=== PATIENT | male | born 1940 | race Caucasian/White ===

== ENCOUNTER 2018-07-31 17:37 | Inpatient (IN) ==
--- NOTE | 2018-07-31 19:03 | Emergency Department Note ---
Entered by Miguel Davenport acting as a scribe for Kurtis Valadez DO History of Present Illness General Chief complaint: Swelling/Edema to Extremity Stated complaint: SWELLING IN LEGS & BELLY Source: patient History of Present Illness Provider complaint: Swelling in legs Onset (ago): day(s) Location: lower extremity, left and right Maximum Pain Intensity: 2 Relieved By: + none Exacerbated By: + none Treatments prior to arrival: none The patient is a 78 year old male who presents to the Emergency Room with complaints of swelling in lower extremities. The patient reports that 3 days ago he saw a cardiology because he has had shortness of breath for 3 weeks along with cold symptoms and tightness in his chest. The patient states that over the past few weeks he has gained 20 lbs. After seeing his geodetic engineer, he states that they increased his dose of metolazone and put him on Augmentin. After these changes to his medications, he lost 8 of the pounds that he had gained. The patient adds that his geodetic engineer wanted to put him in the hospital 1 week ago to get rid of the excess fluids. Prior to arrival, the patient called the geodetic engineer and they told him to come to the ED. The patient has a history of CHF. Home Medications Home Medications Medication Instructions Recorded Confirmed Type amoxicillin-pot clavulanate 1 tab PO BID 07/31/18 07/31/18 History ascorbic acid (vitamin C) 500 mg PO DAILY 07/31/18 07/31/18 History aspirin 81 mg PO DAILY 07/31/18 07/31/18 History citalopram 20 mg PO DAILY 07/31/18 07/31/18 History cod liver oil 1 cap PO DAILY 07/31/18 07/31/18 History esomeprazole magnesium 40 mg PO DAILY 07/31/18 07/31/18 History glipizide 5 mg PO BIDM 07/31/18 07/31/18 History glipizide 10 mg PO BIDM 07/31/18 07/31/18 History guaifenesin 600 mg PO BID PRN 07/31/18 07/31/18 History hydrocodone-acetaminophen 1 tab PO TID PRN 07/31/18 07/31/18 History insulin glargine [Lantus Solostar 24 units SUBCUT HS 07/31/18 07/31/18 History U-100 Insulin] pofmz-[id number] 1 cap PO DAILY 07/31/18 07/31/18 History [krill oil] lidocaine [Lidoderm] 1 patch TOPICAL DAILY 07/31/18 07/31/18 History lisinopril 40 mg PO DAILY 07/31/18 07/31/18 History metolazone 2.5 mg PO MOFR@0900 07/31/18 07/31/18 History multivitamin 1 cap PO DAILY 07/31/18 07/31/18 History omega 8-qbx-frt-fish oil 1 cap PO DAILY 07/31/18 07/31/18 History potassium chloride 10 meq PO DAILY 07/31/18 07/31/18 History pravastatin [Pravachol] 20 mg PO HS 07/31/18 07/31/18 History spironolactone 12.5 mg PO DAILY 07/31/18 07/31/18 History tamsulosin 2 cap PO DAILY@1800 07/31/18 07/31/18 History torsemide 60 mg PO DAILY 07/31/18 07/31/18 History Allergies Allergy/AdvReac Type Severity Reaction Status Date / Time No Known Allergies Verified 07/31/18 23:07 Past Med/Surg History Medical History Venous insufficiency (Chronic) Narcotic dependence (Chronic) Chronic back pain (Chronic) GERD (gastroesophageal reflux disease) (Chronic) Hyperlipidemia (Chronic) Type 2 diabetes mellitus (Chronic) Chronic diastolic heart failure (Chronic) Hypertension (Chronic) Prostate cancer (Resolved) "Prostate, adenocarcinoma, cristina 3 + 3, 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, cT1c, group I TREATMENT: Prostate seed implant - Cesium 131 - 06/30/2011 - monotherapy alone, Lupron for 6 months prior to implantation." Diaphragmatic hernia (Chronic) Diverticulitis (Resolved) Surgical History History of knee replacement (Resolved) History of hip replacement (Resolved) Status post hernia repair (Resolved) Family History Mother Stroke Social History Communication Ability: Effective Beliefs That Will Affect Care: None marital status: Current Living Situation: Alone current occupational status: retired Feels Safe at Home: Yes Safety Concerns: Feels Safe At This Time Smoking Status: Unknown if ever smoked Hx Alcohol Use: Yes Hx Substance Use: No Review of Systems See HPI for pertinent positives & negatives. and A total of 10 systems reviewed and were otherwise negative Physical Exam Vital Signs Vital Signs - 24 hr 07/31/18 19:48 07/31/18 19:49 07/31/18 21:00 Temperature Temperature Source Pulse Rate 73 Pulse Rate [Finger] 73 70 Pulse Rhythm [Finger] Regular Pulse Strength [Finger] Normal Respiratory Rate 20 21 15 Respiratory Effort / Characteristics Non-Labored Non-Labored Respiratory Depth Normal Normal Respiratory Pattern Regular Blood Pressure Blood Pressure [Left Arm] Blood Pressure [Right Arm] 108/68 147/69 H Blood Pressure Mean [Left Arm] Blood Pressure Mean [Right Arm] 81 95 Blood Pressure Position [Right Arm] Sitting Lying Pulse Oximetry 98 99 97 Oxygen Delivery Method Room Air Room Air Room Air 07/31/18 22:46 08/01/18 00:18 08/01/18 00:30 Temperature 36.3 C L Temperature Source Oral Pulse Rate 76 Pulse Rate [Finger] 76 117 H Pulse Rhythm [Finger] Regular Pulse Strength [Finger] Normal Normal Respiratory Rate 16 16 20 Respiratory Effort / Characteristics Non-Labored Non-Labored Spontaneous Respiratory Depth Normal Normal Respiratory Pattern Regular Blood Pressure 128/90 Blood Pressure [Left Arm] Blood Pressure [Right Arm] 156/69 H 115/73 Blood Pressure Mean [Left Arm] Blood Pressure Mean [Right Arm] 98 87 Blood Pressure Position [Right Arm] Lying Pulse Oximetry 98 95 97 Oxygen Delivery Method Room Air Room Air Room Air 08/01/18 01:05 08/01/18 05:16 08/01/18 08:21 Temperature 36.8 C 36.9 C Temperature Source Oral Oral Pulse Rate 76 Pulse Rate [Finger] 73 85 Pulse Rhythm [Finger] Pulse Strength [Finger] Respiratory Rate 20 20 Respiratory Effort / Characteristics Respiratory Depth Respiratory Pattern Blood Pressure Blood Pressure [Left Arm] 172/76 H 138/78 Blood Pressure [Right Arm] Blood Pressure Mean [Left Arm] 108 98 Blood Pressure Mean [Right Arm] Blood Pressure Position [Right Arm] Pulse Oximetry 94 93 Oxygen Delivery Method Room Air 08/01/18 11:23 08/01/18 15:59 Temperature 36.4 C L 36.3 C L Temperature Source Oral Oral Pulse Rate Pulse Rate [Finger] 83 77 Pulse Rhythm [Finger] Pulse Strength [Finger] Respiratory Rate 18 16 Respiratory Effort / Characteristics Respiratory Depth Respiratory Pattern Blood Pressure Blood Pressure [Left Arm] 153/73 H 135/67 Blood Pressure [Right Arm] Blood Pressure Mean [Left Arm] 99 89 Blood Pressure Mean [Right Arm] Blood Pressure Position [Right Arm] Pulse Oximetry 90 94 Oxygen Delivery Method GENERAL: Patient is awake alert in no acute distress patient is resting comfortably and showing no signs of anxiety EYES: The conjunctivae are clear. The pupils are round and reactive. EARS, NOSE, MOUTH AND THROAT: The nose is without any evidence of any deformity. Mucous membranes are moist tongue is midline NECK: The neck is nontender and supple. RESPIRATORY: Diminished breath sounds were noted throughout. There were rales in all lung olsen. Shallow respirations were noted. CARDIOVASCULAR: Regular rate and rhythm noted there no murmurs rubs or gallops normal S1 normal S2 GASTROINTESTINAL: The abdomen is soft. Bowel sounds are present in all quadrants. Abdomen is nontender MUSCULOSKELETAL/EXTREMITIES: There is no evidence of gross deformity full range of motion is noted in the hips and shoulders SKIN: There is bilateral pedal edema appreciated. Venous stasis changes are noted. NEUROLOGIC: Patient is awake alert and oriented x3. Course 1845: Past medical records reviewed. The patient was evaluated in room C12A, and a complete history and physical examination were performed. 1900: I consulted Dr. Cross-Cardiology who reccomended IV Thurosemide. 2051: The patient's creatinine went up a little so I am going to order Bumex 2051: I reviewed the patient's case with Dr. Parker [facility] Hospitalist. He will evaluate the patient for further management. 2150: Upon reevaluation, the patient appeared to have improvement of his symptoms. I discussed tonight's findings with him. He verbalized agreement of the treatment plan. He was discharged home. Administered Medications Hydrocodone Bitart/Acetaminophen ([place] 10/325) 1 tab PO TID PRN PRN Reason: Pain Stop: 08/15/18 00:42 Last Admin: 08/01/18 07:51 Dose: 1 tab Documented by: [id number] Aspirin (Ecotrin Ectab) 81 mg PO DAILY VAISHALI Stop: 08/31/18 08:59 Last Admin: 08/01/18 07:51 Dose: 81 mg Documented by: [id number] Citalopram Hydrobromide (Celexa) 20 mg PO DAILY VIASHALI Stop: 08/31/18 08:59 Last Admin: 08/01/18 07:50 Dose: 20 mg Documented by: [id number] Doxycycline Hyclate (Vibramycin) 100 mg PO BID VAISHALI Stop: 08/11/18 08:59 Last Admin: 08/01/18 07:52 Dose: 100 mg Documented by: [id number] Heparin Sodium (Porcine) (Heparin Sodium (Porcine)) 5,000 units SQ Q8 VAISHALI Stop: 08/31/18 05:59 Last Admin: 08/01/18 13:25 Dose: 5,000 units Documented by: [id number] Cosigned by: [id number] Admin: 08/01/18 06:08 Dose: 5,000 units Documented by: [id number] Cosigned by: [id number] Insulin Aspart (Novolog Flexpen) 0 units SC ACHS VAISHALI Stop: 08/31/18 01:14 Last Admin: 08/01/18 17:53 Dose: 5 units Documented by: [id number] Cosigned by: [id number] Admin: 08/01/18 13:23 Dose: 6 units Documented by: [id number] Cosigned by: [id number] Admin: 08/01/18 08:43 Dose: 4 units Documented by: [id number] Cosigned by: [id number] Admin: 08/01/18 01:46 Dose: 5 units Documented by: [id number] Cosigned by: [id number] Lidocaine (Lidoderm 5%) 1 patch TD DAILY VAISHALI Stop: 08/31/18 08:59 Last Admin: 08/01/18 07:48 Dose: Not Given Documented by: [id number] Pantoprazole Sodium (Protonix) 40 mg PO DAILY VAISHALI Stop: 08/31/18 08:59 Last Admin: 08/01/18 07:52 Dose: 40 mg Documented by: [id number] Tamsulosin HCl (Flomax) 0.4 mg PO DAILY@1800 VAISHALI Stop: 08/31/18 17:59 Last Admin: 08/01/18 17:54 Dose: 0.4 mg Documented by: [id number] Discontinued Medications Bumetanide (Bumex) 0.5 mg IV ONE ONE Stop: 07/31/18 20:53 Last Admin: 07/31/18 22:11 Dose: 0.5 mg Documented by: [id number] Doxycycline Hyclate 100 mg/ (Dextrose) 110 mls @ 50 mls/hr IV NOW STA Stop: 08/01/18 02:00 Last Infusion: 08/01/18 02:45 Dose: 0 mls/hr Documented by: [id number] Admin: 08/01/18 00:21 Dose: 50 mls/hr Documented by: [id number] Insulin Glargine (Lantus Solostar Pen) 10 units SQ ONE ONE Stop: 08/01/18 01:16 Last Admin: 08/01/18 01:45 Dose: 10 units Documented by: [id number] Cosigned by: [id number] Medical Decision Making Differential Diagnosis Differential diagnosis: Etiologies such as infections, reactive airway disease, COPD, pneumonia, pleural effusion, pulmonary edema, ARDS, pneumothorax, CHF, cardiac ischemia, cardiac tamponade, dysrhythmia, anemia, pulmonary embolism, musculoskeletal, gastrointestinal process, as well as others were entertained. Medical Records Attestation: I reviewed the patient's medical records. Home Medications Current Medication List: was personally reviewed by me Laboratory Data Attestation: I reviewed the patient's lab results. Result diagrams: 08/01/18 07:49 08/01/18 07:49 Lab Results 07/31/18 07/31/18 07/31/18 Range/Units 19:47 19:47 19:47 WBC 10.73 (4.8-10.8) K/uL RBC 3.73 L (4.7-6.1) M/uL Hgb 12.1 L (14.0-18.0) g/dL Hct 35.2 L (42-52) % MCV 94.4 (80-100) fL MCH 32.4 (25-34) pg MCHC 34.4 (32-36) g/dL RDW Std Deviation 40.9 (36.4-46.3) fL RDW Coeff of Faiza 12.0 (11.5-14.5) % Plt Count 218 (130-400) K/uL MPV 11.0 H (7.4-10.4) fL Immature Gran % (Auto) 1.0 % Neut % (Auto) 64.3 % Lymph % (Auto) 23.8 % [place] % (Auto) 9.0 % Eos % (Auto) 1.7 % Baso % (Auto) 0.2 % Immature Gran # (Auto) 0.11 H (0.00-0.02) K/uL Neut # (Auto) 6.90 H (1.4-6.5) K/uL Lymph # (Auto) 2.55 (1.2-3.4) K/uL [place] # (Auto) 0.97 H (0.11-0.59) K/uL Eos # (Auto) 0.18 (0-0.5) K/uL Baso # (Auto) 0.02 (0-0.2) K/uL PT 10.8 (9.0-12.0) Seconds INR 1.1 (0.9-1.1) APTT 28.1 (21.0-31.0) Seconds PTT Ratio 1.0 D-Dimer (0-500) ug/L FEU ABG pH (7.35-7.45) ABG pCO2 (35-46) mmHg ABG pO2 (80-95) mm/Hg ABG HCO3 (19-24) mmol/L ABG O2 Saturation (90-95) % ABG Base Excess (-9-1.8) mEq/L Tim Test (Pos) Barometric Pressure mm/Hg Oxygen Given Sodium 130 L (136-145) mmol/L Potassium 4.4 (3.5-5.1) mmol/L Chloride 93 L (98-107) mmol/L Carbon Dioxide 29 (21-32) mmol/L Anion Gap 8.0 (3-11) BUN 56 H (7-18) mg/dl Creatinine 2.05 H (0.6-1.4) mg/dl Est Cr Clr Drug Dosing 40.7 ml/min Est GFR ( Amer) 34.4 Est GFR (Non-Af Amer) 29.7 BUN/Creatinine Ratio 27.2 H (10-20) Glucose 229 H (70-99) mg/dl POC Glucose (70-99) Estimat Average Glucose mg/dl Hemoglobin A1c (4.5-5.6) % Calcium 9.0 (8.5-10.1) mg/dl Magnesium 1.9 (1.8-2.4) mg/dl Total Bilirubin 0.7 (0.2-1) mg/dl AST 51 H (15-37) U/L ALT 64 (12-78) U/L Alkaline Phosphatase 94 (45-117) U/L Troponin I < 0.015 (0-0.045) ng/ml NT-Pro-B Natriuret Pep 27 (0-1800) pg/ml Total Protein 7.4 (6.4-8.2) gm/dl Albumin 3.4 (3.4-5.0) gm/dl Globulin 4.0 (2.5-4.0) gm/dl Albumin/Globulin Ratio 0.8 L (0.9-2) Urine Color Urine Appearance (Clear) Urine pH (4.5-7.5) Ur Specific [place] (1.000-1.030) Urine Protein (Negative) Urine Glucose (UA) (Negative) Urine Ketones (Negative) Urine Blood (Negative) Urine Nitrite (Negative) Urine Bilirubin (Negative) Urine Urobilinogen (Negative) Ur Leukocyte Esterase (Negative) 07/31/18 07/31/18 07/31/18 Range/Units 19:47 19:47 Unknown WBC (4.8-10.8) K/uL RBC (4.7-6.1) M/uL Hgb (14.0-18.0) g/dL Hct (42-52) % MCV (80-100) fL MCH (25-34) pg MCHC (32-36) g/dL RDW Std Deviation (36.4-46.3) fL RDW Coeff of Faiza (11.5-14.5) % Plt Count (130-400) K/uL MPV (7.4-10.4) fL Immature Gran % (Auto) % Neut % (Auto) % Lymph % (Auto) % [place] % (Auto) % Eos % (Auto) % Baso % (Auto) % Immature Gran # (Auto) (0.00-0.02) K/uL Neut # (Auto) (1.4-6.5) K/uL Lymph # (Auto) (1.2-3.4) K/uL [place] # (Auto) (0.11-0.59) K/uL Eos # (Auto) (0-0.5) K/uL Baso # (Auto) (0-0.2) K/uL PT (9.0-12.0) Seconds INR (0.9-1.1) APTT (21.0-31.0) Seconds PTT Ratio D-Dimer 500 (0-500) ug/L FEU ABG pH (7.35-7.45) ABG pCO2 (35-46) mmHg ABG pO2 (80-95) mm/Hg ABG HCO3 (19-24) mmol/L ABG O2 Saturation (90-95) % ABG Base Excess (-9-1.8) mEq/L Tim Test (Pos) Barometric Pressure mm/Hg Oxygen Given Sodium (136-145) mmol/L Potassium (3.5-5.1) mmol/L Chloride (98-107) mmol/L Carbon Dioxide (21-32) mmol/L Anion Gap (3-11) BUN (7-18) mg/dl Creatinine (0.6-1.4) mg/dl Est Cr Clr Drug Dosing ml/min Est GFR ( Amer) Est GFR (Non-Af Amer) BUN/Creatinine Ratio (10-20) Glucose (70-99) mg/dl POC Glucose (70-99) Estimat Average Glucose 203 mg/dl Hemoglobin A1c 8.7 H (4.5-5.6) % Calcium (8.5-10.1) mg/dl Magnesium (1.8-2.4) mg/dl Total Bilirubin (0.2-1) mg/dl AST (15-37) U/L ALT (12-78) U/L Alkaline Phosphatase (45-117) U/L Troponin I (0-0.045) ng/ml NT-Pro-B Natriuret Pep (0-1800) pg/ml Total Protein (6.4-8.2) gm/dl Albumin (3.4-5.0) gm/dl Globulin (2.5-4.0) gm/dl Albumin/Globulin Ratio (0.9-2) Urine Color Yellow Urine Appearance Clear (Clear) Urine pH 5.0 (4.5-7.5) Ur Specific [place] 1.014 (1.000-1.030) Urine Protein Negative (Negative) Urine Glucose (UA) Negative (Negative) Urine Ketones Negative (Negative) Urine Blood Negative (Negative) Urine Nitrite Negative (Negative) Urine Bilirubin Negative (Negative) Urine Urobilinogen Negative (Negative) Ur Leukocyte Esterase Negative (Negative) 08/01/18 08/01/18 08/01/18 Range/Units 01:03 01:50 07:49 WBC 11.21 H (4.8-10.8) K/uL RBC 3.87 L (4.7-6.1) M/uL Hgb 12.6 L (14.0-18.0) g/dL Hct 36.2 L (42-52) % MCV 93.5 (80-100) fL MCH 32.6 (25-34) pg MCHC 34.8 (32-36) g/dL RDW Std Deviation 40.9 (36.4-46.3) fL RDW Coeff of [place] 12.1 (11.5-14.5) % Plt Count 243 (130-400) K/uL MPV 11.1 H (7.4-10.4) fL Immature Gran % (Auto) 0.9 % Neut % (Auto) 54.5 % Lymph % (Auto) 33.5 % [place] % (Auto) 8.4 % Eos % (Auto) 2.3 % Baso % (Auto) 0.4 % Immature Gran # (Auto) 0.10 H (0.00-0.02) K/uL Neut # (Auto) 6.11 (1.4-6.5) K/uL Lymph # (Auto) 3.75 H (1.2-3.4) K/uL [place] # (Auto) 0.94 H (0.11-0.59) K/uL Eos # (Auto) 0.26 (0-0.5) K/uL Baso # (Auto) 0.05 (0-0.2) K/uL PT (9.0-12.0) Seconds INR (0.9-1.1) APTT (21.0-31.0) Seconds PTT Ratio D-Dimer (0-500) ug/L FEU ABG pH (7.35-7.45) ABG pCO2 (35-46) mmHg ABG pO2 (80-95) mm/Hg ABG HCO3 (19-24) mmol/L ABG O2 Saturation (90-95) % ABG Base Excess (-9-1.8) mEq/L Tim Test (Pos) Barometric Pressure mm/Hg Oxygen Given Sodium (136-145) mmol/L Potassium (3.5-5.1) mmol/L Chloride (98-107) mmol/L Carbon Dioxide (21-32) mmol/L Anion Gap (3-11) BUN (7-18) mg/dl Creatinine (0.6-1.4) mg/dl Est Cr Clr Drug Dosing ml/min Est GFR ( Amer) Est GFR (Non-Af Amer) BUN/Creatinine Ratio (10-20) Glucose (70-99) mg/dl POC Glucose 219 H (70-99) Estimat Average Glucose mg/dl Hemoglobin A1c (4.5-5.6) % Calcium (8.5-10.1) mg/dl Magnesium (1.8-2.4) mg/dl Total Bilirubin (0.2-1) mg/dl AST (15-37) U/L ALT (12-78) U/L Alkaline Phosphatase (45-117) U/L Troponin I (0-0.045) ng/ml NT-Pro-B Natriuret Pep (0-1800) pg/ml Total Protein (6.4-8.2) gm/dl Albumin (3.4-5.0) gm/dl Globulin (2.5-4.0) gm/dl Albumin/Globulin Ratio (0.9-2) Urine Color Yellow Urine Appearance Clear (Clear) Urine pH 5.0 (4.5-7.5) Ur Specific [place] 1.012 (1.000-1.030) Urine Protein Negative (Negative) Urine Glucose (UA) Negative (Negative) Urine Ketones Negative (Negative) Urine Blood Negative (Negative) Urine Nitrite Negative (Negative) Urine Bilirubin Negative (Negative) Urine Urobilinogen Negative (Negative) Ur Leukocyte Esterase Negative (Negative) 08/01/18 08/01/18 08/01/18 Range/Units 07:49 13:21 15:37 WBC (4.8-10.8) K/uL RBC (4.7-6.1) M/uL Hgb (14.0-18.0) g/dL Hct (42-52) % MCV (80-100) fL MCH (25-34) pg MCHC (32-36) g/dL RDW Std Deviation (36.4-46.3) fL RDW Coeff of [place] (11.5-14.5) % Plt Count (130-400) K/uL MPV (7.4-10.4) fL Immature Gran % (Auto) % Neut % (Auto) % Lymph % (Auto) % [place] % (Auto) % Eos % (Auto) % Baso % (Auto) % Immature Gran # (Auto) (0.00-0.02) K/uL Neut # (Auto) (1.4-6.5) K/uL Lymph # (Auto) (1.2-3.4) K/uL [place] # (Auto) (0.11-0.59) K/uL Eos # (Auto) (0-0.5) K/uL Baso # (Auto) (0-0.2) K/uL PT (9.0-12.0) Seconds INR (0.9-1.1) APTT (21.0-31.0) Seconds PTT Ratio D-Dimer (0-500) ug/L FEU ABG pH 7.41 (7.35-7.45) ABG pCO2 46 (35-46) mmHg ABG pO2 73 L (80-95) mm/Hg ABG HCO3 29 H (19-24) mmol/L ABG O2 Saturation 94.1 (90-95) % ABG Base Excess 3.5 H (-9-1.8) mEq/L Tim Test Pos (Pos) Barometric Pressure 737.6 mm/Hg Oxygen Given ROOM AIR Sodium 132 L (136-145) mmol/L Potassium 4.2 (3.5-5.1) mmol/L Chloride 96 L (98-107) mmol/L Carbon Dioxide 26 (21-32) mmol/L Anion Gap 10.0 (3-11) BUN 56 H (7-18) mg/dl Creatinine 1.95 H (0.6-1.4) mg/dl Est Cr Clr Drug Dosing 42.4 ml/min Est GFR ( Amer) 36.6 Est GFR (Non-Af Amer) 31.6 BUN/Creatinine Ratio 28.9 H (10-20) Glucose 168 H (70-99) mg/dl POC Glucose 213 H (70-99) Estimat Average Glucose mg/dl Hemoglobin A1c (4.5-5.6) % Calcium 9.3 (8.5-10.1) mg/dl Magnesium (1.8-2.4) mg/dl Total Bilirubin (0.2-1) mg/dl AST (15-37) U/L ALT (12-78) U/L Alkaline Phosphatase (45-117) U/L Troponin I (0-0.045) ng/ml NT-Pro-B Natriuret Pep (0-1800) pg/ml Total Protein (6.4-8.2) gm/dl Albumin (3.4-5.0) gm/dl Globulin (2.5-4.0) gm/dl Albumin/Globulin Ratio (0.9-2) Urine Color Urine Appearance (Clear) Urine pH (4.5-7.5) Ur Specific [place] (1.000-1.030) Urine Protein (Negative) Urine Glucose (UA) (Negative) Urine Ketones (Negative) Urine Blood (Negative) Urine Nitrite (Negative) Urine Bilirubin (Negative) Urine Urobilinogen (Negative) Ur Leukocyte Esterase (Negative) 08/01/18 Range/Units 16:27 WBC (4.8-10.8) K/uL RBC (4.7-6.1) M/uL Hgb (14.0-18.0) g/dL Hct (42-52) % MCV (80-100) fL MCH (25-34) pg MCHC (32-36) g/dL RDW Std Deviation (36.4-46.3) fL RDW Coeff of [place] (11.5-14.5) % Plt Count (130-400) K/uL MPV (7.4-10.4) fL Immature Gran % (Auto) % Neut % (Auto) % Lymph % (Auto) % [place] % (Auto) % Eos % (Auto) % Baso % (Auto) % Immature Gran # (Auto) (0.00-0.02) K/uL Neut # (Auto) (1.4-6.5) K/uL Lymph # (Auto) (1.2-3.4) K/uL [place] # (Auto) (0.11-0.59) K/uL Eos # (Auto) (0-0.5) K/uL Baso # (Auto) (0-0.2) K/uL PT (9.0-12.0) Seconds INR (0.9-1.1) APTT (21.0-31.0) Seconds PTT Ratio D-Dimer (0-500) ug/L FEU ABG pH (7.35-7.45) ABG pCO2 (35-46) mmHg ABG pO2 (80-95) mm/Hg ABG HCO3 (19-24) mmol/L ABG O2 Saturation (90-95) % ABG Base Excess (-9-1.8) mEq/L Tim Test (Pos) Barometric Pressure mm/Hg Oxygen Given Sodium (136-145) mmol/L Potassium (3.5-5.1) mmol/L Chloride (98-107) mmol/L Carbon Dioxide (21-32) mmol/L Anion Gap (3-11) BUN (7-18) mg/dl Creatinine (0.6-1.4) mg/dl Est Cr Clr Drug Dosing ml/min Est GFR ( Amer) Est GFR (Non-Af Amer) BUN/Creatinine Ratio (10-20) Glucose (70-99) mg/dl POC Glucose 210 H (70-99) Estimat Average Glucose mg/dl Hemoglobin A1c (4.5-5.6) % Calcium (8.5-10.1) mg/dl Magnesium (1.8-2.4) mg/dl Total Bilirubin (0.2-1) mg/dl AST (15-37) U/L ALT (12-78) U/L Alkaline Phosphatase (45-117) U/L Troponin I (0-0.045) ng/ml NT-Pro-B Natriuret Pep (0-1800) pg/ml Total Protein (6.4-8.2) gm/dl Albumin (3.4-5.0) gm/dl Globulin (2.5-4.0) gm/dl Albumin/Globulin Ratio (0.9-2) Urine Color Urine Appearance (Clear) Urine pH (4.5-7.5) Ur Specific [place] (1.000-1.030) Urine Protein (Negative) Urine Glucose (UA) (Negative) Urine Ketones (Negative) Urine Blood (Negative) Urine Nitrite (Negative) Urine Bilirubin (Negative) Urine Urobilinogen (Negative) Ur Leukocyte Esterase (Negative) Imaging Data Radiologist's Impression: Radiology results as stated below per my review and the radiologist's interpretation: XR chest 1V portable CLINICAL HISTORY: Dyspnea COMPARISON STUDY: Chest radiograph March 06, 2016. FINDINGS: Lung volumes are normal. There is no pneumothorax or pleural effusion. There is no evidence for pulmonary edema. Mild cardiomegaly is noted. Apparent bibasilar opacities favor atelectasis or epicardial fat pad. There is no definite consolidation. IMPRESSION: 1. No definite acute cardiopulmonary. 2. Bibasilar opacities which favor atelectasis or prominent epicardial fat pad. Electronically signed by: Jose Ontiveros M.D. 07/31/2018 8:54 PM ECG Data Attestation: I personally reviewed and interpreted this ECG as follows: Indication: other (edema of the lower extremeities bilaterally) Rate (beats per minute): 73 Rhythm: normal sinus Findings: no PAC, no PVC, no ST depression, no ST elevation and no ectopy Comparison ECG Date: from (02/05/16) Change: no significant change Blood Pressure Blood Pressure Findings: Normal blood pressure MDM Narrative The patient is an 78-year-old male who presented to the emergency department for an evaluation of difficulty breathing. The patient has been having weight gain as well as peripheral edema. He also describes orthopnea. The patient's his tory and physical exam appear to be consistent with congestive heart failure. I discussed patient's condition with his primary cardiology group. I also discussed his case with the on-call [facility] hospitalist. They have agreed to evaluate the patient in the emergency department for further management and disposition. The patient was treated with a low dose of IV Bumex in the emergency department. He was resting comfortably on subsequent reevaluation. Impression & Plan CHF (congestive heart failure), Edema, peripheral Discharge Plan Visit Data *Final* Discharge Date/Time: 08/01/18 00:18 Chief Complaint: Swelling/Edema to Extremity Stated Complaint: SWELLING IN LEGS & BELLY ED Provider: Kurtis Valadez Discharge Problem: CHF (congestive heart failure), Edema, peripheral Patient Disposition: Admitted As Inpatient Discharge Instructions Interventions: ED Discharge Assessment Last Done: 08/01/18 00:18 Discharge Problem: CHF (congestive heart failure) Qualifiers: Heart failure type: unspecified Heart failure chronicity: unspecified Qualified Code(s): I50.9 - Heart failure, unspecified The scribe's documentation has been prepared under my direction and personally reviewed by me in its entirety. I confirm that the note above accurately reflects all work, treatment, procedures, and medical decision making performed by me.
[2018-07-31 19:59] LABS: Basophils # (auto) 0.02 K/uL (0-0.2); Basophils % (auto) 0.2 %; Eosinophils # (auto) 0.18 K/uL (0-0.5); Eosinophils % (auto) 1.7 %; Hematocrit (blood only) 35.2 % (42-52); Hemoglobin 12.1 g/dL (14.0-18.0); Immature Granulocytes # (auto) 0.11 K/uL (0.00-0.02); Lymphocytes # (auto) 2.55 K/uL (1.2-3.4); Lymphocytes % (auto) 23.8 %; Mean Corpuscular Hgb Conc 34.4 g/dL (32-36); Mean Corpuscular Volume 94.4 fL (80-100); Monocytes # (auto) 0.97 K/uL (0.11-0.59); Neutrophils % (auto) 64.3 %; Platelet Count 218 K/uL (130-400); RDW Standard Deviation 40.9 fL (36.4-46.3); Red Blood Count 3.73 M/uL (4.7-6.1); White Blood Count 10.73 K/uL (4.8-10.8)
[2018-07-31 20:18] LABS: INR 1.1 (0.9-1.1); Partial Thromboplastin Time 28.1 Seconds (21.0-31.0); Prothrombin Time 10.8 Seconds (9.0-12.0)
[2018-07-31 20:19] LABS: Alanine Aminotransferase 64 U/L (12-78); Albumin Level 3.4 gm/dl (3.4-5.0); Aspartate Aminotransferase 51 U/L (15-37); BUN Creatinine Ratio 27.2 (10-20); Blood Urea Nitrogen 56 mg/dl (7-18); Carbon Dioxide 29 mmol/L (21-32); Chloride 93 mmol/L (98-107); Creatinine Clr Calc Pharmacy 40.7 ml/min; Est GFR (African American) 34.4; Est GFR (Non-African American) 29.7; Glucose 229 mg/dl (70-99); Magnesium 1.9 mg/dl (1.8-2.4); Potassium 4.4 mmol/L (3.5-5.1); Sodium 130 mmol/L (136-145)
[2018-07-31 20:24] LABS: Albumin Globulin Ratio 0.8 (0.9-2); Alkaline Phosphatase 94 U/L (45-117); Bilirubin,Total 0.7 mg/dl (0.2-1); NT Pro B Type Natriuretic Pept 27 pg/ml (0-1800); Total Protein 7.4 gm/dl (6.4-8.2); Troponin I < 0.015 ng/ml (0-0.045)
[2018-07-31] MEDS ORDERED: BUMETANIDE 0.5 MG in SYRINGE 0 ML IV ONE (20:52)
[2018-07-31] MEDS ORDERED: BUMETANIDE SOLN 1 MG/4 ML VIAL IV ONE (20:52)
--- NOTE | 2018-07-31 20:55 | XRay Report ---
XR chest 1V portable CLINICAL HISTORY: Dyspnea COMPARISON STUDY: Chest radiograph March 06, 2016. FINDINGS: Lung volumes are normal. There is no pneumothorax or pleural effusion. There is no evidence for pulmonary edema. Mild cardiomegaly is noted. Apparent bibasilar opacities favor atelectasis or e picardial fat pad. There is no definite consolidation. IMPRESSION: 1. No definite acute cardiopulmonary. 2. Bibasilar opacities which favor atelectasis or prominent epicardial fat pad. Electronically signed by: Jose Ontiveros M.D. 07/31/2018 8:54 PM
[2018-07-31 22:07] LABS: D Dimer 500 ug/L FEU (0-500)
--- NOTE | 2018-07-31 22:11 | History & Physical Report ---
Date of Service July 31, 2018 Assessment & Plan (1) Heart failure, diastolic, with acute decompensation: This is an 78-year-old male with a past medical history of chronic diastolic heart failure, DM II, HTN, HLD, venous insufficiency, chronic low back pain and other medical problems listed below who presents with worsening bilateral lower extremity swelling x 2 weeks and was found to have acute decompensated heart failure. -Took home dose Torsemide 60mg, metolazone 2.5mg, Spironolactone 12.5mg this morning -Given Bumex 0.5mg IV x 1 in ED -BNP pending, d-dimer wnl, troponin wnl -CXR without evidence of pulmonary edema -Echo from December 2015 with preserved EF of 65-69%, mild TR -Repeat labs and ECG in AM -Restrict fluid intake, monitor daily weights -Further management per Dr. Gaitan's addendum (2) Acute kidney injury: Cr elevated at 2.05 (baseline mid-1s) -Likely due to increased diuretic doses -Hold lisinopril -Continue trending BMP, avoid nephrotoxic agents when able (3) Type 2 diabetes mellitus: A1c of 8.4 in Apr 2018 -Hold home agents -Repeat a1c -SSI while in-patient -BSG AC HS (4) Hypertension: Slightly elevated at 147/69 -Hold lisinopril in setting of PARMJIT -Add PRN medication if indicated (5) Bronchitis: Resolving -Continue Augmentin to complete course (6) Chronic back pain: Continue home dose hydrocodone (7) GERD (gastroesophageal reflux disease): Continue PPI (8) Mood disorder: Continue Celexa Code status: FULL per discussion with patient PCP: Dalia Dispo: Admitted to telemetry Patient seen in collaboration with Dr. Gaitan. Please see addendum. History of Present Illness Chief Complaint: Lower extremity swelling Primary Care Provider: NO PCP This is an 78-year-old male with a past medical history of chronic diastolic heart failure, DM II, HTN, HLD, venous insufficiency, chronic low back pain and other medical problems listed below who presents with worsening bilateral lower extremity swelling x 2 weeks. Patient has seen Dr. Tilley and Fredis Pink PA-C in clinic over the past few weeks with diuretic medication adjustments and attempt to decrease volume overload. On July 27, patient was instructed to discontinue Lasix and to start torsemide 60 mg daily as well as taking 2.5 mg metolazone in the morning on Mondays and Fridays. Patient continues to note worsening swelling to lower extremities with some blistering and weeping. Legs have become red and are painful. Also notes abdominal distention. Experiences orthopnea but but denies shortness of breath as long as he is seated upright. No lightheadedness, near syncope, chest pain, palpitations or wheezing. Was also started on course of Augmentin for bronchitis, for which he has completed 5 days of antibiotics. Most recent echo on record is from December 2015 that shows preserved EF of 65-69% and mild tricuspid regurgitation. Has been trying to watch his diet. Denies fever, chills, headache, nausea, vomiting, abdominal pain, dysuria, diarrhea or constipation. Allergies Allergy/AdvReac Type Severity Reaction Status Date / Time No Known Allergies Verified 07/31/18 23:07 Home Medications Home Medications Medication Instructions Recorded Confirmed Type amoxicillin-pot clavulanate 1 tab PO BID 07/31/18 07/31/18 History ascorbic acid (vitamin C) 500 mg PO DAILY 07/31/18 07/31/18 History aspirin 81 mg PO DAILY 07/31/18 07/31/18 History citalopram 20 mg PO DAILY 07/31/18 07/31/18 History cod liver oil 1 cap PO DAILY 07/31/18 07/31/18 History esomeprazole magnesium 40 mg PO DAILY 07/31/18 07/31/18 History glipizide 5 mg PO BIDM 07/31/18 07/31/18 History glipizide 10 mg PO BIDM 07/31/18 07/31/18 History guaifenesin 600 mg PO BID PRN 07/31/18 07/31/18 History hydrocodone-acetaminophen 1 tab PO TID PRN 07/31/18 07/31/18 History insulin glargine [Lantus Solostar 24 units SUBCUT HS 07/31/18 07/31/18 History U-100 Insulin] [id number] 1 cap PO DAILY 07/31/18 07/31/18 History [krill oil] lidocaine [Lidoderm] 1 patch TOPICAL DAILY 07/31/18 07/31/18 History lisinopril 40 mg PO DAILY 07/31/18 07/31/18 History metolazone 2.5 mg PO MOFR@0900 07/31/18 07/31/18 History multivitamin 1 cap PO DAILY 07/31/18 07/31/18 History omega 9-nms-gat-fish oil 1 cap PO DAILY 07/31/18 07/31/18 History potassium chloride 10 meq PO DAILY 07/31/18 07/31/18 History pravastatin [Pravachol] 20 mg PO HS 07/31/18 07/31/18 History spironolactone 12.5 mg PO DAILY 07/31/18 07/31/18 History tamsulosin 2 cap PO DAILY@1800 07/31/18 07/31/18 History torsemide 60 mg PO DAILY 07/31/18 07/31/18 History Past Med/Surg History Medical History Venous insufficiency (Chronic) Narcotic dependence (Chronic) Chronic back pain (Chronic) GERD (gastroesophageal reflux disease) (Chronic) Hyperlipidemia (Chronic) Type 2 diabetes mellitus (Chronic) Chronic diastolic heart failure (Chronic) Hypertension (Chronic) Prostate cancer (Resolved) "Prostate, adenocarcinoma, cristina 3 + 3, 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, cT1c, group I TREATMENT: Prostate seed implant - Cesium 131 - 06/30/2011 - monotherapy alone, Lupron for 6 months prior to implantation." Diaphragmatic hernia (Chronic) Diverticulitis (Resolved) Surgical History History of knee replacement (Resolved) History of hip replacement (Resolved) Status post hernia repair (Resolved) Family History Mother Stroke Social History Preferred Language: Setswana Communication Ability: Effective Support Team Assoc Required: No Beliefs That Will Affect Care: None Current Living Situation: Alone current occupational status: retired Feels Safe at Home: Yes Safety Concerns: Feels Safe At This Time Smoking Status: Unknown if ever smoked Hx Alcohol Use: Yes Hx Substance Use: No Review of Systems All systems reviewed & are unremarkable except as noted in HPI & below Physical Exam Vital Signs (Past 24 Hours): Last Vital Signs Temp 36.7 C 07/31/18 17:48 Pulse 73 07/31/18 19:49 Resp 21 07/31/18 19:49 BP 108/68 07/31/18 19:48 Pulse Ox 99 07/31/18 19:49 Physical Exam: General Appearance: WD/WN, no apparent distress, obese Head: normocephalic, atraumatic Eyes: normal inspection, PERRL, EOMI ENT: hearing grossly normal, pharynx normal (moist mucous membranes) Neck: supple, no JVD, no adenopathy Respiratory/Chest: lungs clear to auscultation. No wheezes, rales or rhonci. No respiratory distress or accessory muscle use Cardiovascular: regular rate, rhythm, no murmur, normal peripheral pulses, 2+ pitting edema of bilateral lower extremity Abdomen/GI: normal bowel sounds, distended, firm, non-tender to palpation Extremities/Musculoskelatal: normal inspection, no calf tenderness, normal capillary refill Neurologic/Psych: alert, normal mood/affect, oriented x 3 Skin: normal color, warm/dry. BLE with hyperpigmentation and erythema, areas of closed blisters on both extremities Results & Data Laboratory Results Short CBC 07/31/18 Range/Units 19:47 WBC 10.73 (4.8-10.8) K/uL Hgb 12.1 L (14.0-18.0) g/dL Hct 35.2 L (42-52) % Plt Count 218 (130-400) K/uL BMP 07/31/18 19:47 Sodium 130 L Potassium 4.4 Chloride 93 L Carbon Dioxide 29 BUN 56 H Creatinine 2.05 H Glucose 229 H Calcium 9.0 Cardiac Enzymes 07/31/18 Range/Units 19:47 Troponin I < 0.015 (0-0.045) ng/ml Liver Function 07/31/18 Range/Units 19:47 Total Bilirubin 0.7 (0.2-1) mg/dl AST 51 H (15-37) U/L ALT 64 (12-78) U/L Alkaline Phosphatase 94 (45-117) U/L Albumin 3.4 (3.4-5.0) gm/dl Diagnostic Findings CXR: IMPRESSION: 1. No definite acute cardiopulmonary. 2. Bibasilar opacities which favor atelectasis or prominent epicardial fat pad. ECG Rhythm: normal sinus Change: no significant change Code Status & VTE Plan Code Status FULL Supervising Physician Co-Signing Physician Notes IM ATTENDING : Patient seen and examined. History obtained from patient and records. Preceding documentation by Ms. Vale Maurer PA-C reviewed. FINAL ASSESSMENT AND PLAN as follows : Exertional SOB/weight gain ? Subacute RSHF History diastolic dysfunction, EF 65% TTE 2016 Some degree of weight loss after diuretic regimen changes following outpx [facility] Cardiology visit last week. History nonocclusive CAD as per records Abdominal distention rule out ascites Bilateral LE cellulitis no sepsis ARF on CRI Recent bronchitis, improved post Augmentin Rx Acute on chronic anemia ? Secondary to CKD ? New baseline DM 2, insulin requiring, suboptimal control as of recent outpatient hemoglobin A1c of 10.8 last September 2017 Prostate cancer status post radiation, Lupron Rx Past tobacco abuse Medical telemetry Strict I/Os, daily weights, fluid restriction Monitor renal function, renal ultrasound if with worsening kidney function TTE RE exertional S OB Cardiology consult RE diuretic recommendations Abdominal ultrasound rule out ascites Doxycycline, local measures for LE cellulitis Basal insulin, ISS BG goal 140-180 pound, carb count coverage, patient due for hemoglobin A1c recheck DVT prophylaxis. Heparin subcu Full code
[2018-07-31] MEDS ORDERED: DOXYCYCLINE HYCLATE 100 MG in DEXTROSE 5% 100 ML IV STA (23:49)
[2018-08-01 00:35] LABS: Appearance Urine Clear (Clear); Bilirubin Urine Negative (Negative); Blood Urine Negative (Negative); Color Urine Yellow; Glucose Urine UA Negative (Negative); Ketones Urine Negative (Negative); Leukocyte Esterase Urine Negative (Negative); Nitrite Urine Negative (Negative); Protein Urine Negative (Negative); Specific Gravity Urine 1.014 (1.000-1.030); Urobilinogen Urine Negative (Negative)
[2018-08-01] MEDS ORDERED: GLUCOSE 10 TABS/TUBE PO PRN (00:43)
[2018-08-01] MEDS ORDERED: CARBOHYDRATES FOR HYPOGLYCEMIA PO PRN (00:43)
[2018-08-01] MEDS ORDERED: GLUCAGON FOR INJ 1 MG VIAL SQ PRN (00:43)
[2018-08-01] MEDS ORDERED: GLUCOSE 40% GEL 15 GM TUBE PO PRN (00:43)
[2018-08-01] MEDS ORDERED: HYDROmorphone INJ 0.5 MG/0.5 ML SYR IV PRN (00:43)
[2018-08-01] MEDS ORDERED: PROCHLORPERAZINE 5 MG in SYRINGE 4 ML IV PRN (00:43)
[2018-08-01] MEDS ORDERED: ACETAMINOPHEN 325 MG TAB PO PRN (00:43)
[2018-08-01] MEDS ORDERED: DEXTROSE 50% 50 ML SYRINGE IV PRN (00:43)
[2018-08-01] MEDS ORDERED: INSULIN GLARGINE SOLOSTAR 100 UNITS/ML 3 ML PEN SQ ONE (01:15)
[2018-08-01] MEDS: INSULIN ASPART 100 UNITS/ML 3 ML PEN SC SCH ×5 (01:46→21:48)
[2018-08-01 02:12] LABS: Appearance Urine Clear (Clear); Bilirubin Urine Negative (Negative); Blood Urine Negative (Negative); Color Urine Yellow; Glucose Urine UA Negative (Negative); Ketones Urine Negative (Negative); Leukocyte Esterase Urine Negative (Negative); Nitrite Urine Negative (Negative); Protein Urine Negative (Negative); Specific Gravity Urine 1.012 (1.000-1.030); Urobilinogen Urine Negative (Negative)
[2018-08-01] MEDS: HEPARIN SOD 5,000 UNIT/0.5 ML VIAL SQ SCH ×3 (06:08→21:50)
[2018-08-01 07:20] LABS: Estimated Average Glucose 203 mg/dl; Hemoglobin A1C 8.7 % (4.5-5.6)
[2018-08-01] MEDS: LIDOCAINE 5% 1 PATCH TD SCH (07:48)
[2018-08-01] MEDS: CITALOPRAM 20 MG TAB PO SCH (07:50)
[2018-08-01] MEDS: ASPIRIN 81 MG ECTAB PO SCH (07:51)
[2018-08-01] MEDS: HYDROCODONE/ACETAMINOPHEN 10/325 TAB PO PRN ×2 (07:51→22:03)
[2018-08-01] MEDS: DOXYCYCLINE HYCLATE 100 MG CAP PO SCH ×2 (07:52→21:50)
[2018-08-01] MEDS: PANTOprazole 40 MG TAB PO SCH (07:52)
[2018-08-01 08:10] LABS: Basophils # (auto) 0.05 K/uL (0-0.2); Basophils % (auto) 0.4 %; Eosinophils # (auto) 0.26 K/uL (0-0.5); Eosinophils % (auto) 2.3 %; Hematocrit (blood only) 36.2 % (42-52); Hemoglobin 12.6 g/dL (14.0-18.0); Immature Granulocytes % (auto) 0.9 %; Lymphocytes # (auto) 3.75 K/uL (1.2-3.4); Lymphocytes % (auto) 33.5 %; Mean Corpuscular Hgb Conc 34.8 g/dL (32-36); Mean Corpuscular Volume 93.5 fL (80-100); Mean Platelet Volume 11.1 fL (7.4-10.4); Monocytes # (auto) 0.94 K/uL (0.11-0.59); Monocytes % (auto) 8.4 %; Neutrophils # (auto) 6.11 K/uL (1.4-6.5); Neutrophils % (auto) 54.5 %; Platelet Count 243 K/uL (130-400); RDW Coefficient of Variation 12.1 % (11.5-14.5); RDW Standard Deviation 40.9 fL (36.4-46.3); Red Blood Count 3.87 M/uL (4.7-6.1); White Blood Count 11.21 K/uL (4.8-10.8)
[2018-08-01 08:38] LABS: BUN Creatinine Ratio 28.9 (10-20); Calcium 9.3 mg/dl (8.5-10.1); Creatinine Clr Calc Pharmacy 42.4 ml/min; Est GFR (African American) 36.6; Est GFR (Non-African American) 31.6; Potassium 4.2 mmol/L (3.5-5.1)
--- NOTE | 2018-08-01 10:08 | Ultrasound Report ---
ULTRASOUND ASCITES CHECK CLINICAL HISTORY: Abdominal bloating. Ascites check. COMPARISON STUDY: Abdominal CT dated 02/05/2016. FINDINGS: Real-time grayscale sonography of all 4 quadrants of the abdomen was performed to assess fo r abdominal ascites. There is no abdominal ascites identified. The liver is enlarged and steatotic. IMPRESSION: 1. No abdominal ascites is identified. 2. Hepatomegaly and severe hepatic steatosis. Electronically signed by: Miguel Bloom M.D. 08/01/2018 10:06 AM
[2018-08-01] MEDS ORDERED: PNEUMOCOCCAL ADMINISTRATION CHARGE ONE (10:30)
[2018-08-01] MEDS ORDERED: PNEUMOCOCCAL POLYSACCHARIDES 25 MCG/0.5 ML VIAL/SYR IM ONE (10:30)
[2018-08-01 15:49] LABS: Allen Test Pos (Pos); HCO3 ABG 29 mmol/L (19-24); Oxygen Saturation ABG 94.1 % (90-95); PCO2 ABG 46 mmHg (35-46); PO2 ABG 73 mm/Hg (80-95); pH ABG 7.41 (7.35-7.45)
--- NOTE | 2018-08-01 17:03 | Hospitalist Progress Note ---
Date of Service August 01, 2018 Assessment & Plan (1) Heart failure, diastolic, with acute decompensation: This is an 78-year-old male with a past medical history of chronic diastolic heart failure, DM II, HTN, HLD, venous insufficiency, chronic low back pain and other medical problems listed below who presents with worsening bilateral lower extremity swelling x 2 weeks and was found to have acute decompensated heart failure. -Took home dose Torsemide 60mg, metolazone 2.5mg, Spironolactone 12.5mg this morning -Given Bumex 0.5mg IV x 1 in ED -CXR without evidence of pulmonary edema -Echo from December 2015 with preserved EF of 65-69%, mild TR -Repeat echo this morning; mild concentric left ventricular hypertrophy, no wall motion abnormality, EF of 55-60% and grade 1 diastolic dysfunction -Restrict fluid intake, monitor daily weights -Appreciate cardiology input and recommendation (2) Acute kidney injury: Cr elevated at 2.05 (baseline mid-1s) -Likely due to increased diuretic doses -Hold lisinopril -Continue trending BMP, avoid nephrotoxic agents when able -Creatinine is little improved to 1.95 -We will monitor PRP while in the hospital (3) Type 2 diabetes mellitus: A1c of 8.4 in Apr 2018 -Hold home agents -Repeat a1c- 8.7 this morning -SSI while in-patient -BSG AC HS (4) Hypertension: Slightly elevated at 147/69 -Hold lisinopril in setting of PARMJIT -Add PRN medication if indicated (5) Bronchitis: Resolving -Received intravenous doxycycline and now on oral doxy -No acute shortness of breath (6) Chronic back pain: Continue home dose hydrocodone (7) GERD (gastroesophageal reflux disease): Continue PPI (8) Mood disorder: Continue Celexa Code status: FULL per discussion with patient PCP: Dalia Dispo: Admitted to telemetry Patient seen in collaboration with Dr. Gaitan. Please see addendum. Subjective Is an 78 years old obese male with significant past medical history of diabetes type 2, chronic diastolic heart failure, hypertension, hyperlipidemia, history of prostate cancer was admitted yesterday with with bilateral lower extremity swelling and redness associated with shortness of breath. 08/01 The patient was seen and examined in medical floor Swelling of the legs are better and the redness of the legs are better to He denies any weight gain He denies any shortness of breath, chest pain and/or palpitation Physical Exam Vital Signs (Past 24 Hours): Last Vital Signs Temp 36.3 C L 08/01/18 15:59 Pulse 77 08/01/18 15:59 Resp 16 08/01/18 15:59 BP 135/67 08/01/18 15:59 Pulse Ox 94 08/01/18 15:59 Physical Exam: No apparent distress at rest Constitutional: WD/WN, vitals as above Eyes: PERRL, conjunctivae normal, anicteric sclerae ENMT: external ear and nose normal, oropharynx normal Neck: trachea midline, no thyromegaly Respiratory: normal respiratory effort; no respiratory distress Auscultation: + diminished lung sounds Cardiovascular: Rate/Rhythm: regular rate and regular rhythm Heart Sounds: normal S1 and normal S2 Extremities: + edema (Bilateral leg edema of 1+ with chronic skin changes. Redness has improved) Gastrointestinal (Abdomen): Inspection/Auscultation: abdomen normal to inspection and normal bowel sounds Percussion/Palpation: abdomen soft Neurologic: Alert, awake and oriented x3 Results & Data Laboratory Results Short CBC 07/31/18 08/01/18 Range/Units 19:47 07:49 WBC 10.73 11.21 H (4.8-10.8) K/uL Hgb 12.1 L 12.6 L (14.0-18.0) g/dL Hct 35.2 L 36.2 L (42-52) % Plt Count 218 243 (130-400) K/uL BMP 07/31/18 08/01/18 19:47 07:49 Sodium 130 L 132 L Potassium 4.4 4.2 Chloride 93 L 96 L Carbon Dioxide 29 26 BUN 56 H 56 H Creatinine 2.05 H 1.95 H Glucose 229 H 168 H Calcium 9.0 9.3 Cardiac Enzymes 07/31/18 Range/Units 19:47 Troponin I < 0.015 (0-0.045) ng/ml Liver Function 07/31/18 Range/Units 19:47 Total Bilirubin 0.7 (0.2-1) mg/dl AST 51 H (15-37) U/L ALT 64 (12-78) U/L Alkaline Phosphatase 94 (45-117) U/L Albumin 3.4 (3.4-5.0) gm/dl Urine 07/31/18 08/01/18 Range/Units Unknown 01:50 Urine Color Yellow Yellow Urine Appearance Clear Clear (Clear) Urine pH 5.0 5.0 (4.5-7.5) Ur Specific [place] 1.014 1.012 (1.000-1.030) Urine Protein Negative Negative (Negative) Urine Glucose (UA) Negative Negative (Negative) Medications Administered Current Inpatient Medications Acetaminophen (Tylenol) 650 mg PO Q4H PRN PRN Reason: Pain or Fever Stop: 08/31/18 00:42 Hydrocodone Bitart/Acetaminophen ([place] 10/325) 1 tab PO TID PRN PRN Reason: Pain Stop: 08/15/18 00:42 Last Admin: 08/01/18 07:51 Dose: 1 tab Documented by: Aspirin (Ecotrin Ectab) 81 mg PO DAILY [facility] Stop: 08/31/18 08:59 Last Admin: 08/01/18 07:51 Dose: 81 mg Documented by: Citalopram Hydrobromide (Celexa) 20 mg PO DAILY [facility] Stop: 08/31/18 08:59 Last Admin: 08/01/18 07:50 Dose: 20 mg Documented by: Dextrose (Dextrose 50%) 25 - 50 ml IV UD PRN; Protocol PRN Reason: Hypoglycemia Protocol Stop: 08/31/18 00:42 Doxycycline Hyclate (Vibramycin) 100 mg PO BID VA[facility]ALI Stop: 08/11/18 08:59 Last Admin: 08/01/18 07:52 Dose: 100 mg Documented by: Glucagon (Glucagen) 1 mg SQ UD PRN; Protocol PRN Reason: Hypoglycemia Protocol Stop: 08/31/18 00:42 Glucose (Dex4 Glucose) 4 - 8 tabs PO UD PRN; Protocol PRN Reason: Hypoglycemia Protocol Stop: 08/31/18 00:42 Glucose (Glucose 40%) 15 - 30 gm PO UD PRN; Protocol PRN Reason: Hypoglycemia Protocol Stop: 08/31/18 00:42 Heparin Sodium (Porcine) (Heparin Sodium (Porcine)) 5,000 units SQ Q8 [facility] Stop: 08/31/18 05:59 Last Admin: 08/01/18 13:25 Dose: 5,000 units Documented by: Hydromorphone HCl (Dilaudid) 0.5 mg IV Q3H PRN PRN Reason: Pain Stop: 08/15/18 00:42 Prochlorperazine 5 mg/ Syringe 5 mls @ 5 mls/min IV Q6H PRN PRN Reason: Nausea And Vomiting Stop: 08/31/18 00:42 Insulin Aspart (Novolog Flexpen) 0 units SC ACHS [facility] Stop: 08/31/18 01:14 Last Admin: 08/01/18 13:23 Dose: 6 units Documented by: Lidocaine (Lidoderm 5%) 1 patch TD DAILY [facility] Stop: 08/31/18 08:59 Last Admin: 08/01/18 07:48 Dose: Not Given Documented by: Miscellaneous (Remove Lidoderm Patch) 1 ea N/A DAILY@2100 [facility] Stop: 08/31/18 20:59 Miscellaneous (Carbohydrates For Hypoglycemia) 15 - 30 gm PO UD PRN PRN Reason: Hypoglycemia Treatment Stop: 08/31/18 00:42 Pantoprazole Sodium (Protonix) 40 mg PO DAILY [facility] Stop: 08/31/18 08:59 Last Admin: 08/01/18 07:52 Dose: 40 mg Documented by: Tamsulosin HCl (Flomax) 0.4 mg PO DAILY@1800 [facility] Stop: 08/31/18 17:59
[2018-08-01] MEDS: TAMSULOSIN HCL 0.4 MG CAP PO SCH (17:54)
--- NOTE | 2018-08-02 01:11 | Consultation Report ---
DATE OF CONSULTATION: 08/01/2018 INDICATIONS: History of diastolic heart failure, worsening lower extremity edema. HISTORY OF PRESENT ILLNESS: The patient is an 78-year-old male. His past medical history is notable for: 1. Longstanding hypertension with hypertensive heart disease. 2. Chronic diastolic heart dysfunction with diastolic heart failure class III. 3. Remote coronary atherosclerosis by cardiac catheterization in 1997. 4. Hyperlipidemia with poor statin tolerance. 5. Type 2 diabetes mellitus. 6. Chronic back pain with narcotic dependence. 7. Suspected sleep apnea, hypoventilation syndrome. The patient was referred for admission after increasing difficulties with weight gain, lower extremity edema and erythema, tender to palpation, increased titration of outpatient diuretics was poorly successful with patient having worsening edema and weight gain. He was referred for further ER evaluation and admission. On presentation, he was found to have elevated creatinine, lower extremity edema, possible cellulitis. He is begun on antibiotic therapies. Diuretics have been initially held. He is referred for ongoing cardiac management. The patient was seen and examined. He denies any chest pain or worsening shortness of breath, abdominal bloating and lower extremity edema, predominant complaint. Has been taking medications as prescribed, attempting to manage fluids and salt at home, only fair dietary restriction. Notes no bleeding difficulties. Notes no melena or hematochezia. Notes no dysuria or hematuria. Denies headache or visual changes. ALLERGIES: None. MEDICATIONS: Prior to hospitalization were recent addition of amoxicillin clavulanate, aspirin 81 mg per day, citalopram 20 mg p.o. q. day, cod liver tablet 1 tablet per day, esomeprazole 40 mg p.o. q. day, glipizide 10 mg b.i.d. plus 5 mg p.o. b.i.d., insulin, Krill oil, lisinopril 40 mg p.o. q. day, metolazone 2.5 mg 2 days per week, multivitamin per day, potassium chloride 10 mEq p.o. q. day, pravastatin 20 mg at bedtime, spironolactone 12.5 mg p.o. q. day, torsemide 60 mg p.o. q. day, and tamsulosin 2 capsules p.o. q. day. PAST SURGICAL HISTORY: Notable for left total hip arthroplasty, right inguinal herniorrhaphy, bilateral cataract extractions, prior prostate biopsy. FAMILY HISTORY: Not specifically notable for cardiac disease. SOCIAL HISTORY: The patient resides in [place], is a prior smoker but discontinued in 1991. The patient continues to chew tobacco. Drinks 1 shot of alcohol each morning. PHYSICAL EXAMINATION: GENERAL: The patient is an age-appropriate male currently denying acute distress other than lower extremity edema and back pain. VITAL SIGNS: Reveal heart rate of 83, blood pressure 153/73, O2 saturations are 90% on room air. HEENT: Normocephalic, atraumatic. Nares without discharge. Throat was clear. NECK: Without thyromegaly, lymphadenopathy. There is no distinct jugular venous distention at 30 degrees, though neck thick. LUNGS: Reveal mildly diminished breath sounds diffusely. There are no rhonchi, rale or wheeze. CARDIOVASCULAR: Reveals distant heart sounds but no audible murmur or rub. PMI is nondisplaced. ABDOMEN: Obese, soft with moderate distention and ventral hernia. EXTREMITIES: Reveal 2-3+ lower extremity edema to above the knees with erythema and induration. NEUROLOGIC: The patient is answering questions appropriately. LABORATORY DATA: White cell count 11.2, hemoglobin 12.6, hematocrit 36.2, platelet count is 243. Sodium is 132, potassium is 4.2, chloride 96, bicarbonate is 26, BUN is 56, creatinine is 1.95 with initial presenting creatinine of 2.0, glucose is 213, calcium level is 9.3. Troponin on presentation was nondetectable. Chest x-ray revealed bibasilar atelectasis, but no infiltrate, normal size cardiac silhouette. Abdominal ultrasound revealed hepatomegaly and hepatic steatosis. No ascites. Echocardiogram similar to prior outpatient testings demonstrates moderate left ventricular hypertrophy, small left cavity size and normal left ventricular systolic function, no wall motion abnormalities. Grade 2 diastolic dysfunction, no significant valvular disease. IMPRESSION: An 78-year-old male presents now with worsening lower extremity edema, multifactorial in etiology and history of chronic diastolic heart failure, edema has been poorly amenable to further increase in diuretics underlying cellulitis, superimposed on edema present currently. Laboratory studies reflect acute renal insufficiency likely diuretic induced. RECOMMENDATIONS: Agree with holding lisinopril. We will hold diuretics 24 hours. No signs or symptoms of acute left-sided heart failure. ABG will be ordered and oxygen supplementation placed. Will likely need IV diuretics during hospitalization. Will ask nephrology to aid in management.
[2018-08-02] MEDS: HEPARIN SOD 5,000 UNIT/0.5 ML VIAL SQ SCH ×3 (06:22→21:04)
[2018-08-02] MEDS: HYDROCODONE/ACETAMINOPHEN 10/325 TAB PO PRN ×2 (07:07→19:02)
[2018-08-02] MEDS: ASPIRIN 81 MG ECTAB PO SCH (07:08)
[2018-08-02] MEDS: DOXYCYCLINE HYCLATE 100 MG CAP PO SCH ×2 (07:08→21:10)
[2018-08-02] MEDS: CITALOPRAM 20 MG TAB PO SCH (07:08)
[2018-08-02] MEDS: PANTOprazole 40 MG TAB PO SCH (07:08)
--- NOTE | 2018-08-02 08:38 | Nephrology Consultation ---
Date of Consultation August 02, 2018 Assessment & Plan (1) Acute kidney injury: 2.1 on admission, improving to 1.7 today w/o any diuretics and by w/holding acei -baseline creatinine 1.4-1.6 -will resume torsemide 40 mg po daily, first dose today and ordered as such -admission urine sediment bland -recommend renal u/s and ordered it as baseline and OP renal f/u Present on Admission?: Yes (2) Chronic diastolic heart failure: -resumed torsemide as above -recommend <2 gm dailyNa diet, FR 1.5L daily -cont daily standing wts -f/u cardiology recs -continue to hold spironolactone >> ask cardiology if indicated in DHF Present on Admission?: Yes (3) Hypertension: acceptable control; meds as above Present on Admission?: Yes History of Present Illness Reason for Consultation: PARMJIT Requesting Physician: Dr Tilley Attending Physician: Lito Arguello MD History of Present Illness 78 y/o M whom I'm asked to see for PARMJIT. He as admitted on 07/31 for acute on chronic diastolic HF. HIs baseline creatinine is 1.4-1.6; does not see nephro >> he presented w/ creatinine 2.1, improving this am to 1.7. HPI includes DM2, HTN, chronic diastolic HF class 3 diastolic dysfunction, class 2 obesity, HL, chronic venous insufficiency, past prostate CA, chronic back pain on chronic narcotics, per cardiology notes presumed sleep apnea/obesity hypoventilation. His ACEI is on hold; he has not received any diuretics po or IV since admission. He is on RA and bp past 24 hrs have generally been controlled. He was 131.6 kg yesterday am and is today 129.7 kg on standing scales. Seen in cardiology clinic on 07/27 after 1 year hiatus >> started then on torsemide, metolazone as stated here; wt there was 137 kg. As an outpatient he takes torsemide 60 mg daily and M/F metolozone 2.5 mg; also 12.5 mg daily spironolactone; all held since admission, though he did have 0.5 mg IV bumex in ER. Allergies Allergy/AdvReac Type Severity Reaction Status Date / Time No Known Allergies Verified 07/31/18 23:07 Home Medications Home Medications Medication Instructions Recorded Confirmed Type amoxicillin-pot clavulanate 1 tab PO BID 07/31/18 07/31/18 History ascorbic acid (vitamin C) 500 mg PO DAILY 07/31/18 07/31/18 History aspirin 81 mg PO DAILY 07/31/18 07/31/18 History citalopram 20 mg PO DAILY 07/31/18 07/31/18 History cod liver oil 1 cap PO DAILY 07/31/18 07/31/18 History esomeprazole magnesium 40 mg PO DAILY 07/31/18 07/31/18 History glipizide 5 mg PO BIDM 07/31/18 07/31/18 History glipizide 10 mg PO BIDM 07/31/18 07/31/18 History guaifenesin 600 mg PO BID PRN 07/31/18 07/31/18 History hydrocodone-acetaminophen 1 tab PO TID PRN 07/31/18 07/31/18 History insulin glargine [Lantus Solostar 24 units SUBCUT HS 07/31/18 07/31/18 History U-100 Insulin] oqzkn-[id number]-jje-ktkgzo 1 cap PO DAILY 07/31/18 07/31/18 History [krill oil] lidocaine [Lidoderm] 1 patch TOPICAL DAILY 07/31/18 07/31/18 History lisinopril 40 mg PO DAILY 07/31/18 07/31/18 History metolazone 2.5 mg PO MOFR@0900 07/31/18 07/31/18 History multivitamin 1 cap PO DAILY 07/31/18 07/31/18 History omega 2-rzc-wej-fish oil 1 cap PO DAILY 07/31/18 07/31/18 History potassium chloride 10 meq PO DAILY 07/31/18 07/31/18 History pravastatin [Pravachol] 20 mg PO HS 07/31/18 07/31/18 History spironolactone 12.5 mg PO DAILY 07/31/18 07/31/18 History tamsulosin 2 cap PO DAILY@1800 07/31/18 07/31/18 History torsemide 60 mg PO DAILY 07/31/18 07/31/18 History Patient History Medical History Venous insufficiency (Chronic) Narcotic dependence (Chronic) Chronic back pain (Chronic) GERD (gastroesophageal reflux disease) (Chronic) Hyperlipidemia (Chronic) Type 2 diabetes mellitus (Chronic) Chronic diastolic heart failure (Chronic) Hypertension (Chronic) Prostate cancer (Resolved) "Prostate, adenocarcinoma, cristina 3 + 3, 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, cT1c, group I TREATMENT: Prostate seed implant - Cesium 131 - 06/30/2011 - monotherapy alone, Lupron for 6 months prior to implantation." Diaphragmatic hernia (Chronic) Diverticulitis (Resolved) Surgical History History of knee replacement (Resolved) History of hip replacement (Resolved) Status post hernia repair (Resolved) Family History Mother Stroke Social History Communication Ability: Effective Beliefs That Will Affect Care: None marital status: Current Living Situation: Alone current occupational status: retired Feels Safe at Home: Yes Safety Concerns: Feels Safe At This Time Smoking Status: Unknown if ever smoked Hx Alcohol Use: Yes Hx Substance Use: No Review of Systems Constitutional: + fatigue and + weakness; no fever and no body aches Eyes: no worsening vision Ear, Nose, Mouth, Throat: + dry mouth Respiratory: no dyspnea on exertion Cardiovascular: + dyspnea on exertion and + edema (10 days worsening edema prior to admission and better now but still present); no chest pain Gastrointestinal: no abdominal pain, no vomiting and no change in bowel habits Genitourinary (Male): no dysuria and no difficulty urinating Musculoskeletal: + back pain Integumentary: no non-healing lesions Neurologic: + gait abnormality and + tremor(s) Psychiatric: no behavioral changes Endocrine: + fatigue Hematologic / Lymphatic: no easy bleeding Physical Exam Vital Signs (Past 24 Hours): Last Vital Signs Temp 36.7 C 08/02/18 08:08 Pulse 66 08/02/18 08:08 Resp 16 08/02/18 08:08 BP 136/89 08/02/18 08:08 Pulse Ox 93 08/02/18 08:08 Constitutional: well developed, well nourished, + obese and comfortable occasional nonproductive cough in exam Eyes: EOM intact bilaterally ENMT: Ears: no external ear abnormality Nose: no external nose abnormality Mouth: + dry oral mucous membranes Neck: no nuchal rigidity Respiratory: normal respiratory effort Auscultation: + diminished lung sounds (markedly in BL post olsen) Cardiovascular: Rate/Rhythm: regular rate and regular rhythm Extremities: + edema (2+) Gastrointestinal (Abdomen): Inspection/Auscultation: normal bowel sounds Percussion/Palpation: abdomen soft; abdomen nontender and no ascites Musculoskeletal: Extremities: strength 5/5 throughout Skin: no rashes, warm and dry Neurologic: villegas, fluent speech, +RUE tremor Psychiatric: A+Ox3, euthymic affect Genitourinary: no stern Results & Data Laboratory Results Abnormal lab results 08/01/18 08/01/18 08/01/18 Range/Units 13:21 15:37 16:27 RBC (4.7-6.1) M/uL Hgb (14.0-18.0) g/dL Hct (42-52) % MPV (7.4-10.4) fL Immature Gran # (Auto) (0.00-0.02) K/uL Lee # (Auto) (0.11-0.59) K/uL ABG pO2 73 L (80-95) mm/Hg ABG HCO3 29 H (19-24) mmol/L ABG Base Excess 3.5 H (-9-1.8) mEq/L Sodium (136-145) mmol/L Chloride (98-107) mmol/L BUN (7-18) mg/dl Creatinine (0.6-1.4) mg/dl BUN/Creatinine Ratio (10-20) Glucose (70-99) mg/dl POC Glucose 213 H 210 H (70-99) 08/01/18 08/02/18 08/02/18 Range/Units 20:46 07:39 08:19 RBC 3.87 L (4.7-6.1) M/uL Hgb 12.4 L (14.0-18.0) g/dL Hct 36.8 L (42-52) % MPV 11.2 H (7.4-10.4) fL Immature Gran # (Auto) 0.07 H (0.00-0.02) K/uL Lee # (Auto) 0.74 H (0.11-0.59) K/uL ABG pO2 (80-95) mm/Hg ABG HCO3 (19-24) mmol/L ABG Base Excess (-9-1.8) mEq/L Sodium (136-145) mmol/L Chloride (98-107) mmol/L BUN (7-18) mg/dl Creatinine (0.6-1.4) mg/dl BUN/Creatinine Ratio (10-20) Glucose (70-99) mg/dl POC Glucose 259 H 211 H (70-99) 08/02/18 Range/Units 08:19 RBC (4.7-6.1) M/uL Hgb (14.0-18.0) g/dL Hct (42-52) % MPV (7.4-10.4) fL Immature Gran # (Auto) (0.00-0.02) K/uL Lee # (Auto) (0.11-0.59) K/uL ABG pO2 (80-95) mm/Hg ABG HCO3 (19-24) mmol/L ABG Base Excess (-9-1.8) mEq/L Sodium 132 L (136-145) mmol/L Chloride 97 L (98-107) mmol/L BUN 50 H (7-18) mg/dl Creatinine 1.69 H (0.6-1.4) mg/dl BUN/Creatinine Ratio 29.8 H (10-20) Glucose 235 H (70-99) mg/dl POC Glucose (70-99) Diagnostic Findings cxr 1. No definite acute cardiopulmonary. 2. Bibasilar opacities which favor atelectasis or prominent epicardial fat pad. abd u/s 1. No abdominal ascites is identified. 2. Hepatomegaly and severe hepatic steatosis.
[2018-08-02 08:52] LABS: Basophils # (auto) 0.04 K/uL (0-0.2); Basophils % (auto) 0.5 %; Eosinophils # (auto) 0.25 K/uL (0-0.5); Eosinophils % (auto) 2.9 %; Hematocrit (blood only) 36.8 % (42-52); Hemoglobin 12.4 g/dL (14.0-18.0); Immature Granulocytes # (auto) 0.07 K/uL (0.00-0.02); Immature Granulocytes % (auto) 0.8 %; Lymphocytes # (auto) 3.36 K/uL (1.2-3.4); Lymphocytes % (auto) 39.6 %; Mean Corpuscular Hgb Conc 33.7 g/dL (32-36); Mean Corpuscular Volume 95.1 fL (80-100); Mean Platelet Volume 11.2 fL (7.4-10.4); Monocytes # (auto) 0.74 K/uL (0.11-0.59); Monocytes % (auto) 8.7 %; Neutrophils # (auto) 4.02 K/uL (1.4-6.5); Neutrophils % (auto) 47.5 %; Platelet Count 233 K/uL (130-400); RDW Coefficient of Variation 12.1 % (11.5-14.5); RDW Standard Deviation 41.4 fL (36.4-46.3); Red Blood Count 3.87 M/uL (4.7-6.1); White Blood Count 8.48 K/uL (4.8-10.8)
[2018-08-02] MEDS: INSULIN ASPART 100 UNITS/ML 3 ML PEN SC SCH ×4 (08:54→21:08)
[2018-08-02] MEDS: LIDOCAINE 5% 1 PATCH TD SCH (09:16)
[2018-08-02 09:26] LABS: BUN Creatinine Ratio 29.8 (10-20); Calcium 9.4 mg/dl (8.5-10.1); Creatinine Clr Calc Pharmacy 48.5 ml/min; Est GFR (African American) 43.5; Est GFR (Non-African American) 37.5; Potassium 4.3 mmol/L (3.5-5.1)
[2018-08-02] MEDS: TORSEMIDE 20 MG TAB PO SCH (12:54)
--- NOTE | 2018-08-02 18:11 | Hospitalist Progress Note ---
Date of Service August 02, 2018 Assessment & Plan (1) Heart failure, diastolic, with acute decompensation: Patient is an 78 yr male with H/O DM II, chronic diastolic heart failure, hypertension, hyperlipidemia, prostate cancer presents with B/L LE swelling and redness associated with shortness of breath. 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 Baseline Cr mid-1s Hold lisinopril Check renal USD Appreciate Nephrology Input Monitor renal function (3) Type 2 diabetes mellitus: Last A1C:8.7 Hold home agents Continue ISS, lantus (4) Hypertension: Stable continue current medications (5) Bronchitis: Resolving Continue doxy (6) Chronic back pain: Continue home dose hydrocodone (7) GERD (gastroesophageal reflux disease): Continue PPI (8) Mood disorder: Continue Celexa Code status: FULL PCP: Dalia Cruz Patient is an 78 yr male with H/O DM II, chronic diastolic heart failure, hypertension, hyperlipidemia, prostate cancer presents with B/L LE swelling and redness associated with shortness of breath. Patient is seen and examined at bedside States leg swelling is improving Less Cough, SOB today Denies chest pain, dizziness, nausea No other complaints Physical Exam Vital Signs (Past 24 Hours): Last Vital Signs Temp 36.7 C 08/02/18 14:49 Pulse 50 L 08/02/18 14:49 Resp 18 08/02/18 14:49 BP 132/76 08/02/18 14:49 Pulse Ox 93 08/02/18 14:49 Physical Exam: Physical Exam: Vitals signs as noted above General Appearance:Obese, no apparent distress Head: normocephalic, Atraumatic Eyes: normal inspection, EOMI Neck: supple, Trachea midline Respiratory/Chest: Decreased breath sounds, CTA Cardiovascular: S1, S2, No murmur Abdomen/GI:Soft, Non tender, Bowel sounds present Extremities/Musculoskelatal:normal inspection, B/L LE edema, Neurologic/Psych:AAOX3, grossly no focal neurological deficits Skin: normal color, warm Results & Data Laboratory Results Short CBC 08/02/18 Range/Units 08:19 WBC 8.48 (4.8-10.8) K/uL Hgb 12.4 L (14.0-18.0) g/dL Hct 36.8 L (42-52) % Plt Count 233 (130-400) K/uL BMP 08/02/18 08:19 Sodium 132 L Potassium 4.3 Chloride 97 L Carbon Dioxide 27 BUN 50 H Creatinine 1.69 H Glucose 235 H Calcium 9.4
--- NOTE | 2018-08-02 18:48 | Ultrasound Report ---
US renal/blad retro comp CLINICAL HISTORY: 78 years-old Male presenting with PARMJIT. TECHNIQUE: Real-time grayscale and limited color Doppler ultrasound imaging of the kidneys and bladde r was performed. COMPARISON: 08/01/[address] of the abdomen and pelvis from 02/05/2016. FINDINGS: Right kidney: Normal echogenicity of renal parenchyma. Right kidney measures 13.2 cm. No hydronephros is. Hyperechogenic foci measuring up to 5 mm, nonspecific and possibly calculi or prominent renal sin us fat. Left kidney: Normal echogenicity of renal parenchyma. Left kidney measures 12.3 cm. No hydronephrosis . No convincing evidence of calculus or mass. Bladder: Normal. Bilateral ureteral jets present. Other: None. IMPRESSION: 1. Questionable nonobstructive right renal calculi. No hydronephrosis. Electronically signed by: Elio Vegas M.D. 08/02/2018 6:46 PM
[2018-08-02] MEDS: TAMSULOSIN HCL 0.4 MG CAP PO SCH (19:03)
--- NOTE | 2018-08-02 19:28 | Cardiology Progress Note ---
Date of Service August 02, 2018 Assessment & Plan (1) Edema, peripheral: Patient slightly improved though little done so far other than a single dose of torsemide. Will follow renal function agree with discontinue spironolactone which is being used to limit potassium supplements We will follow patient in hospital (2) Heart failure, diastolic, with acute decompensation: (3) Acute kidney injury: Subjective Patient seen and examined, chart medications laboratory studies reviewed. Looks and feels improved though continues to have lower extremity edema. Back pain is controlled denies chest pains or discomfort notes no tachypalpitations Appreciate nephrology input Physical Exam Vital Signs (Past 24 Hours): Last Vital Signs Temp 36.7 C 08/02/18 14:49 Pulse 50 L 08/02/18 14:49 Resp 18 08/02/18 14:49 BP 132/76 08/02/18 14:49 Pulse Ox 93 08/02/18 14:49 Constitutional: WD/WN, vitals as above Eyes: PERRL, conjunctivae normal, anicteric sclerae Neck: trachea midline, no thyromegaly Respiratory: Auscultation: + diminished lung sounds (But clear) Cardiovascular: Rate/Rhythm: regular rate and regular rhythm Heart Sounds: normal S1, normal S2 and + murmur (Grade 1/6 systolic) Extremities: + edema (2+ bilateral lower extremity edema) Gastrointestinal (Abdomen): normal bowel sounds, soft, nontender, no hepatosplenomegaly Percussion/Palpation: + abdomen firm Results & Data Laboratory Results Laboratory Results - last 24 hr 08/01/18 08/02/18 08/02/18 20:46 07:39 08:19 WBC 8.48 RBC 3.87 L Hgb 12.4 L Hct 36.8 L MCV 95.1 MCH 32.0 MCHC 33.7 RDW Std Deviation 41.4 RDW Coeff of [place] 12.1 Plt Count 233 MPV 11.2 H Immature Gran % (Auto) 0.8 Neut % (Auto) 47.5 Lymph % (Auto) 39.6 [place] % (Auto) 8.7 Eos % (Auto) 2.9 Baso % (Auto) 0.5 Immature Gran # (Auto) 0.07 H Neut # (Auto) 4.02 Lymph # (Auto) 3.36 [place] # (Auto) 0.74 H Eos # (Auto) 0.25 Baso # (Auto) 0.04 Sodium Potassium Chloride Carbon Dioxide Anion Gap BUN Creatinine Est Cr Clr Drug Dosing Est GFR ( Amer) Est GFR (Non-Af Amer) BUN/Creatinine Ratio Glucose POC Glucose 259 H 211 H Calcium Magnesium 08/02/18 08/02/18 08/02/18 08:19 11:32 16:37 WBC RBC Hgb Hct MCV MCH MCHC RDW Std Deviation RDW Coeff of [place] Plt Count MPV Immature Gran % (Auto) Neut % (Auto) Lymph % (Auto) [place] % (Auto) Eos % (Auto) Baso % (Auto) Immature Gran # (Auto) Neut # (Auto) Lymph # (Auto) [place] # (Auto) Eos # (Auto) Baso # (Auto) Sodium 132 L Potassium 4.3 Chloride 97 L Carbon Dioxide 27 Anion Gap 8.0 BUN 50 H Creatinine 1.69 H Est Cr Clr Drug Dosing 48.5 Est GFR ( Amer) 43.5 Est GFR (Non-Af Amer) 37.5 BUN/Creatinine Ratio 29.8 H Glucose 235 H POC Glucose 242 H 221 H Calcium 9.4 Magnesium 2.0
[2018-08-02 19:50] VITALS: O2SAT 94
[2018-08-02] MEDS ORDERED: PRAVASTATIN SOD 20 MG TAB PO SCH (21:00)
[2018-08-02] MEDS ORDERED: INSULIN GLARGINE SOLOSTAR 100 UNITS/ML 3 ML PEN SQ SCH (21:00)
[2018-08-03] MEDS: HEPARIN SOD 5,000 UNIT/0.5 ML VIAL SQ SCH ×2 (05:50→15:18)
[2018-08-03 07:17] VITALS: PULSE 70; TEMP 98.1
[2018-08-03] MEDS: CITALOPRAM 20 MG TAB PO SCH (08:28)
[2018-08-03] MEDS: DOXYCYCLINE HYCLATE 100 MG CAP PO SCH (08:28)
[2018-08-03] MEDS: TORSEMIDE 20 MG TAB PO SCH (08:28)
[2018-08-03] MEDS: PANTOprazole 40 MG TAB PO SCH (08:28)
[2018-08-03] MEDS: ASPIRIN 81 MG ECTAB PO SCH (08:29)
[2018-08-03] MEDS: INSULIN ASPART 100 UNITS/ML 3 ML PEN SC SCH ×2 (08:30→12:36)
[2018-08-03] MEDS: HYDROCODONE/ACETAMINOPHEN 10/325 TAB PO PRN (08:35)
--- NOTE | 2018-08-03 08:39 | Nephrology Progress Note ---
Date of Service August 03, 2018 Assessment & Plan (1) Acute kidney injury: 2.1 on admission, improving to 1.7 today w/o any diuretics and by w/holding acei -baseline creatinine 1.4-1.6 -will resume torsemide 40 mg po daily, first dose today and ordered as such -admission urine sediment bland -recommend renal u/s and ordered it as baseline and OP renal f/u (2) Chronic diastolic heart failure: -resumed torsemide as above -recommend <2 gm dailyNa diet, FR 1.5L daily -cont daily standing wts -f/u cardiology recs -continue to hold spironolactone >> ask cardiology if indicated in DHF (3) Hypertension: acceptable control; meds as above Physical Exam Vital Signs (Past 24 Hours): Last Vital Signs Temp 36.7 C 08/03/18 07:16 Pulse 70 08/03/18 07:16 Resp 18 08/03/18 07:16 BP 154/74 H 08/03/18 07:16 Pulse Ox 94 08/03/18 07:16 Constitutional: well developed, well nourished, + obese and comfortable Eyes: EOM intact bilaterally ENMT: Ears: no external ear abnormality Nose: no external nose abnormality Mouth: + dry oral mucous membranes Neck: no nuchal rigidity Respiratory: normal respiratory effort Auscultation: + diminished lung sounds (markedly in BL post olsen) Cardiovascular: Rate/Rhythm: regular rate and regular rhythm Extremities: + edema (2+) Gastrointestinal (Abdomen): Inspection/Auscultation: normal bowel sounds Percussion/Palpation: abdomen soft; abdomen nontender and no ascites Musculoskeletal: Extremities: strength 5/5 throughout Skin: no rashes, warm and dry Psychiatric: A+Ox3, euthymic affect
[2018-08-03] MEDS: LIDOCAINE 5% 1 PATCH TD SCH (08:41)
[2018-08-03 08:44] LABS: BUN Creatinine Ratio 26.8 (10-20); Calcium 9.3 mg/dl (8.5-10.1); Creatinine Clr Calc Pharmacy 47.4 ml/min; Est GFR (African American) 42.6; Est GFR (Non-African American) 36.7; Potassium 4.2 mmol/L (3.5-5.1)
--- NOTE | 2018-08-03 12:49 | Hospitalist Progress Note ---
Date of Service August 03, 2018 Assessment & Plan (1) Heart failure, diastolic, with acute decompensation: Patient is an 78 yr male with H/O DM II, chronic diastolic heart failure, hypertension, hyperlipidemia, prostate cancer presents with B/L LE swelling and redness associated with shortness of breath. 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 No hydronephrosis. Appreciate Nephrology Input Monitor renal function Cr:1.72 today (3) Type 2 diabetes mellitus: Last A1C:8.7 Hold home agents Continue ISS, lantus (4) Hypertension: Stable continue current medications (5) Bronchitis: Resolving Continue doxy (6) Chronic back pain: Continue home dose hydrocodone (7) GERD (gastroesophageal reflux disease): Continue PPI (8) Mood disorder: Continue Celexa Code status: FULL PCP: Dalia Cruz Patient is an 78 yr male with H/O DM II, chronic diastolic heart failure, hypertension, hyperlipidemia, prostate cancer presents with B/L LE swelling and redness associated with shortness of breath. Patient is seen and examined at bedside States feeling much better today leg swelling continues to improve Less Cough Denies chest pain, SOB, dizziness, nausea No other complaints Discussed with Nephrology today Physical Exam Vital Signs (Past 24 Hours): Last Vital Signs Temp 36.7 C 08/03/18 07:16 Pulse 70 08/03/18 07:16 Resp 18 08/03/18 07:16 BP 154/74 H 08/03/18 07:16 Pulse Ox 94 08/03/18 07:16 Physical Exam: Physical Exam: Vitals signs as noted above General Appearance:Obese, no apparent distress Head: normocephalic, Atraumatic Eyes: normal inspection, EOMI Neck: supple, Trachea midline Respiratory/Chest: Decreased breath sounds, CTA Cardiovascular: S1, S2, No murmur Abdomen/GI:Soft, Non tender, Bowel sounds present Extremities/Musculoskelatal:normal inspection, B/L LE edema, Neurologic/Psych:AAOX3, grossly no focal neurological deficits Skin: normal color, warm Results & Data Laboratory Results [facility] 08/03/18 07:48 Sodium 136 Potassium 4.2 Chloride 99 Carbon Dioxide 31 BUN 46 H Creatinine 1.72 H Glucose 178 H Calcium 9.3 Diagnostic Findings Renal USD: Questionable nonobstructive right renal calculi. No hydronephrosis.
--- NOTE | 2018-08-03 13:06 | Discharge Summary ---
Date of Service August 03, 2018 Admission HPI Per Admitting Provider This is an 78-year-old male with a past medical history of chronic diastolic heart failure, DM II, HTN, HLD, venous insufficiency, chronic low back pain and other medical problems listed below who presents with worsening bilateral lower extremity swelling x 2 weeks. Patient has seen Dr. Tilley and Fredis Pink PA-C in clinic over the past few weeks with diuretic medication adjustments and attempt to decrease volume overload. On July 27, patient was instructed to discontinue Lasix and to start torsemide 60 mg daily as well as taking 2.5 mg metolazone in the morning on Mondays and Fridays. Patient continues to note worsening swelling to lower extremities with some blistering and weeping. Legs have become red and are painful. Also notes abdominal distention. Experiences orthopnea but but denies shortness of breath as long as he is seated upright. No lightheadedness, near syncope, chest pain, palpitations or wheezing. Was also started on course of Augmentin for bronchitis, for which he has completed 5 days of antibiotics. Most recent echo on record is from December 2015 that shows preserved EF of 65-69% and mild tricuspid regurgitation. Has been trying to watch his diet. Denies fever, chills, headache, nausea, vomiting, abdominal pain, dysuria, diarrhea or constipation. Admission Exam Per Admitting Provider General Appearance: WD/WN, no apparent distress, obese Head: normocephalic, atraumatic Eyes: normal inspection, PERRL, EOMI ENT: hearing grossly normal, pharynx normal (moist mucous membranes) Neck: supple, no JVD, no adenopathy Respiratory/Chest: lungs clear to auscultation. No wheezes, rales or rhonci. No respiratory distress or accessory muscle use Cardiovascular: regular rate, rhythm, no murmur, normal peripheral pulses, 2+ pitting edema of bilateral lower extremity Abdomen/GI: normal bowel sounds, distended, firm, non-tender to palpation Extremities/Musculoskelatal: normal inspection, no calf tenderness, normal capillary refill Neurologic/Psych: alert, normal mood/affect, oriented x 3 Skin: normal color, warm/dry. BLE with hyperpigmentation and erythema, areas of closed blisters on both extremities Principal Diagnosis Discharge Information Discharge Diagnosis Acute on chronic diastolic heart failure PARMJIT Bronchitis Discharge Goals Decrease discomfort,Improve disease control, Improve function Discharge Activity Limitations Resume your previous activity Discharge Data Allergies Allergy/AdvReac Type Severity Reaction Status Date / Time No Known Allergies Verified 07/31/18 23:07 Consultations 07/31/18 20:52 ED Decision to Admit Stat 08/01/18 00:43 Consult Cardiology Routine 08/01/18 16:50 Consult Nephrology Routine Procedures Performed Renal USD: Questionable nonobstructive right renal calculi. No hydronephrosis. ABD USD: 1. No abdominal ascites is identified. 2. Hepatomegaly and severe hepatic steatosis. CXR: 1. No definite acute cardiopulmonary. 2. Bibasilar opacities which favor atelectasis or prominent epicardial fat pad. Ordered Studies 08/01/18 00:43 US abdomen limited Urgent 08/02/18 14:40 US renal/blad retro comp Routine Hospital Course (1) Heart failure, diastolic, with acute decompensation: Patient is an 78 yr male with H/O DM II, chronic diastolic heart failure, hypertension, hyperlipidemia, prostate cancer presents with B/L LE swelling and redness associated with shortness of breath. 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 No hydronephrosis. Appreciate Nephrology Input Monitor renal function Cr:1.72 today (3) Type 2 diabetes mellitus: Last A1C:8.7 Hold home agents Continue ISS, lantus (4) Hypertension: Stable continue current medications (5) Bronchitis: Resolving Continue doxy (6) Chronic back pain: Continue home dose hydrocodone (7) GERD (gastroesophageal reflux disease): Continue PPI (8) Mood disorder: Continue Celexa Code status: FULL PCP: Dalia Total Time Total Time Spent Total Time Spent (In Minutes): 43 minutes Total Time Includes: Examination of the Patient, Discharge Planning, Medication Reconciliation, Communication With Other Providers and Other Discharge Plan Discharge Items Patient Disposition: Home - Home Health Services Reason For Visit: SOB, CELLULITIS Discharge Diagnosis: Acute on chronic diastolic heart failure PARMJIT Bronchitis Discharge Goals: Decrease discomfort, Improve disease control and Improve function Activity: Resume your previous activity Exercise/Sports: Gradually increase as tolerated Non-emergency contact: Primary Care Provider, Housekeeping Cleaner and Internal Medicine Specialist Call non-emergency contact if: you have any medication questions, your symptoms worsen, your pain is not controlled, your pain is worsening, your pain is unusual for you, your pain is concerning for you, you have a fever and your temperature is above 100.5 Follow-up/Referrals: PCP,NO [Primary Care Provider] - Diet: Carb Consistent or DM2, Heart Healthy and Low Sodium (2gm) Addtl Provider Instructions: Follow up with on 08/07/18 at 11:00Am for Primary Care Follow up with your Housekeeping Cleaner Fredis Pink PA-C on 08/04/18 at 9:45AM Follow up with your Internal Medicine Specialist in 2 months Seek immediate medical attention if your symptoms reoccur or worsen Complete the antibiotic course as prescribed Call your Primary Care doctor if any of the following symptoms or problems start or get worse: * Shortness of breath or difficulty breathing * Wake up at night short of breath * Chest pain * Cough * Swelling of your hands, feet, or legs * More fatigued or tired with your normal activity * Palpitations - sudden fast heart beats WEIGHT * Weigh yourself every morning after using the bathroom. * Use the same scale. * Wear the same amount of clothing. * Write your weight down on a chart. * Call your Primary Care doctor if you gain more than 2-3 pounds in 1-2 days. MEDICATIONS * Use this discharge instruction sheet for medication instructions. * Take your medications at the time your doctor ordered. * Do not skip a dose of your medicines. * If you miss a dose of medicine, take it as soon as possible, but DO NOT DOUBLE A DOSE. * Read your medicine information when you get home. * Know all of the side effects of your medicine. If in doubt, ask your pharmacist * Call your Primary Care doctor's office if you have any side effects. * Be sure all of your doctors know what medicine and herbs you take (including cold, flu, and herbal medicine). Take the following with you to your follow-up doctor appointments: * Weight Chart * Medication List * List of questions Do not drink excessive alcohol, beer or wine. Prescriptions: New doxycycline hyclate 100 mg Capsule 100 mg PO BID 5 Days Qty: 10 RF: 0 Continued cod liver oil Capsule 1 cap PO DAILY RF: 0 glipizide 10 mg tablet 10 mg PO BIDM RF: 0 hydrocodone-acetaminophen 10-325 mg tablet 1 tab PO TID PRN (Reason: Pain) RF: 0 aspirin 81 mg Tablet,Delayed Release (Dr/Ec) 81 mg PO DAILY RF: 0 spironolactone 25 mg tablet 12.5 mg PO DAILY RF: 0 citalopram 20 mg tablet 20 mg PO DAILY RF: 0 tamsulosin 0.4 mg capsule 2 cap PO DAILY@1800 RF: 0 esomeprazole magnesium 40 mg capsule,delayed release(DR/EC) 40 mg PO DAILY RF: 0 lidocaine [Lidoderm] 5 % Adhesive Patch,Medicated 1 patch TOPICAL DAILY RF: 0 pravastatin [Pravachol] 20 mg Tablet 20 mg PO HS RF: 0 multivitamin Capsule 1 cap PO DAILY RF: 0 glipizide 5 mg tablet 5 mg PO BIDM RF: 0 potassium chloride 10 mEq tablet,ER particles/crystals 10 meq PO DAILY RF: 0 Lantus Solostar U-100 Insulin 100 unit/mL (3 mL) insulin pen 24 units subcut HS RF: 0 omega 5-[id number]-[id number]-fish oil 1,000 mg (120 mg-180 mg) Capsule 1 cap PO DAILY RF: 0 [id number] [krill oil] 355-49-09-50 mg Capsule 1 cap PO DAILY RF: 0 guaifenesin 600 mg Tablet Extended Release 12hr 600 mg PO BID PRN (Reason: Congestion) RF: 0 ascorbic acid (vitamin C) 500 mg Capsule 500 mg PO DAILY RF: 0 Changed torsemide 20 mg tablet 40 mg PO DAILY Qty: 0 RF: 0 Discontinued metolazone 2.5 mg tablet 2.5 mg PO MOFR@0900 RF: 0 lisinopril 40 mg tablet 40 mg PO DAILY RF: 0 amoxicillin-pot clavulanate 875-125 mg tablet 1 tab PO BID RF: 0 Stand-Alone Forms: [facility] Discharge Orders: Discharge Order (Routine); Ordered 08/03/18 Ordered By: Lito Arguello Admission Data Admit Date/Time: 07/31/18 23:53 Attending Provider: Lito Arguello Admit Provider: Ken Gaitan Primary Care Provider: PCP,CLARA Other Providers: Ken Gaitan ; Pasquale Cross ; Georgia Carbajal ; Reid Guillory Service: Telemetry Medical Other Interventions: Discharge Summary Assessment (RN) Last Done: 08/03/18 13:56 Pending Studies at Discharge: No DC Date/Time DO NOT enter until pt leaves facility: 08/03/18 15:50
[2018-08-03 13:58] VITALS: BP 102/66
== END 2018-08-03 15:50 | disposition home or self-care (01) | DRG 291 ==
LOC: ED 17:37 → 2W 23:53 → SUATTDRO 23:53 → 2W 08-01 00:18

== ENCOUNTER 2020-07-05 21:22 | Inpatient (IN) ==
--- OUTSIDE RECORDS SUMMARY | 2020-07-05 21:25 | External Medical Summary | Continuity of Care Document ---
:1940 Author Name Sayda Silva Address Unavailable Unavailable , Care Team Providers Name Role Phone Cuco Silva Unavailable [email or web address] Megan CHRISTOPHER Unavailable Unavailable Unavailable Unavailable Unavailable Problems Routine history and physical examination of adult (V70.0) (Z 00.00) Benign prostatic hypertrophy with urinary obstruction (600.0 1) (N40.1) Prostate cancer (185) (C61) Arthritis (716.90) (M19.90) Adenocarcinoma of prostate (185) (C61) Nocturia (788.43) (R35.1) Hypertension (401.9) (I10) Hypercholesterolemia (272.0) (E78.00) Allergies and Adverse Reactions No Known Drug Allergies (Allergy) Medications NexIUM CPDR Refills: 0 CeleXA TABS Refills: 0 Lipitor TABS Refills: 0 Flomax 0.4 MG Oral Capsule Refills: 0 Magnesium TABS Refills: 0 Krill Oil CAPS Refills: 0 Aspirin TABS Refills: 0 Nattokinase CAPS Refills: 0 Pycnogenol TABS Refills: 0 Procedures History of Insertion Of Tiera Capsules For Clinical Status: Completed Brachytherapy History of Total Hip Replacement Status: Completed History of Total Knee Arthroplasty Statu s: Completed History of Knee Surgery Status: Complete d Immunizations Immunizations not documented Family History Unknown Family Member Family history of Nephrolithiasis Status: Active Commen ts: Family History Family history of Hypertension (V17.49) Status: Active Comments: Family History Family history of Heart Disease (V17.49) Status: Active Comments: Family History Family history of Diabetes Mellitus (V18.0) Status: Active Comments: Family History Family history of Colon Cancer (V16.0) Status: Active C omments: Family History Family history of Lung Cancer (V16.1) Status: Active Co mments: Family History Social History - Smoking Status Ex-smoker Plan of Treatment Planned Observations Planned Goals not documented Results No Known Results Results not documented
--- NOTE | 2020-07-05 21:46 | Emergency Department Note ---
Impression & Plan Weakness, Fall, Headache, Acute shoulder pain ED Provider Note NAME: RALPH HAQUE AGE: 80 SEX: M : 1940 ARRIVES VIA: Ambulance INFORMANT: Patient, ED PROVIDER(S): Ld Braga MD Chief Complaint: Head and neck pain HPI: Patient does present with concern for right-sided head neck pain. The patient states that he had a fall on Tuesday. The patient initially felt okay but he has had worsening pain he describes it from the neck into the right side of the head. The patient has tried taking [id number]-rmu-[id number] medications but without relief at home. The patient denies fevers chills chest pains or shortness of breath. The patient has had associated right-sided shoulder pain as he did fall on the right side. The patient denies taking blood thinning medications but does take a baby aspirin. The patient does live by himself and his dog. Patient denies any numbness tingling or focal weakness. The patient does have some baseline ambulatory dysfunction which she states is not new for him. Patient states his appetite has been appropriate. ROS: See HPI for pertinent positives and negatives. A total of 10 systems were reviewed and otherwise negative. Past medical history: See below Surgical history: See below Social history: See below Physical Exam: GENERAL: Wearing a mask. NAD, non-toxic. EYE EXAM: Normal conjunctiva. PERRL, no anisocoria and EOM's grossly intact w/o pain. NECK: Supple, no nuchal rigidity, no adenopathy, non-tender. No signs of meningismus. LUNGS: Clear to auscultation. Normal chest wall mechanics. HEART: NSR, no MRG. ABDOMEN: Abdomen soft, non-tender, normo-active bowel sounds, no masses, no rebound or guarding. BACK: No CVA TTP. SKIN: No rashes and no bruising. UPPER EXTREMITIES: Upper extremities are grossly normal. No TTP. LOWER EXTREMITIES: Grossly normal, no edema. No TTP. NEURO EXAM: A&O x3, cranial nerves II-XII grossly intact, normal speech, moves all 4 extremities on command w/o issue. Differential diagnoses: Infection, dehydration, metabolic abnormality, hypo/hyperglycemia, electrolyte disturbance, anemia, hypoxia, cardiac sources, intracerebral event, toxicologic, neurologic, as well as other pathologies. Course: Patient was seen and evaluated the bedside. Full history physical exam was performed. EKG: Sinus with first-degree AV block, rate of 70, prolonged NM, normal QRS, normal axis. Imaging Studies: Radiology results as stated below per my review in the radiologist's interpretation: CT SCAN OF THE CERVICAL SPINE CLINICAL HISTORY: Trauma. Fall. COMPARISON STUDY: No priors. TECHNIQUE: CT scan of the cervical spine is performed from the skull base to the upper thoracic spine. Images are reviewed in the axial, sagittal, and coronal planes. IV contrast was not administered for this examination. A dose lowering technique was utilized adhering to the principles of ALARA. CT DOSE: 1133.74 mGy.cm FINDINGS: Skeletal structures: The skeletal structures are osteopenic. There is no evidence of fracture or subluxation involving the cervical spine. Vertebral body height and alignment are maintained. There is straightening of the cervical lordosis. Anterior osteophytes are seen throughout. The odontoid process and lateral masses are intact. The atlantoaxial articulation is preserved noting advanced productive degenerative change. The spinous processes appear intact. There is moderate to advanced multilevel cervical spondylosis. Uncovertebral and facet arthropathy contribute to neural foraminal narrowing at most levels. Intervertebral discs: There is moderate disc space narrowing at C3-C4. Advanced disc space narrowing is seen at C5-C6 and C6-C7. Milder disc space narrowing is seen at the remaining cervical levels. Central canal: Large posterior disc osteophyte complexes are seen at C3-C4, C5- C6, and C6-C7. This likely contributes to multilevel acquired compromise of the central canal. Soft tissues: The prevertebral and paraspinous soft tissues are within normal limits. The left lobe of the thyroid gland is diminutive versus surgically absent. There is atherosclerotic calcification of the carotid bulbs. Calvarium: The visualized calvarium at the skull base appears intact. Brain parenchyma: Partially visualized brain parenchyma at the skull base is within normal limits. Sinuses and mastoids: The visualized paranasal sinuses are clear. There are left larger than right mastoid effusions. Lung apices: Clear as visualized. IMPRESSION: 1. There is no evidence of fracture or subluxation involving the cervical spine. 2. Osteopenia and spondylotic change as above. ACT 112: Negative or not required by law. Electronically signed by: Miguel Bloom M.D. 07/05/2020 11:12 PM Dictated: 07/05/202304Transcribed: 07/05/202304 SINGLE VIEW CHEST CLINICAL HISTORY: Fall. FINDINGS: 2 AP, portable, upright chest radiographs are compared to study dated 07/31/2018. The heart is enlarged noting atherosclerotic calcification of the thoracic aorta. The pulmonary vasculature is noncongested. There is bibasilar scarring/atelectasis. No airspace consolidation or large pleural effusion is identified. No pneumothorax is seen. The skeletal structures are osteopenic. The bony thorax is grossly intact. Degenerative change is noted in the shoulders and thoracic spine. IMPRESSION: Cardiomegaly with no acute cardiopulmonary abnormality. ACT 112: Negative or not required by law. Electronically signed by: Miguel Bloom M.D. 07/05/2020 11:32 PM Dictated: 07/05/202330Transcribed: 07/05/202330 CT SCAN OF THE FACIAL BONES WITHOUT IV CONTRAST CLINICAL HISTORY: Trauma. Fall. COMPARISON STUDY: CT of the brain performed concurrently on 07/05/2020. TECHNIQUE: High-resolution CT scan of the facial bones is performed. Images are reviewed in the axial, sagittal, and coronal planes. IV contrast was not administered for this examination. A dose lowering technique was utilized adhering to the principles of ALARA. FINDINGS: The skeletal structures are osteopenic. There is no evidence of facial bone fracture. The bony orbits are intact and the orbital contents are within normal limits noting bilateral ocular lens implants. The zygomatic arches, nasal bones, and pterygoid plates are preserved. The maxilla and mandible are intact. There are no layering blood products within the paranasal sinuses. Trace mucosal thickening is seen within the right maxillary antrum. The remaining paranasal sinuses are clear. There are left larger than right mastoid effusions. Cerumen is noted in the external auditory canals. The visualized calvarium and upper cervical spine are maintained. Partially imaged brain parenchyma is within normal limits noting age-related involutional change. The patient is edentulous. IMPRESSION: There is no evidence of facial bone fracture. ACT 112: Negative or not required by law. Electronically signed by: Miguel Bloom M.D. 07/05/2020 11:29 PM Dictated: 07/05/202324Transcribed: 07/05/202324 CT SCAN OF THE BRAIN WITHOUT IV CONTRAST CLINICAL HISTORY: Trauma. Fall. COMPARISON STUDY: No priors. TECHNIQUE: Unenhanced axial CT scan of the brain is performed from the vertex to the skull base. A dose lowering technique was utilized adhering to the principles of ALARA. FINDINGS: Brain parenchyma: There are age-related involutional changes noting mild subcortical and periventricular microangiopathic change. There is no hemorrhage, mass effect, or evidence of acute territorial ischemia by CT criteria. Barney- white matter differentiation is preserved. No extra-axial fluid collection is seen. Ventricles, sulci, cisterns: Prominent secondary to involutional change. Intracranial vasculature: There is atherosclerotic calcification of the cavernous carotid and vertebral arteries. Calvarium: The skeletal structures are osteopenic. There is no depressed calvarial fracture. Sinuses and mastoids: The visualized paranasal sinuses are clear. There are left larger than right mastoid effusions. Orbits: The bony orbits are grossly intact. There are bilateral ocular lens implants. IMPRESSION: There is no hemorrhage, mass effect, or evidence of acute territorial ischemia by CT criteria. ACT 112: Negative or not required by law. Electronically signed by: Miguel Bloom M.D. 07/05/2020 11:05 PM Dictated: 07/05/202301Transcribed: 07/05/202301 RIGHT SHOULDER 3 VIEWS CLINICAL HISTORY: Fall with right shoulder injury. FINDINGS: 3 views of the right shoulder are obtained. No prior studies are available for comparison at the time of dictation. The skeletal structures are osteopenic. There is no radiographic evidence of fracture or dislocation. Productive degenerative change is seen at the acromioclavicular joint. Arthritic change is also seen at the glenohumeral articulation. Degenerative sclerosis is noted in the greater tuberosity. The overlying soft tissues are normal as imaged. The visualized right lung parenchyma appears clear. The heart is enlarged noting atherosclerotic calcification of the thoracic aorta. IMPRESSION: Osteopenia and degenerative change as above with no acute bony abnor mality identified. Electronically signed by: Miguel Bloom M.D. 07/05/2020 11:31 PM Dictated: 07/05/202328Transcribed: 07/05/202328 Cardiac monitoring: An order was placed for continuous cardiac monitoring. The monitor shows a rate of 82 with sinus rhythm. MDM: Patient was seen due to concern for right-sided head and neck pain. The patient did have blood work completed along with EKG CT of the head neck and face along with chest x-ray and right shoulder x-ray. No obvious concerning findings on imaging. Patient's EKG is nonischemic no obvious arrhythmia. Patient was attempted to be ambulatory but was unable to do so. Given the concern for weakness we did discuss possibility of rehab which patient is not interested at this time but believe the patient is a fall risk and safety risk as the patient does live by himself. I did speak the on-call hospitalist Dr. Schmidt and the patient was admitted to the [facility] service. Past Med/Surg History Medical History Chronic back pain Chronic diastolic heart failure Diaphragmatic hernia Diverticulitis GERD (gastroesophageal reflux disease) Hyperlipidemia Hypertension Narcotic dependence Prostate cancer "Prostate, adenocarcinoma, cristina 3 + 3, PSA 6.66, cT1c, group I TREATMENT: Prostate seed implant - Cesium 131 - 06/30/2011 - monotherapy alone, Lupron for 6 months prior to implantation." Type 2 diabetes mellitus Venous insufficiency Surgical History History of hip replacement History of knee replacement Status post hernia repair Family History Mother Stroke Social History Smoking Status: Former smoker Second Hand Exposure: No; Do You Dip or Chew Tobacco: Yes; Tobacco Cessation Education Requested by Patient: No Hx Alcohol Use: Yes (quit) Alcohol Intake Frequency Comment: history of daily use, recently quit Hx Substance Use: No Preferred Language: Greek Communication Ability: Effective 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 Beliefs That Will Affect Care: None marital status: Current Living Situation: Alone current occupational status: retired Other Information That Helps Us Care for You: No Feels Safe at Home: Yes Safety Concerns: Feels Safe At This Time Assistive Devices: Walker Allergies Allergies Allergy/AdvReac Type Severity Reaction Status Date / Time No Known Allergies Verified 07/05/20 23:35 Home Meds Home Medications Medication Instructions Recorded Confirmed Lantus Solostar U-100 Insulin 15 units SUBCUT BID 07/31/18 07/06/20 ascorbic acid (vitamin C) 500 mg PO DAILY 07/31/18 07/05/20 aspirin 81 mg PO DAILY 07/31/18 07/05/20 citalopram 20 mg PO DAILY 07/31/18 07/05/20 cod liver oil 1 cap PO DAILY 07/31/18 07/05/20 esomeprazole magnesium 40 mg PO DAILY 07/31/18 07/05/20 glipizide 5 mg PO BIDM 07/31/18 07/05/20 glipizide 10 mg PO BIDM 07/31/18 07/05/20 guaifenesin 600 mg PO BID PRN 07/31/18 07/05/20 hydrocodone-acetaminophen 1 tab PO TID PRN 07/31/18 07/05/20 czdbl-lusfj-[id number]-zlq-msh-cvllwb 1 cap PO DAILY 07/31/18 07/05/20 [krill oil] lidocaine [Lidoderm] 1 patch TOPICAL DAILY PRN 07/31/18 07/05/20 omega 6-qac-zmg-fish oil 1 cap PO DAILY 07/31/18 07/05/20 potassium chloride 10 meq PO DAILY 07/31/18 07/05/20 pravastatin [Pravachol] 20 mg PO HS 07/31/18 07/05/20 spironolactone 12.5 mg PO DAILY 07/31/18 07/05/20 tamsulosin 0.8 mg PO DAILY@1800 07/31/18 07/06/20 multivitamin 1 tab PO DAILY 07/05/20 07/05/20 Previous Rx's Medication Instructions Recorded torsemide 40 mg PO DAILY #0 tab 08/03/18 Results & Data (ED) Vital Signs Vital Signs - 24 hr 07/05/20 21:28 07/05/20 22:30 07/05/20 23:00 Temperature 37.2 C Temperature Source Oral Pulse Rate 71 68 70 Respiratory Rate 20 18 18 Respiratory Effort / Characteristics Non-Labored Spontaneous Respiratory Depth Normal Blood Pressure 183/94 H 160/91 H 185/88 H Blood Pressure Mean 123 114 120 Pulse Oximetry 90 96 95 Oxygen Delivery Method Room Air Room Air Sepsis New/Unexplained Change in Mental Status N/A Sepsis Action Taken by Nursing No Action Required 07/05/20 23:30 07/06/20 00:00 07/06/20 00:30 Temperature Temperature Source Pulse Rate 67 64 64 Respiratory Rate 16 18 20 Respiratory Effort / Characteristics Respiratory Depth Blood Pressure 162/90 H 180/85 H 154/90 H Blood Pressure Mean 114 116 111 Pulse Oximetry 95 93 95 Oxygen Delivery Method Sepsis New/Unexplained Change in Mental Status Sepsis Action Taken by Nursing 07/06/20 01:00 07/06/20 01:30 Temperature Temperature Source Pulse Rate 68 70 Respiratory Rate 16 16 Respiratory Effort / Characteristics Respiratory Depth Blood Pressure 130/85 161/84 H Blood Pressure Mean 100 109 Pulse Oximetry 93 95 Oxygen Delivery Method Sepsis New/Unexplained Change in Mental Status Sepsis Action Taken by Custodial Medications Current Medication List: was personally reviewed by me Laboratory Data Attestation: I reviewed the patient's lab results. Result diagrams: 07/06/20 05:50 07/06/20 05:50 Lab Results 07/05/20 07/05/20 07/06/20 Range/Units 21:40 21:40 00:30 WBC 12.12 H (4.8-10.8) K/uL RBC 4.15 L (4.7-6.1) M/uL Hgb 13.3 L (14.0-18.0) g/dL Hct 39.9 L (42-52) % MCV 96.1 (80-100) fL MCH 32.0 (25-34) pg MCHC 33.3 (32-36) g/dL RDW Std Deviation 44.6 (36.4-46.3) fL RDW Coeff of Faiza 12.8 (11.5-14.5) % Plt Count 265 (130-400) K/uL MPV 11.4 H (7.4-10.4) fL Immature Gran % (Auto) 0.7 % Neut % (Auto) 68.0 % Lymph % (Auto) 20.3 % Hunt % (Auto) 10.0 % Eos % (Auto) 0.8 % Baso % (Auto) 0.2 % Neut # (Auto) 8.25 H (1.4-6.5) K/uL Lymph # (Auto) 2.46 (1.2-3.4) K/uL Hunt # (Auto) 1.21 H (0.11-0.59) K/uL Eos # (Auto) 0.10 (0-0.5) K/uL Baso # (Auto) 0.02 (0-0.2) K/uL Immature Gran # (Auto) 0.08 H (0.00-0.02) K/uL Sodium 134 L (136-145) mmol/L Potassium 4.2 (3.5-5.1) mmol/L Chloride 96 L (98-107) mmol/L Carbon Dioxide 29 (21-32) mmol/L Anion Gap 8.0 (3-11) BUN 34 H (7-18) mg/dl Creatinine 1.67 H (0.6-1.4) mg/dl Est Cr Clr Drug Dosing 48.3 ml/min Est GFR ( Amer) 43.5 Est GFR (Non-Af Amer) 37.5 BUN/Creatinine Ratio 20.5 H (10-20) Glucose 292 H (70-99) mg/dl Calcium 9.7 (8.5-10.1) mg/dl Magnesium 2.3 (1.8-2.4) mg/dl Total Bilirubin 1.0 (0.2-1) mg/dl Direct Bilirubin 0.3 H (0-0.2) mg/dl AST 53 H (15-37) U/L ALT 64 (12-78) U/L Alkaline Phosphatase 145 H (45-117) U/L Total Creatine Kinase 98 (39-308) U/L Total Protein 8.4 H (6.4-8.2) gm/dl Albumin 3.5 (3.4-5.0) gm/dl COVID-19 Eval Order Covid19 IDNow [facility] SARS-CoV-2, RNA, NAAT (NEGATIVE) 07/06/20 Range/Units 00:30 WBC (4.8-10.8) K/uL RBC (4.7-6.1) M/uL Hgb (14.0-18.0) g/dL Hct (42-52) % MCV (80-100) fL MCH (25-34) pg MCHC (32-36) g/dL RDW Std Deviation (36.4-46.3) fL RDW Coeff of Faiza (11.5-14.5) % Plt Count (130-400) K/uL MPV (7.4-10.4) fL Immature Gran % (Auto) % Neut % (Auto) % Lymph % (Auto) % Hunt % (Auto) % Eos % (Auto) % Baso % (Auto) % Neut # (Auto) (1.4-6.5) K/uL Lymph # (Auto) (1.2-3.4) K/uL Hunt # (Auto) (0.11-0.59) K/uL Eos # (Auto) (0-0.5) K/uL Baso # (Auto) (0-0.2) K/uL Immature Gran # (Auto) (0.00-0.02) K/uL Sodium (136-145) mmol/L Potassium (3.5-5.1) mmol/L Chloride (98-107) mmol/L Carbon Dioxide (21-32) mmol/L Anion Gap (3-11) BUN (7-18) mg/dl Creatinine (0.6-1.4) mg/dl Est Cr Clr Drug Dosing ml/min Est GFR ( Amer) Est GFR (Non-Af Amer) BUN/Creatinine Ratio (10-20) Glucose (70-99) mg/dl Calcium (8.5-10.1) mg/dl Magnesium (1.8-2.4) mg/dl Total Bilirubin (0.2-1) mg/dl Direct Bilirubin (0-0.2) mg/dl AST (15-37) U/L ALT (12-78) U/L Alkaline Phosphatase (45-117) U/L Total Creatine Kinase (39-308) U/L Total Protein (6.4-8.2) gm/dl Albumin (3.4-5.0) gm/dl COVID-19 Eval Order SARS-CoV-2, RNA, NAAT NEGATIVE (NEGATIVE) Administered Medications Hydrocodone Bitart/Acetaminophen (Hydrocodone/Acetaminophen 10/325 Tab) 1 tab PO TID PRN PRN Reason: Pain Stop: 07/20/20 02:37 Last Admin: 07/06/20 04:29 Dose: 1 tab Documented by: [id number] Aspirin (Aspirin 81 Mg Ectab) 81 mg PO DAILY VAISHALI Stop: 08/05/20 08:59 Last Admin: 07/06/20 07:42 Dose: 81 mg Documented by: [id number] Citalopram Hydrobromide (Citalopram 20 Mg Tab) 20 mg PO DAILY VAISHALI Stop: 08/05/20 08:59 Last Admin: 07/06/20 07:42 Dose: 20 mg Documented by: [id number] Heparin Sodium (Porcine) (Heparin Sod 5,000 Unit/0.5 Ml Vial) 5,000 units SQ Q8 VAISHALI Stop: 08/05/20 05:59 Last Admin: 07/06/20 12:15 Dose: 5,000 units Documented by: [id number] Admin: 07/06/20 05:41 Dose: 5,000 units Documented by: [id number] Sodium Chloride (Nss 1000ml) 1,000 mls @ 60 mls/hr IV .[id number] ONE Stop: 07/06/20 19:17 Last Admin: 07/06/20 03:01 Dose: 60 mls/hr Documented by: [id number] Insulin Aspart (Insulin Aspart 100 Units/Ml 3 Ml Pen) 0 units SC ACHS VAISHALI Stop: 08/05/20 02:37 Last Admin: 07/06/20 17:22 Dose: 2 units Documented by: [id number] Cosigned by: [id number] Admin: 07/06/20 12:15 Dose: 5 units Documented by: [id number] Cosigned by: [id number] Admin: 07/06/20 08:06 Dose: 1 units Documented by: [id number] Cosigned by: [id number] Admin: 07/06/20 03:02 Dose: 3 units Documented by: [id number] Cosigned by: [id number] Insulin Glargine (Insulin Glargine Solostar 100 Units/Ml 3 Ml Pen) 15 units SQ BID VAISHALI Stop: 08/05/20 08:59 Last Admin: 07/06/20 08:06 Dose: 15 units Documented by: [id number] Cosigned by: [id number] Multivitamins (Multivitamin Tab) 1 tab PO DAILY VAISHALI Stop: 08/05/20 08:59 Last Admin: 07/06/20 07:42 Dose: 1 tab Documented by: [id number] Pantoprazole Sodium (Pantoprazole 40 Mg Tab) 40 mg PO DAILY VAISHALI Stop: 08/05/20 08:59 Last Admin: 07/06/20 07:42 Dose: 40 mg Documented by: [id number] Tamsulosin HCl (Tamsulosin Hcl 0.4 Mg Cap) 0.8 mg PO DAILY@1800 VAISHALI Stop: 08/05/20 17:59 Last Admin: 07/06/20 17:29 Dose: 0.8 mg Documented by: [id number] Discontinued Medications Acetaminophen (Acetaminophen 500 Mg Tab) 1,000 mg PO NOW STA Stop: 07/05/20 21:59 Last Admin: 07/05/20 22:29 Dose: 1,000 mg Documented by: [id number] Cosigned by: [id number] Hydrocodone Bitart/Acetaminophen (Hydrocodone/Acetamophen 5/325mg Tab) 1 tab PO NOW STA Stop: 07/06/20 01:38 Last Admin: 07/06/20 01:55 Dose: 1 tab Documented by: [id number] Amlodipine Besylate (Amlodipine Besylate 5 Mg Tab) 2.5 mg PO NOW STA Stop: 07/06/20 01:39 Last Admin: 07/06/20 01:55 Dose: 2.5 mg Documented by: [id number] Insulin Glargine (Insulin Glargine Solostar 100 Units/Ml 3 Ml Pen) 15 units SC NOW STA Stop: 07/06/20 01:35 Last Admin: 07/06/20 01:55 Dose: 15 units Documented by: [id number] Cosigned by: [id number] Lidocaine (Lidocaine 5% 1 Patch) 1 patch TD NOW STA Stop: 07/05/20 23:43 Last Admin: 07/05/20 23:47 Dose: 1 patch Documented by: [id number] Cosigned by: [id number] Miscellaneous (Remove Lidoderm Patch) 1 ea N/A DAILY@2100 [facility] Stop: 08/05/20 20:59 Last Admin: 07/06/20 00:36 Dose: Not Given Documented by: [id number] Miscellaneous (Remove Lidoderm Patch) 1 ea N/A ONE ONE Stop: 07/06/20 10:01 Last Admin: 07/06/20 08:07 Dose: 1 ea Documented by: [id number] Morphine Sulfate (Morphine Sulfate 4 Mg/Ml 1 Ml Carp\\Vial) 4 mg IV NOW STA Stop: 07/05/20 21:59 Last Admin: 07/05/20 22:30 Dose: 4 mg Documented by: [id number] Cosigned by: [id number] Oxycodone HCl (Oxycodone Hcl Ir 5 Mg Tab (Immediate Release)) 5 mg PO NOW STA Stop: 07/05/20 23:43 Last Admin: 07/05/20 23:47 Dose: 5 mg Documented by: [id number] Cosigned by: [id number] Discharge Plan Visit Data Chief Complaint: Fall Stated Complaint: S/P FALL on TUE - RT. SHOULDER PAIN INTO BACK ED Provider: Ld Braga Discharge Problem: Weakness, Fall, Headache, Acute shoulder pain Patient Disposition: Admitted As Inpatient Discharge Instructions Interventions: ED Discharge Assessment Last Done: 07/06/20 02:06 Discharge Problem: Fall Qualifiers: Encounter type: initial encounter Qualified Code(s): W19.XXXA - Unspecified fall, initial encounter Headache Qualifiers: Headache type: post-traumatic Headache chronicity pattern: acute headache Intractability: not intractable Qualified Code(s): G44.319 - Acute post- traumatic headache, not intractable Acute shoulder pain Qualifiers: Laterality: right Qualified Code(s): M25.511 - Pain in right shoulder
[2020-07-05] MEDS ORDERED: MoRPHine SULFATE 4 MG/ML 1 ML CARP\\VIAL IV STA (21:58)
[2020-07-05] MEDS ORDERED: ACETAMINOPHEN 500 MG TAB PO STA (21:58)
[2020-07-05 22:04] LABS: Basophils # (auto) 0.02 K/uL (0-0.2); Basophils % (auto) 0.2 %; Eosinophils % (auto) 0.8 %; Hematocrit (blood only) 39.9 % (42-52); Hemoglobin 13.3 g/dL (14.0-18.0); Immature Granulocytes # (auto) 0.08 K/uL (0.00-0.02); Immature Granulocytes % (auto) 0.7 %; Lymphocytes # (auto) 2.46 K/uL (1.2-3.4); Lymphocytes % (auto) 20.3 %; Mean Corpuscular Hgb Conc 33.3 g/dL (32-36); Mean Corpuscular Volume 96.1 fL (80-100); Mean Platelet Volume 11.4 fL (7.4-10.4); Monocytes # (auto) 1.21 K/uL (0.11-0.59); Neutrophils # (auto) 8.25 K/uL (1.4-6.5); Platelet Count 265 K/uL (130-400); RDW Coefficient of Variation 12.8 % (11.5-14.5); RDW Standard Deviation 44.6 fL (36.4-46.3); Red Blood Count 4.15 M/uL (4.7-6.1); White Blood Count 12.12 K/uL (4.8-10.8)
[2020-07-05 22:11] LABS: BUN Creatinine Ratio 20.5 (10-20); Calcium 9.7 mg/dl (8.5-10.1); Creatinine Clr Calc Pharmacy 48.3 ml/min; Est GFR (African American) 43.5; Est GFR (Non-African American) 37.5; Potassium 4.2 mmol/L (3.5-5.1)
--- NOTE | 2020-07-05 23:06 | CT Scan Report ---
CT SCAN OF THE BRAIN WITHOUT IV CONTRAST CLINICAL HISTORY: Trauma. Fall. COMPARISON STUDY: No priors. TECHNIQUE: Unenhanced axial CT scan of the brain is performed from the vertex to the skull base. A do se lowering technique was utilized adhering to the principles of ALARA. FINDINGS: Brain parenchyma: There are age-related involutional changes noting mild subcortical and periventric ular microangiopathic change. There is no hemorrhage, mass effect, or evidence of acute territorial i schemia by CT criteria. Barney-white matter differentiation is preserved. No extra-axial fluid collecti on is seen. Ventricles, sulci, cisterns: Prominent secondary to involutional change. Intracranial vasculature: There is atherosclerotic calcification of the cavernous carotid and vertebr al arteries. Calvarium: The skeletal structures are osteopenic. There is no depressed calvarial fracture. Sinuses and mastoids: The visualized paranasal sinuses are clear. There are left larger than right ma stoid effusions. Orbits: The bony orbits are grossly intact. There are bilateral ocular lens implants. IMPRESSION: There is no hemorrhage, mass effect, or evidence of acute territorial ischemia by CT roccot to. ACT 112: Negative or not required by law. Electronically signed by: Miguel Bloom M.D. 07/05/2020 11:05 PM
--- NOTE | 2020-07-05 23:13 | CT Scan Report ---
CT SCAN OF THE CERVICAL SPINE CLINICAL HISTORY: Trauma. Fall. COMPARISON STUDY: No priors. TECHNIQUE: CT scan of the cervical spine is performed from the skull base to the upper thoracic spine . Images are reviewed in the axial, sagittal, and coronal planes. IV contrast was not administered fo r this examination. A dose lowering technique was utilized adhering to the principles of ALARA. CT DOSE: 1133.74 mGy.cm FINDINGS: Skeletal structures: The skeletal structures are osteopenic. There is no evidence of fracture or subl uxation involving the cervical spine. Vertebral body height and alignment are maintained. There is st raightening of the cervical lordosis. Anterior osteophytes are seen throughout. The odontoid process and lateral masses are intact. The atlantoaxial articulation is preserved noting advanced productive degenerative change. The spinous processes appear intact. There is moderate to advanced multilevel ce rvical spondylosis. Uncovertebral and facet arthropathy contribute to neural foraminal narrowing at m ost levels. Intervertebral discs: There is moderate disc space narrowing at C3-C4. Advanced disc space narrowing is seen at C5-C6 and C6-C7. Milder disc space narrowing is seen at the remaining cervical levels. Central canal: Large posterior disc osteophyte complexes are seen at C3-C4, C5-C6, and C6-C7. This li jose contributes to multilevel acquired compromise of the central canal. Soft tissues: The prevertebral and paraspinous soft tissues are within normal limits. The left lobe o f the thyroid gland is diminutive versus surgically absent. There is atherosclerotic calcification of the carotid bulbs. Calvarium: The visualized calvarium at the skull base appears intact. Brain parenchyma: Partially visualized brain parenchyma at the skull base is within normal limits. Sinuses and mastoids: The visualized paranasal sinuses are clear. There are left larger than right ma stoid effusions. Lung apices: Clear as visualized. IMPRESSION: 1. There is no evidence of fracture or subluxation involving the cervical spine. 2. Osteopenia and spondylotic change as above. ACT 112: Negative or not required by law. Electronically signed by: Miguel Bloom M.D. 07/05/2020 11:12 PM
--- NOTE | 2020-07-05 23:30 | CT Scan Report ---
CT SCAN OF THE FACIAL BONES WITHOUT IV CONTRAST CLINICAL HISTORY: Trauma. Fall. COMPARISON STUDY: CT of the brain performed concurrently on 07/05/2020. TECHNIQUE: High-resolution CT scan of the facial bones is performed. Images are reviewed in the axia l, sagittal, and coronal planes. IV contrast was not administered for this examination. A dose lower ing technique was utilized adhering to the principles of ALARA. FINDINGS: The skeletal structures are osteopenic. There is no evidence of facial bone fracture. The b nathen orbits are intact and the orbital contents are within normal limits noting bilateral ocular lens implants. The zygomatic arches, nasal bones, and pterygoid plates are preserved. The maxilla and jose rafael ible are intact. There are no layering blood products within the paranasal sinuses. Trace mucosal thi ckening is seen within the right maxillary antrum. The remaining paranasal sinuses are clear. There a re left larger than right mastoid effusions. Cerumen is noted in the external auditory canals. The vi sualized calvarium and upper cervical spine are maintained. Partially imaged brain parenchyma is with in normal limits noting age-related involutional change. The patient is edentulous. IMPRESSION: There is no evidence of facial bone fracture. ACT 112: Negative or not required by law. Electronically signed by: Miguel Bloom M.D. 07/05/2020 11:29 PM
--- NOTE | 2020-07-05 23:32 | XRay Report ---
RIGHT SHOULDER 3 VIEWS CLINICAL HISTORY: Fall with right shoulder injury. FINDINGS: 3 views of the right shoulder are obtained. No prior studies are available for comparison a t the time of dictation. The skeletal structures are osteopenic. There is no radiographic evidence of fracture or dislocation. Productive degenerative change is seen at the acromioclavicular joint. Arth ritic change is also seen at the glenohumeral articulation. Degenerative sclerosis is noted in the gr eater tuberosity. The overlying soft tissues are normal as imaged. The visualized right lung parenchy ma appears clear. The heart is enlarged noting atherosclerotic calcification of the thoracic aorta. IMPRESSION: Osteopenia and degenerative change as above with no acute bony abnormality identified. Electronically signed by: Miguel Bloom M.D. 07/05/2020 11:31 PM
--- NOTE | 2020-07-05 23:34 | XRay Report ---
SINGLE VIEW CHEST CLINICAL HISTORY: Fall. FINDINGS: 2 AP, portable, upright chest radiographs are compared to study dated 07/31/2018. The heart is enlarged noting atherosclerotic calcification of the thoracic aorta. The pulmonary vasculature is noncongested. There is bibasilar scarring/atelectasis. No airspace consolidation or large pleural eff usion is identified. No pneumothorax is seen. The skeletal structures are osteopenic. The bony thorax is grossly intact. Degenerative change is noted in the shoulders and thoracic spine. IMPRESSION: Cardiomegaly with no acute cardiopulmonary abnormality. ACT 112: Negative or not required by law. Electronically signed by: Miguel Bloom M.D. 07/05/2020 11:32 PM
[2020-07-05] MEDS ORDERED: LIDOCAINE 5% 1 PATCH TD STA (23:42)
[2020-07-05] MEDS ORDERED: oxyCODONE HCL IR 5 MG TAB (IMMEDIATE RELEASE) PO STA (23:42)
[2020-07-06] MEDS ORDERED: INSULIN GLARGINE SOLOSTAR 100 UNITS/ML 3 ML PEN SC STA (01:34)
--- NOTE | 2020-07-06 01:36 | History & Physical Report ---
Date of Service July 06, 2020 Assessment & Plan (1) Asymptomatic hypertensive urgency: Secondary to pain from fall History of chronic pain Ambulatory dysfunction chronic diastolic heart failure (EF 55 to 60%, TTE 2019), patient on the dry side history nonocclusive CAD as per records hyperlipidemia on statin Rx DM2 insulin requiring, suboptimal control as of recent outpatient hemoglobin A1c of 02 March 2020 ARF on CRI chronic anemia, hemoglobin at baseline prostate cancer status post radiation, Lupron Rx Functional disability past tobacco abuse OBS Medical telemetry Initiate Norvasc Analgesia, judicious narcotic use Hold lisinopril and home diuretic until baseline creatinine known Baseline UA, monitor creatinine response to IVF Basal insulin, ISS BG goal [id number], carb count coverage, update hemoglobin A1c PT OT eval DVT prophylaxis. Heparin subcu Full code Patient requesting for Ms. Maria Dolores Cardenas (patient trusted friend) to be updated of plan of care. Contact #[phone]. Secondary contact is patient's son (Mr. Aj Pool, contact #[phone]/ [phone].) Text document was generated using [employer] voice recognition software. It may contain grammatical or spelling errors. Kindly contact undersigned for clarification of any documentation item in question. History of Present Illness Chief Complaint: Could not get up from the floor Primary Care Provider: Latha Gómez DO History obtained from patient, family, and records. Medical history significant for chronic diastolic heart failure (EF 55 to 60%, TTE 2019), history nonocclusive CAD as per records, hypertension, hyperlipidemia, DM2 insulin requiring, CRI (? baseline creatinine 1.7), chronic anemia (baseline hemoglobin up to 13), chronic pain, prostate cancer status post radiation, Lupron Rx, past tobacco abuse. Last confinement July 2018 for decompensated heart failure. Yesterday, patient slid off a chair landing on his bottom on the floor. No head trauma/headache, no chest pain, no S OB, no syncope. Achy pain "shooting inside" as per patient. Unable to get up from the floor. At the ER, patient refusing to go to rehab without his pain being controlled. 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, lives with his dog Allergies Allergy/AdvReac Type Severity Reaction Status Date / Time No Known Allergies Verified 07/05/20 23:35 Home Medications Medication Instructions Recorded Confirmed Type Lantus Solostar U-100 Insulin 15 units SUBCUT BID 07/31/18 07/06/20 History ascorbic acid (vitamin C) 500 mg PO DAILY 07/31/18 07/05/20 History aspirin 81 mg PO DAILY 07/31/18 07/05/20 History citalopram 20 mg PO DAILY 07/31/18 07/05/20 History cod liver oil 1 cap PO DAILY 07/31/18 07/05/20 History esomeprazole magnesium 40 mg PO DAILY 07/31/18 07/05/20 History glipizide 5 mg PO BIDM 07/31/18 07/05/20 History glipizide 10 mg PO BIDM 07/31/18 07/05/20 History guaifenesin 600 mg PO BID PRN 07/31/18 07/05/20 History hydrocodone-acetaminophen 1 tab PO TID PRN 07/31/18 07/05/20 History tnifi-yehis-1-ezs-nfr-hmbhzp 1 cap PO DAILY 07/31/18 07/05/20 History [krill oil] lidocaine [Lidoderm] 1 patch TOPICAL DAILY PRN 07/31/18 07/05/20 History omega 3-nxz-pdv-fish oil 1 cap PO DAILY 07/31/18 07/05/20 History potassium chloride 10 meq PO DAILY 07/31/18 07/05/20 History pravastatin [Pravachol] 20 mg PO HS 07/31/18 07/05/20 History spironolactone 12.5 mg PO DAILY 07/31/18 07/05/20 History tamsulosin 0.8 mg PO DAILY@1800 07/31/18 07/06/20 History torsemide 40 mg PO DAILY #0 tab 08/03/18 07/05/20 Rx multivitamin 1 tab PO DAILY 07/05/20 07/05/20 History Past Med/Surg History Medical History Chronic back pain Chronic diastolic heart failure Diaphragmatic hernia Diverticulitis GERD (gastroesophageal reflux disease) Hyperlipidemia Hypertension Narcotic dependence Prostate cancer "Prostate, adenocarcinoma, cristina 3 + 3, PSA 6.66, cT1c, group I TREATMENT: Prostate seed implant - Cesium 131 - 06/30/2011 - monotherapy alone, Lupron for 6 months prior to implantation." Type 2 diabetes mellitus Venous insufficiency Surgical History History of hip replacement History of knee replacement Status post hernia repair Family History Mother Stroke Social History Smoking Status: Former smoker Second Hand Exposure: No; Do You Dip or Chew Tobacco: Yes; Tobacco Cessation Education Requested by Patient: No Hx Alcohol Use: Yes (quit) Alcohol Intake Frequency Comment: history of daily use, recently quit Hx Substance Use: No Preferred Language: Urdu Communication Ability: Effective 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 Beliefs That Will Affect Care: None marital status: Current Living Situation: Alone current occupational status: retired Other Information That Helps Us Care for You: No Feels Safe at Home: Yes Safety Concerns: Feels Safe At This Time Assistive Devices: Walker Review of Systems Review of Systems: As per HPI, all 10 systems reviewed, all other ROS negative Physical Exam Physical Exam: GENERAL: uncomfortable, odd affect, obese, no respiratory distress SKIN: Normal color, warm HEENT: Alopecia, [place] palpebral conjunctivae, no ptosis, dry buccal mucosa NECK : Supple, short neck, no tenderness CHEST : Decreased breath sounds, no tenderness HEART : RRR, no obvious murmurs ABDOMEN: Some distention, nontender EXTREMITIES : Bilateral LE swelling, no LE tenderness, no other conspicuous deformities noted NEUROLOGIC : Coherent, no facial asymmetry, chronic RUE rest tremors, no other gross focality Results & Data Results & Data ([facility]) Vital Signs (Past 12 Hours) Vital Signs Temp Pulse Resp BP Pulse Ox 07/06/20 01:00 68 16 130/85 93 07/06/20 00:30 64 20 154/90 H 95 07/06/20 00:00 64 18 180/85 H 93 07/05/20 23:30 67 16 162/90 H 95 07/05/20 23:00 70 18 185/88 H 95 07/05/20 22:30 68 18 160/91 H 96 07/05/20 21:28 37.2 C 71 20 183/94 H 90 Laboratory Results Laboratory Results WBC 12.12 K/uL (4.8-10.8) H 07/05/20 21:40 RBC 4.15 M/uL (4.7-6.1) L 07/05/20 21:40 Hgb 13.3 g/dL (14.0-18.0) L 07/05/20 21:40 Hct 39.9 % (42-52) L 07/05/20 21:40 MCV 96.1 fL (80-100) 07/05/20 21:40 MCH 32.0 pg (25-34) 07/05/20 21:40 MCHC 33.3 g/dL (32-36) 07/05/20 21:40 RDW Std Deviation 44.6 fL (36.4-46.3) 07/05/20 21:40 RDW Coeff of [place] 12.8 % (11.5-14.5) 07/05/20 21:40 Plt Count 265 K/uL (130-400) 07/05/20 21:40 MPV 11.4 fL (7.4-10.4) H 07/05/20 21:40 Immature Gran % (Auto) 0.7 % 07/05/20 21:40 Neut % (Auto) 68.0 % 07/05/20 21:40 Lymph % (Auto) 20.3 % 07/05/20 21:40 Tift % (Auto) 10.0 % 07/05/20 21:40 Eos % (Auto) 0.8 % 07/05/20 21:40 Baso % (Auto) 0.2 % 07/05/20 21:40 Neut # (Auto) 8.25 K/uL (1.4-6.5) H 07/05/20 21:40 Lymph # (Auto) 2.46 K/uL (1.2-3.4) 07/05/20 21:40 Tift # (Auto) 1.21 K/uL (0.11-0.59) H 07/05/20 21:40 Eos # (Auto) 0.10 K/uL (0-0.5) 07/05/20 21:40 Baso # (Auto) 0.02 K/uL (0-0.2) 07/05/20 21:40 Immature Gran # (Auto) 0.08 K/uL (0.00-0.02) H 07/05/20 21:40 Sodium 134 mmol/L (136-145) L 07/05/20 21:40 Potassium 4.2 mmol/L (3.5-5.1) 07/05/20 21:40 Chloride 96 mmol/L (98-107) L 07/05/20 21:40 Carbon Dioxide 29 mmol/L (21-32) 07/05/20 21:40 Anion Gap 8.0 (3-11) 07/05/20 21:40 BUN 34 mg/dl (7-18) H 07/05/20 21:40 Creatinine 1.67 mg/dl (0.6-1.4) H 07/05/20 21:40 Est Cr Clr Drug Dosing 48.3 ml/min 07/05/20 21:40 Est GFR ( Amer) 43.5 07/05/20 21:40 Est GFR (Non-Af Amer) 37.5 07/05/20 21:40 BUN/Creatinine Ratio 20.5 (10-20) H 07/05/20 21:40 Glucose 292 mg/dl (70-99) H 07/05/20 21:40 Calcium 9.7 mg/dl (8.5-10.1) 07/05/20 21:40 COVID-19 Eval Order Covid19 [facility]Now [facility] 07/06/20 00:30 SARS-CoV-2, RNA, NAAT NEGATIVE (NEGATIVE) 07/06/20 00:[address] head: There is no hemorrhage, mass effect, or evidence of acute territorial ischemia by CT criteria. CT cervical spine: 1. There is no evidence of fracture or subluxation involving the cervical spine. 2. Osteopenia and spondylotic change as above. Face CT: There is no evidence of facial bone fracture. Right shoulder x-ray: Osteopenia and degenerative change as above with no acute bony abnormality identified. Right rib series: No right-sided rib fractures identified. Chest x-ray : Cardiomegaly with no acute cardiopulmonary abnormality. EKG as per my interpretation : Rate 70, NSR, normal axis, T wave flattening lateral leads
[2020-07-06] MEDS ORDERED: HYDROCODONE/ACETAMOPHEN 5/325MG TAB PO STA (01:37)
[2020-07-06] MEDS ORDERED: amLODIPine BESYLATE 5 MG TAB PO STA (01:38)
[2020-07-06 02:14] LABS: Albumin Level 3.5 gm/dl (3.4-5.0); Bilirubin Direct 0.3 mg/dl (0-0.2); Magnesium 2.3 mg/dl (1.8-2.4); Total Protein 8.4 gm/dl (6.4-8.2)
[2020-07-06] MEDS ORDERED: GLUCAGON FOR INJ 1 MG VIAL SQ PRN (02:38)
[2020-07-06] MEDS ORDERED: GLUCOSE 40% GEL 15 GM TUBE PO PRN (02:38)
[2020-07-06] MEDS ORDERED: SODIUM CHLORIDE 0.9% 1000ML 1,000 ML IV ONE (02:38)
[2020-07-06] MEDS ORDERED: DEXTROSE 50% 50 ML SYRINGE IV PRN (02:38)
[2020-07-06] MEDS ORDERED: LIDOCAINE 5% 1 PATCH TD PRN (02:38)
[2020-07-06] MEDS ORDERED: CARBOHYDRATES FOR HYPOGLYCEMIA PO PRN (02:38)
[2020-07-06] MEDS ORDERED: GLUCOSE 10 TABS/TUBE PO PRN (02:38)
[2020-07-06] MEDS: INSULIN ASPART 100 UNITS/ML 3 ML PEN SC SCH ×5 (03:02→20:26)
[2020-07-06] MEDS: HYDROcodone/ACETAMINOPHEN 10/325 TAB PO PRN (04:29)
[2020-07-06] MEDS: HEPARIN SOD 5,000 UNIT/0.5 ML VIAL SQ SCH ×3 (05:41→21:18)
[2020-07-06 06:12] LABS: Basophils # (auto) 0.03 K/uL (0-0.2); Basophils % (auto) 0.2 %; Eosinophils # (auto) 0.21 K/uL (0-0.5); Eosinophils % (auto) 1.7 %; Immature Granulocytes # (auto) 0.09 K/uL (0.00-0.02); Immature Granulocytes % (auto) 0.7 %; Lymphocytes # (auto) 3.08 K/uL (1.2-3.4); Lymphocytes % (auto) 25.2 %; Mean Corpuscular Hemoglobin 32.2 pg (25-34); Mean Corpuscular Hgb Conc 33.3 g/dL (32-36); Mean Corpuscular Volume 96.5 fL (80-100); Mean Platelet Volume 11.3 fL (7.4-10.4); Monocytes # (auto) 1.28 K/uL (0.11-0.59); Monocytes % (auto) 10.5 %; Neutrophils # (auto) 7.52 K/uL (1.4-6.5); Neutrophils % (auto) 61.7 %; Platelet Count 274 K/uL (130-400); RDW Coefficient of Variation 12.5 % (11.5-14.5); RDW Standard Deviation 44.3 fL (36.4-46.3); Red Blood Count 4.04 M/uL (4.7-6.1); White Blood Count 12.21 K/uL (4.8-10.8)
[2020-07-06 06:39] LABS: Albumin Level 3.4 gm/dl (3.4-5.0); BUN Creatinine Ratio 21.4 (10-20); Calcium 9.4 mg/dl (8.5-10.1); Creatinine Clr Calc Pharmacy 55.2 ml/min; Est GFR (African American) 51.2; Est GFR (Non-African American) 44.2
[2020-07-06 06:41] LABS: Albumin Globulin Ratio 0.7 (0.9-2); Bilirubin,Total 1.1 mg/dl (0.2-1); Globulin 4.7 gm/dl (2.5-4.0); Total Protein 8.1 gm/dl (6.4-8.2)
[2020-07-06] MEDS: ASPIRIN 81 MG ECTAB PO SCH (07:42)
[2020-07-06] MEDS: MULTIVITAMIN TAB PO SCH (07:42)
[2020-07-06] MEDS: CITALOPRAM 20 MG TAB PO SCH (07:42)
[2020-07-06] MEDS: PANTOprazole 40 MG TAB PO SCH (07:42)
[2020-07-06] MEDS ORDERED: INFLUENZA ADMINISTRATION CHARGE ONE (08:00)
[2020-07-06] MEDS ORDERED: INFLUENZA VACCINE HIGH DOSE 65+ 0.7 ML SYR IM ONE (08:00)
[2020-07-06] MEDS ORDERED: PNEUMOCOCCAL ADMINISTRATION CHARGE ONE (08:00)
[2020-07-06] MEDS ORDERED: PNEUMOCOCCAL POLYSACCHARIDES 25 MCG/0.5 ML VIAL/SYR IM ONE (08:00)
[2020-07-06] MEDS: INSULIN GLARGINE SOLOSTAR 100 UNITS/ML 3 ML PEN SQ SCH ×2 (08:06→20:27)
[2020-07-06 12:16] LABS: Amphetamines+Metham, Urine Neg (Neg); Barbiturates, Urine Neg (Neg); Benzodiazepine, Urine Neg (Neg); Cocaine, Urine Neg (Neg); MDMA (Ecstacy), Urine Neg (Neg); Methadone, Urine Neg (Neg); Opiate, Urine Pos (Neg); Phencyclidine, Urine Neg (Neg)
[2020-07-06 12:32] LABS: Appearance Urine Clear (Clear); Bilirubin Urine Negative (Negative); Blood Urine Negative (Negative); Color Urine Dark Yellow; Glucose Urine UA 1+ (Negative); Ketones Urine Negative (Negative); Leukocyte Esterase Urine Negative (Negative); Nitrite Urine Negative (Negative); Protein Urine Negative (Negative); Specific Gravity Urine 1.018 (1.000-1.030); Urobilinogen Urine Negative (Negative)
--- NOTE | 2020-07-06 15:29 | Hospitalist Progress Note ---
Date of Service July 06, 2020 Assessment & Plan (1) Asymptomatic hypertensive urgency: Ambulatory dysfunction Mechanical fall -Head CT:There is no hemorrhage, mass effect, or evidence of acute territorial ischemia by CT criteria. -Neck CT:There is no evidence of fracture or subluxation involving the cervical spine. Osteopenia and spondylotic change as above. -CXR: Cardiomegaly with no acute cardiopulmonary abnormality. -Face CT:There is no evidence of facial bone fracture. -Right Shoulder X ray:Osteopenia and degenerative change as above with no acute bony abnormality identified. -Fall Precautions -Right Rib X ray:pending -PT/OT -Pain control -May need Rehab placement Hypertensive Urgency Likely situational secondary to pain Continue amlodipine Resume lisinopril as able Also on tamsulosin Monitor Chronic diastolic heart failure Last EF 55 to 60%, TTE 2019 Resume diuretics as able Monitor Volume status CKD III Baseline Cr ~ Mid 1s Cr: 1.46 today Monitor renal function Avoid Nephrotoxic agents as able Nonocclusive CAD Continue aspirin, statin Hyperlipidemia on statin DM II HbA1C: Pending Hold Bumex Continue insulin therapy while hospitalized Monitor blood glucose levels H/O Prostate cancer S/P Radiation, Lupron DVT Px: Heparin SQ Code Status Full code Disposition PT/OT prior to discharge Family: Patient 's Brother: [phone] Admission and Anticipated Discharge Date Admission Date: July 06, 2020 Subjective Patient is seen and examined at bedside Complains of chronic lower back pain Also states having right-sided neck, chest, shoulder pain secondary to fall Denies dyspnea, dizziness, nausea, abdominal pain, vomiting Offers no other complaints Review of Systems Review of Systems: All systems reviewed & are unremarkable except as noted in HPI & below Physical Exam Physical Exam: Physical Exam: Vitals signs as noted above General Appearance:Obese, no apparent distress Head: normocephalic, Atraumatic Eyes: normal inspection, EOMI Neck: supple, Trachea midline Respiratory/Chest: Decrease breath sounds, CTA Cardiovascular: S1, S2, No murmur Abdomen/GI:Soft, Non tender, Bowel sounds present Extremities/Musculoskelatal:normal inspection, chronic venous stasis, bilateral lower extremity edema, +RUE tremor--chronic per patient Neurologic/Psych:AAOX3, grossly no focal neurological deficits Skin: normal color, warm Results & Data Results & Data ([place]) Vital Signs (Past 12 Hours) Vital Signs Temp Pulse Resp BP Pulse Ox 07/06/20 15:04 37.0 C 78 20 164/73 H 93 07/06/20 11:16 37.0 C 80 20 164/74 H 90 07/06/20 07:46 36.4 C L 76 20 153/79 H 92 Laboratory Results Short CBC 07/05/20 07/06/20 Range/Units 21:40 05:50 WBC 12.12 H 12.21 H (4.8-10.8) K/uL Hgb 13.3 L 13.0 L (14.0-18.0) g/dL Hct 39.9 L 39.0 L (42-52) % Plt Count 265 274 (130-400) K/uL BMP 07/05/20 07/06/20 21:40 05:50 Sodium 134 L 136 Potassium 4.2 4.0 Chloride 96 L 99 Carbon Dioxide 29 33 H BUN 34 H 31 H Creatinine 1.67 H 1.46 H Glucose 292 H 184 H Calcium 9.7 9.4 Cardiac Enzymes 07/05/20 Range/Units 21:40 Total Creatine Kinase 98 (39-308) U/L Liver Function 07/05/20 07/06/20 Range/Units 21:40 05:50 Total Bilirubin 1.0 1.1 H (0.2-1) mg/dl Direct Bilirubin 0.3 H (0-0.2) mg/dl AST 53 H 41 H (15-37) U/L ALT 64 57 (12-78) U/L Alkaline Phosphatase 145 H 135 H (45-117) U/L Albumin 3.5 3.4 (3.4-5.0) gm/dl Urine 07/06/20 Range/Units 11:14 Urine Color Dark Yellow Urine Appearance Clear (Clear) Urine pH 5.0 (4.5-7.5) Ur Specific [place] 1.018 (1.000-1.030) Urine Protein Negative (Negative) Urine Glucose (UA) 1+ H (Negative)
--- NOTE | 2020-07-06 16:17 | XRay Report ---
XR ribs RT min 2V CLINICAL HISTORY: Right rib pain status post trauma COMPARISON: July 05, 2020 DISCUSSION: No pneumothorax is visualized. No right-sided rib fractures are to 5 IMPRESSION: No right-sided rib fractures identified. ACT 112: Negative or not required by law. Electronically signed by: Buddy Garza M.D. 07/06/2020 4:15 PM
[2020-07-06] MEDS: TAMSULOSIN HCL 0.4 MG CAP PO SCH (17:29)
[2020-07-06] MEDS: PRAVASTATIN SOD 20 MG TAB PO SCH (20:26)
[2020-07-06] MEDS ORDERED: amLODIPine BESYLATE 5 MG TAB PO SCH (21:00)
[2020-07-06] MEDS: amLODIPine BESYLATE 5 MG TAB PO SCH (21:18)
[2020-07-07] MEDS: HEPARIN SOD 5,000 UNIT/0.5 ML VIAL SQ SCH ×3 (04:53→20:40)
--- NOTE | 2020-07-07 05:29 | Electrocardiogram Report ---
Test Reason : Blood Pressure : / mmHG Vent. Rate : 070 BPM Atrial Rate : 070 BPM P-R Int : 208 ms QRS Dur : 086 ms QT Int : 412 ms P-R-T Axes : 040 036 065 degrees QTc Int : 444 ms Normal sinus rhythm Normal ECG When compared with ECG of 31-JUL-2018 19:31, No significant change was found Confirmed by Weston Portillo ([id number]) on 07/07/2020 5:28:35 AM Referred By: REFERRED SELF Confirmed By:Weston Portillo
[2020-07-07 06:01] LABS: Hematocrit (blood only) 35.4 % (42-52); Hemoglobin 11.9 g/dL (14.0-18.0); Mean Corpuscular Hgb Conc 33.6 g/dL (32-36); Mean Corpuscular Volume 95.2 fL (80-100); Platelet Count 248 K/uL (130-400); RDW Coefficient of Variation 12.4 % (11.5-14.5); Red Blood Count 3.72 M/uL (4.7-6.1); White Blood Count 11.49 K/uL (4.8-10.8)
[2020-07-07 06:07] LABS: Estimated Average Glucose 246 mg/dl; Hemoglobin A1C 10.2 % (4.5-5.6)
[2020-07-07 06:28] LABS: BUN Creatinine Ratio 20.1 (10-20); Calcium 9.9 mg/dl (8.5-10.1); Creatinine Clr Calc Pharmacy 58.4 ml/min; Est GFR (African American) 54.8; Est GFR (Non-African American) 47.3
[2020-07-07] MEDS: PROMETHAZINE HCL 12.5 MG in SODIUM CHLORIDE 0.9% 50 ML IV PRN (08:01)
[2020-07-07] MEDS: INSULIN ASPART 100 UNITS/ML 3 ML PEN SC SCH ×4 (08:39→20:39)
[2020-07-07] MEDS: MULTIVITAMIN TAB PO SCH (08:41)
[2020-07-07] MEDS: ASPIRIN 81 MG ECTAB PO SCH (08:41)
[2020-07-07] MEDS: CITALOPRAM 20 MG TAB PO SCH (08:41)
[2020-07-07] MEDS: INSULIN GLARGINE SOLOSTAR 100 UNITS/ML 3 ML PEN SQ SCH ×2 (08:42→20:39)
[2020-07-07] MEDS: PANTOprazole 40 MG TAB PO SCH (08:42)
[2020-07-07] MEDS ORDERED: lisinopril 5 MG TAB PO SCH (09:00)
[2020-07-07] MEDS ORDERED: BENZONATATE 100 MG CAPSULE PO PRN (10:36)
--- NOTE | 2020-07-07 11:18 | XRay Report ---
XR chest 1V portable CLINICAL HISTORY: cough COMPARISON STUDY: 07/05/2020 FINDINGS: The heart is enlarged. There is no failure. There are mild basilar atelectatic changes. The re is no lobar consolidation.[ IMPRESSION: Cardiomegaly and mild basilar atelectasis. ACT 112: Negative or not required by law. Electronically signed by: Buddy Garza M.D. 07/07/2020 11:17 AM
[2020-07-07] MEDS: SPIRONOLACTONE 12.5 MG TAB PO SCH (12:13)
[2020-07-07] MEDS: DOXYCYCLINE HYCLATE 100 MG CAP PO SCH ×2 (14:18→20:40)
--- NOTE | 2020-07-07 15:44 | Hospitalist Progress Note ---
Date of Service July 07, 2020 Assessment & Plan (1) Asymptomatic hypertensive urgency: Ambulatory dysfunction Mechanical fall -Head CT:There is no hemorrhage, mass effect, or evidence of acute territorial ischemia by CT criteria. -Neck CT:There is no evidence of fracture or subluxation involving the cervical spine. Osteopenia and spondylotic change as above. -CXR: Cardiomegaly with no acute cardiopulmonary abnormality. -Face CT:There is no evidence of facial bone fracture. -Right Shoulder X ray:Osteopenia and degenerative change as above with no acute bony abnormality identified. -Fall Precautions -Right Rib X ray: No right-sided rib fractures identified. -PT/OT -Pain control -Needs Rehab placement Possible Bronchitis Diarrhea CXR:Cardiomegaly and mild basilar atelectasis. Negative COVID Screen Normal Lactate, Procalcitonin levels Blood Cx:pending UA: normal Check stool studies Empirically started on Doxycycline Hypertensive Urgency Likely situational secondary to pain Continue amlodipine, lisinopril Also on tamsulosin Monitor Chronic diastolic heart failure Last EF 55 to 60%, TTE 2018 Resume Aldactone today Torsemide on hold for now Monitor Volume status CKD III Baseline Cr ~ Mid 1s Cr: 1.3 Monitor renal function Avoid Nephrotoxic agents as able Nonocclusive CAD Continue aspirin, statin Hyperlipidemia on statin DM II HbA1C: 10.2 Hold PO meds Continue insulin therapy while hospitalized Monitor blood glucose levels H/O Prostate cancer S/P Radiation, Lupron DVT Px: Heparin SQ Code Status Full code Disposition Needs Rehab placement when medically stable Family: Patient 's Brother: [phone] Admission and Anticipated Discharge Date Admission Date: July 07, 2020 Subjective Patient is seen and examined at bedside Developed low-grade fever this morning Complains of dry cough, diarrhea Right-sided neck, chest, shoulder pain improved Has chronic lower back pain Denies dyspnea, dizziness, nausea, abdominal pain, vomiting Review of Systems Review of Systems: All systems reviewed & are unremarkable except as noted in HPI & below Physical Exam Physical Exam: Physical Exam: Vitals signs as noted above General Appearance:Obese, no apparent distress Head: normocephalic, Atraumatic Eyes: normal inspection, EOMI Neck: supple, Trachea midline Respiratory/Chest: Decrease breath sounds, CTA Cardiovascular: S1, S2, No murmur Abdomen/GI:Soft, Non tender, Bowel sounds present Extremities/Musculoskelatal:normal inspection, chronic venous stasis, bilateral lower extremity edema, +RUE tremor--chronic per patient Neurologic/Psych:AAOX3, grossly no focal neurological deficits Skin: normal color, warm Results & Data Results & Data ([facility]) Vital Signs (Past 12 Hours) Vital Signs Temp Pulse Pulse Resp BP Pulse Ox 07/07/20 15:00 69 07/07/20 11:39 37.7 C H 20 175/75 H 93 07/07/20 08:10 36.4 C L 67 18 176/76 H 97 07/07/20 07:18 76 Laboratory Results Short CBC 07/07/20 Range/Units 05:30 WBC 11.49 H (4.8-10.8) K/uL Hgb 11.9 L (14.0-18.0) g/dL Hct 35.4 L (42-52) % Plt Count 248 (130-400) K/uL BMP 07/07/20 05:30 Sodium 137 Potassium 4.0 Chloride 102 Carbon Dioxide 29 BUN 28 H Creatinine 1.38 Glucose 192 H Calcium 9.9
[2020-07-07] MEDS: TAMSULOSIN HCL 0.4 MG CAP PO SCH ×2 (17:19→20:08)
[2020-07-07] MEDS: amLODIPine BESYLATE 5 MG TAB PO SCH (20:38)
[2020-07-07] MEDS: PRAVASTATIN SOD 20 MG TAB PO SCH (20:40)
[2020-07-08] MEDS ORDERED: amLODIPine BESYLATE 5 MG TAB PO ONE (04:27)
[2020-07-08] MEDS: HEPARIN SOD 5,000 UNIT/0.5 ML VIAL SQ SCH ×3 (05:39→21:05)
[2020-07-08] MEDS: PROMETHAZINE HCL 12.5 MG in SODIUM CHLORIDE 0.9% 50 ML IV PRN (05:58)
[2020-07-08 06:26] LABS: Hematocrit (blood only) 36.9 % (42-52); Hemoglobin 12.4 g/dL (14.0-18.0); Mean Corpuscular Hgb Conc 33.6 g/dL (32-36); Mean Corpuscular Volume 95.1 fL (80-100); Mean Platelet Volume 11.2 fL (7.4-10.4); Platelet Count 283 K/uL (130-400); RDW Coefficient of Variation 12.4 % (11.5-14.5); RDW Standard Deviation 42.9 fL (36.4-46.3); Red Blood Count 3.88 M/uL (4.7-6.1); White Blood Count 15.26 K/uL (4.8-10.8)
[2020-07-08 07:00] LABS: BUN Creatinine Ratio 21.8 (10-20); Calcium 9.6 mg/dl (8.5-10.1); Creatinine Clr Calc Pharmacy 67.2 ml/min; Est GFR (African American) 64.9; Potassium 4.1 mmol/L (3.5-5.1)
[2020-07-08] MEDS: lisinopril 5 MG TAB PO SCH (07:43)
[2020-07-08] MEDS: PANTOprazole 40 MG TAB PO SCH (08:29)
[2020-07-08] MEDS: DOXYCYCLINE HYCLATE 100 MG CAP PO SCH (08:29)
[2020-07-08] MEDS: CITALOPRAM 20 MG TAB PO SCH (08:30)
[2020-07-08] MEDS: ASPIRIN 81 MG ECTAB PO SCH (08:30)
[2020-07-08] MEDS: MULTIVITAMIN TAB PO SCH (08:30)
[2020-07-08] MEDS: SPIRONOLACTONE 12.5 MG TAB PO SCH (08:30)
[2020-07-08] MEDS: INSULIN ASPART 100 UNITS/ML 3 ML PEN SC SCH ×4 (08:34→20:26)
[2020-07-08] MEDS: INSULIN GLARGINE SOLOSTAR 100 UNITS/ML 3 ML PEN SQ SCH ×2 (08:36→20:25)
[2020-07-08] MEDS ORDERED: amLODIPine BESYLATE 5 MG TAB PO SCH (09:00)
--- NOTE | 2020-07-08 10:40 | XRay Report ---
KUB HISTORY: Acute nausea with vomiting nausea, vomiting COMPARISON: CT abdomen and pelvis 02/05/2016 FINDINGS: The bowel gas pattern is non-obstructive.. Radiotherapy seeds of the prostate. No renal ca lculi. No ureteral calculi. No pneumoperitoneum or pneumatosis. Degenerative changes of the spine, pe lvis and hips. Mild lumbar levoscoliosis. No fracture. IMPRESSION: Nonobstructive bowel gas pattern. ACT 112: Negative or not required by law. The above report was generated using voice recognition software. It may contain grammatical, syntax o r spelling errors. Electronically signed by: Ken Aguilar M.D. 07/08/2020 10:39 AM
[2020-07-08] MEDS: cefTRIAXone SODIUM 2,000 MG in DEXTROSE 5% 50 ML IV SCH (11:00)
--- NOTE | 2020-07-08 15:36 | Hospitalist Progress Note ---
Date of Service July 08, 2020 Assessment & Plan (1) Asymptomatic hypertensive urgency: Ambulatory dysfunction Mechanical fall -Head CT:There is no hemorrhage, mass effect, or evidence of acute territorial ischemia by CT criteria. -Neck CT:There is no evidence of fracture or subluxation involving the cervical spine. Osteopenia and spondylotic change as above. -CXR: Cardiomegaly with no acute cardiopulmonary abnormality. -Face CT:There is no evidence of facial bone fracture. -Right Shoulder X ray:Osteopenia and degenerative change as above with no acute bony abnormality identified. -Fall Precautions -Right Rib X ray: No right-sided rib fractures identified. -PT/OT -Pain control -Needs Rehab placement Possible Bronchitis Diarrhea--R/O infection CXR:Cardiomegaly and mild basilar atelectasis. KUB:Nonobstructive bowel gas pattern. Negative COVID Screen Normal Lactate, Procalcitonin levels Blood/Urine Cx:pending Stool negative for C diff Empirically started on Doxycycline, Rocephin Dysphagia Speech therapy consulted Aspiration precautions Hypertensive Urgency Likely situational secondary to pain Continue amlodipine, lisinopril Also on tamsulosin Monitor Chronic diastolic heart failure Last EF 55 to 60%, TTE 2019 Continue Aldactone Resume Torsemide as able Monitor Volume status CKD III Baseline Cr ~ Mid 1s Cr: 1.2 Monitor renal function Avoid Nephrotoxic agents as able Nonocclusive CAD Continue aspirin, statin Hyperlipidemia on statin DM II HbA1C: 10.2 Hold PO meds Continue insulin therapy while hospitalized Monitor blood glucose levels H/O Prostate cancer S/P Radiation, Lupron DVT Px: Heparin SQ Code Status Full code Disposition Needs Rehab placement when medically stable Family: Patient 's Brother: [phone] Admission and Anticipated Discharge Date Admission Date: July 07, 2020 Subjective Patient is seen and examined at bedside RN noted the patient to have dysphagia Patient also had nausea, vomiting and was febrile today Poor historian less cough today Denies chest pain, dyspnea, dizziness, nausea, abdominal pain, vomiting Review of Systems Review of Systems: All systems reviewed & are unremarkable except as noted in HPI & below Physical Exam Physical Exam: Physical Exam: Vitals signs as noted above General Appearance:Obese, no apparent distress Head: normocephalic, Atraumatic Eyes: normal inspection, EOMI Neck: supple, Trachea midline Respiratory/Chest: Decrease breath sounds, CTA Cardiovascular: S1, S2, No murmur Abdomen/GI:Soft, Non tender, Bowel sounds present Extremities/Musculoskelatal:normal inspection, chronic venous stasis, bilateral lower extremity edema, +RUE tremor--chronic per patient Neurologic/Psych:AAOX3, grossly no focal neurological deficits Skin: normal color, warm Results & Data Results & Data ([facility]) Vital Signs (Past 12 Hours) Vital Signs Temp Pulse Pulse Resp BP Pulse Ox 07/08/20 13:20 37.9 C H 07/08/20 11:40 36.7 C 79 20 173/70 H 92 07/08/20 10:20 38.4 C H 07/08/20 07:45 36.9 C 82 20 181/70 H 95 07/08/20 07:17 75 07/08/20 06:13 80 160/70 H 95 07/08/20 05:37 75 187/74 H 96 07/08/20 04:11 37.0 C 72 20 176/72 H 95 Laboratory Results Short CBC 07/08/20 Range/Units 05:30 WBC 15.26 H (4.8-10.8) K/uL Hgb 12.4 L (14.0-18.0) g/dL Hct 36.9 L (42-52) % Plt Count 283 (130-400) K/uL BMP 07/08/20 05:30 Sodium 139 Potassium 4.1 Chloride 105 Carbon Dioxide 26 BUN 26 H Creatinine 1.20 Glucose 177 H Calcium 9.6
[2020-07-08] MEDS: ACETAMINOPHEN 325 MG TAB PO PRN (16:58)
[2020-07-08] MEDS: TAMSULOSIN HCL 0.4 MG CAP PO SCH (17:00)
[2020-07-08] MEDS: DOXYCYCLINE HYCLATE 100 MG in DEXTROSE 5% 100 ML IV SCH (20:28)
[2020-07-08] MEDS: PRAVASTATIN SOD 20 MG TAB PO SCH (20:28)
[2020-07-09] MEDS: HEPARIN SOD 5,000 UNIT/0.5 ML VIAL SQ SCH ×3 (06:01→21:01)
[2020-07-09 06:30] LABS: Basophils # (auto) 0.02 K/uL (0-0.2); Basophils % (auto) 0.1 %; Eosinophils # (auto) 0.04 K/uL (0-0.5); Eosinophils % (auto) 0.3 %; Hematocrit (blood only) 35.3 % (42-52); Hemoglobin 11.8 g/dL (14.0-18.0); Immature Granulocytes # (auto) 0.08 K/uL (0.00-0.02); Immature Granulocytes % (auto) 0.5 %; Lymphocytes # (auto) 2.69 K/uL (1.2-3.4); Lymphocytes % (auto) 17.5 %; Mean Corpuscular Hemoglobin 32.1 pg (25-34); Mean Corpuscular Hgb Conc 33.4 g/dL (32-36); Mean Corpuscular Volume 95.9 fL (80-100); Mean Platelet Volume 11.1 fL (7.4-10.4); Monocytes # (auto) 1.41 K/uL (0.11-0.59); Monocytes % (auto) 9.1 %; Neutrophils # (auto) 11.17 K/uL (1.4-6.5); Neutrophils % (auto) 72.5 %; Platelet Count 292 K/uL (130-400); RDW Coefficient of Variation 12.4 % (11.5-14.5); RDW Standard Deviation 43.8 fL (36.4-46.3); Red Blood Count 3.68 M/uL (4.7-6.1); White Blood Count 15.41 K/uL (4.8-10.8)
[2020-07-09 07:01] LABS: BUN Creatinine Ratio 19.7 (10-20); Calcium 9.7 mg/dl (8.5-10.1); Creatinine Clr Calc Pharmacy 64.2 ml/min; Est GFR (Non-African American) 54.3; Magnesium 2.3 mg/dl (1.8-2.4); Potassium 3.9 mmol/L (3.5-5.1)
[2020-07-09] MEDS: INSULIN ASPART 100 UNITS/ML 3 ML PEN SC SCH ×4 (08:10→20:59)
[2020-07-09] MEDS: INSULIN GLARGINE SOLOSTAR 100 UNITS/ML 3 ML PEN SQ SCH ×2 (08:11→20:59)
[2020-07-09] MEDS: PANTOprazole 40 MG TAB PO SCH (08:12)
[2020-07-09] MEDS: amLODIPine BESYLATE 5 MG TAB PO SCH (08:12)
[2020-07-09] MEDS: SPIRONOLACTONE 12.5 MG TAB PO SCH (08:12)
[2020-07-09] MEDS: ASPIRIN 81 MG ECTAB PO SCH (08:12)
[2020-07-09] MEDS: MULTIVITAMIN TAB PO SCH (08:12)
[2020-07-09] MEDS: CITALOPRAM 20 MG TAB PO SCH (08:12)
[2020-07-09] MEDS: lisinopril 5 MG TAB PO SCH (08:13)
[2020-07-09] MEDS: HYDROcodone/ACETAMINOPHEN 10/325 TAB PO PRN ×2 (08:21→21:00)
[2020-07-09] MEDS: DOXYCYCLINE HYCLATE 100 MG in DEXTROSE 5% 100 ML IV SCH (08:21)
--- NOTE | 2020-07-09 10:29 | Hospitalist Progress Note ---
Date of Service July 09, 2020 Assessment & Plan (1) Asymptomatic hypertensive urgency: Ambulatory dysfunction Mechanical fall -Head CT:There is no hemorrhage, mass effect, or evidence of acute territorial ischemia by CT criteria. -Neck CT:There is no evidence of fracture or subluxation involving the cervical spine. Osteopenia and spondylotic change as above. -CXR: Cardiomegaly with no acute cardiopulmonary abnormality. -Face CT:There is no evidence of facial bone fracture. -Right Shoulder X ray:Osteopenia and degenerative change as above with no acute bony abnormality identified. -Right Rib X ray: No right-sided rib fractures identified. Continue Fall Precautions Needs rehab per PT evaluation once medically stable Had cough some days ago. Had fever yesterday. Based on speech evaluation, this possibility of some aspiration Also has leukocytosis. Based on this, I think patient may have some mild aspiration pneumonitis/pneumonia Currently on ceftriaxone and doxycycline. Currently on room air. Other infectious work-up currently negative -CXR from 07/07/20:Cardiomegaly and mild basilar atelectasis. -KUB:Nonobstructive bowel gas pattern. -Negative COVID Screen -Normal Lactate, Procalcitonin levels -Blood/Urine Cx:pending -Stool negative for C diff We will check procalcitonin again today. If negative, will consider de- escalating antibiotics on monitoring Continue minced and moist diet per speech recommendations. Continue aspiration precautions Hypertensive Urgency Likely situational secondary to pain Continue amlodipine, lisinopril Also on tamsulosin BP getting better controlled Monitor Chronic diastolic heart failure Last EF 55 to 60%, TTE 2019 Continue Aldactone Continue to hold Torsemide for today Monitor Volume status CKD III Baseline Cr ~ Mid 1s Cr: 1.23 Monitor renal function Avoid Nephrotoxic agents as able Nonocclusive CAD Continue aspirin, statin Hyperlipidemia Continue statin DM II HbA1C: 10.2 Hold PO meds Continue insulin therapy while hospitalized Monitor blood glucose levels H/O Prostate cancer S/P Radiation, Lupron DVT Px: Heparin SQ Code Status Full code Disposition Needs Rehab placement when medically stable Family: Patient 's Brother: [phone] Admission and Anticipated Discharge Date Admission Date: July 07, 2020 Subjective Patient seen and examined. Reports only chronic intermittent right knee pain. Denies chest pain, shortness of breath Reports intermittent cough but nothing out of the ordinary. No fevers overnight Denied chills Denies nausea, abdominal pain, diarrhea, constipation Denies problems swallowing Denies dysuria, frequency or urgency Physical Exam Constitutional: + well hydrated and + obese; no acute distress Eyes: PERRL, conjunctivae normal, anicteric sclerae ENMT: external ear and nose normal, oropharynx normal Respiratory: normal respiratory effort, lungs clear to auscultation Cardiovascular: Rate/Rhythm: regular rate and regular rhythm S1-S2 Gastrointestinal (Abdomen): normal bowel sounds, soft, nontender, no hepatosplenomegaly Musculoskeletal: Chronic venous stasis changes, trace bilateral leg edema No differential warmth/ swelling noted on right knee Right hand tremor [reported to be chronic] Neurologic: PERRL, EOMI, accommodation nl, no face palsy, no dysarthria Psychiatric: Patient is alert and oriented to person and date. Knows he is in the hospital but does not remember which. Appears to have limited insight. Results & Data Results & Data ([facility]) Vital Signs (Past 12 Hours) Vital Signs Temp Pulse Pulse Resp BP Pulse Ox 07/09/20 07:25 37.3 C 76 20 143/68 H 94 07/09/20 07:11 74 07/09/20 04:38 36.7 C 74 20 165/72 H 94 07/09/20 02:40 69 07/08/20 23:08 36.8 C 66 20 143/67 H 93 Laboratory Results Laboratory Results - last 24 hr 07/08/20 07/08/20 07/08/20 11:32 13:30 16:49 WBC RBC Hgb Hct MCV MCH MCHC RDW Std Deviation RDW Coeff of Faiza Plt Count MPV Immature Gran % (Auto) Neut % (Auto) Lymph % (Auto) [place] % (Auto) Eos % (Auto) Baso % (Auto) Neut # (Auto) Lymph # (Auto) [place] # (Auto) Eos # (Auto) Baso # (Auto) Immature Gran # (Auto) Sodium Potassium Chloride Carbon Dioxide Anion Gap BUN Creatinine Est Cr Clr Drug Dosing Est GFR ( Amer) Est GFR (Non-Af Amer) BUN/Creatinine Ratio Glucose POC Glucose 253 H 201 H Calcium Magnesium Stl C. diff Tox B Gene Negative Cdiff Gene 07/08/20 07/09/20 07/09/20 20:15 05:57 05:57 WBC 15.41 H RBC 3.68 L Hgb 11.8 L Hct 35.3 L MCV 95.9 MCH 32.1 MCHC 33.4 RDW Std Deviation 43.8 RDW Coeff of Faiza 12.4 Plt Count 292 MPV 11.1 H Immature Gran % (Auto) 0.5 Neut % (Auto) 72.5 Lymph % (Auto) 17.5 [place] % (Auto) 9.1 Eos % (Auto) 0.3 Baso % (Auto) 0.1 Neut # (Auto) 11.17 H Lymph # (Auto) 2.69 [place] # (Auto) 1.41 H Eos # (Auto) 0.04 Baso # (Auto) 0.02 Immature Gran # (Auto) 0.08 H Sodium 136 Potassium 3.9 Chloride 101 Carbon Dioxide 28 Anion Gap 7.0 BUN 24 H Creatinine 1.23 Est Cr Clr Drug Dosing 64.2 Est GFR ( Amer) 63.0 Est GFR (Non-Af Amer) 54.3 BUN/Creatinine Ratio 19.7 Glucose 157 H POC Glucose 190 H Calcium 9.7 Magnesium 2.3 Stl C. diff Tox B Gene 07/09/20 07:37 WBC RBC Hgb Hct MCV MCH MCHC RDW Std Deviation RDW Coeff of Faiza Plt Count MPV Immature Gran % (Auto) Neut % (Auto) Lymph % (Auto) [place] % (Auto) Eos % (Auto) Baso % (Auto) Neut # (Auto) Lymph # (Auto) [place] # (Auto) Eos # (Auto) Baso # (Auto) Immature Gran # (Auto) Sodium Potassium Chloride Carbon Dioxide Anion Gap BUN Creatinine Est Cr Clr Drug Dosing Est GFR ( Amer) Est GFR (Non-Af Amer) BUN/Creatinine Ratio Glucose POC Glucose 169 H Calcium Magnesium Stl C. diff Tox B Gene
[2020-07-09] MEDS: cefTRIAXone SODIUM 2,000 MG in DEXTROSE 5% 50 ML IV SCH (11:17)
[2020-07-09] MEDS: ACETAMINOPHEN 325 MG TAB PO PRN (17:33)
[2020-07-09] MEDS: TAMSULOSIN HCL 0.4 MG CAP PO SCH (17:34)
[2020-07-09] MEDS: PRAVASTATIN SOD 20 MG TAB PO SCH (21:01)
[2020-07-10 03:42] LABS: Codeine Urine NEGATIVE ng/mL (<50); Hydrocodone Urine 1340 ng/mL (<50); Hydromor Urine 367 ng/mL (<50); Morphine Urine 1080 ng/mL (<50); Norhydrocodone Conf Ur 2160 ng/mL (<50); Noroxycodone Urine 475 ng/mL (<50); Oxycodone Urine 190 ng/mL (<50); Oxymorph Urine 107 ng/mL (<50)
[2020-07-10] MEDS: HEPARIN SOD 5,000 UNIT/0.5 ML VIAL SQ SCH ×3 (05:38→21:13)
[2020-07-10 06:59] LABS: Hematocrit (blood only) 32.5 % (42-52); Hemoglobin 11.4 g/dL (14.0-18.0); Mean Corpuscular Hemoglobin 32.9 pg (25-34); Mean Corpuscular Hgb Conc 35.1 g/dL (32-36); Mean Corpuscular Volume 93.7 fL (80-100); Mean Platelet Volume 11.5 fL (7.4-10.4); Platelet Count 236 K/uL (130-400); RDW Coefficient of Variation 12.3 % (11.5-14.5); RDW Standard Deviation 41.6 fL (36.4-46.3); Red Blood Count 3.47 M/uL (4.7-6.1); White Blood Count 14.31 K/uL (4.8-10.8)
[2020-07-10 07:35] LABS: BUN Creatinine Ratio 22.4 (10-20); Calcium 9.8 mg/dl (8.5-10.1); Creatinine Clr Calc Pharmacy 62.7 ml/min; Est GFR (African American) 61.2; Est GFR (Non-African American) 52.8; Potassium 3.9 mmol/L (3.5-5.1)
[2020-07-10] MEDS: MULTIVITAMIN TAB PO SCH (08:46)
[2020-07-10] MEDS: INSULIN GLARGINE SOLOSTAR 100 UNITS/ML 3 ML PEN SQ SCH ×2 (08:47→21:11)
[2020-07-10] MEDS: lisinopril 5 MG TAB PO SCH (08:48)
[2020-07-10] MEDS: CITALOPRAM 20 MG TAB PO SCH (08:48)
[2020-07-10] MEDS: SPIRONOLACTONE 12.5 MG TAB PO SCH (08:48)
[2020-07-10] MEDS: PANTOprazole 40 MG TAB PO SCH (08:48)
[2020-07-10] MEDS: ASPIRIN 81 MG ECTAB PO SCH (08:48)
[2020-07-10] MEDS: amLODIPine BESYLATE 5 MG TAB PO SCH (08:49)
[2020-07-10] MEDS: INSULIN ASPART 100 UNITS/ML 3 ML PEN SC SCH ×4 (08:49→21:11)
[2020-07-10] MEDS: HYDROcodone/ACETAMINOPHEN 10/325 TAB PO PRN ×2 (09:26→21:12)
--- NOTE | 2020-07-10 10:53 | XRay Report ---
XR chest 1V portable CLINICAL HISTORY: Assess for aspiration COUGH COMPARISON STUDY: 07/07/2020 FINDINGS: The heart is enlarged. There is no failure. There are minor right basilar opacities, likely atelectatic although an infectious/inflammatory processes could appear similar[ IMPRESSION: 1. Minor right basilar opacities, statistically atelectatic 2. Cardiomegaly ACT 112: Negative or not required by law. Electronically signed by: Buddy Garza M.D. 07/10/2020 10:52 AM
--- NOTE | 2020-07-10 10:54 | XRay Report ---
XR knee RT 1 or 2V routine CLINICAL HISTORY: Right knee pain and swelling COMPARISON STUDY: None. FINDINGS: 2 views of the right knee were submitted for review. 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 The hardware is intact. No abnormal periprosthetic lucency. No fracture or dislocation within the right knee. There is a moderate joint effusion and mild anterior soft tissue swelling. Small ossific densities at the distal quadriceps tendon are likely chronic. There is also thickening at the distal quadriceps tendon. There is mild patella baja. Therefore, these findings could represent a quadricep s tendon injury/tear. IMPRESSION: 1. Moderate joint effusion. 2. Thickening of the distal quadriceps tendon with mild patella baja. Therefore, this could represent a quadriceps tendon injury/tear. ACT 112: Negative or not required by law. Electronically signed by: Fernando Kirkpatrick M.D. 07/10/2020 10:53 AM
--- NOTE | 2020-07-10 11:06 | Hospitalist Progress Note ---
Date of Service July 10, 2020 Assessment & Plan (1) Asymptomatic hypertensive urgency: Ambulatory dysfunction Mechanical fall -Head CT:There is no hemorrhage, mass effect, or evidence of acute territorial ischemia by CT criteria. -Neck CT:There is no evidence of fracture or subluxation involving the cervical spine. Osteopenia and spondylotic change as above. -CXR: Cardiomegaly with no acute cardiopulmonary abnormality. -Face CT:There is no evidence of facial bone fracture. -Right Shoulder X ray:Osteopenia and degenerative change as above with no acute bony abnormality identified. -Right Rib X ray: No right-sided rib fractures identified. Continue Fall Precautions Needs rehab per PT evaluation once medically stable Had cough some days ago. Had fever on 07/08/20 Based on speech evaluation, there is possibility of some aspiration Also has leukocytosis. With reported worsening of chronic right knee pain, there is a possibility also of inflammatory joint vs septic joint Will get XR of knee and get ortho evaluation Other infectious work-up currently negative and antibiotics discontinued -CXR from 07/07/20:Cardiomegaly and mild basilar atelectasis. -KUB:Nonobstructive bowel gas pattern. -Negative COVID Screen -Normal Lactate, Procalcitonin 0.15- 0.19 -Blood/Urine Cx:Negative -Stool negative for C diff Continue minced and moist diet per speech recommendations. Continue aspiration precautions Hypertensive Urgency Likely situational secondary to pain Continue amlodipine, lisinopril Also on tamsulosin BP getting better controlled Monitor Chronic diastolic heart failure Last EF 55 to 60%, TTE 2019 Continue Aldactone Resume torsemide tomorrow at 20mg daily Monitor Volume status CKD III Baseline Cr ~ Mid 1s Cr: 1.23 Monitor renal function Avoid Nephrotoxic agents as able Nonocclusive CAD Continue aspirin, statin Hyperlipidemia Continue statin DM II HbA1C: 10.2 Hold PO meds Continue insulin therapy while hospitalized Monitor blood glucose levels H/O Prostate cancer S/P Radiation, Lupron DVT Px: Heparin SQ Code Status Full code Disposition Needs Rehab placement when medically stable Family: Patient 's Brother: [phone] Admission and Anticipated Discharge Date Admission Date: July 07, 2020 Subjective Patient seen and examined. Patient reports an increasing right knee pain. Reports right knee pain is chronic but has gotten worse Patient was reported not to have participated much in PT yesterday due to pain. Denies chills, nausea vomiting Last documented fever of 38.4 hours 2 days ago. T-max of yesterday at 37.8 No reported cough per RN with feeding especially with change to minced and moist diet Physical Exam Constitutional: + well hydrated and + obese; no acute distress Eyes: PERRL, conjunctivae normal, anicteric sclerae ENMT: external ear and nose normal, oropharynx normal Respiratory: normal respiratory effort, lungs clear to auscultation Cardiovascular: Rate/Rhythm: regular rate and regular rhythm Gastrointestinal (Abdomen): normal bowel sounds, soft, nontender, no hepatosplenomegaly Musculoskeletal: Old scar on anterior right knee Right knee appears bigger than left with tenderness on palpation. No erythema. Also has pain with passive flexion of right knee. Neurologic: PERRL, EOMI, accommodation nl, no face palsy, no dysarthria Psychiatric: Orientation: alert Oriented to person and place only Results & Data Results & Data ([place]) Vital Signs (Past 12 Hours) Vital Signs Temp Pulse Pulse Resp BP Pulse Ox 07/10/20 07:58 36.7 C 84 18 150/77 H 94 07/10/20 07:29 90 07/10/20 03:45 37.1 C 85 20 175/92 H 94 07/10/20 00:00 76 07/09/20 23:25 36.7 C 76 20 150/76 H 95 Laboratory Results Laboratory Results - last 24 hr 07/06/20 07/09/20 07/09/20 11:14 10:34 11:44 WBC RBC Hgb Hct MCV MCH MCHC RDW Std Deviation RDW Coeff of Faiza Plt Count MPV ESR Sodium Potassium Chloride Carbon Dioxide Anion Gap BUN Creatinine Est Cr Clr Drug Dosing Est GFR ( Amer) Est GFR (Non-Af Amer) BUN/Creatinine Ratio Glucose POC Glucose 229 H Calcium C-Reactive Protein Procalcitonin 0.19 U Codeine Confrm GC/MS NEGATIVE Ur Morphine (GC/MS) 1080 H Ur Hydrocodone (GC/MS) 1340 H Ur Norhydrocodone 2160 H Ur Noroxycodone 475 H Urine Oxycodone (GC/MS) 190 H U Oxymorphone GC/MS 107 H Ur Hydromorphone (GC/MS) 367 H Drug Screen Comment SEE NOTE 0207/09/20 07/10/20 16:36 20:50 05:59 WBC 14.31 H RBC 3.47 L Hgb 11.4 L Hct 32.5 L MCV 93.7 MCH 32.9 MCHC 35.1 RDW Std Deviation 41.6 RDW Coeff of Faiza 12.3 Plt Count 236 MPV 11.5 H ESR Sodium Potassium Chloride Carbon Dioxide Anion Gap BUN Creatinine Est Cr Clr Drug Dosing Est GFR ( Amer) Est GFR (Non-Af Amer) BUN/Creatinine Ratio Glucose POC Glucose 202 H 228 H Calcium C-Reactive Protein Procalcitonin U Codeine Confrm GC/MS Ur Morphine (GC/MS) Ur Hydrocodone (GC/MS) Ur Norhydrocodone Ur Noroxycodone Urine Oxycodone (GC/MS) U Oxymorphone GC/MS Ur Hydromorphone (GC/MS) Drug Screen Comment 07/10/20 07/10/20 07/10/20 05:59 05:59 05:59 WBC RBC Hgb Hct MCV MCH MCHC RDW Std Deviation RDW Coeff of Faiza Plt Count MPV ESR Pending Sodium 135 L Potassium 3.9 Chloride 101 Carbon Dioxide 27 Anion Gap 7.0 BUN 28 H Creatinine 1.26 Est Cr Clr Drug Dosing 62.7 Est GFR ( Amer) 61.2 Est GFR (Non-Af Amer) 52.8 BUN/Creatinine Ratio 22.4 H Glucose 171 H POC Glucose Calcium 9.8 C-Reactive Protein Pending Procalcitonin U Codeine Confrm GC/MS Ur Morphine (GC/MS) Ur Hydrocodone (GC/MS) Ur Norhydrocodone Ur Noroxycodone Urine Oxycodone (GC/MS) U Oxymorphone GC/MS Ur Hydromorphone (GC/MS) Drug Screen Comment 07/10/20 07:48 WBC RBC Hgb Hct MCV MCH MCHC RDW Std Deviation RDW Coeff of Faiza Plt Count MPV ESR Sodium Potassium Chloride Carbon Dioxide Anion Gap BUN Creatinine Est Cr Clr Drug Dosing Est GFR ( Amer) Est GFR (Non-Af Amer) BUN/Creatinine Ratio Glucose POC Glucose 181 H Calcium C-Reactive Protein Procalcitonin U Codeine Confrm GC/MS Ur Morphine (GC/MS) Ur Hydrocodone (GC/MS) Ur Norhydrocodone Ur Noroxycodone Urine Oxycodone (GC/MS) U Oxymorphone GC/MS Ur Hydromorphone (GC/MS) Drug Screen Comment
[2020-07-10] MEDS ORDERED: ETHYL CHLORIDE AER PER SPRAY 100 ML CAN EXT ONE (11:30)
--- NOTE | 2020-07-10 14:10 | Orthopedic Consultation ---
Date of Consultation July 10, 2020 Assessment & Plan (1) Right knee pain: Patient is status post right knee arthroplasty over 20 years ago. X-ray of the knee reviewed and shows no obvious fractures or lucencies. Moderate effusion noted. Notably, the sed rate and CRP are elevated. His white count is somewhat elevated as well. I discussed the case with Dr. Herzog. We will plan on right knee aspiration to rule out infection. I discussed this with the patient who is in agreement for right knee aspiration. Nursing staff is present. The right knee was identified as the correct aspiration site. Aspiration site at the superior lateral aspect was chosen and swabbed with 3 alcohol swabs and 3 Betadine swabs and let the dry. Ethyl chloride was then used to anesthetize the skin. An 18-gauge spinal needle was then inserted into the suprapatellar pouch where 21 cc of bright yellow fluid was aspirated. An additional 14 cc of yellow fluid was aspirated that was slightly blood-tinged at the end. The needle was then removed and pressure was applied to the aspiration site for approximately 60 to 90 seconds. No bleeding was noted and a small bandage was applied to the aspiration site. The initial aspiration collection was sent to the lab for aerobic and anaerobic culture, cell count, and crystal analysis. We will continue to follow the lab results and microbiology results. The color of the fluid and the clarity does not overtly look infectious however we will see how the cell count and the Gram stain look in the next 24 hours. Supervising Physician Co-Signing Physician Notes Patient was seen and examined. I agree with ANDREA Weeks's note as above. He had a right total knee arthroplasty many years ago and has acute right knee pain, swelling, and warmth. No erythema or induration, but he does have pain on range of motion. This is certainly concerning for periprosthetic infection, especially given his laboratory studies including a sed rate of 72, CRP of 14, and hemoglobin A1c of 10.2. Fortunately, knee aspirate did not show any gross purulent fluid. White blood cell count of the knee aspirate fluid showed only 10,732 white blood cells, with gout crystals noted. Gram stain and culture still pending. Patient denies any known history of gout. With the reassuring fluid aspirate results, will not plan on any surgical intervention at this point, but we will have to watch the Gram stain and culture results, and adjust plans accordingly. History of Present Illness Reason for Consultation: Right knee pain Attending Physician: Sri Eubanks MD History of Present Illness Patient is an 80-year-old white male admitted on the of this month after having a short fall from his chair. Patient's medical history includes chronic diastolic heart failure (EF 55 to 60%, TTE 2018), patient on the dry side history nonocclusive CAD as per records hyperlipidemia on statin Rx DM2 insulin requiring, suboptimal control as of recent outpatient hemoglobin A1c of 02 March 2020 ARF on CRI, chronic anemia, hemoglobin at baseline, prostate cancer status post radiation, Lupron Rx,Functional disability, past tobacco abuse. Pt has a h/o chronic pain. He has had some bilateral knee discomfort but this worsened on the right side during his stay. He was noted that his right knee became swollen and increasingly tender. We have been asked to see him for this. Patient has a history of right total knee arthroplasty 20 + years ago. Patient does not remember who the surgeon was. He states that currently he is unable to bear weight on the right knee and is having pain with range of motion. He denies chills but nursing states that he has been running temperatures in the 37.8-38 range off and on. Allergies Allergy/AdvReac Type Severity Reaction Status Date / Time No Known Allergies Verified 07/05/20 23:35 Home Medications Medication Instructions Recorded Confirmed Type Lantus Solostar U-100 Insulin 35 units SUBCUT BID 07/31/18 07/07/20 History ascorbic acid (vitamin C) 500 mg PO DAILY 07/31/18 07/05/20 History aspirin 81 mg PO DAILY 07/31/18 07/05/20 History citalopram 20 mg PO DAILY 07/31/18 07/05/20 History cod liver oil 1 cap PO DAILY 07/31/18 07/05/20 History esomeprazole magnesium 40 mg PO DAILY 07/31/18 07/05/20 History glipizide 5 mg PO BIDM 07/31/18 07/05/20 History glipizide 10 mg PO BIDM 07/31/18 07/05/20 History guaifenesin 600 mg PO BID PRN 07/31/18 07/05/20 History hydrocodone-acetaminophen 1 tab PO TID PRN 07/31/18 07/05/20 History qhprr-halwf-2-goj-uwb-cfkfyr 1 cap PO DAILY 07/31/18 07/05/20 History [krill oil] lidocaine [Lidoderm] 1 patch TOPICAL DAILY PRN 07/31/18 07/05/20 History omega 5-oqu-qhm-fish oil 1 cap PO DAILY 07/31/18 07/05/20 History potassium chloride 10 meq PO DAILY 07/31/18 07/05/20 History pravastatin [Pravachol] 20 mg PO HS 07/31/18 07/05/20 History spironolactone 12.5 mg PO DAILY 07/31/18 07/05/20 History tamsulosin 0.8 mg PO DAILY@1800 07/31/18 07/06/20 History torsemide 40 mg PO DAILY #0 tab 08/03/18 07/05/20 Rx multivitamin 1 tab PO DAILY 07/05/20 07/05/20 History dulaglutide [Trulicity] 3 mg SUBCUT Q7D 07/07/20 07/07/20 History lisinopril 5 mg PO DAILY 07/07/20 07/07/20 History metformin 500 mg PO BID 07/07/20 07/07/20 History Patient History Medical History Chronic back pain Chronic diastolic heart failure Diaphragmatic hernia Diverticulitis GERD (gastroesophageal reflux disease) Hyperlipidemia Hypertension Narcotic dependence Prostate cancer "Prostate, adenocarcinoma, cristina 3 + 3, PSA 6.66, cT1c, group I TREATMENT: Prostate seed implant - Cesium 131 - 06/30/2011 - monotherapy alone, Lupron for 6 months prior to implantation." Type 2 diabetes mellitus Venous insufficiency Surgical History History of hip replacement History of knee replacement Status post hernia repair Family History Mother Stroke Social History Smoking Status: Former smoker Second Hand Exposure: No; Do You Dip or Chew Tobacco: Yes; Tobacco Cessation Education Requested by Patient: No Hx Alcohol Use: Yes (quit) Alcohol Intake Frequency Comment: history of daily use, recently quit Hx Substance Use: No Preferred Language: Guinean Communication Ability: Impaired 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 He states this is comfortable for him. I am able to have him extend the knee at this time and internally rotate the hip. He is in some noticeable discomfort when he is doing range of motion of the knee. The knee is moderately swollen compared to the left. The left knee does have some mild tenderness on palpation however his right knee is exquisitely tender over the top of the patella and on the lateral aspect. Gentle range of motion of the right knee does elicit a painful response. The knee is not erythematous. Bearing into the left knee, it feels a little bit warmer to the touch. The knee feels stable with the gentle range of motion. He has no tenderness in the calves or in the right ankle or toes. He is moving his ankle and toes well without difficulty. No complaints of right hip pain. Left lower extremity appears to be unaffected and has mild tenderness as noted in the left knee but nothing like the right knee. There is minimal swelling of the left knee at this time. Upper extremities appear to be unaffected this time as he is able to go through gentle range of motion with his shoulders, elbows, and wrists. He does have some general aches when going through the gentle range of motion. Results & Data ([facility]) Vital Signs (Past 12 Hours) Vital Signs Temp Pulse Pulse Resp BP Pulse Ox 07/10/20 11:34 36.6 C 95 H 22 171/72 H 93 07/10/20 07:58 36.7 C 84 18 150/77 H 94 07/10/20 07:29 90 07/10/20 03:45 37.1 C 85 20 175/92 H 94 Diagnostic Findings Patient: RALPH HAQUE CAdmit Date: 07/07/20#: [id number] [facility] RDAcct ID:[id number]: Date: 1940City Zip: [place] [address]Ztu: [birth year]Location: 2NSex: MRoom/Bed: [id number] Phy: Sri Eubanks MDDiagnosis: HTN URGPri Phy: Latha Gómez, DOService Date: 07/10/20Fam Phy:Interpreting Phy: Fernando Kirkpatrick MDAdmit Phy: Ken Gaitan MD Ordering Phy: Sri Eubanks MD cc: ~ XR knee RT 1 or 2V routine CLINICAL HISTORY: Right knee pain and swelling COMPARISON STUDY: None. FINDINGS: 2 views of the right knee were submitted for review. There is a right total knee arthroplasty. The hardware is intact. No abnormal periprosthetic lucency. No fracture or dislocation within the right knee. There is a moderate joint effusion and mild anterior soft tissue swelling. Small ossific densities at the distal quadriceps tendon are likely chronic. There is also thickening at the distal quadriceps tendon. There is mild patella baja. Therefore, these findings could represent a quadriceps tendon injury/tear. IMPRESSION: 1. Moderate joint effusion. 2. Thickening of the distal quadriceps tendon with mild patella baja. Therefore, this could represent a quadriceps tendon injury/tear.
[2020-07-10] MEDS: HYDROmorphone INJ 0.5 MG/0.5 ML SYR IV PRN (14:14)
[2020-07-10 15:39] LABS: Appearance Synovial Fluid CLOUDY; Color Synovial Fluid YELLOW; RBC Synovial Fluid (A) < 3000 /uL; Source Synovial Fluid KNEE; WBC Synovial Fluid (A) 10732 /ul (0-200)
[2020-07-10] MEDS: TAMSULOSIN HCL 0.4 MG CAP PO SCH (17:28)
[2020-07-10] MEDS: ACETAMINOPHEN 325 MG TAB PO PRN (17:29)
[2020-07-10] MEDS: cefTRIAXone SODIUM 2,000 MG in DEXTROSE 5% 50 ML IV SCH (17:30)
[2020-07-10] MEDS: predniSONE 20 MG TAB PO SCH (19:22)
[2020-07-10] MEDS: PRAVASTATIN SOD 20 MG TAB PO SCH (21:13)
[2020-07-11] MEDS: HEPARIN SOD 5,000 UNIT/0.5 ML VIAL SQ SCH ×3 (05:40→21:10)
[2020-07-11 06:21] LABS: Hematocrit (blood only) 34.1 % (42-52); Hemoglobin 11.5 g/dL (14.0-18.0); Mean Corpuscular Hgb Conc 33.7 g/dL (32-36); Mean Platelet Volume 11.4 fL (7.4-10.4); Platelet Count 295 K/uL (130-400); RDW Coefficient of Variation 12.3 % (11.5-14.5); RDW Standard Deviation 42.5 fL (36.4-46.3); Red Blood Count 3.59 M/uL (4.7-6.1); White Blood Count 15.21 K/uL (4.8-10.8)
[2020-07-11] MEDS: INSULIN ASPART 100 UNITS/ML 3 ML PEN SC SCH ×4 (06:34→21:08)
[2020-07-11 06:55] LABS: BUN Creatinine Ratio 25.4 (10-20); Calcium 9.7 mg/dl (8.5-10.1); Creatinine Clr Calc Pharmacy 52.6 ml/min; Est GFR (African American) 49.9; Est GFR (Non-African American) 43.1; Potassium 4.7 mmol/L (3.5-5.1)
[2020-07-11] MEDS: predniSONE 20 MG TAB PO SCH (08:23)
[2020-07-11] MEDS: INSULIN GLARGINE SOLOSTAR 100 UNITS/ML 3 ML PEN SQ SCH ×2 (08:29→21:07)
[2020-07-11] MEDS: MULTIVITAMIN TAB PO SCH (08:30)
[2020-07-11] MEDS: lisinopril 5 MG TAB PO SCH (08:30)
[2020-07-11] MEDS: amLODIPine BESYLATE 5 MG TAB PO SCH (08:30)
[2020-07-11] MEDS: ASPIRIN 81 MG ECTAB PO SCH (08:30)
[2020-07-11] MEDS: PANTOprazole 40 MG TAB PO SCH (08:30)
[2020-07-11] MEDS: CITALOPRAM 20 MG TAB PO SCH (08:30)
[2020-07-11] MEDS: SPIRONOLACTONE 12.5 MG TAB PO SCH (08:30)
[2020-07-11] MEDS ORDERED: TORSEMIDE 10 MG TAB PO SCH (09:00)
--- NOTE | 2020-07-11 10:15 | Hospitalist Progress Note ---
Date of Service July 11, 2020 Assessment & Plan (1) Asymptomatic hypertensive urgency: Ambulatory dysfunction Mechanical fall -Head CT:There is no hemorrhage, mass effect, or evidence of acute territorial ischemia by CT criteria. -Neck CT:There is no evidence of fracture or subluxation involving the cervical spine. Osteopenia and spondylotic change as above. -CXR: Cardiomegaly with no acute cardiopulmonary abnormality. -Face CT:There is no evidence of facial bone fracture. -Right Shoulder X ray:Osteopenia and degenerative change as above with no acute bony abnormality identified. -Right Rib X ray: No right-sided rib fractures identified. Continue Fall Precautions Needs rehab per PT evaluation once medically stable Right Knee Pain Acute Gout Rule out septic arthritis in view of fevers, leukocytosis. Aspirate show urate crystals, 10K WBC Will continue ceftriaxone for now until aspirate culture results Continue Prednisone for acute gout Other infectious work-up currently negative and antibiotics discontinued -CXR from 07/07/20:Cardiomegaly and mild basilar atelectasis. -KUB:Nonobstructive bowel gas pattern. -Negative COVID Screen -Normal Lactate, Procalcitonin 0.15- 0.19 -Blood/Urine Cx:Negative -Stool negative for C diff Continue minced and moist diet per speech recommendations. Continue aspiration precautions Hypertensive Urgency Likely situational secondary to pain Continue amlodipine, lisinopril Also on tamsulosin BP getting better controlled Monitor Chronic diastolic heart failure Last EF 55 to 60%, TTE 2019 Continue Aldactone Holding torsemide for now Monitor Volume status CKD III Baseline Cr ~ Mid 1s Cr: 1.49 today Monitor renal function Avoid Nephrotoxic agents as able Nonocclusive CAD Continue aspirin, statin Hyperlipidemia Continue statin DM II HbA1C: 10.2 Hold PO meds Continue insulin therapy while hospitalized Monitor blood glucose levels H/O Prostate cancer S/P Radiation, Lupron DVT Px: Heparin SQ Code Status Full code Disposition Needs Rehab placement when medically stable Family: Patient 's Brother: [phone] Called Brother and gave him updates Admission and Anticipated Discharge Date Admission Date: July 07, 2020 Subjective Patient seen and examined Spiked fever yesterday. Antibiotics were resumed Ortho evaluated yesterday and aspirated synovial fluid which showed WBC, negative birefringence -urate He was started on prednisone. Right pain much improved today Patient has no complaints at this time Physical Exam Constitutional: + well hydrated and + obese; no acute distress Eyes: PERRL, conjunctivae normal, anicteric sclerae ENMT: external ear and nose normal, oropharynx normal Respiratory: normal respiratory effort, lungs clear to auscultation Cardiovascular: Rate/Rhythm: regular rate and regular rhythm s1 s2 Gastrointestinal (Abdomen): normal bowel sounds, soft, nontender, no hepatosplenomegaly Musculoskeletal: Right knee mild swelling, tenderness remarkably improved compared to yesterday Neurologic: PERRL, EOMI, accommodation nl, no face palsy, no dysarthria Psychiatric: Orientation: alert and oriented x 3 Results & Data Results & Data ([facility]) Vital Signs (Past 12 Hours) Vital Signs Temp Pulse Resp BP Pulse Ox 07/11/20 08:01 36.7 C 67 20 149/72 H 94 07/11/20 04:00 36.9 C 77 18 145/74 H 94 07/11/20 00:02 37.2 C 80 16 161/72 H 94 Laboratory Results Laboratory Results - last 24 hr 07/10/20 07/10/20 07/10/20 05:59 05:59 11:16 WBC RBC Hgb Hct MCV MCH MCHC RDW Std Deviation RDW Coeff of Faiza Plt Count MPV ESR 72 H Sodium Potassium Chloride Carbon Dioxide Anion Gap BUN Creatinine Est Cr Clr Drug Dosing Est GFR ( Amer) Est GFR (Non-Af Amer) BUN/Creatinine Ratio Glucose POC Glucose 188 H Calcium C-Reactive Protein 14.50 H Synovial Source Synovial Color Synovial Appearance Synovial WBC Synovial RBC Synovial Polynuclear % Synovial Mononuclear % Synovial Crystals 07/10/20 07/10/20 07/10/20 14:05 14:05 16:34 WBC RBC Hgb Hct MCV MCH MCHC RDW Std Deviation RDW Coeff of Faiza Plt Count MPV ESR Sodium Potassium Chloride Carbon Dioxide Anion Gap BUN Creatinine Est Cr Clr Drug Dosing Est GFR ( Amer) Est GFR (Non-Af Amer) BUN/Creatinine Ratio Glucose POC Glucose 205 H Calcium C-Reactive Protein Synovial Source KNEE Synovial Color YELLOW Synovial Appearance CLOUDY Synovial WBC 01272 H Synovial RBC < 3000 Synovial Polynuclear % 93.0 Synovial Mononuclear % 7.0 Synovial Crystals 07/10/20 07/11/20 07/11/20 20:56 00:18 05:50 WBC 15.21 H RBC 3.59 L Hgb 11.5 L Hct 34.1 L MCV 95.0 MCH 32.0 MCHC 33.7 RDW Std Deviation 42.5 RDW Coeff of Faiza 12.3 Plt Count 295 MPV 11.4 H ESR Sodium Potassium Chloride Carbon Dioxide Anion Gap BUN Creatinine Est Cr Clr Drug Dosing Est GFR ( Amer) Est GFR (Non-Af Amer) BUN/Creatinine Ratio Glucose POC Glucose 240 H 241 H Calcium C-Reactive Protein Synovial Source Synovial Color Synovial Appearance Synovial WBC Synovial RBC Synovial Polynuclear % Synovial Mononuclear % Synovial Crystals 07/11/20 07/11/20 05:50 06:27 WBC RBC Hgb Hct MCV MCH MCHC RDW Std Deviation RDW Coeff of Faiza Plt Count MPV ESR Sodium 134 L Potassium 4.7 D Chloride 101 Carbon Dioxide 24 Anion Gap 9.0 BUN 38 H Creatinine 1.49 H Est Cr Clr Drug Dosing 52.6 Est GFR ( Amer) 49.9 Est GFR (Non-Af Amer) 43.1 BUN/Creatinine Ratio 25.4 H Glucose 282 H POC Glucose 291 H Calcium 9.7 C-Reactive Protein Synovial Source Synovial Color Synovial Appearance Synovial WBC Synovial RBC Synovial Polynuclear % Synovial Mononuclear % Synovial Crystals
[2020-07-11] MEDS: cefTRIAXone SODIUM 2,000 MG in DEXTROSE 5% 50 ML IV SCH (16:30)
[2020-07-11] MEDS: TAMSULOSIN HCL 0.4 MG CAP PO SCH (17:10)
[2020-07-11] MEDS ORDERED: INSULIN HUMAN REGULAR PER UNIT 4 UNITS in SYRINGE 3.96 ML IV ONE (21:00)
[2020-07-11] MEDS: PRAVASTATIN SOD 20 MG TAB PO SCH (21:12)
[2020-07-12] MEDS: HEPARIN SOD 5,000 UNIT/0.5 ML VIAL SQ SCH ×3 (06:31→22:33)
[2020-07-12 07:01] LABS: Hematocrit (blood only) 32.7 % (42-52); Hemoglobin 11.1 g/dL (14.0-18.0); Mean Corpuscular Hemoglobin 31.8 pg (25-34); Mean Corpuscular Hgb Conc 33.9 g/dL (32-36); Mean Corpuscular Volume 93.7 fL (80-100); Platelet Count 311 K/uL (130-400); RDW Coefficient of Variation 12.2 % (11.5-14.5); RDW Standard Deviation 41.4 fL (36.4-46.3); Red Blood Count 3.49 M/uL (4.7-6.1); White Blood Count 16.03 K/uL (4.8-10.8)
[2020-07-12 07:37] LABS: BUN Creatinine Ratio 34.6 (10-20); Calcium 9.6 mg/dl (8.5-10.1); Creatinine Clr Calc Pharmacy 47.8 ml/min; Est GFR (African American) 44.5; Est GFR (Non-African American) 38.4; Potassium 4.6 mmol/L (3.5-5.1)
--- NOTE | 2020-07-12 08:23 | Hospitalist Progress Note ---
Date of Service July 12, 2020 Assessment & Plan (1) Asymptomatic hypertensive urgency: Ambulatory dysfunction Mechanical fall -Head CT:There is no hemorrhage, mass effect, or evidence of acute territorial ischemia by CT criteria. -Neck CT:There is no evidence of fracture or subluxation involving the cervical spine. Osteopenia and spondylotic change as above. -CXR: Cardiomegaly with no acute cardiopulmonary abnormality. -Face CT:There is no evidence of facial bone fracture. -Right Shoulder X ray:Osteopenia and degenerative change as above with no acute bony abnormality identified. -Right Rib X ray: No right-sided rib fractures identified. Continue Fall Precautions Needs rehab per PT evaluation once medically stable Right Knee Pain Acute Gout Rule out septic arthritis in view of fevers, leukocytosis. Aspirate show urate crystals, 10K WBC Will continue ceftriaxone for now until aspirate culture results finalizes. Preliminary negative so far Continue Prednisone for acute gout Other infectious work-up currently negative and antibiotics discontinued -CXR from 07/07/20:Cardiomegaly and mild basilar atelectasis. -KUB:Nonobstructive bowel gas pattern. -Negative COVID Screen -Normal Lactate, Procalcitonin 0.15- 0.19 -Blood/Urine Cx:Negative -Stool negative for C diff Continue minced and moist diet per speech recommendations. Continue aspiration precautions Hypertensive Urgency Likely situational secondary to pain Continue amlodipine, lisinopril Also on tamsulosin BP getting better controlled Monitor Chronic diastolic heart failure Last EF 55 to 60%, TTE 2019 Continue Aldactone Holding torsemide for now Monitor Volume status CKD III Baseline Cr ~ Mid 1s Cr is increasing. Currently 1.64 Had poor fluid intake yesterday Encourage oral fluid intake today. If still poor later in the day, will give gentle ivf Continue to hold torsemide Monitor renal function Avoid Nephrotoxic agents as able Nonocclusive CAD Continue aspirin, statin Hyperlipidemia Continue statin DM II HbA1C: 10.2 Hold PO meds Continue insulin therapy while hospitalized Will give extra lantus 5U to aid with glycemic control especially with prednisone for gout Continue sliding scale Monitor blood glucose levels H/O Prostate cancer S/P Radiation, Lupron DVT Px: Heparin SQ Code Status Full code Disposition Needs Rehab placement when medically stable Family: Patient 's Brother: [phone] Admission and Anticipated Discharge Date Admission Date: July 07, 2020 Subjective Patient seen and examined Reports mild right knee pain but improved. Denies any fevers, chills, nausea, vomiting Denies any cough, chest pain, shortness of breath Denies any abdominal pain, diarrhea Denies dysuria or frequency Physical Exam Constitutional: + well hydrated and + obese; no acute distress Eyes: PERRL, conjunctivae normal, anicteric sclerae ENMT: external ear and nose normal, oropharynx normal Respiratory: normal respiratory effort, lungs clear to auscultation Cardiovascular: Rate/Rhythm: regular rate and regular rhythm Gastrointestinal (Abdomen): normal bowel sounds, soft, nontender, no hepatosplenomegaly Musculoskeletal: Mild right knee swelling and pain with flexion (much improved) Neurologic: PERRL, EOMI, accommodation nl, no face palsy, no dysarthria Psychiatric: Orientation: alert and oriented x 3 Results & Data Results & Data ([facility]) Vital Signs (Past 12 Hours) Vital Signs Temp Pulse Pulse Resp BP BP Pulse Ox 07/12/20 07:22 64 07/12/20 07:14 36.7 C 67 18 162/77 H 96 07/12/20 04:26 36.6 C 75 16 159/74 H 97 07/12/20 01:55 58 L 07/11/20 23:46 36.7 C 65 20 137/69 97 Laboratory Results Laboratory Results - last 24 hr 07/11/20 07/11/20 07/11/20 11:17 16:31 16:32 WBC RBC Hgb Hct MCV MCH MCHC RDW Std Deviation RDW Coeff of Faiza Plt Count MPV ESR Sodium Potassium Chloride Carbon Dioxide Anion Gap BUN Creatinine Est Cr Clr Drug Dosing Est GFR ( Amer) Est GFR (Non-Af Amer) BUN/Creatinine Ratio Glucose POC Glucose 276 H 396 H* 392 H* Calcium C-Reactive Protein 07/11/20 07/11/20 07/12/20 20:14 20:16 06:42 WBC 16.03 H RBC 3.49 L Hgb 11.1 L Hct 32.7 L MCV 93.7 MCH 31.8 MCHC 33.9 RDW Std Deviation 41.4 RDW Coeff of Faiza 12.2 Plt Count 311 MPV 11.0 H ESR Sodium Potassium Chloride Carbon Dioxide Anion Gap BUN Creatinine Est Cr Clr Drug Dosing Est GFR ( Amer) Est GFR (Non-Af Amer) BUN/Creatinine Ratio Glucose POC Glucose 389 H* 386 H* Calcium C-Reactive Protein 07/12/20 07/12/20 07/12/20 06:42 06:42 06:42 WBC RBC Hgb Hct MCV MCH MCHC RDW Std Deviation RDW Coeff of Faiza Plt Count MPV ESR > 90 H Sodium 134 L Potassium 4.6 Chloride 102 Carbon Dioxide 26 Anion Gap 6.0 BUN 57 H Creatinine 1.64 H Est Cr Clr Drug Dosing 47.8 Est GFR ( Amer) 44.5 Est GFR (Non-Af Amer) 38.4 BUN/Creatinine Ratio 34.6 H Glucose 283 H POC Glucose Calcium 9.6 C-Reactive Protein 13.40 H 07/12/20 07:37 WBC RBC Hgb Hct MCV MCH MCHC RDW Std Deviation RDW Coeff of Faiza Plt Count MPV ESR Sodium Potassium Chloride Carbon Dioxide Anion Gap BUN Creatinine Est Cr Clr Drug Dosing Est GFR ( Amer) Est GFR (Non-Af Amer) BUN/Creatinine Ratio Glucose POC Glucose 275 H Calcium C-Reactive Protein
[2020-07-12] MEDS: PANTOprazole 40 MG TAB PO SCH (08:58)
[2020-07-12] MEDS: amLODIPine BESYLATE 5 MG TAB PO SCH (08:58)
[2020-07-12] MEDS: lisinopril 5 MG TAB PO SCH (08:58)
[2020-07-12] MEDS: INSULIN ASPART 100 UNITS/ML 3 ML PEN SC SCH ×4 (08:59→21:18)
[2020-07-12] MEDS: ASPIRIN 81 MG ECTAB PO SCH (09:01)
[2020-07-12] MEDS: SPIRONOLACTONE 12.5 MG TAB PO SCH (09:02)
[2020-07-12] MEDS: INSULIN GLARGINE SOLOSTAR 100 UNITS/ML 3 ML PEN SQ SCH ×2 (09:02→21:18)
[2020-07-12] MEDS: CITALOPRAM 20 MG TAB PO SCH (09:02)
[2020-07-12] MEDS: predniSONE 20 MG TAB PO SCH (09:02)
[2020-07-12] MEDS: MULTIVITAMIN TAB PO SCH (09:02)
[2020-07-12] MEDS: HYDROcodone/ACETAMINOPHEN 10/325 TAB PO PRN (09:14)
[2020-07-12] MEDS ORDERED: LANTUS PER UNIT CHARGE SQ STA (09:42)
[2020-07-12] MEDS ORDERED: INSULIN GLARGINE SOLOSTAR 100 UNITS/ML 3 ML PEN SQ STA (09:51)
[2020-07-12] MEDS: COLCHICINE 0.6 MG TAB PO SCH ×2 (10:35→21:15)
[2020-07-12] MEDS: TAMSULOSIN HCL 0.4 MG CAP PO SCH (17:26)
[2020-07-12] MEDS: cefTRIAXone SODIUM 2,000 MG in DEXTROSE 5% 50 ML IV SCH (17:26)
[2020-07-12] MEDS: PRAVASTATIN SOD 20 MG TAB PO SCH (21:15)
[2020-07-13] MEDS: HEPARIN SOD 5,000 UNIT/0.5 ML VIAL SQ SCH ×3 (06:04→20:48)
[2020-07-13 07:00] LABS: Hematocrit (blood only) 33.3 % (42-52); Hemoglobin 11.4 g/dL (14.0-18.0); Mean Corpuscular Hgb Conc 34.2 g/dL (32-36); Mean Corpuscular Volume 93.5 fL (80-100); Mean Platelet Volume 10.9 fL (7.4-10.4); Platelet Count 362 K/uL (130-400); RDW Standard Deviation 40.9 fL (36.4-46.3); Red Blood Count 3.56 M/uL (4.7-6.1); White Blood Count 13.46 K/uL (4.8-10.8)
[2020-07-13 07:31] LABS: BUN Creatinine Ratio 40.1 (10-20); Creatinine Clr Calc Pharmacy 55.4 ml/min; Est GFR (African American) 52.9; Est GFR (Non-African American) 45.7; Potassium 4.7 mmol/L (3.5-5.1)
[2020-07-13 07:32] LABS: C Reactive Protein 6.77 mg/dl (0-0.29)
[2020-07-13] MEDS: MULTIVITAMIN TAB PO SCH (08:33)
[2020-07-13] MEDS: PANTOprazole 40 MG TAB PO SCH (08:34)
[2020-07-13] MEDS: predniSONE 20 MG TAB PO SCH (08:34)
[2020-07-13] MEDS: COLCHICINE 0.6 MG TAB PO SCH ×2 (08:34→20:54)
[2020-07-13] MEDS: amLODIPine BESYLATE 5 MG TAB PO SCH (08:34)
[2020-07-13] MEDS: ASPIRIN 81 MG ECTAB PO SCH (08:34)
[2020-07-13] MEDS: SPIRONOLACTONE 12.5 MG TAB PO SCH (08:34)
[2020-07-13] MEDS: CITALOPRAM 20 MG TAB PO SCH (08:35)
[2020-07-13] MEDS: lisinopril 5 MG TAB PO SCH (08:35)
[2020-07-13] MEDS: INSULIN GLARGINE SOLOSTAR 100 UNITS/ML 3 ML PEN SQ SCH ×2 (08:36→20:46)
[2020-07-13] MEDS: INSULIN ASPART 100 UNITS/ML 3 ML PEN SC SCH ×4 (08:37→20:45)
--- NOTE | 2020-07-13 08:55 | Hospitalist Progress Note ---
Date of Service July 13, 2020 Assessment & Plan (1) Asymptomatic hypertensive urgency: Ambulatory dysfunction Mechanical fall -Head CT:There is no hemorrhage, mass effect, or evidence of acute territorial ischemia by CT criteria. -Neck CT:There is no evidence of fracture or subluxation involving the cervical spine. Osteopenia and spondylotic change as above. -CXR: Cardiomegaly with no acute cardiopulmonary abnormality. -Face CT:There is no evidence of facial bone fracture. -Right Shoulder X ray:Osteopenia and degenerative change as above with no acute bony abnormality identified. -Right Rib X ray: No right-sided rib fractures identified. Continue Fall Precautions Needs rehab per PT evaluation once medically stable Right Knee Pain Acute Gout Aspirate show urate crystals, 10K WBC Aspirate culture negative so far Will discontinue ceftriaxone and monitor Continue Prednisone for acute gout Pain improved Discussed with RN. Encourage OOB and ambulation with assistance and walker Other infectious work-up currently negative and antibiotics discontinued -CXR from 07/07/20:Cardiomegaly and mild basilar atelectasis. -KUB:Nonobstructive bowel gas pattern. -Negative COVID Screen -Normal Lactate, Procalcitonin 0.15- 0.19 -Blood/Urine Cx:Negative -Stool negative for C diff Continue minced and moist diet per speech recommendations. Continue aspiration precautions Hypertensive Urgency Likely situational secondary to pain Continue amlodipine, lisinopril Also on tamsulosin Monitor BP Resume torsemide from AM Chronic diastolic heart failure Last EF 55 to 60%, TTE 2019 Continue Aldactone Monitor Volume status CKD III Baseline Cr ~ Mid 1s Cr is improved to 1.42 today Monitor renal function Avoid Nephrotoxic agents as able Nonocclusive CAD Continue aspirin, statin Hyperlipidemia Continue statin DM II HbA1C: 10.2 Hold PO meds Continue insulin therapy while hospitalized Lantus increased for better glycemic control especially in the setting of steroid therapy Continue sliding scale Monitor blood glucose levels H/O Prostate cancer S/P Radiation, Lupron DVT Px: Heparin SQ Code Status Full code Disposition Needs Rehab placement when medically stable Family: Patient 's Brother: [phone] Admission and Anticipated Discharge Date Admission Date: July 07, 2020 Subjective Patient seen and examined Patient has no new complaints today Had minimal knee pain this morning, asking about increasing activity No fevers, chills, nausea, abd pain, diarrhea Had urinary retention overnight and was straight cath. [place] (external) catheter in place with good urine output Physical Exam Constitutional: + well hydrated and + obese; no acute distress Eyes: PERRL, conjunctivae normal, anicteric sclerae ENMT: external ear and nose normal, oropharynx normal Respiratory: normal respiratory effort, lungs clear to auscultation Cardiovascular: Rate/Rhythm: regular rate and regular rhythm S1 S2 Gastrointestinal (Abdomen): normal bowel sounds, soft, nontender, no hepatosplenomegaly Musculoskeletal: No tenderness noted on palpation of both knees as well as on passive/active ROM Neurologic: PERRL, EOMI, accommodation nl, no face palsy, no dysarthria Psychiatric: Orientation: alert, oriented to person, oriented to place (Knew he was in the hospital but could not recall name), oriented to time and cooperative Results & Data Results & Data ([facility]) Vital Signs (Past 12 Hours) Vital Signs Temp Pulse Pulse Resp BP Pulse Ox 07/13/20 07:47 36.9 C 72 20 184/73 H 92 07/13/20 07:15 71 07/13/20 02:49 36.7 C 72 22 158/74 H 94 07/13/20 00:16 69 07/12/20 22:56 36.8 C 69 20 153/69 H 93 Laboratory Results Laboratory Results - last 24 hr 07/12/20 07/12/20 07/12/20 11:40 16:40 20:38 WBC RBC Hgb Hct MCV MCH MCHC RDW Std Deviation RDW Coeff of Faiza Plt Count MPV ESR Sodium Potassium Chloride Carbon Dioxide Anion Gap BUN Creatinine Est Cr Clr Drug Dosing Est GFR ( Amer) Est GFR (Non-Af Amer) BUN/Creatinine Ratio Glucose POC Glucose 248 H 275 H 295 H Calcium C-Reactive Protein 07/13/20 07/13/20 07/13/20 06:41 06:41 06:41 WBC 13.46 H RBC 3.56 L Hgb 11.4 L Hct 33.3 L MCV 93.5 MCH 32.0 MCHC 34.2 RDW Std Deviation 40.9 RDW Coeff of Faiza 12.0 Plt Count 362 MPV 10.9 H ESR > 90 H Sodium 130 L Potassium 4.7 Chloride 99 Carbon Dioxide 25 Anion Gap 7.0 BUN 57 H Creatinine 1.42 H Est Cr Clr Drug Dosing 55.4 Est GFR ( Amer) 52.9 Est GFR (Non-Af Amer) 45.7 BUN/Creatinine Ratio 40.1 H Glucose 233 H POC Glucose Calcium 10.0 C-Reactive Protein 6.77 H 07/13/20 07:41 WBC RBC Hgb Hct MCV MCH MCHC RDW Std Deviation RDW Coeff of Faiza Plt Count MPV ESR Sodium Potassium Chloride Carbon Dioxide Anion Gap BUN Creatinine Est Cr Clr Drug Dosing Est GFR ( Amer) Est GFR (Non-Af Amer) BUN/Creatinine Ratio Glucose POC Glucose 236 H Calcium C-Reactive Protein
[2020-07-13] MEDS: HYDROcodone/ACETAMINOPHEN 10/325 TAB PO PRN ×2 (11:23→16:45)
[2020-07-13] MEDS: TAMSULOSIN HCL 0.4 MG CAP PO SCH (17:43)
[2020-07-13] MEDS: PRAVASTATIN SOD 20 MG TAB PO SCH (20:48)
[2020-07-13] MEDS ORDERED: INSULIN ASPART 100 UNITS/ML 3 ML PEN SC STA (22:58)
[2020-07-14] MEDS: HEPARIN SOD 5,000 UNIT/0.5 ML VIAL SQ SCH (06:21)
[2020-07-14 07:07] LABS: Hematocrit (blood only) 34.1 % (42-52); Hemoglobin 11.5 g/dL (14.0-18.0); Mean Corpuscular Hemoglobin 31.5 pg (25-34); Mean Corpuscular Hgb Conc 33.7 g/dL (32-36); Mean Corpuscular Volume 93.4 fL (80-100); Mean Platelet Volume 10.8 fL (7.4-10.4); Platelet Count 370 K/uL (130-400); Red Blood Count 3.65 M/uL (4.7-6.1); White Blood Count 13.32 K/uL (4.8-10.8)
[2020-07-14 07:33] LABS: BUN Creatinine Ratio 39.1 (10-20); C Reactive Protein 2.78 mg/dl (0-0.29); Calcium 9.8 mg/dl (8.5-10.1); Creatinine Clr Calc Pharmacy 59.5 ml/min; Est GFR (African American) 57.8; Est GFR (Non-African American) 49.9; Potassium 4.5 mmol/L (3.5-5.1)
[2020-07-14] MEDS: HYDROcodone/ACETAMINOPHEN 10/325 TAB PO PRN ×2 (08:00→17:38)
[2020-07-14] MEDS: predniSONE 20 MG TAB PO SCH (08:01)
[2020-07-14] MEDS: MULTIVITAMIN TAB PO SCH (08:01)
[2020-07-14] MEDS: ASPIRIN 81 MG ECTAB PO SCH (08:01)
[2020-07-14] MEDS: amLODIPine BESYLATE 5 MG TAB PO SCH (08:01)
[2020-07-14] MEDS: COLCHICINE 0.6 MG TAB PO SCH ×2 (08:01→20:30)
[2020-07-14] MEDS: lisinopril 5 MG TAB PO SCH (08:01)
[2020-07-14] MEDS: CITALOPRAM 20 MG TAB PO SCH (08:01)
[2020-07-14] MEDS: PANTOprazole 40 MG TAB PO SCH (08:01)
[2020-07-14] MEDS: SPIRONOLACTONE 12.5 MG TAB PO SCH (08:02)
[2020-07-14] MEDS: INSULIN ASPART 100 UNITS/ML 3 ML PEN SC SCH ×4 (08:02→20:28)
[2020-07-14] MEDS: INSULIN GLARGINE SOLOSTAR 100 UNITS/ML 3 ML PEN SQ SCH (08:02)
[2020-07-14] MEDS: TORSEMIDE 10 MG TAB PO SCH (09:07)
--- NOTE | 2020-07-14 09:49 | Hospitalist Progress Note ---
Date of Service July 14, 2020 Assessment & Plan (1) Asymptomatic hypertensive urgency: Ambulatory dysfunction Mechanical fall -Head CT:There is no hemorrhage, mass effect, or evidence of acute territorial ischemia by CT criteria. -Neck CT:There is no evidence of fracture or subluxation involving the cervical spine. Osteopenia and spondylotic change as above. -CXR: Cardiomegaly with no acute cardiopulmonary abnormality. -Face CT:There is no evidence of facial bone fracture. -Right Shoulder X ray:Osteopenia and degenerative change as above with no acute bony abnormality identified. -Right Rib X ray: No right-sided rib fractures identified. Continue Fall Precautions Needs rehab per PT evaluation once medically stable Right Knee Pain Acute Gout Aspirate show urate crystals, 10K WBC Aspirate culture grew Corynebacterium today. Spoke with microbiologist. Culture growing 1 colony of corynebacterium for now. Though there is a possibility of this being a contaminant. There is also a possibility of this being septic arthritis in right knee with prosthesis especially with the effusion, previous high fevers that resolved with antibiotics, leukocytosis Resume ceftriaxone as patient had been afebrile since being on it. Will appreciate ID recommendations Ortho may do I and D tomorrow Continue Prednisone, now reduced to 20mg daily for acute gout Ortho also started colchicine Other infectious work-up currently negative and antibiotics discontinued -CXR from 07/07/20:Cardiomegaly and mild basilar atelectasis. -KUB:Nonobstructive bowel gas pattern. -Negative COVID Screen -Normal Lactate, Procalcitonin 0.15- 0.19 -Blood/Urine Cx:Negative -Stool negative for C diff Continue minced and moist diet per speech recommendations. NPO PMN for possible procedure Continue aspiration precautions Hypertensive Urgency Likely situational secondary to pain Continue amlodipine, lisinopril Also on tamsulosin Monitor BP On torsemide Chronic diastolic heart failure Last EF 55 to 60%, TTE 2018 Continue Aldactone Monitor Volume status CKD III Baseline Cr ~ Mid 1s Cr is improved to 1.32 today Monitor renal function Avoid Nephrotoxic agents as able Nonocclusive CAD Continue aspirin, statin Hyperlipidemia Continue statin DM II HbA1C: 10.2 Hold PO meds Poor glycemic control in the past few days due to steroid Insulin dose adjusments Continue insulin therapy while hospitalized Discussed with pharmacist. Optimize glycemic control Monitor blood glucose levels H/O Prostate cancer S/P Radiation, Lupron DVT Px: Heparin SQ Code Status Full code Disposition Needs Rehab placement when medically stable Family: Patient 's Brother: [phone] Admission and Anticipated Discharge Date Admission Date: July 07, 2020 Subjective Patient seen and examined. Complains only of right knee pain only with bearing weight on it No fevers recently. Last fever was on 07/10/20 : 38.6 No nausea, vomiting No abdominal pain, diarrhea No chest pain, cough or shortness of breath Physical Exam Constitutional: + well hydrated and + obese; no acute distress Eyes: PERRL, conjunctivae normal, anicteric sclerae ENMT: external ear and nose normal, oropharynx normal Respiratory: normal respiratory effort, lungs clear to auscultation Cardiovascular: Rate/Rhythm: regular rate and regular rhythm S1 S2 Gastrointestinal (Abdomen): normal bowel sounds, soft, nontender, no hepatosplenomegaly Musculoskeletal: Mild swelling of right knee, some pain with passive and active ROM (much improved) Neurologic: PERRL, EOMI, accommodation nl, no face palsy, no dysarthria Psychiatric: Orientation: alert, oriented to person, oriented to place and cooperative Results & Data Results & Data ([facility]) Vital Signs (Past 12 Hours) Vital Signs Temp Pulse Pulse Pulse Resp BP Pulse Ox 07/14/20 07:45 36.6 C 58 L 20 154/82 H 96 07/14/20 04:35 36.9 C 65 22 150/74 H 95 07/14/20 00:21 71 07/13/20 22:24 36.6 C 59 L 20 159/66 H 93 Laboratory Results Laboratory Results - last 24 hr 07/13/20 07/13/20 07/13/20 16:51 20:35 20:37 WBC RBC Hgb Hct MCV MCH MCHC RDW Std Deviation RDW Coeff of Faiza Plt Count MPV ESR Sodium Potassium Chloride Carbon Dioxide Anion Gap BUN Creatinine Est Cr Clr Drug Dosing Est GFR ( Amer) Est GFR (Non-Af Amer) BUN/Creatinine Ratio Glucose POC Glucose 282 H 339 H* 364 H* Calcium C-Reactive Protein 07/13/20 07/14/20 07/14/20 22:52 06:33 06:33 WBC RBC Hgb Hct MCV MCH MCHC RDW Std Deviation RDW Coeff of Faiza Plt Count MPV ESR 87 H Sodium 136 Potassium 4.5 Chloride 104 Carbon Dioxide 27 Anion Gap 5.0 BUN 52 H Creatinine 1.32 Est Cr Clr Drug Dosing 59.5 Est GFR ( Amer) 57.8 Est GFR (Non-Af Amer) 49.9 BUN/Creatinine Ratio 39.1 H Glucose 168 H POC Glucose 295 H Calcium 9.8 C-Reactive Protein 2.78 H 07/14/20 07/14/20 07/14/20 06:33 07:34 11:25 WBC 13.32 H RBC 3.65 L Hgb 11.5 L Hct 34.1 L MCV 93.4 MCH 31.5 MCHC 33.7 RDW Std Deviation 41.0 RDW Coeff of Faiza 12.0 Plt Count 370 MPV 10.8 H ESR Sodium Potassium Chloride Carbon Dioxide Anion Gap BUN Creatinine Est Cr Clr Drug Dosing Est GFR ( Amer) Est GFR (Non-Af Amer) BUN/Creatinine Ratio Glucose POC Glucose 159 H 296 H Calcium C-Reactive Protein
[2020-07-14] MEDS ORDERED: PHARMACY GLYCEMIC MGMT CONSULT PRN (10:13)
--- NOTE | 2020-07-14 10:32 | Pharmacy Report ---
Pharmacy Glycemic Short Note 2 - Date of Service July 14, 2020 - Glycemic Short BSG Results (Last 24 hours): 07/13/20 07/13/20 07/13/20 11:28 16:51 20:35 Glucose POC Glucose 193 H 282 H 339 H* 07/13/20 07/13/20 07/14/20 20:37 22:52 06:33 Glucose 168 H POC Glucose 364 H* 295 H 07/14/20 07:34 Glucose POC Glucose 159 H OUTPATIENT ANTIDIABETIC REGIMEN: * Trulicity 3 mg weekly * Glipizide 15 mg BIDM * Metformin 500 mg BIDM ASSESSMENT: * Mr Merritt is an 80 y/o M with a PMH of uncontrolled T2DM on one injectable and two oral agents who presents with hypertensive urgency. He has been receiving prednisone 40 mg daily for several days. Overall the patient generally receives about 105 units/day with 70 units of basal and 35 units of bolus. BSGs have all (except for one) been above 200 mg/dL x 2 days. Prednisone decreased from 40 mg daily to 20 mg daily today. * This morning fasting BSG is 159 mg/dL compared to yesterday's fasting of 236 mg/dL. Will decrease basal insulin to weight-based stress of 2 dosing or around 40 units. Expect a total daily insulin dose of around 100-110 units/day even with prednisone decrease. Aim for a 40%/60% basal/bolus split so will aim for Lantus 40 units/day. Patient received 35 units the morning so give additional 10 units tonight. * For Novolog, will start with weight-based stress of 3 (also correlates with TDD of around 100 units/day). * Will not utilize NPH at this time since patient has not received while on steroids. PLAN FOR INPATIENT GLYCEMIC CONTROL: * Hold outpatient oral diabetes medications * Basal insulin * Lantus 35 units SQ x 1 then 10 units SQ tonight * Start Lantus 20 units SQ BID on 07/15/20 * Bolus insulin * NovoLog per scale ACHS or Q6hrs while NPO * Goal Range: Low 110 mg/dL - High 140 mg/dL * Correction Factor: 15 mg/dL/unit * Nutritional / Prandial insulin per carb ratio of 1 unit per 4 grams CHO consumed PLAN FOR DISCHARGE: * TBD based upon steroid duration
[2020-07-14] MEDS ORDERED: cefTRIAXone SODIUM 2,000 MG in DEXTROSE 5% 50 ML IV SCH (13:00)
[2020-07-14] MEDS: ACETAMINOPHEN 325 MG TAB PO PRN (13:01)
--- NOTE | 2020-07-14 17:17 | Anesthesiology Consultation ---
Date of Service July 14, 2020 Assessment & Plan (1) Encounter for pre-operative examination: Chart Review Chart Review: Acceptable Risk for Surgery and Patient NOT seen in Pre Admission Testing Consults Requested none History Surgery Operation Date: 07/15/20 11:15 Proposed Procedures p Right Knee Incision and Drainage, - Bari Mantilla DO s Possible Explant Antibiotic Spacer Placement - Bari Mantilla DO Height/Weight Height: 6 ft 1 in Weight: 123.8 kg Allergies Allergy/AdvReac Type Severity Reaction Status Date / Time No Known Allergies Verified 07/05/20 23:35 Medications Home Medications Medication Instructions Recorded Confirmed Last Taken Lantus Solostar U-100 Insulin 35 units SUBCUT BID 07/31/18 07/07/20 07/04/20 ascorbic acid (vitamin C) 500 mg PO DAILY 07/31/18 07/05/20 07/05/20 aspirin 81 mg PO DAILY 07/31/18 07/05/20 07/05/20 citalopram 20 mg PO DAILY 07/31/18 07/05/20 07/05/20 cod liver oil 1 cap PO DAILY 07/31/18 07/05/20 07/05/20 esomeprazole magnesium 40 mg PO DAILY 07/31/18 07/05/20 07/05/20 glipizide 5 mg PO BIDM 07/31/18 07/05/20 07/05/20 glipizide 10 mg PO BIDM 07/31/18 07/05/20 07/05/20 guaifenesin 600 mg PO BID PRN 07/31/18 07/05/20 Unknown hydrocodone-acetaminophen 1 tab PO TID PRN 07/31/18 07/05/20 Unknown [id number] 1 cap PO DAILY 07/31/18 07/05/20 07/05/20 [krill oil] lidocaine [Lidoderm] 1 patch TOPICAL DAILY PRN 07/31/18 07/05/20 Unknown omega [id number]-[id number]-[id number]-fish oil 1 cap PO DAILY 07/31/18 07/05/20 07/05/20 potassium chloride 10 meq PO DAILY 07/31/18 07/05/20 07/05/20 pravastatin [Pravachol] 20 mg PO HS 07/31/18 07/05/20 07/04/20 spironolactone 12.5 mg PO DAILY 07/31/18 07/05/20 07/05/20 tamsulosin 0.8 mg PO DAILY@1800 07/31/18 07/06/20 07/05/20 torsemide 40 mg PO DAILY #0 tab 08/03/18 07/05/20 07/05/20 multivitamin 1 tab PO DAILY 07/05/20 07/05/20 07/05/20 dulaglutide [Trulicity] 3 mg SUBCUT Q7D 07/07/20 07/07/20 Unknown lisinopril 5 mg PO DAILY 07/07/20 07/07/20 Unknown metformin 500 mg PO BID 07/07/20 07/07/20 Unknown Active Medications Generic Name Dose Route Start Last Admin Trade Name Freq PRN Reason Stop Dose Admin Acetaminophen 650 mg 07/08/20 16:29 07/14/20 13:01 Acetaminophen 325 Mg Tab PO 08/07/20 16:28 650 mg Q6H PRN Administration fever Hydrocodone Bitart/Acetaminophen 1 tab 07/06/20 02:38 07/14/20 17:38 Hydrocodone/Acetaminophen 10/325 Tab PO 07/20/20 02:37 1 tab TID PRN Administration Pain Amlodipine Besylate 10 mg 07/09/20 09:00 07/14/20 08:01 Amlodipine Besylate 5 Mg Tab PO 08/08/20 08:59 10 mg DAILY VAISHALI Administration Aspirin 81 mg 07/06/20 09:00 07/14/20 08:01 Aspirin 81 Mg Ectab PO 08/05/20 08:59 81 mg DAILY VAISHALI Administration Citalopram Hydrobromide 20 mg 07/06/20 09:00 07/14/20 08:01 Citalopram 20 Mg Tab PO 08/05/20 08:59 20 mg DAILY VAISHALI Administration Colchicine 0.6 mg 07/12/20 09:00 07/14/20 08:01 Colchicine 0.6 Mg Tab PO 08/11/20 08:59 0.6 mg BID VAISHALI Administration Heparin Sodium (Porcine) 5,000 units 07/06/20 06:00 07/14/20 06:21 Heparin Sod 5,000 Unit/0.5 Ml Vial SQ 08/05/20 05:59 5,000 units Q8 VAISHALI Administration Hydromorphone HCl 0.25 mg 07/06/20 02:38 07/10/20 14:14 Hydromorphone Inj 0.5 Mg/0.5 Ml Syr IV 07/20/20 02:37 0.25 mg Q6H PRN Administration Pain Promethazine HCl 12.5 mg/ 50.5 mls @ 202 mls/hr 07/06/20 02:38 07/08/20 06:15 Sodium Chloride IV 08/05/20 02:37 Infused Q6H PRN Infusion Nausea And Vomiting Doxycycline Hyclate 100 mg/ 110 mls @ 50 mls/hr 07/08/20 21:00 07/09/20 10:33 Dextrose IV 07/14/20 20:59 Infused Q12H VAISHALI Infusion Ceftriaxone Sodium 2,000 mg/ 70 mls @ 100 mls/hr 07/10/20 17:00 07/12/20 18:08 Dextrose IV 07/17/20 16:59 Infused Q24H VAISHALI Infusion Protocol Ceftriaxone Sodium 2,000 mg/ 70 mls @ 100 mls/hr 07/14/20 13:00 07/14/20 13:39 Dextrose IV 08/25/20 11:59 Infused Q24H VAISHALI Infusion Protocol Insulin Aspart 0 units 07/06/20 02:38 07/14/20 17:32 Insulin Aspart 100 Units/Ml 3 Ml Pen SC 08/05/20 02:37 36 units ACHS VAISHALI Administration Lisinopril 5 mg 07/08/20 07:10 07/14/20 08:01 Lisinopril 5 Mg Tab PO 08/07/20 07:09 5 mg DAILY VAISHALI Administration Miscellaneous 1 ea 07/06/20 21:00 07/13/20 20:48 Remove Lidoderm Patch N/A 08/05/20 20:59 1 ea DAILY@2100 VAISHALI Administration Multivitamins 1 tab 07/06/20 09:00 07/14/20 08:01 Multivitamin Tab PO 08/05/20 08:59 1 tab DAILY VAISHALI Administration Pantoprazole Sodium 40 mg 07/06/20 09:00 07/14/20 08:01 Pantoprazole 40 Mg Tab PO 08/05/20 08:59 40 mg DAILY VAISHALI Administration Pravastatin Sodium 20 mg 07/06/20 21:00 07/13/20 20:48 Pravastatin Sod 20 Mg Tab PO 08/05/20 20:59 20 mg HS VAISHALI Administration Prednisone 20 mg 07/14/20 09:00 07/14/20 08:01 Prednisone 20 Mg Tab PO 08/13/20 08:59 20 mg DAILY VAISHALI Administration Spironolactone 12.5 mg 07/07/20 09:00 07/14/20 08:02 Spironolactone 12.5 Mg Tab PO 08/06/20 08:59 12.5 mg DAILY VAISHALI Administration Tamsulosin HCl 0.8 mg 07/06/20 18:00 07/14/20 17:32 Tamsulosin Hcl 0.4 Mg Cap PO 08/05/20 17:59 0.8 mg DAILY@1800 VAISHALI Administration Torsemide 20 mg 07/14/20 09:00 07/14/20 09:07 Torsemide 10 Mg Tab PO 08/13/20 08:59 20 mg QAM VAISHALI Administration Past Medical History Medical History Chronic back pain Chronic diastolic heart failure Diaphragmatic hernia Diverticulitis GERD (gastroesophageal reflux disease) Hyperlipidemia Hypertension Narcotic dependence Prostate cancer "Prostate, adenocarcinoma, cristina 3 + 3, PSA 6.66, cT1c, group I TREATMENT: Prostate seed implant - Cesium 131 - 06/30/2011 - monotherapy alone, Lupron for 6 months prior to implantation." Type 2 diabetes mellitus Venous insufficiency Past Family History Family History Mother Stroke Past Surgical History Surgical History History of hip replacement History of knee replacement Status post hernia repair Social History Smoking Status: Former smoker tobacco type: smokeless tobacco Do You Dip or Chew Tobacco: Yes Hx Alcohol Use: Yes (quit) Hx Substance Use: No Physical Exam Vital Signs Last Vital Signs Temp 36.5 C 07/14/20 18:49 Pulse 68 07/14/20 18:49 Resp 18 07/14/20 18:49 BP 162/61 H 07/14/20 18:49 Pulse Ox 95 07/14/20 18:49 Testing Laboratory Results 07/14/20 06:33 07/14/20 06:33 Hemoglobin A1c 10.2 % (4.5-5.6) H 07/05/20 21:40 Urine Color Dark Yellow 07/06/20 11:14 Urine Appearance Clear (Clear) 07/06/20 11:14 Urine pH 5.0 (4.5-7.5) 07/06/20 11:14 Ur Specific [place] 1.018 (1.000-1.030) 07/06/20 11:14 Urine Protein Negative (Negative) 07/06/20 11:14 Urine Glucose (UA) 1+ (Negative) H 07/06/20 11:14 Urine Ketones Negative (Negative) 07/06/20 11:14 Urine Nitrite Negative (Negative) 07/06/20 11:14 Ur Leukocyte Esterase Negative (Negative) 07/06/20 11:14 07/10/20 14:05 Gram Stain - Final Joint Fluid,Knee Aerobic and Anaerobic Culture - Preliminary Corynebacterium species 07/07/20 12:04 Aerobic Blood Culture - Final Blood No growth in Aerobic bottle after 5 days. Anaerobic Blood Culture - Final No growth in Anaerobic bottle after 5 days. 07/07/20 11:59 Aerobic Blood Culture - Final Blood No growth in Aerobic bottle after 5 days. Anaerobic Blood Culture - Final No growth in Anaerobic bottle after 5 days. 07/08/20 13:30 Escherichia coli Shiga Toxins Test - Final Stool Stool Culture - Final No Salmonella isolated, No Shigella isolated, No Campylobacter jejuni isolated. 07/08/20 Unknown Urine Culture - Final Urine,Clean Catch Three types of organisms present, all low counts probable skin francheska. No further identifications or sensitivities to follow. 07/14/20 07/14/20 07/14/20 16:26 16:25 11:25 POC Glucose 353 H* 362 H* 296 H Electrocardiogram Date: 07/05/20 Findings: + NSR @ (70) Echocardiogram Date: 08/01/18 EF: 55-60% RWMA: + none Other Findings: + LVH (moderate concentric) and + diastolic dysfunction (grade 1) Other Testing -Head CT:There is no hemorrhage, mass effect, or evidence of acute territorial ischemia by CT criteria. -Neck CT:There is no evidence of fracture or subluxation involving the cervical spine. Osteopenia and spondylotic change as above. -CXR: Cardiomegaly with no acute cardiopulmonary abnormality. -Face CT:There is no evidence of facial bone fracture. -Right Shoulder X ray:Osteopenia and degenerative change as above with no acute bony abnormality identified. -Right Rib X ray: No right-sided rib fractures identified.
[2020-07-14] MEDS: TAMSULOSIN HCL 0.4 MG CAP PO SCH (17:32)
[2020-07-14] MEDS: PRAVASTATIN SOD 20 MG TAB PO SCH (20:30)
[2020-07-14] MEDS ORDERED: INSULIN GLARGINE SOLOSTAR 100 UNITS/ML 3 ML PEN SQ SCH (21:00)
[2020-07-15 06:14] LABS: Hematocrit (blood only) 37.2 % (42-52); Hemoglobin 12.7 g/dL (14.0-18.0); Mean Corpuscular Hemoglobin 32.2 pg (25-34); Mean Corpuscular Hgb Conc 34.1 g/dL (32-36); Mean Corpuscular Volume 94.2 fL (80-100); Mean Platelet Volume 10.9 fL (7.4-10.4); Platelet Count 431 K/uL (130-400); RDW Standard Deviation 41.6 fL (36.4-46.3); Red Blood Count 3.95 M/uL (4.7-6.1); White Blood Count 15.43 K/uL (4.8-10.8)
[2020-07-15 06:50] LABS: BUN Creatinine Ratio 37.5 (10-20); Calcium 9.4 mg/dl (8.5-10.1); Creatinine Clr Calc Pharmacy 60.2 ml/min; Est GFR (African American) 58.9; Est GFR (Non-African American) 50.8; Potassium 4.4 mmol/L (3.5-5.1)
[2020-07-15 06:51] LABS: C Reactive Protein 1.52 mg/dl (0-0.29)
[2020-07-15] MEDS ORDERED: ETHYL CHLORIDE AER SPR 100 ML CAN EXT ONE (07:15)
[2020-07-15] MEDS ORDERED: ETHYL CHLORIDE AER PER SPRAY 100 ML CAN EXT ONE (07:30)
[2020-07-15] MEDS: COLCHICINE 0.6 MG TAB PO SCH ×2 (08:19→21:04)
[2020-07-15] MEDS: CITALOPRAM 20 MG TAB PO SCH (08:19)
[2020-07-15] MEDS: amLODIPine BESYLATE 5 MG TAB PO SCH (08:19)
[2020-07-15] MEDS: ASPIRIN 81 MG ECTAB PO SCH (08:19)
[2020-07-15] MEDS: MULTIVITAMIN TAB PO SCH (08:19)
[2020-07-15] MEDS: PANTOprazole 40 MG TAB PO SCH (08:19)
[2020-07-15] MEDS: TORSEMIDE 10 MG TAB PO SCH (08:20)
[2020-07-15] MEDS: lisinopril 5 MG TAB PO SCH (08:20)
[2020-07-15] MEDS: SPIRONOLACTONE 12.5 MG TAB PO SCH (08:20)
[2020-07-15] MEDS: predniSONE 20 MG TAB PO SCH (08:20)
[2020-07-15] MEDS: INSULIN GLARGINE SOLOSTAR 100 UNITS/ML 3 ML PEN SQ SCH ×2 (08:21→21:05)
[2020-07-15] MEDS: INSULIN ASPART 100 UNITS/ML 3 ML PEN SC SCH ×4 (08:22→21:08)
[2020-07-15] MEDS: HYDROcodone/ACETAMINOPHEN 10/325 TAB PO PRN ×2 (08:38→14:16)
--- NOTE | 2020-07-15 09:43 | Hospitalist Progress Note ---
Date of Service July 15, 2020 Assessment & Plan (1) Asymptomatic hypertensive urgency: Ambulatory dysfunction Mechanical fall -Head CT:There is no hemorrhage, mass effect, or evidence of acute territorial ischemia by CT criteria. -Neck CT:There is no evidence of fracture or subluxation involving the cervical spine. Osteopenia and spondylotic change as above. -CXR: Cardiomegaly with no acute cardiopulmonary abnormality. -Face CT:There is no evidence of facial bone fracture. -Right Shoulder X ray:Osteopenia and degenerative change as above with no acute bony abnormality identified. -Right Rib X ray: No right-sided rib fractures identified. Continue Fall Precautions Needs rehab per PT evaluation once medically stable Right Knee Pain Acute Gout Aspirate show urate crystals, 10K WBC Aspirate culture grew Corynebacterium yesterday Spoke with microbiologist. Culture growing 1 colony of corynebacterium for now. This may likely be a contaminant. However, there is also a possibility of this being septic arthritis in right kn ee with prosthesis especially with the effusion, previous high fevers that resolved with antibiotics, leukocytosis ID recommendations appreciated Holding antibiotics for now while awaiting I and D by Ortho today. We will follow-up fluid analysis Continue Prednisone, now reduced to 20mg daily for acute gout Also on colchicine Other infectious work-up currently negative and antibiotics discontinued -CXR from 07/07/20:Cardiomegaly and mild basilar atelectasis. -KUB:Nonobstructive bowel gas pattern. -Negative COVID Screen -Normal Lactate, Procalcitonin 0.15- 0.19 -Blood/Urine Cx:Negative -Stool negative for C diff Continue minced and moist diet per speech recommendations. NPO PMN for possible procedure Continue aspiration precautions Hypertensive Urgency Likely situational secondary to pain Continue amlodipine, lisinopril Also on tamsulosin Monitor BP On torsemide (resumed at half home dose) Chronic diastolic heart failure Last EF 55 to 60%, TTE 2018 Continue Aldactone and torsemide May increase to home dose of torsemide prior to discharge Monitor Volume status CKD III Baseline Cr ~ Mid 1s Cr is improved to 1.30 today Monitor renal function Avoid Nephrotoxic agents as able Nonocclusive CAD Continue aspirin, statin Hyperlipidemia Continue statin DM II HbA1C: 10.2 Hold PO meds Poor glycemic control in the past few days due to steroid Better glycemic control today Continue insulin therapy while hospitalized Pharm on board Monitor blood glucose levels H/O Prostate cancer S/P Radiation, Lupron DVT Px: Heparin SQ Code Status Full code Disposition Needs Rehab placement when medically stable Family: Patient 's Brother: [phone] CM reported rehab facility will like a [facility] PCR for discharge due fever last week. Spoke to lab. COVID ordered Admission and Anticipated Discharge Date Admission Date: July 07, 2020 Subjective Patient seen and examined. Only complains of right knee pain with activity No fevers, chills, nausea vomiting Physical Exam Constitutional: + well hydrated and + obese; no acute distress Eyes: PERRL, conjunctivae normal, anicteric sclerae ENMT: external ear and nose normal, oropharynx normal Respiratory: normal respiratory effort, lungs clear to auscultation Cardiovascular: Rate/Rhythm: regular rate and regular rhythm S1-S2 Gastrointestinal (Abdomen): normal bowel sounds, soft, nontender, no hepatosplenomegaly Musculoskeletal: Mild right knee swelling [improved], nontender to palpation Pain on passive and active flexion Neurologic: PERRL, EOMI, accommodation nl, no face palsy, no dysarthria Psychiatric: Orientation: alert, oriented to person, oriented to place and cooperative Results & Data Results & Data ([facility]) Vital Signs (Past 12 Hours) Vital Signs Temp Pulse Pulse Resp BP BP Pulse Ox 07/15/20 07:11 36.5 C 60 18 163/75 H 96 07/15/20 03:08 36.6 C 63 18 153/76 H 94 07/15/20 00:00 63 07/14/20 22:42 36.8 C 70 18 151/82 H 96 Laboratory Results Laboratory Results - last 24 hr 07/14/20 07/14/20 07/14/20 11:25 16:25 16:26 WBC RBC Hgb Hct MCV MCH MCHC RDW Std Deviation RDW Coeff of Faiza Plt Count MPV ESR Sodium Potassium Chloride Carbon Dioxide Anion Gap BUN Creatinine Est Cr Clr Drug Dosing Est GFR ( Amer) Est GFR (Non-Af Amer) BUN/Creatinine Ratio Glucose POC Glucose 296 H 362 H* 353 H* Calcium C-Reactive Protein 07/14/20 07/15/20 07/15/20 20:24 05:30 05:30 WBC RBC Hgb Hct MCV MCH MCHC RDW Std Deviation RDW Coeff of Faiza Plt Count MPV ESR 82 H Sodium 136 Potassium 4.4 Chloride 103 Carbon Dioxide 26 Anion Gap 7.0 BUN 49 H Creatinine 1.30 Est Cr Clr Drug Dosing 60.2 Est GFR ( Amer) 58.9 Est GFR (Non-Af Amer) 50.8 BUN/Creatinine Ratio 37.5 H Glucose 125 H POC Glucose 203 H Calcium 9.4 C-Reactive Protein 1.52 H 07/15/20 07/15/20 05:30 07:18 WBC 15.43 H RBC 3.95 L Hgb 12.7 L Hct 37.2 L MCV 94.2 MCH 32.2 MCHC 34.1 RDW Std Deviation 41.6 RDW Coeff of Faiza 12.0 Plt Count 431 H MPV 10.9 H ESR Sodium Potassium Chloride Carbon Dioxide Anion Gap BUN Creatinine Est Cr Clr Drug Dosing Est GFR ( Amer) Est GFR (Non-Af Amer) BUN/Creatinine Ratio Glucose POC Glucose 161 H Calcium C-Reactive Protein
[2020-07-15] MEDS ORDERED: ePHEDrine sulfate 50 MG/ML AMP IV PRN (10:01)
[2020-07-15] MEDS ORDERED: fentaNYL citrate 100 MCG/2 ML VIAL IV PRN (10:01)
[2020-07-15] MEDS ORDERED: MEPERIDINE HCL 25 MG/ML CARP/VIAL IV PRN (10:01)
[2020-07-15] MEDS ORDERED: PHENYLEPHRINE 100MCG/ML 5ML SYR IV PRN (10:01)
[2020-07-15] MEDS ORDERED: HYDROmorphone INJ 1 MG/ML SYRINGE IV PRN (10:01)
[2020-07-15] MEDS ORDERED: ONDANSETRON INJ 2 MG/ML 2 ML VIAL IV PRN (10:01)
[2020-07-15] MEDS ORDERED: ATROPINE SULFATE 0.1 MG/ML 10ML SYR IV PRN (10:01)
[2020-07-15] MEDS ORDERED: LABETALOL HCL IV 5 MG/ML 20ML IV PRN (10:01)
--- NOTE | 2020-07-15 11:52 | Pharmacy Report ---
Pharmacy Glycemic Short Note 2 - Date of Service July 15, 2020 - Glycemic Short BSG Results (Last 24 hours): 07/14/20 07/14/20 07/14/20 16:25 16:26 20:24 Glucose POC Glucose 362 H* 353 H* 203 H 07/15/20 07/15/20 07/15/20 05:30 07:18 11:24 Glucose 125 H POC Glucose 161 H 225 H OUTPATIENT ANTIDIABETIC REGIMEN: * Trulicity 3 mg weekly * Glipizide 15 mg BIDM * Metformin 500 mg BIDM ASSESSMENT: 07/15 * Patient received total of 119 units of insulin yesterday, of which 45 units were basal insulin * BSGs not well controlled in 200-300s * Fasting BSG 161 mg/dL - will continue with similar basal insulin dose as yesterday, plan to give full dose this AM despite NPO status as I anticipate BSGs to rise with prednisone * Continue same CF/CR for now 07/14 * Mr Merritt is an 80 y/o M with a PMH of uncontrolled T2DM on one injectable and two oral agents who presents with hypertensive urgency. He has been receiving prednisone 40 mg daily for several days. Overall the patient generally receives about 105 units/day with 70 units of basal and 35 units of bolus. BSGs have all (except for one) been above 200 mg/dL x 2 days. Prednisone decreased from 40 mg daily to 20 mg daily today. * This morning fasting BSG is 159 mg/dL compared to yesterday's fasting of 236 mg/dL. Will decrease basal insulin to weight-based stress of 2 dosing or around 40 units. Expect a total daily insulin dose of around 100-110 units/day even with prednisone decrease. Aim for a 40%/60% basal/bolus split so will aim for Lantus 40 units/day. Patient received 35 units the morning so give additional 10 units tonight. * For Novolog, will start with weight-based stress of 3 (also correlates with TDD of around 100 units/day). * Will not utilize NPH at this time since patient has not received while on steroids. PLAN FOR INPATIENT GLYCEMIC CONTROL: * Hold outpatient oral diabetes medications * Basal insulin * Lantus 20 units bid * Bolus insulin * NovoLog per scale ACHS or Q6hrs while NPO * Goal Range: Low 110 mg/dL - High 140 mg/dL * Correction Factor: 12 mg/dL/unit * Nutritional / Prandial insulin per carb ratio of 1 unit per 4 grams CHO consumed PLAN FOR DISCHARGE: * tbd
--- NOTE | 2020-07-15 13:45 | Procedure Note ---
Procedure Note Date of Service July 15, 2020 The patient's right knee was prepped with a combination of Betadine and alcohol. Utilizing sterile techniques, 18 gauge needle and 60cc syringe, an anterolateral arthrocentesis was performed. 20 cc of serosanguineous synovial fluid was collected. 4x4's and diony wrap were applied to the knee. The patient tolerated the procedure well. Coding
--- NOTE | 2020-07-15 13:52 | Orthopedic Progress Note ---
Date of Service July 15, 2020 Assessment & Plan (1) Right knee pain: History of right total knee arthroplasty, acute gouty flare of right knee, questionable P JI. Arthrocentesis performed on 07/10/2020 + for gout, 10,000 white count. Cultures on 07/14/2020 + for Corynebacterium species, infectious disease was consulted, highly suspicious for contaminant, recommended reaspiration. I felt this was appropriate given patient's inflammatory labs continue to improve as well as his pain with current gout treatment. I indicated the patient for arthrocentesis of his right knee, the risks, benefits, complications and alternatives were explained in detail and include however not limited to infections, blood clots, acute blood loss, injury to surrounding nerves, bone, vessels, soft tissue, dry tap, arthrofibrosis, chronic pain, loss of limb and loss of life. Alternatives included no arthrocentesis which could result in worsening symptoms. Patient wished to proceed with arthrocentesis of the right knee and informed consent was obtained at this time. Procedure note and documentation I was able to aspirate 20 cc of serosanguineous fluid from the right knee. Fluid analysis ordered including cell count, Gram stain, cultures, crystals and Lyme. We will continue to monitor the patient closely, if repeat aspiration cultures positive I discussed with the patient at length it would be necessary to undergo irrigation debridement of right total knee arthroplasty. Admission and Anticipated Discharge Date Admission Date: July 07, 2020 Subjective Patient seen lying in bed comfortably, admits to pain with activity, pain much improved since admission, denies fevers, chills, nausea, vomiting, shortness of breath or chest pain. Review of Systems Review of Systems: All systems reviewed & are unremarkable except as noted in HPI & below Constitutional: as per Subjective / HPI Physical Exam Physical Exam: Right lower extremity is neurovascular sensory intact grossly, moderate effusion, no erythema, painful range of motion but improved on admission, 0 to 90 degrees. Compartment soft nontender. Incision is clean dry and intact. Constitutional: WD/WN, vitals as above Results & Data ([facility]) Vital Signs (Past 12 Hours) Vital Signs Temp Pulse Pulse Resp BP BP Pulse Ox 07/15/20 11:08 36.8 C 68 18 128/72 95 07/15/20 08:00 66 07/15/20 07:11 36.5 C 60 18 163/75 H 96 07/15/20 03:08 36.6 C 63 18 153/76 H 94 Laboratory Results 07/15/20 07/15/20 07/15/20 Range/Units 13:15 13:15 13:15 WBC (4.8-10.8) K/uL RBC (4.7-6.1) M/uL Hgb (14.0-18.0) g/dL Hct (42-52) % MCV (80-100) fL MCH (25-34) pg MCHC (32-36) g/dL RDW Std Deviation (36.4-46.3) fL RDW Coeff of Faiza (11.5-14.5) % Plt Count (130-400) K/uL MPV (7.4-10.4) fL ESR (0-14) mm/hr Sodium (136-145) mmol/L Potassium (3.5-5.1) mmol/L Chloride (98-107) mmol/L Carbon Dioxide (21-32) mmol/L Anion Gap (3-11) BUN (7-18) mg/dl Creatinine (0.6-1.4) mg/dl Est Cr Clr Drug Dosing ml/min Est GFR ( Amer) Est GFR (Non-Af Amer) BUN/Creatinine Ratio (10-20) Glucose (70-99) mg/dl POC Glucose (70-99) mg/dl Calcium (8.5-10.1) mg/dl C-Reactive Protein (0-0.29) mg/dl Fld Lyme DNA (PCR) Pending Synovial Source Pending Synovial Color Pending Synovial Appearance Pending Synovial WBC Pending Synovial RBC Pending Synovial Crystals Pending Lyme Specimen Source Pending COVID-19 Eval Order SARS-CoV-2, RNA, NAAT (NEGATIVE) 07/15/20 07/15/20 07/15/20 Range/Units 11:24 11:10 11:10 WBC (4.8-10.8) K/uL RBC (4.7-6.1) M/uL Hgb (14.0-18.0) g/dL Hct (42-52) % MCV (80-100) fL MCH (25-34) pg MCHC (32-36) g/dL RDW Std Deviation (36.4-46.3) fL RDW Coeff of Faiza (11.5-14.5) % Plt Count (130-400) K/uL MPV (7.4-10.4) fL ESR (0-14) mm/hr Sodium (136-145) mmol/L Potassium (3.5-5.1) mmol/L Chloride (98-107) mmol/L Carbon Dioxide (21-32) mmol/L Anion Gap (3-11) BUN (7-18) mg/dl Creatinine (0.6-1.4) mg/dl Est Cr Clr Drug Dosing ml/min Est GFR ( Amer) Est GFR (Non-Af Amer) BUN/Creatinine Ratio (10-20) Glucose (70-99) mg/dl POC Glucose 225 H (70-99) mg/dl Calcium (8.5-10.1) mg/dl C-Reactive Protein (0-0.29) mg/dl Fld Lyme DNA (PCR) Synovial Source Synovial Color Synovial Appearance Synovial WBC Synovial RBC Synovial Crystals Lyme Specimen Source COVID-19 Eval Order Covid19 [facility] SARS-CoV-2, RNA, NAAT NEGATIVE (NEGATIVE) 07/15/20 07/15/20 07/15/20 Range/Units 07:18 05:30 05:30 WBC 15.43 H (4.8-10.8) K/uL RBC 3.95 L (4.7-6.1) M/uL Hgb 12.7 L (14.0-18.0) g/dL Hct 37.2 L (42-52) % MCV 94.2 (80-100) fL MCH 32.2 (25-34) pg MCHC 34.1 (32-36) g/dL RDW Std Deviation 41.6 (36.4-46.3) fL RDW Coeff of Faiza 12.0 (11.5-14.5) % Plt Count 431 H (130-400) K/uL MPV 10.9 H (7.4-10.4) fL ESR (0-14) mm/hr Sodium 136 (136-145) mmol/L Potassium 4.4 (3.5-5.1) mmol/L Chloride 103 (98-107) mmol/L Carbon Dioxide 26 (21-32) mmol/L Anion Gap 7.0 (3-11) BUN 49 H (7-18) mg/dl Creatinine 1.30 (0.6-1.4) mg/dl Est Cr Clr Drug Dosing 60.2 ml/min Est GFR ( Amer) 58.9 Est GFR (Non-Af Amer) 50.8 BUN/Creatinine Ratio 37.5 H (10-20) Glucose 125 H (70-99) mg/dl POC Glucose 161 H (70-99) mg/dl Calcium 9.4 (8.5-10.1) mg/dl C-Reactive Protein 1.52 H (0-0.29) mg/dl Fld Lyme DNA (PCR) Synovial Source Synovial Color Synovial Appearance Synovial WBC Synovial RBC Synovial Crystals Lyme Specimen Source COVID-19 Eval Order SARS-CoV-2, RNA, NAAT (NEGATIVE) 07/15/20 07/14/20 07/14/20 Range/Units 05:30 20:24 16:26 WBC (4.8-10.8) K/uL RBC (4.7-6.1) M/uL Hgb (14.0-18.0) g/dL Hct (42-52) % MCV (80-100) fL MCH (25-34) pg MCHC (32-36) g/dL RDW Std Deviation (36.4-46.3) fL RDW Coeff of Faiza (11.5-14.5) % Plt Count (130-400) K/uL MPV (7.4-10.4) fL ESR 82 H (0-14) mm/hr Sodium (136-145) mmol/L Potassium (3.5-5.1) mmol/L Chloride (98-107) mmol/L Carbon Dioxide (21-32) mmol/L Anion Gap (3-11) BUN (7-18) mg/dl Creatinine (0.6-1.4) mg/dl Est Cr Clr Drug Dosing ml/min Est GFR ( Amer) Est GFR (Non-Af Amer) BUN/Creatinine Ratio (10-20) Glucose (70-99) mg/dl POC Glucose 203 H 353 H* (70-99) mg/dl Calcium (8.5-10.1) mg/dl C-Reactive Protein (0-0.29) mg/dl Fld Lyme DNA (PCR) Synovial Source Synovial Color Synovial Appearance Synovial WBC Synovial RBC Synovial Crystals Lyme Specimen Source COVID-19 Eval Order SARS-CoV-2, RNA, NAAT (NEGATIVE) 07/14/20 Range/Units 16:25 WBC (4.8-10.8) K/uL RBC (4.7-6.1) M/uL Hgb (14.0-18.0) g/dL Hct (42-52) % MCV (80-100) fL MCH (25-34) pg MCHC (32-36) g/dL RDW Std Deviation (36.4-46.3) fL RDW Coeff of Faiza (11.5-14.5) % Plt Count (130-400) K/uL MPV (7.4-10.4) fL ESR (0-14) mm/hr Sodium (136-145) mmol/L Potassium (3.5-5.1) mmol/L Chloride (98-107) mmol/L Carbon Dioxide (21-32) mmol/L Anion Gap (3-11) BUN (7-18) mg/dl Creatinine (0.6-1.4) mg/dl Est Cr Clr Drug Dosing ml/min Est GFR ( Amer) Est GFR (Non-Af Amer) BUN/Creatinine Ratio (10-20) Glucose (70-99) mg/dl POC Glucose 362 H* (70-99) mg/dl Calcium (8.5-10.1) mg/dl C-Reactive Protein (0-0.29) mg/dl Fld Lyme DNA (PCR) Synovial Source Synovial Color Synovial Appearance Synovial WBC Synovial RBC Synovial Crystals Lyme Specimen Source COVID-19 Eval Order SARS-CoV-2, RNA, NAAT (NEGATIVE)
[2020-07-15 14:30] LABS: Appearance Synovial Fluid BLOODY; Color Synovial Fluid RED; Mononuclear WBC Synovial 21.6 %; Polynuclear WBC Synovial 78.4 %; RBC Synovial Fluid (A) 62000 /uL; Source Synovial Fluid KNEE; WBC Synovial Fluid (A) 3564 /ul (0-200)
[2020-07-15] MEDS: TAMSULOSIN HCL 0.4 MG CAP PO SCH (17:22)
[2020-07-15] MEDS: HYDROmorphone INJ 0.5 MG/0.5 ML SYR IV PRN (17:45)
[2020-07-15] MEDS: PRAVASTATIN SOD 20 MG TAB PO SCH (21:04)
[2020-07-16 06:29] LABS: Hemoglobin 12.6 g/dL (14.0-18.0); Mean Corpuscular Hemoglobin 31.9 pg (25-34); Mean Corpuscular Hgb Conc 34.1 g/dL (32-36); Mean Corpuscular Volume 93.7 fL (80-100); Mean Platelet Volume 10.4 fL (7.4-10.4); Platelet Count 441 K/uL (130-400); RDW Coefficient of Variation 12.2 % (11.5-14.5); RDW Standard Deviation 41.6 fL (36.4-46.3); Red Blood Count 3.95 M/uL (4.7-6.1); White Blood Count 17.15 K/uL (4.8-10.8)
[2020-07-16 06:59] LABS: BUN Creatinine Ratio 37.4 (10-20); Calcium 9.5 mg/dl (8.5-10.1); Creatinine Clr Calc Pharmacy 62.5 ml/min; Est GFR (African American) 61.8; Est GFR (Non-African American) 53.3; Potassium 4.3 mmol/L (3.5-5.1)
[2020-07-16 07:09] LABS: C Reactive Protein 0.77 mg/dl (0-0.29)
[2020-07-16] MEDS: HYDROcodone/ACETAMINOPHEN 10/325 TAB PO PRN ×2 (09:05→18:20)
[2020-07-16] MEDS: COLCHICINE 0.6 MG TAB PO SCH ×2 (09:06→20:58)
[2020-07-16] MEDS: SPIRONOLACTONE 12.5 MG TAB PO SCH (09:06)
[2020-07-16] MEDS: lisinopril 5 MG TAB PO SCH (09:06)
[2020-07-16] MEDS: amLODIPine BESYLATE 5 MG TAB PO SCH (09:06)
[2020-07-16] MEDS: TORSEMIDE 10 MG TAB PO SCH (09:06)
[2020-07-16] MEDS: ASPIRIN 81 MG ECTAB PO SCH (09:06)
[2020-07-16] MEDS: MULTIVITAMIN TAB PO SCH (09:06)
[2020-07-16] MEDS: PANTOprazole 40 MG TAB PO SCH (09:06)
[2020-07-16] MEDS: CITALOPRAM 20 MG TAB PO SCH (09:06)
[2020-07-16] MEDS: predniSONE 20 MG TAB PO SCH (09:08)
[2020-07-16] MEDS: INSULIN GLARGINE SOLOSTAR 100 UNITS/ML 3 ML PEN SQ SCH ×2 (09:13→20:59)
[2020-07-16] MEDS: INSULIN ASPART 100 UNITS/ML 3 ML PEN SC SCH ×4 (09:13→20:59)
--- NOTE | 2020-07-16 10:42 | Pharmacy Report ---
Pharmacy Glycemic Short Note 2 - Date of Service July 16, 2020 - Glycemic Short BSG Results (Last 24 hours): 07/15/20 07/15/20 07/15/20 11:24 16:47 16:48 Glucose POC Glucose 225 H 326 H* 341 H* 07/15/20 07/15/20 07/16/20 19:41 21:05 06:05 Glucose 128 H POC Glucose 230 H 273 H 07/16/20 07:44 Glucose POC Glucose 143 H OUTPATIENT ANTIDIABETIC REGIMEN: * Trulicity 3 mg weekly * Glipizide 15 mg BIDM * Metformin 500 mg BIDM * A1c = 10.2% on 07/05/20 ASSESSMENT: 07/16: * Pt has received 89 units of insulin over the past 24hrs * 40 units of basal with Lantus * 49 units of bolus with NovoLog * BSGs [phone] mg/dl * BSGs rise throughout the day- most likely d/t prednisone. Prednisone dose reduced to 20mg on 07/14 but we are still seeing significant steroid induced hyperglycemia along with baseline poor control per A1c. * Steroids have their most profound effect on post-prandial hyperglycemia. Will tighten CR for rising BSGs and titrate based on BSG trends. * Will also slightly increase Lantus (AM dose only) instead of adding a third insulin (NPH) steroid induced hyperglycemia. 07/15 * Patient received total of 119 units of insulin yesterday, of which 45 units were basal insulin * BSGs not well controlled in 200-300s * Fasting BSG 161 mg/dL - will continue with similar basal insulin dose as yesterday, plan to give full dose this AM despite NPO status as I anticipate BSGs to rise with prednisone * Continue same CF/CR for now 07/14 * Mr Merritt is an 80 y/o M with a PMH of uncontrolled T2DM on one injectable and two oral agents who presents with hypertensive urgency. He has been receiving prednisone 40 mg daily for several days. Overall the patient generally receives about 105 units/day with 70 units of basal and 35 units of bolus. BSGs have all (except for one) been above 200 mg/dL x 2 days. Prednisone decreased from 40 mg daily to 20 mg daily today. * This morning fasting BSG is 159 mg/dL compared to yesterday's fasting of 236 mg/dL. Will decrease basal insulin to weight-based stress of 2 dosing or around 40 units. Expect a total daily insulin dose of around 100-110 units/day even with prednisone decrease. Aim for a 40%/60% basal/bolus split so will aim for Lantus 40 units/day. Patient received 35 units the morning so give additional 10 units tonight. * For Novolog, will start with weight-based stress of 3 (also correlates with TDD of around 100 units/day). * Will not utilize NPH at this time since patient has not received while on steroids. PLAN FOR INPATIENT GLYCEMIC CONTROL: * Hold outpatient oral diabetes medications * Basal insulin * Lantus 25 units SQ AM + 20 units SQ PM * Bolus insulin * NovoLog per scale ACHS or Q6hrs while NPO * Goal Range: Low 110 mg/dL - High 140 mg/dL * Correction Factor: 12 mg/dL/unit * Nutritional / Prandial insulin per carb ratio of 1 unit per 3 grams CHO consumed PLAN FOR DISCHARGE: * A1c = 10.2% on 07/05/20 * Goal A1c ~8-8.5% based on age/co-morbidities * Pt is currently on basal insulin + metformin + Trulicity as an outpatient * May consider titrating metformin dose to max dosing of 1,000mg PO BIDM. * May consider titrating Lantus vs Trulicity to max dosing of 4.5mg weekly.
--- NOTE | 2020-07-16 11:00 | Hospitalist Progress Note ---
Date of Service July 16, 2020 Assessment & Plan (1) Asymptomatic hypertensive urgency: Ambulatory dysfunction Mechanical fall Overall patient appears to be doing okay but his primary complaint is pain in the right knee CT head and neck was negative on admission. Chest x-ray without any concerns. Facial CT with no acute fractures. Right shoulder x-ray without any concerning findings. Continue to work with PT/OT. Likely needs placement. Right Knee Pain Acute Gout S/p arthrocentesis by orthopedics twice daily found to have WBC of 10 K followed by 4K initial cultures grew Corynebacterium. Studies from yesterday are pending. Appreciate infectious disease input. Likely an episode of gout and not septic. Continue holding antibiotics for now. Continue with prednisone 20 mg daily for acute gout along with colchicine. Leukocytosis noted in the setting of steroid therapy. Other infectious work-up currently negative and antibiotics discontinued -CXR from 07/07/20:Cardiomegaly and mild basilar atelectasis. -KUB:Nonobstructive bowel gas pattern. -Negative COVID Screen -Normal Lactate, Procalcitonin 0.15- 0.19 -Blood/Urine Cx:Negative -Stool negative for C diff Hypertensive Urgency Blood pressure in the 160s this morning. Possibly component of pain as well. Continue with amlodipine and lisinopril. Continue the [employer] torsemide; was resumed at half dose. Chronic diastolic heart failure EF of 55 to 60% in 2019. Continue with [employer] Aldactone and torsemide. Continue to monitor ins and outs along with daily weights. CKD III -at baseline, avoid any nephrotoxic agents Nonocclusive CAD Continue aspirin, statin Hyperlipidemia Continue statin DM II HbA1C: 10.2 Hold PO meds Continue with insulin therapy as per pharmacy. Glucose of 128 this morning. H/O Prostate cancer S/P Radiation, Lupron DVT Px: Heparin SQ Code Status Full code Disposition Needs Rehab placement when medically stable. Currently fluid studies are pending. Likely be set up for tomorrow. Family: Patient 's Brother: [phone] Covid was negative on 07/15. Admission and Anticipated Discharge Date Admission Date: July 07, 2020 Subjective Patient was awake, alert and oriented x3 reports his primary complaint is pain in the right lower extremity. Denies any chest pain, shortness of breath, ab dominal pain, diarrhea or dysuria. Denies any fever, chills, diaphoresis or any new weakness. Review of Systems Review of Systems: All systems reviewed & are unremarkable except as noted in HPI & below Physical Exam Physical Exam: General: A&Ox3 HENT: NCAT, MMM, EOMI Eyes: PERRLA Neck: Supple, normal range of motion CVS: normal rate and rhythm Resp: b/l good breath sounds Abdomen: Soft, distended nontender Extremities: Right knee dressings intact, Neuro: No gross focal deficits appreciated Skin: warm and dry, no rashes/lesions/errythema MSK: normal ROM, no joint swelling/erythema Results & Data Results & Data ([facility]) Vital Signs (Past 12 Hours) Vital Signs Temp Pulse Pulse Resp BP Pulse Ox 07/16/20 07:23 36.6 C 71 20 168/78 H 96 07/16/20 07:00 69 07/16/20 03:00 36.5 C 67 18 151/73 H 98 07/15/20 23:24 36.6 C 67 18 122/75 93 07/15/20 23:00 76
[2020-07-16] MEDS: TAMSULOSIN HCL 0.4 MG CAP PO SCH (18:20)
[2020-07-16] MEDS: PRAVASTATIN SOD 20 MG TAB PO SCH (20:58)
[2020-07-17] MEDS: COLCHICINE 0.6 MG TAB PO SCH ×2 (08:01→22:06)
[2020-07-17] MEDS: CITALOPRAM 20 MG TAB PO SCH (08:01)
[2020-07-17] MEDS: SPIRONOLACTONE 12.5 MG TAB PO SCH (08:01)
[2020-07-17] MEDS: ASPIRIN 81 MG ECTAB PO SCH (08:02)
[2020-07-17] MEDS: predniSONE 20 MG TAB PO SCH (08:02)
[2020-07-17] MEDS: lisinopril 5 MG TAB PO SCH (08:02)
[2020-07-17] MEDS: MULTIVITAMIN TAB PO SCH (08:02)
[2020-07-17] MEDS: PANTOprazole 40 MG TAB PO SCH (08:02)
[2020-07-17] MEDS: TORSEMIDE 10 MG TAB PO SCH (08:02)
[2020-07-17] MEDS: amLODIPine BESYLATE 5 MG TAB PO SCH (08:02)
[2020-07-17] MEDS: INSULIN ASPART 100 UNITS/ML 3 ML PEN SC SCH ×4 (08:13→22:07)
[2020-07-17] MEDS: INSULIN GLARGINE SOLOSTAR 100 UNITS/ML 3 ML PEN SQ SCH ×2 (08:13→22:08)
[2020-07-17] MEDS: HYDROcodone/ACETAMINOPHEN 10/325 TAB PO PRN ×2 (08:18→16:19)
--- NOTE | 2020-07-17 10:50 | Pharmacy Report ---
Pharmacy Glycemic Short Note 2 - Date of Service July 17, 2020 - Glycemic Short BSG Results (Last 24 hours): 07/16/20 07/16/20 07/16/20 11:34 16:36 20:19 POC Glucose 184 H 145 H 195 H 07/17/20 07:40 POC Glucose 137 H OUTPATIENT ANTIDIABETIC REGIMEN: * Trulicity 3 mg weekly * Glipizide 15 mg BIDM * Metformin 500 mg BIDM * A1c = 10.2% on 07/05/20 ASSESSMENT: 07/17: * Pt has received 102 units of insulin over the past 24hrs * 45 units of basal with Lantus * 57 units of bolus with NovoLog * BSGs 521-444-938-195-137 mg/dl * AM fasting BSG in goal range- no changes needed to basal insulin . Most likely will need tapered with step down in steroid dosing. Currently ordered prednisone 20mg daily * Post-prandial BSGs slightly elevated after receiving insulin when the pre-meal BSG is in goal range. This indicates that more CHO coverage is needed. BSGs in goal range after receiving insulin when pre-meal BSG is above goal range (patient receives both CF + CR). Will loosen CF since the CR is being increased. 07/16: * Pt has received 89 units of insulin over the past 24hrs * 40 units of basal with Lantus * 49 units of bolus with NovoLog * BSGs 145-125-881-273 mg/dl * BSGs rise throughout the day- most likely d/t prednisone. Prednisone dose reduced to 20mg on 07/14 but we are still seeing significant steroid induced hyperglycemia along with baseline poor control per A1c. * Steroids have their most profound effect on post-prandial hyperglycemia. Will tighten CR for rising BSGs and titrate based on BSG trends. * Will also slightly increase Lantus (AM dose only) instead of adding a third insulin (NPH) steroid induced hyperglycemia. 07/15 * Patient received total of 119 units of insulin yesterday, of which 45 units were basal insulin * BSGs not well controlled in 200-300s * Fasting BSG 161 mg/dL - will continue with similar basal insulin dose as yesterday, plan to give full dose this AM despite NPO status as I anticipate BSGs to rise with prednisone * Continue same CF/CR for now 07/14 * Mr Merritt is an 80 y/o M with a PMH of uncontrolled T2DM on one injectable and two oral agents who presents with hypertensive urgency. He has been receiving prednisone 40 mg daily for several days. Overall the patient generally receives about 105 units/day with 70 units of basal and 35 units of bolus. BSGs have all (except for one) been above 200 mg/dL x 2 days. Prednisone decreased from 40 mg daily to 20 mg daily today. * This morning fasting BSG is 159 mg/dL compared to yesterday's fasting of 236 mg/dL. Will decrease basal insulin to weight-based stress of 2 dosing or around 40 units. Expect a total daily insulin dose of around 100-110 units/day even with prednisone decrease. Aim for a 40%/60% basal/bolus split so will aim for Lantus 40 units/day. Patient received 35 units the morning so give additional 10 units tonight. * For Novolog, will start with weight-based stress of 3 (also correlates with TDD of around 100 units/day). * Will not utilize NPH at this time since patient has not received while on steroids. PLAN FOR INPATIENT GLYCEMIC CONTROL: * Hold outpatient oral diabetes medications * Basal insulin * Lantus 25 units SQ AM + 20 units SQ PM * Bolus insulin * NovoLog per scale ACHS or Q6hrs while NPO * Goal Range: Low 110 mg/dL - High 140 mg/dL * Correction Factor: 15 mg/dL/unit * Nutritional / Prandial insulin per carb ratio of 1 unit per 2.5 grams CHO consumed PLAN FOR DISCHARGE: * A1c = 10.2% on 07/05/20 * Goal A1c ~8-8.5% based on age/co-morbidities * Pt is currently on basal insulin + metformin + Trulicity as an outpatient * May consider titrating metformin dose to max dosing of 1,000mg PO BIDM. * May consider titrating Lantus vs Trulicity to max dosing of 4.5mg weekly.
--- NOTE | 2020-07-17 13:29 | Hospitalist Progress Note ---
Date of Service July 17, 2020 Assessment & Plan (1) Asymptomatic hypertensive urgency: Ambulatory dysfunction Mechanical fall Overall patient appears to be doing okay, currently pain is well controlled. CT head and neck was negative on admission. Chest x-ray without any concerns. Facial CT with no acute fractures. Right shoulder x-ray without any concerning findings. Continue to work with PT/OT. Medically okay for discharge, facility unable to take today. Discharge tomorrow. Right Knee Pain Acute Gout S/p arthrocentesis by orthopedics twice daily found to have WBC of 10 K followed by 4K initial cultures grew Corynebacterium. Studies from 07/15 are pending. Appreciate infectious disease input. Likely an episode of gout and not septic. Continue holding antibiotics for now. Continue with prednisone 20 mg daily for acute gout along with colchicine. Leukocytosis noted in the setting of steroid therapy. Other infectious work-up currently negative and antibiotics discontinued -CXR from 07/07/20:Cardiomegaly and mild basilar atelectasis. -KUB:Nonobstructive bowel gas pattern. -Negative COVID Screen -Normal Lactate, Procalcitonin 0.15- 0.19 -Blood/Urine Cx:Negative -Stool negative for C diff Hypertensive Urgency Stable Continue with amlodipine and lisinopril. Continue the [employer] torsemide; was resumed at half dose. Chronic diastolic heart failure EF of 55 to 60% in 2019. Continue with [employer] Aldactone and torsemide. Continue to monitor ins and outs along with daily weights. CKD III -at baseline, avoid any nephrotoxic agents Nonocclusive CAD Continue aspirin, statin Hyperlipidemia Continue statin DM II HbA1C: 10.2 Hold PO meds Continue with insulin therapy as per pharmacy. Glucose of 184 this morning. H/O Prostate cancer S/P Radiation, Lupron DVT Px: Heparin SQ Code Status Full code Disposition Needs Rehab placement when medically stable. Currently fluid studies are pending. Likely be set up for tomorrow. Family: Patient 's Brother: [phone] Covid was negative on 07/15. Admission and Anticipated Discharge Date Admission Date: July 07, 2020 Subjective Overall doing okay. Currently pain is well controlled. Reports she wants to be discharged. Rest of the review of system is negative. Review of Systems Review of Systems: All systems reviewed & are unremarkable except as noted in HPI & below Physical Exam Physical Exam: General: A&Ox3 HENT: NCAT, MMM, EOMI Eyes: PERRLA Neck: Supple, normal range of motion CVS: normal rate and rhythm Resp: b/l good breath sounds Abdomen: Soft, distended nontender Extremities: Right knee dressings intact, Neuro: No gross focal deficits appreciated Skin: warm and dry, no rashes/lesions/errythema MSK: normal ROM, no joint swelling/erythema Results & Data Results & Data ([facility]) Vital Signs (Past 12 Hours) Vital Signs Temp Pulse Pulse Resp BP BP Pulse Ox 07/17/20 11:53 79 18 131/75 95 07/17/20 07:21 36.6 C 61 18 128/75 95 07/17/20 07:08 62 07/17/20 03:59 36.6 C 70 18 129/64 96
[2020-07-17] MEDS: TAMSULOSIN HCL 0.4 MG CAP PO SCH (17:17)
[2020-07-17] MEDS: PRAVASTATIN SOD 20 MG TAB PO SCH (22:06)
[2020-07-18 07:39] LABS: Basophils # (auto) 0.05 K/uL (0-0.2); Basophils % (auto) 0.2 %; Eosinophils % (auto) 1.5 %; Hematocrit (blood only) 38.3 % (42-52); Hemoglobin 12.8 g/dL (14.0-18.0); Immature Granulocytes # (auto) 0.85 K/uL (0.00-0.02); Immature Granulocytes % (auto) 4.2 %; Lymphocytes % (auto) 21.2 %; Mean Corpuscular Hemoglobin 31.3 pg (25-34); Mean Corpuscular Hgb Conc 33.4 g/dL (32-36); Mean Corpuscular Volume 93.6 fL (80-100); Monocytes # (auto) 1.08 K/uL (0.11-0.59); Monocytes % (auto) 5.3 %; Neutrophils # (auto) 13.74 K/uL (1.4-6.5); Neutrophils % (auto) 67.6 %; Platelet Count 442 K/uL (130-400); RDW Coefficient of Variation 12.3 % (11.5-14.5); RDW Standard Deviation 41.7 fL (36.4-46.3); Red Blood Count 4.09 M/uL (4.7-6.1); White Blood Count 20.32 K/uL (4.8-10.8)
[2020-07-18] MEDS: MULTIVITAMIN TAB PO SCH (08:37)
[2020-07-18] MEDS: TORSEMIDE 10 MG TAB PO SCH (08:37)
[2020-07-18] MEDS: amLODIPine BESYLATE 5 MG TAB PO SCH (08:37)
[2020-07-18] MEDS: COLCHICINE 0.6 MG TAB PO SCH (08:37)
[2020-07-18] MEDS: PANTOprazole 40 MG TAB PO SCH (08:37)
[2020-07-18] MEDS: lisinopril 5 MG TAB PO SCH (08:37)
[2020-07-18] MEDS: ASPIRIN 81 MG ECTAB PO SCH (08:37)
[2020-07-18] MEDS: CITALOPRAM 20 MG TAB PO SCH (08:38)
[2020-07-18] MEDS: predniSONE 20 MG TAB PO SCH (08:38)
[2020-07-18] MEDS: SPIRONOLACTONE 12.5 MG TAB PO SCH (08:38)
[2020-07-18] MEDS: INSULIN ASPART 100 UNITS/ML 3 ML PEN SC SCH ×2 (08:40→12:21)
[2020-07-18] MEDS ORDERED: INSULIN GLARGINE SOLOSTAR 100 UNITS/ML 3 ML PEN SQ SCH (09:00)
--- NOTE | 2020-07-18 11:54 | Discharge Summary ---
Date of Service July 18, 2020 Admission HPI Per Admitting Provider History obtained from patient, family, and records. Medical history significant for chronic diastolic heart failure (EF 55 to 60%, TTE 2018), history nonocclusive CAD as per records, hypertension, hyperlipidemia, DM2 insulin requiring, CRI (? baseline creatinine 1.7), chronic anemia (baseline hemoglobin up to 13), chronic pain, prostate cancer status post radiation, Lupron Rx, past tobacco abuse. Last confinement July 2018 for decompensated heart failure. Yesterday, patient slid off a chair landing on his bottom on the floor. No head trauma/headache, no chest pain, no S OB, no syncope. Achy pain "shooting inside" as per patient. Unable to get up from the floor. At the ER, patient refusing to go to rehab without his pain being controlled. 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 Admission Exam Per Admitting Provider GENERAL: uncomfortable, odd affect, obese, no respiratory distress SKIN: Normal color, warm HEENT: Alopecia, [place] palpebral conjunctivae, no ptosis, dry buccal mucosa NECK : Supple, short neck, no tenderness CHEST : Decreased breath sounds, no tenderness HEART : RRR, no obvious murmurs ABDOMEN: Some distention, nontender EXTREMITIES : Bilateral LE swelling, no LE tenderness, no other conspicuous deformities noted NEUROLOGIC : Coherent, no facial asymmetry, chronic RUE rest tremors, no other gross focality Principal Diagnosis Ambulatory Dysfunction Acute monoarticular arthritis of Right knee s/p aspiration x 2 Discharge Exam CONSTITUTIONAL: WNWD, vitals as above, generally well-appearing EYES: normal conjunctivae, no scleral icterus ENT: external ear and nose normal, oropharynx clear, MMM RESPIRATORY: clear to auscultation bilaterally, no crackles, rales or wheezes, normal respiratory effort CARDIOVASCULAR: regular rate and rhythm, S1 and 2 heard without murmurs, gallops or rubs, no JVD, no peripheral edema GASTROINTESTINAL: soft, nontender, nonodistended. MUSCULOSKELETAL: strength 5/5 throughout, head is normocephalic and atraumatic. He has no swelling or warmth in the right knee. He has good ROM demonstrated without pain. SKIN: warm and dry NEUROLOGIC: CN 2-12 grossly intact, no sensory deficit, normal cognition, normal speech PSYCHIATRIC: alert cooperative and oriented to person, place and time. Discharge Data Allergies Allergy/AdvReac Type Severity Reaction Status Date / Time No Known Allergies Verified 07/05/20 23:35 Consultations 07/06/20 00:41 ED Decision to Admit Stat 07/06/20 02:38 Consult Case Management - Discharge Planning Routine 07/10/20 10:07 Consult Orthopedic Surgery Routine 07/14/20 11:52 Consult Infectious Diseases Routine Procedures Performed Operation Date: 07/15/20 11:15 <No data on this case meets the specified criteria> Ordered Studies [facility], [id number] XRay Report Patient: RALPH HAQUE CAdmit Date: 07/07/20MR#: [id number]: [address] RDAcct ID:[id number]: Date: 1940[facility] Zip: [place] [id number]: 80Location: 2NSex: MRoom/Bed: J102-5Brg Phy: Sri Eubanks MDDiagnosis: HTN URGPri Phy: Latha Gómez, DOService Date: 07/10/20Fam Phy:Interpreting [facility] Ken Gaitan MD Ordering Phy: Sri Eubanks MD cc: ~ XR chest 1V portable CLINICAL HISTORY: Assess for aspiration COUGH COMPARISON STUDY: 07/07/2020 FINDINGS: The heart is enlarged. There is no failure. There are minor right basilar opacities, likely atelectatic although an infectious/inflammatory processes could appear similar[ IMPRESSION: 1. Minor right basilar opacities, statistically atelectatic 2. Cardiomegaly ACT 112: Negative or not required by law. Electronically signed by: Buddy Garza M.D. 07/10/2020 10:52 AM Dictated: 07/10/20 1051Transcribed: 07/10/20 1051 [facility], [id number] XRay Report Patient: RALPH HAQUE Date: 07/07/20MR#: [id number]: [id number] RDAcct ID:[id number]: Date: 1940[facility] Zip: [place] [id number]: 80Location: 2NSex: MRoom/Bed: J889-4Nqd Phy: Sri Eubanks MDDiagnosis: HTN URGPri Phy: Latha Gómez, DOService Date: 07/10/20Fam Phy:Interpreting Phy: Fernando Kirkpatrick MDAdmit Phy: Ken Gaitan MD Ordering Phy: Sri Eubanks MD cc: ~ XR knee RT 1 or 2V routine CLINICAL HISTORY: Right knee pain and swelling COMPARISON STUDY: None. FINDINGS: 2 views of the right knee were submitted for review. 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 The hardware is intact. No abnormal periprosthetic lucency. No fracture or dislocation within the right knee. There is a moderate joint effusion and mild anterior soft tissue swelling. Small ossific densities at the distal quadriceps tendon are likely chronic. There is also thickening at the distal quadriceps tendon. There is mild patella baja. Therefore, these findings could represent a quadriceps tendon injury/tear. IMPRESSION: 1. Moderate joint effusion. 2. Thickening of the distal quadriceps tendon with mild patella baja. Therefore, this could represent a quadriceps tendon injury/tear. ACT 112: Negative or not required by law. Electronically signed by: Fernando Kirkpatrick M.D. 07/10/2020 10:53 AM Dictated: 07/10/20 1051Transcribed: 07/10/20 1051 Diabetes Follow up Diabetes Follow-up Needed for HgbA1c >9% Hospital Course (1) Monoarticular arthritis: (2) Gout attack: (3) Weakness: (4) Fall: (5) Type 2 diabetes mellitus: The patient is an 80-year-old man who presented with concern for right- sided head and neck pain after a fall. He took oruz-hzl-vulmran medications without relief at home. Prior to discharge from the ER he was unsuccessful while attempting to ambulate as he was too weak to do so. With this new fall risk it was considered unsafe to send him home as he lives by himself. Therefore, he was admitted to the hospitalist service. He had an elevated blood pressure on admission and amlodipine was initiated. Lisinopril and diuretics were held in response to worsening renal function (creatinine 1.67). Multiple imaging studies including a head CT, neck CT, chest x-ray, face CT, right shoulder x-ray, rib x-ray revealed no evidence of acute fracture or acute pathology. The patient developed nausea, vomiting and was febrile a couple of days later with coughing was thought to have bronchitis. He was started on doxycycline and Rocephin. He did have some diarrhea and stool sample was negative for C. difficile. Based on his elevated leukocytosis and worsening right knee pain consideration was given to an inflamed versus a septic joint. Orthopedics was consulted and saw the patient on 07/10. They performed an aspiration in the setting of a prior right total knee arthroplasty many years ago. No erythema or induration was noted but he did have pain with range of motion which was concerning for periprosthetic infection. Lab studies revealed an ESR of C 72 a CRP of 14 and a hemoglobin A1c of 10.2. Fortunately, knee aspirate did not show any gross purulent fluid. White blood cell count of the knee aspirate fluid showed only 10,732 white blood cells with gout crystals noted. Gram stain and culture revealed evidence of Corynebacterium spp. And infectious disease was consulted. He was started on prednisone 40 mg daily on 07/10. Colchicine was later started on 07/12 at 0.6 mg p.o. twice daily. Prednisone was deescalated to 20 mg daily on 07/14. Infectious disease recommended as an option to hold the ceftriaxone which was held on 07/14 and monitor for clinical improvement with treatment for gout. The right knee aspiration was performed again on 07/[address] Fernandes from orthopedics. The Gram stain was negative and culture revealed preliminary no growth to date at time of discharge on 07/18. Although the culture has not completely finalized, the corynebacterium species was considered to be a contaminant from the initial tap on 07/10 and the patient is exhibiting clinical improvement consistent with an acute gout flare. His blood pressure is controlled and is 118/72 on day of discharge. He was discharged in stable condition to [facility] for continued rehabilitation as a transition of care to home. Close primary care follow-up is recommended to continue monitoring and treatment of gout. Diuretics may need to be titrated as outpatient to avoid gout flares in the future. The patient will also be needs to be educated on a low purine diet. Total Time Total Time Spent Total Time Spent (In Minutes): 60 Total Time Includes: Examination of the Patient, Discharge Planning, Medication Reconciliation and Communication With Other Providers Discharge Plan Discharge Items Patient Disposition: Transfer [facility] Reason For Visit: HTN URG Discharge Diagnosis: Ambulatory Dysfunction Acute monoarticular arthritis of Right knee s/p aspiration x 2 Condition on Discharge: Good Activity: Resume your previous activity Non-emergency contact: Primary Care Provider Call non-emergency contact if: you have any medication questions, your pain is not controlled and you have a fever Follow-up/Referrals: Latha Gómez DO [Primary Care Provider] - Diet: Carb Consistent or DM2 Addtl Attending Provider Instructions: Please take all medications as instructed on discharge as below. Please note that you have been diagnosed with gout of your right knee. Gout seems to be the reason your knee was inflamed during this hospitalization. It has improved with prednisone therapy which will be tapered off over the next couple of days. Additionally he will be starting a daily medicine called colchicine to take regardless of pain as a scheduled medication. This medication should act as a prophylaxis for a gout flare moving forward. It may need to be titrated by your primary care physician, and therefore, a follow-up with your primary care physician 1 week after discharge from the rehab center would be strongly recommended. It was a pleasure taking care of you! Please call if you have any questions or problems. You can reach a [facility] hospitalist on duty at [facility] 24 hours a day by calling [phone]. Take care of yourself. DO Kaycee Gregg Hospitalist Pending Studies at Discharge: Yes Studies:: finalized joint aspirate Stand-Alone Forms: My [facility] Skilled Items Patient informed of condition?: Yes DNR: No Discharge Level of Care: Skilled Communicable Disease: No Discharge Prognosis: Stable Lines: None Urinary Catheter: No Medications and DC Order Prescriptions: New colchicine [Colcrys] 0.6 mg Tablet 0.6 mg PO DAILY Qty: 30 RF: 1 prednisone 10 mg tablet 10 mg PO DAILY Qty: 3 RF: 0 Continued multivitamin Tablet 1 tab PO DAILY RF: 0 lisinopril 5 mg Tablet 5 mg PO DAILY RF: 0 metformin 500 mg Tablet Extended Release 24 Hr 500 mg PO BID RF: 0 Trulicity 3 mg/0.5 mL Pen Injector 3 mg SUBCUT Q7D RF: 0 cod liver oil Capsule 1 cap PO DAILY RF: 0 hydrocodone-acetaminophen 10-325 mg tablet 1 tab PO TID PRN (Reason: Pain) RF: 0 aspirin 81 mg Tablet,Delayed Release (Dr/Ec) 81 mg PO DAILY RF: 0 spironolactone 25 mg tablet 12.5 mg PO DAILY RF: 0 citalopram 20 mg tablet 20 mg PO DAILY RF: 0 tamsulosin 0.4 mg capsule 0.8 mg PO DAILY@1800 RF: 0 esomeprazole magnesium 40 mg capsule,delayed release(DR/EC) 40 mg PO DAILY RF: 0 lidocaine [Lidoderm] 5 % Adhesive Patch,Medicated 1 patch TOPICAL DAILY PRN (Reason: Pain) RF: 0 pravastatin [Pravachol] 20 mg Tablet 20 mg PO HS RF: 0 potassium chloride 10 mEq tablet,ER particles/crystals 10 meq PO DAILY RF: 0 Lantus Solostar U-100 Insulin 100 unit/mL (3 mL) insulin pen 35 units subcut BID RF: 0 omega 9-hbf-dda-fish oil 1,000 mg (120 mg-180 mg) Capsule 1 cap PO DAILY RF: 0 ddhny-bmfdq-7-vhl-zhr-wrglat [krill oil] 138-88-50-50 mg Capsule 1 cap PO DAILY RF: 0 guaifenesin 600 mg Tablet Extended Release 12hr 600 mg PO BID PRN (Reason: Congestion) RF: 0 ascorbic acid (vitamin C) 500 mg Capsule 500 mg PO DAILY RF: 0 torsemide 20 mg tablet 40 mg PO DAILY Qty: 0 RF: 0 Discharge Orders: Discharge Order (Routine); Ordered 07/18/20 Ordered By: Alina Patrick Admission Data Admit Date/Time: 07/07/20 14:11 Attending Provider: Alina Patrick Admit Provider: Ken Gaitan Primary Care Provider: Latha Gómez Other Providers: Ken Gaitan ; Lito Arguello ; Tashia Newell ; Guillaume Herzog Carlos M. ; Wesley Merida ; Zohaib Maurer I. ; Mesfin Green II ; Palmira Evans ; Fredis Guzman
[2020-07-18] MEDS: HYDROcodone/ACETAMINOPHEN 10/325 TAB PO PRN (12:59)
[2020-07-21 02:41] LABS: Lyme DNA PCR CSF or Synovial Not detected (Not Detected); Lyme DNA Source Synovial Fluid
== END 2020-07-18 14:45 | DRG 554 ==
LOC: ED 21:22 → 2N 21:22 → SUATTDRO 07-07 14:11 → 2N 07-14 16:38

== ENCOUNTER 2021-10-26 02:54 | Inpatient (IN) ==
[2021-10-26] MEDS ORDERED: ACETAMINOPHEN 500 MG TAB PO STA (03:20)
[2021-10-26] MEDS ORDERED: SODIUM CHLORIDE 0.9% 500 ML IV SCH (03:30)
[2021-10-26 03:40] LABS: Basophils # (auto) 0.02 K/uL (0-0.2); Basophils % (auto) 0.1 %; Eosinophils # (auto) 0.04 K/uL (0-0.5); Eosinophils % (auto) 0.3 %; Hematocrit (blood only) 43.4 % (42-52); Hemoglobin 14.7 g/dL (14.0-18.0); Immature Granulocytes # (auto) 0.11 K/uL (0.00-0.02); Immature Granulocytes % (auto) 0.7 %; Lymphocytes # (auto) 1.47 K/uL (1.2-3.4); Lymphocytes % (auto) 9.2 %; Mean Corpuscular Hemoglobin 31.1 pg (25-34); Mean Corpuscular Hgb Conc 33.9 g/dL (32-36); Mean Corpuscular Volume 91.9 fL (80-100); Mean Platelet Volume 11.1 fL (7.4-10.4); Monocytes # (auto) 0.96 K/uL (0.11-0.59); Neutrophils # (auto) 13.38 K/uL (1.4-6.5); Neutrophils % (auto) 83.7 %; Platelet Count 277 K/uL (130-400); RDW Coefficient of Variation 13.2 % (11.5-14.5); RDW Standard Deviation 44.3 fL (36.4-46.3); Red Blood Count 4.72 M/uL (4.7-6.1); White Blood Count 15.98 K/uL (4.8-10.8)
[2021-10-26 03:43] LABS: Appearance Urine Turbid (Clear); Bacteria Urine Automated 4+ (Negative); Bilirubin Urine Negative (Negative); Blood Urine 2+ (Negative); Color Urine Yellow; Epithelial Cell Urine Auto >30 /lpf (0-5); Glucose Urine UA 3+ (Negative); Ketones Urine Negative (Negative); Leukocyte Esterase Urine 2+ (Negative); Nitrite Urine Positive (Negative); Protein Urine Negative (Negative); RBC Urine Automated 0-4 /hpf (0-4); Specific Gravity Urine 1.025 (1.000-1.030); Urobilinogen Urine Negative (Negative); WBC Urine Automated >30 /hpf (0-5); pH Urine 7.5 (4.5-7.5)
[2021-10-26 04:05] LABS: Albumin Globulin Ratio 1.1 (0.9-2); Albumin Level 4.2 gm/dl (3.4-5.0); BUN Creatinine Ratio 23.6 (10-20); Bilirubin,Total 1.1 mg/dl (0.2-1.0); Calcium 9.8 mg/dl (8.5-10.1); Creatinine Clr Calc Pharmacy 42.3 ml/min; Est GFR (Non-African American) 34.5 ml/min; Globulin 3.8 gm/dl (2.5-4.0); Magnesium 2.2 mg/dl (1.7-2.4); Potassium 4.5 mmol/L (3.5-5.1); Troponin I High Sensitivity 12.4 pg/ml (0-20)
[2021-10-26 04:15] LABS: Influenza A virus by PCR Negative (Neg); Influenza B virus by PCR Negative (Neg); RSV by PCR Negative (Neg); SARS CoV2 RNA(COVID-19) InHosp NEGATIVE (Negative)
[2021-10-26] MEDS ORDERED: PIPERACILLIN/TAZOBACTAM 4.5 GM in DEXTROSE 5% 100 ML IV SCH (04:30)
[2021-10-26] MEDS ORDERED: INSULIN GLARGINE SOLOSTAR 100 UNITS/ML 3 ML PEN SC STA (04:41)
[2021-10-26] MEDS ORDERED: PIPERACILLIN/TAZOBACTAM 4.5 GM/120 ML BAG IV STA (04:43)
--- NOTE | 2021-10-26 05:06 | History & Physical Report ---
Date of Service October 26, 2021 Assessment & Plan (1) Encephalopathy: Plan: Multifactorial: Severe sepsis (SIRS plus ARF on CKD) secondary to complicated UTI, hx prostate cancer status post radiation, Lupron Rx rule out kidney stone given back pain complaints Home neuropsychotropic meds contributory. History of chronic pain Ambulatory dysfunction chronic diastolic heart failure (EF 55 to 60%, TTE 2018), patient on the dry side history nonocclusive CAD as per records hyperlipidemia on statin Rx DM2 insulin requiring, suboptimal control as of recent outpatient hemoglobin A1c of 9.2, July 2021 chronic anemia, hemoglobin better than baseline secondary to hemoconcentration Functional disability past tobacco abuse Medical telemetry CS, cefepime Hold lisinopril and home diuretic until baseline creatinine known Baseline UA, monitor creatinine response to IVF Basal insulin, ISS BG goal [id number], carb count coverage, update hemoglobin A1c PT OT eval DVT prophylaxis. Heparin subcu Full code Patient requesting for Ms. Maria Dolores Cardenas (patient trusted friend) to be updated of plan of care. Contact #[phone]. Text document was generated using [employer]uz[employer] voice recognition software. It may contain grammatical or spelling errors. Kindly contact undersigned for clarification of any documentation item in question. History of Present Illness Primary Care Provider: Latha Gómez, History obtained from patient, family, and records. Limited history from patient secondary to disorientation. Medical history significant for chronic diastolic heart failure (EF 55 to 60%, TTE 2019), history nonocclusive CAD as per records, hypertension, hyperlipidemia, DM2 insulin requiring, CRI (? baseline creatinine 1.7), chronic hyponatremia, chronic anemia (baseline hemoglobin up to 13), chronic pain, prostate cancer status post radiation/Lupron Rx, Parkinson's disease, past tobacco abuse. Last confinement June 2020 for ambulatory dysfunction and monoarticular arthritis. Patient discharged to rehab before going home. On follow-up visit at PCPs office 3 months ago, patient noted to be noncompliant with home PT. Intermittent falls at home. Patient has been residing with 2 good friends at his home. Patient noted to have resting upper extremity tremors during visit. Sinemet started for possible Parkinson's disease. 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, lives with his dog Allergies Allergy/AdvReac Type Severity Reaction Status Date / Time No Known Allergies Verified 10/26/21 03:07 Home Medications Medication Instructions Recorded Confirmed Type ascorbic acid (vitamin C) 500 mg 500 mg PO DAILY 07/31/18 10/26/21 History capsule aspirin 81 mg tablet,delayed 81 mg PO DAILY 07/31/18 10/26/21 History release cod liver oil 1 cap PO DAILY 07/31/18 10/26/21 History guaifenesin 600 mg tablet, 600 mg PO BID PRN 07/31/18 10/26/21 History extended release 12 hr hydrocodone 10 mg-acetaminophen 1 tab PO TID PRN 07/31/18 10/26/21 History 325 mg tablet insulin glargine 100 unit/mL (3 35 units SUBCUT BID 07/31/18 10/26/21 History mL) subcutaneous pen (Lantus Solostar U-100 Insulin) krill 1 cap PO DAILY 07/31/18 10/26/21 History ams-ua-6-dux-gkr-ceobzxpsvtjhr 300 mg-90 mg-24 mg-50 mg capsule (krill oil) omega 6-eij-ztq-fish oil 1,000 mg 1 cap PO DAILY 07/31/18 10/26/21 History (120 mg-180 mg) capsule potassium chloride 10 mEq 10 meq PO DAILY 07/31/18 10/26/21 History tablet,extended release(part/cryst) spironolactone 25 mg tablet 12.5 mg PO DAILY 07/31/18 10/26/21 History tamsulosin 0.4 mg capsule 0.8 mg PO DAILY@1800 07/31/18 10/26/21 History multivitamin 1 tab PO DAILY 07/05/20 10/26/21 History dulaglutide 3 mg/0.5 mL 3 mg SUBCUT WK 07/07/20 10/26/21 History subcutaneous pen injector (Trulicity) metformin 500 mg tablet,extended 500 mg PO BID 07/07/20 10/26/21 History release 24 hr allopurinol 300 mg tablet 300 mg PO QAM 10/26/21 10/26/21 History carbidopa 25 mg-levodopa 100 mg 0.5 tab PO BID 10/26/21 10/26/21 History tablet empagliflozin 10 mg tablet 10 mg PO DAILY 10/26/21 10/26/21 History (Jardiance) gabapentin 100 mg capsule 100 mg PO BID 10/26/21 10/26/21 History pantoprazole 40 mg tablet,delayed 40 mg PO DAILY 10/26/21 10/26/21 History release pravastatin 20 mg tablet 20 mg PO HS 10/26/21 10/26/21 History torsemide 20 mg tablet 20 mg PO DAILY 10/26/21 10/26/21 History Past Med/Surg History Medical History Chronic back pain Chronic diastolic heart failure Diaphragmatic hernia Diverticulitis GERD (gastroesophageal reflux disease) Hyperlipidemia Hypertension Narcotic dependence Prostate cancer "Prostate, adenocarcinoma, cristina 3 + 3, PSA 6.66, cT1c, group I TREATMENT: Prostate seed implant - Cesium 131 - 06/30/2011 - monotherapy alone, Lupron for 6 months prior to implantation." Type 2 diabetes mellitus Venous insufficiency Surgical History History of hip replacement History of knee replacement Status post hernia repair Family History Mother Stroke Social History Smoking Status: Former smoker Second Hand Exposure: No; Hx Alcohol Use: Yes (quit) Alcohol Intake Frequency Comment: history of daily use, recently quit Hx Substance Use: No Preferred Language: Norwegian Communication Ability: Impaired Detective Lieutenant Required: No Beliefs That Will Affect Care: None marital status: Current Living Situation: Alone current occupational status: retired Feels Safe at Home: Yes Assistive Devices: Denture - Upper, Denture - Lower and Glasses Results & Data Results & Data ([facility]) Vital Signs (Past 12 Hours) Vital Signs Temp Pulse Pulse Resp BP BP Pulse Ox 10/26/21 04:37 37.7 C H 98 H 18 126/78 95 10/26/21 04:00 99 H 22 142/85 H 96 10/26/21 03:30 95 10/26/21 03:03 37.7 C H 105 H 24 137/89 95 Laboratory Results Laboratory Results WBC 15.98 K/uL (4.8-10.8) H 10/26/21 03:27 RBC 4.72 M/uL (4.7-6.1) 10/26/21 03:27 Hgb 14.7 g/dL (14.0-18.0) 10/26/21 03:27 Hct 43.4 % (42-52) 10/26/21 03:27 MCV 91.9 fL (80-100) 10/26/21 03:27 MCH 31.1 pg (25-34) 10/26/21 03:27 MCHC 33.9 g/dL (32-36) 10/26/21 03:27 RDW Std Deviation 44.3 fL (36.4-46.3) 10/26/21 03:27 RDW Coeff of [place] 13.2 % (11.5-14.5) 10/26/21 03:27 Plt Count 277 K/uL (130-400) 10/26/21 03:27 MPV 11.1 fL (7.4-10.4) H 10/26/21 03:27 Immature Gran % (Auto) 0.7 % 10/26/21 03:27 Neut % (Auto) 83.7 % 10/26/21 03:27 Lymph % (Auto) 9.2 % 10/26/21 03:27 [place] % (Auto) 6.0 % 10/26/21 03:27 Eos % (Auto) 0.3 % 10/26/21 03:27 Baso % (Auto) 0.1 % 10/26/21 03:27 Neut # (Auto) 13.38 K/uL (1.4-6.5) H 10/26/21 03:27 Lymph # (Auto) 1.47 K/uL (1.2-3.4) 10/26/21 03:27 [place] # (Auto) 0.96 K/uL (0.11-0.59) H 10/26/21 03:27 Eos # (Auto) 0.04 K/uL (0-0.5) 10/26/21 03:27 Baso # (Auto) 0.02 K/uL (0-0.2) 10/26/21 03:27 Immature Gran # (Auto) 0.11 K/uL (0.00-0.02) H 10/26/21 03:27 Sodium 133 mmol/L (136-145) L 10/26/21 03:27 Potassium 4.5 mmol/L (3.5-5.1) 10/26/21 03:27 Chloride 97 mmol/L (98-107) L 10/26/21 03:27 Carbon Dioxide 26 mmol/L (21-32) 10/26/21 03:27 Anion Gap 10 (3-11) 10/26/21 03:27 BUN 42 mg/dl (6-23) H 10/26/21 03:27 Creatinine 1.78 mg/dl (0.6-1.4) H 10/26/21 03:27 Est Cr Clr Drug Dosing 42.3 ml/min 10/26/21 03:27 Est GFR ( Amer) 40.0 ml/min 10/26/21 03:27 Est GFR (Non-Af Amer) 34.5 ml/min 10/26/21 03:27 BUN/Creatinine Ratio 23.6 (10-20) H 10/26/21 03:27 Glucose 366 mg/dl (70-99(Fasting)) H* 10/26/21 03:27 Lactate 2.1 mmol/L (0.4-2.0) H* 10/26/21 03:42 Calcium 9.8 mg/dl (8.5-10.1) 10/26/21 03:27 Magnesium 2.2 mg/dl (1.7-2.4) 10/26/21 03:27 Total Bilirubin 1.1 mg/dl (0.2-1.0) H 10/26/21 03:27 AST 44 U/L (13-39) H 10/26/21 03:27 ALT 54 U/L (7-52) H 10/26/21 03:27 Alkaline Phosphatase 174 U/L (34-104) H 10/26/21 03:27 Troponin I High Sens 12.4 pg/ml (0-20) 10/26/21 03:27 Total Protein 8.0 gm/dl (6.0-8.3) 10/26/21 03:27 Albumin 4.2 gm/dl (3.4-5.0) 10/26/21 03:27 Globulin 3.8 gm/dl (2.5-4.0) 10/26/21 03:27 Albumin/Globulin Ratio 1.1 (0.9-2) 10/26/21 03:27 TSH 1.527 uIu/ml (0.300-4.500) 10/26/21 03:27 Urine Color Yellow 10/26/21 03:20 Urine Appearance Turbid (Clear) A 10/26/21 03:20 Urine pH 7.5 (4.5-7.5) 10/26/21 03:20 Ur Specific [place] 1.025 (1.000-1.030) 10/26/21 03:20 Urine Protein Negative (Negative) 10/26/21 03:20 Urine Glucose (UA) 3+ (Negative) H 10/26/21 03:20 Urine Ketones Negative (Negative) 10/26/21 03:20 Urine Blood 2+ (Negative) H 10/26/21 03:20 Urine Nitrite Positive (Negative) A 10/26/21 03:20 Urine Bilirubin Negative (Negative) 10/26/21 03:20 Urine Urobilinogen Negative (Negative) 10/26/21 03:20 Ur Leukocyte Esterase 2+ (Negative) H 10/26/21 03:20 Urine WBC (Auto) >30 /hpf (0-5) H 10/26/21 03:20 Urine RBC (Auto) 0-4 /hpf (0-4) 10/26/21 03:20 U Hyaline Cast (Auto) 1-5 /lpf (0-5) 10/26/21 03:20 U Epithel Cells (Auto) >30 /lpf (0-5) H 10/26/21 03:20 Urine Bacteria (Auto) 4+ (Negative) H 10/26/21 03:20 Urine Yeast Budding w/ Hyphae (None Prsent) A 10/26/21 03:20 SARS-CoV-2 (PCR) NEGATIVE (Negative) 10/26/21 03:20 Influenza Type A (PCR) Negative (Neg) 10/26/21 03:20 Influenza Type B (PCR) Negative (Neg) 10/26/21 03:20 RSV (RT-PCR) Negative (Neg) 10/26/21 03:20
[2021-10-26] MEDS ORDERED: LACTATED RINGER'S 1,000 ML IV STA (05:44)
--- NOTE | 2021-10-26 05:45 | Emergency Department Note ---
ED Provider Note CHIEF COMPLAINT: weakness, unable to stand up and called ambulance HISTORY OF PRESENT ILLNESS: This 81-year-old male patient presents to the [facility] department presents emergency department with complaints of weakness and inability to stand up off the toilet. Patient called the ambulance for assistance. He states he has been somewhat shaky today just cannot get power in his legs. He denies any falls or head injuries. He did not vomit, he denies chest pain, fevers. The patient has had no significant abdominal pain or urinary symptoms. He states he does live at home with 2 roommates and his landlord just recently had COVID. REVIEW OF SYSTEMS: A review of systems was performed with positives and pertinent negatives listed in the history of present illness. 10 systems were reviewed and are otherwise negative. ALLERGIES: see below MEDICATIONS: see below PMH: see below SOCIAL HISTORY: see below DDx: Infection, dehydration, metabolic abnormality, hypo/hyperglycemia, electrolyte disturbance, anemia, hypoxia, cardiac sources, intracerebral event, toxicologic, neurologic, as well as other pathologies. PHYSICAL EXAM: Vital signs reviewed. General: Well-appearing 81-year-old male, in no significant distress. HEENT: No scleral icterus, PERRLA, neck supple. Atraumatic. Cardiovascular: Regular rate and rhythm, no extra sounds. Pulmonary: Clear to auscultation bilaterally, normal work of breathing. Abdomen: Soft, nontender, nondistended, positive bowel sounds. Musculoskeletal: Distended, no significant tympany to percussion Neurologic: Patient awake alert and oriented x 3, speech is clear Skin: Warm, dry, no rash EMERGENCY DEPARTMENT COURSE/MDM: Patient was evaluated and appeared to be in no significant distress. IV access was obtained and laboratory work was drawn. Patient was noted to be in a normal sinus rhythm. He was hydrated with normal saline solution medicated with IV Toradol and Zofran. The patient's laboratory work is fairly reassuring. MONITORING: An order for cardiac monitoring was placed and the patient is noted to be in a [] at [] beats per minute. RADIOLOGY: EKG: DISPOSITION: Past Med/Surg History Medical History Chronic back pain Chronic diastolic heart failure Diaphragmatic hernia Diverticulitis GERD (gastroesophageal reflux disease) Hyperlipidemia Hypertension Narcotic dependence Prostate cancer "Prostate, adenocarcinoma, cristina 3 + 3, PSA 6.66, cT1c, group I TREATMENT: Prostate seed implant - Cesium 131 - 06/30/2011 - monotherapy alone, Lupron for 6 months prior to implantation." Type 2 diabetes mellitus Venous insufficiency Surgical History History of hip replacement History of knee replacement Status post hernia repair Family History Mother Stroke Social History Smoking Status: Former smoker Second Hand Exposure: No; Hx Alcohol Use: Yes (quit) Alcohol Intake Frequency Comment: history of daily use, recently quit Hx Substance Use: No Preferred Language: Salvadorean Communication Ability: Impaired Cna Instructor Required: No Beliefs That Will Affect Care: None marital status: Current Living Situation: Alone current occupational status: retired Feels Safe at Home: Yes Assistive Devices: Denture - Upper, Denture - Lower and Glasses Allergies Allergies Allergy/AdvReac Type Severity Reaction Status Date / Time No Known Allergies Verified 10/26/21 03:07 Home Meds Home Medications Medication Instructions Recorded Confirmed ascorbic acid (vitamin C) 500 mg 500 mg PO DAILY 07/31/18 10/26/21 capsule aspirin 81 mg tablet,delayed 81 mg PO DAILY 07/31/18 10/26/21 release cod liver oil 1 cap PO DAILY 07/31/18 10/26/21 guaifenesin 600 mg tablet, 600 mg PO BID PRN 07/31/18 10/26/21 extended release 12 hr hydrocodone 10 mg-acetaminophen 1 tab PO TID PRN 07/31/18 10/26/21 325 mg tablet insulin glargine 100 unit/mL (3 35 units SUBCUT BID 07/31/18 10/26/21 mL) subcutaneous pen (Lantus Solostar U-100 Insulin) krill 1 cap PO DAILY 07/31/18 10/26/21 irp-[id number]-6-[id number]-edczxtvwyxoix 300 mg-90 mg-24 mg-50 mg capsule (krill oil) omega 1-mda-bgi-fish oil 1,000 mg 1 cap PO DAILY 07/31/18 10/26/21 (120 mg-180 mg) capsule potassium chloride 10 mEq 10 meq PO DAILY 07/31/18 10/26/21 tablet,extended release(part/cryst) spironolactone 25 mg tablet 12.5 mg PO DAILY 07/31/18 10/26/21 tamsulosin 0.4 mg capsule 0.8 mg PO DAILY@1800 07/31/18 10/26/21 multivitamin 1 tab PO DAILY 07/05/20 10/26/21 dulaglutide 3 mg/0.5 mL 3 mg SUBCUT WK 07/07/20 10/26/21 subcutaneous pen injector (Trulicity) metformin 500 mg tablet,extended 500 mg PO BID 07/07/20 10/26/21 release 24 hr allopurinol 300 mg tablet 300 mg PO QAM 10/26/21 10/26/21 carbidopa 25 mg-levodopa 100 mg 0.5 tab PO BID 10/26/21 10/26/21 tablet empagliflozin 10 mg tablet 10 mg PO DAILY 10/26/21 10/26/21 (Jardiance) gabapentin 100 mg capsule 100 mg PO BID 10/26/21 10/26/21 pantoprazole 40 mg tablet,delayed 40 mg PO DAILY 10/26/21 10/26/21 release pravastatin 20 mg tablet 20 mg PO HS 10/26/21 10/26/21 torsemide 20 mg tablet 20 mg PO DAILY 10/26/21 10/26/21 Results & Data (ED) Vital Signs Vital Signs - 24 hr 10/26/21 03:03 10/26/21 03:30 10/26/21 04:00 Temperature 37.7 C H Temperature Source Oral Pulse Rate 105 H Pulse Rate [Apical] 99 H Respiratory Rate 24 22 Respiratory Effort / Characteristics Non-Labored Spontaneous Respiratory Depth Normal Respiratory Pattern Blood Pressure 137/89 Blood Pressure [Right Arm] 142/85 H Blood Pressure Mean 105 Blood Pressure Mean [Right Arm] 104 Blood Pressure Position [Right Arm] Semi-fowlers Pulse Oximetry 95 95 96 Oxygen Delivery Method Room Air Room Air Room Air Sepsis New/Unexplained Change in Mental Status N/A Sepsis Action Taken by Nursing Physician Notified 10/26/21 04:37 10/26/21 05:47 Temperature 37.7 C H 37.2 C Temperature Source Oral Oral Pulse Rate Pulse Rate [Apical] 98 H 86 Respiratory Rate 18 16 Respiratory Effort / Characteristics Non-Labored Spontaneous Respiratory Depth Normal Respiratory Pattern Regular Blood Pressure Blood Pressure [Right Arm] 126/78 121/68 Blood Pressure Mean Blood Pressure Mean [Right Arm] 94 85 Blood Pressure Position [Right Arm] Semi-fowlers Pulse Oximetry 95 94 Oxygen Delivery Method Room Air Room Air Sepsis New/Unexplained Change in Mental Status Sepsis Action Taken by Nursing Laboratory Data Result diagrams: 10/26/21 03:27 10/26/21 03:27 Lab Results 10/26/21 10/26/21 10/26/21 Range/Units 03:20 03:20 03:27 WBC (4.8-10.8) K/uL RBC (4.7-6.1) M/uL Hgb (14.0-18.0) g/dL Hct (42-52) % MCV (80-100) fL MCH (25-34) pg MCHC (32-36) g/dL RDW Std Deviation (36.4-46.3) fL RDW Coeff of Faiza (11.5-14.5) % Plt Count (130-400) K/uL MPV (7.4-10.4) fL Immature Gran % (Auto) % Neut % (Auto) % Lymph % (Auto) % Elk % (Auto) % Eos % (Auto) % Baso % (Auto) % Neut # (Auto) (1.4-6.5) K/uL Lymph # (Auto) (1.2-3.4) K/uL Elk # (Auto) (0.11-0.59) K/uL Eos # (Auto) (0-0.5) K/uL Baso # (Auto) (0-0.2) K/uL Immature Gran # (Auto) (0.00-0.02) K/uL Sodium 133 L (136-145) mmol/L Potassium 4.5 (3.5-5.1) mmol/L Chloride 97 L (98-107) mmol/L Carbon Dioxide 26 (21-32) mmol/L Anion Gap 10 (3-11) BUN 42 H (6-23) mg/dl Creatinine 1.78 H (0.6-1.4) mg/dl Est Cr Clr Drug Dosing 42.3 ml/min Est GFR ( Amer) 40.0 ml/min Est GFR (Non-Af Amer) 34.5 ml/min BUN/Creatinine Ratio 23.6 H (10-20) Glucose 366 H* (70-99(Fasting)) mg/dl POC Glucose (70-99) mg/dl Lactate (0.4-2.0) mmol/L Calcium 9.8 (8.5-10.1) mg/dl Magnesium 2.2 (1.7-2.4) mg/dl Total Bilirubin 1.1 H (0.2-1.0) mg/dl AST 44 H (13-39) U/L ALT 54 H (7-52) U/L Alkaline Phosphatase 174 H (34-104) U/L Ammonia (18-72) umol/L Total Creatine Kinase (30-223) U/L Troponin I High Sens 12.4 (0-20) pg/ml Total Protein 8.0 (6.0-8.3) gm/dl Albumin 4.2 (3.4-5.0) gm/dl Globulin 3.8 (2.5-4.0) gm/dl Albumin/Globulin Ratio 1.1 (0.9-2) TSH (0.300-4.500) uIu/ml Urine Color Yellow Urine Appearance Turbid A (Clear) Urine pH 7.5 (4.5-7.5) Ur Specific Severn 1.025 (1.000-1.030) Urine Protein Negative (Negative) Urine Glucose (UA) 3+ H (Negative) Urine Ketones Negative (Negative) Urine Blood 2+ H (Negative) Urine Nitrite Positive A (Negative) Urine Bilirubin Negative (Negative) Urine Urobilinogen Negative (Negative) Ur Leukocyte Esterase 2+ H (Negative) Urine WBC (Auto) >30 H (0-5) /hpf Urine RBC (Auto) 0-4 (0-4) /hpf U Hyaline Cast (Auto) 1-5 (0-5) /lpf U Epithel Cells (Auto) >30 H (0-5) /lpf Urine Bacteria (Auto) 4+ H (Negative) Urine Yeast Budding w/ Hyphae A (None Prsent) SARS-CoV-2 (PCR) NEGATIVE (Negative) Influenza Type A (PCR) Negative (Neg) Influenza Type B (PCR) Negative (Neg) RSV (RT-PCR) Negative (Neg) 10/26/21 10/26/21 10/26/21 Range/Units 03:27 03:27 03:27 WBC 15.98 H (4.8-10.8) K/uL RBC 4.72 (4.7-6.1) M/uL Hgb 14.7 (14.0-18.0) g/dL Hct 43.4 (42-52) % MCV 91.9 (80-100) fL MCH 31.1 (25-34) pg MCHC 33.9 (32-36) g/dL RDW Std Deviation 44.3 (36.4-46.3) fL RDW Coeff of Faiza 13.2 (11.5-14.5) % Plt Count 277 (130-400) K/uL MPV 11.1 H (7.4-10.4) fL Immature Gran % (Auto) 0.7 % Neut % (Auto) 83.7 % Lymph % (Auto) 9.2 % Elk % (Auto) 6.0 % Eos % (Auto) 0.3 % Baso % (Auto) 0.1 % Neut # (Auto) 13.38 H (1.4-6.5) K/uL Lymph # (Auto) 1.47 (1.2-3.4) K/uL Elk # (Auto) 0.96 H (0.11-0.59) K/uL Eos # (Auto) 0.04 (0-0.5) K/uL Baso # (Auto) 0.02 (0-0.2) K/uL Immature Gran # (Auto) 0.11 H (0.00-0.02) K/uL Sodium (136-145) mmol/L Potassium (3.5-5.1) mmol/L Chloride (98-107) mmol/L Carbon Dioxide (21-32) mmol/L Anion Gap (3-11) BUN (6-23) mg/dl Creatinine (0.6-1.4) mg/dl Est Cr Clr Drug Dosing ml/min Est GFR ( Amer) ml/min Est GFR (Non-Af Amer) ml/min BUN/Creatinine Ratio (10-20) Glucose (70-99(Fasting)) mg/dl POC Glucose (70-99) mg/dl Lactate (0.4-2.0) mmol/L Calcium (8.5-10.1) mg/dl Magnesium (1.7-2.4) mg/dl Total Bilirubin (0.2-1.0) mg/dl AST (13-39) U/L ALT (7-52) U/L Alkaline Phosphatase (34-104) U/L Ammonia (18-72) umol/L Total Creatine Kinase 87 (30-223) U/L Troponin I High Sens (0-20) pg/ml Total Protein (6.0-8.3) gm/dl Albumin (3.4-5.0) gm/dl Globulin (2.5-4.0) gm/dl Albumin/Globulin Ratio (0.9-2) TSH 1.527 (0.300-4.500) uIu/ml Urine Color Urine Appearance (Clear) Urine pH (4.5-7.5) Ur Specific Severn (1.000-1.030) Urine Protein (Negative) Urine Glucose (UA) (Negative) Urine Ketones (Negative) Urine Blood (Negative) Urine Nitrite (Negative) Urine Bilirubin (Negative) Urine Urobilinogen (Negative) Ur Leukocyte Esterase (Negative) Urine WBC (Auto) (0-5) /hpf Urine RBC (Auto) (0-4) /hpf U Hyaline Cast (Auto) (0-5) /lpf U Epithel Cells (Auto) (0-5) /lpf Urine Bacteria (Auto) (Negative) Urine Yeast (None Prsent) SARS-CoV-2 (PCR) (Negative) Influenza Type A (PCR) (Neg) Influenza Type B (PCR) (Neg) RSV (RT-PCR) (Neg) 10/26/21 10/26/21 10/26/21 Range/Units 03:42 05:18 05:18 WBC (4.8-10.8) K/uL RBC (4.7-6.1) M/uL Hgb (14.0-18.0) g/dL Hct (42-52) % MCV (80-100) fL MCH (25-34) pg MCHC (32-36) g/dL RDW Std Deviation (36.4-46.3) fL RDW Coeff of Faiza (11.5-14.5) % Plt Count (130-400) K/uL MPV (7.4-10.4) fL Immature Gran % (Auto) % Neut % (Auto) % Lymph % (Auto) % Elk % (Auto) % Eos % (Auto) % Baso % (Auto) % Neut # (Auto) (1.4-6.5) K/uL Lymph # (Auto) (1.2-3.4) K/uL Elk # (Auto) (0.11-0.59) K/uL Eos # (Auto) (0-0.5) K/uL Baso # (Auto) (0-0.2) K/uL Immature Gran # (Auto) (0.00-0.02) K/uL Sodium (136-145) mmol/L Potassium (3.5-5.1) mmol/L Chloride (98-107) mmol/L Carbon Dioxide (21-32) mmol/L Anion Gap (3-11) BUN (6-23) mg/dl Creatinine (0.6-1.4) mg/dl Est Cr Clr Drug Dosing ml/min Est GFR ( Amer) ml/min Est GFR (Non-Af Amer) ml/min BUN/Creatinine Ratio (10-20) Glucose (70-99(Fasting)) mg/dl POC Glucose (70-99) mg/dl Lactate 2.1 H* 1.7 (0.4-2.0) mmol/L Calcium (8.5-10.1) mg/dl Magnesium (1.7-2.4) mg/dl Total Bilirubin (0.2-1.0) mg/dl AST (13-39) U/L ALT (7-52) U/L Alkaline Phosphatase (34-104) U/L Ammonia 37.0 (18-72) umol/L Total Creatine Kinase (30-223) U/L Troponin I High Sens (0-20) pg/ml Total Protein (6.0-8.3) gm/dl Albumin (3.4-5.0) gm/dl Globulin (2.5-4.0) gm/dl Albumin/Globulin Ratio (0.9-2) TSH (0.300-4.500) uIu/ml Urine Color Urine Appearance (Clear) Urine pH (4.5-7.5) Ur Specific Severn (1.000-1.030) Urine Protein (Negative) Urine Glucose (UA) (Negative) Urine Ketones (Negative) Urine Blood (Negative) Urine Nitrite (Negative) Urine Bilirubin (Negative) Urine Urobilinogen (Negative) Ur Leukocyte Esterase (Negative) Urine WBC (Auto) (0-5) /hpf Urine RBC (Auto) (0-4) /hpf U Hyaline Cast (Auto) (0-5) /lpf U Epithel Cells (Auto) (0-5) /lpf Urine Bacteria (Auto) (Negative) Urine Yeast (None Prsent) SARS-CoV-2 (PCR) (Negative) Influenza Type A (PCR) (Neg) Influenza Type B (PCR) (Neg) RSV (RT-PCR) (Neg) 10/26/21 Range/Units 05:49 WBC (4.8-10.8) K/uL RBC (4.7-6.1) M/uL Hgb (14.0-18.0) g/dL Hct (42-52) % MCV (80-100) fL MCH (25-34) pg MCHC (32-36) g/dL RDW Std Deviation (36.4-46.3) fL RDW Coeff of Faiza (11.5-14.5) % Plt Count (130-400) K/uL MPV (7.4-10.4) fL Immature Gran % (Auto) % Neut % (Auto) % Lymph % (Auto) % Elk % (Auto) % Eos % (Auto) % Baso % (Auto) % Neut # (Auto) (1.4-6.5) K/uL Lymph # (Auto) (1.2-3.4) K/uL Elk # (Auto) (0.11-0.59) K/uL Eos # (Auto) (0-0.5) K/uL Baso # (Auto) (0-0.2) K/uL Immature Gran # (Auto) (0.00-0.02) K/uL Sodium (136-145) mmol/L Potassium (3.5-5.1) mmol/L Chloride (98-107) mmol/L Carbon Dioxide (21-32) mmol/L Anion Gap (3-11) BUN (6-23) mg/dl Creatinine (0.6-1.4) mg/dl Est Cr Clr Drug Dosing ml/min Est GFR ( Amer) ml/min Est GFR (Non-Af Amer) ml/min BUN/Creatinine Ratio (10-20) Glucose (70-99(Fasting)) mg/dl POC Glucose 332 H* (70-99) mg/dl Lactate (0.4-2.0) mmol/L Calcium (8.5-10.1) mg/dl Magnesium (1.7-2.4) mg/dl Total Bilirubin (0.2-1.0) mg/dl AST (13-39) U/L ALT (7-52) U/L Alkaline Phosphatase (34-104) U/L Ammonia (18-72) umol/L Total Creatine Kinase (30-223) U/L Troponin I High Sens (0-20) pg/ml Total Protein (6.0-8.3) gm/dl Albumin (3.4-5.0) gm/dl Globulin (2.5-4.0) gm/dl Albumin/Globulin Ratio (0.9-2) TSH (0.300-4.500) uIu/ml Urine Color Urine Appearance (Clear) Urine pH (4.5-7.5) Ur Specific Severn (1.000-1.030) Urine Protein (Negative) Urine Glucose (UA) (Negative) Urine Ketones (Negative) Urine Blood (Negative) Urine Nitrite (Negative) Urine Bilirubin (Negative) Urine Urobilinogen (Negative) Ur Leukocyte Esterase (Negative) Urine WBC (Auto) (0-5) /hpf Urine RBC (Auto) (0-4) /hpf U Hyaline Cast (Auto) (0-5) /lpf U Epithel Cells (Auto) (0-5) /lpf Urine Bacteria (Auto) (Negative) Urine Yeast (None Prsent) SARS-CoV-2 (PCR) (Negative) Influenza Type A (PCR) (Neg) Influenza Type B (PCR) (Neg) RSV (RT-PCR) (Neg) Administered Medications Discontinued Medications Acetaminophen (Acetaminophen 500 Mg Tab) 1,000 mg PO NOW STA Stop: 10/26/21 03:21 Last Admin: 10/26/21 03:35 Dose: 1,000 mg Documented by: [id number] Sodium Chloride (Nss) 500 mls @ 999 mls/hr IV .Q31M VAISHALI Stop: 10/26/21 04:00 Last Infusion: 10/26/21 04:06 Dose: 0 mls/hr Documented by: [id number] Admin: 10/26/21 03:35 Dose: 999 mls/hr Documented by: [id number] Piperacillin Sod/Tazobactam Sod (Zosyn) 4.5 gm in 120 mls @ 240 mls/hr IV ONE STA; Protocol Stop: 10/26/21 05:12 Last Infusion: 10/26/21 05:18 Dose: 0 mls/hr Documented by: [id number] Admin: 10/26/21 04:48 Dose: 240 mls/hr Documented by: [id number] Insulin Glargine (Insulin Glargine Solostar 100 Units/Ml 3 Ml Pen) 40 units SC NOW STA Stop: 10/26/21 04:42 Last Admin: 10/26/21 05:23 Dose: 40 units Documented by: [id number] Cosigned by: [id number] Imaging Data Radiologist's Impression: KUB HISTORY: Acute generalized abdominal pain with constipation. 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 constipation COMPARISON: KUB 07/12/2021 FINDINGS: There are numerous distended air-filled loops of both large and small bowel. Colonic stool volume appears be mild and within normal limits. No unexpected opaque foreign bodies are identified. No renal calculi. No ureteral calculi. No pneumoperitoneum or pneumatosis. No fracture. IMPRESSION: Numerous distended air-filled loops of large and small bowel are concerning for a distal obstruction. An ileus could appear similarly. Close follow-up is recommended. ACT 112: Negative or not required by law. The above report was generated using voice recognition software. It may contain grammatical, syntax or spelling errors. Electronically signed by: Brandon Aguilar M.D. 10/20/2021 6:52 AM Discharge Plan Visit Data Chief Complaint: Illness Stated Complaint: Fall, Weakness ED Provider: Mel Gutierrez Patient Disposition: Admitted As Inpatient Discharge Instructions Interventions: ED Discharge Assessment Last Done: 10/26/21 05:58 Forms Stand Alone Forms: My sendwithus Prescriptions Prescriptions: No Action multivitamin Tablet 1 tab PO DAILY RF: 0 metformin 500 mg Tablet Extended Release 24 Hr 500 mg PO BID RF: 0 Trulicity 3 mg/0.5 mL Pen Injector 3 mg SUBCUT WK RF: 0 cod liver oil Capsule 1 cap PO DAILY RF: 0 hydrocodone-acetaminophen 10-325 mg tablet 1 tab PO TID PRN (Reason: Pain) RF: 0 aspirin 81 mg Tablet,Delayed Release (Dr/Ec) 81 mg PO DAILY RF: 0 spironolactone 25 mg tablet 12.5 mg PO DAILY RF: 0 tamsulosin 0.4 mg capsule 0.8 mg PO DAILY@1800 RF: 0 potassium chloride 10 mEq tablet,ER particles/crystals 10 meq PO DAILY RF: 0 insulin glargine [Lantus Solostar U-100 Insulin] 100 unit/mL (3 mL) insulin pen 35 units subcut BID RF: 0 omega 0-viv-zop-fish oil 1,000 mg (120 mg-180 mg) Capsule 1 cap PO DAILY RF: 0 ulfqc-[id number]-vmo-ielqem [krill oil] 142-26-27-50 mg Capsule 1 cap PO DAILY RF: 0 guaifenesin 600 mg Tablet Extended Release 12hr 600 mg PO BID PRN (Reason: Congestion) RF: 0 ascorbic acid (vitamin C) 500 mg Capsule 500 mg PO DAILY RF: 0 pantoprazole 40 mg tablet,delayed release (DR/EC) 40 mg PO DAILY RF: 0 allopurinol 300 mg tablet 300 mg PO QAM RF: 0 pravastatin 20 mg tablet 20 mg PO HS RF: 0 gabapentin 100 mg capsule 100 mg PO BID RF: 0 carbidopa-levodopa 25-100 mg tablet 0.5 tab PO BID RF: 0 torsemide 20 mg tablet 20 mg PO DAILY RF: 0 Jardiance 10 mg tablet 10 mg PO DAILY RF: 0 Referrals Referrals: Latha Gómez DO [Primary Care Provider] -
[2021-10-26] MEDS ORDERED: CARBOHYDRATES FOR HYPOGLYCEMIA PO PRN (06:22)
[2021-10-26] MEDS ORDERED: PROMETHAZINE HCL 12.5 MG in SODIUM CHLORIDE 0.9% 50 ML IV PRN (06:22)
[2021-10-26] MEDS ORDERED: GLUCOSE 40% GEL 15 GM TUBE PO PRN (06:22)
[2021-10-26] MEDS ORDERED: DEXTROSE 50% 50 ML SYRINGE IV PRN (06:22)
[2021-10-26] MEDS ORDERED: GLUCOSE 10 TABS/TUBE PO PRN (06:22)
[2021-10-26] MEDS ORDERED: GLUCAGON FOR INJ 1 MG VIAL SQ PRN (06:22)
[2021-10-26] MEDS ORDERED: ACETAMINOPHEN 325 MG TAB PO PRN (06:22)
--- NOTE | 2021-10-26 06:32 | CT Scan Report ---
CT head/brain wo con CLINICAL HISTORY: 81 years-old Male with ams, fall. Acutely altered mental status with head injury s tatus post fall TECHNIQUE: Multiple axial CT images of the head were obtained without contrast. A dose lowering tech nique was utilized adhering to the principles of ALARA. CT DOSE: 1267.28 mGy.cm COMPARISON: Head CT 07/05/2020 FINDINGS: No acute intracranial hemorrhage, midline shift, intracranial mass, hydrocephalus, territorial ischem ia or abnormal extra-axial collection. Age-related involutional changes. White matter hypodensities s uggestive of chronic microvascular ischemic disease. Cerebral vascular calcifications. Unchanged prom inent extra-axial space adjacent to the left cerebral hemisphere. The calvarium is intact. Trace right mastoid effusion. Minimal mucosal thickening of the maxillary s inuses. Prior bilateral lens repair. IMPRESSION: No acute intracranial abnormality or calvarial fracture. ACT 112: Negative or not required by law. The above report was generated using voice recognition software. It may contain grammatical, syntax o r spelling errors. Electronically signed by: Brandon Aguilar M.D. 10/26/2021 6:30 AM
--- NOTE | 2021-10-26 06:53 | CT Scan Report ---
ABDOMEN AND PELVIS CT WITHOUT CONTRAST CT DOSE: 2214.00 mGy.cm HISTORY: Acute back pain with lethargy and confusion. Acute weakness back pain TECHNIQUE: Multiaxial CT images of the abdomen and pelvis were performed without contrast. A dose lo wering technique was utilized adhering to the principles of ALARA. COMPARISON STUDY: 02/05/2016 FINDINGS: Limited exam secondary to upper extremity positioning and lack of contrast. Gynecomastia. C ardiomegaly with mitral annular and coronary artery calcifications. Study is also degraded by respira tory motion artifact. There is mild subsegmental bibasilar atelectasis with bronchial wall thickening and mild mucous plugging. There is no pneumatosis or pneumoperitoneum. The unenhanced spleen is mildly enlarged, 13.6 cm. Moderately atrophic pancreas. The adrenal glands a nd gallbladder appear unremarkable. Ill-defined area of decreased attenuation within the inferior rig ht hepatic lobe measures 5 cm with an additional ill-defined area measuring 2.5 cm within the right h epatic lobe on image 24. There is mild marginal nodularity of the liver. The liver is mildly enlarged . Mild nonspecific bilateral perinephric stranding. Cortical thinning of the kidneys without urolith or hydronephrosis. Brachytherapy seeds of the enlarged prostate. Mild urinary bladder distention with w all thickening and perivesicular stranding. Atherosclerosis of the aorta. There is no lymphadenopathy . No bowel obstruction or bowel wall thickening. Moderate fecal retention. Mild colonic diverticulosi s without acute diverticulitis. No ascites or mesenteric inflammation. Normal appendix. Unremarkable soft tissues. Degenerative changes of the spine, pelvis and right hip. Left hip total joint arthropla sty. Compression deformities at L2 and L5 are technically age-indeterminate however appear chronic. IMPRESSION: 1. No renal or ureteral calculi or hydronephrosis. 2. No bowel obstruction or bowel wall thickening. 3. Mild colonic diverticulosis. 4. Prostamegaly with findings suggestive of chronic bladder outlet obstruction. Correlate with urinal ysis. 5. Mild cirrhotic changes of the liver with two areas of decreased attenuation within the right hepat ic lobe which may be artifactual. Hepatic lesions are considered less likely however correlation with a nonemergent follow-up CT of the abdomen utilizing liver protocol with and without IV contrast is r ecommended. 6. Additional findings as above. ACT 112: Negative or not required by law. The above report was generated using voice recognition software. It may contain grammatical, syntax o r spelling errors. Electronically signed by: Brandon Aguilar M.D. 10/26/2021 6:50 AM
--- NOTE | 2021-10-26 08:17 | XRay Report ---
XR chest 1V portable HISTORY: 81 years-old Male weakness acute weakness COMPARISON: CT abdomen and pelvis of same day, Chest radiograph 07/10/2020 TECHNIQUE: Portable AP view of the chest FINDINGS: The cardiac silhouette is moderately enlarged. No pneumothorax, large pleural effusion or overt pulmo nary edema. Subsegmental bibasilar densities. Degenerative changes of the shoulders and spine. IMPRESSION: 1. Cardiomegaly without pulmonary edema. 2. Subsegmental bibasilar opacities suggest atelectasis. ACT 112: Negative or not required by law. The above report was generated using voice recognition software. It may contain grammatical, syntax o r spelling errors. Electronically signed by: Brandon Aguilar M.D. 10/26/2021 8:15 AM
[2021-10-26] MEDS: CEFEPIME 2,000 MG in SYRINGE 0 ML IV SCH (09:48)
[2021-10-26] MEDS: allopurinoL 300 MG TAB PO SCH (09:49)
[2021-10-26] MEDS: HEPARIN SOD 5,000 UNIT/0.5 ML VIAL SQ SCH ×3 (09:49→21:00)
[2021-10-26] MEDS: MULTIVITAMIN TAB PO SCH (09:49)
[2021-10-26] MEDS: CARBIDOPA/LEVODOPA 25/100MG TAB PO SCH ×2 (09:49→20:01)
[2021-10-26] MEDS: PANTOprazole 40 MG TAB PO SCH (09:49)
[2021-10-26] MEDS: ASPIRIN 81 MG ECTAB PO SCH (09:49)
[2021-10-26] MEDS: INSULIN ASPART PER UNIT SC SCH ×5 (10:00→23:59)
--- NOTE | 2021-10-26 15:37 | Communication Note ---
Date of Service: October 26, 2021 Pt was seen and examined for follow up of weakness and ambulatory dysfunction Lying in bed with no acute feeling so sleepy and weak Pt said that he did not sleep last night Denies any chest pain, palpitation, dizziness, fever and SOB Exam General Appearance:Obese, sleepy Head: normocephalic, Atraumatic Eyes: normal inspection, EOMI Neck: supple, Trachea midline Respiratory/Chest: diminished BS, CTA Cardiovascular: S1, S2, No murmur Abdomen/GI:Soft, Non tender, Bowel sounds present Extremities/Musculoskelatal:normal inspection, chronic venous stasis, bilateral lower extremity edema, +RUE tremor--chronic per patient Neurologic/Psych:AAOX3, grossly no focal neurological deficits Skin: normal color, warm A/P Generalized Weakness Ambulatory dysfunction Present on admission with weakness and inability to stand or walk Might related to possible UTI Head CT:There is no hemorrhage, mass effect, or evidence of acute territorial ischemia by CT criteria. CXR: 1. Cardiomegaly without pulmonary edema. Subsegmental bibasilar opacities suggest atelectasis. Continue PT/OT Fall Precautions Will possible needs inpatient Rehab SIRS Met criteria with elevated WBC and tachycardia WBC 20K on admission, trending down to 15K Lactic acid 2.1 on admission, Lactic acid 1.7 today Continue IVF with Cefepime Blood cx and urine cx pending UTI UA positive for nitrite, Leukocyte and bacteria Urine cx pending Continue IV Cefepime Chronic diastolic heart failure Last EF 55 to 60%, TTE 2018 Spironolactone and Torsemide on hold Monitor Volume status Acute PARMJIT on CKD III Baseline Cr ~ Mid 1s Creatinine 1.7 today Continue gentle IVF Continue to hold Spironolactone and Torsemide on hold Avoid Nephrotoxic agents as able Nonocclusive CAD Continue aspirin, statin Denies any chest pain Hyperlipidemia on statin DM II HbA1C: 9.9 on 08/11 BS Elevated Pharmacy consulted for glycemic management Continue insulin therapy while hospitalized Monitor blood glucose levels H/O Prostate cancer S/P Radiation, Lupron DVT Px: Heparin SQ Code Status Full code
[2021-10-26] MEDS ORDERED: PHARMACY GLYCEMIC MGMT CONSULT PRN (15:45)
[2021-10-26] MEDS: TAMSULOSIN HCL 0.4 MG CAP PO SCH (17:44)
[2021-10-26] MEDS ORDERED: MICONAZOLE NITRATE POWDER 43 GM EXT PRN (18:56)
[2021-10-26] MEDS: PRAVASTATIN SOD 20 MG TAB PO SCH (20:01)
[2021-10-26] MEDS ORDERED: INSULIN GLARGINE SOLOSTAR 100 UNITS/ML 3 ML PEN SC SCH ×2 (21:00→21:30)
[2021-10-27] MEDS: INSULIN ASPART PER UNIT SC SCH ×5 (03:44→20:38)
[2021-10-27] MEDS: CEFEPIME 2,000 MG in SYRINGE 0 ML IV SCH (06:31)
[2021-10-27] MEDS: HEPARIN SOD 5,000 UNIT/0.5 ML VIAL SQ SCH ×3 (06:31→20:41)
[2021-10-27 07:29] LABS: Basophils # (auto) 0.02 K/uL (0-0.2); Basophils % (auto) 0.1 %; Eosinophils # (auto) 0.18 K/uL (0-0.5); Eosinophils % (auto) 1.3 %; Hematocrit (blood only) 38.8 % (42-52); Hemoglobin 12.9 g/dL (14.0-18.0); Immature Granulocytes % (auto) 0.7 %; Lymphocytes # (auto) 3.12 K/uL (1.2-3.4); Lymphocytes % (auto) 22.9 %; Mean Corpuscular Hemoglobin 30.7 pg (25-34); Mean Corpuscular Hgb Conc 33.2 g/dL (32-36); Mean Corpuscular Volume 92.4 fL (80-100); Mean Platelet Volume 10.9 fL (7.4-10.4); Monocytes # (auto) 1.15 K/uL (0.11-0.59); Monocytes % (auto) 8.4 %; Neutrophils # (auto) 9.07 K/uL (1.4-6.5); Neutrophils % (auto) 66.6 %; Platelet Count 240 K/uL (130-400); RDW Coefficient of Variation 13.5 % (11.5-14.5); RDW Standard Deviation 45.2 fL (36.4-46.3); White Blood Count 13.64 K/uL (4.8-10.8)
[2021-10-27 07:46] LABS: BUN Creatinine Ratio 18.9 (10-20); Calcium 9.4 mg/dl (8.5-10.1); Creatinine Clr Calc Pharmacy 56.5 ml/min; Est GFR (African American) 57.4 ml/min; Est GFR (Non-African American) 49.5 ml/min; Potassium 4.3 mmol/L (3.5-5.1)
[2021-10-27] MEDS: oxyCODONE HCL IR 5 MG TAB (IMMEDIATE RELEASE) PO PRN ×2 (08:02→18:09)
[2021-10-27] MEDS: MULTIVITAMIN TAB PO SCH (08:04)
[2021-10-27] MEDS: CARBIDOPA/LEVODOPA 25/100MG TAB PO SCH ×2 (08:04→20:40)
[2021-10-27] MEDS: allopurinoL 300 MG TAB PO SCH (08:04)
[2021-10-27] MEDS: PANTOprazole 40 MG TAB PO SCH (08:04)
[2021-10-27] MEDS: ASPIRIN 81 MG ECTAB PO SCH (08:04)
[2021-10-27] MEDS: INSULIN GLARGINE SOLOSTAR 100 UNITS/ML 3 ML PEN SC SCH ×2 (08:09→20:38)
--- NOTE | 2021-10-27 12:23 | XRay Report ---
XR tibia fibula RT 2V CLINICAL HISTORY: right tibia pain Comparison: None available at the time of this dictation. TECHNIQUE: 2 radiographic views of the right leg were obtained. FINDINGS: There is no evidence of an acute fracture. The alignment is anatomic. Osteophyte formation and joint space narrowing is seen most prominent in the ankle joint. Total knee arthroplasty is noted. No soft tissue abnormality is seen. IMPRESSION: Degenerative changes without evidence of acute fracture. ACT 112: Negative or not required by law. Electronically signed by: Fritz Weber M.D. 10/27/2021 12:22 PM
--- NOTE | 2021-10-27 12:26 | XRay Report ---
XR knee RT 1 or 2V routine CLINICAL HISTORY: right knee pain. COMPARISON STUDY: 07/10/2020 TECHNIQUE: 2 right knee views FINDINGS: Bones: There is no evidence for an acute fracture or dislocation. There is no lytic or blastic lesion . 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 There is no change in the position or alignment of the prosthetic components. The bones are in anatomic alignment. Soft tissues: There is no focal soft tissue abnormality. There is no radiopaque foreign body. IMPRESSION: 1. No acute osseous pathology. 2. Stable total knee replacement. ACT 112: Negative or not required by law. Electronically signed by: Danny Sauceda M.D. 10/27/2021 12:24 PM
--- NOTE | 2021-10-27 17:31 | Hospitalist Progress Note ---
Date of Service October 27, 2021 Assessment & Plan (1) Weakness generalized: Plan: Ambulatory dysfunction Present on admission with weakness and inability to stand or walk Might be related to infection Head CT:There is no hemorrhage, mass effect, or evidence of acute territorial ischemia by CT criteria. CXR:1. Cardiomegaly without pulmonary edema. Subsegmental bibasilar opacities suggest atelectasis. Continue PT/OT Fall Precautions Will need inpatient Rehab Encephalopathy CT head negative Resolved SIRS Met criteria with elevated WBC and tachycardia WBC 20K on admission, trending down to 15K Lactic acid 2.1 on admission, Lactic acid 1.7 today Continue IVF with Cefepime Blood cx and urine cx no growth UTI UA positive for nitrite, Leukocyte and bacteria Urine cx grew multiple organisms Will D/C Cefepime after tomorrow dose Chronic diastolic heart failure Last EF 55 to 60%, TTE 2018 Spironolactone and Torsemide on hold Monitor Volume status Acute PARMJIT on CKD III Baseline Cr ~ Mid 1s Creatinine 1.3 today Received gentle IVF Continue to hold Spironolactone and Torsemide on hold Avoid Nephrotoxic agents as able Nonocclusive CAD Continue aspirin, statin Denies any chest pain Hyperlipidemia on statin DM II HbA1C: 9.9 on 08/11 BS Elevated Pharmacy consulted for glycemic management Continue insulin therapy while hospitalized Monitor blood glucose levels H/O Prostate cancer S/P Radiation, Lupron DVT Px: Heparin SQ Code Status Full code Disposition Recommended inpatient rehab Admission and Anticipated Discharge Date Admission Date: October 26, 2021 Subjective Pt was seen and examined for follow up of weakness Pt said that he feels so weak He said that he is having right knee pain/right mid tibia pain He is more awake today Denies any chest pain, palpitation, dizziness Review of Systems Review of Systems: All systems reviewed & are unremarkable except as noted in Subjective Physical Exam Physical Exam: General- No acute distress Head- atraumatic Eyes- PERRL, EOMI, ENT- oropharynx clear Neck- supple, no JVD Lungs- Diminished Heart- regular rhythm; no murmur Abdomen- normal bowel sounds, soft, nontender Extremities- no calf tenderness, Right knee pain, chronic venous stasis, bilateral lower extremity edema, +RUE tremor--chronic per patient Neuro- alert, oriented x 3; PERRL, EOMI; no facial palsy; no dysarthria Skin- warm & dry Results & Data Results & Data ([facility]) Vital Signs (Past 12 Hours) Vital Signs Temp Pulse Pulse Resp BP Pulse Ox 10/27/21 16:16 37.0 C 78 18 138/73 93 10/27/21 15:57 91 H 10/27/21 11:56 36.8 C 81 18 153/90 H 93 10/27/21 08:23 36.7 C 83 18 163/69 H 94 10/27/21 07:20 77
[2021-10-27] MEDS: TAMSULOSIN HCL 0.4 MG CAP PO SCH (17:57)
--- NOTE | 2021-10-27 19:44 | Electrocardiogram Report ---
Test Reason : Blood Pressure : / mmHG Vent. Rate : 100 BPM Atrial Rate : 100 BPM P-R Int : 184 ms QRS Dur : 084 ms QT Int : 332 ms P-R-T Axes : -08 021 067 degrees QTc Int : 428 ms Normal sinus rhythm Normal ECG When compared with ECG of 05-JUL-2020 21:33, No significant change was found Confirmed by Weston Portillo ([id number]) on 10/27/2021 7:44:42 PM Referred By: REFERRED SELF Confirmed By:Weston Portillo
[2021-10-27] MEDS: PRAVASTATIN SOD 20 MG TAB PO SCH (20:40)
[2021-10-28] MEDS: oxyCODONE HCL IR 5 MG TAB (IMMEDIATE RELEASE) PO PRN ×2 (04:57→14:41)
[2021-10-28] MEDS: HEPARIN SOD 5,000 UNIT/0.5 ML VIAL SQ SCH ×3 (04:58→21:22)
[2021-10-28] MEDS: CARBIDOPA/LEVODOPA 25/100MG TAB PO SCH ×2 (07:53→20:07)
[2021-10-28] MEDS: MULTIVITAMIN TAB PO SCH (07:53)
[2021-10-28] MEDS: CEFEPIME 2,000 MG in SYRINGE 0 ML IV SCH (07:53)
[2021-10-28] MEDS: ASPIRIN 81 MG ECTAB PO SCH (07:54)
[2021-10-28] MEDS: allopurinoL 300 MG TAB PO SCH (07:54)
[2021-10-28] MEDS: PANTOprazole 40 MG TAB PO SCH (07:54)
[2021-10-28] MEDS: INSULIN ASPART PER UNIT SC SCH ×4 (08:00→20:06)
[2021-10-28] MEDS: INSULIN GLARGINE SOLOSTAR 100 UNITS/ML 3 ML PEN SC SCH ×2 (08:01→20:06)
--- NOTE | 2021-10-28 08:33 | Pharmacy Report ---
Pharmacy Glycemic Short Note 2 - Date of Service October 28, 2021 - Glycemic Short BSG Results (Last 24 hours): 10/27/21 10/27/21 10/27/21 11:24 16:31 20:26 POC Glucose 189 H 223 H 227 H 10/28/21 07:44 POC Glucose 114 H OUTPATIENT ANTIDIABETIC REGIMEN: * Lantus 35 units bid, Jardiance 10 mg daily, Trulicity weekly, metformin 500 mg bid * A1c 9.9% 08/05/21 ASSESSMENT: * Patient admitted with encephalopathy/UTI, type 2 diabetic managed on insulin at home. A1c 9.9% - per DM educator notes, patient follows with [facility] clinic for diabetes management * Patient received total of 86 units of insulin yesterday, of which 60 units were basal * Fasting BSG 114 mg/dL - will continue with basal 50-60 units daily. Will give 30 units this AM, then scale for HS 20-30 units based on BSG * BSGs trending up throughout the day yesterday, may need to tighten CR later today PLAN FOR INPATIENT GLYCEMIC CONTROL: * Hold outpatient oral diabetes medications * Basal insulin * Lantus 30 units Qam * Lantus 20-30 units Qpm based upon BSG value (<180 - 20 units, 180 or greater - 30 units) * Bolus insulin * NovoLog per scale ACHS or Q6hrs while NPO * Goal Range: Low 120 mg/dL - High 150 mg/dL * Correction Factor: 20 mg/dL/unit * Nutritional / Prandial insulin per carb ratio of 1 unit per 7 grams CHO consumed
[2021-10-28 13:30] LABS: Hematocrit (blood only) 37.1 % (42-52); Hemoglobin 12.2 g/dL (14.0-18.0); Mean Corpuscular Hemoglobin 30.6 pg (25-34); Mean Corpuscular Hgb Conc 32.9 g/dL (32-36); Mean Platelet Volume 10.8 fL (7.4-10.4); Platelet Count 236 K/uL (130-400); RDW Coefficient of Variation 13.4 % (11.5-14.5); RDW Standard Deviation 45.9 fL (36.4-46.3); Red Blood Count 3.99 M/uL (4.7-6.1)
[2021-10-28] MEDS: LIDOCAINE 5% 1 PATCH TD SCH (16:45)
[2021-10-28] MEDS: TAMSULOSIN HCL 0.4 MG CAP PO SCH (18:08)
[2021-10-28] MEDS: PRAVASTATIN SOD 20 MG TAB PO SCH (20:08)
[2021-10-28] MEDS ORDERED: ZOLPIDEM TARTRATE 5 MG TAB PO STA (22:35)
--- NOTE | 2021-10-28 23:12 | Hospitalist Progress Note ---
Date of Service October 28, 2021 Assessment & Plan (1) Weakness generalized: Plan: Ambulatory dysfunction Present on admission with weakness and inability to stand or walk Might be related to infection Head CT:There is no hemorrhage, mass effect, or evidence of acute territorial ischemia by CT criteria. CXR:1. Cardiomegaly without pulmonary edema. Subsegmental bibasilar opacities suggest atelectasis. Continue PT/OT Fall Precautions Will need inpatient Rehab Encephalopathy CT head negative Resolved SIRS Met criteria with elevated WBC and tachycardia WBC 20K on admission WBC was 13K, then increased to 14.7 today Lactic acid 2.1 on admission, Lactic acid 1.7 Procalcitonin is normal Currently on IVF with Cefepime Blood cx no growth Urine cx grew 3 types of organisms ( contamination) UTI UA positive for nitrite, Leukocyte and bacteria Urine cx grew multiple organisms Currently on IVF with cefepime Urine cx grew 3 types of organisms ( contamination) Will complete 5 days course of antibiotic Left Knee pain Tibia showed Degenerative changes without evidence of acute fracture. Knee Xray showed no acute osseous pathology. Stable total knee replacement. Continue pain control PT/OT eval Chronic diastolic heart failure Last EF 55 to 60%, TTE 2018 Spironolactone and Torsemide on hold Monitor Volume status Acute PARMJIT on CKD III Baseline Cr ~ Mid 1s Creatinine 1.3 Received gentle IVF Continue to hold Spironolactone and Torsemide on hold Avoid Nephrotoxic agents as able Nonocclusive CAD Continue aspirin, statin Denies any chest pain Hyperlipidemia on statin DM II HbA1C: 9.9 on 08/11 BS Elevated Pharmacy consulted for glycemic management Continue insulin therapy while hospitalized Monitor blood glucose levels H/O Prostate cancer S/P Radiation, Lupron DVT Px: Heparin SQ Code Status Full code Disposition Recommended inpatient rehab Admission and Anticipated Discharge Date Admission Date: October 26, 2021 Subjective Pt was seen and examined for follow up of weakness and left knee pain Lying in bed with no acute distress He said that he is having a ot of pain in his right knee worsening when standing Denies any chest pain, palpitation, dizziness Review of Systems Review of Systems: All systems reviewed & are unremarkable except as noted in Subjective Physical Exam Physical Exam: General- No acute distress Head- atraumatic Eyes- PERRL, EOMI, ENT- oropharynx clear Neck- supple, no JVD Lungs- Diminished Heart- regular rhythm; no murmur Abdomen- normal bowel sounds, soft, nontender Extremities- no calf tenderness, Right knee pain, chronic venous stasis, bilateral lower extremity edema Neuro- alert, oriented x 3; PERRL, EOMI; no facial palsy; no dysarthria Skin- warm & dry Results & Data Results & Data ([facility]) Vital Signs (Past 12 Hours) Vital Signs Temp Pulse Pulse Resp BP BP Pulse Ox 10/28/21 22:43 36.7 C 75 20 130/76 92 10/28/21 19:23 36.7 C 75 18 125/67 94 10/28/21 15:23 80 10/28/21 14:30 36.7 C 85 17 154/70 H 94 10/28/21 11:19 36.8 C 84 17 164/72 H 92
[2021-10-29] MEDS: CEFEPIME 2,000 MG in SYRINGE 0 ML IV SCH (06:02)
[2021-10-29] MEDS: HEPARIN SOD 5,000 UNIT/0.5 ML VIAL SQ SCH ×2 (06:02→15:07)
[2021-10-29 07:50] LABS: Hematocrit (blood only) 38.3 % (42-52); Hemoglobin 12.6 g/dL (14.0-18.0); Mean Corpuscular Hemoglobin 30.4 pg (25-34); Mean Corpuscular Hgb Conc 32.9 g/dL (32-36); Mean Corpuscular Volume 92.5 fL (80-100); Mean Platelet Volume 11.1 fL (7.4-10.4); Platelet Count 244 K/uL (130-400); RDW Coefficient of Variation 13.4 % (11.5-14.5); RDW Standard Deviation 44.9 fL (36.4-46.3); Red Blood Count 4.14 M/uL (4.7-6.1); White Blood Count 10.97 K/uL (4.8-10.8)
[2021-10-29 08:18] LABS: BUN Creatinine Ratio 17.2 (10-20); Calcium 9.4 mg/dl (8.5-10.1); Creatinine Clr Calc Pharmacy 57.8 ml/min; Est GFR (African American) 59.6 ml/min; Est GFR (Non-African American) 51.4 ml/min
[2021-10-29] MEDS: LIDOCAINE 5% 1 PATCH TD SCH (08:50)
[2021-10-29] MEDS: INSULIN ASPART PER UNIT SC SCH ×4 (08:50→21:16)
[2021-10-29] MEDS: INSULIN GLARGINE SOLOSTAR 100 UNITS/ML 3 ML PEN SC SCH ×2 (08:51→21:27)
[2021-10-29] MEDS: allopurinoL 300 MG TAB PO SCH (08:52)
[2021-10-29] MEDS: ASPIRIN 81 MG ECTAB PO SCH (08:52)
[2021-10-29] MEDS: MULTIVITAMIN TAB PO SCH (08:53)
[2021-10-29] MEDS: CARBIDOPA/LEVODOPA 25/100MG TAB PO SCH ×2 (08:53→21:16)
[2021-10-29] MEDS: PANTOprazole 40 MG TAB PO SCH (08:53)
--- NOTE | 2021-10-29 10:10 | Pharmacy Report ---
Pharmacy Glycemic Short Note 2 - Date of Service October 29, 2021 - Glycemic Short BSG Results (Last 24 hours): 10/28/21 10/28/21 10/28/21 11:41 16:41 19:58 Glucose POC Glucose 164 H 199 H 247 H 10/29/21 10/29/21 06:31 07:44 Glucose 127 H POC Glucose 130 H OUTPATIENT ANTIDIABETIC REGIMEN: * Lantus 35 units bid, Jardiance 10 mg daily, Trulicity weekly, metformin 500 mg bid * A1c 9.9% 08/05/21 ASSESSMENT: 10/29/21: * Edilda received 101 units of SQ insulin yesterday with adequate BSG control * 60 units basal + 41 units bolus * BSGs: 114, 164, 199, 247 mg/dL * Fasting BSG of 130 is near goal. Continue current Lantus order. * Post prandial BSGs are trending upward throughout the day. Will tighten carb coverage. 10/28/21: * Patient admitted with encephalopathy/UTI, type 2 diabetic managed on insulin at home. A1c 9.9% - per DM educator notes, patient follows with [facility] clinic for diabetes management * Patient received total of 86 units of insulin yesterday, of which 60 units were basal * Fasting BSG 114 mg/dL - will continue with basal 50-60 units daily. Will give 30 units this AM, then scale for HS 20-30 units based on BSG * BSGs trending up throughout the day yesterday, may need to tighten CR later today PLAN FOR INPATIENT GLYCEMIC CONTROL: * Hold outpatient oral diabetes medications * Basal insulin * Lantus 30 units Qam * Lantus 20-30 units Qpm based upon BSG value (<180 - 20 units, 180 or greater -30 units) * Bolus insulin * NovoLog per scale ACHS or Q6hrs while NPO * Goal Range: Low 120 mg/dL - High 150 mg/dL * Correction Factor: 20 mg/dL/unit * Nutritional / Prandial insulin per carb ratio of 1 unit per 6 grams CHO consumed
--- NOTE | 2021-10-29 16:22 | Hospitalist Progress Note ---
Date of Service October 29, 2021 Assessment & Plan (1) Weakness generalized: Plan: Ambulatory dysfunction Present on admission with weakness and inability to stand or walk Might be related to urinary infection or general deconditioning. Head CT:There is no hemorrhage, mass effect, or evidence of acute territorial ischemia by CT criteria. CXR:1. Cardiomegaly without pulmonary edema. Subsegmental bibasilar opacities suggest atelectasis. Continue PT/OT Fall Precautions Pt awaiting inpatient rehabilitation Although he is weak and deconditioned, he appears to have an acute injury to his right knee which is a replacement. There is significant lateral knee pain and swelling. Will start Ibuprofen and Ice scheduled and ask orthopedics to look at him. He also is chronically on hydrocodone 10mg TID which was switched to oxycodone 5. He may be experiencing some kind of relative withdrawal from the higher dose of hydrocodone, contributing to knee pain and a general feeling of discomfort. Encephalopathy reported, patient states that when he fell and was on the floor at home he had a phone but had forgotten how to dial 911. CT head negative Resolved SIRS Met criteria with elevated WBC and tachycardia WBC 20K on admission and has now decreased to 10K No fever and he doesn't appear to have an overt infection of the knee at this time Complete short course abx for possible UTI which may have contributed to the fall Blood cx no growth Urine cx grew 3 types of organisms ( contamination) UTI UA positive for nitrite, Leukocyte and bacteria Urine cx grew multiple organisms Currently on IVF with cefepime Urine cx grew 3 types of organisms ( contamination) Will complete 5 days course of antibiotic (last dose scheduled for tomorrow morning) removing urinary catheter at this time. Right Knee pain Tibia showed Degenerative changes without evidence of acute fracture. Knee Xray showed no acute osseous pathology. Stable total knee replacement. Plan as above including Ibuprofen, change to hydrocodone, add ICE TID and as tolerated to reduce swelling and pain Ortho consult. Chronic diastolic heart failure Last EF 55 to 60%, TTE 2018 Spironolactone and Torsemide on hold Monitor Volume status Acute PARMJIT on CKD III Baseline Cr ~ Mid 1s Creatinine 1.7 at highest level, now resolved back to baseline after IVF. Restart spironolactone and torsemide per home regimen. Nonocclusive CAD-chronic, stable. Continue home medications. DM II-chronic, uncontrolled at baseline HbA1C: 9.9 on 08/11 BS Elevated Pharmacy consulted for glycemic management Continue insulin therapy while hospitalized Monitor blood glucose levels which are now normalized. H/O Prostate cancer S/P Radiation, Lupron DVT Px: Heparin SQ Full Code Dispo-to inpatient rehab. Will ask ortho to evaluate in setting of persistent R knee pain. Can transfer to rehab once pain more controlled. Alina Patrick DO [employer] [facility] Hospitalist Admission and Anticipated Discharge Date Admission Date: October 26, 2021 Subjective 81 yo M presents with severe right knee pain after a fall at home. He has a h/o R knee replacement 20+years ago. Today he reports that although hydrocodone is the only thing helping his pain, he still has significant pain He is able to walk and right knee feels improved when he is up and moving around On exam he has pain with flexing the knee and there is warmth and swelling, demetria on the lateral right knee. There is TTP in the lateral right knee area. Review of Systems Review of Systems: All systems were reviewed and negative except as indicated in subjective above. Physical Exam Physical Exam: CONSTITUTIONAL: WNWD, vitals as above, generally well- appearing but in mild to moderate distress with any movement of his right knee. EYES: normal conjunctivae, no scleral icterus, ENT: external ear and nose normal, oropharynx clear, mucous membranes are dry. NECK: trachea midline RESPIRATORY: clear to auscultation bilaterally, no crackles, rales or wheezes, normal respiratory effort CARDIOVASCULAR: regular rate and rhythm, S1 and 2 heard without murmurs, gallops or rubs, no JVD, no peripheral edema CHEST: inspection of chest was normal GASTROINTESTINAL: soft, nontender, ND, protberant, no guarding MUSCULOSKELETAL: strength 5/5 throughout, head is normocephalic and atraumatic, R knee: restricted flexion/extension because of knee. He is able to fully extend, but not able to fully flex. There is warmth to lateral R knee and min swelling with exquisite TTP at this site. In a flexed position there is no anterior or posterior tenderness to palpation of the menisci, also there appears to be stability of anterior and posterior cruciate ligaments, however, actual testing of this could not be performed because of pain. SKIN: warm and dry NEUROLOGIC: CN 2-12 grossly intact, no sensory deficit, normal cognition, normal speech, no tremor, no gross focal deficits. PSYCHIATRIC: alert cooperative and oriented to person, place and time. Results & Data Results & Data ([facility]) Vital Signs (Past 12 Hours) Vital Signs Temp Pulse Pulse Resp BP Pulse Ox 10/29/21 15:00 36.7 C 84 20 157/70 H 94 10/29/21 10:47 36.8 C 86 18 132/84 94 10/29/21 07:28 36.9 C 78 18 170/83 H 91 10/29/21 07:09 80 Laboratory Results Short CBC 10/29/21 Range/Units 06:31 WBC 10.97 H (4.8-10.8) K/uL Hgb 12.6 L (14.0-18.0) g/dL Hct 38.3 L (42-52) % Plt Count 244 (130-400) K/uL BMP 10/29/21 06:31 Sodium 133 L Potassium 4.0 Chloride 101 Carbon Dioxide 26 BUN 22 Creatinine 1.28 Glucose 127 H Calcium 9.4 Medications Administered Current Inpatient Medications Acetaminophen (Acetaminophen 325 Mg Tab) 325 mg PO Q6H PRN PRN Reason: Mild Pain Stop: 11/25/21 06:21 Last Admin: 10/26/21 10:00 Dose: 325 mg Documented by: Hydrocodone Bitart/Acetaminophen (Hydrocodone/Acetaminophen 10/325 Tab) 1 tab PO Q8H PRN PRN Reason: Severe Pain Stop: 11/12/21 16:22 Allopurinol (Allopurinol 300 Mg Tab) 300 mg PO QAM VAISHALI Stop: 11/25/21 08:59 Last Admin: 10/29/21 08:52 Dose: 300 mg Documented by: Aspirin (Aspirin 81 Mg Ectab) 81 mg PO DAILY VAISHALI Stop: 11/25/21 08:59 Last Admin: 10/29/21 08:52 Dose: 81 mg Documented by: Carbidopa/Levodopa (Carbidopa/Levodopa 25/100mg Tab) 0.5 tab PO BID VAISHALI Stop: 11/25/21 08:59 Last Admin: 10/29/21 08:53 Dose: 0.5 tab Documented by: Dextrose (Dextrose 50% 50 Ml Syringe) 25 - 50 ml IV UD PRN; Protocol PRN Reason: Hypoglycemia Protocol Stop: 11/25/21 06:21 Glucagon (Glucagon For Inj 1 Mg Vial) 1 mg SQ UD PRN; Protocol PRN Reason: Hypoglycemia Protocol Stop: 11/25/21 06:21 Glucose (Glucose 10 Tabs/Tube) 4 - 8 tabs PO UD PRN; Protocol PRN Reason: Hypoglycemia Protocol Stop: 11/25/21 06:21 Glucose (Glucose 40% Gel 15 Gm Tube) 15 - 30 gm PO UD PRN; Protocol PRN Reason: Hypoglycemia Protocol Stop: 11/25/21 06:21 Heparin Sodium (Porcine) (Heparin Sod 5,000 Unit/0.5 Ml Vial) 5,000 units SQ Q8 [facility] Stop: 11/25/21 06:44 Last Admin: 10/29/21 15:07 Dose: Not Given Documented by: Cefepime HCl 2,000 mg/ Syringe 20 mls @ 5 mls/min IV Q24H [facility]; Protocol Stop: 10/30/21 07:03 Last Admin: 10/29/21 06:02 Dose: 5 mls/min Documented by: Promethazine HCl 12.5 mg/ (Sodium Chloride) 50.5 mls @ 202 mls/hr IV Q6H PRN PRN Reason: Nausea And Vomiting Stop: 11/25/21 06:21 Last Infusion: 10/27/21 04:10 Dose: Infused Documented by: Ibuprofen (Ibuprofen 600 Mg Tab) 600 mg PO Q8H [facility] Stop: 11/28/21 16:29 Insulin Aspart (Insulin Aspart Per Unit) 0 units SC [facility] Stop: 11/25/21 06:21 Last Admin: 10/29/21 12:53 Dose: 9 units Documented by: Insulin Glargine (Insulin Glargine Solostar 100 Units/Ml 3 Ml Pen) 30 units SC [facility] Stop: 11/26/21 08:59 Last Admin: 10/29/21 08:51 Dose: 30 units Documented by: Insulin Glargine (Insulin Glargine Solostar 100 Units/Ml 3 Ml Pen) 0 units SC [facility]; Protocol Stop: 11/26/21 20:59 Last Admin: 10/28/21 20:06 Dose: 30 units Documented by: Lidocaine (Lidocaine 5% 1 Patch) 1 patch TD [facility] Stop: 11/27/21 15:14 Last Admin: 10/29/21 08:50 Dose: 1 patch Documented by: Miconazole Nitrate (Miconazole Nitrate Powder 43 Gm) 1 appln EXT PRN PRN PRN Reason: Affected Skin Folds Stop: 11/25/21 18:55 Miscellaneous (Carbohydrates For Hypoglycemia ) 15 - 30 gm PO UD PRN PRN Reason: Hypoglycemia Protocol Stop: 11/25/21 06:21 Miscellaneous (Remove Lidoderm Patch) 1 ea N/A DAILY@2100 [facility] Stop: 11/27/21 23:29 Last Admin: 10/28/21 21:22 Dose: 1 ea Documented by: Miscellaneous Information (Pharmacy Glycemic Mgmt Consult) 1 ea N/A UD PRN PRN Reason: Consult Stop: 11/25/21 15:44 Multivitamins (Multivitamin Tab) 1 tab PO QAM [facility] Stop: 11/25/21 08:59 Last Admin: 10/29/21 08:53 Dose: 1 tab Documented by: Pantoprazole Sodium (Pantoprazole 40 Mg Tab) 40 mg PO DAILY [facility] Stop: 11/25/21 08:59 Last Admin: 10/29/21 08:53 Dose: 40 mg Documented by: Pravastatin Sodium (Pravastatin Sod 20 Mg Tab) 20 mg PO [facility] Stop: 11/25/21 20:59 Last Admin: 10/28/21 20:08 Dose: 20 mg Documented by: Tamsulosin HCl (Tamsulosin Hcl 0.4 Mg Cap) 0.8 mg PO DAILY@1800 [facility] Stop: 11/25/21 17:59 Last Admin: 10/28/21 18:08 Dose: 0.8 mg Documented by:
[2021-10-29] MEDS ORDERED: HYDROcodone/ACETAMINOPHEN 10/325 TAB PO PRN (16:23)
[2021-10-29] MEDS ORDERED: TORSEMIDE 20 MG TAB PO PRN (17:16)
[2021-10-29] MEDS: IBUPROFEN 600 MG TAB PO SCH ×2 (17:34→23:59)
[2021-10-29] MEDS: TAMSULOSIN HCL 0.4 MG CAP PO SCH (17:37)
[2021-10-29] MEDS ORDERED: diphenhydrAMINE Capsule 25 MG CAP PO ONE (21:07)
[2021-10-29] MEDS ORDERED: PHENAZOPYRIDINE HCL 100 MG TAB PO PRN (21:07)
[2021-10-29] MEDS: GABAPENTIN 100 MG CAP PO SCH (21:09)
[2021-10-29] MEDS: PRAVASTATIN SOD 20 MG TAB PO SCH (21:14)
[2021-10-30] MEDS: CEFEPIME 2,000 MG in SYRINGE 0 ML IV SCH (06:18)
[2021-10-30] MEDS ORDERED: TORSEMIDE 20 MG TAB PO SCH (09:00)
[2021-10-30] MEDS ORDERED: POTASSIUM CHLORIDE 10 MEQ TABCR PO SCH (09:00)
[2021-10-30] MEDS ORDERED: SPIRONOLACTONE 12.5 MG TAB PO SCH (09:00)
[2021-10-30] MEDS ORDERED: INSULIN GLARGINE SOLOSTAR 100 UNITS/ML 3 ML PEN SC SCH (09:00)
[2021-10-30] MEDS: CARBIDOPA/LEVODOPA 25/100MG TAB PO SCH (09:09)
[2021-10-30] MEDS: IBUPROFEN 600 MG TAB PO SCH ×2 (09:09→16:32)
[2021-10-30] MEDS: GABAPENTIN 100 MG CAP PO SCH (09:09)
[2021-10-30] MEDS: MULTIVITAMIN TAB PO SCH (09:10)
[2021-10-30] MEDS: ASPIRIN 81 MG ECTAB PO SCH (09:10)
[2021-10-30] MEDS: allopurinoL 300 MG TAB PO SCH (09:10)
[2021-10-30] MEDS: PANTOprazole 40 MG TAB PO SCH (09:10)
[2021-10-30] MEDS: LIDOCAINE 5% 1 PATCH TD SCH (09:11)
[2021-10-30] MEDS: INSULIN ASPART PER UNIT SC SCH ×2 (09:15→13:05)
--- NOTE | 2021-10-30 10:32 | Orthopedic Consultation ---
Date of Consultation October 30, 2021 Assessment & Plan (1) Right knee pain: I discussed with the patient his x-rays and his exam. There is not appear to be an acute process at this time. Recommend continuing topical lidocaine patches and as needed oral pain medications. He may weight-bear as tolerated on his right lower extremity. He may benefit from a hinged right knee brace if the pain is associated with his lateral collateral ligament. He does not have any instability on exam. He may follow-up with Dr. Tabor's clinic in an outpatient setting. He may need to have further testing if he has persistent lateral knee pain. Thank you for the consultation. Orthopedics will sign off at this time. History of Present Illness Reason for Consultation: Right knee pain Attending Physician: Alina Patrick DO History of Present Illness This is a patient who had his right knee replaced over 20 years ago. The knee had done very well for him until the past year or 2. Last year, he was admitted at [facility] and had a right knee effusion. Aspirations were performed that noted a gouty flare. After the treatment, he has been doing well. However, he states that over the past 6 months he has developed lateral knee pain. He denies any injury to the right knee. He has some difficulties with ambulation secondary to the knee pain. The lidocaine patches that he uses at home and that is been on his knee here at the hospital have helped his pain. Allergies Allergy/AdvReac Type Severity Reaction Status Date / Time No Known Allergies Verified 10/26/21 03:07 Home Medications Medication Instructions Recorded Confirmed Type ascorbic acid (vitamin C) 500 mg 500 mg PO DAILY 07/31/18 10/26/21 History capsule aspirin 81 mg tablet,delayed 81 mg PO DAILY 07/31/18 10/26/21 History release cod liver oil 1 cap PO DAILY 07/31/18 10/26/21 History guaifenesin 600 mg tablet, 600 mg PO BID PRN 07/31/18 10/26/21 History extended release 12 hr hydrocodone 10 mg-acetaminophen 1 tab PO TID PRN 07/31/18 10/26/21 History 325 mg tablet insulin glargine 100 unit/mL (3 35 units SUBCUT BID 07/31/18 10/26/21 History mL) subcutaneous pen (Lantus Solostar U-100 Insulin) krill 1 cap PO DAILY 07/31/18 10/26/21 History wwi-ou-0-tld-toe-hghttkgxbpfcc 300 mg-90 mg-24 mg-50 mg capsule (krill oil) omega 3-dkc-kfp-fish oil 1,000 mg 1 cap PO DAILY 07/31/18 10/26/21 History (120 mg-180 mg) capsule potassium chloride 10 mEq 10 meq PO DAILY 07/31/18 10/26/21 History tablet,extended release(part/cryst) spironolactone 25 mg tablet 12.5 mg PO DAILY 07/31/18 10/26/21 History tamsulosin 0.4 mg capsule 0.8 mg PO DAILY@1800 07/31/18 10/26/21 History multivitamin 1 tab PO DAILY 07/05/20 10/26/21 History dulaglutide 3 mg/0.5 mL 3 mg SUBCUT WK 07/07/20 10/26/21 History subcutaneous pen injector (Trulicity) metformin 500 mg tablet,extended 500 mg PO BID 07/07/20 10/26/21 History release 24 hr allopurinol 300 mg tablet 300 mg PO QAM 10/26/21 10/26/21 History carbidopa 25 mg-levodopa 100 mg 0.5 tab PO BID 10/26/21 10/26/21 History tablet empagliflozin 10 mg tablet 10 mg PO DAILY 10/26/21 10/26/21 History (Jardiance) gabapentin 100 mg capsule 100 mg PO BID 10/26/21 10/26/21 History pantoprazole 40 mg tablet,delayed 40 mg PO DAILY 10/26/21 10/26/21 History release pravastatin 20 mg tablet 20 mg PO HS 10/26/21 10/26/21 History torsemide 20 mg tablet 20 mg PO DAILY 10/26/21 10/26/21 History Patient History Medical History Chronic back pain Chronic diastolic heart failure Diaphragmatic hernia Diverticulitis GERD (gastroesophageal reflux disease) Hyperlipidemia Hypertension Narcotic dependence Prostate cancer "Prostate, adenocarcinoma, cristina 3 + 3, PSA 6.66, cT1c, group I TREATMENT: Prostate seed implant - Cesium 131 - 06/30/2011 - monotherapy alone, Lupron for 6 months prior to implantation." Type 2 diabetes mellitus Venous insufficiency Surgical History History of hip replacement History of knee replacement Status post hernia repair Family History Mother Stroke Social History Smoking Status: Former smoker Second Hand Exposure: No; Hx Alcohol Use: Yes Alcohol type: beer Alcohol Intake Frequency Comment: history of daily use, recently quit Hx Substance Use: No Preferred Language: Omani Communication Ability: Effective Customer Engagement Representative Required: No Beliefs That Will Affect Care: None marital status: / Current Living Situation: Alone current occupational status: retired Feels Safe at Home: Yes Assistive Devices: Walker Physical Exam Constitutional: well developed and well nourished; no acute distress Neck: trachea midline Musculoskeletal: Knee: + surgical incision (Healed anterior right knee in cision), + limited ROM of knee (Flexion contracture right knee of approximately 7 degrees.) and + joint line tenderness (Right knee: Tender along the lateral collateral ligament); no deformity, no effusion, no skin erythema, no ecchymosis, no crepitation with knee ROM, no valgus laxity and no varus laxity (Right knee: Pain laterally with varus stress. No laxity) Skin: no rashes, warm and dry Trauma: + abrasion (Right knee: Over patella); no evidence of skin trauma Neurologic: normal touch/pain/proprioception Psychiatric: A+Ox3, euthymic affect Speech: normal rate/rhythm/volume of speech Results & Data ([facility]) Vital Signs (Past 12 Hours) Vital Signs Temp Pulse Resp BP Pulse Ox 10/30/21 08:21 36.5 C 72 16 168/78 H 95 10/29/21 22:35 37.2 C 72 18 162/77 H 95 Diagnostic Findings 2 views of the right knee were reviewed. There appears to be stable, uncemented total knee arthroplasty implants. No evidence of loosening. No significant changes from films done approximately 1 year ago. No acute fractures.
--- NOTE | 2021-10-30 11:27 | Pharmacy Report ---
Pharmacy Glycemic Short Note 2 - Date of Service October 30, 2021 - Glycemic Short BSG Results (Last 24 hours): 10/29/21 10/29/21 10/29/21 11:38 16:41 20:33 POC Glucose 152 H 196 H 207 H 10/30/21 08:04 POC Glucose 174 H OUTPATIENT ANTIDIABETIC REGIMEN: * Lantus 35 units bid, Jardiance 10 mg daily, Trulicity weekly, metformin 500 mg bid * A1c 9.9% 08/05/21 ASSESSMENT: 10/30/21 * BSGs yesterday were 161-514-419-207 mg/dL. Fasting BSG is 174 mg/dL. * Increase Lantus to 35 units BID since fasting trending up. * BSGs trend upwards throughout the day so tighten CR. Continue to tighten if BSGs > 180 mg/dL. 10/29/21: * Edward received 101 units of SQ insulin yesterday with adequate BSG control * 60 units basal + 41 units bolus * BSGs: 114, 164, 199, 247 mg/dL * Fasting BSG of 130 is near goal. Continue current Lantus order. * Post prandial BSGs are trending upward throughout the day. Will tighten carb coverage. 10/28/21: * Patient admitted with encephalopathy/UTI, type 2 diabetic managed on insulin at home. A1c 9.9% - per DM educator notes, patient follows with [facility] for diabetes management * Patient received total of 86 units of insulin yesterday, of which 60 units were basal * Fasting BSG 114 mg/dL - will continue with basal 50-60 units daily. Will give 30 units this AM, then scale for HS 20-30 units based on BSG * BSGs trending up throughout the day yesterday, may need to tighten CR later today PLAN FOR INPATIENT GLYCEMIC CONTROL: * Hold outpatient oral diabetes medications * Basal insulin * Lantus 35 units BID * Bolus insulin * NovoLog per scale ACHS or Q6hrs while NPO * Goal Range: Low 120 mg/dL - High 150 mg/dL * Correction Factor: 20 mg/dL/unit * Nutritional / Prandial insulin per carb ratio of 1 unit per 5 grams CHO consumed
[2021-10-30 12:04] LABS: Hemoglobin 12.6 g/dL (14.0-18.0); Mean Corpuscular Hemoglobin 30.7 pg (25-34); Mean Corpuscular Hgb Conc 33.2 g/dL (32-36); Mean Corpuscular Volume 92.7 fL (80-100); Mean Platelet Volume 10.6 fL (7.4-10.4); Platelet Count 241 K/uL (130-400); RDW Coefficient of Variation 13.4 % (11.5-14.5); RDW Standard Deviation 45.5 fL (36.4-46.3); White Blood Count 10.41 K/uL (4.8-10.8)
[2021-10-30 12:26] LABS: BUN Creatinine Ratio 19.1 (10-20); Calcium 9.1 mg/dl (8.5-10.1); Creatinine Clr Calc Pharmacy 64.3 ml/min; Est GFR (African American) 67.8 ml/min; Est GFR (Non-African American) 58.5 ml/min; Potassium 4.1 mmol/L (3.5-5.1)
--- NOTE | 2021-10-30 13:32 | Discharge Summary ---
Date of Service October 30, 2021 Admission HPI Per Admitting Provider History obtained from patient, family, and records. Limited history from patient secondary to disorientation. Medical history significant for chronic diastolic heart failure (EF 55 to 60%, TTE 2018), history nonocclusive CAD as per records, hypertension, hyperlipidemia, DM2 insulin requiring, CRI (? baseline creatinine 1.7), chronic hyponatremia, chronic anemia (baseline hemoglobin up to 13), chronic pain, prostate cancer status post radiation/Lupron Rx, Parkinson's disease, past tobacco abuse. Last confinement June 2020 for ambulatory dysfunction and monoarticular arthritis. Patient discharged to rehab before going home. On follow-up visit at PCPs office 3 months ago, patient noted to be noncompliant with home PT. Intermittent falls at home. Patient has been residing with 2 good friends at his home. Patient noted to have resting upper extremity tremors during visit. Sinemet started for possible Parkinson's disease. 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 EYES: normal conjunctivae, no scleral icterus, ENT: external ear and nose normal, oropharynx clear, mucous membranes are dry. NECK: trachea midline RESPIRATORY: clear to auscultation bilaterally, no crackles, rales or wheezes, normal respiratory effort CARDIOVASCULAR: regular rate and rhythm, S1 and 2 heard without murmurs, gallops or rubs, no JVD, no peripheral edema CHEST: inspection of chest was normal GASTROINTESTINAL: soft, nontender, ND, protberant, no guarding MUSCULOSKELETAL: strength 5/5 throughout, head is normocephalic and atraumatic, R knee: restricted flexion/extension because of knee. He is able to fully e xtend, but not able to fully flex. There is warmth to lateral R knee and min swelling with exquisite TTP at this site. In a flexed position there is no anterior or posterior tenderness to palpation of the menisci, also there appears to be stability of anterior and posterior cruciate ligaments, however, actual testing of this could not be performed because of pain. SKIN: warm and dry NEUROLOGIC: CN 2-12 grossly intact, no sensory deficit, normal cognition, normal speech, no tremor, no gross focal deficits. PSYCHIATRIC: alert cooperative and oriented to person, place and time. Discharge Data Allergies Allergy/AdvReac Type Severity Reaction Status Date / Time No Known Allergies Verified 10/26/21 03:07 Consultations 10/26/21 04:29 ED Decision to Admit Stat 10/29/21 16:43 Consult Orthopedic Surgery Routine Ordered Studies 10/26/21 05:05 CT head/brain wo con Urgent 10/26/21 05:18 CT abd pelvis wo con Urgent Hospital Course (1) Weakness generalized: Ambulatory dysfunction Present on admission with weakness and inability to stand or walk Might be related to urinary infection or general deconditioning. Head CT:There is no hemorrhage, mass effect, or evidence of acute territorial ischemia by CT criteria. CXR:1. Cardiomegaly without pulmonary edema. Subsegmental bibasilar opacities suggest atelectasis. Continue PT/OT Fall Precautions Pt awaiting inpatient rehabilitation Although he is weak and deconditioned, he appears to have an acute injury to his right knee which is a replacement. There is significant lateral knee pain and swelling. Will start Ibuprofen and Ice scheduled and ask orthopedics to look at him. He also is chronically on hydrocodone 10mg TID which was switched to oxycodone 5. He may be experiencing some kind of relative withdrawal from the higher dose of hydrocodone, contributing to knee pain and a general feeling of discomfort. Encephalopathy reported, patient states that when he fell and was on the floor at home he had a phone but had forgotten how to dial 911. CT head negative Resolved SIRS Met criteria with elevated WBC and tachycardia WBC 20K on admission and has now decreased to 10K No fever and he doesn't appear to have an overt infection of the knee at this time Complete short course abx for possible UTI which may have contributed to the fall Blood cx no growth Urine cx grew 3 types of organisms ( contamination) UTI UA positive for nitrite, Leukocyte and bacteria Urine cx grew multiple organisms Currently on IVF with cefepime Urine cx grew 3 types of organisms ( contamination) Will complete 5 days course of antibiotic (last dose scheduled for tomorrow morning) removing urinary catheter at this time. Right Knee pain Tibia showed Degenerative changes without evidence of acute fracture. Knee Xray showed no acute osseous pathology. Stable total knee replacement. Plan as above including Ibuprofen, change to hydrocodone, add ICE TID and as tolerated to reduce swelling and pain Ortho consult. Chronic diastolic heart failure Last EF 55 to 60%, TTE 2018 Spironolactone and Torsemide on hold Monitor Volume status Acute PARMJIT on CKD III Baseline Cr ~ Mid 1s Creatinine 1.7 at highest level, now resolved back to baseline after IVF. Restart spironolactone and torsemide per home regimen. Nonocclusive CAD-chronic, stable. Continue home medications. DM II-chronic, uncontrolled at baseline HbA1C: 9.9 on 08/11 BS Elevated Pharmacy consulted for glycemic management Continue insulin therapy while hospitalized Monitor blood glucose levels which are now normalized. H/O Prostate cancer S/P Radiation, Lupron DVT Px: Heparin SQ Full Code Dispo-to inpatient rehab. Will ask ortho to evaluate in setting of persistent R knee pain. Can transfer to rehab once pain more controlled. [facility] Discharge Plan Discharge Items Patient Disposition: Transfer Inpatient Rehab Fac Reason For Visit: SEPSIS Discharge Diagnosis: Generalized weakness Ambulatory dysfunction Encephalopathy-resolved SIRS on admission, possible UTI-treated with course of antibiotics empirically Traumatic right knee pain Acute on chronic kidney injury with CKD Stage III at baseline. Condition on Discharge: Good Activity: Resume your previous activity Non-emergency contact: Primary Care Provider Call non-emergency contact if: you have any medication questions, your symptoms worsen, your pain is not controlled, your pain is worsening, your pain is unusual for you, your pain is concerning for you and you have a fever Follow-up/Referrals: Latha Gómez DO [Primary Care Provider] - Diet: Carb Consistent or DM2 and Heart Healthy Addtl Attending Provider Instructions: Please take all medications as instructed on discharge list below. Please use Ibuprofen and ICE to your right knee for help with pain control. It is recommended that you follow-up with Dr. Micha Tabor at [facility] in a couple of weeks for re-evaluation of your right knee pain. It is recommended you follow-up with your primary care provider (PCP) one week after you are discharged from rehab to ensure your PCP is aware of any medication changes and perform a re-evaluation of your knee. It was a pleasure taking care of you! Please call if you have any questions or problems. You can reach a [facility] hospitalist on duty at [facility] 24 hours a day by calling [phone]. Take care of yourself. Alina Patrick, DO [facility] Hospitalist Pending Studies at Discharge: No Stand-Alone Forms: My [facility] Skilled Items Patient informed of condition?: Yes DNR: No Discharge Level of Care: Acute rehab Communicable Disease: No Discharge Prognosis: Stable Lines: None Urinary Catheter: No Medications and DC Order Prescriptions: New ibuprofen 600 mg Tablet 600 mg PO Q8H PRN (Reason: knee pain) Qty: 30 RF: 0 Continued multivitamin Tablet 1 tab PO DAILY RF: 0 metformin 500 mg Tablet Extended Release 24 Hr 500 mg PO BID RF: 0 Trulicity 3 mg/0.5 mL Pen Injector 3 mg SUBCUT WK RF: 0 cod liver oil Capsule 1 cap PO DAILY RF: 0 hydrocodone-acetaminophen 10-325 mg tablet 1 tab PO TID PRN (Reason: Pain) RF: 0 aspirin 81 mg Tablet,Delayed Release (Dr/Ec) 81 mg PO DAILY RF: 0 spironolactone 25 mg tablet 12.5 mg PO DAILY RF: 0 tamsulosin 0.4 mg capsule 0.8 mg PO DAILY@1800 RF: 0 potassium chloride 10 mEq tablet,ER particles/crystals 10 meq PO DAILY RF: 0 insulin glargine [Lantus Solostar U-100 Insulin] 100 unit/mL (3 mL) insulin pen 35 units subcut BID RF: 0 omega 9-ajg-dqn-fish oil 1,000 mg (120 mg-180 mg) Capsule 1 cap PO DAILY RF: 0 lghwk-pcmcb-6-puc-xno-frtpul [krill oil] 830-22-77-50 mg Capsule 1 cap PO DAILY RF: 0 guaifenesin 600 mg Tablet Extended Release 12hr 600 mg PO BID PRN (Reason: Congestion) RF: 0 ascorbic acid (vitamin C) 500 mg Capsule 500 mg PO DAILY RF: 0 pantoprazole 40 mg tablet,delayed release (DR/EC) 40 mg PO DAILY RF: 0 allopurinol 300 mg tablet 300 mg PO QAM RF: 0 pravastatin 20 mg tablet 20 mg PO HS RF: 0 gabapentin 100 mg capsule 100 mg PO BID RF: 0 carbidopa-levodopa 25-100 mg tablet 0.5 tab PO BID RF: 0 torsemide 20 mg tablet 20 mg PO DAILY RF: 0 Jardiance 10 mg tablet 10 mg PO DAILY RF: 0 Discharge Orders: Discharge Order (Routine); Ordered 10/30/21 Ordered By: Alina Patrick Admission Data Admit Date/Time: 10/26/21 05:22 Attending Provider: Alina Patrick Admit Provider: Ken Gaitan Primary Care Provider: Latha Gómez Other Providers: [facility] ; Ken Gaitan ; Rafita Tabor
== END 2021-10-30 17:06 | DRG 872 ==
LOC: ED 02:54 → 2N 05:22 → SUATTDRO 05:22 → 2N 05:58 → 3N 10-29 19:44

== ENCOUNTER 2021-11-07 09:09 | Inpatient (IN) ==
[2021-11-07] MEDS ORDERED: ACETAMINOPHEN 1000 MG/100 ML IV IV STA (09:32)
[2021-11-07] MEDS ORDERED: CEFEPIME 2,000 MG/20 ML VIAL IV STA (09:32)
--- NOTE | 2021-11-07 09:40 | Emergency Department Note ---
Impression & Plan Sepsis, Weakness, Fall, Acute UTI, Leukocytosis ED Provider Note NAME: RALPH HAQUE AGE: 81 SEX: M : 1940 ARRIVES VIA: Ambulance INFORMANT: [Patient][ems, nursing] ED PROVIDER(S): [Miguel Peoples MD] CHIEF COMPLAINT: Illness HISTORY OF PRESENT ILLNESS: The patient is an 81-year-old male who apparently had a ground-level fall today. The report indicates that he did not strike his head. He did not lose consciousness. The patient was discharged from [facility] 4 days ago. He was there for strengthening. He has a history of falling. The patient presents tachycardic, hypoxic with a temperature of 39.5. He appears disoriented and confused. The patient was covered in urine and stool as per the nursing staff. The patient can really give no history at this time, when asked questions, he says yes or no but, does not seem to be able to comprehend what was actually asked. Given the circumstances, no further history obtainable. REVIEW OF SYSTEMS: See HPI for pertinent positives and negatives. A total of ten systems were reviewed and were otherwise negative. PMHx/PSHx: See Below SOCIAL HISTORY: See Below. PHYSICAL EXAM: GENERAL: Patient is in moderate distress. Covered in stool. HEENT: No acute trauma, normocephalic atraumatic, mucous membranes dry, no nasal congestion, no scleral icterus. NECK: No stridor, no adenopathy, no meningismus, trachea is midline. LUNGS: A few scattered wheezes heard, breath sounds are diminished bilaterally. No rhonchi. No obvious respiratory distress. HEART: Tachycardic, I cannot hear a murmur at this time, regular rhythm. ABDOMEN: Soft, nontender, bowel sounds positive, no peritonitis. EXTREMITIES: No cyanosis or edema, full range of motion of all the joints without pain or difficulty, no signs for acute trauma. NEUROLOGIC: Awake and alert, confused, does move all extremities. No speech slur appreciated. SKIN: No rash, no jaundice, no diaphoresis. Groin: No scrotal erythema noted. DIFFERENTIAL DIAGNOSIS: Sepsis, UTI, pneumonia, COVID-19, influenza, metabolic abnormality, electrolyte abnormalities, cardiac sources, cellulitis, bacteremia, intracerebral event, toxicologic etiology, neurologic event, as well as other pathologies. EMERGENCY DEPARTMENT COURSE/PROCEDURES: ECG: Indication was sepsis. The ECG shows a sinus tachycardia with a first- degree AV block. The rate is 111. There is no ST elevation. No PVCs. 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 The QTc is 432. Continuous Cardiac Monitoring: An order was placed for continuous cardiac monitoring. The monitor shows a rate of 119 with sinus tachycardia. Critical Care Note: I have personally spent 57 minutes of critical care time in the direct management of this patient. This includes bedside care, interpretation of diagnostic studies, and testing, discussion with consultants, patient, and family members, and other required patient management activities. This 57 minutes is in excess of all separately billable procedures. MEDICAL DECISION MAKING: There is a moderate leukocytosis, this would be consistent with infection. The patient does have a mild anemia with a hemoglobin of 12.9. This anemia is baseline for the patient. There is a normal platelet count. No coagulopathy. There is an elevation to the creatinine consistent with some dehydration/renal insufficiency. Lactic acid level was elevated at over 2, consistent with infection/sepsis. There were some elevated liver enzymes although, this appears baseline looking back at previous testing. Procalcitonin level was elevated consistent with bacterial infection. ECG shows a sinus tachycardia without any obvious acute ischemia. Cardiac enzyme testing x1 is not consistent with acute cardiac injury. Urinalysis shows evidence for infection. Respiratory bio fire panel testing was negative. Chest x-ray did not show pneumonia or CHF. Pelvis film did not show any obvious pelvic or hip fracture. CT of the brain did not show any an acute intracranial bleeding, no mass-effect. CT of the C-spine does not show any fracture. On arrival, the patient was tachycardic, febrile, covered in stool and seemed a bit confused. The patient received 1 L of IV saline, he received IV Tylenol as well as IV cefepime. The patient's made improvement here in the ED, he is more interactive and more appropriate. His heart rate has decreased. His temperature has decreased. The patient is septic from a UTI. This has led the weakness and to his fall. He does require a hospital stay for IV antibiotic therapy and further care. I spoke with the patient at length, I talked to the case aide. The on-call hospitalist was consulted. Past Med/Surg History Medical History Chronic back pain Chronic diastolic heart failure Diaphragmatic hernia Diverticulitis GERD (gastroesophageal reflux disease) Hyperlipidemia Hypertension Narcotic dependence Prostate cancer "Prostate, adenocarcinoma, cristina 3 + 3, PSA 6.66, cT1c, group I TREATMENT: Prostate seed implant - Cesium 131 - 06/30/2011 - monotherapy alone, Lupron for 6 months prior to implantation." Type 2 diabetes mellitus Venous insufficiency Surgical History History of hip replacement History of knee replacement Status post hernia repair Family History Mother Stroke Social History Smoking Status: Former smoker Tobacco Type: Smokeless Tobacco (Dip or Chew) Second Hand Exposure: No; Hx Alcohol Use: Yes Alcohol type: beer Alcohol Intake Frequency Comment: history of daily use, recently quit Hx Substance Use: No Preferred Language: Citizen Of [place] Communication Ability: Effective 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 Marker Required: No Beliefs That Will Affect Care: None marital status: / Current Living Situation: Alone current occupational status: retired Feels Safe at Home: Yes Assistive Devices: Walker Allergies Allergies Allergy/AdvReac Type Severity Reaction Status Date / Time No Known Allergies Verified 10/26/21 03:07 Home Meds Home Medications Medication Instructions Recorded Confirmed ascorbic acid (vitamin C) 500 mg 500 mg PO DAILY 07/31/18 10/26/21 capsule aspirin 81 mg tablet,delayed 81 mg PO DAILY 07/31/18 10/26/21 release cod liver oil 1 cap PO DAILY 07/31/18 10/26/21 guaifenesin 600 mg tablet, 600 mg PO BID PRN 07/31/18 10/26/21 extended release 12 hr hydrocodone 10 mg-acetaminophen 1 tab PO TID PRN 07/31/18 10/26/21 325 mg tablet insulin glargine 100 unit/mL (3 35 units SUBCUT BID 07/31/18 10/26/21 mL) subcutaneous pen (Lantus Solostar U-100 Insulin) krill 1 cap PO DAILY 07/31/18 10/26/21 sfl-cy-8-eak-rjn-mnnrabcbvybwx 300 mg-90 mg-24 mg-50 mg capsule (krill oil) omega 7-xaz-xul-fish oil 1,000 mg 1 cap PO DAILY 07/31/18 10/26/21 (120 mg-180 mg) capsule potassium chloride 10 mEq 10 meq PO DAILY 07/31/18 10/26/21 tablet,extended release(part/cryst) spironolactone 25 mg tablet 12.5 mg PO DAILY 07/31/18 10/26/21 tamsulosin 0.4 mg capsule 0.8 mg PO DAILY@1800 07/31/18 10/26/21 multivitamin 1 tab PO DAILY 07/05/20 10/26/21 dulaglutide 3 mg/0.5 mL 3 mg SUBCUT WK 07/07/20 10/26/21 subcutaneous pen injector (Trulicity) metformin 500 mg tablet,extended 500 mg PO BID 07/07/20 10/26/21 release 24 hr allopurinol 300 mg tablet 300 mg PO QAM 10/26/21 10/26/21 carbidopa 25 mg-levodopa 100 mg 0.5 tab PO BID 10/26/21 10/26/21 tablet empagliflozin 10 mg tablet 10 mg PO DAILY 10/26/21 10/26/21 (Jardiance) gabapentin 100 mg capsule 100 mg PO BID 10/26/21 10/26/21 pantoprazole 40 mg tablet,delayed 40 mg PO DAILY 10/26/21 10/26/21 release pravastatin 20 mg tablet 20 mg PO HS 10/26/21 10/26/21 torsemide 20 mg tablet 20 mg PO DAILY 10/26/21 10/26/21 Previous Rx's Medication Instructions Recorded ibuprofen 600 mg tablet 600 mg PO Q8H PRN #30 tab 10/30/21 Results & Data (ED) Vital Signs Vital Signs - 24 hr 11/07/21 09:01 11/07/21 09:18 11/07/21 09:30 Temperature 39.5 C H Temperature Source Oral Pulse Rate 119 H 112 H 115 H Pulse Rate from SpO2 Sensor 112 H 118 H Respiratory Rate 24 21 27 H Respiratory Effort / Characteristics Non-Labored Respiratory Depth Normal Blood Pressure 162/79 H Blood Pressure Mean 106 Pulse Oximetry 88 L 96 93 Oxygen Delivery Method Room Air Nasal Cannula Nasal Cannula Oxygen Flow Rate 2 2 Sepsis Recent Fever Within 48 Hours Yes Sepsis New/Unexplained Change in Mental Status Yes Sepsis Action Taken by Nursing Physician Notified 11/07/21 09:32 11/07/21 09:45 11/07/21 09:53 Temperature Temperature Source Pulse Rate 114 H 116 H Pulse Rate from SpO2 Sensor 114 H 116 H Respiratory Rate 21 20 Respiratory Effort / Characteristics Non-Labored Spontaneous Respiratory Depth Blood Pressure 144/74 H Blood Pressure Mean 97 Pulse Oximetry 93 94 95 Oxygen Delivery Method Nasal Cannula Nasal Cannula Nasal Cannula Oxygen Flow Rate 2 2 2 Sepsis Recent Fever Within 48 Hours Sepsis New/Unexplained Change in Mental Status Sepsis Action Taken by Nursing 11/07/21 10:02 11/07/21 10:30 11/07/21 10:32 Temperature Temperature Source Pulse Rate 109 H Pulse Rate from SpO2 Sensor 109 H Respiratory Rate 19 Respiratory Effort / Characteristics Non-Labored Spontaneous Non-Labored Spontaneous Respiratory Depth Blood Pressure 136/60 Blood Pressure Mean 85 Pulse Oximetry 95 Oxygen Delivery Method Nasal Cannula Nasal Cannula Nasal Cannula Oxygen Flow Rate 2 2 2 Sepsis Recent Fever Within 48 Hours Sepsis New/Unexplained Change in Mental Status Sepsis Action Taken by Nursing 11/07/21 10:45 11/07/21 11:00 11/07/21 11:01 Temperature 37.6 C H Temperature Source Oral Pulse Rate 104 H Pulse Rate from SpO2 Sensor 104 H Respiratory Rate 19 Respiratory Effort / Characteristics Non-Labored Spontaneous Respiratory Depth Blood Pressure Blood Pressure Mean Pulse Oximetry 94 94 Oxygen Delivery Method Nasal Cannula Nasal Cannula Oxygen Flow Rate 2 2 Sepsis Recent Fever Within 48 Hours Sepsis New/Unexplained Change in Mental Status Sepsis Action Taken by Snf Medications Current Medication List: was personally reviewed by me Laboratory Data Attestation: I reviewed the patient's lab results. Result diagrams: 11/07/21 09:50 11/07/21 09:50 Lab Results 11/07/21 11/07/21 11/07/21 Range/Units 09:35 09:35 09:50 WBC 17.67 H (4.8-10.8) K/uL RBC 4.08 L (4.7-6.1) M/uL Hgb 12.9 L (14.0-18.0) g/dL Hct 38.0 L (42-52) % MCV 93.1 (80-100) fL MCH 31.6 (25-34) pg MCHC 33.9 (32-36) g/dL RDW Std Deviation 45.5 (36.4-46.3) fL RDW Coeff of Faiza 13.3 (11.5-14.5) % Plt Count 240 (130-400) K/uL MPV 10.9 H (7.4-10.4) fL Immature Gran % (Auto) 0.3 % Neut % (Auto) 91.8 % Lymph % (Auto) 3.7 % [place] % (Auto) 4.0 % Eos % (Auto) 0.1 % Baso % (Auto) 0.1 % Neut # (Auto) 16.22 H (1.4-6.5) K/uL Lymph # (Auto) 0.65 L (1.2-3.4) K/uL [place] # (Auto) 0.71 H (0.11-0.59) K/uL Eos # (Auto) 0.01 (0-0.5) K/uL Baso # (Auto) 0.02 (0-0.2) K/uL Immature Gran # (Auto) 0.06 H (0.00-0.02) K/uL PT (9.0-12.0) Seconds INR (0.9-1.1) APTT (21.0-31.0) Seconds PTT Ratio Sodium (136-145) mmol/L Potassium (3.5-5.1) mmol/L Chloride (98-107) mmol/L Carbon Dioxide (21-32) mmol/L Anion Gap (3-11) BUN (6-23) mg/dl Creatinine (0.6-1.4) mg/dl Est Cr Clr Drug Dosing Est GFR ( Amer) ml/min Est GFR (Non-Af Amer) ml/min BUN/Creatinine Ratio (10-20) Glucose (70-99(Fasting)) mg/dl Lactate (0.4-2.0) mmol/L Calcium (8.5-10.1) mg/dl Magnesium (1.7-2.4) mg/dl Total Bilirubin (0.2-1.0) mg/dl AST (13-39) U/L ALT (7-52) U/L Alkaline Phosphatase (34-104) U/L Troponin I High Sens (0-20) pg/ml Total Protein (6.0-8.3) gm/dl Albumin (3.4-5.0) gm/dl Globulin (2.5-4.0) gm/dl Albumin/Globulin Ratio (0.9-2) Procalcitonin (0-0.5) ng/ml Urine Color Yellow Urine Appearance Turbid A (Clear) Urine pH 5.5 (4.5-7.5) Ur Specific [place] 1.020 (1.000-1.030) Urine Protein Trace H (Negative) Urine Glucose (UA) 3+ H (Negative) Urine Ketones Negative (Negative) Urine Blood 3+ H (Negative) Urine Nitrite Positive A (Negative) Urine Bilirubin Negative (Negative) Urine Urobilinogen Negative (Negative) Ur Leukocyte Esterase 2+ H (Negative) Urine WBC (Auto) >30 H (0-5) /hpf Urine RBC (Auto) >30 H (0-4) /hpf U Hyaline Cast (Auto) 1-5 (0-5) /lpf U Epithel Cells (Auto) 10-20 H (0-5) /lpf Urine Bacteria (Auto) 4+ H (Negative) Adenovirus (PCR) Not Detected (NotDetected) B. pertussis DNA (PCR) Not Detected (NotDetected) B.parapertussis DNA PCR Not Detected (NotDetected) C. pneumoniae DNA (PCR) Not Detected (NotDetected) Coronavirus OC43 (PCR) Not Detected (NotDetected) Coronavirus HKU1 (PCR) Not Detected (NotDetected) Coronavirus 229E (PCR) Not Detected (NotDetected) SARS-CoV-2 (PCR) Not Detected (NotDetected) Coronavirus NL63 (PCR) Not Detected (NotDetected) Human Metapneumovir PCR Not Detected (NotDetected) Influenza Type A (PCR) Not Detected (NotDetected) Influenza Type B (PCR) Not Detected (NotDetected) M. pneumoniae (PCR) Not Detected (NotDetected) Parainfluenza 1 (PCR) Not Detected (NotDetected) Parainfluenza 2 (PCR) Not Detected (NotDetected) Parainfluenza 3 (PCR) Not Detected (NotDetected) Parainfluenza 4 (PCR) Not Detected (NotDetected) RSV (PCR) Not Detected (NotDetected) Entero/Rhino (PCR) Not Detected (NotDetected) 11/07/21 11/07/21 11/07/21 Range/Units 09:50 09:50 09:50 WBC (4.8-10.8) K/uL RBC (4.7-6.1) M/uL Hgb (14.0-18.0) g/dL Hct (42-52) % MCV (80-100) fL MCH (25-34) pg MCHC (32-36) g/dL RDW Std Deviation (36.4-46.3) fL RDW Coeff of Faiza (11.5-14.5) % Plt Count (130-400) K/uL MPV (7.4-10.4) fL Immature Gran % (Auto) % Neut % (Auto) % Lymph % (Auto) % [place] % (Auto) % Eos % (Auto) % Baso % (Auto) % Neut # (Auto) (1.4-6.5) K/uL Lymph # (Auto) (1.2-3.4) K/uL [place] # (Auto) (0.11-0.59) K/uL Eos # (Auto) (0-0.5) K/uL Baso # (Auto) (0-0.2) K/uL Immature Gran # (Auto) (0.00-0.02) K/uL PT 11.3 (9.0-12.0) Seconds INR 1.1 (0.9-1.1) APTT 28.8 (21.0-31.0) Seconds PTT Ratio 1.0 Sodium 134 L (136-145) mmol/L Potassium 4.8 (3.5-5.1) mmol/L Chloride 98 (98-107) mmol/L Carbon Dioxide 26 (21-32) mmol/L Anion Gap 10 (3-11) BUN 45 H (6-23) mg/dl Creatinine 1.73 H (0.6-1.4) mg/dl Est Cr Clr Drug Dosing Not Reportable Est GFR ( Amer) 41.4 ml/min Est GFR (Non-Af Amer) 35.7 ml/min BUN/Creatinine Ratio 26.0 H (10-20) Glucose 239 H (70-99(Fasting)) mg/dl Lactate 2.4 H* (0.4-2.0) mmol/L Calcium 9.4 (8.5-10.1) mg/dl Magnesium 1.7 (1.7-2.4) mg/dl Total Bilirubin 1.2 H (0.2-1.0) mg/dl AST 62 H (13-39) U/L ALT 81 H (7-52) U/L Alkaline Phosphatase 203 H (34-104) U/L Troponin I High Sens 10.7 (0-20) pg/ml Total Protein 7.3 (6.0-8.3) gm/dl Albumin 3.8 (3.4-5.0) gm/dl Globulin 3.5 (2.5-4.0) gm/dl Albumin/Globulin Ratio 1.1 (0.9-2) Procalcitonin (0-0.5) ng/ml Urine Color Urine Appearance (Clear) Urine pH (4.5-7.5) Ur Specific [place] (1.000-1.030) Urine Protein (Negative) Urine Glucose (UA) (Negative) Urine Ketones (Negative) Urine Blood (Negative) Urine Nitrite (Negative) Urine Bilirubin (Negative) Urine Urobilinogen (Negative) Ur Leukocyte Esterase (Negative) Urine WBC (Auto) (0-5) /hpf Urine RBC (Auto) (0-4) /hpf U Hyaline Cast (Auto) (0-5) /lpf U Epithel Cells (Auto) (0-5) /lpf Urine Bacteria (Auto) (Negative) Adenovirus (PCR) (NotDetected) B. pertussis DNA (PCR) (NotDetected) B.parapertussis DNA PCR (NotDetected) C. pneumoniae DNA (PCR) (NotDetected) Coronavirus OC43 (PCR) (NotDetected) Coronavirus HKU1 (PCR) (NotDetected) Coronavirus 229E (PCR) (NotDetected) SARS-CoV-2 (PCR) (NotDetected) Coronavirus NL63 (PCR) (NotDetected) Human Metapneumovir PCR (NotDetected) Influenza Type A (PCR) (NotDetected) Influenza Type B (PCR) (NotDetected) M. pneumoniae (PCR) (NotDetected) Parainfluenza 1 (PCR) (NotDetected) Parainfluenza 2 (PCR) (NotDetected) Parainfluenza 3 (PCR) (NotDetected) Parainfluenza 4 (PCR) (NotDetected) RSV (PCR) (NotDetected) Entero/Rhino (PCR) (NotDetected) 11/07/21 Range/Units 09:50 WBC (4.8-10.8) K/uL RBC (4.7-6.1) M/uL Hgb (14.0-18.0) g/dL Hct (42-52) % MCV (80-100) fL MCH (25-34) pg MCHC (32-36) g/dL RDW Std Deviation (36.4-46.3) fL RDW Coeff of Faiza (11.5-14.5) % Plt Count (130-400) K/uL MPV (7.4-10.4) fL Immature Gran % (Auto) % Neut % (Auto) % Lymph % (Auto) % [place] % (Auto) % Eos % (Auto) % Baso % (Auto) % Neut # (Auto) (1.4-6.5) K/uL Lymph # (Auto) (1.2-3.4) K/uL [place] # (Auto) (0.11-0.59) K/uL Eos # (Auto) (0-0.5) K/uL Baso # (Auto) (0-0.2) K/uL Immature Gran # (Auto) (0.00-0.02) K/uL PT (9.0-12.0) Seconds INR (0.9-1.1) APTT (21.0-31.0) Seconds PTT Ratio Sodium (136-145) mmol/L Potassium (3.5-5.1) mmol/L Chloride (98-107) mmol/L Carbon Dioxide (21-32) mmol/L Anion Gap (3-11) BUN (6-23) mg/dl Creatinine (0.6-1.4) mg/dl Est Cr Clr Drug Dosing Est GFR ( Amer) ml/min Est GFR (Non-Af Amer) ml/min BUN/Creatinine Ratio (10-20) Glucose (70-99(Fasting)) mg/dl Lactate (0.4-2.0) mmol/L Calcium (8.5-10.1) mg/dl Magnesium (1.7-2.4) mg/dl Total Bilirubin (0.2-1.0) mg/dl AST (13-39) U/L ALT (7-52) U/L Alkaline Phosphatase (34-104) U/L Troponin I High Sens (0-20) pg/ml Total Protein (6.0-8.3) gm/dl Albumin (3.4-5.0) gm/dl Globulin (2.5-4.0) gm/dl Albumin/Globulin Ratio (0.9-2) Procalcitonin 1.64 H (0-0.5) ng/ml Urine Color Urine Appearance (Clear) Urine pH (4.5-7.5) Ur Specific [place] (1.000-1.030) Urine Protein (Negative) Urine Glucose (UA) (Negative) Urine Ketones (Negative) Urine Blood (Negative) Urine Nitrite (Negative) Urine Bilirubin (Negative) Urine Urobilinogen (Negative) Ur Leukocyte Esterase (Negative) Urine WBC (Auto) (0-5) /hpf Urine RBC (Auto) (0-4) /hpf U Hyaline Cast (Auto) (0-5) /lpf U Epithel Cells (Auto) (0-5) /lpf Urine Bacteria (Auto) (Negative) Adenovirus (PCR) (NotDetected) B. pertussis DNA (PCR) (NotDetected) B.parapertussis DNA PCR (NotDetected) C. pneumoniae DNA (PCR) (NotDetected) Coronavirus OC43 (PCR) (NotDetected) Coronavirus HKU1 (PCR) (NotDetected) Coronavirus 229E (PCR) (NotDetected) SARS-CoV-2 (PCR) (NotDetected) Coronavirus NL63 (PCR) (NotDetected) Human Metapneumovir PCR (NotDetected) Influenza Type A (PCR) (NotDetected) Influenza Type B (PCR) (NotDetected) M. pneumoniae (PCR) (NotDetected) Parainfluenza 1 (PCR) (NotDetected) Parainfluenza 2 (PCR) (NotDetected) Parainfluenza 3 (PCR) (NotDetected) Parainfluenza 4 (PCR) (NotDetected) RSV (PCR) (NotDetected) Entero/Rhino (PCR) (NotDetected) Administered Medications Discontinued Medications Acetaminophen (Acetaminophen 1000 Mg/100 Ml Iv) 1,000 mg IV NOW STA Stop: 11/07/21 09:33 Last Admin: 11/07/21 10:27 Dose: 1,000 mg Documented by: [id number] Sodium Chloride (Nss 1000ml) 1,000 mls @ 999 mls/hr IV .[id number] Stop: 11/07/21 10:45 Last Infusion: 11/07/21 11:31 Dose: 0 mls/hr Documented by: [id number] Admin: 11/07/21 10:27 Dose: 999 mls/hr Documented by: [id number] Cefepime HCl (Maxipime) 2,000 mg in 20 mls @ 5 mls/min IV NOW STA; Protocol Stop: 11/07/21 09:35 Last Admin: 11/07/21 10:27 Dose: 5 mls/min Documented by: [id number] Imaging Data Radiologist's Impression: Cervical Spine CT 11/07/21 09:32 CT OF THE CERVICAL SPINE WITHOUT CONTRAST CLINICAL HISTORY: fall COMPARISON STUDY: Cervical spine CT July 05, 2020. TECHNIQUE: Helical axial images of the cervical spine were obtained without IV contrast. Sagittal and coronal reconstructions were viewed. Automated exposure control was utilized for the study. A dose lowering technique was utilized adhering to the principles of ALARA. FINDINGS: Alignment of the cervical spine is anatomic. Vertebral body heights are maintained. No acute cervical spine fracture or subluxation is present. There is no prevertebral edema. Facet joints are intact. Severe multilevel facet arthrosis, disc space narrowing and osteophytosis of the cervical spine is noted. Appearance is similar to prior CT. There is mild leftward curvature of the cervical spine. Small left mastoid effusion is unchanged. IMPRESSION: 1. No acute cervical spine fracture or subluxation. 2. Severe multilevel degenerative changes within the cervical spine. ACT 112: Negative or not required by law. Electronically signed by: Jose Ontiveros M.D. 11/07/2021 10:27 AM Chest X-Ray 11/07/21 09:32 XR chest 1V portable CLINICAL HISTORY: SEPSIS COMPARISON STUDY: Chest radiograph October 26, 2021. FINDINGS: Lung volumes are normal. Lungs are clear. There is no pneumothorax or pleural effusion. Cardiomegaly is unchanged. Mediastinal contours are normal. There is no evidence for pulmonary edema. IMPRESSION: No acute cardiopulmonary findings. ACT 112: Negative or not required by law. Electronically signed by: Jose Ontiveros M.D. 11/07/2021 10:[address] 11/07/21 09:32 CT OF THE HEAD WITHOUT CONTRAST CLINICAL HISTORY: fall COMPARISON STUDY: Head CT October 26, 2021. TECHNIQUE: Helical axial images of the head were obtained without IV contrast. Automated exposure control was utilized for the study. A dose lowering technique was utilized adhering to the principles of ALARA. FINDINGS: No acute intracranial hemorrhage, midline shift or mass effect is present. White matter hypodensities are unchanged and favor small vessel disease. The ventricular system is unremarkable. The basal cisterns are patent. No extra-axial collections are present. There are no findings to suggest acute dural sinus thrombosis or acute territorial infarct. No significant calvarial abnormalities are present. Trace left mastoid effusion is unchanged from earlier studies. IMPRESSION: 1. No acute intracranial findings. No change in appearance of the brain. 2. No acute calvarial fracture. ACT 112: Negative or not required by law. Electronically signed by: Jose Ontiveros M.D. 11/07/2021 10:11 AM Pelvis X-Ray 11/07/21 09:32 XR pelvis 1-2V routine CLINICAL HISTORY: fall COMPARISON: Pelvis radiograph December 08, 2009. CT of the abdomen and pelvis October 26, 2021. FINDINGS: Brachytherapy seeds within the prostate, left hip arthroplasty and Fuentes catheter are incidentally noted. There is no acute fracture within the pelvis or hips. Moderate to severe right hip osteoarthritis is noted. IMPRESSION: 1. No acute fracture within the pelvis or hips. 2. Intact total left hip arthroplasty, partially imaged. ACT 112: Negative or not required by law. Electronically signed by: Jose Ontiveros M.D. 11/07/2021 10:22 AM Discharge Plan Visit Data Chief Complaint: Illness ED Provider: Miguel Peoples Discharge Problem: Sepsis, Weakness, Fall, Acute UTI, Leukocytosis Patient Disposition: Admitted As Inpatient Condition: Fair Forms Stand Alone Forms: [facility] Prescriptions Prescriptions: No Action multivitamin Tablet 1 tab PO DAILY RF: 0 metformin 500 mg Tablet Extended Release 24 Hr 500 mg PO BID RF: 0 Trulicity 3 mg/0.5 mL Pen Injector 3 mg SUBCUT WK RF: 0 cod liver oil Capsule 1 cap PO DAILY RF: 0 hydrocodone-acetaminophen 10-325 mg tablet 1 tab PO TID PRN (Reason: Pain) RF: 0 aspirin 81 mg Tablet,Delayed Release (Dr/Ec) 81 mg PO DAILY RF: 0 spironolactone 25 mg tablet 12.5 mg PO DAILY RF: 0 tamsulosin 0.4 mg capsule 0.8 mg PO DAILY@1800 RF: 0 potassium chloride 10 mEq tablet,ER particles/crystals 10 meq PO DAILY RF: 0 insulin glargine [Lantus Solostar U-100 Insulin] 100 unit/mL (3 mL) insulin pen 35 units subcut BID RF: 0 omega 1-orr-lpd-fish oil 1,000 mg (120 mg-180 mg) Capsule 1 cap PO DAILY RF: 0 mthis-gxkfb-0-ayt-yeq-abcmmv [krill oil] 947-97-44-50 mg Capsule 1 cap PO DAILY RF: 0 guaifenesin 600 mg Tablet Extended Release 12hr 600 mg PO BID PRN (Reason: Congestion) RF: 0 ascorbic acid (vitamin C) 500 mg Capsule 500 mg PO DAILY RF: 0 pantoprazole 40 mg tablet,delayed release (DR/EC) 40 mg PO DAILY RF: 0 allopurinol 300 mg tablet 300 mg PO QAM RF: 0 pravastatin 20 mg tablet 20 mg PO HS RF: 0 gabapentin 100 mg capsule 100 mg PO BID RF: 0 carbidopa-levodopa 25-100 mg tablet 0.5 tab PO BID RF: 0 torsemide 20 mg tablet 20 mg PO DAILY RF: 0 Jardiance 10 mg tablet 10 mg PO DAILY RF: 0 ibuprofen 600 mg Tablet 600 mg PO Q8H PRN (Reason: knee pain) Qty: 30 RF: 0 Referrals Referrals: Latha Gómez DO [Primary Care Provider] -
[2021-11-07] MEDS ORDERED: SODIUM CHLORIDE 0.9% 1000ML 1,000 ML IV SCH (09:45)
[2021-11-07 10:01] LABS: Appearance Urine Turbid (Clear); Bacteria Urine Automated 4+ (Negative); Bilirubin Urine Negative (Negative); Blood Urine 3+ (Negative); Color Urine Yellow; Glucose Urine UA 3+ (Negative); Ketones Urine Negative (Negative); Leukocyte Esterase Urine 2+ (Negative); Nitrite Urine Positive (Negative); Protein Urine Trace (Negative); RBC Urine Automated >30 /hpf (0-4); Urobilinogen Urine Negative (Negative); WBC Urine Automated >30 /hpf (0-5); pH Urine 5.5 (4.5-7.5)
[2021-11-07 10:10] LABS: Hemoglobin 12.9 g/dL (14.0-18.0); Mean Corpuscular Hemoglobin 31.6 pg (25-34); Mean Corpuscular Hgb Conc 33.9 g/dL (32-36); Mean Corpuscular Volume 93.1 fL (80-100); Mean Platelet Volume 10.9 fL (7.4-10.4); Platelet Count 240 K/uL (130-400); RDW Coefficient of Variation 13.3 % (11.5-14.5); RDW Standard Deviation 45.5 fL (36.4-46.3); Red Blood Count 4.08 M/uL (4.7-6.1); White Blood Count 17.67 K/uL (4.8-10.8)
[2021-11-07 10:13] LABS: INR 1.1 (0.9-1.1); Partial Thromboplastin Time 28.8 Seconds (21.0-31.0); Prothrombin Time 11.3 Seconds (9.0-12.0)
--- NOTE | 2021-11-07 10:14 | CT Scan Report ---
CT OF THE HEAD WITHOUT CONTRAST CLINICAL HISTORY: fall COMPARISON STUDY: Head CT October 26, 2021. TECHNIQUE: Helical axial images of the head were obtained without IV contrast. Automated exposure con trol was utilized for the study. A dose lowering technique was utilized adhering to the principles o f ALARA. FINDINGS: No acute intracranial hemorrhage, midline shift or mass effect is present. White matter hyp odensities are unchanged and favor small vessel disease. The ventricular system is unremarkable. The basal cisterns are patent. No extra-axial collections are present. There are no findings to suggest a cute dural sinus thrombosis or acute territorial infarct. No significant calvarial abnormalities are present. Trace left mastoid effusion is unchanged from earlier studies. IMPRESSION: 1. No acute intracranial findings. No change in appearance of the brain. 2. No acute calvarial fracture. ACT 112: Negative or not required by law. Electronically signed by: Jose Ontiveros M.D. 11/07/2021 10:11 AM
--- NOTE | 2021-11-07 10:23 | XRay Report ---
XR pelvis 1-2V routine CLINICAL HISTORY: fall COMPARISON: Pelvis radiograph December 08, 2009. CT of the abdomen and pelvis October 26, 2021. FINDINGS: Brachytherapy seeds within the prostate, left hip arthroplasty and Fuentes catheter are inci dentally noted. There is no acute fracture within the pelvis or hips. Moderate to severe right hip os teoarthritis is noted. IMPRESSION: 1. No acute fracture within the pelvis or hips. 2. Intact total left hip arthroplasty, partially imaged. ACT 112: Negative or not required by law. Electronically signed by: Jose Ontiveros M.D. 11/07/2021 10:22 AM
[2021-11-07 10:25] LABS: Alanine Aminotransferase 81 U/L (7-52); Albumin Globulin Ratio 1.1 (0.9-2); Albumin Level 3.8 gm/dl (3.4-5.0); Alkaline Phosphatase 203 U/L (34-104); Anion Gap 10 (3-11); Aspartate Aminotransferase 62 U/L (13-39); Bilirubin,Total 1.2 mg/dl (0.2-1.0); Blood Urea Nitrogen 45 mg/dl (6-23); Calcium 9.4 mg/dl (8.5-10.1); Carbon Dioxide 26 mmol/L (21-32); Chloride 98 mmol/L (98-107); Est GFR (African American) 41.4 ml/min; Est GFR (Non-African American) 35.7 ml/min; Globulin 3.5 gm/dl (2.5-4.0); Glucose 239 mg/dl (70-99(Fasting)); Magnesium 1.7 mg/dl (1.7-2.4); Potassium 4.8 mmol/L (3.5-5.1); Sodium 134 mmol/L (136-145); Total Protein 7.3 gm/dl (6.0-8.3)
[2021-11-07 10:27] LABS: Basophils # (auto) 0.02 K/uL (0-0.2); Basophils % (auto) 0.1 %; Eosinophils # (auto) 0.01 K/uL (0-0.5); Eosinophils % (auto) 0.1 %; Immature Granulocytes # (auto) 0.06 K/uL (0.00-0.02); Immature Granulocytes % (auto) 0.3 %; Lymphocytes # (auto) 0.65 K/uL (1.2-3.4); Lymphocytes % (auto) 3.7 %; Monocytes # (auto) 0.71 K/uL (0.11-0.59); Neutrophils # (auto) 16.22 K/uL (1.4-6.5); Neutrophils % (auto) 91.8 %
--- NOTE | 2021-11-07 10:29 | CT Scan Report ---
CT OF THE CERVICAL SPINE WITHOUT CONTRAST CLINICAL HISTORY: fall COMPARISON STUDY: Cervical spine CT July 05, 2020. TECHNIQUE: Helical axial images of the cervical spine were obtained without IV contrast. Sagittal a nd coronal reconstructions were viewed. Automated exposure control was utilized for the study. A do se lowering technique was utilized adhering to the principles of ALARA. FINDINGS: Alignment of the cervical spine is anatomic. Vertebral body heights are maintained. No acut e cervical spine fracture or subluxation is present. There is no prevertebral edema. Facet joints are intact. Severe multilevel facet arthrosis, disc space narrowing and osteophytosis of the cervical sp ine is noted. Appearance is similar to prior CT. There is mild leftward curvature of the cervical spi ne. Small left mastoid effusion is unchanged. IMPRESSION: 1. No acute cervical spine fracture or subluxation. 2. Severe multilevel degenerative changes within the cervical spine. ACT 112: Negative or not required by law. Electronically signed by: Jose Ontiveros M.D. 11/07/2021 10:27 AM
--- NOTE | 2021-11-07 10:29 | XRay Report ---
XR chest 1V portable CLINICAL HISTORY: SEPSIS COMPARISON STUDY: Chest radiograph October 26, 2021. FINDINGS: Lung volumes are normal. Lungs are clear. There is no pneumothorax or pleural effusion. Car diomegaly is unchanged. Mediastinal contours are normal. There is no evidence for pulmonary edema. IMPRESSION: No acute cardiopulmonary findings. ACT 112: Negative or not required by law. Electronically signed by: Jose Ontiveros M.D. 11/07/2021 10:27 AM
[2021-11-07 10:32] LABS: Troponin I High Sensitivity 10.7 pg/ml (0-20)
[2021-11-07 10:50] LABS: Adenovirus PCR Not Detected (NotDetected); Bordetella parapertussis PCR Not Detected (NotDetected); Bordetella pertussis PCR Not Detected (NotDetected); Chlamydia pneumoniae PCR Not Detected (NotDetected); Coronavirus 229E PCR Not Detected (NotDetected); Coronavirus CoV-2 (COVID19)PCR Not Detected (NotDetected); Coronavirus HKU1 PCR Not Detected (NotDetected); Coronavirus NL63 PCR Not Detected (NotDetected); Coronavirus OC43PCR Not Detected (NotDetected); Human Metapneumovirus PCR Not Detected (NotDetected); Influenza A PCR Not Detected (NotDetected); Influenza B PCR Not Detected (NotDetected); Mycoplasma pneumoniae PCR Not Detected (NotDetected); Parainfluenza Virus 1 PCR Not Detected (NotDetected); Parainfluenza Virus 2 PCR Not Detected (NotDetected); Parainfluenza Virus 3 PCR Not Detected (NotDetected); Parainfluenza Virus 4 PCR Not Detected (NotDetected); Respiratory Syncytial VirusPCR Not Detected (NotDetected); Rhinovirus/Enterovirus PCR Not Detected (NotDetected)
[2021-11-07] MEDS ORDERED: GLUCOSE 10 TABS/TUBE PO PRN (12:51)
[2021-11-07] MEDS ORDERED: ALUMINUM/MAGNESIUM SUSP 30 ML UDC PO PRN (12:51)
[2021-11-07] MEDS ORDERED: GLUCOSE 40% GEL 15 GM TUBE PO PRN (12:51)
[2021-11-07] MEDS ORDERED: ONDANSETRON INJ 2 MG/ML 2 ML VIAL IV PRN (12:51)
[2021-11-07] MEDS ORDERED: POLYETHYLENE (MIRALAX) 17 GM PACK PO PRN (12:51)
[2021-11-07] MEDS ORDERED: CARBOHYDRATES FOR HYPOGLYCEMIA PO PRN (12:51)
[2021-11-07] MEDS ORDERED: MAGNESIUM HYDROXIDE SUSP 30 ML UDC PO PRN (12:51)
[2021-11-07] MEDS ORDERED: ACETAMINOPHEN 325 MG TAB PO PRN (12:51)
[2021-11-07] MEDS ORDERED: GLUCAGON FOR INJ 1 MG VIAL SQ PRN (12:51)
[2021-11-07] MEDS ORDERED: DEXTROSE 50% 50 ML SYRINGE IV PRN (12:51)
[2021-11-07] MEDS ORDERED: HYDROcodone/ACETAMINOPHEN 10/325 TAB PO PRN (12:56)
--- NOTE | 2021-11-07 13:16 | History & Physical Report ---
Date of Service November 07, 2021 Assessment & Plan (1) Sepsis: (2) Acute UTI: (3) Encephalopathy: (4) Fall: (5) Parkinsons: (6) (HFpEF) heart failure with preserved ejection fraction: (7) Type 2 diabetes mellitus: (8) Chronic back pain: (9) History of prostate cancer: (10) CKD (chronic kidney disease), stage III: Plan: Pt is a 81 y/o M with hx of IDDM, Parkinsons disease on Sinemet, HLD, CKD III with anemia, HTN, Depression, Lumbar DDD, on chronic pain medication, Hepatic steatosis, HFpEF, Prostate Ca s/p Prostate Seed implantation, hearing loss, ambulatory dysfunction admitted for Urosepsis and fall. Urosepsis with metabolic encephalopathy: -Increased Lactic Acid with fever and increased procal -AAOx2 (at baseline AAOX3 per friend) -no chronic catheter placement --- will continue cefepime -UCx and BCx pending -repeat LA improved - normal BP and HR Mechanical fall: -hx of multiple falls with hx of Parkinsons disease -at baseline pt walks with walker - CT head, CT spine, pelvic xray and CXR: no acute finding -will get PT/OT -will consult case management : pt likely need home health aid service on discharge Elevated T bili and LFts: -had elevated Tbili and LFTs last admission as well -does have hx of Hepatic steatosis - if it worsens then will get CT abd but for now will trend HFrEF: -pt appeared euvolemic -will do Strict I/O -due to current urosepsis and low normal BP will hold torsemide and continue aldactone Parkinsons disease: -continue Sinemet IDDM: -continue home lantus units - hold metformin and continue jardiance CKD III with anemia: -baseline Cr 1.4-1.5 -will continue to monitor Cr -hgb is near his baseline Chronic pain on narcotic: -continue home gabapentin, hydrocodone Gout/Depression/BPH/Hx of Prostate Ca: -continue home meds Diet:Cardiac, Renal DVT PPx: Heparin Code Status:FULL CODE Emergency Contact: Varsha-friend [phone] Admission and Anticipated Discharge Date Admission Date: November 07, 2021 History of Present Illness Chief Complaint: fall Primary Care Provider: Latha Gómez DO Pt is a 81 y/o M with hx of IDDM, Parkinsons disease on Sinemet, HLD, CKD III with anemia, HTN, Depression, Lumbar DDD, on chronic pain medication, Hepatic st eatosis, HFpEF, Prostate Ca s/p Prostate Seed implantation, hearing loss, ambulatory dysfunction with multiple falls brought in from home after a fall. Obtained information from pts friend (varsha) who pt lives with: pt returned from [facility] rehab 3 days ago. Today morning he had a mechanical fall therefore EMS was called. At baseline pt walks with walker. Home nurse comes once a week, otherwise pt gets help from Varsha and her with cooking, cleaning and medication. Pts brother lives close by as well. He does not have daily home health aid. At bedside: pt complained of abd pain, Nausea and b/l leg pain. Denied any SOB, CP or ZEPEDA. Allergies Allergy/AdvReac Type Severity Reaction Status Date / Time No Known Allergies Verified 10/26/21 03:07 Home Medications Medication Instructions Recorded Confirmed Type ascorbic acid (vitamin C) 500 mg 500 mg PO DAILY 07/31/18 11/07/21 History capsule aspirin 81 mg tablet,delayed 81 mg PO DAILY 07/31/18 11/07/21 History release hydrocodone 10 mg-acetaminophen 1 tab PO TID PRN 07/31/18 11/07/21 History 325 mg tablet insulin glargine 100 unit/mL (3 50 units SUBCUT BID 07/31/18 11/07/21 History mL) subcutaneous pen (Lantus Solostar U-100 Insulin) omega 8-krw-hbz-fish oil 1,000 mg 1 cap PO DAILY 07/31/18 11/07/21 History (120 mg-180 mg) capsule potassium chloride 10 mEq 10 meq PO DAILY 07/31/18 11/07/21 History tablet,extended release(part/cryst) spironolactone 25 mg tablet 12.5 mg PO DAILY 07/31/18 11/07/21 History tamsulosin 0.4 mg capsule 0.4 mg PO DAILY@1800 07/31/18 11/07/21 History multivitamin 1 tab PO DAILY 07/05/20 11/07/21 History dulaglutide 3 mg/0.5 mL 3 mg SUBCUT WK 07/07/20 11/07/21 History subcutaneous pen injector (Trulicity) metformin 500 mg tablet,extended 500 mg PO BIDM 07/07/20 11/07/21 History release 24 hr allopurinol 300 mg tablet 300 mg PO QAM 10/26/21 11/07/21 History carbidopa 25 mg-levodopa 100 mg 1 tab PO BID 10/26/21 11/07/21 History tablet empagliflozin 10 mg tablet 10 mg PO DAILY 10/26/21 11/07/21 History (Jardiance) gabapentin 100 mg capsule 100 mg PO BID 10/26/21 11/07/21 History pantoprazole 40 mg tablet,delayed 40 mg PO DAILY 10/26/21 11/07/21 History release pravastatin 20 mg tablet 20 mg PO HS 10/26/21 11/07/21 History torsemide 20 mg tablet 20 mg PO DAILY 10/26/21 11/07/21 History citalopram 20 mg tablet 20 mg PO DAILY 11/07/21 11/07/21 History famotidine 20 mg tablet 20 mg PO HS 11/07/21 11/07/21 History Past Med/Surg History Medical History (Updated 11/07/21 @ 13:13 by Harvinder Jeong MD) (HFpEF) heart failure with preserved ejection fraction Chronic back pain Chronic diastolic heart failure CKD (chronic kidney disease), stage III Diaphragmatic hernia Diverticulitis GERD (gastroesophageal reflux disease) History of prostate cancer Hyperlipidemia Hypertension Narcotic dependence Parkinsons Prostate cancer "Prostate, adenocarcinoma, cristina 3 + 3, PSA 6.66, cT1c, group I TREATMENT: Prostate seed implant - Cesium 131 - 06/30/2011 - monotherapy alone, Lupron for 6 months prior to implantation." Type 2 diabetes mellitus Venous insufficiency Surgical History History of hip replacement History of knee replacement Status post hernia repair Family History Mother Stroke Social History Smoking Status: Former smoker Tobacco Type: Smokeless Tobacco (Dip or Chew) Second Hand Exposure: No; Hx Alcohol Use: Yes Alcohol type: beer Alcohol Intake Frequency Comment: history of daily use, recently quit Hx Substance Use: No Preferred Language: Yemeni Communication Ability: Effective 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 Normocephalic and atraumatic, Normal Conjunctiva, EOMI, Sclera is non- icteric Lungs:. No signs of respiratory distress, CTA, no wheezing or crackles Heart:. Normal S1, S2, no murmur Abdominal:.obese abd, soft, diffuse mild TTP MSK:.b/l mild pitting edema of the LE Psych:AAOx2 (unable to recall the place) Results & Data Results & Data ([facility]) Vital Signs (Past 12 Hours) Vital Signs Temp Pulse Resp BP Pulse Ox 11/07/21 12:00 91 H 17 130/63 93 11/07/21 11:01 37.6 C H 11/07/21 11:00 94 11/07/21 10:45 104 H 19 94 11/07/21 10:30 109 H 19 136/60 95 11/07/21 09:53 116 H 20 144/74 H 95 11/07/21 09:45 114 H 21 94 11/07/21 09:32 93 11/07/21 09:30 115 H 27 H 93 11/07/21 09:18 112 H 21 96 11/07/21 09:01 39.5 C H 119 H 24 162/79 H 88 L Code Status & VTE Plan VTE Prophylaxis Plan VTE Prophylaxis will be ordered: Yes (1) Sepsis Sepsis acute organ dysfunction status: without acute organ dysfunction Sepsis type: sepsis due to unspecified organism Qualified Code(s): A41.9 - Sepsis, unspecified organism
[2021-11-07] MEDS ORDERED: CEFEPIME 2,000 MG in SYRINGE 0 ML IV SCH (14:00)
[2021-11-07] MEDS: HEPARIN SOD 5,000 UNIT/0.5 ML VIAL SQ SCH ×2 (15:00→20:38)
[2021-11-07] MEDS: TAMSULOSIN HCL 0.4 MG CAP PO SCH (17:08)
[2021-11-07] MEDS: INSULIN ASPART PER UNIT SC SCH ×2 (17:09→20:35)
[2021-11-07] MEDS: CEFEPIME 2,000 MG in SYRINGE 0 ML IV SCH (17:13)
[2021-11-07] MEDS: INSULIN GLARGINE SOLOSTAR 100 UNITS/ML 3 ML PEN SC SCH (20:35)
[2021-11-07] MEDS: GABAPENTIN 100 MG CAP PO SCH (20:36)
[2021-11-07] MEDS: PRAVASTATIN SOD 20 MG TAB PO SCH (20:37)
[2021-11-07] MEDS: CARBIDOPA/LEVODOPA 25/100MG TAB PO SCH (20:37)
[2021-11-07] MEDS: FAMOTIDINE 20 MG TAB PO SCH (20:37)
[2021-11-08] MEDS: CEFEPIME 2,000 MG in SYRINGE 0 ML IV SCH (02:05)
[2021-11-08] MEDS: HEPARIN SOD 5,000 UNIT/0.5 ML VIAL SQ SCH ×3 (06:03→21:04)
[2021-11-08 07:51] LABS: Albumin Level 3.3 gm/dl (3.4-5.0); BUN Creatinine Ratio 25.4 (10-20); Bilirubin,Total 0.9 mg/dl (0.2-1.0); Creatinine Clr Calc Pharmacy 55.7 ml/min; Est GFR (African American) 56.4 ml/min; Est GFR (Non-African American) 48.6 ml/min; Globulin 3.3 gm/dl (2.5-4.0); Potassium 4.2 mmol/L (3.5-5.1); Total Protein 6.6 gm/dl (6.0-8.3)
[2021-11-08] MEDS: SPIRONOLACTONE 12.5 MG TAB PO SCH (08:09)
[2021-11-08] MEDS: GABAPENTIN 100 MG CAP PO SCH ×2 (08:09→21:04)
[2021-11-08] MEDS: CARBIDOPA/LEVODOPA 25/100MG TAB PO SCH ×2 (08:09→21:03)
[2021-11-08] MEDS: ASPIRIN 81 MG ECTAB PO SCH (08:10)
[2021-11-08] MEDS: allopurinoL 300 MG TAB PO SCH (08:10)
[2021-11-08] MEDS: MULTIVITAMIN TAB PO SCH (08:10)
[2021-11-08] MEDS: PANTOprazole 40 MG TAB PO SCH (08:10)
[2021-11-08] MEDS: ASCORBIC ACID 500 MG TAB PO SCH (08:11)
[2021-11-08] MEDS: CITALOPRAM 20 MG TAB PO SCH (08:11)
[2021-11-08] MEDS: OMEGA-3 (PURIFIED FISH OIL) 1 GM CAP PO SCH (08:11)
[2021-11-08] MEDS: INSULIN ASPART PER UNIT SC SCH ×4 (08:14→20:34)
[2021-11-08] MEDS: INSULIN GLARGINE SOLOSTAR 100 UNITS/ML 3 ML PEN SC SCH ×2 (08:15→21:04)
[2021-11-08 08:26] LABS: Basophils # (auto) 0.03 K/uL (0-0.2); Basophils % (auto) 0.3 %; Eosinophils # (auto) 0.16 K/uL (0-0.5); Eosinophils % (auto) 1.5 %; Hematocrit (blood only) 35.3 % (42-52); Hemoglobin 11.4 g/dL (14.0-18.0); Immature Granulocytes # (auto) 0.05 K/uL (0.00-0.02); Immature Granulocytes % (auto) 0.5 %; Lymphocytes # (auto) 2.21 K/uL (1.2-3.4); Lymphocytes % (auto) 20.5 %; Mean Corpuscular Hemoglobin 30.2 pg (25-34); Mean Corpuscular Hgb Conc 32.3 g/dL (32-36); Mean Corpuscular Volume 93.4 fL (80-100); Mean Platelet Volume 10.9 fL (7.4-10.4); Monocytes # (auto) 1.12 K/uL (0.11-0.59); Monocytes % (auto) 10.4 %; Neutrophils # (auto) 7.23 K/uL (1.4-6.5); Neutrophils % (auto) 66.8 %; Platelet Count 246 K/uL (130-400); RDW Coefficient of Variation 13.7 % (11.5-14.5); RDW Standard Deviation 46.8 fL (36.4-46.3); Red Blood Count 3.78 M/uL (4.7-6.1)
--- NOTE | 2021-11-08 10:00 | Electrocardiogram Report ---
Test Reason : Blood Pressure : / mmHG Vent. Rate : 111 BPM Atrial Rate : 111 BPM P-R Int : 224 ms QRS Dur : 084 ms QT Int : 318 ms P-R-T Axes : 099 039 071 degrees QTc Int : 432 ms Sinus tachycardia with 1st degree A-V block Septal infarct , age undetermined Abnormal ECG When compared with ECG of 26-OCT-2021 03:17, CO interval has increased Septal infarct is now Present likely secondary to lead placement Confirmed by Kb Heard ([id number]) on 11/08/2021 9:59:56 AM Referred By: REFERRED SELF Confirmed By:Kb Heard
[2021-11-08] MEDS: CEFEPIME 1,000 MG in SYRINGE 0 ML IV SCH ×2 (12:00→21:05)
--- NOTE | 2021-11-08 17:26 | Hospitalist Progress Note ---
Date of Service November 08, 2021 Assessment & Plan (1) Sepsis: (2) Acute UTI: (3) Encephalopathy: (4) Fall: (5) Parkinsons: (6) (HFpEF) heart failure with preserved ejection fraction: (7) Type 2 diabetes mellitus: (8) Chronic back pain: (9) History of prostate cancer: (10) CKD (chronic kidney disease), stage III: Plan: Pt is a 81 y/o M with hx of IDDM, Parkinsons disease on Sinemet, HLD, CKD III with anemia, HTN, Depression, Lumbar DDD, on chronic pain medication, Hepatic steatosis, HFpEF, Prostate Ca s/p Prostate Seed implantation, hearing loss, ambulatory dysfunction admitted for Urosepsis and fall. Urosepsis with metabolic encephalopathy: Met sepsis criteria on admission with elevating tachycardia, elevated WBC, lactic acid and procalcitonin on admission Urine cx grew gram negative bacilli Continue IV abx with Cefepime Continue monitor closley Mechanical fall: hx of multiple falls with hx of Parkinsons disease at baseline pt walks with walker CT head, CT spine, pelvic xray and CXR: no acute finding PT/OT eval Elevated T bili and LFT Possible related to the acute illness Liver enzymes normalized with AST 38, ALT 29 Stable HFrEF: No sign of volume overload Will reume Torsemide and spironolactone Parkinsons disease: continue Sinemet IDDM: Hba1c pending continue home lantus units Continue to hold metformin and continue jardiance continue monitor BS CKD III with anemia: Creatinine on admission 1.7, baseline Cr 1.4-1.5 Creatinine improved to 1.3 Continue monitor BMP Chronic pain on narcotic: continue home gabapentin, hydrocodone Gout/Depression/BPH/Hx of Prostate Ca: continue home meds DVT PPx: Heparin Code Status: FULL CODE Emergency Contact: Maria Dolores-friend [phone] Admission and Anticipated Discharge Date Admission Date: November 07, 2021 Subjective Pt was seen and examined for follow up of UTI Lying in bed with no acute distress eating his lunch Pt said that he feels ok He said energy seems to improve Denies any chest pain, palpitation, dizziness and SOB Review of Systems Review of Systems: All systems reviewed & are unremarkable except as noted in Subjective Physical Exam Physical Exam: General- No acute distress Head- atraumatic Eyes- PERRL, EOMI, ENT- oropharynx clear Neck- supple, no JVD Lungs- Diminished Heart- regular rhythm; no murmur Abdomen- normal bowel sounds, soft, nontender Extremities- no calf tenderness, Right knee pain, chronic venous stasis, bilateral lower extremity edema Neuro- alert, oriented x 3; PERRL, EOMI; no facial palsy; no dysarthria Skin- warm & dry Results & Data Results & Data ([facility]) Vital Signs (Past 12 Hours) Vital Signs Temp Pulse Pulse Resp BP Pulse Ox Pulse Ox 11/08/21 15:20 36.9 C 62 17 143/63 H 96 11/08/21 12:51 93 11/08/21 10:51 36.7 C 66 19 136/73 95 11/08/21 08:00 67 11/08/21 07:28 36.6 C 66 18 121/72 92 (1) Sepsis Sepsis acute organ dysfunction status: without acute organ dysfunction Sepsis type: sepsis due to unspecified organism Qualified Code(s): A41.9 - Sepsis, unspecified organism
[2021-11-08] MEDS: TAMSULOSIN HCL 0.4 MG CAP PO SCH (17:34)
[2021-11-08] MEDS ORDERED: CEFEPIME 2,000 MG in SYRINGE 0 ML IV SCH (18:30)
[2021-11-08] MEDS: FAMOTIDINE 20 MG TAB PO SCH (21:03)
[2021-11-08] MEDS: PRAVASTATIN SOD 20 MG TAB PO SCH (21:03)
[2021-11-09] MEDS: HEPARIN SOD 5,000 UNIT/0.5 ML VIAL SQ SCH ×3 (06:05→21:10)
[2021-11-09 06:58] LABS: BUN Creatinine Ratio 22.6 (10-20); Creatinine Clr Calc Pharmacy 59.9 ml/min; Est GFR (African American) 61.9 ml/min; Est GFR (Non-African American) 53.4 ml/min; Potassium 4.3 mmol/L (3.5-5.1)
[2021-11-09] MEDS: TORSEMIDE 20 MG TAB PO SCH (08:00)
[2021-11-09] MEDS: CEFEPIME 1,000 MG in SYRINGE 0 ML IV SCH (08:01)
[2021-11-09] MEDS: MULTIVITAMIN TAB PO SCH (08:01)
[2021-11-09 08:10] LABS: Estimated Average Glucose 269 mg/dl
[2021-11-09] MEDS: INSULIN GLARGINE SOLOSTAR 100 UNITS/ML 3 ML PEN SC SCH ×2 (08:14→20:45)
[2021-11-09] MEDS: INSULIN ASPART PER UNIT SC SCH ×4 (08:14→21:06)
[2021-11-09] MEDS ORDERED: TORSEMIDE 20 MG TAB PO PRN (09:00)
[2021-11-09] MEDS: ASCORBIC ACID 500 MG TAB PO SCH (09:09)
[2021-11-09] MEDS: allopurinoL 300 MG TAB PO SCH (09:09)
[2021-11-09] MEDS: CARBIDOPA/LEVODOPA 25/100MG TAB PO SCH ×2 (09:10→20:53)
[2021-11-09] MEDS: OMEGA-3 (PURIFIED FISH OIL) 1 GM CAP PO SCH (09:10)
[2021-11-09] MEDS: ASPIRIN 81 MG ECTAB PO SCH (09:10)
[2021-11-09] MEDS: CITALOPRAM 20 MG TAB PO SCH (09:10)
[2021-11-09] MEDS: PANTOprazole 40 MG TAB PO SCH (09:10)
[2021-11-09] MEDS: SPIRONOLACTONE 12.5 MG TAB PO SCH (09:10)
[2021-11-09] MEDS: GABAPENTIN 100 MG CAP PO SCH ×2 (09:10→20:53)
[2021-11-09] MEDS: TAMSULOSIN HCL 0.4 MG CAP PO SCH (17:26)
[2021-11-09] MEDS: FAMOTIDINE 20 MG TAB PO SCH (20:53)
[2021-11-09] MEDS: PRAVASTATIN SOD 20 MG TAB PO SCH (20:54)
[2021-11-09] MEDS: cefTRIAXone SODIUM 2,000 MG in DEXTROSE 5% 50 ML IV SCH (21:01)
--- NOTE | 2021-11-09 23:46 | Hospitalist Progress Note ---
Date of Service November 09, 2021 Assessment & Plan (1) Sepsis: (2) Acute UTI: (3) Encephalopathy: (4) Fall: (5) Parkinsons: (6) (HFpEF) heart failure with preserved ejection fraction: (7) Type 2 diabetes mellitus: (8) Chronic back pain: (9) History of prostate cancer: (10) CKD (chronic kidney disease), stage III: Plan: Pt is a 81 y/o M with hx of IDDM, Parkinsons disease on Sinemet, HLD, CKD III with anemia, HTN, Depression, Lumbar DDD, on chronic pain medication, Hepatic steatosis, HFpEF, Prostate Ca s/p Prostate Seed implantation, hearing loss, ambulatory dysfunction admitted for Urosepsis and fall. Urosepsis with metabolic encephalopathy: Met sepsis criteria on admission with elevating tachycardia, elevated WBC, lactic acid and procalcitonin on admission Urine cx grew gram negative bacilli - Klebsiella IV Cefepime changed to Ceftriaxone Continue monitor closely Mechanical fall: hx of multiple falls with hx of Parkinsons disease at baseline pt walks with walker CT head, CT spine, pelvic xray and CXR: no acute finding PT/OT on board recommended home with home health Fall precaution Elevated T bili and LFT Possible related to the acute illness Liver enzymes normalized with AST 38, ALT 29 Stable HFrEF: No sign of volume overload Continue Torsemide and spironolactone Parkinsons disease: continue Sinemet IDDM: Hba1c pending continue home lantus units Continue to hold metformin and continue jardiance continue monitor BS CKD III with anemia: Creatinine on admission 1.7, baseline Cr 1.4-1.5 Creatinine 1.2 today Continue monitor BMP Chronic pain on narcotic: continue home gabapentin, hydrocodone Gout/Depression/BPH/Hx of Prostate Ca: continue home meds DVT PPx: Heparin Code Status: FULL CODE Emergency Contact: Maria Dolores-friend [phone] Admission and Anticipated Discharge Date Admission Date: November 07, 2021 Subjective Pt was seen and examined for follow up of UTI Sitting in chair with no acute distress just finished eating his lunch He said that he feels much better He participates with therapy Denies any chest pain, palpitation, dizziness and SOB Review of Systems Review of Systems: All systems reviewed & are unremarkable except as noted in Subjective Physical Exam Physical Exam: General- No acute distress Head- atraumatic Eyes- PERRL, EOMI, ENT- oropharynx clear Neck- supple, no JVD Lungs- Diminished Heart- regular rhythm; no murmur Abdomen- normal bowel sounds, soft, nontender Extremities- no calf tenderness, Right knee pain, chronic venous stasis, bilateral lower extremity edema Neuro- alert, oriented x 3; PERRL, EOMI; no facial palsy; no dysarthria Skin- warm & dry Results & Data Results & Data ([facility]) Vital Signs (Past 12 Hours) Vital Signs Temp Pulse Pulse Resp BP Pulse Ox Pulse Ox 11/09/21 20:17 37.1 C 62 20 175/68 H 95 11/09/21 16:12 36.7 C 45 L 19 150/80 H 95 11/09/21 16:00 65 11/09/21 12:00 93 (1) Sepsis Sepsis acute organ dysfunction status: without acute organ dysfunction Sepsis type: sepsis due to unspecified organism Qualified Code(s): A41.9 - Sepsis, unspecified organism
[2021-11-10] MEDS: HEPARIN SOD 5,000 UNIT/0.5 ML VIAL SQ SCH ×3 (06:28→20:02)
[2021-11-10 06:34] LABS: Hematocrit (blood only) 35.8 % (42-52); Hemoglobin 11.9 g/dL (14.0-18.0); Mean Corpuscular Hemoglobin 30.5 pg (25-34); Mean Corpuscular Hgb Conc 33.2 g/dL (32-36); Mean Corpuscular Volume 91.8 fL (80-100); Mean Platelet Volume 10.7 fL (7.4-10.4); Platelet Count 269 K/uL (130-400); RDW Coefficient of Variation 13.5 % (11.5-14.5); RDW Standard Deviation 44.4 fL (36.4-46.3); White Blood Count 8.77 K/uL (4.8-10.8)
[2021-11-10 06:49] LABS: Est GFR (African American) 52.1 ml/min
[2021-11-10] MEDS: INSULIN ASPART PER UNIT SC SCH ×4 (08:06→20:02)
[2021-11-10] MEDS: allopurinoL 300 MG TAB PO SCH (08:07)
[2021-11-10] MEDS: ASPIRIN 81 MG ECTAB PO SCH (08:07)
[2021-11-10] MEDS: TORSEMIDE 20 MG TAB PO SCH (08:07)
[2021-11-10] MEDS: CARBIDOPA/LEVODOPA 25/100MG TAB PO SCH ×2 (08:07→20:03)
[2021-11-10] MEDS: CITALOPRAM 20 MG TAB PO SCH (08:07)
[2021-11-10] MEDS: GABAPENTIN 100 MG CAP PO SCH ×2 (08:08→20:03)
[2021-11-10] MEDS: PANTOprazole 40 MG TAB PO SCH (08:08)
[2021-11-10] MEDS: MULTIVITAMIN TAB PO SCH (08:08)
[2021-11-10] MEDS: ASCORBIC ACID 500 MG TAB PO SCH (08:08)
[2021-11-10] MEDS: INSULIN GLARGINE SOLOSTAR 100 UNITS/ML 3 ML PEN SC SCH ×2 (08:08→20:02)
[2021-11-10] MEDS: SPIRONOLACTONE 12.5 MG TAB PO SCH (08:08)
[2021-11-10] MEDS: OMEGA-3 (PURIFIED FISH OIL) 1 GM CAP PO SCH (09:21)
[2021-11-10] MEDS: TAMSULOSIN HCL 0.4 MG CAP PO SCH (17:15)
[2021-11-10] MEDS: PRAVASTATIN SOD 20 MG TAB PO SCH (20:03)
[2021-11-10] MEDS: FAMOTIDINE 20 MG TAB PO SCH (20:03)
[2021-11-10] MEDS: cefTRIAXone SODIUM 2,000 MG in DEXTROSE 5% 50 ML IV SCH (20:57)
--- NOTE | 2021-11-10 23:51 | Hospitalist Progress Note ---
Date of Service November 10, 2021 Assessment & Plan (1) Sepsis: (2) Acute UTI: (3) Encephalopathy: (4) Fall: (5) Parkinsons: (6) (HFpEF) heart failure with preserved ejection fraction: (7) Type 2 diabetes mellitus: (8) Chronic back pain: (9) History of prostate cancer: (10) CKD (chronic kidney disease), stage III: Plan: Pt is a 81 y/o M with hx of IDDM, Parkinsons disease on Sinemet, HLD, CKD III with anemia, HTN, Depression, Lumbar DDD, on chronic pain medication, Hepatic steatosis, HFpEF, Prostate Ca s/p Prostate Seed implantation, hearing loss, ambulatory dysfunction admitted for Urosepsis and fall. Urosepsis with metabolic encephalopathy: Met sepsis criteria on admission with elevating tachycardia, elevated WBC, lactic acid and procalcitonin on admission Urine cx grew gram negative bacilli - Klebsiella IV Cefepime changed to Ceftriaxone Continue ceftriaxone Clinically stable Mechanical fall: hx of multiple falls with hx of Parkinsons disease at baseline pt walks with walker CT head, CT spine, pelvic xray and CXR: no acute finding PT/OT on board Fall precaution Waiting for placement to rehab to [facility] Elevated T bili and LFT Possible related to the acute illness Liver enzymes normalized with AST 38, ALT 29 Stable HFrEF: No sign of volume overload Continue Torsemide and spironolactone Parkinsons disease: continue Sinemet IDDM: Hba1c pending continue home lantus units Continue to hold metformin and continue jardiance continue monitor BS CKD III Creatinine on admission 1.7, baseline Cr 1.4-1.5 Creatinine 1.4 today Continue monitor BMP Chronic pain on narcotic: continue home gabapentin, hydrocodone Gout/Depression/BPH/Hx of Prostate Ca: continue home meds DVT PPx: Heparin Code Status: FULL CODE Emergency Contact: Maria Dolores-friend [phone] Waiting for placement Admission and Anticipated Discharge Date Admission Date: November 07, 2021 Subjective Pt was seen and examined for follow up of UTI Lying in bed with no acute distress He thought he saw blood in his urine, but there was no evidence of blood Denies any chest pain, palpitation, dizziness and SOB Review of Systems Review of Systems: All systems reviewed & are unremarkable except as noted in Subjective Physical Exam Physical Exam: General- No acute distress Head- atraumatic Eyes- PERRL, EOMI, ENT- oropharynx clear Neck- supple, no JVD Lungs- Diminished Heart- regular rhythm; no murmur Abdomen- normal bowel sounds, soft, nontender Extremities- no calf tenderness, Right knee pain, chronic venous stasis, bilateral lower extremity edema Neuro- alert, oriented x 3; PERRL, EOMI; no facial palsy; no dysarthria Skin- warm & dry Results & Data Results & Data ([facility]) Vital Signs (Past 12 Hours) Vital Signs Temp Pulse Pulse Resp BP Pulse Ox Pulse Ox 11/10/21 23:12 36.7 C 67 18 132/66 94 11/10/21 19:28 36.8 C 80 18 130/68 92 11/10/21 16:00 36.7 C 98 H 18 127/59 L 100 11/10/21 15:40 60 11/10/21 12:52 36.7 C 98 H 16 133/69 99 11/10/21 12:00 98 (1) Sepsis Sepsis acute organ dysfunction status: without acute organ dysfunction Sepsis type: sepsis due to unspecified organism Qualified Code(s): A41.9 - Sepsis, unspecified organism
[2021-11-11] MEDS: HEPARIN SOD 5,000 UNIT/0.5 ML VIAL SQ SCH ×2 (05:23→14:44)
[2021-11-11 08:15] LABS: BUN Creatinine Ratio 23.8 (10-20); Calcium 9.1 mg/dl (8.5-10.1); Creatinine Clr Calc Pharmacy 58.6 ml/min; Est GFR (African American) 60.7 ml/min; Est GFR (Non-African American) 52.4 ml/min
[2021-11-11] MEDS: ASCORBIC ACID 500 MG TAB PO SCH (08:30)
[2021-11-11] MEDS: allopurinoL 300 MG TAB PO SCH (08:30)
[2021-11-11] MEDS: OMEGA-3 (PURIFIED FISH OIL) 1 GM CAP PO SCH (08:31)
[2021-11-11] MEDS: CARBIDOPA/LEVODOPA 25/100MG TAB PO SCH (08:31)
[2021-11-11] MEDS: ASPIRIN 81 MG ECTAB PO SCH (08:31)
[2021-11-11] MEDS: CITALOPRAM 20 MG TAB PO SCH (08:31)
[2021-11-11] MEDS: PANTOprazole 40 MG TAB PO SCH (08:32)
[2021-11-11] MEDS: SPIRONOLACTONE 12.5 MG TAB PO SCH (08:32)
[2021-11-11] MEDS: MULTIVITAMIN TAB PO SCH (08:32)
[2021-11-11] MEDS: GABAPENTIN 100 MG CAP PO SCH (08:32)
[2021-11-11] MEDS: INSULIN GLARGINE SOLOSTAR 100 UNITS/ML 3 ML PEN SC SCH (08:33)
[2021-11-11] MEDS: TORSEMIDE 20 MG TAB PO SCH (08:33)
[2021-11-11] MEDS: INSULIN ASPART PER UNIT SC SCH ×2 (08:36→12:21)
[2021-11-11] MEDS ORDERED: cephALEXin 500 MG CAP PO SCH (11:00)
--- NOTE | 2021-11-11 11:15 | Hospitalist Progress Note ---
Date of Service November 11, 2021 Assessment & Plan (1) Sepsis: (2) Acute UTI: (3) Encephalopathy: (4) Fall: (5) Parkinsons: (6) (HFpEF) heart failure with preserved ejection fraction: (7) Type 2 diabetes mellitus: (8) Chronic back pain: (9) History of prostate cancer: (10) CKD (chronic kidney disease), stage III: Plan: Pt is a 81 y/o M with hx of IDDM, Parkinsons disease on Sinemet, HLD, CKD III with anemia, HTN, Depression, Lumbar DDD, on chronic pain medication, Hepatic steatosis, HFpEF, Prostate Ca s/p Prostate Seed implantation, hearing loss, ambulatory dysfunction admitted for Urosepsis and fall. Urosepsis with metabolic encephalopathy: Met sepsis criteria on admission with elevating tachycardia, elevated WBC, lactic acid and procalcitonin on admission Urine cx grew gram negative bacilli - Klebsiella which is pansensitive except ni trofurantoin IV Cefepime changed to Ceftriaxone Received IV ceftriaxone and there were changed to oral Keflex from today to continue for another 5 days Clinically stable and will be discharged to [facility] this afternoon Mechanical fall: hx of multiple falls with hx of Parkinsons disease at baseline pt walks with walker CT head, CT spine, pelvic xray and CXR: no acute finding PT/OT evaluation completed-he will be going back to [facility] to continue with the physical therapy Fall precaution Waiting for placement to rehab to [facility] Elevated T bili and LFT Possible related to the acute illness Liver enzymes normalized with AST 38, ALT 29 Stable HFrEF: No sign of volume overload Continue Torsemide and spironolactone Parkinsons disease: continue Sinemet No acute symptoms IDDM: Hba1c pending continue home lantus units Continue to hold metformin and continue jardiance continue monitor BS CKD III Creatinine on admission 1.7, baseline Cr 1.4-1.5 Creatinine 1.4 today Continue monitor BMP -creatinine remains stable at 1.26 as of 11/11/2021 Chronic pain on narcotic: continue home gabapentin, hydrocodone Gout/Depression/BPH/Hx of Prostate Ca: continue home meds DVT PPx: Heparin Code Status: FULL CODE Emergency Contact: Maria Dolores-friend [phone] Will [address] discharged to [facility] this afternoon Admission and Anticipated Discharge Date Admission Date: November 07, 2021 Subjective 11/11/2021 Patient was seen and examined in telemetry unit He has been doing much better today and feels a little drowsy Denies any significant symptoms He is ready to be discharged this afternoon Review of Systems Review of Systems: All systems reviewed and are unremarkable except as noted below Neurologic: Generally weak and lethargic Physical Exam Physical Exam: Lying in bed comfortably Constitutional: well developed, well nourished and + obese; not ill appearing Eyes: PERRL, conjunctivae normal, anicteric sclerae ENMT: external ear and nose normal, oropharynx normal Neck: trachea midline, no thyromegaly Respiratory: no respiratory distress Auscultation: + diminished lung sounds; no crackles and no wheezes Cardiovascular: Rate/Rhythm: regular rate and regular rhythm Extremities: no edema Gastrointestinal (Abdomen): Inspection/Auscultation: normal bowel sounds; abdomen not distended Percussion/Palpation: abdomen soft; abdomen nontender Musculoskeletal: No acute arthritis in any joint Neurologic: Alert, awake and oriented x3. Generally weak but no focal neurodeficit Lymphatic: no cervical or axillary lymphadenopathy Results & Data Results & Data ([facility]) Vital Signs (Past 12 Hours) Vital Signs Temp Pulse Pulse Resp BP BP Pulse Ox 11/11/21 07:19 36.4 C L 63 19 141/76 H 91 11/11/21 02:56 36.6 C 62 18 153/75 H 93 11/10/21 23:59 67 11/10/21 23:12 36.7 C 67 18 132/66 94 Laboratory Results [facility] 11/11/21 07:09 Sodium 134 L Potassium 4.0 Chloride 98 Carbon Dioxide 30 BUN 30 H Creatinine 1.26 Glucose 174 H Calcium 9.1 Medications Administered Current Inpatient Medications Acetaminophen (Acetaminophen 325 Mg Tab) 650 mg PO Q4H PRN PRN Reason: Pain or Fever Stop: 12/07/21 12:50 Hydrocodone Bitart/Acetaminophen (Hydrocodone/Acetaminophen 10/325 Tab) 1 tab PO TID PRN PRN Reason: Severe Pain (Scale Score 7-10) Stop: 11/21/21 12:55 Al Hydrox/Mg Hydrox/Simethicone (Aluminum/Magnesium Susp 30 Ml Udc) 15 ml PO Q4H PRN PRN Reason: Dyspepsia Stop: 12/07/21 12:50 Allopurinol (Allopurinol 300 Mg Tab) 300 mg PO QAM [facility] Stop: 12/08/21 08:59 Last Admin: 11/11/21 08:30 Dose: 300 mg Documented by: Ascorbic Acid (Ascorbic Acid 500 Mg Tab) 500 mg PO DAILY [facility] Stop: 12/08/21 08:59 Last Admin: 11/11/21 08:30 Dose: 500 mg Documented by: Aspirin (Aspirin 81 Mg Ectab) 81 mg PO DAILY [facility] Stop: 12/08/21 08:59 Last Admin: 11/11/21 08:31 Dose: 81 mg Documented by: Carbidopa/Levodopa (Carbidopa/Levodopa 25/100mg Tab) 1 tab PO BID [facility] Stop: 12/07/21 20:59 Last Admin: 11/11/21 08:31 Dose: 1 tab Documented by: Cephalexin HCl (Cephalexin 500 Mg Cap) 500 mg PO Q12 [facility]; Protocol Stop: 11/16/21 10:59 Citalopram Hydrobromide (Citalopram 20 Mg Tab) 20 mg PO DAILY [facility] Stop: 12/08/21 08:59 Last Admin: 11/11/21 08:31 Dose: 20 mg Documented by: Dextrose (Dextrose 50% 50 Ml Syringe) 25 - 50 ml IV UD PRN; Protocol PRN Reason: Hypoglycemia Protocol Stop: 12/07/21 12:50 Famotidine (Famotidine 20 Mg Tab) 20 mg PO HS [facility] Stop: 12/07/21 20:59 Last Admin: 11/10/21 20:03 Dose: 20 mg Documented by: Fish Oil (Colona-3 (Purified Fish Oil) 1 Gm Cap) 1 gm PO DAILY [facility] Stop: 12/08/21 08:59 Last Admin: 11/11/21 08:31 Dose: 1 gm Documented by: Gabapentin (Gabapentin 100 Mg Cap) 100 mg PO BID [facility] Stop: 12/07/21 20:59 Last Admin: 11/11/21 08:32 Dose: 100 mg Documented by: Glucagon (Glucagon For Inj 1 Mg Vial) 1 mg SQ UD PRN; Protocol PRN Reason: Hypoglycemia Protocol Stop: 12/07/21 12:50 Glucose (Glucose 10 Tabs/Tube) 4 - 8 tabs PO UD PRN; Protocol PRN Reason: Hypoglycemia Protocol Stop: 12/07/21 12:50 Glucose (Glucose 40% Gel 15 Gm Tube) 15 - 30 gm PO UD PRN; Protocol PRN Reason: Hypoglycemia Protocol Stop: 12/07/21 12:50 Heparin Sodium (Porcine) (Heparin Sod 5,000 Unit/0.5 Ml Vial) 5,000 units SQ Q8 [facility] Stop: 12/07/21 13:59 Last Admin: 11/11/21 05:23 Dose: 5,000 units Documented by: Insulin Aspart (Insulin Aspart Per Unit) 0 units SC ACHS [facility] Stop: 12/07/21 16:29 Last Admin: 11/11/21 08:36 Dose: 7 units Documented by: Insulin Glargine (Insulin Glargine Solostar 100 Units/Ml 3 Ml Pen) 0 - 40 units SC BID [facility] Stop: 12/07/21 20:59 Last Admin: 11/11/21 08:33 Dose: 20 units Documented by: Magnesium Hydroxide (Magnesium Hydroxide Susp 30 Ml Udc) 30 ml PO Q12H PRN PRN Reason: Constipation Stop: 12/07/21 12:50 Miscellaneous (Carbohydrates For Hypoglycemia ) 15 - 30 gm PO UD PRN PRN Reason: Hypoglycemia Protocol Stop: 12/07/21 12:50 Multivitamins (Multivitamin Tab) 1 tab PO DAILY [facility] Stop: 12/08/21 08:59 Last Admin: 11/11/21 08:32 Dose: 1 tab Documented by: Ondansetron HCl (Ondansetron Inj 2 Mg/Ml 2 Ml Vial) 4 mg IV Q6H PRN PRN Reason: Nausea Stop: 12/07/21 12:50 Last Admin: 11/08/21 06:06 Dose: 4 mg Documented by: Pantoprazole Sodium (Pantoprazole 40 Mg Tab) 40 mg PO DAILY [facility] Stop: 12/08/21 08:59 Last Admin: 11/11/21 08:32 Dose: 40 mg Documented by: Polyethylene Glycol (Polyethylene (Miralax) 17 Gm Pack) 17 gm PO DAILY PRN PRN Reason: Constipation Stop: 12/07/21 12:50 Pravastatin Sodium (Pravastatin Sod 20 Mg Tab) 20 mg PO HS [facility] Stop: 12/07/21 20:59 Last Admin: 11/10/21 20:03 Dose: 20 mg Documented by: Spironolactone (Spironolactone 12.5 Mg Tab) 12.5 mg PO DAILY [facility] Stop: 12/08/21 08:59 Last Admin: 11/11/21 08:32 Dose: 12.5 mg Documented by: Tamsulosin HCl (Tamsulosin Hcl 0.4 Mg Cap) 0.4 mg PO DAILY@1800 [facility] Stop: 12/07/21 17:59 Last Admin: 11/10/21 17:15 Dose: 0.4 mg Documented by: Torsemide (Torsemide 20 Mg Tab) 20 mg PO DAILY [facility] Stop: 12/09/21 08:59 Last Admin: 11/11/21 08:33 Dose: 20 mg Documented by: Torsemide (Torsemide 20 Mg Tab) 20 mg PO DAILY PRN PRN Reason: for weight gain >5 lbs Stop: 12/09/21 08:59 (1) Sepsis Sepsis acute organ dysfunction status: without acute organ dysfunction Sepsis type: sepsis due to unspecified organism Qualified Code(s): A41.9 - Sepsis, unspecified organism
--- NOTE | 2021-11-12 07:07 | Discharge Summary ---
Date of Service November 11, 2021 Admission HPI Per Admitting Provider Pt is a 81 y/o M with hx of IDDM, Parkinsons disease on Sinemet, HLD, CKD III with anemia, HTN, Depression, Lumbar DDD, on chronic pain medication, Hepatic steatosis, HFpEF, Prostate Ca s/p Prostate Seed implantation, hearing loss, ambulatory dysfunction with multiple falls brought in from home after a fall. Obtained information from pts friend (varsha) who pt lives with: pt returned from [facility] rehab 3 days ago. Today morning he had a mechanical fall therefore EMS was called. At baseline pt walks with walker. Home nurse comes once a week, otherwise pt gets help from Varsha and her with cooking, cleaning and medication. Pts brother lives close by as well. He does not have daily home health aid. At bedside: pt complained of abd pain, Nausea and b/l leg pain. Denied any SOB, CP or ZEPEDA. Admission Exam Per Admitting Provider Physical Exam: General:.appeared a little lethargic, obese pt HEENT:.Normocephalic and atraumatic, Normal Conjunctiva, EOMI, Sclera is non- icteric Lungs:.No signs of respiratory distress, CTA, no wheezing or crackles Heart:.Normal S1, S2, no murmur Abdominal:.obese abd, soft, diffuse mild TTP MSK:.b/l mild pitting edema of the LE Psych:AAOx2 (unable to recall the place) Principal Diagnosis Sepsis secondary to UTI, acute metabolic and colopathy, mechanical fall, CKD stage III, chronic pain on narcotic, diabetes mellitus on insulin Discharge Exam Lying in bed comfortably Constitutional well developed, well nourished and + obese; not ill appearing Eyes PERRL, conjunctivae normal, anicteric sclerae ENMT external ear and nose normal, oropharynx normal Neck trachea midline, no thyromegaly Respiratory no respiratory distress Auscultation: + diminished lung sounds; no crackles and no wheezes Cardiovascular Rate/Rhythm: regular rate and regular rhythm Extremities: no edema Gastrointestinal (Abdomen) Inspection/Auscultation: normal bowel sounds; abdomen not distended Percussion/Palpation: abdomen soft; abdomen nontender Lymphatic no cervical or axillary lymphadenopathy Discharge Data Allergies Allergy/AdvReac Type Severity Reaction Status Date / Time No Known Allergies Verified 10/26/21 03:07 Consultations 11/07/21 11:07 ED Decision to Admit Stat Ordered Studies 11/07/21 09:32 CT cervical spine wo con Stat CT head/brain wo con Stat Diabetes Follow up Diabetes Follow-up Needed for HgbA1c >9% Hospital Course (1) Sepsis: (2) Acute UTI: (3) Encephalopathy: (4) Fall: (5) Parkinsons: (6) (HFpEF) heart failure with preserved ejection fraction: (7) Type 2 diabetes mellitus: (8) Chronic back pain: (9) History of prostate cancer: (10) CKD (chronic kidney disease), stage III: Pt is a 81 y/o M with hx of IDDM, Parkinsons disease on Sinemet, HLD, CKD III with anemia, HTN, Depression, Lumbar DDD, on chronic pain medication, Hepatic steatosis, HFpEF, Prostate Ca s/p Prostate Seed implantation, hearing loss, ambulatory dysfunction admitted for Urosepsis and fall. Urosepsis with metabolic encephalopathy: Met sepsis criteria on admission with elevating tachycardia, elevated WBC, lactic acid and procalcitonin on admission Urine cx grew gram negative bacilli - Klebsiella which is pansensitive except nitrofurantoin IV Cefepime changed to Ceftriaxone Received IV ceftriaxone and there were changed to oral Keflex from today to continue for another 5 days Clinically stable and will be discharged to [facility] this afternoon Mechanical fall: hx of multiple falls with hx of Parkinsons disease at baseline pt walks with walker CT head, CT spine, pelvic xray and CXR: no acute finding PT/OT evaluation completed-he will be going back to [facility] to continue with the physical therapy Fall precaution Waiting for placement to rehab to [facility] Elevated T bili and LFT Possible related to the acute illness Liver enzymes normalized with AST 38, ALT 29 Stable HFrEF: No sign of volume overload Continue Torsemide and spironolactone Parkinsons disease: continue Sinemet No acute symptoms IDDM: Hba1c pending continue home lantus units Continue to hold metformin and continue jardiance continue monitor BS CKD III Creatinine on admission 1.7, baseline Cr 1.4-1.5 Creatinine 1.4 today Continue monitor BMP -creatinine remains stable at 1.26 as of 11/11/2021 Chronic pain on narcotic: continue home gabapentin, hydrocodone Gout/Depression/BPH/Hx of Prostate Ca: continue home meds DVT PPx: Heparin Code Status: FULL CODE Emergency Contact: Varsha-friend [phone] Will be discharged to [facility] this afternoon Total Time Total Time Spent Total Time Spent (In Minutes): 35 minutes Discharge Plan Discharge Items Patient Disposition: Transfer Inpatient Rehab Fac Reason For Visit: SEPSIS, PARMJIT, UTI Discharge Diagnosis: Sepsis secondary to UTI, acute metabolic and colopathy, mechanical fall, CKD stage III, chronic pain on narcotic, diabetes mellitus on insulin Condition on Discharge: Fair Activity: As commented below Activity Comment: Continue physical therapy Non-emergency contact: Primary Care Provider Call non-emergency contact if: you have any medication questions and your symptoms worsen Follow-up/Referrals: Ltaha Gómez, DO [Primary Care Provider] - (Please make an appointment with your PCP within 1 week following discharge from the facility) Diet: Carb Consistent or DM2, Heart Healthy and Low Sodium (2gm) Addtl Attending Provider Instructions: Please take extra precautions to avoid fall Take your medications as advised Keep appointments with your healthcare providers Pending Studies at Discharge: No Stand-Alone Forms: [facility] Skilled Items Patient informed of condition?: Yes DNR: No Discharge Level of Care: Acute rehab Communicable Disease: No Discharge Prognosis: Stable Lines: None Urinary Catheter: Yes Medications and DC Order Prescriptions: New cephalexin 500 mg Capsule 500 mg PO Q12 Qty: 10 RF: 0 Continued multivitamin Tablet 1 tab PO DAILY RF: 0 metformin 500 mg Tablet Extended Release 24 Hr 500 mg PO BIDM RF: 0 Trulicity 3 mg/0.5 mL Pen Injector 3 mg SUBCUT WK RF: 0 hydrocodone-acetaminophen 10-325 mg tablet 1 tab PO TID PRN (Reason: Severe Pain (Scale Score 7-10)) RF: 0 aspirin 81 mg Tablet,Delayed Release (Dr/Ec) 81 mg PO DAILY RF: 0 spironolactone 25 mg tablet 12.5 mg PO DAILY RF: 0 tamsulosin 0.4 mg capsule 0.4 mg PO DAILY@1800 RF: 0 potassium chloride 10 mEq tablet,ER particles/crystals 10 meq PO DAILY RF: 0 insulin glargine [Lantus Solostar U-100 Insulin] 100 unit/mL (3 mL) insulin pen 50 units subcut BID RF: 0 omega [id number]-fish oil 1,000 mg (120 mg-180 mg) Capsule 1 cap PO DAILY RF: 0 ascorbic acid (vitamin C) 500 mg Capsule 500 mg PO DAILY RF: 0 pantoprazole 40 mg tablet,delayed release (DR/EC) 40 mg PO DAILY RF: 0 allopurinol 300 mg tablet 300 mg PO QAM RF: 0 pravastatin 20 mg tablet 20 mg PO HS RF: 0 gabapentin 100 mg capsule 100 mg PO BID RF: 0 carbidopa-levodopa 25-100 mg tablet 1 tab PO BID RF: 0 torsemide 20 mg tablet 20 mg PO DAILY RF: 0 Jardiance 10 mg tablet 10 mg PO DAILY RF: 0 citalopram 20 mg tablet 20 mg PO DAILY RF: 0 famotidine 20 mg tablet 20 mg PO HS RF: 0 Discharge Orders: Discharge Order (Routine); Ordered 11/11/21 Ordered By: Reid Guillory Admission Data Admit Date/Time: 11/07/21 11:16 Attending Provider: Reid Guillory Admit Provider: Harvinder Jeong Primary Care Provider: Latha Gómez Other Providers: Harvinder Jeong ; [facility] ; Jesus Moses
== END 2021-11-11 15:24 | DRG 871 ==
LOC: ED 09:09 → EDINP 11:16 → SUATTDRO 11:16 → 2S 12:55
DX: Z85.46 Personal history of malignant neoplasm of prostate; I50.32 Chronic diastolic (congestive) heart failure; G89.29 Other chronic pain; N39.0 Urinary tract infection, site not specified; G93.41 Metabolic encephalopathy; I13.0 Hypertensive heart and chronic kidney disease with heart failure and stage 1 through stage 4 chronic kidney disease, or unspecified chronic kidney disease; Z92.3 Personal history of irradiation; B96.1 Klebsiella pneumoniae [K. pneumoniae] as the cause of diseases classified elsewhere; K21.9 Gastro-esophageal reflux disease without esophagitis; G20 Parkinson's disease; Z87.891 Personal history of nicotine dependence; Z79.4 Long term (current) use of insulin; A41.9 Sepsis, unspecified organism; N18.30 Chronic kidney disease, stage 3 unspecified; M10.9 Gout, unspecified; F32.A Depression, unspecified; Z79.84 Long term (current) use of oral hypoglycemic drugs

== ENCOUNTER 2022-03-29 13:19 | Inpatient (IN) ==
[2022-03-29] MEDS ORDERED: SODIUM CHLORIDE 0.9% 500 ML IV SCH (13:45)
--- NOTE | 2022-03-29 13:46 | Emergency Department Note ---
Impression & Plan Acute urinary retention, PARMJIT (acute kidney injury), Urinary tract infection, COVID-19 ED Provider Note NAME: RALPH HAQUE AGE: 81 SEX: M : 1940 ARRIVES VIA: Ambulance INFORMANT: Patient, the patient's brother ED PROVIDER(S): Kurtis Valadez DO CHIEF COMPLAINT: Difficulty urinating HPI: The patient is an 81-year-old male who presented to the emergency department for an evaluation of difficulty urinating. The patient states he has abdominal distention and urinary incontinence. He states this is new for him. He denies having any fever. He did note some hematuria. He notices no vomiting or chest pain. He notices no fevers. There was some history from the prehospital personnel that the patient lost his significant other recently. He has been very depressed about this. He states he does have some suicidal ideation but not currently. The patient denies taking any overdose of any medications. He denies any alcohol use recently. He denies having any trauma. The patient was not seen by his family doctor. ROS: See above HPI for pertinent positives & negatives. A total of 10 systems reviewed and were otherwise negative. PAST MEDICAL HISTORY: See Below PAST SURGICAL HISTORY: See Below FAMILY HISTORY: See Below SOCIAL HISTORY: See Below HOME MEDICATIONS: See Below ALLERGIES: See Below VITALS: See Below PHYSICAL EXAMINATION: GENERAL: Patient is awake alert in no acute distress patient is resting comfortably and showing no signs of anxiety EYES: The conjunctivae are clear. The pupils are round and reactive. EARS, NOSE, MOUTH AND THROAT: The nose is without any evidence of any deformity. Mucous membranes are moist. Tongue is midline. NECK: The neck is nontender and supple. RESPIRATORY: Normal respiratory effort is noted there is no evidence of wheezing rhonchi or rales CARDIOVASCULAR: Regular rate and rhythm noted there no murmurs rubs or gallops normal S1 normal S2. GASTROINTESTINAL: The abdomen is distended. There is no specific tenderness guarding rigidity but suprapubic fullness was appreciated. MUSCULOSKELETAL/EXTREMITIES: There is no evidence of gross deformity full range of motion is noted in the hips and shoulders. SKIN: Pedal edema was noted bilaterally. Skin was warm and dry. NEUROLOGIC: Patient is awake alert and oriented x3 strength is symmetric patellar reflexes are 2+ bilaterally PSYCH: Patient has a very flat affect. Currently he is denying any suicidal ideation. MEDICAL DECISION MAKING: The patient is an 81-year-old male who presented to the emergency department for an evaluation of urinary symptoms. The patient was found to be in overflow urinary tension with incontinence. The patient was treated with a catheter. He was reevaluated multiple times. I discussed the patient's laboratory and radiographic studies with him. Ultimately he was treated with IV antibiotics for presumed urinary tract infection. Given the patient's other findings I do feel he might be a good candidate for inpatient management. For that reason I discussed this case with the on-call [facility] hospitalist group. They have agreed to evaluate the patient in the emergency department for further management and disposition. The patient was also evaluated for possible depression and suicidal ideation. He did talk with our mental health delegate in the emergency department. No suicidal ideation or gesture was identified. Triage Nursing notes reviewed. Prior medical records reviewed Vital Signs: reviewed and remarkable for elevated blood pressure. Differential diagnosis: Testicular torsion, mass, infection, hernia, hydrocele, epididymitis, STI, trauma, intra-abdominal process, as well as other pathologies. ER treatment provided: See below Diagnostics interpreted by me: ECG: EKG was obtained in the emergency department. My interpretation is sinus rhythm at 70 bpm. There was no ectopy. There was no acute ST segment abnormalities noted. This was compared to a tracing from November 07, 2021. No changes were noted. Cardiac Monitoring: An order was placed for continuous cardiac monitoring. The monitor shows a rate of 74 bpm with sinus rhythm. Laboratory studies: As stated above and show below. Imaging studies: See below Consultation(s): none Past Med/Surg History Medical History (HFpEF) heart failure with preserved ejection fraction Chronic back pain Chronic diastolic heart failure CKD (chronic kidney disease), stage III Diaphragmatic hernia Diverticulitis GERD (gastroesophageal reflux disease) History of prostate cancer Hyperlipidemia Hypertension Narcotic dependence Parkinsons Prostate cancer "Prostate, adenocarcinoma, cristina 3 + 3, PSA 6.66, cT1c, group I TREATMENT: Prostate seed implant - Cesium 131 - 06/30/2011 - monotherapy alone, Lupron for 6 months prior to implantation." Type 2 diabetes mellitus Venous insufficiency Surgical History History of hip replacement History of knee replacement Status post hernia repair Family History Mother Stroke Social History Smoking Status: Former smoker Tobacco Type: Smokeless Tobacco (Dip or Chew) Second Hand Exposure: No; Hx Alcohol Use: Yes Alcohol type: beer Alcohol Intake Frequency Comment: history of daily use, recently quit Hx Substance Use: No Preferred Language: Algerian Communication Ability: Effective 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: No Beliefs That Will Affect Care: None marital status: / Current Living Situation: Alone current occupational status: retired How many Children do You have: 3 Feels Safe at Home: Yes Assistive Devices: Walker Allergies Allergies Allergy/AdvReac Type Severity Reaction Status Date / Time No Known Allergies Verified 10/26/21 03:07 Home Meds Home Medications Medication Instructions Recorded Confirmed ascorbic acid (vitamin C) 500 mg 500 mg PO DAILY 07/31/18 03/29/22 capsule aspirin 81 mg tablet,delayed 81 mg PO DAILY 07/31/18 03/29/22 release hydrocodone 10 mg-acetaminophen 1 tab PO TID PRN Severe Pain 07/31/18 03/29/22 325 mg tablet (Scale Score 7-10) insulin glargine 100 unit/mL (3 50 units subcut BID 07/31/18 03/29/22 mL) subcutaneous pen (Lantus Solostar U-100 Insulin) omega 5-gix-eyi-fish oil 1,000 mg 1 cap PO DAILY 07/31/18 03/29/22 (120 mg-180 mg) capsule potassium chloride 10 mEq 10 meq PO DAILY 07/31/18 03/29/22 tablet,extended release(part/cryst) spironolactone 25 mg tablet 12.5 mg PO DAILY 07/31/18 03/29/22 tamsulosin 0.4 mg capsule 0.4 mg PO DAILY@1800 07/31/18 03/29/22 multivitamin 1 tab PO DAILY 07/05/20 03/29/22 dulaglutide 3 mg/0.5 mL 3 mg subcut WK 07/07/20 03/29/22 subcutaneous pen injector (Trulicity) metformin 500 mg tablet,extended 500 mg PO BIDM 07/07/20 03/29/22 release 24 hr allopurinol 300 mg tablet 300 mg PO QAM 10/26/21 03/29/22 carbidopa 25 mg-levodopa 100 mg 1 tab PO BID 10/26/21 03/29/22 tablet empagliflozin 10 mg tablet 10 mg PO DAILY 10/26/21 03/29/22 (Jardiance) gabapentin 100 mg capsule 100 mg PO BID 10/26/21 03/29/22 pantoprazole 40 mg tablet,delayed 40 mg PO DAILY 10/26/21 03/29/22 release pravastatin 20 mg tablet 20 mg PO HS 10/26/21 03/29/22 torsemide 20 mg tablet 20 mg PO DAILY 10/26/21 03/29/22 citalopram 20 mg tablet 20 mg PO DAILY 11/07/21 03/29/22 famotidine 20 mg tablet 20 mg PO HS 11/07/21 03/29/22 Results & Data (ED) Vital Signs Vital Signs - 24 hr 03/29/22 13:04 03/29/22 15:04 Temperature 37.1 C Temperature Source Oral Pulse Rate 75 Pulse Rate [Apical] 74 Respiratory Rate 18 17 Respiratory Effort / Characteristics Non-Labored Spontaneous Respiratory Depth Normal Respiratory Pattern Regular Blood Pressure 147/77 H Blood Pressure [Right Arm] 171/73 H Blood Pressure Mean 100 Blood Pressure Mean [Right Arm] 105 Pulse Oximetry 93 94 Oxygen Delivery Method Room Air Room Air Sepsis Recent Fever Within 48 Hours No Sepsis New/Unexplained Change in Mental Status No Sepsis Action Taken by Nursing No Action Required Home Medications Current Medication List: was personally reviewed by me Laboratory Data Attestation: I reviewed the patient's lab results. Result diagrams: 03/29/22 13:34 03/29/22 13:34 Lab Results 03/29/22 03/29/22 03/29/22 Range/Units 13:34 13:34 13:34 WBC 8.74 (4.8-10.8) K/ul RBC 4.49 L (4.63-6.08) M/uL Hgb 13.8 L (14.0-18.0) g/dl Hct 41.6 (40.1-51.0) % MCV 92.7 (80.0-100.0) fL MCH 30.7 (25.0-34.0) pg MCHC 33.2 (32.0-36.0) g/dL RDW Std Deviation 49.0 H (36.4-46.3) fL RDW Coeff of Faiza 14.5 (11.5-14.5) % Plt Count 213 (130-400) K/uL MPV 11.2 (9.4-12.4) fL Immature Gran % (Auto) 1.8 % Neut % (Auto) 69.7 % Lymph % (Auto) 16.4 % [place] % (Auto) 11.3 % Eos % (Auto) 0.3 % Baso % (Auto) 0.5 % Neut # (Auto) 6.09 (1.4-6.5) K/uL Lymph # (Auto) 1.43 (1.2-3.4) K/uL [place] # (Auto) 0.99 H (0.24-0.82) K/uL Eos # (Auto) 0.03 (0-0.50) K/uL Baso # (Auto) 0.04 (0-0.2) K/uL Immature Gran # (Auto) 0.16 H (0.00-0.02) K/uL PT 10.9 (9.0-12.0) Seconds INR 1.0 (0.9-1.1) APTT 30.0 (21.0-31.0) Seconds PTT Ratio 1.1 Sodium 132 L (136-145) mmol/L Potassium 4.6 (3.5-5.1) mmol/L Chloride 95 L (98-107) mmol/L Carbon Dioxide 29 (21-32) mmol/L Anion Gap 8 (3-11) BUN 36 H (6-23) mg/dl Creatinine 1.78 H (0.6-1.4) mg/dl Est Cr Clr Drug Dosing 41.7 ml/min Est GFR ( Amer) 40.0 ml/min Est GFR (Non-Af Amer) 34.5 ml/min BUN/Creatinine Ratio 20.2 H (10-20) Glucose 213 H (70-99(Fasting)) mg/dl Calcium 9.7 (8.5-10.1) mg/dl Magnesium 2.2 (1.7-2.4) mg/dl Total Bilirubin 1.0 (0.2-1.0) mg/dl AST 79 H (13-39) U/L ALT 65 H (7-52) U/L Alkaline Phosphatase 152 H (34-104) U/L Total Creatine Kinase 51 (30-223) U/L Total Protein 7.7 (6.0-8.3) gm/dl Albumin 4.0 (3.4-5.0) gm/dl Globulin 3.7 (2.5-4.0) gm/dl Albumin/Globulin Ratio 1.1 (0.9-2) Lipase 21 (11-82) U/L Urine Color Urine Appearance (Clear) Urine pH (4.5-7.5) Ur Specific [place] (1.000-1.030) Urine Protein (Negative) Urine Glucose (UA) (Negative) Urine Ketones (Negative) Urine Blood (Negative) Urine Nitrite (Negative) Urine Bilirubin (Negative) Urine Urobilinogen (Negative) Ur Leukocyte Esterase (Negative) Urine WBC (Auto) (0-5) /hpf Urine RBC (Auto) (0-4) /hpf U Hyaline Cast (Auto) (0-5) /lpf U Epithel Cells (Auto) (0-5) /lpf Urine Bacteria (Auto) (Negative) Salicylates (3.0-30) mg/dl Urine Opiates Screen (Neg) Ur Methadone, Qual (Neg) Acetaminophen (10-30) ug/ml Urine Barbiturates (Neg) Ur Phencyclidine (PCP) (Neg) U Amphetamin/Meth Scrn (Neg) MDMA (Ecstasy) Screen (Neg) U Benzodiazepines Scrn (Neg) Ur Cocaine Metabolite (Neg) U Marijuana (THC) Screen (Neg) Ethyl Alcohol mg/dL (<10.0) mg/dl SARS-CoV-2, RNA, NAAT (NEGATIVE) 03/29/22 03/29/22 03/29/22 Range/Units 14:11 14:11 14:22 WBC (4.8-10.8) K/ul RBC (4.63-6.08) M/uL Hgb (14.0-18.0) g/dl Hct (40.1-51.0) % MCV (80.0-100.0) fL MCH (25.0-34.0) pg MCHC (32.0-36.0) g/dL RDW Std Deviation (36.4-46.3) fL RDW Coeff of Faiza (11.5-14.5) % Plt Count (130-400) K/uL MPV (9.4-12.4) fL Immature Gran % (Auto) % Neut % (Auto) % Lymph % (Auto) % [place] % (Auto) % Eos % (Auto) % Baso % (Auto) % Neut # (Auto) (1.4-6.5) K/uL Lymph # (Auto) (1.2-3.4) K/uL [place] # (Auto) (0.24-0.82) K/uL Eos # (Auto) (0-0.50) K/uL Baso # (Auto) (0-0.2) K/uL Immature Gran # (Auto) (0.00-0.02) K/uL PT (9.0-12.0) Seconds INR (0.9-1.1) APTT (21.0-31.0) Seconds PTT Ratio Sodium (136-145) mmol/L Potassium (3.5-5.1) mmol/L Chloride (98-107) mmol/L Carbon Dioxide (21-32) mmol/L Anion Gap (3-11) BUN (6-23) mg/dl Creatinine (0.6-1.4) mg/dl Est Cr Clr Drug Dosing ml/min Est GFR ( Amer) ml/min Est GFR (Non-Af Amer) ml/min BUN/Creatinine Ratio (10-20) Glucose (70-99(Fasting)) mg/dl Calcium (8.5-10.1) mg/dl Magnesium (1.7-2.4) mg/dl Total Bilirubin (0.2-1.0) mg/dl AST (13-39) U/L ALT (7-52) U/L Alkaline Phosphatase (34-104) U/L Total Creatine Kinase (30-223) U/L Total Protein (6.0-8.3) gm/dl Albumin (3.4-5.0) gm/dl Globulin (2.5-4.0) gm/dl Albumin/Globulin Ratio (0.9-2) Lipase (11-82) U/L Urine Color Yellow Urine Appearance Turbid A (Clear) Urine pH 6.0 (4.5-7.5) Ur Specific [place] 1.020 (1.000-1.030) Urine Protein Trace H (Negative) Urine Glucose (UA) 3+ H (Negative) Urine Ketones Negative (Negative) Urine Blood 2+ H (Negative) Urine Nitrite Negative (Negative) Urine Bilirubin Negative (Negative) Urine Urobilinogen Negative (Negative) Ur Leukocyte Esterase 3+ H (Negative) Urine WBC (Auto) >30 H (0-5) /hpf Urine RBC (Auto) 5-10 H (0-4) /hpf U Hyaline Cast (Auto) 0 (0-5) /lpf U Epithel Cells (Auto) 10-20 H (0-5) /lpf Urine Bacteria (Auto) 4+ H (Negative) Salicylates < 3.0 L (3.0-30) mg/dl Urine Opiates Screen (Neg) Ur Methadone, Qual (Neg) Acetaminophen < 3 L (10-30) ug/ml Urine Barbiturates (Neg) Ur Phencyclidine (PCP) (Neg) U Amphetamin/Meth Scrn (Neg) MDMA (Ecstasy) Screen (Neg) U Benzodiazepines Scrn (Neg) Ur Cocaine Metabolite (Neg) U Marijuana (THC) Screen (Neg) Ethyl Alcohol mg/dL < 10.0 (<10.0) mg/dl SARS-CoV-2, RNA, NAAT (NEGATIVE) 03/29/22 03/29/22 Range/Units 14:22 14:27 WBC (4.8-10.8) K/ul RBC (4.63-6.08) M/uL Hgb (14.0-18.0) g/dl Hct (40.1-51.0) % MCV (80.0-100.0) fL MCH (25.0-34.0) pg MCHC (32.0-36.0) g/dL RDW Std Deviation (36.4-46.3) fL RDW Coeff of Faiza (11.5-14.5) % Plt Count (130-400) K/uL MPV (9.4-12.4) fL Immature Gran % (Auto) % Neut % (Auto) % Lymph % (Auto) % [place] % (Auto) % Eos % (Auto) % Baso % (Auto) % Neut # (Auto) (1.4-6.5) K/uL Lymph # (Auto) (1.2-3.4) K/uL [place] # (Auto) (0.24-0.82) K/uL Eos # (Auto) (0-0.50) K/uL Baso # (Auto) (0-0.2) K/uL Immature Gran # (Auto) (0.00-0.02) K/uL PT (9.0-12.0) Seconds INR (0.9-1.1) APTT (21.0-31.0) Seconds PTT Ratio Sodium (136-145) mmol/L Potassium (3.5-5.1) mmol/L Chloride (98-107) mmol/L Carbon Dioxide (21-32) mmol/L Anion Gap (3-11) BUN (6-23) mg/dl Creatinine (0.6-1.4) mg/dl Est Cr Clr Drug Dosing ml/min Est GFR ( Amer) ml/min Est GFR (Non-Af Amer) ml/min BUN/Creatinine Ratio (10-20) Glucose (70-99(Fasting)) mg/dl Calcium (8.5-10.1) mg/dl Magnesium (1.7-2.4) mg/dl Total Bilirubin (0.2-1.0) mg/dl AST (13-39) U/L ALT (7-52) U/L Alkaline Phosphatase (34-104) U/L Total Creatine Kinase (30-223) U/L Total Protein (6.0-8.3) gm/dl Albumin (3.4-5.0) gm/dl Globulin (2.5-4.0) gm/dl Albumin/Globulin Ratio (0.9-2) Lipase (11-82) U/L Urine Color Urine Appearance (Clear) Urine pH (4.5-7.5) Ur Specific [place] (1.000-1.030) Urine Protein (Negative) Urine Glucose (UA) (Negative) Urine Ketones (Negative) Urine Blood (Negative) Urine Nitrite (Negative) Urine Bilirubin (Negative) Urine Urobilinogen (Negative) Ur Leukocyte Esterase (Negative) Urine WBC (Auto) (0-5) /hpf Urine RBC (Auto) (0-4) /hpf U Hyaline Cast (Auto) (0-5) /lpf U Epithel Cells (Auto) (0-5) /lpf Urine Bacteria (Auto) (Negative) Salicylates (3.0-30) mg/dl Urine Opiates Screen Pos H (Neg) Ur Methadone, Qual Neg (Neg) Acetaminophen (10-30) ug/ml Urine Barbiturates Neg (Neg) Ur Phencyclidine (PCP) Neg (Neg) U Amphetamin/Meth Scrn Neg (Neg) MDMA (Ecstasy) Screen Neg (Neg) U Benzodiazepines Scrn Neg (Neg) Ur Cocaine Metabolite Neg (Neg) U Marijuana (THC) Screen Neg (Neg) Ethyl Alcohol mg/dL (<10.0) mg/dl SARS-CoV-2, RNA, NAAT POSITIVE A* (NEGATIVE) Administered Medications Discontinued Medications Sodium Chloride (Nss) 500 mls @ 999 mls/hr IV .Q31M VAISHALI Stop: 03/29/22 14:15 Last Infusion: 03/29/22 15:23 Dose: 0 mls/hr Documented By: Admin: 03/29/22 14:52 Dose: 999 mls/hr Documented By: SUNIL Ceftriaxone Sodium (Rocephin) 2,000 mg in 70 mls @ 140 mls/hr IV NOW STA Stop: 03/29/22 15:43 Last Admin: 03/29/22 15:28 Dose: 140 mls/hr Documented By: SUNIL Imaging Data Radiologist's Impression: Chest X-Ray 03/29/22 13:38 XR chest 1V portable HISTORY: medical clearance COMPARISON: Chest 11/07/2021. FINDINGS: A few bibasilar linear densities consistent with subsegmental atelectasis. Otherwise, the lungs are clear. The cardiac silhouette remains borderline enlarged. No pleural effusions. No pneumothorax. Degenerative changes within the shoulders. Smooth lobular left lateral density is likely due to overlapping soft tissues. IMPRESSION: No significant change compared to the prior study. No acute process. ACT 112: Negative or not required by law. Electronically signed by: Fernando Kirkpatrick M.D. 03/29/2022 2:05 PM Discharge Plan Visit Data Chief Complaint: Urinary Symptoms ED Provider: Kurtis Valadez Discharge Problem: Acute urinary retention, PARMJIT (acute kidney injury), Urinary tract infection, COVID-19 Patient Disposition: Being Evaluated by Hospitalist Forms Stand Alone Forms: [facility] Prescriptions Prescriptions: No Action multivitamin Tablet 1 tab PO DAILY metformin 500 mg Tablet Extended Release 24 Hr 500 mg PO BIDM Trulicity 3 mg/0.5 mL Pen Injector 3 mg SUBCUT WK hydrocodone-acetaminophen 10-325 mg tablet 1 tab PO TID PRN (Reason: Severe Pain (Scale Score 7-10)) Rx Instructions: pain 6-10 aspirin 81 mg Tablet,Delayed Release (Dr/Ec) 81 mg PO DAILY spironolactone 25 mg tablet 12.5 mg PO DAILY tamsulosin 0.4 mg capsule 0.4 mg PO DAILY@1800 potassium chloride 10 mEq tablet,ER particles/crystals 10 meq PO DAILY insulin glargine [Lantus Solostar U-100 Insulin] 100 unit/mL (3 mL) insulin pen 50 units subcut BID Rx Instructions: UNSURE IF PT IS TAKING THIS MEDICATION, UNABLE TO VERIFY. omega 0-tue-kdh-fish oil 1,000 mg (120 mg-180 mg) Capsule 1 cap PO DAILY ascorbic acid (vitamin C) 500 mg Capsule 500 mg PO DAILY pantoprazole 40 mg tablet,delayed release (DR/EC) 40 mg PO DAILY allopurinol 300 mg tablet 300 mg PO QAM pravastatin 20 mg tablet 20 mg PO HS gabapentin 100 mg capsule 100 mg PO BID carbidopa-levodopa 25-100 mg tablet 1 tab PO BID torsemide 20 mg tablet 20 mg PO DAILY Rx Instructions: MAY TAKE ADDITIONAL DOSE IF WT GAIN > 5 LBS. Jardiance 10 mg tablet 10 mg PO DAILY citalopram 20 mg tablet 20 mg PO DAILY famotidine 20 mg tablet 20 mg PO HS Referrals Referrals: Latha Gómez DO [Primary Care Provider] -
[2022-03-29 14:00] LABS: Basophils # (auto) 0.04 K/uL (0-0.2); Basophils % (auto) 0.5 %; Eosinophils # (auto) 0.03 K/uL (0-0.50); Eosinophils % (auto) 0.3 %; Hematocrit (blood only) 41.6 % (40.1-51.0); Hemoglobin 13.8 g/dl (14.0-18.0); Immature Granulocytes # (auto) 0.16 K/uL (0.00-0.02); Immature Granulocytes % (auto) 1.8 %; Lymphocytes # (auto) 1.43 K/uL (1.2-3.4); Lymphocytes % (auto) 16.4 %; Mean Corpuscular Hemoglobin 30.7 pg (25.0-34.0); Mean Corpuscular Hgb Conc 33.2 g/dL (32.0-36.0); Mean Corpuscular Volume 92.7 fL (80.0-100.0); Mean Platelet Volume 11.2 fL (9.4-12.4); Monocytes # (auto) 0.99 K/uL (0.24-0.82); Monocytes % (auto) 11.3 %; Neutrophils # (auto) 6.09 K/uL (1.4-6.5); Neutrophils % (auto) 69.7 %; Platelet Count 213 K/uL (130-400); RDW Coefficient of Variation 14.5 % (11.5-14.5); Red Blood Count 4.49 M/uL (4.63-6.08); White Blood Count 8.74 K/ul (4.8-10.8)
[2022-03-29 14:04] LABS: Partial Thromboplastin Ratio 1.1; Prothrombin Time 10.9 Seconds (9.0-12.0)
--- NOTE | 2022-03-29 14:06 | XRay Report ---
XR chest 1V portable HISTORY: medical clearance COMPARISON: Chest 11/07/2021. FINDINGS: A few bibasilar linear densities consistent with subsegmental atelectasis. Otherwise, the l ungs are clear. The cardiac silhouette remains borderline enlarged. No pleural effusions. No pneumoth orax. Degenerative changes within the shoulders. Smooth lobular left lateral density is likely due to overlapping soft tissues. IMPRESSION: No significant change compared to the prior study. No acute process. ACT 112: Negative or not required by law. Electronically signed by: Fernando Kirkpatrick M.D. 03/29/2022 2:05 PM
[2022-03-29 14:15] LABS: Albumin Globulin Ratio 1.1 (0.9-2); BUN Creatinine Ratio 20.2 (10-20); Calcium 9.7 mg/dl (8.5-10.1); Creatinine Clr Calc Pharmacy 41.7 ml/min; Est GFR (Non-African American) 34.5 ml/min; Globulin 3.7 gm/dl (2.5-4.0); Magnesium 2.2 mg/dl (1.7-2.4); Potassium 4.6 mmol/L (3.5-5.1); Total Protein 7.7 gm/dl (6.0-8.3)
[2022-03-29 14:42] LABS: Appearance Urine Turbid (Clear); Bacteria Urine Automated 4+ (Negative); Bilirubin Urine Negative (Negative); Blood Urine 2+ (Negative); Cast Urine Automated 0 /lpf (0-5); Color Urine Yellow; Glucose Urine UA 3+ (Negative); Ketones Urine Negative (Negative); Leukocyte Esterase Urine 3+ (Negative); Nitrite Urine Negative (Negative); Protein Urine Trace (Negative); Urobilinogen Urine Negative (Negative); WBC Urine Automated >30 /hpf (0-5)
[2022-03-29 15:08] LABS: Acetaminophen < 3 ug/ml (10-30); Salicylate < 3.0 mg/dl (3.0-30)
[2022-03-29 15:11] LABS: Amphetamines+Metham, Urine Neg (Neg); Barbiturates, Urine Neg (Neg); Benzodiazepine, Urine Neg (Neg); Cocaine, Urine Neg (Neg); MDMA (Ecstacy), Urine Neg (Neg); Methadone, Urine Neg (Neg); Opiate, Urine Pos (Neg); Phencyclidine, Urine Neg (Neg)
[2022-03-29] MEDS ORDERED: cefTRIAXone SODIUM 2,000 MG/70 ML BAG IV STA (15:14)
[2022-03-29 16:08] LABS: Troponin I High Sensitivity 11.5 pg/ml (0-20)
--- NOTE | 2022-03-29 16:08 | Electrocardiogram Report ---
Test Reason : Blood Pressure : / mmHG Vent. Rate : 070 BPM Atrial Rate : 070 BPM P-R Int : 228 ms QRS Dur : 082 ms QT Int : 392 ms P-R-T Axes : 051 022 065 degrees QTc Int : 423 ms Sinus rhythm with sinus arrhythmia with 1st degree A-V block Otherwise normal ECG When compared with ECG of 07-NOV-2021 09:23, Vent. rate has decreased BY 41 BPM Criteria for Septal infarct are no longer Present Confirmed by Fahad Ratliff ([id number]) on 03/29/2022 4:08:23 PM Referred By: REFERRED SELF Confirmed By:Fahad Ratliff
--- NOTE | 2022-03-29 16:26 | History & Physical Report ---
Date of Service March 29, 2022 Assessment & Plan (1) Urinary tract infection: Plan: Urine culture pending - suspect cause of incontinence and retention - Admit to med tele - Stern placed in ED with 900 ml of urine return - will continue for now, consider urology evaluation - Continue empiric ceftriaxone started in the ED - Monitor for dehydration - received 500 ml IVF in ED, hold additional IVF for now unless unable to maintain oral intake (2) PARMJIT (acute kidney injury): Plan: Suspect due to #1 - Daily labs - baseline creatinine was 1.4-1.5 but appears to be slowly increasing over the last 4-6 months (3) Acute urinary retention: Plan: See plan for #1 (4) COVID-19: Plan: Symptomatic with cough but no hypoxia, no significant dyspnea - COVID isolation precautions (5) CKD (chronic kidney disease), stage III: (6) Type 2 diabetes mellitus: Plan: Last A1c on 02/24/22 9.4. Pt was on Trulicity but in the process of being changed to Ozempic due to backorder issues. Prior auth in process - Baseline insulin and sliding scale - Diabetic diet - Accuchecks (7) History of prostate cancer: (8) (HFpEF) heart failure with preserved ejection fraction: Plan: Holding diuretics in the setting of PARMJIT - will resume once renal function stabilizes (9) Parkinsons: Plan: - Continue Sinemet (10) Ambulatory dysfunction: Plan: - PT/OT evaluations (11) Depression: Plan: On citalopram as outpatient - suspect acute worsening of symptoms due to grief/trauma. Will monitor closely - denies suicidality at present. Plan Pt seen and reviewed with collaborating physician, Dr. Patrick. Plan of care discussed and as outlined above. DVT Prophylaxis: Lovenox Code Status: DNR/DNI per pt's brother Zuhair Matthewsradha Villanueva PA-C History of Present Illness Chief Complaint: Weakness, confusion Primary Care Provider: Ltaha Gómez DO This is an 81 y/o male with a PMH of Parkinson's disease, insulin-dependent DM, CKD3, depression, HTN, chronic pain on chronic narcotics, dyslipidemia, GERD, prostate cancer s/p TURP, GERD, venous insufficiency, and diastolic dysfunction who presented to the ED today with increasing confusion and weakness. History from the patient is somewhat limited so additional history obtained from chart and from pt's brother, Zuhair, by phone. Pt apparently started with blood in the urine started 2-3 weeks ago - happened almost every time he urinates. Denies passing clots. Over the past few days, he has developed urgency with episodes of urinary incontinence. Associated abdominal distention but denies nausea, vomiting, abdominal pain. No fevers, chills, sweats. Hx of UTIs previously - similar symptoms but current episode not as severe. Also c/o cough for the last few days and associated fatigue. He has declined COVID vaccination. Today, he was having trouble ambulating so brought to ED for evaluation. Pt also notes the loss of a close friend last night - he lives with Mitchel and Maria Dolores Cardenas. Maria Dolores last night somewhat unexpectedly so pt reports feeling sad and overwhelmed today. He is unsure of his future living situation. Family notes that he has been more depressed and irritable for the last few weeks. At times, he has verbalized wanting to but no specific plan. In the ED, he denies being suicidal. Allergies Allergy/AdvReac Type Severity Reaction Status Date / Time No Known Allergies Verified 10/26/21 03:07 Home Medications Medication Instructions Recorded Confirmed Type aspirin 81 mg tablet,delayed 81 mg PO DAILY 07/31/18 03/29/22 History release hydrocodone 10 mg-acetaminophen 1 tab PO TID PRN Severe Pain 07/31/18 03/29/22 History 325 mg tablet (Scale Score 7-10) insulin glargine 100 unit/mL (3 65 units subcut BID 07/31/18 03/29/22 History mL) subcutaneous pen (Lantus Solostar U-100 Insulin) omega 3-zgd-pes-fish oil 1,000 mg 1 cap PO DAILY 07/31/18 03/29/22 History (120 mg-180 mg) capsule potassium chloride 10 mEq 10 meq PO DAILY 07/31/18 03/29/22 History tablet,extended release(part/cryst) spironolactone 25 mg tablet 12.5 mg PO DAILY 07/31/18 03/29/22 History tamsulosin 0.4 mg capsule 0.4 mg PO DAILY@1800 07/31/18 03/29/22 History metformin 500 mg tablet,extended 500 mg PO BIDM 07/07/20 03/29/22 History release 24 hr allopurinol 300 mg tablet 300 mg PO QAM 10/26/21 03/29/22 History carbidopa 25 mg-levodopa 100 mg 1 tab PO TID 10/26/21 03/29/22 History tablet empagliflozin 10 mg tablet 10 mg PO DAILY 10/26/21 03/29/22 History (Jardiance) gabapentin 100 mg capsule 100 mg PO BID 10/26/21 03/29/22 History pantoprazole 40 mg tablet,delayed 40 mg PO DAILY 10/26/21 03/29/22 History release pravastatin 20 mg tablet 20 mg PO HS 10/26/21 03/29/22 History torsemide 20 mg tablet 20 mg PO DAILY 10/26/21 03/29/22 History citalopram 20 mg tablet 20 mg PO DAILY 11/07/21 03/29/22 History famotidine 20 mg tablet 20 mg PO HS 11/07/21 03/29/22 History semaglutide 1 mg/dose (4 mg/3 mL) 1 mg subcut WK 03/29/22 03/29/22 History subcutaneous pen injector (Ozempic) Past Med/Surg History Medical History (Updated 03/29/22 @ 17:53 by Roxy Villanueva PA-C) (HFpEF) heart failure with preserved ejection fraction Chronic back pain Chronic diastolic heart failure CKD (chronic kidney disease), stage III Depression Diaphragmatic hernia Diverticulitis GERD (gastroesophageal reflux disease) History of prostate cancer Hyperlipidemia Hypertension Narcotic dependence Parkinsons Prostate cancer "Prostate, adenocarcinoma, cristina 3 + 3, PSA 6.66, cT1c, group I TREATMENT: Prostate seed implant - Cesium 131 - 06/30/2011 - monotherapy alone, Lupron for 6 months prior to implantation." Type 2 diabetes mellitus Venous insufficiency Surgical History History of elbow surgery ORIF of left elbow fracture in 1995 History of hip replacement History of knee replacement History of transurethral resection of prostate 2005 Status post hernia repair Family History Mother Stroke Social History Smoking Status: Former smoker Tobacco Type: Smokeless Tobacco (Dip or Chew) Second Hand Exposure: No; Hx Alcohol Use: Yes Alcohol type: beer Alcohol Intake Frequency Comment: history of daily use but now only occasional drink Hx Substance Use: No Preferred Language: Cook Islander Communication Ability: Effective [employer]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: No Beliefs That Will Affect Care: None marital status: / Current Living Situation: Other Current Living Situation Comment: with friends current occupational status: retired How many Children do You have: 3 Feels Safe at Home: Yes Safety Concerns: Feels Safe At This Time Assistive Devices: Walker Review of Systems Review of Systems: Limited due to lethargy - see HPI Physical Exam Constitutional: + obese and + lethargic (but arousable); no acute distress Eyes: + anicteric sclerae ENMT: external ear and nose normal, oropharynx normal Neck: trachea midline Respiratory: no respiratory distress and no labored breathing Auscultation: + diminished lung sounds; no rales, no rhonchi and no wheezes Cardiovascular: Rate/Rhythm: regular rate and regular rhythm Vessels: radial pulses present Extremities: no pedal edema Gastrointestinal (Abdomen): Inspection/Auscultation: normal bowel sounds; abdomen not distended Percussion/Palpation: abdomen soft; abdomen nontender Musculoskeletal: Head/Neck/Chest: normocephalic, head atraumatic and neck supple Skin: no jaundice Neurologic: moves all extremities; no focal motor deficits Speech / Cognition: + abnormal speech (slowed) and + abnormal cognition (slow responses to questions, at times difficulty answering) Psychiatric: Orientation: oriented x 3 Affect: + flat affect Results & Data Results & Data ([facility] [place]) Vital Signs (Past 12 Hours) Vital Signs Temp Pulse Pulse Resp BP BP Pulse Ox 03/29/22 15:04 74 17 171/73 H 94 03/29/22 13:04 37.1 C 75 18 147/77 H 93 O2 Del Method 03/29/22 15:04 Room Air 03/29/22 13:04 Room Air Laboratory Results Laboratory Results - last 24 hr 03/29/22 03/29/22 03/29/22 13:34 13:34 13:34 WBC 8.74 RBC 4.49 L Hgb 13.8 L Hct 41.6 MCV 92.7 MCH 30.7 MCHC 33.2 RDW Std Deviation 49.0 H RDW Coeff of Faiza 14.5 Plt Count 213 MPV 11.2 Immature Gran % (Auto) 1.8 Neut % (Auto) 69.7 Lymph % (Auto) 16.4 Buchanan % (Auto) 11.3 Eos % (Auto) 0.3 Baso % (Auto) 0.5 Neut # (Auto) 6.09 Lymph # (Auto) 1.43 Buchanan # (Auto) 0.99 H Eos # (Auto) 0.03 Baso # (Auto) 0.04 Immature Gran # (Auto) 0.16 H PT 10.9 INR 1.0 APTT 30.0 PTT Ratio 1.1 Sodium 132 L Potassium 4.6 Chloride 95 L Carbon Dioxide 29 Anion Gap 8 BUN 36 H Creatinine 1.78 H Est Cr Clr Drug Dosing 41.7 Est GFR ( Amer) 40.0 Est GFR (Non-Af Amer) 34.5 BUN/Creatinine Ratio 20.2 H Glucose 213 H Calcium 9.7 Magnesium 2.2 Total Bilirubin 1.0 AST 79 H ALT 65 H Alkaline Phosphatase 152 H Total Creatine Kinase 51 Troponin I High Sens 11.5 Total Protein 7.7 Albumin 4.0 Globulin 3.7 Albumin/Globulin Ratio 1.1 Lipase 21 Urine Color Urine Appearance Urine pH Ur Specific Sheldon Urine Protein Urine Glucose (UA) Urine Ketones Urine Blood Urine Nitrite Urine Bilirubin Urine Urobilinogen Ur Leukocyte Esterase Urine WBC (Auto) Urine RBC (Auto) U Hyaline Cast (Auto) U Epithel Cells (Auto) Urine Bacteria (Auto) Salicylates Urine Opiates Screen U Codeine Confrm GC/MS Ur Morphine (GC/MS) Ur Hydrocodone (GC/MS) Ur Norhydrocodone Ur Noroxycodone Urine Oxycodone (GC/MS) U Oxymorphone GC/MS Ur Methadone, Qual Ur Hydromorphone (GC/MS) Acetaminophen Urine Barbiturates Ur Phencyclidine (PCP) U Amphetamin/Meth Scrn MDMA (Ecstasy) Screen U Benzodiazepines Scrn Ur Cocaine Metabolite U Marijuana (THC) Screen Drug Screen Comment Ethyl Alcohol mg/dL SARS-CoV-2, RNA, NAAT 03/29/22 03/29/22 03/29/22 14:11 14:11 14:22 WBC RBC Hgb Hct MCV MCH MCHC RDW Std Deviation RDW Coeff of Faiza Plt Count MPV Immature Gran % (Auto) Neut % (Auto) Lymph % (Auto) Buchanan % (Auto) Eos % (Auto) Baso % (Auto) Neut # (Auto) Lymph # (Auto) Buchanan # (Auto) Eos # (Auto) Baso # (Auto) Immature Gran # (Auto) PT INR APTT PTT Ratio Sodium Potassium Chloride Carbon Dioxide Anion Gap BUN Creatinine Est Cr Clr Drug Dosing Est GFR ( Amer) Est GFR (Non-Af Amer) BUN/Creatinine Ratio Glucose Calcium Magnesium Total Bilirubin AST ALT Alkaline Phosphatase Total Creatine Kinase Troponin I High Sens Total Protein Albumin Globulin Albumin/Globulin Ratio Lipase Urine Color Yellow Urine Appearance Turbid A Urine pH 6.0 Ur Specific Sheldon 1.020 Urine Protein Trace H Urine Glucose (UA) 3+ H Urine Ketones Negative Urine Blood 2+ H Urine Nitrite Negative Urine Bilirubin Negative Urine Urobilinogen Negative Ur Leukocyte Esterase 3+ H Urine WBC (Auto) >30 H Urine RBC (Auto) 5-10 H U Hyaline Cast (Auto) 0 U Epithel Cells (Auto) 10-20 H Urine Bacteria (Auto) 4+ H Salicylates < 3.0 L Urine Opiates Screen U Codeine Confrm GC/MS Ur Morphine (GC/MS) Ur Hydrocodone (GC/MS) Ur Norhydrocodone Ur Noroxycodone Urine Oxycodone (GC/MS) U Oxymorphone GC/MS Ur Methadone, Qual Ur Hydromorphone (GC/MS) Acetaminophen < 3 L Urine Barbiturates Ur Phencyclidine (PCP) U Amphetamin/Meth Scrn MDMA (Ecstasy) Screen U Benzodiazepines Scrn Ur Cocaine Metabolite U Marijuana (THC) Screen Drug Screen Comment Ethyl Alcohol mg/dL < 10.0 SARS-CoV-2, RNA, NAAT 03/29/22 03/29/22 03/29/22 14:22 14:22 14:27 WBC RBC Hgb Hct MCV MCH MCHC RDW Std Deviation RDW Coeff of Faiza Plt Count MPV Immature Gran % (Auto) Neut % (Auto) Lymph % (Auto) Buchanan % (Auto) Eos % (Auto) Baso % (Auto) Neut # (Auto) Lymph # (Auto) Buchanan # (Auto) Eos # (Auto) Baso # (Auto) Immature Gran # (Auto) PT INR APTT PTT Ratio Sodium Potassium Chloride Carbon Dioxide Anion Gap BUN Creatinine Est Cr Clr Drug Dosing Est GFR ( Amer) Est GFR (Non-Af Amer) BUN/Creatinine Ratio Glucose Calcium Magnesium Total Bilirubin AST ALT Alkaline Phosphatase Total Creatine Kinase Troponin I High Sens Total Protein Albumin Globulin Albumin/Globulin Ratio Lipase Urine Color Urine Appearance Urine pH Ur Specific Sheldon Urine Protein Urine Glucose (UA) Urine Ketones Urine Blood Urine Nitrite Urine Bilirubin Urine Urobilinogen Ur Leukocyte Esterase Urine WBC (Auto) Urine RBC (Auto) U Hyaline Cast (Auto) U Epithel Cells (Auto) Urine Bacteria (Auto) Salicylates Urine Opiates Screen Pos H U Codeine Confrm GC/MS Pending Ur Morphine (GC/MS) Pending Ur Hydrocodone (GC/MS) Pending Ur Norhydrocodone Pending Ur Noroxycodone Pending Urine Oxycodone (GC/MS) Pending U Oxymorphone GC/MS Pending Ur Methadone, Qual Neg Ur Hydromorphone (GC/MS) Pending Acetaminophen Urine Barbiturates Neg Ur Phencyclidine (PCP) Neg U Amphetamin/Meth Scrn Neg MDMA (Ecstasy) Screen Neg U Benzodiazepines Scrn Neg Ur Cocaine Metabolite Neg U Marijuana (THC) Screen Neg Drug Screen Comment Pending Ethyl Alcohol mg/dL SARS-CoV-2, RNA, NAAT POSITIVE A* Diagnostic Findings Chest X-ray 03/29/22 - IMPRESSION: No significant change compared to the prior study. No acute process. Medications Administered Discontinued Medications Sodium Chloride (Nss) 500 mls @ 999 mls/hr IV .Q31M VAISHAIL Stop: 03/29/22 14:15 Last Infusion: 03/29/22 15:23 Dose: 0 mls/hr Documented By: Admin: 03/29/22 14:52 Dose: 999 mls/hr Documented By: SUNIL Ceftriaxone Sodium (Rocephin) 2,000 mg in 70 mls @ 140 mls/hr IV NOW STA Stop: 03/29/22 15:43 Last Infusion: 03/29/22 16:04 Dose: 0 mls/hr Documented By: Admin: 03/29/22 15:28 Dose: 140 mls/hr Documented By: SUNIL Supervising Physician Co-Signing Physician Notes I have seen and examined the patient and have discussed the case with the provider above. I agree with the assessment and plan as stated. 81 yo M presents with acute urinary retention and complicated UTI. COVID positive and minimal to no symptoms. Poor historian but states that he feels better since the stern placement although denies that he had any cecily pain or discomfort. He is certainly grieving the loss of his friend who recently passed which appears to be normal bereavement. Lungs are CTAB, cardiac exam is unremarkable. He is answering questions appropriately. Cont plan stated above. DO Darnell (1) Urinary tract infection Hematuria presence: without hematuria Urinary tract infection type: site unspecified Qualified Code(s): N39.0 - Urinary tract infection, site not specified
[2022-03-29] MEDS ORDERED: HYDROCODONE/ACETAMOPHEN 5/325MG TAB PO ONE (18:05)
[2022-03-29] MEDS ORDERED: GLUCAGON FOR INJ 1 MG VIAL SQ PRN (19:00)
[2022-03-29] MEDS ORDERED: GLUCOSE 10 TAB/TUBE PO PRN (19:00)
[2022-03-29] MEDS ORDERED: CARBOHYDRATES FOR HYPOGLYCEMIA PO PRN (19:00)
[2022-03-29] MEDS ORDERED: GLUCOSE 40% GEL 15 GM TUBE PO PRN (19:00)
[2022-03-29] MEDS ORDERED: DEXTROSE 50% 50 ML SYRINGE IV PRN (19:00)
[2022-03-29] MEDS: INSULIN ASPART PER UNIT SC SCH (19:37)
[2022-03-29] MEDS: LANTUS PER UNIT CHARGE SQ SCH (20:41)
[2022-03-29] MEDS: FAMOTIDINE 20 MG TAB PO SCH (20:46)
[2022-03-29] MEDS: CARBIDOPA/LEVODOPA 25/100MG TAB PO SCH (20:46)
[2022-03-29] MEDS: TAMSULOSIN HCL 0.4 MG CAP PO SCH (20:46)
[2022-03-29] MEDS: PRAVASTATIN SOD 20 MG TAB PO SCH (20:46)
[2022-03-29] MEDS: GABAPENTIN 100 MG CAP PO SCH (20:46)
[2022-03-30 07:00] LABS: Basophils # (auto) 0.04 K/uL (0-0.2); Basophils % (auto) 0.4 %; Eosinophils # (auto) 0.02 K/uL (0-0.50); Eosinophils % (auto) 0.2 %; Hemoglobin 13.9 g/dl (14.0-18.0); Immature Granulocytes # (auto) 0.12 K/uL (0.00-0.02); Immature Granulocytes % (auto) 1.3 %; Lymphocytes % (auto) 17.9 %; Mean Corpuscular Hemoglobin 30.5 pg (25.0-34.0); Mean Corpuscular Hgb Conc 33.1 g/dL (32.0-36.0); Mean Corpuscular Volume 92.1 fL (80.0-100.0); Mean Platelet Volume 11.2 fL (9.4-12.4); Monocytes # (auto) 0.97 K/uL (0.24-0.82); Monocytes % (auto) 10.9 %; Neutrophils # (auto) 6.18 K/uL (1.4-6.5); Neutrophils % (auto) 69.3 %; Platelet Count 185 K/uL (130-400); RDW Coefficient of Variation 14.4 % (11.5-14.5); Red Blood Count 4.56 M/uL (4.63-6.08); White Blood Count 8.93 K/ul (4.8-10.8)
[2022-03-30 07:20] LABS: Albumin Level 3.9 gm/dl (3.4-5.0); BUN Creatinine Ratio 19.7 (10-20); Bilirubin Direct 0.2 mg/dl (0-0.2); Bilirubin,Total 0.8 mg/dl (0.2-1.0); Calcium 9.4 mg/dl (8.5-10.1); Creatinine Clr Calc Pharmacy 47.1 ml/min; Est GFR (African American) 46.6 ml/min; Est GFR (Non-African American) 40.2 ml/min; Potassium 4.3 mmol/L (3.5-5.1); Total Protein 7.3 gm/dl (6.0-8.3)
[2022-03-30] MEDS: LANTUS PER UNIT CHARGE SQ SCH ×2 (07:53→20:43)
[2022-03-30] MEDS: INSULIN ASPART PER UNIT SC SCH ×4 (07:53→20:42)
[2022-03-30] MEDS: CARBIDOPA/LEVODOPA 25/100MG TAB PO SCH ×3 (08:04→20:10)
[2022-03-30] MEDS: allopurinoL 300 MG TAB PO SCH (08:04)
[2022-03-30] MEDS: CITALOPRAM 20 MG TAB PO SCH (08:04)
[2022-03-30] MEDS: POTASSIUM CHLORIDE 10 MEQ TABCR PO SCH (08:04)
[2022-03-30] MEDS: GABAPENTIN 100 MG CAP PO SCH ×2 (08:04→20:10)
[2022-03-30] MEDS: ASPIRIN 81 MG ECTAB PO SCH (08:04)
[2022-03-30] MEDS: PANTOprazole 40 MG TAB PO SCH (08:05)
[2022-03-30] MEDS: ENOXAPARIN INJ 40 MG/0.4 ML SYR SQ SCH (08:05)
[2022-03-30] MEDS: HYDROcodone/ACETAMINOPHEN 10/325 TAB PO PRN ×2 (09:42→20:39)
[2022-03-30] MEDS ORDERED: REMDESIVIR 200 MG in SODIUM CHLORIDE 0.9% 210 ML IV STA (14:10)
--- NOTE | 2022-03-30 14:24 | Hospitalist Progress Note ---
Date of Service March 30, 2022 Assessment & Plan (1) Urinary tract infection: Plan: suspect cause of incontinence and retention Urine culture: Gram-negative bacilli Continue ceftriaxone IV day #2 Continue Fuentes catheter for now History of prostate CA Will consult urology service for episode of hematuria at home, also urinary retention (2) PARMJIT (acute kidney injury): Plan: Likely secondary to #1 On CKD stage III Baseline creatinine 1.2 Creatinine improving up to 1.5 from 1.7 (3) Acute urinary retention: Plan: See plan for #1 (4) COVID-19: Plan: No hypoxia Chest x-ray: No pneumonia Given patient's age, risk factors, offered remdesivir Risks and benefits explained, patient understanding and agreeable Start remdesivir day #1 Monitor BMP and LFTs Incentive spirometry ordered On Lovenox subcu for DVT prophylaxis (5) Type 2 diabetes mellitus: Plan: Last A1c on 02/24/22 9.4. Pt was on Trulicity but in the process of being changed to Ozempic due to backorder issues. Prior auth in process - Baseline insulin and sliding scale - Diabetic diet - Accuchecks -BSG 167, 186 (6) History of prostate cancer: (7) (HFpEF) heart failure with preserved ejection fraction: Plan: Holding diuretics in the setting of PARMJIT - will resume once renal function stabilizes (8) Parkinsons: Plan: - Continue Sinemet (9) Ambulatory dysfunction: Plan: - PT/OT evaluations (10) Depression: Plan: On citalopram as outpatient - suspect acute worsening of symptoms due to grief/trauma. Will monitor closely - denies suicidality at present. Plan DVT Prophylaxis: Lovenox Code Status: DNR/DNI per pt's brother Zuhair Merritt Disposition PT/OT evaluation in progress Patient lives with his friend Admission and Anticipated Discharge Date Admission Date: March 29, 2022 Subjective Follow-up for UTI, COVID-19 infection, etc. Seen resting in bed sitting up, comfortable, not in distress Just had physical therapy On room air Alert, oriented x3, answers all questions appropriate States he is having nausea through the day, somewhat improving now Positive BMs today Has dry cough, denies fevers or chills, chest pain No other symptoms Review of Systems Review of Systems: all noted and negative except for above Physical Exam Physical Exam: all noted and negative except for above Results & Data Results & Data ([facility]) Vital Signs (Past 12 Hours) Vital Signs Temp Pulse Pulse Resp BP Pulse Ox O2 Del Method 03/30/22 11:30 36.9 C 87 18 148/74 H 91 03/30/22 07:54 37.5 C 87 18 154/78 H 91 03/30/22 07:05 78 03/30/22 02:18 37.5 C 76 20 170/81 H 92 Room Air all noted and reviewed including below (1) Urinary tract infection Hematuria presence: without hematuria Urinary tract infection type: site unspecified Qualified Code(s): N39.0 - Urinary tract infection, site not specified
--- NOTE | 2022-03-30 14:57 | XRay Report ---
XR KUB/Abdomen 1 view CLINICAL HISTORY: nausea, r/o ileus TECHNIQUE: 1 view of the abdomen was obtained. Comparison: Comparison is made to abdomen radiograph 07/08/2020 FINDINGS: Lung bases are unremarkable. Degenerative changes are seen in the visualized skeleton. The bowel gas pattern is nonobstructive. A moderate amount of stool is noted within the large bowel. Prostate thera py changes are seen and there is a total left hip arthroplasty. IMPRESSION: Nonobstructive bowel gas pattern. ACT 112: Negative or not required by law. Electronically signed by: Fritz Weber M.D. 03/30/2022 2:55 PM
[2022-03-30] MEDS: TAMSULOSIN HCL 0.4 MG CAP PO SCH (17:05)
[2022-03-30] MEDS: cefTRIAXone SODIUM 2,000 MG in DEXTROSE 5% 50 ML IV SCH (17:35)
[2022-03-30] MEDS ORDERED: POLYETHYLENE (MIRALAX) 17 GM PACK PO ONE (18:28)
--- NOTE | 2022-03-30 19:40 | Urology Consultation ---
Date of Consultation March 30, 2022 Assessment & Plan (1) Acute urinary retention: Patient has been admitted on the hospitalist service. We recommend proceeding as follows: The cause of his urinary retention may be related to underlying urinary tract infection The patient has been started on antibiotics in form of Rocephin. Would recommend continuous antibiotic and further tailoring it based on urine culture results once available Recommend bladder rest with Fuentes catheter for a few days once his urinary tract infection has been treated consideration can be given to attempting a voiding trial Continue Flomax to help facilitate a voiding History of Present Illness Attending Physician: Egdar Carrillo MD History of Present Illness This is an 81-year-old male who was admitted to [facility] on 03/29/2022. The patient has some underlying confusion and therefore the historical information was limited. A large portion of the historical data was obtained from review of chart. The patient reportedly had hematuria approximately 2 to 3 weeks ago without passing any blood clots. The patient subsequently developed urinary urgency is with episodes of incontinence. There is reported some abdominal distention but no nausea or vomiting or abdominal pain. The patient also did not report any fevers or chills. Patient reportedly had history of urinary tract infections in the past with similar symptoms but just not as severe. The patient presented to the emergency department. Where he did have labs and imaging which I independent reviewed. A chest x-ray did not show any evidence of pneumonia. A KUB was performed that showed no evidence of small bowel obstruction. His most recent labs include a CBC today were white blood cell count was normal. His platelet count was also noted to be normal. Hemoglobin and hematocrit were 13.9 and 42.0. Chemistry profile showed sodium was 134 with a potassium of 4.3. BUN and creatinine today are 31 and 1.5. At time of admission his creatinine was 1.7. Review of records show his baseline runs anywhere from 1.2-1.7. A urinalysis was performed that did show turbid urine. The specimen was negative for nitrites but did show 3+ leukocyte Estrace and greater than 30 white blood cells per high-power field. There is also 4+ bacteria. The patient was tested for COVID the day of admission which was positive. A urine culture was sent the day of admission that did show gram- negative bacilli. Review of records does show the patient had a Klebsiella urinary tract infection of October of this year. There were no resistances to this organism except intermediate sensitivity to Macrobid. Since admission the patient has been started on Rocephin for antibacterial coverage concerning his urinary tract infection. The patient has had a Fuentes catheter placed with a large volume of urine initially retrieved. He has been initiated on Flomax. He is also been placed on remdesivir for history of COVID. At the time of my interview he was resting comfortably in bed and he was in no distress. Allergies Allergy/AdvReac Type Severity Reaction Status Date / Time No Known Allergies Verified 10/26/21 03:07 Home Medications Medication Instructions Recorded Confirmed Type aspirin 81 mg tablet,delayed 81 mg PO DAILY 07/31/18 03/29/22 History release hydrocodone 10 mg-acetaminophen 1 tab PO TID PRN Severe Pain 07/31/18 03/29/22 History 325 mg tablet (Scale Score 7-10) insulin glargine 100 unit/mL (3 65 units subcut BID 07/31/18 03/29/22 History mL) subcutaneous pen (Lantus Solostar U-100 Insulin) omega 3-tpv-aka-fish oil 1,000 mg 1 cap PO DAILY 07/31/18 03/29/22 History (120 mg-180 mg) capsule potassium chloride 10 mEq 10 meq PO DAILY 07/31/18 03/29/22 History tablet,extended release(part/cryst) spironolactone 25 mg tablet 12.5 mg PO DAILY 07/31/18 03/29/22 History tamsulosin 0.4 mg capsule 0.4 mg PO DAILY@1800 07/31/18 03/29/22 History metformin 500 mg tablet,extended 500 mg PO BIDM 07/07/20 03/29/22 History release 24 hr allopurinol 300 mg tablet 300 mg PO QAM 10/26/21 03/29/22 History carbidopa 25 mg-levodopa 100 mg 1 tab PO TID 10/26/21 03/29/22 History tablet empagliflozin 10 mg tablet 10 mg PO DAILY 10/26/21 03/29/22 History (Jardiance) gabapentin 100 mg capsule 100 mg PO BID 10/26/21 03/29/22 History pantoprazole 40 mg tablet,delayed 40 mg PO DAILY 10/26/21 03/29/22 History release pravastatin 20 mg tablet 20 mg PO HS 10/26/21 03/29/22 History torsemide 20 mg tablet 20 mg PO DAILY 10/26/21 03/29/22 History citalopram 20 mg tablet 20 mg PO DAILY 11/07/21 03/29/22 History famotidine 20 mg tablet 20 mg PO HS 11/07/21 03/29/22 History semaglutide 1 mg/dose (4 mg/3 mL) 1 mg subcut WK 03/29/22 03/29/22 History subcutaneous pen injector (Ozempic) Patient History Medical History (HFpEF) heart failure with preserved ejection fraction Chronic back pain Chronic diastolic heart failure CKD (chronic kidney disease), stage III Depression Diaphragmatic hernia Diverticulitis GERD (gastroesophageal reflux disease) History of prostate cancer Hyperlipidemia Hypertension Narcotic dependence Parkinsons Prostate cancer "Prostate, adenocarcinoma, cristina 3 + 3, 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, cT1c, group I TREATMENT: Prostate seed implant - Cesium 131 - 06/30/2011 - monotherapy alone, Lupron for 6 months prior to implantation." Type 2 diabetes mellitus Venous insufficiency Surgical History History of elbow surgery ORIF of left elbow fracture in 1995 History of hip replacement History of knee replacement History of transurethral resection of prostate 2005 Status post hernia repair Family History Mother Stroke Social History Smoking Status: Former smoker Tobacco Type: Smokeless Tobacco (Dip or Chew) Second Hand Exposure: No; Hx Alcohol Use: Yes Alcohol type: beer Alcohol Intake Frequency Comment: history of daily use but now only occasional drink Hx Substance Use: No Preferred Language: [place] Citizen Communication Ability: Effective Shed Hand Required: No Beliefs That Will Affect Care: None marital status: / Current Living Situation: Other Current Living Situation Comment: with friends current occupational status: retired How many Children do You have: 3 Feels Safe at Home: Yes Safety Concerns: Feels Safe At This Time Assistive Devices: Hospital Bed and Walker Review of Systems Review of Systems: Unobtainable due to cognitive status Physical Exam Constitutional: well developed and well nourished; no acute distress Eyes: no conjunctival abnormality ENMT: Ears: no external ear abnormality Mouth: no oropharynx abnormality Neck: trachea midline Respiratory: normal respiratory effort; no respiratory distress and no labored breathing Cardiovascular: Rate/Rhythm: regular rate and regular rhythm Gastrointestinal (Abdomen): Soft and nondistended. There is no pain with palpation Musculoskeletal: No calf tenderness Skin: no rashes Neurologic: moves all extremities Results & Data ([facility]) Vital Signs (Past 12 Hours) Vital Signs Temp Pulse Pulse Resp BP BP Pulse Ox 03/30/22 17:02 36.8 C 72 20 151/73 H 91 03/30/22 15:18 77 03/30/22 11:30 36.9 C 87 18 148/74 H 91 03/30/22 07:54 37.5 C 87 18 154/78 H 91 O2 Del Method 03/30/22 17:02 Room Air 03/30/22 15:18 03/30/22 11:30 03/30/22 07:54 PG Care Time/CCT Total # of Minutes Spent Total Time Spent with Patient: Total time spent is greater than 50% in coordination of care (as documented) at patient's floor/unit and/or counseling patient: Coding Level of Care Code 73939 Inpt Consult Level 5 Diagnoses Acute urinary retention R33.8
[2022-03-30] MEDS: PRAVASTATIN SOD 20 MG TAB PO SCH (20:10)
[2022-03-30] MEDS: FAMOTIDINE 20 MG TAB PO SCH (20:10)
[2022-03-31] MEDS: LANTUS PER UNIT CHARGE SQ SCH ×2 (08:47→20:33)
[2022-03-31] MEDS: INSULIN ASPART PER UNIT SC SCH ×4 (08:47→20:34)
[2022-03-31] MEDS ORDERED: COUGH DROP (SUGAR FREE) LOZ 24 LOZ/1 BOX BUCCAL PRN (08:52)
[2022-03-31] MEDS ORDERED: guaiFENesin/DEXTROM SYRUP 100MG/10MG 5ML UDC PO PRN (08:52)
[2022-03-31] MEDS: HYDROcodone/ACETAMINOPHEN 10/325 TAB PO PRN ×3 (09:18→20:12)
[2022-03-31] MEDS: ACETAMINOPHEN 325 MG TAB PO PRN ×2 (09:18→15:54)
[2022-03-31] MEDS: CARBIDOPA/LEVODOPA 25/100MG TAB PO SCH ×3 (09:19→20:13)
[2022-03-31] MEDS: GABAPENTIN 100 MG CAP PO SCH ×2 (09:19→20:13)
[2022-03-31] MEDS: POTASSIUM CHLORIDE 10 MEQ TABCR PO SCH (09:19)
[2022-03-31] MEDS: ASPIRIN 81 MG ECTAB PO SCH (09:20)
[2022-03-31] MEDS: CITALOPRAM 20 MG TAB PO SCH (09:20)
[2022-03-31] MEDS: allopurinoL 300 MG TAB PO SCH (09:20)
[2022-03-31] MEDS: ENOXAPARIN INJ 40 MG/0.4 ML SYR SQ SCH (09:20)
[2022-03-31] MEDS: PANTOprazole 40 MG TAB PO SCH (09:20)
[2022-03-31] MEDS ORDERED: MAGNESIUM HYDROXIDE SUSP 30 ML UDC PO ONE (09:48)
[2022-03-31 10:50] LABS: Basophils # (auto) 0.02 K/uL (0-0.2); Basophils % (auto) 0.3 %; Eosinophils # (auto) 0.04 K/uL (0-0.50); Eosinophils % (auto) 0.5 %; Hematocrit (blood only) 41.4 % (40.1-51.0); Hemoglobin 13.5 g/dl (14.0-18.0); Immature Granulocytes # (auto) 0.08 K/uL (0.00-0.02); Lymphocytes # (auto) 2.04 K/uL (1.2-3.4); Lymphocytes % (auto) 26.2 %; Mean Corpuscular Hemoglobin 30.3 pg (25.0-34.0); Mean Corpuscular Hgb Conc 32.6 g/dL (32.0-36.0); Monocytes # (auto) 0.65 K/uL (0.24-0.82); Monocytes % (auto) 8.3 %; Neutrophils # (auto) 4.97 K/uL (1.4-6.5); Neutrophils % (auto) 63.7 %; Platelet Count 170 K/uL (130-400); RDW Coefficient of Variation 14.4 % (11.5-14.5); RDW Standard Deviation 49.1 fL (36.4-46.3); Red Blood Count 4.45 M/uL (4.63-6.08)
[2022-03-31 11:22] LABS: Albumin Level 3.5 gm/dl (3.4-5.0); BUN Creatinine Ratio 17.8 (10-20); Bilirubin Direct 0.1 mg/dl (0-0.2); Bilirubin,Total 0.6 mg/dl (0.2-1.0); Calcium 8.9 mg/dl (8.5-10.1); Creatinine Clr Calc Pharmacy 54.9 ml/min; Est GFR (African American) 55.9 ml/min; Est GFR (Non-African American) 48.2 ml/min; Potassium 4.3 mmol/L (3.5-5.1); Total Protein 6.8 gm/dl (6.0-8.3)
--- NOTE | 2022-03-31 11:57 | Urology Progress Note ---
Date of Service March 31, 2022 Assessment & Plan (1) Acute urinary retention: Plan: Urology follow-up of urinary retention, hematuria. Hx of prostate ca s/p brachytherapy in 2011. Afebrile, lab work reviewed - creatinine improved to 1.35, WBC 7.80, Hgb 13.5. Urine culture growing Gram negative bacilli - continue Ceftriaxone and narrow per sensitivity data when available. Hematuria has cleared. Recommend maintain Fuentes catheter for 7-10 days for bladder decompression. Will arrange outpatient follow-up with our service for voiding trial and further evaluation. will sign off, please contact us with any questions or concerns. Admission and Anticipated Discharge Date Admission Date: March 29, 2022 Supervising Physician Co-Signing Physician Notes I have discussed Mr. Merritt's case with CHRISTIAN Bell and agree with the above documentation. Hematuria has cleared. We will coordinate void ing trial as an outpatient. Please call with any questions or concerns. Subjective Patient seen at bedside this AM. He is awake, alert and sitting up in bed in no acute distress. No acute issues overnight. Fuentes catheter draining clear yellow urine. No abdominal or suprapubic pain. No nausea or vomiting. No fever or chills. He reports cough and bothersome mucus in his throat. Review of Systems Constitutional: as per Subjective / HPI Gastrointestinal: as per Subjective / HPI Genitourinary: + as per Subjective / HPI Physical Exam Constitutional: well developed, well nourished and + obese; no acute distress Respiratory: normal respiratory effort; no respiratory distress and no labored breathing Cardiovascular: Extremities: no pedal edema Gastrointestinal (Abdomen): Inspection/Auscultation: abdomen normal to inspection; abdomen not distended Percussion/Palpation: abdomen soft; abdomen nontender Musculoskeletal: Extremities: extremities normal to inspection Neurologic: moves all extremities and awake Psychiatric: Orientation: alert and oriented x 3 Genitourinary: Fuentes draining clear yellow Results & Data ([facility]) Vital Signs (Past 12 Hours) Vital Signs Temp Pulse Pulse Resp BP Pulse Ox O2 Del Method 03/31/22 10:26 Room Air 03/31/22 08:20 36.8 C 71 19 164/79 H 90 Room Air 03/31/22 07:30 71 03/31/22 03:45 36.8 C 71 20 163/78 H 91 Room Air PG Care Time/CCT Total # of Minutes Spent Total Time Spent with Patient: Total time spent is greater than 50% in coordination of care (as documented) at patient's floor/unit and/or counseling patient: Coding Level of Care Code 90793 Subseq Hosp Care Lvl 2 Diagnoses Acute urinary retention R33.8
--- NOTE | 2022-03-31 12:00 | Hospitalist Progress Note ---
Date of Service March 31, 2022 Assessment & Plan (1) Urinary tract infection: Plan: Complicated UTI Urine culture: Gram-negative bacilli; identification and sensitivity pending. Continue ceftriaxone IV day #3 Continue Fuentes catheter for now Urology consulted given his history of prostate cancer; recommend to maintain Fuentes for 7 to 10 days and outpatient follow-up for voiding trial. (2) PARMJIT (acute kidney injury): Plan: Resolved, Creatinine down trended from 1.78-1.35; same as baseline. (3) Acute urinary retention: Plan: See plan for #1 (4) COVID-19: Plan: No hypoxia Chest x-ray: No pneumonia Given patient's age, risk factors, offered remdesivir Risks and benefits explained, patient understanding and agreeable Start remdesivir day #2 Started on throat lozenges and cough syrup for symptomatic relief. Incentive spirometry ordered On Lovenox subcu for DVT prophylaxis (5) Type 2 diabetes mellitus: Plan: Last A1c on 02/24/22 9.4. Pt was on Trulicity but in the process of being changed to Ozempic due to backorder issues. Prior auth in process - Baseline insulin and sliding scale - Diabetic diet - Accuchecks (6) History of prostate cancer: (7) (HFpEF) heart failure with preserved ejection fraction: Plan: Euvolemic; will start diuretic on discharge. (8) Parkinsons: Plan: - Continue Sinemet (9) Ambulatory dysfunction: Plan: - PT/OT evaluations (10) Depression: Plan: On citalopram as outpatient Plan DVT Prophylaxis: Lovenox Code Status: DNR/DNI per pt's brother Zuhair Merritt Disposition PT/OT recommends rehab; case management on board. Admission and Anticipated Discharge Date Admission Date: March 29, 2022 Subjective Patient seen and examined at bedside. He complains of sore throat and mild cough. Denies any shortness of breath, chest pain, fever or chills. Fuentes is in place draining clear urine. Review of Systems Review of Systems: All systems reviewed & are unremarkable except as noted in Subjective Physical Exam Physical Exam: Constitutional: WD/WN, vitals as above, NAD, sitting up in bed, pleasant, conversing easily Respiratory: normal respiratory effort, lungs clear to auscultation, no wheeze, rales, rhonchi. Normal insp/exp effort, no accessory muscle use Cardiovascular: RRR, no murmur, no edema Vessels: no JVD or carotid bruit Chest: normal inspection of chest Abdomen: normal bowel sounds, soft, nontender, no hepatosplenomegaly. Fuentes in place draining clear urine. Musculoskeletal: no cyanosis or clubbing, extremities motor strength 5/5 Skin: no rashes, warm and dry normal turgor Neurologic: PERRL, EOMI, accommodation nl, no face palsy, no dysarthria CN's II- XI intact bilaterally and moves all extremities Psychiatric: A+Ox3, euthymic affect Lymphatic: no cervical or axillary lymphadenopathy : deferred Results & Data Results & Data ([facility]) Vital Signs (Past 12 Hours) Vital Signs Temp Pulse Pulse Resp BP Pulse Ox O2 Del Method 03/31/22 10:26 Room Air 03/31/22 08:20 36.8 C 71 19 164/79 H 90 Room Air 03/31/22 07:30 71 03/31/22 03:45 36.8 C 71 20 163/78 H 91 Room Air Laboratory Results Laboratory Results WBC 7.80 K/ul (4.8-10.8) 03/31/22 10:15 RBC 4.45 M/uL (4.63-6.08) L 03/31/22 10:15 Hgb 13.5 g/dl (14.0-18.0) L 03/31/22 10:15 Hct 41.4 % (40.1-51.0) 03/31/22 10:15 MCV 93.0 fL (80.0-100.0) 03/31/22 10:15 MCH 30.3 pg (25.0-34.0) 03/31/22 10:15 MCHC 32.6 g/dL (32.0-36.0) 03/31/22 10:15 RDW Std Deviation 49.1 fL (36.4-46.3) H 03/31/22 10:15 RDW Coeff of Faiza 14.4 % (11.5-14.5) 03/31/22 10:15 Plt Count 170 K/uL (130-400) 03/31/22 10:15 MPV 11.0 fL (9.4-12.4) 03/31/22 10:15 Immature Gran % (Auto) 1.0 % 03/31/22 10:15 Neut % (Auto) 63.7 % 03/31/22 10:15 Lymph % (Auto) 26.2 % 03/31/22 10:15 [place] % (Auto) 8.3 % 03/31/22 10:15 Eos % (Auto) 0.5 % 03/31/22 10:15 Baso % (Auto) 0.3 % 03/31/22 10:15 Neut # (Auto) 4.97 K/uL (1.4-6.5) 03/31/22 10:15 Lymph # (Auto) 2.04 K/uL (1.2-3.4) 03/31/22 10:15 [place] # (Auto) 0.65 K/uL (0.24-0.82) 03/31/22 10:15 Eos # (Auto) 0.04 K/uL (0-0.50) 03/31/22 10:15 Baso # (Auto) 0.02 K/uL (0-0.2) 03/31/22 10:15 Immature Gran # (Auto) 0.08 K/uL (0.00-0.02) H 03/31/22 10:15 PT 10.9 Seconds (9.0-12.0) 03/29/22 13:34 INR 1.0 (0.9-1.1) 03/29/22 13:34 APTT 30.0 Seconds (21.0-31.0) 03/29/22 13:34 PTT Ratio 1.1 03/29/22 13:34 Sodium 133 mmol/L (136-145) L 03/31/22 10:15 Potassium 4.3 mmol/L (3.5-5.1) 03/31/22 10:15 Chloride 99 mmol/L (98-107) 03/31/22 10:15 Carbon Dioxide 26 mmol/L (21-32) 03/31/22 10:15 Anion Gap 8 (3-11) 03/31/22 10:15 BUN 24 mg/dl (6-23) H 03/31/22 10:15 Creatinine 1.35 mg/dl (0.6-1.4) 03/31/22 10:15 Est Cr Clr Drug Dosing 54.9 ml/min 03/31/22 10:15 Est GFR ( Amer) 55.9 ml/min 03/31/22 10:15 Est GFR (Non-Af Amer) 48.2 ml/min 03/31/22 10:15 BUN/Creatinine Ratio 17.8 (10-20) 03/31/22 10:15 Glucose 229 mg/dl (70-99(Fasting)) H 03/31/22 10:15 POC Glucose 210 mg/dl (70-99) H 03/31/22 12:02 Calcium 8.9 mg/dl (8.5-10.1) 03/31/22 10:15 Magnesium 2.2 mg/dl (1.7-2.4) 03/29/22 13:34 Total Bilirubin 0.6 mg/dl (0.2-1.0) 03/31/22 10:15 Direct Bilirubin 0.1 mg/dl (0-0.2) 03/31/22 10:15 AST 77 U/L (13-39) H 03/31/22 10:15 ALT 30 U/L (7-52) 03/31/22 10:15 Alkaline Phosphatase 133 U/L (34-104) H 03/31/22 10:15 Total Creatine Kinase 51 U/L (30-223) 03/29/22 13:34 Troponin I High Sens 11.5 pg/ml (0-20) 03/29/22 13:34 Total Protein 6.8 gm/dl (6.0-8.3) 03/31/22 10:15 Albumin 3.5 gm/dl (3.4-5.0) 03/31/22 10:15 Globulin 3.7 gm/dl (2.5-4.0) 03/29/22 13:34 Albumin/Globulin Ratio 1.1 (0.9-2) 03/29/22 13:34 Lipase 21 U/L (11-82) 03/29/22 13:34 Urine Color Yellow 03/29/22 14:22 Urine Appearance Turbid (Clear) A 03/29/22 14:22 Urine pH 6.0 (4.5-7.5) 03/29/22 14:22 Ur Specific Joice 1.020 (1.000-1.030) 03/29/22 14:22 Urine Protein Trace (Negative) H 03/29/22 14:22 Urine Glucose (UA) 3+ (Negative) H 03/29/22 14:22 Urine Ketones Negative (Negative) 03/29/22 14:22 Urine Blood 2+ (Negative) H 03/29/22 14:22 Urine Nitrite Negative (Negative) 03/29/22 14:22 Urine Bilirubin Negative (Negative) 03/29/22 14:22 Urine Urobilinogen Negative (Negative) 03/29/22 14:22 Ur Leukocyte Esterase 3+ (Negative) H 03/29/22 14:22 Urine WBC (Auto) >30 /hpf (0-5) H 03/29/22 14:22 Urine RBC (Auto) 5-10 /hpf (0-4) H 03/29/22 14:22 U Hyaline Cast (Auto) 0 /lpf (0-5) 03/29/22 14:22 U Epithel Cells (Auto) 10-20 /lpf (0-5) H 03/29/22 14:22 Urine Bacteria (Auto) 4+ (Negative) H 03/29/22 14:22 Salicylates < 3.0 mg/dl (3.0-30) L 03/29/22 14:11 Urine Opiates Screen Pos (Neg) H 03/29/22 14:22 Ur Methadone, Qual Neg (Neg) 03/29/22 14:22 Acetaminophen < 3 ug/ml (10-30) L 03/29/22 14:11 Urine Barbiturates Neg (Neg) 03/29/22 14:22 Ur Phencyclidine (PCP) Neg (Neg) 03/29/22 14:22 U Amphetamin/Meth Scrn Neg (Neg) 03/29/22 14:22 MDMA (Ecstasy) Screen Neg (Neg) 03/29/22 14:22 U Benzodiazepines Scrn Neg (Neg) 03/29/22 14:22 Ur Cocaine Metabolite Neg (Neg) 03/29/22 14:22 U Marijuana (THC) Screen Neg (Neg) 03/29/22 14:22 Ethyl Alcohol mg/dL < 10.0 mg/dl (<10.0) 03/29/22 14:11 SARS-CoV-2, RNA, NAAT POSITIVE (NEGATIVE) A* 03/29/22 14:27 Impressions Chest X-Ray 03/29/22 13:38 XR chest 1V portable HISTORY: medical clearance COMPARISON: Chest 11/07/2021. FINDINGS: A few bibasilar linear densities consistent with subsegmental atelectasis. Otherwise, the lungs are clear. The cardiac silhouette remains borderline enlarged. No pleural effusions. No pneumothorax. Degenerative changes within the shoulders. Smooth lobular left lateral density is likely due to overlapping soft tissues. IMPRESSION: No significant change compared to the prior study. No acute process. ACT 112: Negative or not required by law. Electronically signed by: Fernando Kirkpatrick M.D. 03/29/2022 2:05 PM KUB X-Ray 03/30/22 14:14 XR KUB/Abdomen 1 view CLINICAL HISTORY: nausea, r/o ileus TECHNIQUE: 1 view of the abdomen was obtained. Comparison: Comparison is made to abdomen radiograph 07/08/2020 FINDINGS: Lung bases are unremarkable. Degenerative changes are seen in the visualized skeleton. The bowel gas pattern is nonobstructive. A moderate amount of stool is noted within the large bowel. Prostate therapy changes are seen and there is a total left hip arthroplasty. IMPRESSION: Nonobstructive bowel gas pattern. ACT 112: Negative or not required by law. Electronically signed by: Fritz Weber M.D. 03/30/2022 2:55 PM (1) Urinary tract infection Hematuria presence: without hematuria Urinary tract infection type: site unspecified Qualified Code(s): N39.0 - Urinary tract infection, site not specified
[2022-03-31] MEDS ORDERED: MAGNESIUM HYDROXIDE SUSP 30 ML UDC ONE (12:01)
[2022-03-31] MEDS: REMDESIVIR 100 MG in SODIUM CHLORIDE 0.9% 230 ML IV SCH (12:24)
[2022-03-31] MEDS: cefTRIAXone SODIUM 2,000 MG in DEXTROSE 5% 50 ML IV SCH (15:13)
[2022-03-31] MEDS: TAMSULOSIN HCL 0.4 MG CAP PO SCH (17:06)
[2022-03-31] MEDS: PRAVASTATIN SOD 20 MG TAB PO SCH (20:13)
[2022-03-31] MEDS: FAMOTIDINE 20 MG TAB PO SCH (20:13)
[2022-04-01] MEDS: PANTOprazole 40 MG TAB PO SCH (08:50)
[2022-04-01] MEDS: CITALOPRAM 20 MG TAB PO SCH (08:50)
[2022-04-01] MEDS: ASPIRIN 81 MG ECTAB PO SCH (08:50)
[2022-04-01] MEDS: GABAPENTIN 100 MG CAP PO SCH ×2 (08:50→20:48)
[2022-04-01] MEDS: POTASSIUM CHLORIDE 10 MEQ TABCR PO SCH (08:50)
[2022-04-01] MEDS: CARBIDOPA/LEVODOPA 25/100MG TAB PO SCH ×3 (08:50→20:48)
[2022-04-01] MEDS: allopurinoL 300 MG TAB PO SCH (08:51)
[2022-04-01] MEDS: ENOXAPARIN INJ 40 MG/0.4 ML SYR SQ SCH (08:51)
[2022-04-01 09:01] LABS: Basophils # (auto) 0.03 K/uL (0-0.2); Basophils % (auto) 0.4 %; Eosinophils # (auto) 0.22 K/uL (0-0.50); Eosinophils % (auto) 3.2 %; Hematocrit (blood only) 39.7 % (40.1-51.0); Hemoglobin 13.3 g/dl (14.0-18.0); Immature Granulocytes # (auto) 0.07 K/uL (0.00-0.02); Lymphocytes # (auto) 2.39 K/uL (1.2-3.4); Mean Corpuscular Hemoglobin 30.3 pg (25.0-34.0); Mean Corpuscular Hgb Conc 33.5 g/dL (32.0-36.0); Mean Corpuscular Volume 90.4 fL (80.0-100.0); Mean Platelet Volume 10.9 fL (9.4-12.4); Monocytes # (auto) 0.52 K/uL (0.24-0.82); Monocytes % (auto) 7.6 %; Neutrophils % (auto) 52.8 %; Platelet Count 159 K/uL (130-400); RDW Coefficient of Variation 14.2 % (11.5-14.5); Red Blood Count 4.39 M/uL (4.63-6.08); White Blood Count 6.83 K/ul (4.8-10.8)
[2022-04-01] MEDS: HYDROcodone/ACETAMINOPHEN 10/325 TAB PO PRN ×2 (09:04→20:49)
[2022-04-01 09:29] LABS: Albumin Level 3.3 gm/dl (3.4-5.0); BUN Creatinine Ratio 21.1 (10-20); Bilirubin Direct 0.1 mg/dl (0-0.2); Bilirubin,Total 0.5 mg/dl (0.2-1.0); Calcium 8.7 mg/dl (8.5-10.1); Creatinine Clr Calc Pharmacy 60.3 ml/min; Est GFR (African American) 62.5 ml/min; Potassium 4.1 mmol/L (3.5-5.1); Total Protein 6.5 gm/dl (6.0-8.3)
--- NOTE | 2022-04-01 12:25 | Hospitalist Progress Note ---
Date of Service April 01, 2022 Assessment & Plan (1) Urinary tract infection: Plan: Complicated UTI Urine culture: Klebsiella pneumonia; sensitive to ceftriaxone Continue ceftriaxone IV day #4 Continue Fuentes catheter for now Urology consulted given his history of prostate cancer; recommend to maintain Funetes for 7 to 10 days and outpatient follow-up for voiding trial. Plan to give antibiotics for total of 7 to 10 days as well. (2) PARMJIT (acute kidney injury): Plan: Resolved, Creatinine down trended from 1.78 to 1.23; same as baseline. (3) Acute urinary retention: Plan: See plan for #1 (4) COVID-19: Plan: No hypoxia Chest x-ray: No pneumonia Given patient's age, risk factors, offered remdesivir Risks and benefits explained, patient understanding and agreeable On remdesivir day #3 on throat lozenges and cough syrup for symptomatic relief. Incentive spirometry ordered On Lovenox subcu for DVT prophylaxis (5) Type 2 diabetes mellitus: Plan: Last A1c on 02/24/22 9.4. Pt was on Trulicity but in the process of being changed to Ozempic due to backorder issues. Prior auth in process - Baseline insulin and sliding scale - Diabetic diet - Accuchecks (6) History of prostate cancer: (7) (HFpEF) heart failure with preserved ejection fraction: Plan: Euvolemic; will start diuretic on discharge. (8) Parkinsons: Plan: - Continue Sinemet (9) Ambulatory dysfunction: Plan: - PT/OT evaluation recommended rehab. However, patient prefers going home with home PT/OT. (10) Depression: Plan: On citalopram as outpatient Plan DVT Prophylaxis: Lovenox Code Status: DNR/DNI per pt's brother Zuhair Merritt Disposition PT/OT recommended rehab; but patient prefers going home as per . Admission and Anticipated Discharge Date Admission Date: March 29, 2022 Subjective Patient seen and examined at bedside. He is comfortable; not in any distress. He reports that the sore throat is slightly better compared to yesterday but continues to have cough. No fever overnight. Review of Systems Review of Systems: All systems reviewed & are unremarkable except as noted in Subjective Physical Exam Physical Exam: Constitutional: WD/WN, vitals as above, NAD, sitting up in bed, pleasant, conversing easily Respiratory: normal respiratory effort, lungs clear to auscultation, no wheeze, rales, rhonchi. Normal insp/exp effort, no accessory muscle use Cardiovascular: RRR, no murmur, no edema Vessels: no JVD or carotid bruit Chest: normal inspection of chest Abdomen: normal bowel sounds, soft, nontender, no hepatosplenomegaly. Fuentes in place draining clear urine. Musculoskeletal: no cyanosis or clubbing, extremities motor strength 5/5 Skin: no rashes, warm and dry normal turgor Neurologic: PERRL, EOMI, accommodation nl, no face palsy, no dysarthria CN's II- XI intact bilaterally and moves all extremities Psychiatric: A+Ox3, euthymic affect Lymphatic: no cervical or axillary lymphadenopathy : deferred Results & Data Results & Data ([facility]) Vital Signs (Past 12 Hours) Vital Signs Temp Pulse Pulse Resp BP Pulse Ox O2 Del Method 04/01/22 11:48 37.1 C 71 18 177/77 H 92 Room Air 04/01/22 11:44 66 04/01/22 07:52 36.7 C 67 18 175/80 H 95 Room Air 04/01/22 02:40 36.6 C 69 17 133/63 93 Room Air Laboratory Results Laboratory Results WBC 6.83 K/ul (4.8-10.8) 04/01/22 08:03 RBC 4.39 M/uL (4.63-6.08) L 04/01/22 08:03 Hgb 13.3 g/dl (14.0-18.0) L 04/01/22 08:03 Hct 39.7 % (40.1-51.0) L 04/01/22 08:03 MCV 90.4 fL (80.0-100.0) 04/01/22 08:03 MCH 30.3 pg (25.0-34.0) 04/01/22 08:03 MCHC 33.5 g/dL (32.0-36.0) 04/01/22 08:03 RDW Std Deviation 47.0 fL (36.4-46.3) H 04/01/22 08:03 RDW Coeff of Faiza 14.2 % (11.5-14.5) 04/01/22 08:03 Plt Count 159 K/uL (130-400) 04/01/22 08:03 MPV 10.9 fL (9.4-12.4) 04/01/22 08:03 Immature Gran % (Auto) 1.0 % 04/01/22 08:03 Neut % (Auto) 52.8 % 04/01/22 08:03 Lymph % (Auto) 35.0 % 04/01/22 08:03 [place] % (Auto) 7.6 % 04/01/22 08:03 Eos % (Auto) 3.2 % 04/01/22 08:03 Baso % (Auto) 0.4 % 04/01/22 08:03 Neut # (Auto) 3.60 K/uL (1.4-6.5) 04/01/22 08:03 Lymph # (Auto) 2.39 K/uL (1.2-3.4) 04/01/22 08:03 [place] # (Auto) 0.52 K/uL (0.24-0.82) 04/01/22 08:03 Eos # (Auto) 0.22 K/uL (0-0.50) 04/01/22 08:03 Baso # (Auto) 0.03 K/uL (0-0.2) 04/01/22 08:03 Immature Gran # (Auto) 0.07 K/uL (0.00-0.02) H 04/01/22 08:03 PT 10.9 Seconds (9.0-12.0) 03/29/22 13:34 INR 1.0 (0.9-1.1) 03/29/22 13:34 APTT 30.0 Seconds (21.0-31.0) 03/29/22 13:34 PTT Ratio 1.1 03/29/22 13:34 Sodium 134 mmol/L (136-145) L 04/01/22 08:03 Potassium 4.1 mmol/L (3.5-5.1) 04/01/22 08:03 Chloride 101 mmol/L (98-107) 04/01/22 08:03 Carbon Dioxide 26 mmol/L (21-32) 04/01/22 08:03 Anion Gap 7 (3-11) 04/01/22 08:03 BUN 26 mg/dl (6-23) H 04/01/22 08:03 Creatinine 1.23 mg/dl (0.6-1.4) 04/01/22 08:03 Est Cr Clr Drug Dosing 60.3 ml/min 04/01/22 08:03 Est GFR ( Amer) 62.5 ml/min 04/01/22 08:03 Est GFR (Non-Af Amer) 54.0 ml/min 04/01/22 08:03 BUN/Creatinine Ratio 21.1 (10-20) H 04/01/22 08:03 Glucose 160 mg/dl (70-99(Fasting)) H 04/01/22 08:03 POC Glucose 241 mg/dl (70-99) H 04/01/22 11:37 Calcium 8.7 mg/dl (8.5-10.1) 04/01/22 08:03 Magnesium 2.2 mg/dl (1.7-2.4) 03/29/22 13:34 Total Bilirubin 0.5 mg/dl (0.2-1.0) 04/01/22 08:03 Direct Bilirubin 0.1 mg/dl (0-0.2) 04/01/22 08:03 AST 69 U/L (13-39) H 04/01/22 08:03 ALT 29 U/L (7-52) 04/01/22 08:03 Alkaline Phosphatase 134 U/L (34-104) H 04/01/22 08:03 Total Creatine Kinase 51 U/L (30-223) 03/29/22 13:34 Troponin I High Sens 11.5 pg/ml (0-20) 03/29/22 13:34 Total Protein 6.5 gm/dl (6.0-8.3) 04/01/22 08:03 Albumin 3.3 gm/dl (3.4-5.0) L 04/01/22 08:03 Globulin 3.7 gm/dl (2.5-4.0) 03/29/22 13:34 Albumin/Globulin Ratio 1.1 (0.9-2) 03/29/22 13:34 Lipase 21 U/L (11-82) 03/29/22 13:34 Urine Color Yellow 03/29/22 14:22 Urine Appearance Turbid (Clear) A 03/29/22 14:22 Urine pH 6.0 (4.5-7.5) 03/29/22 14:22 Ur Specific [place] 1.020 (1.000-1.030) 03/29/22 14:22 Urine Protein Trace (Negative) H 03/29/22 14:22 Urine Glucose (UA) 3+ (Negative) H 03/29/22 14:22 Urine Ketones Negative (Negative) 03/29/22 14:22 Urine Blood 2+ (Negative) H 03/29/22 14:22 Urine Nitrite Negative (Negative) 03/29/22 14:22 Urine Bilirubin Negative (Negative) 03/29/22 14:22 Urine Urobilinogen Negative (Negative) 03/29/22 14:22 Ur Leukocyte Esterase 3+ (Negative) H 03/29/22 14:22 Urine WBC (Auto) >30 /hpf (0-5) H 03/29/22 14:22 Urine RBC (Auto) 5-10 /hpf (0-4) H 03/29/22 14:22 U Hyaline Cast (Auto) 0 /lpf (0-5) 03/29/22 14:22 U Epithel Cells (Auto) 10-20 /lpf (0-5) H 03/29/22 14:22 Urine Bacteria (Auto) 4+ (Negative) H 03/29/22 14:22 Salicylates < 3.0 mg/dl (3.0-30) L 03/29/22 14:11 Urine Opiates Screen Pos (Neg) H 03/29/22 14:22 Ur Methadone, Qual Neg (Neg) 03/29/22 14:22 Acetaminophen < 3 ug/ml (10-30) L 03/29/22 14:11 Urine Barbiturates Neg (Neg) 03/29/22 14:22 Ur Phencyclidine (PCP) Neg (Neg) 03/29/22 14:22 U Amphetamin/Meth Scrn Neg (Neg) 03/29/22 14:22 MDMA (Ecstasy) Screen Neg (Neg) 03/29/22 14:22 U Benzodiazepines Scrn Neg (Neg) 03/29/22 14:22 Ur Cocaine Metabolite Neg (Neg) 03/29/22 14:22 U Marijuana (THC) Screen Neg (Neg) 03/29/22 14:22 Ethyl Alcohol mg/dL < 10.0 mg/dl (<10.0) 03/29/22 14:11 SARS-CoV-2, RNA, NAAT POSITIVE (NEGATIVE) A* 03/29/22 14:27 Impressions Chest X-Ray 03/29/22 13:38 XR chest 1V portable HISTORY: medical clearance COMPARISON: Chest 11/07/2021. FINDINGS: A few bibasilar linear densities consistent with subsegmental atelectasis. Otherwise, the lungs are clear. The cardiac silhouette remains borderline enlarged. No pleural effusions. No pneumothorax. Degenerative changes within the shoulders. Smooth lobular left lateral density is likely due to overlapping soft tissues. IMPRESSION: No significant change compared to the prior study. No acute process. ACT 112: Negative or not required by law. Electronically signed by: Fernando Kirkpatrick M.D. 03/29/2022 2:05 PM KUB X-Ray 03/30/22 14:14 XR KUB/Abdomen 1 view CLINICAL HISTORY: nausea, r/o ileus TECHNIQUE: 1 view of the abdomen was obtained. Comparison: Comparison is made to abdomen radiograph 07/08/2020 FINDINGS: Lung bases are unremarkable. Degenerative changes are seen in the visualized skeleton. The bowel gas pattern is nonobstructive. A moderate amount of stool is noted within the large bowel. Prostate therapy changes are seen and there is a total left hip arthroplasty. IMPRESSION: Nonobstructive bowel gas pattern. ACT 112: Negative or not required by law. Electronically signed by: Fritz Weber M.D. 03/30/2022 2:55 PM (1) Urinary tract infection Hematuria presence: without hematuria Urinary tract infection type: site unspecified Qualified Code(s): N39.0 - Urinary tract infection, site not specified
[2022-04-01] MEDS: INSULIN ASPART PER UNIT SC SCH ×4 (12:42→20:24)
[2022-04-01] MEDS: LANTUS PER UNIT CHARGE SQ SCH ×2 (12:43→20:43)
[2022-04-01] MEDS: REMDESIVIR 100 MG in SODIUM CHLORIDE 0.9% 230 ML IV SCH (12:57)
[2022-04-01] MEDS: cefTRIAXone SODIUM 2,000 MG in DEXTROSE 5% 50 ML IV SCH (15:30)
[2022-04-01] MEDS: TAMSULOSIN HCL 0.4 MG CAP PO SCH (17:19)
[2022-04-01] MEDS: PRAVASTATIN SOD 20 MG TAB PO SCH (20:48)
[2022-04-01] MEDS: FAMOTIDINE 20 MG TAB PO SCH (20:49)
[2022-04-02 00:32] LABS: Codeine Urine NEGATIVE ng/mL (<50); Hydrocodone Urine 233 ng/mL (<50); Hydromor Urine 115 ng/mL (<50); Morphine Urine NEGATIVE ng/mL (<50); Norhydrocodone Conf Ur 515 ng/mL (<50); Noroxycodone Urine NEGATIVE ng/mL (<50); Oxycodone Urine NEGATIVE ng/mL (<50); Oxymorph Urine NEGATIVE ng/mL (<50)
[2022-04-02] MEDS: HYDROcodone/ACETAMINOPHEN 10/325 TAB PO PRN ×2 (07:34→21:51)
[2022-04-02] MEDS: CITALOPRAM 20 MG TAB PO SCH (07:35)
[2022-04-02] MEDS: allopurinoL 300 MG TAB PO SCH (07:35)
[2022-04-02] MEDS: GABAPENTIN 100 MG CAP PO SCH ×2 (07:35→21:53)
[2022-04-02] MEDS: CARBIDOPA/LEVODOPA 25/100MG TAB PO SCH ×3 (07:35→21:52)
[2022-04-02] MEDS: POTASSIUM CHLORIDE 10 MEQ TABCR PO SCH (07:35)
[2022-04-02] MEDS: ENOXAPARIN INJ 40 MG/0.4 ML SYR SQ SCH (07:36)
[2022-04-02] MEDS: PANTOprazole 40 MG TAB PO SCH (07:36)
[2022-04-02] MEDS: ASPIRIN 81 MG ECTAB PO SCH (07:36)
[2022-04-02] MEDS: INSULIN ASPART PER UNIT SC SCH ×4 (08:55→21:50)
[2022-04-02] MEDS: LANTUS PER UNIT CHARGE SQ SCH ×2 (10:17→21:49)
[2022-04-02 11:19] LABS: Basophils # (auto) 0.01 K/uL (0-0.2); Basophils % (auto) 0.1 %; Eosinophils # (auto) 0.19 K/uL (0-0.50); Eosinophils % (auto) 2.1 %; Hematocrit (blood only) 41.5 % (40.1-51.0); Hemoglobin 13.7 g/dl (14.0-18.0); Immature Granulocytes # (auto) 0.04 K/uL (0.00-0.02); Immature Granulocytes % (auto) 0.4 %; Lymphocytes # (auto) 2.42 K/uL (1.2-3.4); Lymphocytes % (auto) 26.7 %; Mean Corpuscular Hemoglobin 30.4 pg (25.0-34.0); Monocytes # (auto) 0.56 K/uL (0.24-0.82); Monocytes % (auto) 6.2 %; Neutrophils # (auto) 5.83 K/uL (1.4-6.5); Neutrophils % (auto) 64.5 %; Platelet Count 152 K/uL (130-400); RDW Coefficient of Variation 13.9 % (11.5-14.5); RDW Standard Deviation 47.1 fL (36.4-46.3); Red Blood Count 4.51 M/uL (4.63-6.08); White Blood Count 9.05 K/ul (4.8-10.8)
[2022-04-02 11:47] LABS: BUN Creatinine Ratio 21.6 (10-20); Calcium 8.6 mg/dl (8.5-10.1); Creatinine Clr Calc Pharmacy 59.4 ml/min; Est GFR (African American) 61.3 ml/min; Est GFR (Non-African American) 52.9 ml/min; Potassium 4.5 mmol/L (3.5-5.1)
[2022-04-02] MEDS: REMDESIVIR 100 MG in SODIUM CHLORIDE 0.9% 230 ML IV SCH (11:58)
[2022-04-02] MEDS: cefTRIAXone SODIUM 2,000 MG in DEXTROSE 5% 50 ML IV SCH (13:52)
--- NOTE | 2022-04-02 14:18 | Hospitalist Progress Note ---
Date of Service April 02, 2022 Assessment & Plan (1) Urinary tract infection: Plan: Complicated UTI Urine culture: Klebsiella pneumonia; sensitive to ceftriaxone Continue ceftriaxone IV day #5 Continue Fuentes catheter for now Urology consulted given his history of prostate cancer; recommend to maintain Fuentes for 7 to 10 days and outpatient follow-up for voiding trial. Plan to give antibiotics for total of 7 to 10 days as well. (2) PARMJIT (acute kidney injury): Plan: Resolved, Creatinine down trended from 1.78 to 1.23; same as baseline. (3) Acute urinary retention: Plan: See plan for #1 (4) COVID-19: Plan: No hypoxia Chest x-ray: No pneumonia Given patient's age, risk factors, offered remdesivir Risks and benefits explained, patient understanding and agreeable On remdesivir day #4 on throat lozenges and cough syrup for symptomatic relief. Incentive spirometry ordered On Lovenox subcu for DVT prophylaxis (5) Type 2 diabetes mellitus: Plan: Last A1c on 02/24/22 9.4. Pt was on Trulicity but in the process of being changed to Ozempic due to backorder issues. Prior auth in process - Baseline insulin and sliding scale - Diabetic diet - Accuchecks (6) History of prostate cancer: (7) (HFpEF) heart failure with preserved ejection fraction: Plan: Euvolemic; started on home diuretics (8) Parkinsons: Plan: - Continue Sinemet (9) Ambulatory dysfunction: Plan: - PT/OT evaluation recommended rehab. Discussed with patient; agreeable for rehab. Referral sent to [facility]. (10) Depression: Plan: On citalopram as outpatient Plan DVT Prophylaxis: Lovenox Code Status: DNR/DNI per pt's brother Zuhair Merritt Disposition PT/OT evaluation recommended rehab. Discussed with patient; agreeable for rehab. Referral sent to [facility]. Admission and Anticipated Discharge Date Admission Date: March 29, 2022 Subjective Patient seen and examined at bedside. He is comfortably lying in the bed; not in any distress. He is afebrile, saturating well in room air Review of Systems Review of Systems: All systems reviewed & are unremarkable except as noted in Subjective Physical Exam Physical Exam: Constitutional: WD/WN, vitals as above, NAD, sitting up in bed, pleasant, conversing easily Respiratory: normal respiratory effort, lungs clear to auscultation, no wheeze, rales, rhonchi. Normal insp/exp effort, no accessory muscle use Cardiovascular: RRR, no murmur, no edema Vessels: no JVD or carotid bruit Chest: normal inspection of chest Abdomen: normal bowel sounds, soft, nontender, no hepatosplenomegaly. Fuentes in place draining clear urine. Musculoskeletal: no cyanosis or clubbing, extremities motor strength 5/5 Skin: no rashes, warm and dry normal turgor Neurologic: PERRL, EOMI, accommodation nl, no face palsy, no dysarthria CN's II- XI intact bilaterally and moves all extremities Psychiatric: A+Ox3, euthymic affect Lymphatic: no cervical or axillary lymphadenopathy : deferred Results & Data Results & Data ([facility]) Vital Signs (Past 12 Hours) Vital Signs Temp Pulse Pulse Resp BP Pulse Ox O2 Del Method 04/02/22 11:00 36.9 C 66 14 137/67 90 Room Air 04/02/22 09:40 Room Air 04/02/22 09:35 61 04/02/22 07:40 36.4 C L 66 14 153/79 H 91 Room Air Laboratory Results Laboratory Results WBC 9.05 K/ul (4.8-10.8) 04/02/22 11:03 RBC 4.51 M/uL (4.63-6.08) L 04/02/22 11:03 Hgb 13.7 g/dl (14.0-18.0) L 04/02/22 11:03 Hct 41.5 % (40.1-51.0) 04/02/22 11:03 MCV 92.0 fL (80.0-100.0) 04/02/22 11:03 MCH 30.4 pg (25.0-34.0) 04/02/22 11:03 MCHC 33.0 g/dL (32.0-36.0) 04/02/22 11:03 RDW Std Deviation 47.1 fL (36.4-46.3) H 04/02/22 11:03 RDW Coeff of Faiza 13.9 % (11.5-14.5) 04/02/22 11:03 Plt Count 152 K/uL (130-400) 04/02/22 11:03 MPV 11.0 fL (9.4-12.4) 04/02/22 11:03 Immature Gran % (Auto) 0.4 % 04/02/22 11:03 Neut % (Auto) 64.5 % 04/02/22 11:03 Lymph % (Auto) 26.7 % 04/02/22 11:03 White % (Auto) 6.2 % 04/02/22 11:03 Eos % (Auto) 2.1 % 04/02/22 11:03 Baso % (Auto) 0.1 % 04/02/22 11:03 Neut # (Auto) 5.83 K/uL (1.4-6.5) 04/02/22 11:03 Lymph # (Auto) 2.42 K/uL (1.2-3.4) 04/02/22 11:03 White # (Auto) 0.56 K/uL (0.24-0.82) 04/02/22 11:03 Eos # (Auto) 0.19 K/uL (0-0.50) 04/02/22 11:03 Baso # (Auto) 0.01 K/uL (0-0.2) 04/02/22 11:03 Immature Gran # (Auto) 0.04 K/uL (0.00-0.02) H 04/02/22 11:03 PT 10.9 Seconds (9.0-12.0) 03/29/22 13:34 INR 1.0 (0.9-1.1) 03/29/22 13:34 APTT 30.0 Seconds (21.0-31.0) 03/29/22 13:34 PTT Ratio 1.1 03/29/22 13:34 Sodium 129 mmol/L (136-145) L 04/02/22 11:03 Potassium 4.5 mmol/L (3.5-5.1) 04/02/22 11:03 Chloride 99 mmol/L (98-107) 04/02/22 11:03 Carbon Dioxide 23 mmol/L (21-32) 04/02/22 11:03 Anion Gap 7 (3-11) 04/02/22 11:03 BUN 27 mg/dl (6-23) H 04/02/22 11:03 Creatinine 1.25 mg/dl (0.6-1.4) 04/02/22 11:03 Est Cr Clr Drug Dosing 59.4 ml/min 04/02/22 11:03 Est GFR ( Amer) 61.3 ml/min 04/02/22 11:03 Est GFR (Non-Af Amer) 52.9 ml/min 04/02/22 11:03 BUN/Creatinine Ratio 21.6 (10-20) H 04/02/22 11:03 Glucose 234 mg/dl (70-99(Fasting)) H 04/02/22 11:03 POC Glucose 229 mg/dl (70-99) H 04/02/22 11:59 Calcium 8.6 mg/dl (8.5-10.1) 04/02/22 11:03 Magnesium 2.2 mg/dl (1.7-2.4) 03/29/22 13:34 Total Bilirubin 0.5 mg/dl (0.2-1.0) 04/01/22 08:03 Direct Bilirubin 0.1 mg/dl (0-0.2) 04/01/22 08:03 AST 69 U/L (13-39) H 04/01/22 08:03 ALT 29 U/L (7-52) 04/01/22 08:03 Alkaline Phosphatase 134 U/L (34-104) H 04/01/22 08:03 Total Creatine Kinase 51 U/L (30-223) 03/29/22 13:34 Troponin I High Sens 11.5 pg/ml (0-20) 03/29/22 13:34 Total Protein 6.5 gm/dl (6.0-8.3) 04/01/22 08:03 Albumin 3.3 gm/dl (3.4-5.0) L 04/01/22 08:03 Globulin 3.7 gm/dl (2.5-4.0) 03/29/22 13:34 Albumin/Globulin Ratio 1.1 (0.9-2) 03/29/22 13:34 Lipase 21 U/L (11-82) 03/29/22 13:34 Urine Color Yellow 03/29/22 14:22 Urine Appearance Turbid (Clear) A 03/29/22 14:22 Urine pH 6.0 (4.5-7.5) 03/29/22 14:22 Ur Specific [place] 1.020 (1.000-1.030) 03/29/22 14:22 Urine Protein Trace (Negative) H 03/29/22 14:22 Urine Glucose (UA) 3+ (Negative) H 03/29/22 14:22 Urine Ketones Negative (Negative) 03/29/22 14:22 Urine Blood 2+ (Negative) H 03/29/22 14:22 Urine Nitrite Negative (Negative) 03/29/22 14: Urine Bilirubin Negative (Negative) 03/29/22 14:22 Urine Urobilinogen Negative (Negative) 03/29/22 14:22 Ur Leukocyte Esterase 3+ (Negative) H 03/29/22 14:22 Urine WBC (Auto) >30 /hpf (0-5) H 03/29/22 14: Urine RBC (Auto) 5-10 /hpf (0-4) H 03/29/22 14: U Hyaline Cast (Auto) 0 /lpf (0-5) 03/29/22 14: U Epithel Cells (Auto) 10-20 /lpf (0-5) H 03/29/22 14:22 Urine Bacteria (Auto) 4+ (Negative) H 03/29/22 14:22 Salicylates < 3.0 mg/dl (3.0-30) L 03/29/22 14:11 Urine Opiates Screen Pos (Neg) H 03/29/22 14:22 U Codeine Confrm GC/MS NEGATIVE ng/mL (<50) 03/29/22 14:22 Ur Morphine (GC/MS) NEGATIVE ng/mL (<50) 03/29/22 14:22 Ur Hydrocodone (GC/MS) 233 ng/mL (<50) H 03/29/22 14:22 Ur Norhydrocodone 515 ng/mL (<50) H 03/29/22 14:22 Ur Noroxycodone NEGATIVE ng/mL (<50) 03/29/22 14:22 Urine Oxycodone (GC/MS) NEGATIVE ng/mL (<50) 03/29/22 14:22 U Oxymorphone GC/MS NEGATIVE ng/mL (<50) 03/29/22 14:22 Ur Methadone, Qual Neg (Neg) 03/29/22 14:22 Ur Hydromorphone (GC/MS) 115 ng/mL (<50) H 03/29/22 14:22 Acetaminophen < 3 ug/ml (10-30) L 03/29/22 14:11 Urine Barbiturates Neg (Neg) 03/29/22 14:22 Ur Phencyclidine (PCP) Neg (Neg) 03/29/22 14:22 U Amphetamin/Meth Scrn Neg (Neg) 03/29/22 14:22 MDMA (Ecstasy) Screen Neg (Neg) 03/29/22 14:22 U Benzodiazepines Scrn Neg (Neg) 03/29/22 14:22 Ur Cocaine Metabolite Neg (Neg) 03/29/22 14:22 U Marijuana (THC) Screen Neg (Neg) 03/29/22 14:22 Drug Screen Comment SEE NOTE 03/29/22 14:22 Ethyl Alcohol mg/dL < 10.0 mg/dl (<10.0) 03/29/22 14:11 SARS-CoV-2, RNA, NAAT POSITIVE (NEGATIVE) A* 03/29/22 14:27 Impressions Chest X-Ray 03/29/22 13:38 XR chest 1V portable HISTORY: medical clearance COMPARISON: Chest 11/07/2021. FINDINGS: A few bibasilar linear densities consistent with subsegmental atelectasis. Otherwise, the lungs are clear. The cardiac silhouette remains borderline enlarged. No pleural effusions. No pneumothorax. Degenerative changes within the shoulders. Smooth lobular left lateral density is likely due to overlapping soft tissues. IMPRESSION: No significant change compared to the prior study. No acute process. ACT 112: Negative or not required by law. Electronically signed by: Fernando Kirkpatrick M.D. 03/29/2022 2:05 PM KUB X-Ray 03/30/22 14:14 XR KUB/Abdomen 1 view CLINICAL HISTORY: nausea, r/o ileus TECHNIQUE: 1 view of the abdomen was obtained. Comparison: Comparison is made to abdomen radiograph 07/08/2020 FINDINGS: Lung bases are unremarkable. Degenerative changes are seen in the visualized skeleton. The bowel gas pattern is nonobstructive. A moderate amount of stool is noted within the large bowel. Prostate therapy changes are seen and there is a total left hip arthroplasty. IMPRESSION: Nonobstructive bowel gas pattern. ACT 112: Negative or not required by law. Electronically signed by: Fritz Weber M.D. 03/30/2022 2:55 PM (1) Urinary tract infection Hematuria presence: without hematuria Urinary tract infection type: site unspecified Qualified Code(s): N39.0 - Urinary tract infection, site not specified
[2022-04-02] MEDS: TAMSULOSIN HCL 0.4 MG CAP PO SCH (18:14)
[2022-04-02] MEDS: PRAVASTATIN SOD 20 MG TAB PO SCH (21:53)
[2022-04-02] MEDS: FAMOTIDINE 20 MG TAB PO SCH (21:53)
[2022-04-02] MEDS: ACETAMINOPHEN 325 MG TAB PO PRN (23:40)
[2022-04-03 06:32] LABS: BUN Creatinine Ratio 23.7 (10-20); Calcium 8.4 mg/dl (8.5-10.1); Creatinine Clr Calc Pharmacy 63.6 ml/min; Est GFR (African American) 65.7 ml/min; Est GFR (Non-African American) 56.7 ml/min; Potassium 4.2 mmol/L (3.5-5.1)
[2022-04-03 06:36] LABS: Basophils # (auto) 0.01 K/uL (0-0.2); Basophils % (auto) 0.2 %; Eosinophils # (auto) 0.24 K/uL (0-0.50); Eosinophils % (auto) 3.6 %; Hematocrit (blood only) 38.8 % (40.1-51.0); Immature Granulocytes # (auto) 0.04 K/uL (0.00-0.02); Immature Granulocytes % (auto) 0.6 %; Lymphocytes # (auto) 2.96 K/uL (1.2-3.4); Lymphocytes % (auto) 44.8 %; Mean Corpuscular Hemoglobin 30.4 pg (25.0-34.0); Mean Corpuscular Hgb Conc 33.5 g/dL (32.0-36.0); Mean Corpuscular Volume 90.9 fL (80.0-100.0); Mean Platelet Volume 10.8 fL (9.4-12.4); Monocytes # (auto) 0.56 K/uL (0.24-0.82); Monocytes % (auto) 8.5 %; Neutrophils # (auto) 2.79 K/uL (1.4-6.5); Neutrophils % (auto) 42.3 %; Platelet Count 150 K/uL (130-400); RDW Coefficient of Variation 13.7 % (11.5-14.5); RDW Standard Deviation 45.6 fL (36.4-46.3); Red Blood Count 4.27 M/uL (4.63-6.08)
--- NOTE | 2022-04-03 07:55 | Electrocardiogram Report ---
Test Reason : Blood Pressure : / mmHG Vent. Rate : 052 BPM Atrial Rate : 102 BPM P-R Int : 230 ms QRS Dur : 084 ms QT Int : 426 ms P-R-T Axes : 048 030 086 degrees QTc Int : 396 ms Sinus rhythm with 1st degree A-V block with Blocked Premature atrial complexes with occasional Premat ure ventricular complexes Abnormal ECG When compared with ECG of 29-MAR-2022 14:00, Premature ventricular complexes are now Present Premature atrial complexes are now Present HR has decreased by 18 bpm Confirmed by Fahad Ratliff ([id number] on 04/03/2022 7:55:29 AM Referred By: REFERRED SELF Confirmed By:Fahad Ratliff
[2022-04-03] MEDS: INSULIN ASPART PER UNIT SC SCH ×4 (08:48→22:00)
[2022-04-03] MEDS: LANTUS PER UNIT CHARGE SQ SCH ×2 (08:48→22:01)
[2022-04-03] MEDS: ENOXAPARIN INJ 40 MG/0.4 ML SYR SQ SCH (09:00)
[2022-04-03] MEDS: CARBIDOPA/LEVODOPA 25/100MG TAB PO SCH ×3 (09:01→22:03)
[2022-04-03] MEDS: ASPIRIN 81 MG ECTAB PO SCH (09:01)
[2022-04-03] MEDS: GABAPENTIN 100 MG CAP PO SCH ×2 (09:01→22:03)
[2022-04-03] MEDS: CITALOPRAM 20 MG TAB PO SCH (09:01)
[2022-04-03] MEDS: allopurinoL 300 MG TAB PO SCH (09:01)
[2022-04-03] MEDS: PANTOprazole 40 MG TAB PO SCH (09:01)
[2022-04-03] MEDS: TORSEMIDE 20 MG TAB PO SCH (09:02)
[2022-04-03] MEDS: POTASSIUM CHLORIDE 10 MEQ TABCR PO SCH (09:02)
--- NOTE | 2022-04-03 09:35 | Cardiology Consultation ---
Date of Consultation April 03, 2022 Assessment & Plan (1) Depression: (2) Urinary tract infection: (3) COVID-19: (4) CKD (chronic kidney disease), stage III: (5) History of prostate cancer: (6) Parkinsons: Plan The patient has multiple medical problems. He was admitted with a complex UTI and COVID. I reviewed his telemetry and most of the time he is in the 50s with PACs.. Nursing did indicate that he had 1 or 2 episodes of heart rates in the 30s in the field rep hours most likely when he was sleeping. You may want to consider a nocturnal pulse oximeter to exclude sleep apnea and the need for oxygen at night. I would continue to follow him on telemetry. We will following with you during his hospital stay. Of course treatment of his UTI and COVID should be continued. History of Present Illness Attending Physician: Valentin Johnson MD History of Present Illness This is an 81-year-old male patient admitted with hematuria and a UTI as well as COVID. The information is taken from the medical record. The patient also had a close friend yesterday is feeling depressed and unsure about his living conditions. No significant previous cardiac history. We were asked to see him in regard to bradycardia that occurred last night after admission. I reviewed the entire telemetry with the sewing pattern layout technician. The patient had no si gnificant bradycardic events. According to nursing early this morning he may have had some very brief episodes where his heart rates dropped into the 30s. No other significant arrhythmias. Allergies Allergy/AdvReac Type Severity Reaction Status Date / Time No Known Allergies Verified 10/26/21 03:07 Home Medications Medication Instructions Recorded Confirmed Type aspirin 81 mg tablet,delayed 81 mg PO DAILY 07/31/18 03/29/22 History release hydrocodone 10 mg-acetaminophen 1 tab PO TID PRN Severe Pain 07/31/18 03/29/22 History 325 mg tablet (Scale Score 7-10) insulin glargine 100 unit/mL (3 65 units subcut BID 07/31/18 03/29/22 History mL) subcutaneous pen (Lantus Solostar U-100 Insulin) omega 2-bff-jce-fish oil 1,000 mg 1 cap PO DAILY 07/31/18 03/29/22 History (120 mg-180 mg) capsule potassium chloride 10 mEq 10 meq PO DAILY 07/31/18 03/29/22 History tablet,extended release(part/cryst) spironolactone 25 mg tablet 12.5 mg PO DAILY 07/31/18 03/29/22 History tamsulosin 0.4 mg capsule 0.4 mg PO DAILY@1800 07/31/18 03/29/22 History metformin 500 mg tablet,extended 500 mg PO BIDM 07/07/20 03/29/22 History release 24 hr allopurinol 300 mg tablet 300 mg PO QAM 10/26/21 03/29/22 History carbidopa 25 mg-levodopa 100 mg 1 tab PO TID 10/26/21 03/29/22 History tablet empagliflozin 10 mg tablet 10 mg PO DAILY 10/26/21 03/29/22 History (Jardiance) gabapentin 100 mg capsule 100 mg PO BID 10/26/21 03/29/22 History pantoprazole 40 mg tablet,delayed 40 mg PO DAILY 10/26/21 03/29/22 History release pravastatin 20 mg tablet 20 mg PO HS 10/26/21 03/29/22 History torsemide 20 mg tablet 20 mg PO DAILY 10/26/21 03/29/22 History citalopram 20 mg tablet 20 mg PO DAILY 11/07/21 03/29/22 History famotidine 20 mg tablet 20 mg PO HS 11/07/21 03/29/22 History semaglutide 1 mg/dose (4 mg/3 mL) 1 mg subcut WK 03/29/22 03/29/22 History subcutaneous pen injector (Ozempic) Patient History Medical History (HFpEF) heart failure with preserved ejection fraction Chronic back pain Chronic diastolic heart failure CKD (chronic kidney disease), stage III Depression Diaphragmatic hernia Diverticulitis GERD (gastroesophageal reflux disease) History of prostate cancer Hyperlipidemia Hypertension Narcotic dependence Parkinsons Prostate cancer "Prostate, adenocarcinoma, cristina 3 + 3, PSA 6.66, cT1c, group I TREATMENT: Prostate seed implant - Cesium 131 - 06/30/2011 - monotherapy alone, Lupron for 6 months prior to implantation." Type 2 diabetes mellitus Venous insufficiency Surgical History History of elbow surgery ORIF of left elbow fracture in 1995 History of hip replacement History of knee replacement History of transurethral resection of prostate 2005 Status post hernia repair Family History Mother Stroke Social History Smoking Status: Former smoker Tobacco Type: Smokeless Tobacco (Dip or Chew) Second Hand Exposure: No; Hx Alcohol Use: Yes Alcohol type: beer Alcohol Intake Frequency Comment: history of daily use but now only occasional drink Hx Substance Use: No Preferred Language: Surinamese Communication Ability: Effective Retail Cashier Associate Required: No Beliefs That Will Affect Care: None marital status: / Current Living Situation: Other Current Living Situation Comment: with friends current occupational status: retired How many Children do You have: 3 Feels Safe at Home: Yes Safety Concerns: Feels Safe At This Time Assistive Devices: Hospital Bed and Walker Review of Systems Review of Systems: Review of Systems: See HPI for pertinent positives. All other 10 point review of systems are negative. Physical Exam Physical Exam: As per protocol the patient is in isolation due to COVID and therefore no exam was completed. Results & Data ([facility]) Vital Signs (Past 12 Hours) Vital Signs Temp Pulse Pulse Resp BP Pulse Ox O2 Del Method 04/03/22 08:00 36.9 C 63 20 152/72 H 93 Room Air 04/03/22 07:08 57 L 04/03/22 02:56 37 C 66 16 138/72 93 Room Air 04/03/22 00:28 74 04/02/22 22:04 Room Air Laboratory Results Laboratory Results - last 24 hr 04/02/22 04/02/22 04/02/22 11:03 11:03 11:59 WBC 9.05 RBC 4.51 L Hgb 13.7 L Hct 41.5 MCV 92.0 MCH 30.4 MCHC 33.0 RDW Std Deviation 47.1 H RDW Coeff of Faiza 13.9 Plt Count 152 MPV 11.0 Immature Gran % (Auto) 0.4 Neut % (Auto) 64.5 Lymph % (Auto) 26.7 [place] % (Auto) 6.2 Eos % (Auto) 2.1 Baso % (Auto) 0.1 Neut # (Auto) 5.83 Lymph # (Auto) 2.42 [place] # (Auto) 0.56 Eos # (Auto) 0.19 Baso # (Auto) 0.01 Immature Gran # (Auto) 0.04 H Sodium 129 L Potassium 4.5 Chloride 99 Carbon Dioxide 23 Anion Gap 7 BUN 27 H Creatinine 1.25 Est Cr Clr Drug Dosing 59.4 Est GFR ( Amer) 61.3 Est GFR (Non-Af Amer) 52.9 BUN/Creatinine Ratio 21.6 H Glucose 234 H POC Glucose 229 H Calcium 8.6 04/02/22 04/02/22 04/03/22 17:20 20:51 05:51 WBC 6.60 RBC 4.27 L Hgb 13.0 L Hct 38.8 L MCV 90.9 MCH 30.4 MCHC 33.5 RDW Std Deviation 45.6 RDW Coeff of Faiza 13.7 Plt Count 150 MPV 10.8 Immature Gran % (Auto) 0.6 Neut % (Auto) 42.3 Lymph % (Auto) 44.8 [place] % (Auto) 8.5 Eos % (Auto) 3.6 Baso % (Auto) 0.2 Neut # (Auto) 2.79 Lymph # (Auto) 2.96 [place] # (Auto) 0.56 Eos # (Auto) 0.24 Baso # (Auto) 0.01 Immature Gran # (Auto) 0.04 H Sodium Potassium Chloride Carbon Dioxide Anion Gap BUN Creatinine Est Cr Clr Drug Dosing Est GFR ( Amer) Est GFR (Non-Af Amer) BUN/Creatinine Ratio Glucose POC Glucose 216 H 140 H Calcium 04/03/22 04/03/22 05:51 08:17 WBC RBC Hgb Hct MCV MCH MCHC RDW Std Deviation RDW Coeff of Faiza Plt Count MPV Immature Gran % (Auto) Neut % (Auto) Lymph % (Auto) [place] % (Auto) Eos % (Auto) Baso % (Auto) Neut # (Auto) Lymph # (Auto) [place] # (Auto) Eos # (Auto) Baso # (Auto) Immature Gran # (Auto) Sodium 133 L Potassium 4.2 Chloride 103 Carbon Dioxide 25 Anion Gap 5 BUN 28 H Creatinine 1.18 Est Cr Clr Drug Dosing 63.6 Est GFR ( Amer) 65.7 Est GFR (Non-Af Amer) 56.7 BUN/Creatinine Ratio 23.7 H Glucose 143 H POC Glucose 145 H Calcium 8.4 L Medications Administered Current Inpatient Medications Acetaminophen (Acetaminophen 325 Mg Tab) 650 mg PO Q6H PRN PRN Reason: Pain 1-6 or Fever Stop: 04/28/22 18:59 Last Admin: 04/02/22 23:40 Dose: 650 mg Hydrocodone Bitart/Acetaminophen (Hydrocodone/Acetaminophen 10/325 Tab) 1 tab PO TID PRN PRN Reason: Severe Pain (Scale Score 7-10) Stop: 04/12/22 18:59 Last Admin: 04/02/22 21:51 Dose: 1 tab Allopurinol (Allopurinol 300 Mg Tab) 300 mg PO QAM [facility] Stop: 04/29/22 08:59 Last Admin: 04/03/22 09:01 Dose: 300 mg Aspirin (Aspirin 81 Mg Ectab) 81 mg PO DAILY VAISHALI Stop: 04/29/22 08:59 Last Admin: 04/03/22 09:01 Dose: 81 mg Carbidopa/Levodopa (Carbidopa/Levodopa 25/100mg Tab) 1 tab PO TID VAISHALI Stop: 04/28/22 20:59 Last Admin: 04/03/22 09:01 Dose: 1 tab Citalopram Hydrobromide (Citalopram 20 Mg Tab) 20 mg PO DAILY VAISHALI Stop: 04/29/22 08:59 Last Admin: 04/03/22 09:01 Dose: 20 mg Dextrose (Dextrose 50% 50 Ml Syringe) 25 - 50 ml IV UD PRN; Protocol PRN Reason: Hypoglycemia Protocol Stop: 04/28/22 18:59 Enoxaparin Sodium (Enoxaparin Inj 40 Mg/0.4 Ml Syr) 40 mg SQ QAM VAISHALI Stop: 04/29/22 08:59 Last Admin: 04/03/22 09:00 Dose: 40 mg Famotidine (Famotidine 20 Mg Tab) 20 mg PO HS VAISHALI Stop: 04/28/22 20:59 Last Admin: 04/02/22 21:53 Dose: 20 mg Gabapentin (Gabapentin 100 Mg Cap) 100 mg PO BID VASIHALI Stop: 04/28/22 20:59 Last Admin: 04/03/22 09:01 Dose: 100 mg Glucagon (Glucagon For Inj 1 Mg Vial) 1 mg SQ UD PRN; Protocol PRN Reason: Hypoglycemia Protocol Stop: 04/28/22 18:59 Glucose (Glucose 40% Gel 15 Gm Tube) 15 - 30 gm PO UD PRN; Protocol PRN Reason: Hypoglycemia Protocol Stop: 04/28/22 18:59 Glucose (Glucose 10 Tab/Tube) 4 - 8 tab PO UD PRN; Protocol PRN Reason: Hypoglycemia Treatment Stop: 04/28/22 18:59 Guaifenesin/Dextromethorphan (Guaifenesin/Dextrom Syrup 100mg/10mg 5ml Udc) 5 ml PO Q6H PRN PRN Reason: Cough Stop: 04/30/22 08:51 Ceftriaxone Sodium 2,000 mg/ (Dextrose) 70 mls @ 100 mls/hr IV Q24H VAISHALI; Protocol Stop: 04/09/22 14:59 Last Infusion: 04/02/22 15:14 Dose: Infused Remdesivir 100 mg/ Sodium (Chloride) 250 mls @ 250 mls/hr IV Q24H VAISHALI Stop: 04/03/22 12:59 Last Infusion: 04/02/22 14:03 Dose: Infused Insulin Aspart (Insulin Aspart Per Unit) 0 units SC ACHS VAISHALI Stop: 04/28/22 20:59 Last Admin: 04/03/22 08:48 Dose: 2 units Insulin Glargine (Lantus Per Unit Charge) 10 units SQ BID VAISHALI Stop: 04/28/22 20:59 Last Admin: 04/03/22 08:48 Dose: 10 units Menthol (Cough Drop (Sugar Free) Katie 24 Katie/1 Box) 1 katie BUCCAL Q4H PRN PRN Reason: Sore Throat Stop: 04/30/22 08:51 Last Admin: 03/31/22 09:21 Dose: 1 katie Miscellaneous (Carbohydrates For Hypoglycemia ) 15 - 30 gm PO UD PRN PRN Reason: Hypoglycemia Protocol Stop: 04/28/22 18:59 Pantoprazole Sodium (Pantoprazole 40 Mg Tab) 40 mg PO DAILY VAISHALI Stop: 04/29/22 08:59 Last Admin: 04/03/22 09:01 Dose: 40 mg Potassium Chloride (Potassium Chloride 10 Meq Tabcr) 10 meq PO DAILY VAISHALI Stop: 04/29/22 08:59 Last Admin: 04/03/22 09:02 Dose: 10 meq Pravastatin Sodium (Pravastatin Sod 20 Mg Tab) 20 mg PO HS VAISHALI Stop: 04/28/22 20:59 Last Admin: 04/02/22 21:53 Dose: 20 mg Tamsulosin HCl (Tamsulosin Hcl 0.4 Mg Cap) 0.4 mg PO DAILY@1800 [facility] Stop: 04/28/22 18:59 Last Admin: 04/02/22 18:14 Dose: 0.4 mg Torsemide (Torsemide 20 Mg Tab) 20 mg PO DAILY [facility] Stop: 05/03/22 08:59 Last Admin: 04/03/22 09:02 Dose: 20 mg (1) Urinary tract infection Hematuria presence: without hematuria Urinary tract infection type: site unspecified Qualified Code(s): N39.0 - Urinary tract infection, site not specified
[2022-04-03] MEDS: REMDESIVIR 100 MG in SODIUM CHLORIDE 0.9% 230 ML IV SCH (12:14)
--- NOTE | 2022-04-03 13:12 | Hospitalist Progress Note ---
Date of Service April 03, 2022 Assessment & Plan (1) Urinary tract infection: Plan: Complicated UTI Urine culture: Klebsiella pneumonia; sensitive to ceftriaxone Continue ceftriaxone IV day #6 Continue Fuentes catheter for now Urology consulted given his history of prostate cancer; recommend to maintain Fuentes for 7 to 10 days and outpatient follow-up for voiding trial. Plan to give antibiotics for total of 7 to 10 days as well. (2) PARMJIT (acute kidney injury): Plan: Resolved, Creatinine down trended from 1.78 to 1.23; same as baseline. (3) Acute urinary retention: Plan: See plan for #1 (4) COVID-19: Plan: No hypoxia Chest x-ray: No pneumonia Status post 5 days of remdesivir Incentive spirometry ordered On Lovenox subcu for DVT prophylaxis (5) Sinus bradycardia: Plan: Telemetry on the night of 04/02 and morning of 04/03 showed episode of sinus bradycardia with heart rate in late 30s and 40s. Patient asymptomatic throughout. Cardiology consulted; nocturnal pulse ox ordered. (6) Type 2 diabetes mellitus: Plan: Last A1c on 02/24/22 9.4. Pt was on Trulicity but in the process of being phillip ged to [facility] due to backorder issues. Prior auth in process - Baseline insulin and sliding scale - Diabetic diet - Accuchecks (7) History of prostate cancer: (8) (HFpEF) heart failure with preserved ejection fraction: Plan: Euvolemic; started on home diuretics (9) Parkinsons: Plan: - Continue Sinemet (10) Ambulatory dysfunction: Plan: - PT/OT evaluation recommended rehab. Discussed with patient; agreeable for rehab. Referral sent to [facility]. (11) Depression: Plan: On citalopram as outpatient Plan DVT Prophylaxis: Lovenox Code Status: DNR/DNI per pt's brother Zuhair Merritt Disposition PT/OT evaluation recommended rehab. Discussed with patient; agreeable for rehab. Referral sent to [facility]. Admission and Anticipated Discharge Date Admission Date: March 29, 2022 Subjective Patient seen and examined at bedside. He is sitting up on the bed comfortably; not in any distress. No fever, chills, chest pain or shortness of breath. Telemetry shows periods of sinus bradycardia in high 30s with PACs; no pauses. Review of Systems Review of Systems: All systems reviewed & are unremarkable except as noted in Subjective Physical Exam Physical Exam: Constitutional: WD/WN, vitals as above, NAD, sitting up in bed, pleasant, conversing easily Respiratory: normal respiratory effort, lungs clear to auscultation, no wheeze, rales, rhonchi. Normal insp/exp effort, no accessory muscle use Cardiovascular: RRR, no murmur, no edema Vessels: no JVD or carotid bruit Chest: normal inspection of chest Abdomen: normal bowel sounds, soft, nontender, no hepatosplenomegaly. Fuentes in place draining clear urine. Musculoskeletal: no cyanosis or clubbing, extremities motor strength 5/5 Skin: no rashes, warm and dry normal turgor Neurologic: PERRL, EOMI, accommodation nl, no face palsy, no dysarthria CN's II- XI intact bilaterally and moves all extremities Psychiatric: A+Ox3, euthymic affect Lymphatic: no cervical or axillary lymphadenopathy : deferred Results & Data Results & Data ([facility]) Vital Signs (Past 12 Hours) Vital Signs Temp Pulse Pulse Resp BP Pulse Ox O2 Del Method 04/03/22 10:09 Room Air 04/03/22 08:00 36.9 C 63 20 152/72 H 93 Room Air 04/03/22 07:08 57 L 04/03/22 02:56 37 C 66 16 138/72 93 Room Air Laboratory Results Laboratory Results WBC 6.60 K/ul (4.8-10.8) 04/03/22 05:51 RBC 4.27 M/uL (4.63-6.08) L 04/03/22 05:51 Hgb 13.0 g/dl (14.0-18.0) L 04/03/22 05:51 Hct 38.8 % (40.1-51.0) L 04/03/22 05:51 MCV 90.9 fL (80.0-100.0) 04/03/22 05:51 MCH 30.4 pg (25.0-34.0) 04/03/22 05:51 MCHC 33.5 g/dL (32.0-36.0) 04/03/22 05:51 RDW Std Deviation 45.6 fL (36.4-46.3) 04/03/22 05:51 RDW Coeff of Faiza 13.7 % (11.5-14.5) 04/03/22 05:51 Plt Count 150 K/uL (130-400) 04/03/22 05:51 MPV 10.8 fL (9.4-12.4) 04/03/22 05:51 Immature Gran % (Auto) 0.6 % 04/03/22 05:51 Neut % (Auto) 42.3 % 04/03/22 05:51 Lymph % (Auto) 44.8 % 04/03/22 05:51 [place] % (Auto) 8.5 % 04/03/22 05:51 Eos % (Auto) 3.6 % 04/03/22 05:51 Baso % (Auto) 0.2 % 04/03/22 05:51 Neut # (Auto) 2.79 K/uL (1.4-6.5) 04/03/22 05:51 Lymph # (Auto) 2.96 K/uL (1.2-3.4) 04/03/22 05:51 [place] # (Auto) 0.56 K/uL (0.24-0.82) 04/03/22 05:51 Eos # (Auto) 0.24 K/uL (0-0.50) 04/03/22 05:51 Baso # (Auto) 0.01 K/uL (0-0.2) 04/03/22 05:51 Immature Gran # (Auto) 0.04 K/uL (0.00-0.02) H 04/03/22 05:51 PT 10.9 Seconds (9.0-12.0) 03/29/22 13:34 INR 1.0 (0.9-1.1) 03/29/22 13:34 APTT 30.0 Seconds (21.0-31.0) 03/29/22 13:34 PTT Ratio 1.1 03/29/22 13:34 Sodium 133 mmol/L (136-145) L 04/03/22 05:51 Potassium 4.2 mmol/L (3.5-5.1) 04/03/22 05:51 Chloride 103 mmol/L (98-107) 04/03/22 05:51 Carbon Dioxide 25 mmol/L (21-32) 04/03/22 05:51 Anion Gap 5 (3-11) 04/03/22 05:51 BUN 28 mg/dl (6-23) H 04/03/22 05:51 Creatinine 1.18 mg/dl (0.6-1.4) 04/03/22 05:51 Est Cr Clr Drug Dosing 63.6 ml/min 04/03/22 05:51 Est GFR ( Amer) 65.7 ml/min 04/03/22 05:51 Est GFR (Non-Af Amer) 56.7 ml/min 04/03/22 05:51 BUN/Creatinine Ratio 23.7 (10-20) H 04/03/22 05:51 Glucose 143 mg/dl (70-99(Fasting)) H 04/03/22 05:51 POC Glucose 205 mg/dl (70-99) H 04/03/22 11:51 Calcium 8.4 mg/dl (8.5-10.1) L 04/03/22 05:51 Magnesium 2.2 mg/dl (1.7-2.4) 03/29/22 13:34 Total Bilirubin 0.5 mg/dl (0.2-1.0) 04/01/22 08:03 Direct Bilirubin 0.1 mg/dl (0-0.2) 04/01/22 08:03 AST 69 U/L (13-39) H 04/01/22 08:03 ALT 29 U/L (7-52) 04/01/22 08:03 Alkaline Phosphatase 134 U/L (34-104) H 04/01/22 08:03 Total Creatine Kinase 51 U/L (30-223) 03/29/22 13:34 Troponin I High Sens 11.5 pg/ml (0-20) 03/29/22 13:34 Total Protein 6.5 gm/dl (6.0-8.3) 04/01/22 08:03 Albumin 3.3 gm/dl (3.4-5.0) L 04/01/22 08:03 Globulin 3.7 gm/dl (2.5-4.0) 03/29/22 13:34 Albumin/Globulin Ratio 1.1 (0.9-2) 03/29/22 13:34 Lipase 21 U/L (11-82) 03/29/22 13:34 Urine Color Yellow 03/29/22 14:22 Urine Appearance Turbid (Clear) A 03/29/22 14: Urine pH 6.0 (4.5-7.5) 03/29/22 14:22 Ur Specific [place] 1.020 (1.000-1.030) 03/29/22 14:22 Urine Protein Trace (Negative) H 03/29/22 14:22 Urine Glucose (UA) 3+ (Negative) H 03/29/22 14:22 Urine Ketones Negative (Negative) 03/29/22 14: Urine Blood 2+ (Negative) H 03/29/22 14:22 Urine Nitrite Negative (Negative) 03/29/22 14: Urine Bilirubin Negative (Negative) 03/29/22 14: Urine Urobilinogen Negative (Negative) 03/29/22 14: Ur Leukocyte Esterase 3+ (Negative) H 03/29/22 14:22 Urine WBC (Auto) >30 /hpf (0-5) H 03/29/22 14:22 Urine RBC (Auto) 5-10 /hpf (0-4) H 03/29/22 14:22 U Hyaline Cast (Auto) 0 /lpf (0-5) 03/29/22 14:22 U Epithel Cells (Auto) 10-20 /lpf (0-5) H 03/29/22 14:22 Urine Bacteria (Auto) 4+ (Negative) H 03/29/22 14: Salicylates < 3.0 mg/dl (3.0-30) L 03/29/22 14:11 Urine Opiates Screen Pos (Neg) H 03/29/22 14:22 U Codeine Confrm GC/MS NEGATIVE ng/mL (<50) 03/29/22 14:22 Ur Morphine (GC/MS) NEGATIVE ng/mL (<50) 03/29/22 14:22 Ur Hydrocodone (GC/MS) 233 ng/mL (<50) H 03/29/22 14:22 Ur Norhydrocodone 515 ng/mL (<50) H 03/29/22 14:22 Ur Noroxycodone NEGATIVE ng/mL (<50) 03/29/22 14:22 Urine Oxycodone (GC/MS) NEGATIVE ng/mL (<50) 03/29/22 14:22 U Oxymorphone GC/MS NEGATIVE ng/mL (<50) 03/29/22 14:22 Ur Methadone, Qual Neg (Neg) 03/29/22 14:22 Ur Hydromorphone (GC/MS) 115 ng/mL (<50) H 03/29/22 14:22 Acetaminophen < 3 ug/ml (10-30) L 03/29/22 14:11 Urine Barbiturates Neg (Neg) 03/29/22 14:22 Ur Phencyclidine (PCP) Neg (Neg) 03/29/22 14:22 U Amphetamin/Meth Scrn Neg (Neg) 03/29/22 14:22 MDMA (Ecstasy) Screen Neg (Neg) 03/29/22 14:22 U Benzodiazepines Scrn Neg (Neg) 03/29/22 14:22 Ur Cocaine Metabolite Neg (Neg) 03/29/22 14:22 U Marijuana (THC) Screen Neg (Neg) 03/29/22 14:22 Drug Screen Comment SEE NOTE 03/29/22 14:22 Ethyl Alcohol mg/dL < 10.0 mg/dl (<10.0) 03/29/22 14:11 SARS-CoV-2, RNA, NAAT POSITIVE (NEGATIVE) A* 03/29/22 14:27 Impressions Chest X-Ray 03/29/22 13:38 XR chest 1V portable HISTORY: medical clearance COMPARISON: Chest 11/07/2021. FINDINGS: A few bibasilar linear densities consistent with subsegmental atelectasis. Otherwise, the lungs are clear. The cardiac silhouette remains borderline enlarged. No pleural effusions. No pneumothorax. Degenerative changes within the shoulders. Smooth lobular left lateral density is likely due to overlapping soft tissues. IMPRESSION: No significant change compared to the prior study. No acute process. ACT 112: Negative or not required by law. Electronically signed by: Fernando Kirkpatrick M.D. 03/29/2022 2:05 PM KUB X-Ray 03/30/22 14:14 XR KUB/Abdomen 1 view CLINICAL HISTORY: nausea, r/o ileus TECHNIQUE: 1 view of the abdomen was obtained. Comparison: Comparison is made to abdomen radiograph 07/08/2020 FINDINGS: Lung bases are unremarkable. Degenerative changes are seen in the visualized skeleton. The bowel gas pattern is nonobstructive. A moderate amount of stool is noted within the large bowel. Prostate therapy changes are seen and there is a total left hip arthroplasty. IMPRESSION: Nonobstructive bowel gas pattern. ACT 112: Negative or not required by law. Electronically signed by: Fritz Weber M.D. 03/30/2022 2:55 PM (1) Urinary tract infection Hematuria presence: without hematuria Urinary tract infection type: site uns pecified Qualified Code(s): N39.0 - Urinary tract infection, site not specified
[2022-04-03] MEDS: cefTRIAXone SODIUM 2,000 MG in DEXTROSE 5% 50 ML IV SCH (15:11)
[2022-04-03] MEDS: TAMSULOSIN HCL 0.4 MG CAP PO SCH (17:57)
[2022-04-03] MEDS: HYDROcodone/ACETAMINOPHEN 10/325 TAB PO PRN (22:01)
[2022-04-03] MEDS: FAMOTIDINE 20 MG TAB PO SCH (22:03)
[2022-04-03] MEDS: PRAVASTATIN SOD 20 MG TAB PO SCH (22:03)
[2022-04-04 06:36] LABS: Basophils # (auto) 0.02 K/uL (0-0.2); Basophils % (auto) 0.3 %; Eosinophils # (auto) 0.21 K/uL (0-0.50); Eosinophils % (auto) 3.2 %; Hematocrit (blood only) 37.7 % (40.1-51.0); Immature Granulocytes # (auto) 0.05 K/uL (0.00-0.02); Immature Granulocytes % (auto) 0.8 %; Lymphocytes # (auto) 2.82 K/uL (1.2-3.4); Lymphocytes % (auto) 43.5 %; Mean Corpuscular Hemoglobin 30.5 pg (25.0-34.0); Mean Corpuscular Hgb Conc 34.5 g/dL (32.0-36.0); Mean Corpuscular Volume 88.5 fL (80.0-100.0); Mean Platelet Volume 10.9 fL (9.4-12.4); Monocytes # (auto) 0.59 K/uL (0.24-0.82); Monocytes % (auto) 9.1 %; Neutrophils % (auto) 43.1 %; Platelet Count 157 K/uL (130-400); RDW Coefficient of Variation 13.7 % (11.5-14.5); RDW Standard Deviation 44.2 fL (36.4-46.3); Red Blood Count 4.26 M/uL (4.63-6.08); White Blood Count 6.49 K/ul (4.8-10.8)
[2022-04-04 07:00] LABS: BUN Creatinine Ratio 27.7 (10-20); Calcium 8.6 mg/dl (8.5-10.1); Creatinine Clr Calc Pharmacy 65.5 ml/min; Est GFR (Non-African American) 60.4 ml/min; Potassium 4.1 mmol/L (3.5-5.1)
[2022-04-04] MEDS: HYDROcodone/ACETAMINOPHEN 10/325 TAB PO PRN (08:10)
[2022-04-04] MEDS: ENOXAPARIN INJ 40 MG/0.4 ML SYR SQ SCH (08:10)
[2022-04-04] MEDS: POTASSIUM CHLORIDE 10 MEQ TABCR PO SCH (08:10)
[2022-04-04] MEDS: TORSEMIDE 20 MG TAB PO SCH (08:11)
[2022-04-04] MEDS: CARBIDOPA/LEVODOPA 25/100MG TAB PO SCH ×2 (08:11→14:34)
[2022-04-04] MEDS: ASPIRIN 81 MG ECTAB PO SCH (08:11)
[2022-04-04] MEDS: CITALOPRAM 20 MG TAB PO SCH (08:11)
[2022-04-04] MEDS: PANTOprazole 40 MG TAB PO SCH (08:11)
[2022-04-04] MEDS: allopurinoL 300 MG TAB PO SCH (08:11)
[2022-04-04] MEDS: GABAPENTIN 100 MG CAP PO SCH (08:11)
[2022-04-04] MEDS: INSULIN ASPART PER UNIT SC SCH ×2 (09:36→12:38)
[2022-04-04] MEDS: LANTUS PER UNIT CHARGE SQ SCH (09:37)
[2022-04-04] MEDS ORDERED: NYSTATIN CR 15 GM TUBE EXT SCH (10:30)
--- NOTE | 2022-04-04 13:26 | Discharge Summary ---
Date of Service April 04, 2022 Admission HPI Per Admitting Provider This is an 81 y/o male with a PMH of Parkinson's disease, insulin-dependent DM, CKD3, depression, HTN, chronic pain on chronic narcotics, dyslipidemia, GERD, prostate cancer s/p TURP, GERD, venous insufficiency, and diastolic dysfunction who presented to the ED today with increasing confusion and weakness. History from the patient is somewhat limited so additional history obtained from chart and from pt's brother, Zuhair, by phone. Pt apparently started with blood in the urine started 2-3 weeks ago - happened almost every time he urinates. Denies passing clots. Over the past few days, he has developed urgency with episodes of urinary incontinence. Associated abdominal distention but denies nausea, vomiting, abdominal pain. No fevers, chills, sweats. Hx of UTIs previously - similar symptoms but current episode not as severe. Also c/o cough for the last few days and associated fatigue. He has declined COVID vaccination. Today, he was having trouble ambulating so brought to ED for evaluation. Pt also notes the loss of a close friend last night - he lives with Mitchel and Maria Dolores Cardenas. Maria Dolores last night somewhat unexpectedly so pt reports feeling sad and overwhelmed today. He is unsure of his future living situation. Family notes that he has been more depressed and irritable for the last few weeks. At times, he has verbalized wanting to but no specific plan. In the ED, he denies being suicidal. Admission Exam Per Admitting Provider Constitutional: + obese and + lethargic (but arousable); no acute distress Eyes: + anicteric sclerae ENMT: external ear and nose normal, oropharynx normal Neck: trachea midline Respiratory: no respiratory distress and no labored breathing Auscultation: + diminished lung sounds; no rales, no rhonchi and no wheezes Cardiovascular: Rate/Rhythm: regular rate and regular rhythm Vessels: radial pulses present Extremities: no pedal edema Gastrointestinal (Abdomen): Inspection/Auscultation: normal bowel sounds; abdomen not distended Percussion/Palpation: abdomen soft; abdomen nontender Musculoskeletal: Head/Neck/Chest: normocephalic, head atraumatic and neck supple Skin: no jaundice Neurologic: moves all extremities; no focal motor deficits Speech / Cognition: + abnormal speech (slowed) and + abnormal cognition (slow responses to questions, at times difficulty answering) Psychiatric: Orientation: oriented x 3 Affect: + flat affect Principal Diagnosis Complicated UTI Acute urinary retention status post Fuentes placement Acute kidney injury COVID-19 infection Discharge Exam Constitutional: WD/WN, vitals as above, NAD, sitting up in bed, pleasant, conversing easily Respiratory: normal respiratory effort, lungs clear to auscultation, no wheeze, rales, rhonchi. Normal insp/exp effort, no accessory muscle use Cardiovascular: RRR, no murmur, no edema Vessels: no JVD or carotid bruit Chest: normal inspection of chest Abdomen: normal bowel sounds, soft, nontender, no hepatosplenomegaly. Fuentes in place draining clear urine. Musculoskeletal: no cyanosis or clubbing, extremities motor strength 5/5 Skin: no rashes, warm and dry normal turgor Neurologic: PERRL, EOMI, accommodation nl, no face palsy, no dysarthria CN's II- XI intact bilaterally and moves all extremities Psychiatric: A+Ox3, euthymic affect Lymphatic: no cervical or axillary lymphadenopathy : deferred Discharge Data Allergies Allergy/AdvReac Type Severity Reaction Status Date / Time No Known Allergies Verified 10/26/21 03:07 Consultations 03/29/22 16:01 ED Decision to Admit Stat 03/30/22 14:24 Consult Urology Routine 04/03/22 08:00 Consult Cardiology Routine Hospital Course (1) Urinary tract infection: (2) PARMJIT (acute kidney injury): (3) Acute urinary retention: Patient was found to have urinary tract infection secondary to Klebsiella pneumonia. It was sensitive to ceftriaxone. Patient received 7-day of ceftriaxone during the hospitalization. He was discharged on 5 more days of Omnicef. Urology was consulted while patient was inpatient. Recommended Fuentes placement for bladder rest for 7 to 10 days. Recommend trial of void while in rehab. Follow-up with urology as outpatient. (4) COVID-19: Found to have COVID-19 infection Chest x-ray did not reveal any pneumonia Patient was given 5 days of remdesivir given his comorbid condition. (5) Sinus bradycardia: (6) Nocturnal hypoxemia: Telemetry on the night of 04/02 and morning of 04/03 showed episode of sinus bradycardia with heart rate in late 30s and 40s. Patient asymptomatic throughout. Cardiology consulted; nocturnal pulse ox showed period of hypoxia. Discussed with cardiology; started on nightly oxygen at discharge. Recommended to follow-up with primary care for sleep apnea test. (7) Type 2 diabetes mellitus: Last A1c on 02/24/22 9.4. His blood glucose was well controlled on Lantus 15 units twice daily while inpatient; dose changed during the discharge. Needs to monitor blood glucose as outpatient and titrate medication as necessary. Plan PT OT evaluation was done; recommend rehab placement. Patient discharged to [facility]. Total Time Total Time Spent Total Time Spent (In Minutes): 45 Total Time Includes: Examination of the Patient, Discharge Planning, Medication Reconciliation, Communication With Other Providers and Other Discharge Plan Discharge Items Patient Disposition: Transfer Inpatient Rehab Fac Reason For Visit: UTI, COVID Discharge Diagnosis: Complicated UTI Urinary retention status post Fuentes placement Acute kidney injury COVID-19 infection Activity: Resume your previous activity Non-emergency contact: Primary Care Provider Call non-emergency contact if: you have any medication questions and your symptoms worsen Follow-up/Referrals: Latha Gómez, [Primary Care Provider] - Diet: Carb Consistent or DM2 Addtl Attending Provider Instructions: You were admitted here with urinary tract infection. You are treated with IV antibiotics for 6 days. You are prescribed Omnicef 300 mg twice daily for 5 more days. You have a Fuentes catheter placed due to urinary retention. Do trial of void in the rehab tomorrow. He will also follow-up with urology as outpatient. You will receive a call from them. Based on the blood sugar during your hospitalization, your Lantus dose was decreased from 65 units twice daily to 15 units twice daily. Please continue to monitor your blood glucose. The dose might need to be adjusted based on your blood sugar levels. During the hospitalization, you were found to have low oxygen during the night. Please wear 2 L of oxygen at night. You will need to follow-up with her primary care doctor for sleep apnea test for obstructive sleep apnea. You have been prescribed nystatin cream to be applied in the groin area where you have redness. You were found to have COVID-19 infection. You were treated with remdesivir for 5 days Pending Studies at Discharge: No Stand-Alone Forms: My [facility] Skilled Items Patient informed of condition?: Yes DNR: Yes Discharge Level of Care: Acute rehab Communicable Disease: No Discharge Prognosis: Stable Lines: None Urinary Catheter: Yes Medications and DC Order Prescriptions: New nystatin 100,000 unit/gram Cream 1 applic EXT BID Qty: 30 0RF cefdinir 300 mg capsule 300 mg PO BID 5 Days Qty: 10 0RF Continued metformin 500 mg Tablet Extended Release 24 Hr 500 mg PO BIDM hydrocodone-acetaminophen 10-325 mg tablet 1 tab PO TID PRN (Reason: Severe Pain (Scale Score 7-10)) Rx Instructions: pain 6-10 aspirin 81 mg Tablet,Delayed Release (Dr/Ec) 81 mg PO DAILY spironolactone 25 mg tablet 12.5 mg PO DAILY tamsulosin 0.4 mg capsule 0.4 mg PO DAILY@1800 potassium chloride 10 mEq tablet,ER particles/crystals 10 meq PO DAILY omega 7-vjt-sbo-fish oil 1,000 mg (120 mg-180 mg) Capsule 1 cap PO DAILY Ozempic 1 mg/dose (4 mg/3 mL) pen injector 1 mg SUBCUT WK pantoprazole 40 mg tablet,delayed release (DR/EC) 40 mg PO DAILY allopurinol 300 mg tablet 300 mg PO QAM pravastatin 20 mg tablet 20 mg PO HS gabapentin 100 mg capsule 100 mg PO BID carbidopa-levodopa 25-100 mg tablet 1 tab PO TID torsemide 20 mg tablet 20 mg PO DAILY Rx Instructions: MAY TAKE ADDITIONAL DOSE IF WT GAIN > 5 LBS. Jardiance 10 mg tablet 10 mg PO DAILY citalopram 20 mg tablet 20 mg PO DAILY famotidine 20 mg tablet 20 mg PO HS Changed insulin glargine [Lantus Solostar U-100 Insulin] 100 unit/mL (3 mL) insulin pen 15 unit subcut BID Qty: 15 0RF Discharge Orders: Discharge Order (Routine); Ordered 04/04/22 Ordered By: Valentin Johnson Admission Data Admit Date/Time: 03/29/22 17:15 Attending Provider: Valentin Johnson Admit Provider: Alina Patrick Primary Care Provider: Latha Gómez Other Providers: Alina Patrick ; [facility] ; Pasquale Cross ; Matthew Brown ; James Tilley ; Michael Escamilla ; Freddy Hunter ; Fredis Pink ; Sofi Decker ; Rahel Rogel ; Frieda Angel. ; Caleb Blas Other Interventions: Discharge Summary Assessment (RN) Last Done: 04/04/22 12:49
[2022-04-04] MEDS: cefTRIAXone SODIUM 2,000 MG in DEXTROSE 5% 50 ML IV SCH (14:34)
== END 2022-04-04 15:14 | DRG 689 ==
LOC: ED 13:19 → 2W 17:15 → SUATTDRO 17:15 → 2W 18:15

== ENCOUNTER 2022-06-03 11:22 | Inpatient (IN) ==
[2022-06-03] MEDS ORDERED: fentaNYL citrate 100 MCG/2 ML VIAL IV PRN (11:32)
[2022-06-03] MEDS ORDERED: SODIUM CHLORIDE 0.9% 500 ML IV STA (11:32)
[2022-06-03] MEDS ORDERED: ONDANSETRON INJ 2 MG/ML 2 ML VIAL IV STA (11:32)
--- NOTE | 2022-06-03 11:36 | Emergency Department Note ---
Impression & Plan Chest pain, Abdominal pain, Urinary tract infection, Abnormal computed tomography angiography (CTA) of abdomen and pelvis ED Provider Note NAME: RALPH HAQUE AGE: 81 SEX: M : 1940 ARRIVES VIA: Ambulance INFORMANT: Patient, ED PROVIDER(S): Kurtis Valadez DO CHIEF COMPLAINT: Abdominal pain HPI: The patient is an 81-year-old male who presented to the emergency department by ambulance for evaluation of abdominal pain and chest pain. The patient describes left-sided chest pain that began this morning. He states that yesterday he started noticing left lower quadrant abdominal pain. Left lower quadrant abdominal pain is slowly been worsening. He notices nausea but no vomiting. He called 911 this morning and symptoms became worse. He was noted to have bruising in his left upper quadrant but does not remember any trauma. He denies having any fever or cough. He denies seen by his family doctor for the symptoms but called 911 to be evaluated in the emergency department. ROS: See above HPI for pertinent positives & negatives. A total of 10 systems reviewed and were otherwise negative. PAST MEDICAL HISTORY: See Below PAST SURGICAL HISTORY: See Below FAMILY HISTORY: See Below SOCIAL HISTORY: See Below HOME MEDICATIONS: See Below ALLERGIES: See Below VITALS: See Below PHYSICAL EXAMINATION: GENERAL: The patient is awake and alert. The patient is very anxious and uncomfortable. EYES: The conjunctivae are clear. The pupils are round and reactive. EARS, NOSE, MOUTH AND THROAT: The nose is without any evidence of any deformity. NECK: The neck is nontender and supple. RESPIRATORY: Normal respiratory effort is noted there is no evidence of wheezing rhonchi or rales CARDIOVASCULAR: Regular rate and rhythm noted there no murmurs rubs or gallops normal S1 normal S2. GASTROINTESTINAL: The abdomen was soft and distended. There is left-sided tenderness to palpation which is moderate. MUSCULOSKELETAL/EXTREMITIES: There is no evidence of gross deformity full range of motion is noted in the hips and shoulders. SKIN: Skin is warm and dry. Pedal edema was noted bilaterally. NEUROLOGIC: Patient is awake alert and oriented x3. MEDICAL DECISION MAKING: The patient is an 81-year-old male who presented to the emergency department for an evaluation of abdominal pain and chest pain. The patient appears to have reproducible abdominal pain and also reproducible chest pain. He had pain over the rib cage which was also ecchymotic. There is no known trauma. For this reason further laboratory and radiographic studies were obtained to determine the cause of the patient's pain. I discussed patient's laboratory and radiographic studies with him. Radiographic studies appear to be consistent with some underlying pathology which could be related to metastatic cancer or blood related cancer. Given the patient's ongoing symptoms he was offered something for pain but did not wish to have it. [facility] have agreed to evaluate the patient in the emergency department for further management and disposition. Triage Nursing notes reviewed. Prior medical records reviewed Vital Signs: reviewed and remarkable for elevated blood pressure. Differential diagnosis: Etiologies such as appendicitis, diverticulitis, obstruction, inflammatory bowel disease, renal colic, PUD, biliary pathology, pancreatitis, mesenteric ischemia, aortic pathology, infections, genitourinary, UTI, perforated viscus, as well as others were entertained. ER treatment provided: See below Diagnostics interpreted by me: ECG: EKG was obtained in the emergency department. My interpretation is normal sinus rhythm at 67 bpm. There is no ectopy. There is no acute ST segment abnormalities noted. This was compared to a tracing from April 03, 2022. No changes were noted. Cardiac Monitoring: An order was placed for continuous cardiac monitoring. The monitor shows a rate of 61 bpm with sinus rhythm. Laboratory studies: As stated above and show below. Imaging studies: See below. Radiographic imaging was reviewed by myself Consultation(s): I discussed this case with Vale who [facility]. Past Med/Surg History Medical History (HFpEF) heart failure with preserved ejection fraction PARMJIT (acute kidney injury) Chronic back pain Chronic diastolic heart failure CKD (chronic kidney disease), stage III COVID-19 Depression Diaphragmatic hernia Diverticulitis GERD (gastroesophageal reflux disease) History of prostate cancer Hyperlipidemia Hypertension Narcotic dependence Parkinsons Prostate cancer "Prostate, adenocarcinoma, cristina 3 + 3, PSA 6.66, cT1c, group I TREATMENT: Prostate seed implant - Cesium 131 - 06/30/2011 - monotherapy alone, Lupron for 6 months prior to implantation." Type 2 diabetes mellitus Urinary tract infection Venous insufficiency Surgical History History of elbow surgery ORIF of left elbow fracture in 1995 History of hip replacement History of knee replacement History of transurethral resection of prostate 2005 Status post hernia repair Family History Mother Stroke Social History Smoking Status: Never smoker Tobacco Type: Smokeless Tobacco (Dip or Chew) Second Hand Exposure: No; Hx Alcohol Use: Yes Alcohol type: beer Alcohol Intake Frequency Comment: history of daily use but now only occasional drink Hx Substance Use: No Preferred Language: Kosovan Communication Ability: Effective Space Planner Required: No Beliefs That Will Affect Care: None marital status: / Current Living Situation: Other Current Living Situation Comment: with friends current occupational status: retired How many Children do You have: 3 Feels Safe at Home: Yes Assistive Devices: Hospital Bed and Walker Allergies Allergies Allergy/AdvReac Type Severity Reaction Status Date / Time No Known Allergies Verified 10/26/21 03:07 Home Meds Home Medications Medication Instructions Recorded Confirmed aspirin 81 mg tablet,delayed 81 mg PO DAILY 07/31/18 06/03/22 release hydrocodone 10 mg-acetaminophen 1 tab PO TID PRN Severe Pain 07/31/18 06/03/22 325 mg tablet (Scale Score 7-10) omega 1-kxl-yfa-fish oil 1,000 mg 1 cap PO DAILY 07/31/18 06/03/22 (120 mg-180 mg) capsule potassium chloride 10 mEq 10 meq PO DAILY 07/31/18 06/03/22 tablet,extended release(part/cryst) spironolactone 25 mg tablet 12.5 mg PO DAILY 07/31/18 06/03/22 tamsulosin 0.4 mg capsule 0.4 mg PO DAILY@1800 07/31/18 06/03/22 metformin 500 mg tablet,extended 850 mg PO BIDM 07/07/20 06/03/22 release 24 hr allopurinol 300 mg tablet 300 mg PO QAM 10/26/21 06/03/22 carbidopa 25 mg-levodopa 100 mg 1 tab PO TID 10/26/21 06/03/22 tablet empagliflozin 10 mg tablet 10 mg PO DAILY 10/26/21 06/03/22 (Jardiance) gabapentin 100 mg capsule 100 mg PO BID 10/26/21 06/03/22 pantoprazole 40 mg tablet,delayed 40 mg PO DAILY 10/26/21 06/03/22 release pravastatin 20 mg tablet 20 mg PO HS 10/26/21 06/03/22 torsemide 20 mg tablet 20 mg PO DAILY 10/26/21 06/03/22 citalopram 20 mg tablet 20 mg PO DAILY 11/07/21 06/03/22 famotidine 20 mg tablet 20 mg PO HS 11/07/21 06/03/22 dulaglutide 4.5 mg/0.5 mL 4.5 mg subcut WK 06/03/22 06/03/22 subcutaneous pen injector (Trulicity) insulin glargine 100 unit/mL (3 25 unit subcut BID 06/03/22 06/03/22 mL) subcutaneous pen (Lantus Solostar U-100 Insulin) Previous Rx's Medication Instructions Recorded nystatin 100,000 unit/gram topical 1 applic EXT BID #30 grams 04/04/22 cream Results & Data (ED) Vital Signs Vital Signs - 24 hr 06/03/22 11:32 06/03/22 11:32 06/03/22 11:38 Pulse Rate 68 68 Pulse Rate from SpO2 Sensor Pulse Rhythm Regular Regular Pulse Strength Normal Respiratory Rate 16 16 16 Respiratory Effort / Characteristics Non-Labored Non-Labored Respiratory Depth Normal Normal Respiratory Pattern Regular Regular Blood Pressure 165/93 H Blood Pressure Mean 117 Blood Pressure Position Lying Pulse Oximetry 95 95 Oxygen Delivery Method Room Air Room Air Sepsis Recent Fever Within 48 Hours No Sepsis New/Unexplained Change in Mental Status No Sepsis Action Taken by Nursing No Action Required 06/03/22 11:59 06/03/22 12:00 06/03/22 12:39 Pulse Rate 65 66 58 L Pulse Rate from SpO2 Sensor 67 67 64 Pulse Rhythm Pulse Strength Respiratory Rate 16 14 Respiratory Effort / Characteristics Respiratory Depth Respiratory Pattern Blood Pressure Blood Pressure Mean Blood Pressure Position Pulse Oximetry 94 92 95 Oxygen Delivery Method Sepsis Recent Fever Within 48 Hours Sepsis New/Unexplained Change in Mental Status Sepsis Action Taken by Nursing 06/03/22 12:40 06/03/22 12:40 06/03/22 13:00 Pulse Rate 64 60 Pulse Rate from SpO2 Sensor 65 61 Pulse Rhythm Pulse Strength Respiratory Rate 14 15 Respiratory Effort / Characteristics Respiratory Depth Respiratory Pattern Blood Pressure 149/69 H 167/77 H Blood Pressure Mean 95 107 Blood Pressure Position Pulse Oximetry 93 95 Oxygen Delivery Method Sepsis Recent Fever Within 48 Hours Sepsis New/Unexplained Change in Mental Status Sepsis Action Taken by Nursing 06/03/22 13:36 06/03/22 14:00 06/03/22 14:00 Pulse Rate 71 59 L Pulse Rate from SpO2 Sensor 71 60 Pulse Rhythm Pulse Strength Respiratory Rate 18 15 Respiratory Effort / Characteristics Respiratory Depth Respiratory Pattern Blood Pressure 141/68 H Blood Pressure Mean 92 Blood Pressure Position Pulse Oximetry 96 92 Oxygen Delivery Method Room Air Sepsis Recent Fever Within 48 Hours Sepsis New/Unexplained Change in Mental Status Sepsis Action Taken by Nursing 06/03/22 14:30 06/03/22 14:30 06/03/22 15:00 Pulse Rate 60 Pulse Rate from SpO2 Sensor 61 Pulse Rhythm Pulse Strength Respiratory Rate 13 Respiratory Effort / Characteristics Respiratory Depth Respiratory Pattern Blood Pressure 140/65 150/79 H Blood Pressure Mean 90 102 Blood Pressure Position Pulse Oximetry 96 Oxygen Delivery Method Sepsis Recent Fever Within 48 Hours Sepsis New/Unexplained Change in Mental Status Sepsis Action Taken by Nursing 06/03/22 15:00 06/03/22 15:30 06/03/22 15:31 Pulse Rate 61 72 Pulse Rate from SpO2 Sensor 61 62 Pulse Rhythm Pulse Strength Respiratory Rate 15 Respiratory Effort / Characteristics Respiratory Depth Respiratory Pattern Blood Pressure 158/98 H Blood Pressure Mean 118 Blood Pressure Position Pulse Oximetry 95 Oxygen Delivery Method Room Air Sepsis Recent Fever Within 48 Hours Sepsis New/Unexplained Change in Mental Status Sepsis Action Taken by Nursing 06/03/22 15:31 06/03/22 15:34 Pulse Rate 61 Pulse Rate from SpO2 Sensor Pulse Rhythm Pulse Strength Respiratory Rate 18 Respiratory Effort / Characteristics Respiratory Depth Respiratory Pattern Blood Pressure Blood Pressure Mean Blood Pressure Position Pulse Oximetry 97 Oxygen Delivery Method Room Air Room Air Sepsis Recent Fever Within 48 Hours Sepsis New/Unexplained Change in Mental Status Sepsis Action Taken by Care Home Medications Current Medication List: was personally reviewed by me Laboratory Data Attestation: I reviewed the patient's lab results. 06/03/22 11:00 06/03/22 11:52 Lab Results 06/03/22 06/03/22 06/03/22 Range/Units 11:00 11:00 11:52 WBC 9.28 (4.8-10.8) K/ul RBC 4.42 L (4.63-6.08) M/uL Hgb 14.0 (14.0-18.0) g/dl Hct 40.9 (40.1-51.0) % MCV 92.5 (80.0-100.0) fL MCH 31.7 (25.0-34.0) pg MCHC 34.2 (32.0-36.0) g/dL RDW Std Deviation 46.1 (36.4-46.3) fL RDW Coeff of Faiza 13.6 (11.5-14.5) % Plt Count 237 (130-400) K/uL MPV 11.1 (9.4-12.4) fL Immature Gran % (Auto) 1.3 % Neut % (Auto) 67.8 % Lymph % (Auto) 21.2 % Dillon % (Auto) 7.4 % Eos % (Auto) 1.8 % Baso % (Auto) 0.5 % Neut # (Auto) 6.28 (1.4-6.5) K/uL Lymph # (Auto) 1.97 (1.2-3.4) K/uL Dillon # (Auto) 0.69 (0.24-0.82) K/uL Eos # (Auto) 0.17 (0-0.50) K/uL Baso # (Auto) 0.05 (0-0.2) K/uL Immature Gran # (Auto) 0.12 H (0.00-0.02) K/uL Peripher Smr Path Cons Sodium 134 L (136-145) mmol/L Potassium 4.5 (3.5-5.1) mmol/L Chloride 100 (98-107) mmol/L Carbon Dioxide 27 (21-32) mmol/L Anion Gap 7 (3-11) BUN 33 H (6-23) mg/dl Creatinine 1.52 H (0.6-1.4) mg/dl Est Cr Clr Drug Dosing 41.6 ml/min Est GFR ( Amer) 48.4 ml/min Est GFR (Non-Af Amer) 41.8 ml/min BUN/Creatinine Ratio 21.7 H (10-20) Glucose 207 H (70-99(Fasting)) mg/dl Calcium 9.5 (8.5-10.1) mg/dl Total Bilirubin 0.8 (0.2-1.0) mg/dl AST 30 (13-39) U/L ALT 34 (7-52) U/L Alkaline Phosphatase 119 H (34-104) U/L Troponin I High Sens 7.8 (0-20) pg/ml Total Protein 7.2 (6.0-8.3) gm/dl Albumin 3.7 (3.4-5.0) gm/dl Globulin 3.5 (2.5-4.0) gm/dl Albumin/Globulin Ratio 1.1 (0.9-2) Lipase 19 (11-82) U/L Urine Color Urine Appearance (Clear) Urine pH (4.5-7.5) Ur Specific [place] (1.000-1.030) Urine Protein (Negative) Urine Glucose (UA) (Negative) Urine Ketones (Negative) Urine Blood (Negative) Urine Nitrite (Negative) Urine Bilirubin (Negative) Urine Urobilinogen (Negative) Ur Leukocyte Esterase (Negative) Urine WBC (Auto) (0-5) /hpf Urine RBC (Auto) (0-4) /hpf U Hyaline Cast (Auto) (0-5) /lpf U Epithel Cells (Auto) (0-5) /lpf Urine Bacteria (Auto) (Negative) SARS-CoV-2 (PCR) (Negative) Influenza Type A (PCR) (Neg) Influenza Type B (PCR) (Neg) RSV (RT-PCR) (Neg) SARS-CoV-2, RNA, NAAT (NEGATIVE) 06/03/22 06/03/22 06/03/22 Range/Units 12:09 13:15 13:34 WBC (4.8-10.8) K/ul RBC (4.63-6.08) M/uL Hgb (14.0-18.0) g/dl Hct (40.1-51.0) % MCV (80.0-100.0) fL MCH (25.0-34.0) pg MCHC (32.0-36.0) g/dL RDW Std Deviation (36.4-46.3) fL RDW Coeff of Faiza (11.5-14.5) % Plt Count (130-400) K/uL MPV (9.4-12.4) fL Immature Gran % (Auto) % Neut % (Auto) % Lymph % (Auto) % Dillon % (Auto) % Eos % (Auto) % Baso % (Auto) % Neut # (Auto) (1.4-6.5) K/uL Lymph # (Auto) (1.2-3.4) K/uL Dillon # (Auto) (0.24-0.82) K/uL Eos # (Auto) (0-0.50) K/uL Baso # (Auto) (0-0.2) K/uL Immature Gran # (Auto) (0.00-0.02) K/uL Peripher Smr Path Cons Sodium (136-145) mmol/L Potassium (3.5-5.1) mmol/L Chloride (98-107) mmol/L Carbon Dioxide (21-32) mmol/L Anion Gap (3-11) BUN (6-23) mg/dl Creatinine (0.6-1.4) mg/dl Est Cr Clr Drug Dosing ml/min Est GFR ( Amer) ml/min Est GFR (Non-Af Amer) ml/min BUN/Creatinine Ratio (10-20) Glucose (70-99(Fasting)) mg/dl Calcium (8.5-10.1) mg/dl Total Bilirubin (0.2-1.0) mg/dl AST (13-39) U/L ALT (7-52) U/L Alkaline Phosphatase (34-104) U/L Troponin I High Sens (0-20) pg/ml Total Protein (6.0-8.3) gm/dl Albumin (3.4-5.0) gm/dl Globulin (2.5-4.0) gm/dl Albumin/Globulin Ratio (0.9-2) Lipase (11-82) U/L Urine Color Yellow Urine Appearance Clear (Clear) Urine pH 5.5 (4.5-7.5) Ur Specific [place] 1.024 (1.000-1.030) Urine Protein Negative (Negative) Urine Glucose (UA) 3+ H (Negative) Urine Ketones Negative (Negative) Urine Blood 3+ H (Negative) Urine Nitrite Negative (Negative) Urine Bilirubin Negative (Negative) Urine Urobilinogen Negative (Negative) Ur Leukocyte Esterase 1+ H (Negative) Urine WBC (Auto) >30 H (0-5) /hpf Urine RBC (Auto) >30 H (0-4) /hpf U Hyaline Cast (Auto) 1-5 (0-5) /lpf U Epithel Cells (Auto) 20-30 H (0-5) /lpf Urine Bacteria (Auto) Negative (Negative) SARS-CoV-2 (PCR) NEGATIVE (Negative) Influenza Type A (PCR) Negative (Neg) Influenza Type B (PCR) Negative (Neg) RSV (RT-PCR) Negative (Neg) SARS-CoV-2, RNA, NAAT See Comment (NEGATIVE) Administered Medications Discontinued Medications Sodium Chloride (Nss) 500 mls @ 999 mls/hr IV .Q31M STA Stop: 06/03/22 12:02 Last Infusion: 06/03/22 12:12 Dose: 0 mls/hr Documented By: Admin: 06/03/22 11:41 Dose: 999 mls/hr Documented By: CHAPIN Ceftriaxone Sodium (Rocephin) 2,000 mg in 70 mls @ 140 mls/hr IV NOW STA Stop: 06/03/22 14:32 Last Infusion: 06/03/22 15:17 Dose: 0 mls/hr Documented By: Admin: 06/03/22 14:47 Dose: 140 mls/hr Documented By: CHAPIN Ondansetron HCl (Ondansetron Inj 2 Mg/Ml 2 Ml Vial) 4 mg IV NOW STA Stop: 06/03/22 11:33 Last Admin: 06/03/22 11:42 Dose: 4 mg Documented By: CHAPIN Imaging Data Radiologist's Impression: Abdomen/Pelvis CT 06/03/22 11:32 CT SCAN OF THE ABDOMEN AND PELVIS WITHOUT IV CONTRAST CLINICAL HISTORY: Left lower quadrant abdominal pain. Melanotic stool. COMPARISON STUDY: Abdominal CT dated 10/26/2021. TECHNIQUE: CT scan of the abdomen and pelvis is performed from the lung bases to the proximal femora. Images are reviewed in the axial, sagittal, and coronal planes. IV contrast was not administered for this examination. Note that the examination was performed in significantly suboptimal fashion without oral and IV contrast. There is also motion artifact, as well as streak artifact from the left arm which could not be elevated above the abdomen. A dose lowering technique was utilized adhering to the principles of ALARA. CT DOSE: 1725.01 mGy.cm FINDINGS: Lung bases: The heart is mildly enlarged and without pericardial effusion. The coronary arteries are densely calcified. The lung bases are clear noting bibasilar scarring/atelectasis. Tiny hiatal hernia. Liver: The unenhanced liver is cirrhotic in morphology and heterogeneous in attenuation. There is nodularity of the hepatic surface contour. There is no intrahepatic biliary ductal dilatation. A 2.7 cm right lobe liver lesion on image #32 of 114 is highly suggestive of metastatic disease. Gallbladder: Unremarkable. Spleen: Normal in size and attenuation. Pancreas: Unremarkable. Adrenal glands: Unremarkable. Kidneys: The unenhanced kidneys demonstrate cortical atrophy and are without hydronephrosis. There are no renal calculi identified. There is no evidence of c ontour deforming renal mass lesion. Abdominal vasculature: The abdominal aorta is normal in course and caliber noting advanced atherosclerotic calcification. Bowel: There are scattered colonic diverticula without CT evidence of acute diverticulitis. No bowel obstruction is seen. Moderate fecal retention is noted throughout the colon. The appendix is well-visualized and normal. Peritoneum: There is no intraperitoneal free air or abdominal ascites. There is a small fat-containing umbilical hernia. Lymphadenopathy: None. Pelvic viscera: Evaluation of the pelvis is degraded by streak artifact from a left hip arthroplasty. The prostate gland is enlarged and heterogeneous. Brachytherapy implants are in place. The bladder is distended, and the wall appears thickened/trabeculated indicating chronic outlet obstruction. Skeletal structures: The skeletal structures are osteopenic. There is a large expansile lesion eroding the left posterolateral 8th rib seen on axial image #75. The soft tissue component of this lesion measures 7.2 x 5.5 cm. Numerous additional subtle osteolytic lesions are suggested. There is moderate lumbosacral spondylosis. A chronic superior endplate compression deformity is seen in the body of L5. A left hip arthroplasty is in place. IMPRESSION: 1. No acute infectious or inflammatory findings are identified in the abdomen or pelvis. 2. Moderate constipation. 3. Numerous subtle osteolytic bone lesions are suggested. Additionally, there is a large destructive/expansile lesion in the left 8th rib with a large soft tissue component. This is new from 10/26/2021. Neoplasm is the diagnosis of excl usion. Myeloma with a plasmacytoma of the 8th rib could potentially have this appearance. 4. A 2.7 cm low-attenuation right lobe liver lesion is indeterminant but suspicious for neoplasm/metastatic disease. 5. Cirrhotic liver morphology. 6. Brachytherapy implants are noted in the prostate. 7. Additional findings as above. ACT 112: Positive. There are findings on this exam that require communication between the performing entity and the patient following Patient Test Result Information Act ([place] Act 112) guidelines. Electronically signed by: Miguel Bloom M.D. 06/03/2022 1:00 PM Chest X-Ray 06/03/22 11:32 XR chest 1V portable CLINICAL HISTORY: CP TECHNIQUE: Single frontal radiograph of the chest was obtained. Comparison: Comparison is made to chest radiograph 06/08/2021 FINDINGS: No lines and tubes are seen. Cardiomegaly is noted. The aortic arch is calcified. There is a left lateral soft tissue density which is more prominent than in the prior exam. Lungs are otherwise clear. No evidence of pleural effusion or pneumothorax. IMPRESSION: Left lateral soft tissue density is more prominent than in the prior exam. Although this likely represents overlying soft tissue, cross-sectional imaging can be performed to exclude pleural mass. ACT 112: Negative or not required by law. Electronically signed by: Fritz Weber M.D. 06/03/2022 12:10 PM Discharge Plan Visit Data Chief Complaint: Abdominal Pain Stated Complaint: CHEST DISCOMFORT, GI ISSUES ED Provider: Kurtis Valadez Discharge Problem: Chest pain, Abdominal pain, Urinary tract infection, Abnormal computed tomography angiography (CTA) of abdomen and pelvis Patient Disposition: Being Evaluated by Hospitalist Discharge Instructions Interventions: ED Discharge Assessment Last Done: 06/03/22 15:34 Forms Stand Alone Forms: [facility] Prescriptions Prescriptions: No Action metformin 500 mg Tablet Extended Release 24 Hr 850 mg PO BIDM hydrocodone-acetaminophen 10-325 mg tablet 1 tab PO TID PRN (Reason: Severe Pain (Scale Score 7-10)) Rx Instructions: pain 6-10 aspirin 81 mg Tablet,Delayed Release (Dr/Ec) 81 mg PO DAILY spironolactone 25 mg tablet 12.5 mg PO DAILY tamsulosin 0.4 mg capsule 0.4 mg PO DAILY@1800 potassium chloride 10 mEq tablet,ER particles/crystals 10 meq PO DAILY omega 1-bjv-gls-fish oil 1,000 mg (120 mg-180 mg) Capsule 1 cap PO DAILY nystatin 100,000 unit/gram Cream 1 applic EXT BID Qty: 30 0RF pantoprazole 40 mg tablet,delayed release (DR/EC) 40 mg PO DAILY allopurinol 300 mg tablet 300 mg PO QAM pravastatin 20 mg tablet 20 mg PO HS gabapentin 100 mg capsule 100 mg PO BID carbidopa-levodopa 25-100 mg tablet 1 tab PO TID torsemide 20 mg tablet 20 mg PO DAILY Rx Instructions: MAY TAKE ADDITIONAL DOSE IF WT GAIN > 5 LBS. Jardiance 10 mg tablet 10 mg PO DAILY citalopram 20 mg tablet 20 mg PO DAILY famotidine 20 mg tablet 20 mg PO HS Trulicity 4.5 mg/0.5 mL pen injector 4.5 mg SUBCUT WK insulin glargine [Lantus Solostar U-100 Insulin] 100 unit/mL (3 mL) insulin pen 25 unit subcut BID Referrals Referrals: Latha Gómez DO [Primary Care Provider] -
[2022-06-03 11:46] LABS: Basophils # (auto) 0.05 K/uL (0-0.2); Basophils % (auto) 0.5 %; Eosinophils # (auto) 0.17 K/uL (0-0.50); Eosinophils % (auto) 1.8 %; Hematocrit (blood only) 40.9 % (40.1-51.0); Immature Granulocytes # (auto) 0.12 K/uL (0.00-0.02); Immature Granulocytes % (auto) 1.3 %; Lymphocytes # (auto) 1.97 K/uL (1.2-3.4); Lymphocytes % (auto) 21.2 %; Mean Corpuscular Hemoglobin 31.7 pg (25.0-34.0); Mean Corpuscular Hgb Conc 34.2 g/dL (32.0-36.0); Mean Corpuscular Volume 92.5 fL (80.0-100.0); Mean Platelet Volume 11.1 fL (9.4-12.4); Monocytes # (auto) 0.69 K/uL (0.24-0.82); Monocytes % (auto) 7.4 %; Neutrophils # (auto) 6.28 K/uL (1.4-6.5); Neutrophils % (auto) 67.8 %; Platelet Count 237 K/uL (130-400); RDW Coefficient of Variation 13.6 % (11.5-14.5); RDW Standard Deviation 46.1 fL (36.4-46.3); Red Blood Count 4.42 M/uL (4.63-6.08); White Blood Count 9.28 K/ul (4.8-10.8)
--- NOTE | 2022-06-03 12:11 | XRay Report ---
XR chest 1V portable CLINICAL HISTORY: CP TECHNIQUE: Single frontal radiograph of the chest was obtained. Comparison: Comparison is made to chest radiograph 06/08/2021 FINDINGS: No lines and tubes are seen. Cardiomegaly is noted. The aortic arch is calcified. There is a left lat eral soft tissue density which is more prominent than in the prior exam. Lungs are otherwise clear. N o evidence of pleural effusion or pneumothorax. IMPRESSION: Left lateral soft tissue density is more prominent than in the prior exam. Although this likely repre sents overlying soft tissue, cross-sectional imaging can be performed to exclude pleural mass. ACT 112: Negative or not required by law. Electronically signed by: Fritz Weber M.D. 06/03/2022 12:10 PM
[2022-06-03 12:33] LABS: Albumin Globulin Ratio 1.1 (0.9-2); Albumin Level 3.7 gm/dl (3.4-5.0); BUN Creatinine Ratio 21.7 (10-20); Bilirubin,Total 0.8 mg/dl (0.2-1.0); Calcium 9.5 mg/dl (8.5-10.1); Creatinine Clr Calc Pharmacy 41.6 ml/min; Est GFR (African American) 48.4 ml/min; Est GFR (Non-African American) 41.8 ml/min; Globulin 3.5 gm/dl (2.5-4.0); Potassium 4.5 mmol/L (3.5-5.1); Total Protein 7.2 gm/dl (6.0-8.3)
[2022-06-03 12:36] LABS: Troponin I High Sensitivity 7.8 pg/ml (0-20)
--- NOTE | 2022-06-03 13:02 | CT Scan Report ---
CT SCAN OF THE ABDOMEN AND PELVIS WITHOUT IV CONTRAST CLINICAL HISTORY: Left lower quadrant abdominal pain. Melanotic stool. COMPARISON STUDY: Abdominal CT dated 10/26/2021. TECHNIQUE: CT scan of the abdomen and pelvis is performed from the lung bases to the proximal femora. Images are reviewed in the axial, sagittal, and coronal planes. IV contrast was not administered for this examination. Note that the examination was performed in significantly suboptimal fashion withou t oral and IV contrast. There is also motion artifact, as well as streak artifact from the left arm w hich could not be elevated above the abdomen. A dose lowering technique was utilized adhering to the principles of ALARA. CT DOSE: 1725.01 mGy.cm FINDINGS: Lung bases: The heart is mildly enlarged and without pericardial effusion. The coronary arteries are densely calcified. The lung bases are clear noting bibasilar scarring/atelectasis. Tiny hiatal hernia . Liver: The unenhanced liver is cirrhotic in morphology and heterogeneous in attenuation. There is nod ularity of the hepatic surface contour. There is no intrahepatic biliary ductal dilatation. A 2.7 cm right lobe liver lesion on image #32 of 114 is highly suggestive of metastatic disease. Gallbladder: Unremarkable. Spleen: Normal in size and attenuation. Pancreas: Unremarkable. Adrenal glands: Unremarkable. Kidneys: The unenhanced kidneys demonstrate cortical atrophy and are without hydronephrosis. There ar e no renal calculi identified. There is no evidence of contour deforming renal mass lesion. Abdominal vasculature: The abdominal aorta is normal in course and caliber noting advanced atheroscle rotic calcification. Bowel: There are scattered colonic diverticula without CT evidence of acute diverticulitis. No bowel obstruction is seen. Moderate fecal retention is noted throughout the colon. The appendix is well-vi sualized and normal. Peritoneum: There is no intraperitoneal free air or abdominal ascites. There is a small fat-containin g umbilical hernia. Lymphadenopathy: None. Pelvic viscera: Evaluation of the pelvis is degraded by streak artifact from a left hip arthroplasty. The prostate gland is enlarged and heterogeneous. Brachytherapy implants are in place. The bladder i s distended, and the wall appears thickened/trabeculated indicating chronic outlet obstruction. Skeletal structures: The skeletal structures are osteopenic. There is a large expansile lesion erodin g the left posterolateral 8th rib seen on axial image #75. The soft tissue component of this lesion m easures 7.2 x 5.5 cm. Numerous additional subtle osteolytic lesions are suggested. There is moderate lumbosacral spondylosis. A chronic superior endplate compression deformity is seen in the body of L5. A left hip arthroplasty is in place. IMPRESSION: 1. No acute infectious or inflammatory findings are identified in the abdomen or pelvis. 2. Moderate constipation. 3. Numerous subtle osteolytic bone lesions are suggested. Additionally, there is a large destructive/ expansile lesion in the left 8th rib with a large soft tissue component. This is new from 10/26/2021. N eoplasm is the diagnosis of exclusion. Myeloma with a plasmacytoma of the 8th rib could potentially h ave this appearance. 4. A 2.7 cm low-attenuation right lobe liver lesion is indeterminant but suspicious for neoplasm/meta static disease. 5. Cirrhotic liver morphology. 6. Brachytherapy implants are noted in the prostate. 7. Additional findings as above. ACT 112: Positive. There are findings on this exam that require communication between the performing entity and the patient following Patient Test Result Information Act ([place] Act 112) guidelines. Electronically signed by: Miguel Bloom M.D. 06/03/2022 1:00 PM
--- NOTE | 2022-06-03 13:28 | Electrocardiogram Report ---
Test Reason : Blood Pressure : / mmHG Vent. Rate : 067 BPM Atrial Rate : 067 BPM P-R Int : 166 ms QRS Dur : 082 ms QT Int : 408 ms P-R-T Axes : -15 028 057 degrees QTc Int : 431 ms Normal sinus rhythm Normal ECG When compared with ECG of 03-APR-2022 05:40, Premature ventricular complexes are no longer Present Premature atrial complexes are no longer Present FL interval has decreased Confirmed by Fahad Ratliff ([id number]) on 06/03/2022 1:28:09 PM Referred By: Confirmed By:Fahad Ratliff
[2022-06-03 13:56] LABS: Appearance Urine Clear (Clear); Bacteria Urine Automated Negative (Negative); Bilirubin Urine Negative (Negative); Blood Urine 3+ (Negative); Color Urine Yellow; Epithelial Cell Urine Auto 20-30 /lpf (0-5); Glucose Urine UA 3+ (Negative); Ketones Urine Negative (Negative); Leukocyte Esterase Urine 1+ (Negative); Nitrite Urine Negative (Negative); Protein Urine Negative (Negative); RBC Urine Automated >30 /hpf (0-4); Specific Gravity Urine 1.024 (1.000-1.030); Urobilinogen Urine Negative (Negative); WBC Urine Automated >30 /hpf (0-5); pH Urine 5.5 (4.5-7.5)
[2022-06-03] MEDS ORDERED: cefTRIAXone SODIUM 2,000 MG/70 ML BAG IV STA (14:03)
[2022-06-03 14:16] LABS: Influenza A virus by PCR Negative (Neg); Influenza B virus by PCR Negative (Neg); RSV by PCR Negative (Neg); SARS CoV2 RNA(COVID-19) Ceph NEGATIVE (Negative)
--- NOTE | 2022-06-03 14:34 | History & Physical Report ---
Date of Service June 03, 2022 Assessment & Plan (1) Rib pain on left side: (2) Abdominal pain: (3) Abnormal computed tomography angiography (CTA) of abdomen and pelvis: (4) Complicated UTI (urinary tract infection): (5) Parkinsons: (6) Diabetes mellitus, type II: (7) (HFpEF) heart failure with preserved ejection fraction: (8) CKD (chronic kidney disease), stage III: (9) History of prostate cancer: (10) Chronic back pain: (11) Nocturnal hypoxemia: Plan This is an 78-year-old male with PMH of type 2 diabetes, Parkinson's disease, diastolic dysfunction, hypertension, CKD 3, chronic lower back pain with narcotic dependence, depression, history of prostate cancer, nocturnal hypoxemia not on oxygen and other medical problems listed below who presents with left- sided chest and lower abdominal pain. Left sided rib pain with bony prominence Abnormal presence of lytic lesion findings on CT abdomen pelvis Left sided abdominal pain x 6 weeks now reaching chest wall with associated decreased appetite and nausea CT abdomen pelvis with: 1.No acute infectious or inflammatory findings are identified in the abdomen or pelvis. 2. Moderate constipation. 3. Numerous subtle osteolytic bone lesions are suggested. Additionally, there is a large destructive/expansile lesion in the left 8th rib with a large soft tissue component. This is new from 10/26/2021. Neoplasm is the diagnosis of exclusion. Myeloma with a plasmacytoma of the 8th rib could potentially have this appearance. 4. A 2.7 cm low-attenuation right lobe liver lesion is indeterminant but suspicious for neoplasm/metastatic disease. 5. Cirrhotic liver morphology. 6. Brachytherapy implants are noted in the prostate Concern for multiple myeloma given CT findings but protein,calcium and hemoglobin levels are normal. Creatinine elevated at 1.5 but is at patient baseline. Will order SPEP, UPEP, peripheral smear and CT chest without con also ordered for better visualization Consider inpatient oncology consult to once workup underway Pain control with home Benton 10/325 mg 3 times daily as needed severe pain. Starting bowel regimen Patient not interested in additional pain medication including lidocaine patch Complicated UTI History of prostate cancer History of Klebsiella UTI during admission 2 months ago. Recent outpatient PSA within normal range Presenting with urinary symptoms, abnormal UA. Rocephin started empirically. Follow urine culture Bladder scan PRN for retention Parkinson's disease Continue Sinemet 3 times daily, fall precautions. Ambulates with walker Type 2 diabetes A1c 9.4 in Feb 2022, repeat in AM Hold home agents, basal/bolus insulin while admitted per protocol BSG AC HS HFpEF Appears euvolemic on exam. Continue torsemide with potassium supplement, spironolactone, beta john CKD 3 Baseline Cr mid-high 1s. Currently 1.5. Continue to monitor with daily BMP Chronic back pain on narcotics Benton 10/325mg TID prn for severe pain. Uses 2x/day normally Nocturnal hypoxemia Noted on previous admission. Declines further sleep workup or supplemental oxygen DVT Ppx: SQ heparin Code status: DNR/DNI per discussion with patient PCP: Dalia Dispo: Admitted to med/tele Patient seen in collaboration with Dr. Patrick. Please see addendum. A total of [75] minutes were spent with greater than 50% of that time face to face with the patient, personally reviewing all current laboratories, imaging studies, past medication reconciliation, outpatient chart review, and discussion with specialists to collaborate care for the patient with attending. Please see attending documentation. History of Present Illness Chief Complaint: Rib pain Primary Care Provider: Latha Gómez DO This is an 78-year-old male with PMH of type 2 diabetes, Parkinson's disease, diastolic dysfunction, hypertension, CKD 3, chronic lower back pain with narcotic dependence, depression, history of prostate cancer, nocturnal hypoxemia not on oxygen and other medical problems listed below who presents with left- sided chest and lower abdominal pain. Noticed aching pain on left side of abdomen for the past 6 weeks but it is gotten progressively worse over the past few days and is now radiating up onto left chest wall. Patient came to ED for further evaluation due to concern pain was cardiac. Also endorses decreased appetite and nausea but denies any vomiting. Denies any fall or trauma to this area. Patient taking all other medications as scheduled. Lidocaine patch was trialed and did not help pain. Patient states his normal as needed Benton at home for his back pain does help pain subside for a time. Started to have urinary symptoms again over the past few days after being admitted last March for Klebsiella UTI. States he is having increased frequency and urgency as well as intermittent hematuria. Denies any fever, chills, lightheadedness, substernal chest pain, palpitations, shortness of breath, dysuria, diarrhea or constipation. Lives with his caregiver and daughter. Ambulates with a walker. Allergies Allergy/AdvReac Type Severity Reaction Status Date / Time No Known Allergies Verified 10/26/21 03:07 Home Medications Medication Instructions Recorded Confirmed Type aspirin 81 mg tablet,delayed 81 mg PO DAILY 07/31/18 06/03/22 History release hydrocodone 10 mg-acetaminophen 1 tab PO TID PRN Severe Pain 07/31/18 06/03/22 History 325 mg tablet (Scale Score 7-10) omega 2-uxu-xka-fish oil 1,000 mg 1 cap PO DAILY 07/31/18 06/03/22 History (120 mg-180 mg) capsule potassium chloride 10 mEq 10 meq PO DAILY 07/31/18 06/03/22 History tablet,extended release(part/cryst) spironolactone 25 mg tablet 12.5 mg PO DAILY 07/31/18 06/03/22 History tamsulosin 0.4 mg capsule 0.4 mg PO DAILY@1800 07/31/18 06/03/22 History metformin 500 mg tablet,extended 850 mg PO BIDM 07/07/20 06/03/22 History release 24 hr allopurinol 300 mg tablet 300 mg PO QAM 10/26/21 06/03/22 History carbidopa 25 mg-levodopa 100 mg 1 tab PO TID 10/26/21 06/03/22 History tablet empagliflozin 10 mg tablet 10 mg PO DAILY 10/26/21 06/03/22 History (Jardiance) gabapentin 100 mg capsule 100 mg PO BID 10/26/21 06/03/22 History pantoprazole 40 mg tablet,delayed 40 mg PO DAILY 10/26/21 06/03/22 History release pravastatin 20 mg tablet 20 mg PO HS 10/26/21 06/03/22 History torsemide 20 mg tablet 20 mg PO DAILY 10/26/21 06/03/22 History citalopram 20 mg tablet 20 mg PO DAILY 11/07/21 06/03/22 History famotidine 20 mg tablet 20 mg PO HS 11/07/21 06/03/22 History nystatin 100,000 unit/gram topical 1 applic EXT BID #30 grams 04/04/22 06/03/22 Rx cream dulaglutide 4.5 mg/0.5 mL 4.5 mg subcut WK 01/12/23 01/12/23 History subcutaneous pen injector (Trulicity) insulin glargine 100 unit/mL (3 25 unit subcut BID 06/03/22 06/03/22 History mL) subcutaneous pen (Lantus Solostar U-100 Insulin) Past Med/Surg History Medical History (Updated 06/03/22 @ 16:05 by Vale Maurer PA-C) (HFpEF) heart failure with preserved ejection fraction PARMJIT (acute kidney injury) Chronic back pain Chronic back pain Chronic diastolic heart failure CKD (chronic kidney disease), stage III COVID-19 Depression Diabetes mellitus, type II Diaphragmatic hernia Diverticulitis GERD (gastroesophageal reflux disease) History of prostate cancer Hyperlipidemia Hypertension Narcotic dependence Parkinsons Prostate cancer "Prostate, adenocarcinoma, cristina 3 + 3, PSA 6.66, cT1c, group I TREATMENT: Prostate seed implant - Cesium 131 - 06/30/2011 - monotherapy alone, Lupron for 6 months prior to implantation." Type 2 diabetes mellitus Urinary tract infection Venous insufficiency Surgical History History of elbow surgery ORIF of left elbow fracture in 1995 History of hip replacement History of knee replacement History of transurethral resection of prostate 2004 Status post hernia repair Family History Mother Stroke Social History Smoking Status: Former smoker Tobacco Type: Smokeless Tobacco (Dip or Chew) Second Hand Exposure: No; Hx Alcohol Use: No Hx Substance Use: No Preferred Language: Romansh Communication Ability: Effective Porcelain Finish Sprayer Required: No Beliefs That Will Affect Care: None marital status: / Current Living Situation: Family Current Living Situation Comment: with friends current occupational status: retired How many Children do You have: 3 Feels Safe at Home: Yes Safety Concerns: Feels Safe At This Time Assistive Devices: Denture - Upper, Denture - Lower and Walker Review of Systems Review of Systems: At least ten systems reviewed and negative except as noted in the HPI. Physical Exam Physical Exam: General Appearance: WD/WN, vitals as above, NAD, sitting up in bed, pleasant, conversing easily Head: normocephalic, atraumatic Eyes: normal inspection, PERRL, conjunctivae normal, anicteric sclerae ENT: external ear and nose normal, oropharynx normal Neck: normal visual inspection, trachea midline, no thyromegaly Respiratory: normal respiratory effort, lungs clear to auscultation, no wheeze, rales, rhonchi. No accessory muscle use Cardiovascular: regular rate, rhythm, no murmur, normal peripheral pulses, no BLE edema. Vessels: no JVD Chest: normal inspection of chest Abdomen/GI: normal bowel sounds, soft, nontender, no hepatosplenomegaly. + Bony prominence of anterior left ribs with associated swelling, TTP and small ecchymosis Extremities/Musculoskeletal: no cyanosis or clubbing, extremities motor strength 5/5 Neurologic: PERRL, EOMI, accommodation nl, no face palsy, no dysarthria, CN's II-XI intact bilaterally and moves all extremities Psychiatric: A+Ox3, euthymic affect Skin: no rashes, normal color, warm/dry Results & Data Results & Data ([facility]) Vital Signs (Past 12 Hours) Vital Signs Pulse Resp BP Pulse Ox O2 Del Method 06/03/22 13:36 71 18 96 Room Air 06/03/22 13:00 60 15 167/77 H 95 06/03/22 12:40 64 14 93 06/03/22 12:40 149/69 H 06/03/22 12:39 58 L 95 06/03/22 12:00 66 14 92 06/03/22 11:59 65 16 94 06/03/22 11:38 16 06/03/22 11:32 68 16 95 Room Air 06/03/22 11:32 68 16 165/93 H 95 Room Air Laboratory Results Short CBC 06/03/22 Range/Units 11:00 WBC 9.28 (4.8-10.8) K/ul Hgb 14.0 (14.0-18.0) g/dl Hct 40.9 (40.1-51.0) % Plt Count 237 (130-400) K/uL BMP 06/03/22 11:52 Sodium 134 L Potassium 4.5 Chloride 100 Carbon Dioxide 27 BUN 33 H Creatinine 1.52 H Glucose 207 H Calcium 9.5 Liver Function 06/03/22 Range/Units 11:52 Total Bilirubin 0.8 (0.2-1.0) mg/dl AST 30 (13-39) U/L ALT 34 (7-52) U/L Alkaline Phosphatase 119 H (34-104) U/L Albumin 3.7 (3.4-5.0) gm/dl Urine 06/03/22 Range/Units 13:34 Urine Color Yellow Urine Appearance Clear (Clear) Urine pH 5.5 (4.5-7.5) Ur Specific [place] 1.024 (1.000-1.030) Urine Protein Negative (Negative) Urine Glucose (UA) 3+ H (Negative) Diagnostic Findings Abdomen/Pelvis CT 06/03/22 11:32 CT SCAN OF THE ABDOMEN AND PELVIS WITHOUT IV CONTRAST CLINICAL HISTORY: Left lower quadrant abdominal pain. Melanotic stool. COMPARISON STUDY: Abdominal CT dated 10/26/2021. TECHNIQUE: CT scan of the abdomen and pelvis is performed from the lung bases to the proximal femora. Images are reviewed in the axial, sagittal, and coronal planes. IV contrast was not administered for this examination. Note that the examination was performed in significantly suboptimal fashion without oral and IV contrast. There is also motion artifact, as well as streak artifact from the left arm which could not be elevated above the abdomen. A dose lowering technique was utilized adhering to the principles of ALARA. CT DOSE: 1725.01 mGy.cm FINDINGS: Lung bases: The heart is mildly enlarged and without pericardial effusion. The coronary arteries are densely calcified. The lung bases are clear noting bibasilar scarring/atelectasis. Tiny hiatal hernia. Liver: The unenhanced liver is cirrhotic in morphology and heterogeneous in attenuation. There is nodularity of the hepatic surface contour. There is no intrahepatic biliary ductal dilatation. A 2.7 cm right lobe liver lesion on image #32 of 114 is highly suggestive of metastatic disease. Gallbladder: Unremarkable. Spleen: Normal in size and attenuation. Pancreas: Unremarkable. Adrenal glands: Unremarkable. Kidneys: The unenhanced kidneys demonstrate cortical atrophy and are without hydronephrosis. There are no renal calculi identified. There is no evidence of c ontour deforming renal mass lesion. Abdominal vasculature: The abdominal aorta is normal in course and caliber noting advanced atherosclerotic calcification. Bowel: There are scattered colonic diverticula without CT evidence of acute diverticulitis. No bowel obstruction is seen. Moderate fecal retention is noted throughout the colon. The appendix is well-visualized and normal. Peritoneum: There is no intraperitoneal free air or abdominal ascites. There is a small fat-containing umbilical hernia. Lymphadenopathy: None. Pelvic viscera: Evaluation of the pelvis is degraded by streak artifact from a left hip arthroplasty. The prostate gland is enlarged and heterogeneous. Brachytherapy implants are in place. The bladder is distended, and the wall appears thickened/trabeculated indicating chronic outlet obstruction. Skeletal structures: The skeletal structures are osteopenic. There is a large expansile lesion eroding the left posterolateral 8th rib seen on axial image #75. The soft tissue component of this lesion measures 7.2 x 5.5 cm. Numerous additional subtle osteolytic lesions are suggested. There is moderate lumbosacral spondylosis. A chronic superior endplate compression deformity is seen in the body of L5. A left hip arthroplasty is in place. IMPRESSION: 1. No acute infectious or inflammatory findings are identified in the abdomen or pelvis. 2. Moderate constipation. 3. Numerous subtle osteolytic bone lesions are suggested. Additionally, there is a large destructive/expansile lesion in the left 8th rib with a large soft tissue component. This is new from 10/26/2021. Neoplasm is the diagnosis of exclusion. Myeloma with a plasmacytoma of the 8th rib could potentially have this appearance. 4. A 2.7 cm low-attenuation right lobe liver lesion is indeterminant but suspicious for neoplasm/metastatic disease. 5. Cirrhotic liver morphology. 6. Brachytherapy implants are noted in the prostate. 7. Additional findings as above. ACT 112: Positive. There are findings on this exam that require communication between the performing entity and the patient following Patient Test Result Information Act ([place] Act 112) guidelines. Electronically signed by: Miguel Bloom M.D. 06/03/2022 1:00 PM Chest X-Ray 06/03/22 11:32 XR chest 1V portable CLINICAL HISTORY: CP TECHNIQUE: Single frontal radiograph of the chest was obtained. Comparison: Comparison is made to chest radiograph 06/08/2021 FINDINGS: No lines and tubes are seen. Cardiomegaly is noted. The aortic arch is calcified. There is a left lateral soft tissue density which is more prominent than in the prior exam. Lungs are otherwise clear. No evidence of pleural effusion or pneumothorax. IMPRESSION: Left lateral soft tissue density is more prominent than in the prior exam. Although this likely represents overlying soft tissue, cross-sectional imaging can be performed to exclude pleural mass. ACT 112: Negative or not required by law. Electronically signed by: Fritz Weber M.D. 06/03/2022 12:10 PM ECG Additional Comments: EKG personally reviewed with a flutter at [address] changes. Code Status & VTE Plan VTE Prophylaxis Plan VTE Prophylaxis will be ordered: Yes Supervising Physician Co-Signing Physician Notes I have seen and examined the patient and have discussed the case with the provider above. I agree with the assessment and plan as stated with the following exceptions. Patient is an 81-year-old man with a history of prostate cancer status post brachytherapy presenting with left lower chest pain for the past 6 weeks. It is been progressively worse and he reports it being severe overnight. He also reports some pain in his left lower extremity on the anterior side. States his pain in the left connects from his left hip to his left lower rib area. He also reports some chronic issues with urination although denies burning. It is not clear why he feels he has an infection today other than someone told him he did. On physical exam he is appearing elderly and generally weak. He is well- nourished well-developed and moderately obese. He has some tremors noted in his right hand related to Parkinson's disease. He appears in no acute distress. He is breathing comfortably. Lungs are clear to auscultation bilaterally. Cardiac exam is unremarkable. He has no evidence of ecchymosis or trauma to his left chest wall. Work-up includes imaging that reveals numerous subtle osteolytic bone lesions with a large destructive lesion in the left eighth rib with a large soft tissue component possibly consistent with a plasmacytoma. There is a two-point centimeter liver lesion suspicious for metastatic disease. CBC is WNL, Na is 134, K 4.5, Cl 100, CO2 27, BUN 33 creat 1.52. SPEP/UPEP pending. Tot protein is not elevated at 7.2. 1. possible pathologic fracture of left 8th rib with uncontrolled pain 2. h/o prostate cancer with PSA pending, last was in Mar 13 and was zero 3. DMII 4. Parkinson's 81 yo M with possible myeloma given presentation and imaging findings. Chest CT above reveals additional right humeral lesion. This in addition to tiny rib lesions and larger 8th rib lesion with fracture is concerning for underlying neoplastic process, top considerations include myeloma vs prostate cancer. Will consult oncology for additional plan regarding workup including biopsy and possible treatment strategies (? XRT). Cont supportive pain management. Possible UTI but no bacteria was seen on UA. Will ask RN to perform straight cath sample to test. Cont empiric abx pending clinical improvement as noted above. Otherwise plan as noted above. DO Darnell (1) Abdominal pain Abdominal location: left upper quadrant Qualified Code(s): R10.12 - Left upper quadrant pain
[2022-06-03] MEDS ORDERED: CARBIDOPA/LEVODOPA 25/100MG TAB PO ONE (15:45)
[2022-06-03] MEDS ORDERED: ONDANSETRON INJ 2 MG/ML 2 ML VIAL IV PRN (16:13)
[2022-06-03] MEDS ORDERED: ACETAMINOPHEN 325 MG TAB PO PRN (16:13)
--- NOTE | 2022-06-03 16:40 | CT Scan Report ---
CT OF THE CHEST WITHOUT IV CONTRAST CLINICAL HISTORY: lytic lesions on CT a/p, rib pain COMPARISON STUDY: Chest radiograph June 03, 2022. CT DOSE: 790.27 mGycm TECHNIQUE: Axial images of the chest were obtained without IV contrast. Images were reviewed in the axial, sagittal, and coronal planes. IV contrast was not administered for this examination. Automat ed exposure control was utilized for the study. A dose lowering technique was utilized adhering to t he principles of ALARA. FINDINGS: No enlarged axillary, mediastinal or hilar lymph nodes are present. There is mild cardiome brianna and moderate coronary artery calcification. No pneumothorax or pleural effusion is noted. There is no consolidation to suggest pneumonia. Note is made of an expansile destructive lesion of the late ral left eighth rib that measures 6.7 x 5.9 cm. This corresponds to the finding on prior chest radiog raph. A 1.6 cm lesion within the proximal right humeral shaft on image 43 of 326 is noted. There may be innumerable tiny lytic rib lesions. There are no suspicious pulmonary nodules. An indeterminate 2. 9 cm right hepatic lobe lesion is noted. This was depicted on abdominal CT performed earlier today. IMPRESSION: 1. 6.7 x 5.9 cm destructive expansile lesion within the lateral left eighth rib. Additional proximal right humeral diaphyseal lesion and suspected tiny lytic rib lesions. These are consistent with a marlyn plastic etiology and myeloma with plasmacytoma of the left eighth rib is a consideration. Metastatic disease could appear similar. 2. No suspicious pulmonary nodules. 3. No thoracic lymphadenopathy. 4. Indeterminate 2.9 cm right hepatic lobe lesion, as shown on abdominal CT performed earlier today. ACT 112: Negative or not required by law. Electronically signed by: Jose Ontiveros M.D. 06/03/2022 4:38 PM
[2022-06-03] MEDS ORDERED: GLUCOSE 10 TAB/TUBE PO PRN (16:51)
[2022-06-03] MEDS ORDERED: GLUCAGON FOR INJ 1 MG VIAL SQ PRN (16:51)
[2022-06-03] MEDS ORDERED: DEXTROSE 50% 50 ML SYRINGE IV PRN (16:51)
[2022-06-03] MEDS ORDERED: GLUCOSE 40% GEL 15 GM TUBE PO PRN (16:51)
[2022-06-03] MEDS ORDERED: CARBOHYDRATES FOR HYPOGLYCEMIA PO PRN (16:51)
[2022-06-03] MEDS ORDERED: INSULIN ASPART PER UNIT SC ONE (17:00)
[2022-06-03] MEDS: TAMSULOSIN HCL 0.4 MG CAP PO SCH (17:09)
[2022-06-03] MEDS: CARBIDOPA/LEVODOPA 25/100MG TAB PO SCH ×2 (17:09→21:11)
[2022-06-03 19:36] LABS: Free PSA % 111.1 %; Prostate SpecificAg Diagnostic 0.009 ng/ml (0-4)
[2022-06-03] MEDS: GABAPENTIN 100 MG CAP PO SCH (21:10)
[2022-06-03] MEDS: FAMOTIDINE 20 MG TAB PO SCH (21:11)
[2022-06-03] MEDS: HEPARIN SOD 5,000 UNIT/0.5 ML VIAL SQ SCH (21:11)
[2022-06-03] MEDS: PRAVASTATIN SOD 20 MG TAB PO SCH (21:11)
[2022-06-03] MEDS: NYSTATIN CR 15 GM TUBE EXT SCH ×2 (21:12→23:30)
[2022-06-03] MEDS: HYDROcodone/ACETAMINOPHEN 10/325 TAB PO PRN (21:22)
[2022-06-03] MEDS: INSULIN ASPART PER UNIT SC SCH (21:23)
[2022-06-03] MEDS: POLYETHYLENE (MIRALAX) 17 GM PACK PO PRN (21:23)
[2022-06-03] MEDS: LANTUS PER UNIT CHARGE SQ SCH (21:24)
[2022-06-04 01:59] LABS: Appearance Urine Clear (Clear); Bacteria Urine Automated Negative (Negative); Bilirubin Urine Negative (Negative); Blood Urine 2+ (Negative); Cast Urine Automated 0 /lpf (0-5); Color Urine Yellow; Glucose Urine UA 3+ (Negative); Ketones Urine Negative (Negative); Leukocyte Esterase Urine Negative (Negative); Nitrite Urine Negative (Negative); Protein Urine Negative (Negative); Specific Gravity Urine 1.022 (1.000-1.030); Urobilinogen Urine Negative (Negative); pH Urine 6.5 (4.5-7.5)
[2022-06-04] MEDS: HYDROcodone/ACETAMINOPHEN 10/325 TAB PO PRN ×3 (05:12→22:50)
[2022-06-04] MEDS: HEPARIN SOD 5,000 UNIT/0.5 ML VIAL SQ SCH ×3 (05:14→22:38)
[2022-06-04] MEDS: SPIRONOLACTONE 12.5 MG TAB PO SCH (07:40)
[2022-06-04] MEDS: CITALOPRAM 20 MG TAB PO SCH (07:40)
[2022-06-04] MEDS: allopurinoL 300 MG TAB PO SCH (07:40)
[2022-06-04] MEDS: GABAPENTIN 100 MG CAP PO SCH ×2 (07:40→22:37)
[2022-06-04] MEDS: PANTOprazole 40 MG TAB PO SCH (07:40)
[2022-06-04] MEDS: CARBIDOPA/LEVODOPA 25/100MG TAB PO SCH ×3 (07:40→22:37)
[2022-06-04] MEDS: ASPIRIN 81 MG ECTAB PO SCH (07:40)
[2022-06-04] MEDS: POTASSIUM CHLORIDE 10 MEQ TABCR PO SCH (07:41)
[2022-06-04] MEDS: OMEGA-3 (PURIFIED FISH OIL) 1 GM CAP PO SCH (07:41)
[2022-06-04] MEDS: TORSEMIDE 20 MG TAB PO SCH (07:41)
[2022-06-04] MEDS: cefTRIAXone SODIUM 2,000 MG in DEXTROSE 5% 50 ML IV SCH (07:47)
[2022-06-04 08:36] LABS: Hemoglobin 13.6 g/dl (14.0-18.0); Mean Corpuscular Hemoglobin 31.1 pg (25.0-34.0); Mean Corpuscular Hgb Conc 33.2 g/dL (32.0-36.0); Mean Corpuscular Volume 93.8 fL (80.0-100.0); Mean Platelet Volume 10.9 fL (9.4-12.4); Platelet Count 235 K/uL (130-400); RDW Coefficient of Variation 13.5 % (11.5-14.5); RDW Standard Deviation 46.1 fL (36.4-46.3); Red Blood Count 4.37 M/uL (4.63-6.08); White Blood Count 9.54 K/ul (4.8-10.8)
[2022-06-04] MEDS: NYSTATIN CR 15 GM TUBE EXT SCH ×2 (08:51→22:38)
[2022-06-04 08:58] LABS: BUN Creatinine Ratio 22.4 (10-20); Calcium 9.2 mg/dl (8.5-10.1); Creatinine Clr Calc Pharmacy 50.6 ml/min; Est GFR (African American) 56.4 ml/min; Est GFR (Non-African American) 48.6 ml/min; Potassium 4.4 mmol/L (3.5-5.1)
[2022-06-04] MEDS ORDERED: POLYETHYLENE (MIRALAX) 17 GM PACK PO PRN (09:00)
[2022-06-04] MEDS: INSULIN ASPART PER UNIT SC SCH ×4 (09:03→22:48)
[2022-06-04] MEDS: DOCUSATE SODIUM 100 MG CAP PO SCH ×2 (09:04→22:37)
[2022-06-04] MEDS: LANTUS PER UNIT CHARGE SQ SCH ×2 (09:04→22:48)
[2022-06-04 09:17] LABS: Estimated Average Glucose 235 mg/dl; Hemoglobin A1C 9.8 % (4.5-5.6)
--- NOTE | 2022-06-04 17:13 | Hospitalist Progress Note ---
Date of Service June 04, 2022 Assessment & Plan (1) Rib pain on left side: (2) Abdominal pain: (3) Abnormal computed tomography angiography (CTA) of abdomen and pelvis: (4) Complicated UTI (urinary tract infection): (5) Parkinsons: (6) Diabetes mellitus, type II: (7) (HFpEF) heart failure with preserved ejection fraction: (8) CKD (chronic kidney disease), stage III: (9) History of prostate cancer: (10) Chronic back pain: (11) Nocturnal hypoxemia: Plan Patient is an 78 yr old male with PMH of type 2 diabetes, Parkinson's disease, diastolic dysfunction, hypertension, CKD 3, chronic lower back pain with narcotic dependence, depression, history of prostate cancer, nocturnal hypoxemia not on oxygen and other medical problems listed below who presents with left- sided chest and lower abdominal pain. Metastatic disease Pleuritic/left rib pain secondary to above ? Primary: Prostate cancer H/O prostate cancer --CT Chest: 6.7 x 5.9 cm destructive expansile lesion within the lateral left eighth rib. Additional proximal right humeral diaphyseal lesion and suspected tiny lytic rib lesions. These are consistent with a neoplastic etiology and myeloma with plasmacytoma of the left eighth rib is a consideration. Metastatic disease could appear similar. No suspicious pulmonary nodules. No thoracic lymphadenopathy. Indeterminate 2.9 cm right hepatic lobe lesion, as shown on abdominal CT performed earlier today. --CT ABD: No acute infectious or inflammatory findings are identified in the abdomen or pelvis. Moderate constipation. Numerous subtle osteolytic bone lesions are suggested. Additionally, there is a large destructive/expansile lesion in the left 8th rib with a large soft tissue component. This is new from 10/26/2021. Neoplasm is the diagnosis of exclusion. Myeloma with a plasmacytoma of the 8th rib could potentially have this appearance. A 2.7 cm low-attenuation right lobe liver lesion is indeterminant but suspicious for neoplasm/metastatic disease. Cirrhotic liver morphology. Brachytherapy implants are noted in the prostate. -SPEP, UPEP pending -PSA 0.009, free PSA 0.01 -Consulted oncology -Pain control, incentive spirometry Suspected complicated UTI H/O prostate cancer Urine culture pending On ceftriaxone empirically Bladder scan PRN for retention Parkinson's disease Continue Sinemet fall precautions Ambulates with walker DM II HbA1c 9.8 Hold home agents Basal/bolus insulin while admitted per protocol BSG AC HS HFpEF Appears euvolemic Continue torsemide, spironolactone CKD III Baseline Cr mid-high 1s Cr at baseline Monitor renal function Chronic back pain On narcotics Nocturnal hypoxemia Noted on previous admission. Declines further sleep workup or supplemental oxygen DVT Px: SQ heparin Code status: DNR/DNI Disposition PT OT prior to discharge Admission and Anticipated Discharge Date Admission Date: June 03, 2022 Subjective Patient is seen and examined at bedside Poor historian secondary to hearing impairment States having left hip, left sided rib pain Also reports chronic generalized arthritis pain Denies any chest pain, dyspnea, dizziness, nausea, abdominal pain No other complaints Review of Systems Review of Systems: All systems reviewed & are unremarkable except as noted in Subjective Physical Exam Physical Exam: Physical Exam: Vitals signs as noted above General Appearance:Moderately built and nourished, no apparent distress, elderly Head: normocephalic, Atraumatic Eyes: normal inspection, EOMI, Neck: supple, Trachea midline Respiratory/Chest: Normal breath sounds, CTA, Rib tender, No accessory muscle use Cardiovascular: S1, S2, No murmur Abdomen/GI:Soft, Non tender, Bowel sounds present Extremities/Musculoskeletal:normal inspection, no edema Neurologic/Psych:AAOX2, grossly no focal neurological deficits, +Hearing impairment, +Resting tremor Skin: normal color, warm Results & Data Results & Data ([facility]) Vital Signs (Past 12 Hours) Vital Signs Temp Pulse Pulse Resp BP BP Pulse Ox 06/04/22 11:01 36.5 C 72 14 146/74 H 92 06/04/22 07:47 36.5 C 66 14 148/80 H 93 06/04/22 07:22 66 O2 Del Method 06/04/22 11:01 Room Air 06/04/22 07:47 Room Air 06/04/22 07:22 Laboratory Results Short CBC 06/04/22 Range/Units 07:41 WBC 9.54 (4.8-10.8) K/ul Hgb 13.6 L (14.0-18.0) g/dl Hct 41.0 (40.1-51.0) % Plt Count 235 (130-400) K/uL BMP 06/04/22 07:41 Sodium 135 L Potassium 4.4 Chloride 101 Carbon Dioxide 28 BUN 30 H Creatinine 1.34 Glucose 138 H Calcium 9.2 Urine 06/03/22 Range/Units 23:30 Urine Color Yellow Urine Appearance Clear (Clear) Urine pH 6.5 (4.5-7.5) Ur Specific [place] 1.022 (1.000-1.030) Urine Protein Negative (Negative) Urine Glucose (UA) 3+ H (Negative) (1) Abdominal pain Abdominal location: left upper quadrant Qualified Code(s): R10.12 - Left u pper quadrant pain
[2022-06-04] MEDS: TAMSULOSIN HCL 0.4 MG CAP PO SCH (17:24)
[2022-06-04] MEDS: FAMOTIDINE 20 MG TAB PO SCH (22:37)
[2022-06-04] MEDS: PRAVASTATIN SOD 20 MG TAB PO SCH (22:37)
[2022-06-04] MEDS: POLYETHYLENE (MIRALAX) 17 GM PACK PO PRN (22:51)
[2022-06-05] MEDS: HEPARIN SOD 5,000 UNIT/0.5 ML VIAL SQ SCH ×3 (04:42→22:30)
[2022-06-05 05:42] LABS: Hematocrit (blood only) 37.6 % (40.1-51.0); Hemoglobin 12.6 g/dl (14.0-18.0); Mean Corpuscular Hemoglobin 31.3 pg (25.0-34.0); Mean Corpuscular Hgb Conc 33.5 g/dL (32.0-36.0); Mean Corpuscular Volume 93.3 fL (80.0-100.0); Mean Platelet Volume 10.6 fL (9.4-12.4); Platelet Count 222 K/uL (130-400); RDW Coefficient of Variation 13.5 % (11.5-14.5); Red Blood Count 4.03 M/uL (4.63-6.08)
[2022-06-05 06:03] LABS: BUN Creatinine Ratio 20.4 (10-20); Creatinine Clr Calc Pharmacy 44.6 ml/min; Est GFR (African American) 48.4 ml/min; Est GFR (Non-African American) 41.8 ml/min; Magnesium 2.1 mg/dl (1.7-2.4); Potassium 4.2 mmol/L (3.5-5.1)
--- NOTE | 2022-06-05 08:01 | Oncology Consultation ---
Date of Consultation June 05, 2022 Assessment & Plan (1) Bone lesion: (2) Rib pain on left side: (3) Chronic back pain: (4) Liver lesion: Plan [id number]-year-old who presented with left-sided rib pain and was found to have 6.7 x 5.9 cm destructive expansile lesion within the lateral left eighth rib, proximal right humeral diaphyseal lesion, suspected tiny lytic rib lesions and possible liver lesion. He has a history of prostate cancer for which he is s/p brachytherapy. PSA checked during this admission was within normal limits -Imaging findings concerning for plasma cell dyscrasia such as multiple myeloma/plasmacytoma. Cannot also rule out primary HCC of the liver with metastasis or 2 separate primaries. -Obtain SPEP with GREG, quantitative immunoglobulins, serum free light chain, AFP and CEA (ordered) -Would recommend biopsy Of left eighth rib lesion. -Also consider MRI liver protocol to assess for primary HCC In the setting of liver cirrhosis -After biopsy has been obtained, he would probably benefit from radiation oncology evaluation for palliative radiation treatment if pain persists despite being on pain medications Thank you for this consult. Oncology continue following patient while in the hospital. Please feel free to call if any further questions History of Present Illness Reason for Consultation: Multiple lytic lesions on imaging, possible myeloma Attending Physician: Lito Arguello MD History of Present Illness 81-year-old male with medical history significant for CKD stage III, chronic lower back pain with dependence on narcotic, history of prostate cancer who presented to the [facility] on 06/03/2022 with complaints of left-sided lower chest wall/rib pain. CT abdomen and pelvis obtained on 06/03/2022 revealed numerous subtle osteolytic bone lesions, large destructive/expansile lesion in the left eighth rib with soft tissue component and 2.7 cm low-attenuation right lobe liver lesion as well as cirrhotic liver morphology. CT chest obtained on 06/03/2022 revealed 6.7 x 5.9 cm destructive expansile lesion within lateral left eighth rib as well as additional proximal right humeral diaphyseal lesion and suspected tiny lytic rib lesions consistent with neoplastic etiology and myeloma with plasmacytoma of the left eighth rib consideration. Also noted on CT chest was indeterminate 2.9 cm right hepatic lobe lesion. During my evaluation of patient today, he complains of persistent left-sided lower chest wall/rib pain. Endorses occasional shortness of breath which he associates with rib pain. Denies nausea, vomiting, abdominal pain, weight loss, fever, chills or night sweats Allergies Allergy/AdvReac Type Severity Reaction Status Date / Time No Known Allergies Verified 10/26/21 03:07 Home Medications Medication Instructions Recorded Confirmed Type aspirin 81 mg tablet,delayed 81 mg PO DAILY 07/31/18 06/03/22 History release hydrocodone 10 mg-acetaminophen 1 tab PO TID PRN Severe Pain 07/31/18 06/03/22 History 325 mg tablet (Scale Score 7-10) omega [id number]-[id number]-fish oil 1,000 mg 1 cap PO DAILY 07/31/18 06/03/22 History (120 mg-180 mg) capsule potassium chloride 10 mEq 10 meq PO DAILY 07/31/18 06/03/22 History tablet,extended release(part/cryst) spironolactone 25 mg tablet 12.5 mg PO DAILY 07/31/18 06/03/22 History tamsulosin 0.4 mg capsule 0.4 mg PO DAILY@1800 07/31/18 06/03/22 History metformin 500 mg tablet,extended 850 mg PO BIDM 07/07/20 06/03/22 History release 24 hr allopurinol 300 mg tablet 300 mg PO QAM 10/26/21 06/03/22 History carbidopa 25 mg-levodopa 100 mg 1 tab PO TID 10/26/21 06/03/22 History tablet empagliflozin 10 mg tablet 10 mg PO DAILY 10/26/21 06/03/22 History (Jardiance) gabapentin 100 mg capsule 100 mg PO BID 10/26/21 06/03/22 History pantoprazole 40 mg tablet,delayed 40 mg PO DAILY 10/26/21 06/03/22 History release pravastatin 20 mg tablet 20 mg PO HS 10/26/21 06/03/22 History torsemide 20 mg tablet 20 mg PO DAILY 10/26/21 06/03/22 History citalopram 20 mg tablet 20 mg PO DAILY 11/07/21 06/03/22 History famotidine 20 mg tablet 20 mg PO HS 11/07/21 06/03/22 History nystatin 100,000 unit/gram topical 1 applic EXT BID #30 grams 04/04/22 06/03/22 Rx cream dulaglutide 4.5 mg/0.5 mL 4.5 mg subcut WK 06/03/22 06/03/22 History subcutaneous pen injector (Trulicity) insulin glargine 100 unit/mL (3 30 unit subcut BID 06/03/22 06/04/22 History mL) subcutaneous pen (Lantus Solostar U-100 Insulin) Patient History Medical History (Updated 06/05/22 @ 09:25 by Shy Jackson MD) (HFpEF) heart failure with preserved ejection fraction PARMJIT (acute kidney injury) Chronic back pain Chronic back pain Chronic diastolic heart failure CKD (chronic kidney disease), stage III COVID-19 Depression Diabetes mellitus, type II Diaphragmatic hernia Diverticulitis GERD (gastroesophageal reflux disease) History of prostate cancer Hyperlipidemia Hypertension Narcotic dependence Parkinsons Prostate cancer "Prostate, adenocarcinoma, cristina 3 + 3, 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, cT1c, group I TREATMENT: Prostate seed implant - Cesium 131 - 06/30/2011 - monotherapy alone, Lupron for 6 months prior to implantation." Type 2 diabetes mellitus Urinary tract infection Venous insufficiency Surgical History History of elbow surgery ORIF of left elbow fracture in 1995 History of hip replacement History of knee replacement History of transurethral resection of prostate 2004 Status post hernia repair Family History Mother Stroke Social History Smoking Status: Former smoker Tobacco Type: Smokeless Tobacco (Dip or Chew) Second Hand Exposure: No; Hx Alcohol Use: No Hx Substance Use: No Preferred Language: Azeri Communication Ability: Effective Certified Professional Controller Required: No Beliefs That Will Affect Care: None marital status: / Current Living Situation: Family Current Living Situation Comment: with friends current occupational status: retired How many Children do You have: 3 Feels Safe at Home: Yes Safety Concerns: Feels Safe At This Time Assistive Devices: Denture - Upper, Denture - Lower and Walker Review of Systems Review of Systems: All systems reviewed & are unremarkable except as noted in HPI & below Physical Exam Constitutional: WD/WN, vitals as above Eyes: PERRL, conjunctivae normal, anicteric sclerae Respiratory: normal respiratory effort, lungs clear to auscultation Cardiovascular: RRR, no murmur, no edema Gastrointestinal (Abdomen): normal bowel sounds, soft, nontender, no hepatosplenomegaly Results & Data ([facility]) Vital Signs (Past 12 Hours) Vital Signs Temp Pulse Pulse Resp BP Pulse Ox O2 Del Method 06/05/22 07:43 Room Air 06/05/22 07:26 36.4 C L 61 20 158/89 H 95 Room Air 06/05/22 07:22 70 06/04/22 22:00 61 06/05/22 03:14 36.6 C 58 L 18 146/76 H 94 Room Air 06/04/22 23:11 36.5 C 72 18 166/79 H 94 Room Air 06/04/22 22:35 Room Air
[2022-06-05] MEDS: LANTUS PER UNIT CHARGE SQ SCH ×2 (08:16→22:40)
[2022-06-05] MEDS: INSULIN ASPART PER UNIT SC SCH ×4 (08:16→22:40)
[2022-06-05] MEDS: DOCUSATE SODIUM 100 MG CAP PO SCH ×2 (08:20→22:30)
[2022-06-05] MEDS: CARBIDOPA/LEVODOPA 25/100MG TAB PO SCH ×3 (08:20→22:31)
[2022-06-05] MEDS: GABAPENTIN 100 MG CAP PO SCH ×2 (08:20→22:30)
[2022-06-05] MEDS: CITALOPRAM 20 MG TAB PO SCH (08:21)
[2022-06-05] MEDS: SPIRONOLACTONE 12.5 MG TAB PO SCH (08:21)
[2022-06-05] MEDS: TORSEMIDE 20 MG TAB PO SCH (08:21)
[2022-06-05] MEDS: PANTOprazole 40 MG TAB PO SCH (08:22)
[2022-06-05] MEDS: POTASSIUM CHLORIDE 10 MEQ TABCR PO SCH (08:22)
[2022-06-05] MEDS: ASPIRIN 81 MG ECTAB PO SCH (08:22)
[2022-06-05] MEDS: allopurinoL 300 MG TAB PO SCH (08:22)
[2022-06-05] MEDS: OMEGA-3 (PURIFIED FISH OIL) 1 GM CAP PO SCH (08:22)
[2022-06-05] MEDS: NYSTATIN CR 15 GM TUBE EXT SCH ×2 (08:23→22:36)
[2022-06-05] MEDS: cefTRIAXone SODIUM 2,000 MG in DEXTROSE 5% 50 ML IV SCH (08:23)
[2022-06-05] MEDS: HYDROcodone/ACETAMINOPHEN 10/325 TAB PO PRN ×3 (08:34→22:55)
[2022-06-05 10:15] LABS: Immunoglobulin A 358.2 mg/dl (70-400); Immunoglobulin G 999.9 mg/dl (635-1741); Immunoglobulin M 54.7 mg/dl (45-281)
--- NOTE | 2022-06-05 15:18 | Hospitalist Progress Note ---
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 Metastatic disease Pleuritic/left rib pain secondary to above DD: Multiple myeloma/plasmacytoma , hepatocellular carcinoma with metastasis ? Primary: Prostate cancer H/O prostate cancer --CT Chest: 6.7 x 5.9 cm destructive expansile lesion within the lateral left eighth rib. Additional proximal right humeral diaphyseal lesion and suspected tiny lytic rib lesions. These are consistent with a neoplastic etiology and myeloma with plasmacytoma of the left eighth rib is a consideration. Metastatic disease could appear similar. No suspicious pulmonary nodules. No thoracic lymphadenopathy. Indeterminate 2.9 cm right hepatic lobe lesion, as shown on abdominal CT performed earlier today. --CT ABD: No acute infectious or inflammatory findings are identified in the abdomen or pelvis. Moderate constipation. Numerous subtle osteolytic bone lesions are suggested. Additionally, there is a large destructive/expansile lesion in the left 8th rib with a large soft tissue component. This is new from 10/26/2021. Neoplasm is the diagnosis of exclusion. Myeloma with a plasmacytoma of the 8th rib could potentially have this appearance. A 2.7 cm low-attenuation right lobe liver lesion is indeterminant but suspicious for neoplasm/metastatic disease. Cirrhotic liver morphology. Brachytherapy implants are noted in the prostate. -SPEP, UPEP pending -PSA 0.009, free PSA 0.01 -GREG, quantitative immunoglobulins, serum free light chain, AFP and CEA -Appreciate oncology input Plan for left eighth rib lesion biopsy on Tuesday Consider radiation oncology evaluation after the biopsy Pain control, incentive spirometry Suspected complicated UTI--ruled out H/O prostate cancer Urine culture: Mixed probable skin francheska Received ceftriaxone empirically Bladder scan PRN for retention Parkinson's disease Continue Sinemet fall precautions Ambulates with walker DM II HbA1c 9.8 Hold home agents Basal/bolus insulin while admitted per protocol BSG AC HS HFpEF Appears euvolemic Continue torsemide, spironolactone CKD III Baseline Cr mid-high 1s Cr at baseline Monitor renal function Chronic back pain On narcotics Nocturnal hypoxemia Noted on previous admission. Declines further sleep workup or supplemental oxygen DVT Px: SQ heparin Code status: DNR/DNI Disposition PT OT prior to discharge Admission and Anticipated Discharge Date Admission Date: June 03, 2022 Subjective Patient is seen and examined at bedside Poor historian secondary to hearing impairment Reports left sided rib pain No new complaints Denies any chest pain, dyspnea, dizziness, nausea, abdominal pain Review of Systems Review of Systems: All systems reviewed & are unremarkable except as noted in Subjective Physical Exam Physical Exam: Physical Exam: Vitals signs as noted above General Appearance:Moderately built and nourished, no apparent distress, elderly Head: normocephalic, Atraumatic Eyes: normal inspection, EOMI, Neck: supple, Trachea midline Respiratory/Chest: Normal breath sounds, CTA, Rib tender, No accessory muscle use Cardiovascular: S1, S2, No murmur Abdomen/GI:Soft, Non tender, Bowel sounds present Extremities/Musculoskeletal:normal inspection, no edema Neurologic/Psych:AAOX2, grossly no focal neurological deficits, +Hearing impairment, +Resting tremor Skin: normal color, warm Results & Data Results & Data ([facility]) Vital Signs (Past 12 Hours) Vital Signs Temp Pulse Pulse Resp BP BP Pulse Ox 06/05/22 11:32 36.6 C 65 20 147/78 H 96 06/05/22 07:43 06/05/22 07:26 36.4 C L 61 20 158/89 H 95 06/05/22 07:22 70 06/05/22 03:14 36.6 C 58 L 18 146/76 H 94 O2 Del Method 06/05/22 11:32 Room Air 06/05/22 07:43 Room Air 06/05/22 07:26 Room Air 06/05/22 07:22 06/05/22 03:14 Room Air Laboratory Results Short CBC 06/05/22 Range/Units 05:33 WBC 7.80 (4.8-10.8) K/ul Hgb 12.6 L (14.0-18.0) g/dl Hct 37.6 L (40.1-51.0) % Plt Count 222 (130-400) K/uL [facility] 06/05/22 05:33 Sodium 136 Potassium 4.2 Chloride 103 Carbon Dioxide 29 BUN 31 H Creatinine 1.52 H Glucose 168 H Calcium 9.0 (1) Abdominal pain Abdominal location: left upper quadrant Qualified Code(s): R10.12 - Left upper quadrant pain
[2022-06-05] MEDS: TAMSULOSIN HCL 0.4 MG CAP PO SCH (16:54)
[2022-06-05] MEDS: FAMOTIDINE 20 MG TAB PO SCH (22:30)
[2022-06-05] MEDS: PRAVASTATIN SOD 20 MG TAB PO SCH (22:31)
[2022-06-06] MEDS: HEPARIN SOD 5,000 UNIT/0.5 ML VIAL SQ SCH ×3 (06:30→21:47)
[2022-06-06] MEDS: HYDROcodone/ACETAMINOPHEN 10/325 TAB PO PRN ×3 (06:39→21:47)
[2022-06-06 07:07] LABS: BUN Creatinine Ratio 23.1 (10-20); Calcium 8.9 mg/dl (8.5-10.1); Creatinine Clr Calc Pharmacy 47.7 ml/min; Est GFR (African American) 52.1 ml/min; Potassium 4.1 mmol/L (3.5-5.1)
[2022-06-06] MEDS: INSULIN ASPART PER UNIT SC SCH ×4 (09:39→21:18)
[2022-06-06] MEDS: LANTUS PER UNIT CHARGE SQ SCH ×2 (09:40→21:18)
[2022-06-06] MEDS: allopurinoL 300 MG TAB PO SCH (09:41)
[2022-06-06] MEDS: ASPIRIN 81 MG ECTAB PO SCH (09:41)
[2022-06-06] MEDS: CARBIDOPA/LEVODOPA 25/100MG TAB PO SCH ×3 (09:42→21:02)
[2022-06-06] MEDS: CITALOPRAM 20 MG TAB PO SCH (09:42)
[2022-06-06] MEDS: DOCUSATE SODIUM 100 MG CAP PO SCH ×2 (09:43→21:00)
[2022-06-06] MEDS: OMEGA-3 (PURIFIED FISH OIL) 1 GM CAP PO SCH (09:44)
[2022-06-06] MEDS: GABAPENTIN 100 MG CAP PO SCH ×2 (09:44→21:00)
[2022-06-06] MEDS: POTASSIUM CHLORIDE 10 MEQ TABCR PO SCH (09:44)
[2022-06-06] MEDS: PANTOprazole 40 MG TAB PO SCH (09:44)
[2022-06-06] MEDS: SPIRONOLACTONE 12.5 MG TAB PO SCH (09:45)
[2022-06-06] MEDS: TORSEMIDE 20 MG TAB PO SCH (09:45)
[2022-06-06] MEDS: NYSTATIN CR 15 GM TUBE EXT SCH ×2 (11:12→20:59)
--- NOTE | 2022-06-06 16:24 | Hospitalist Progress Note ---
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 Metastatic disease Pleuritic/left rib pain secondary to above DD: Multiple myeloma/plasmacytoma , hepatocellular carcinoma with metastasis ? Primary: Prostate cancer H/O prostate cancer --CT Chest: 6.7 x 5.9 cm destructive expansile lesion within the lateral left eighth rib. Additional proximal right humeral diaphyseal lesion and suspected tiny lytic rib lesions. These are consistent with a neoplastic etiology and myeloma with plasmacytoma of the left eighth rib is a consideration. Metastatic disease could appear similar. No suspicious pulmonary nodules. No thoracic lymphadenopathy. Indeterminate 2.9 cm right hepatic lobe lesion, as shown on abdominal CT performed earlier today. --CT ABD: No acute infectious or inflammatory findings are identified in the abdomen or pelvis. Moderate constipation. Numerous subtle osteolytic bone lesions are suggested. Additionally, there is a large destructive/expansile lesion in the left 8th rib with a large soft tissue component. This is new from 10/26/2021. Neoplasm is the diagnosis of exclusion. Myeloma with a plasmacytoma of the 8th rib could potentially have this appearance. A 2.7 cm low-attenuation right lobe liver lesion is indeterminant but suspicious for neoplasm/metastatic disease. Cirrhotic liver morphology. Brachytherapy implants are noted in the prostate. -SPEP, UPEP pending -PSA 0.009, free PSA 0.01 -GREG, quantitative immunoglobulins, serum free light chain, AFP and CEA -Appreciate oncology input Plan for left eighth rib lesion biopsy--likely tomorrow Consider radiation oncology evaluation after the biopsy Pain control, incentive spirometry Continue current management Suspected complicated UTI--ruled out H/O prostate cancer Urine culture: Mixed probable skin francheska Received ceftriaxone empirically Bladder scan PRN for retention Parkinson's disease Continue Sinemet fall precautions Ambulates with walker DM II HbA1c 9.8 Hold home agents Basal/bolus insulin while admitted per protocol BSG AC HS HFpEF Appears euvolemic Continue torsemide, spironolactone CKD III Baseline Cr mid-high 1s Cr at baseline Monitor renal function Chronic back pain On narcotics Nocturnal hypoxemia Noted on previous admission. Declines further sleep workup or supplemental oxygen DVT Px: SQ heparin Code status: DNR/DNI Disposition PT OT prior to discharge Admission and Anticipated Discharge Date Admission Date: June 03, 2022 Subjective Patient is seen and examined at bedside Poor historian secondary to hearing impairment Persistent left rib pain Denies any chest pain, dyspnea, dizziness, nausea, abdominal pain No other complaints Review of Systems Review of Systems: All systems reviewed & are unremarkable except as noted in Subjective Physical Exam Physical Exam: Physical Exam: Vitals signs as noted above General Appearance:Moderately built and nourished, no apparent distress, elderly Head: normocephalic, Atraumatic Eyes: normal inspection, EOMI, Neck: supple, Trachea midline Respiratory/Chest: Normal breath sounds, CTA, Rib tender, No accessory muscle use Cardiovascular: S1, S2, No murmur Abdomen/GI:Soft, Non tender, Bowel sounds present Extremities/Musculoskeletal:normal inspection, no edema Neurologic/Psych:AAOX2, grossly no focal neurological deficits, +Hearing impairment, +Resting tremor Skin: normal color, warm Results & Data Results & Data ([facility]) Vital Signs (Past 12 Hours) Vital Signs Temp Pulse Pulse Resp BP BP Pulse Ox 06/06/22 08:00 06/06/22 08:00 74 06/06/22 11:08 36.4 C L 70 20 126/81 93 06/06/22 07:50 36.4 C L 71 20 133/93 95 O2 Del Method 06/06/22 08:00 Room Air 06/06/22 08:00 06/06/22 11:08 Room Air 06/06/22 07:50 Room Air Laboratory Results [facility] 06/06/22 05:51 Sodium 136 Potassium 4.1 Chloride 101 Carbon Dioxide 28 BUN 33 H Creatinine 1.43 H Glucose 175 H Calcium 8.9 (1) Abdominal pain Abdominal location: left upper quadrant Qualified Code(s): R10.12 - Left upper quadrant pain
[2022-06-06] MEDS: TAMSULOSIN HCL 0.4 MG CAP PO SCH (17:39)
[2022-06-06] MEDS: PRAVASTATIN SOD 20 MG TAB PO SCH (21:00)
[2022-06-06] MEDS: FAMOTIDINE 20 MG TAB PO SCH (21:01)
[2022-06-07] MEDS: HEPARIN SOD 5,000 UNIT/0.5 ML VIAL SQ SCH ×3 (06:02→21:41)
[2022-06-07] MEDS: POLYETHYLENE (MIRALAX) 17 GM PACK PO PRN (08:22)
[2022-06-07] MEDS: HYDROcodone/ACETAMINOPHEN 10/325 TAB PO PRN ×2 (08:22→16:39)
[2022-06-07] MEDS: POTASSIUM CHLORIDE 10 MEQ TABCR PO SCH (08:22)
[2022-06-07] MEDS: SPIRONOLACTONE 12.5 MG TAB PO SCH (08:24)
[2022-06-07] MEDS: CITALOPRAM 20 MG TAB PO SCH (08:24)
[2022-06-07] MEDS: CARBIDOPA/LEVODOPA 25/100MG TAB PO SCH ×3 (08:24→21:45)
[2022-06-07] MEDS: TORSEMIDE 20 MG TAB PO SCH (08:25)
[2022-06-07] MEDS: PANTOprazole 40 MG TAB PO SCH (08:25)
[2022-06-07] MEDS: ASPIRIN 81 MG ECTAB PO SCH (08:25)
[2022-06-07] MEDS: allopurinoL 300 MG TAB PO SCH (08:26)
[2022-06-07] MEDS: GABAPENTIN 100 MG CAP PO SCH ×2 (08:26→21:44)
[2022-06-07] MEDS: OMEGA-3 (PURIFIED FISH OIL) 1 GM CAP PO SCH (08:26)
[2022-06-07] MEDS: DOCUSATE SODIUM 100 MG CAP PO SCH ×2 (08:27→21:43)
[2022-06-07] MEDS: LANTUS PER UNIT CHARGE SQ SCH ×2 (09:25→21:40)
[2022-06-07] MEDS: INSULIN ASPART PER UNIT SC SCH ×4 (09:26→21:40)
--- NOTE | 2022-06-07 11:34 | XRay Report ---
XR chest 1V portable HISTORY: 81 years-old Male rib pain . Acute left-sided rib pain COMPARISON: Chest CT June 03, 2022 TECHNIQUE: AP view of the chest FINDINGS: Expansile destructive lytic lesion lateral left eighth rib with 6.7 cm soft tissue component redemons trated. Cardiac mediastinal and hilar silhouettes are within normal limits. No pneumothorax, pleural effusion or overt pulmonary edema. Mild subsegmental bibasilar atelectasis. Degenerative changes of t he shoulders and spine. IMPRESSION: 6.7 cm lytic destructive expansile mass of the lateral left eighth rib redemonstrated. Pl asmacytoma is the primary differential consideration. ACT 112: Negative or not required by law. The above report was generated using voice recognition software. It may contain grammatical, syntax o r spelling errors. Electronically signed by: Brandon Aguilar M.D. 06/07/2022 11:32 AM
[2022-06-07] MEDS: NYSTATIN CR 15 GM TUBE EXT SCH ×2 (12:36→21:45)
[2022-06-07 13:18] LABS: Beta-2-Microglobulin 4.51 mg/L (< OR = 2.51); Free Kappa/Lambda Ratio 1.41 (0.26-1.65); Free Lambda 32.7 mg/L (5.7-26.3)
--- NOTE | 2022-06-07 13:26 | Hematology/Oncology Prog Note ---
Date of Service June 07, 2022 Assessment & Plan (1) Bone lesion: (2) Liver lesion: Plan Results from myeloma testing still pending. Awaiting ultrasound guided biopsy of left eighth rib lesion. Hematology will follow up With patient to discuss pathology results after biopsy Admission and Anticipated Discharge Date Admission Date: June 03, 2022 Results & Data ([facility]) Vital Signs (Past 12 Hours) Vital Signs Temp Pulse Pulse Resp BP Pulse Ox O2 Del Method 06/07/22 12:01 36.3 C L 92 H 18 125/70 95 Room Air 06/07/22 08:16 37.0 C 73 18 144/78 H 92 Room Air 06/07/22 03:56 37 C 66 18 140/76 96 Room Air
--- NOTE | 2022-06-07 15:19 | Radiation OncologyConsultation ---
Date of Consultation June 07, 2022 Assessment & Plan (1) Bone lesion: Plan 81-year-old gentleman with a prior history of prostate cancer presented to the emergency room with severe rib pain. PSA was found to be undetectable. Multiple studies have been performed and he has been found to have a large expansile destructive lesion of the eighth lateral rib. He is having some pain control with current pain medications. This increases with any movement. He has been scheduled for biopsy tomorrow. Multiple laboratory studies have been ordered and are pending to help determine his diagnosis. He is being evaluated for myeloma or plasmacytoma. We will await completion of the biopsy. ATTENDING ADDENDUM: Assessment: Mr. Merritt is an 81-year-old gentleman with a history of prostate cancer treated with a prostate seed implant who now presents likely with likely myeloproliferative process which could include plasmacytoma or multiple myeloma. The patient has a large lytic lesion involving the eighth rib which is painful. Medical oncology has evaluated the patient and recommended biopsy including a full diagnostic work-up. The patient is scheduled to undergo biopsy tomorrow. We have been asked to evaluate the patient regarding the role of palliative radiation therapy. Plan: 1. IR guided biopsy tomorrow to obtain tissue diagnosis. 2. Likely the patient will need palliative radiation therapy to the left eighth rib. We will confirm plan with medical oncology prior to initiating treatment planning for radiation therapy. 3. Continue pain management as per primary medical team. 4. We will continue to document as needed for this patient. Also any further questions or concerns. Supervising Physician Co-Signing Physician Notes I agree with the information provided as documented by the midlevel provider. I reviewed all the clinical information with the midlevel provider. History of Present Illness Reason for Consultation: Destructive lesion of the lateral left eighth rib with associated pain. Requesting Physician: Lito Arguello MD Attending Physician: Lito Arguello MD History of Present Illness Patient is known to our office from history of prior prostate seed implant. He had had an elevated PSA November 2008. Biopsies revealed a Cristina score 3+3. He was started on Proscar due to prostate a megaly. He had an arch study which showed interference. He was continued on Lupron for 6 months. The arch study was repeated and he was a candidate for implant. He was treated with cesium 131 seed implant on 06/29/2011. 94 seeds were placed. He continued follow-up and the PSA has remained undetectable. Approximately 8 weeks ago he began having pain in the left anterior lateral ribs. He is not recall any trauma. This is steadily become worse over time. Movement increases discomfort and raising the left arm increases discomfort. This daily came more severe till he presented to the emergency room on 06/03/2022. At that time he gave a pain level of 10. 06/03/2022. CT of the chest. 6.7 x 5.9 cm destructive expansile lesion within the lateral left eighth rib. Additional proximal right humeral diaphyseal lesion and subsequent tiny lytic rib lesions. These are consistent with a neoplastic etiology and myeloma with plasmacytoma of the left eighth rib is a consideration. Metastatic disease could be similar. No suspicious pulmonary nodules. No thoracic lymphadenopathy. Intermediate 2.9 cm right hepatic lobe lesion seen on CT of the abdomen and pelvis. 06/03/2022. CT of the abdomen and pelvis. No acute infectious or inflammatory findings are identified. Moderate constipation. Numerous subtle osteolytic bone lesions are suggested. Additionally there is a large destructive/expansile lesion in the left eighth rib with a large soft tissue component. This is new from 10/26/2021. Neoplasm is a diagnosis of exclusion. Myeloma with a plas macytoma of the eighth rib could potentially have the same appearance. A 2.7 cm low-attenuation right lobe liver lesion is intermediate but suspicious for neoplasm/metastatic disease. Cirrhotic liver morphology. Brachytherapy implants are noted in the prostate. 06/03/2022. PSA at 0.009. Since his hospitalization there has been some improvement in pain control. He states the pain level is 3-4 when sitting. This increases with any movement. He has been seen by medical oncology. He has scheduled for biopsy of the rib lesion 06/08/2021. Our office was asked to review his case and consider palliative radiation therapy. Allergies Allergy/AdvReac Type Severity Reaction Status Date / Time No Known Allergies Verified 10/26/21 03:07 Home Medications Medication Instructions Recorded Confirmed Type aspirin 81 mg tablet,delayed 81 mg PO DAILY 07/31/18 06/03/22 History release hydrocodone 10 mg-acetaminophen 1 tab PO TID PRN Severe Pain 07/31/18 06/03/22 History 325 mg tablet (Scale Score 7-10) omega 8-unm-zqa-fish oil 1,000 mg 1 cap PO DAILY 07/31/18 06/03/22 History (120 mg-180 mg) capsule potassium chloride 10 mEq 10 meq PO DAILY 07/31/18 06/03/22 History tablet,extended release(part/cryst) spironolactone 25 mg tablet 12.5 mg PO DAILY 07/31/18 06/03/22 History tamsulosin 0.4 mg capsule 0.4 mg PO DAILY@1800 07/31/18 06/03/22 History metformin 500 mg tablet,extended 850 mg PO BIDM 07/07/20 06/03/22 History release 24 hr allopurinol 300 mg tablet 300 mg PO QAM 10/26/21 06/03/22 History carbidopa 25 mg-levodopa 100 mg 1 tab PO TID 10/26/21 06/03/22 History tablet empagliflozin 10 mg tablet 10 mg PO DAILY 10/26/21 06/03/22 History (Jardiance) gabapentin 100 mg capsule 100 mg PO BID 10/26/21 06/03/22 History pantoprazole 40 mg tablet,delayed 40 mg PO DAILY 10/26/21 06/03/22 History release pravastatin 20 mg tablet 20 mg PO HS 10/26/21 06/03/22 History torsemide 20 mg tablet 20 mg PO DAILY 10/26/21 06/03/22 History citalopram 20 mg tablet 20 mg PO DAILY 11/07/21 06/03/22 History famotidine 20 mg tablet 20 mg PO HS 11/07/21 06/03/22 History nystatin 100,000 unit/gram topical 1 applic EXT BID #30 grams 04/04/22 06/03/22 Rx cream dulaglutide 4.5 mg/0.5 mL 4.5 mg subcut WK 06/03/22 06/03/22 History subcutaneous pen injector (Trulicity) insulin glargine 100 unit/mL (3 30 unit subcut BID 06/03/22 06/04/22 History mL) subcutaneous pen (Lantus Solostar U-100 Insulin) Patient History Medical History (Updated 06/05/22 @ 09:25 by Shy Jackson MD) (HFpEF) heart failure with preserved ejection fraction PARMJIT (acute kidney injury) Chronic back pain Chronic back pain Chronic diastolic heart failure CKD (chronic kidney disease), stage III COVID-19 Depression Diabetes mellitus, type II Diaphragmatic hernia Diverticulitis GERD (gastroesophageal reflux disease) History of prostate cancer Hyperlipidemia Hypertension Narcotic dependence Parkinsons Prostate cancer "Prostate, adenocarcinoma, cristina 3 + 3, 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, cT1c, group I TREATMENT: Prostate seed implant - Cesium 131 - 06/30/2011 - monotherapy alone, Lupron for 6 months prior to implantation." Type 2 diabetes mellitus Urinary tract infection Venous insufficiency Surgical History History of elbow surgery ORIF of left elbow fracture in 1995 History of hip replacement History of knee replacement History of transurethral resection of prostate 2004 Status post hernia repair Family History Mother Stroke Social History Smoking Status: Former smoker Tobacco Type: Smokeless Tobacco (Dip or Chew) Second Hand Exposure: No; Hx Alcohol Use: No Hx Substance Use: No Preferred Language: Azeri Communication Ability: Effective Bar Helper Required: No Beliefs That Will Affect Care: None marital status: / Current Living Situation: Family Current Living Situation Comment: with friends current occupational status: retired How many Children do You have: 3 Feels Safe at Home: Yes Safety Concerns: Feels Safe At This Time Assistive Devices: Denture - Upper, Denture - Lower and Walker Review of Systems Review of Systems: 13 point review of systems completed. No complaints other than constipation and rib pain. Physical Exam Constitutional: WD/WN, vitals as above Eyes: PERRL, conjunctivae normal, anicteric sclerae ENMT: Ears: no hearing impairment Neck: trachea midline, no thyromegaly Respiratory: normal respiratory effort, lungs clear to auscultation Cardiovascular: RRR, no murmur, no edema Chest (Breasts): Additional Comments: There is tenderness to palpation of the left lateral ribs. Mild for most. No other modalities of overlying skin. Gastrointestinal (Abdomen): normal bowel sounds, soft, nontender, no hepatosplenomegaly Skin: no rashes, warm and dry Neurologic: Normal strength and coordination. Psychiatric: A+Ox3, euthymic affect Lymphatic: no cervical or axillary lymphadenopathy Results (Rad Onc) Laboratory Results: were reviewed and pertinent findings noted in HPI Imaging Studies: were reviewed and pertinent findings noted in HPI Time Spent Midlevel I spent [15] minutes in preparation for this follow up evaluation including reviewing all the clinical records, reviewing laboratory studies, pathology reports and imaging results. I spent [30] minutes with direct face to face interaction with the patient and/or family including performing a physical exam and answering all questions. I spent [10] minutes documenting this patient's visit.
--- NOTE | 2022-06-07 17:53 | Hospitalist Progress Note ---
Date of Service June 07, 2022 Assessment & Plan (1) Rib pain on left side: (2) Abdominal pain: (3) Abnormal computed tomography angiography (CTA) of abdomen and pelvis: (4) Complicated UTI (urinary tract infection): (5) Parkinsons: (6) Diabetes mellitus, type II: (7) (HFpEF) heart failure with preserved ejection fraction: (8) CKD (chronic kidney disease), stage III: (9) History of prostate cancer: (10) Chronic back pain: (11) Nocturnal hypoxemia: Plan Patient is an 78 yr old male with PMH of type 2 diabetes, Parkinson's disease, diastolic dysfunction, hypertension, CKD 3, chronic lower back pain with narcotic dependence, depression, history of prostate cancer, nocturnal hypoxemia not on oxygen and other medical problems listed below who presents with left- sided chest and lower abdominal pain. Metastatic disease Pleuritic/left rib pain secondary to above DD: Multiple myeloma/plasmacytoma , hepatocellular carcinoma with metastasis H/O prostate cancer --CT Chest: 6.7 x 5.9 cm destructive expansile lesion within the lateral left eighth rib. Additional proximal right humeral diaphyseal lesion and suspected tiny lytic rib lesions. These are consistent with a neoplastic etiology and myeloma with plasmacytoma of the left eighth rib is a consideration. Metastatic disease could appear similar. No suspicious pulmonary nodules. No thoracic lymphadenopathy. Indeterminate 2.9 cm right hepatic lobe lesion, as shown on abdominal CT performed earlier today. --CT ABD: No acute infectious or inflammatory findings are identified in the abdomen or pelvis. Moderate constipation. Numerous subtle osteolytic bone lesions are suggested. Additionally, there is a large destructive/expansile lesion in the left 8th rib with a large soft tissue component. This is new from 10/26/2021. Neoplasm is the diagnosis of exclusion. Myeloma with a plasmacytoma of the 8th rib could potentially have this appearance. A 2.7 cm low-attenuation right lobe liver lesion is indeterminant but suspicious for neoplasm/metastatic disease. Cirrhotic liver morphology. Brachytherapy implants are noted in the prostate. -SPEP, UPEP pending -PSA 0.009, free PSA 0.01 -GREG, quantitative immunoglobulins, serum free light chain, AFP and CEA -Appreciate oncology input Plan for left eighth rib lesion biopsy-- tomorrow Consulted Radiation oncology Pain control, incentive spirometry NPO after midnight Suspected complicated UTI--ruled out H/O prostate cancer Urine culture: Mixed probable skin francheska Received ceftriaxone empirically Bladder scan PRN for retention Parkinson's disease Continue Sinemet fall precautions Ambulates with walker DM II HbA1c 9.8 Hold home agents Basal/bolus insulin while admitted per protocol BSG AC HS HFpEF Appears euvolemic Continue torsemide, spironolactone CKD III Baseline Cr mid-high 1s Cr at baseline Monitor renal function Chronic back pain On narcotics Nocturnal hypoxemia Noted on previous admission. Declines further sleep workup or supplemental oxygen DVT Px: SQ heparin Code status: DNR/DNI Disposition PT OT prior to discharge Admission and Anticipated Discharge Date Admission Date: June 03, 2022 Subjective Patient is seen and examined at bedside Poor historian secondary to hearing impairment Reports constipation this morning, later had bowel movement Persistent left rib pain Denies any chest pain, dyspnea, dizziness, nausea, abdominal pain Discussed with oncology today Review of Systems Review of Systems: All systems reviewed & are unremarkable except as noted in Subjective Physical Exam Physical Exam: Physical Exam: Vitals signs as noted above General Appearance:Moderately built and nourished, no apparent distress, elderly Head: normocephalic, Atraumatic Eyes: normal inspection, EOMI, Neck: supple, Trachea midline Respiratory/Chest: Normal breath sounds, CTA, Rib tender, No accessory muscle use Cardiovascular: S1, S2, No murmur Abdomen/GI:Soft, Non tender, Bowel sounds present Extremities/Musculoskeletal:normal inspection, no edema Neurologic/Psych:AAOX2, grossly no focal neurological deficits, +Hearing impairment, +Resting tremor Skin: normal color, warm Results & Data Results & Data ([facility]) Vital Signs (Past 12 Hours) Vital Signs Temp Pulse Resp BP Pulse Ox O2 Del Method 06/07/22 17:16 36.8 C 74 18 151/79 H 94 Room Air 06/07/22 12:01 36.3 C L 92 H 18 125/70 95 Room Air 06/07/22 08:16 37.0 C 73 18 144/78 H 92 Room Air (1) Abdominal pain Abdominal location: left upper quadrant Qualified Code(s): R10.12 - Left upper quadrant pain
[2022-06-07] MEDS: TAMSULOSIN HCL 0.4 MG CAP PO SCH (17:55)
[2022-06-07] MEDS: FAMOTIDINE 20 MG TAB PO SCH (21:44)
[2022-06-07] MEDS: PRAVASTATIN SOD 20 MG TAB PO SCH (21:44)
[2022-06-08] MEDS: HEPARIN SOD 5,000 UNIT/0.5 ML VIAL SQ SCH ×2 (05:49→14:14)
[2022-06-08 06:36] LABS: Prothrombin Time 10.7 Seconds (9.0-12.0)
[2022-06-08 06:52] LABS: Albumin 3.7 g/dL (3.8-4.8); Alpha 1 Globulin 0.3 g/dL (0.2-0.3); Beta-1-Globulin 0.5 g/dL (0.4-0.6); Beta-2-Globulin 0.5 g/dL (0.2-0.5); Gamma Globulin 1.1 g/dL (0.8-1.7); Monoclonal Protein Band 1 DNR g/dL (NONE DETECTED); Monoclonal Protein Band 2 DNR g/dL (NONE DETECTED); Monoclonal Protein Band 3 DNR g/dL (NONE DETECTED); Total Protein 7.1 g/dL (6.1-8.1)
[2022-06-08 07:18] LABS: Creatinine Ur 63 mg/dL (20-320); Protein, Urine Random 15 mg/dL (5-25); Ur Protein/Creat Ratio mg/g 238 mg/g creat (25-148); Urine Abnormal Protein Band 1 DNR mg/dL (NONE DETECTED); Urine Abnormal Protein Band 2 DNR mg/dL (NONE DETECTED); Urine Abnormal Protein Band 3 DNR mg/dL (NONE DETECTED); Urine Protein/Creatinine Ratio 0.238 (0.025-0.148)
[2022-06-08 08:47] LABS: AFP Tumor Marker Serum 1953.2 ng/mL (<6.1)
[2022-06-08] MEDS: OMEGA-3 (PURIFIED FISH OIL) 1 GM CAP PO SCH (09:25)
[2022-06-08] MEDS: DOCUSATE SODIUM 100 MG CAP PO SCH (09:25)
[2022-06-08] MEDS: SPIRONOLACTONE 12.5 MG TAB PO SCH (09:25)
[2022-06-08] MEDS: INSULIN ASPART PER UNIT SC SCH ×2 (09:25→12:16)
[2022-06-08] MEDS: POTASSIUM CHLORIDE 10 MEQ TABCR PO SCH (09:25)
[2022-06-08] MEDS: PANTOprazole 40 MG TAB PO SCH (09:25)
[2022-06-08] MEDS: allopurinoL 300 MG TAB PO SCH (09:26)
[2022-06-08] MEDS: TORSEMIDE 20 MG TAB PO SCH (09:26)
[2022-06-08] MEDS: CARBIDOPA/LEVODOPA 25/100MG TAB PO SCH ×2 (09:26→14:36)
[2022-06-08] MEDS: CITALOPRAM 20 MG TAB PO SCH (09:26)
[2022-06-08] MEDS: GABAPENTIN 100 MG CAP PO SCH (09:27)
[2022-06-08] MEDS: LANTUS PER UNIT CHARGE SQ SCH (09:29)
[2022-06-08] MEDS: NYSTATIN CR 15 GM TUBE EXT SCH (09:30)
[2022-06-08] MEDS: ASPIRIN 81 MG ECTAB PO SCH (12:17)
--- NOTE | 2022-06-08 12:51 | XRay Report ---
XR chest inspiration/expiratio CLINICAL HISTORY: s/p chest wall biopsy TECHNIQUE: Inspiration and expiration frontal views were obtained. Comparison: Comparison is made to chest radiograph 06/07/2022 FINDINGS: No lines and tubes are seen. Calcified aortic knob is seen. The lungs are clear. No evidence of pleur al effusion or pneumothorax. A large left-sided chest wall mass is again seen. IMPRESSION: No acute abnormality, in particular no evidence of pneumothorax in this patient status post left ches t wall biopsy. ACT 112: Negative or not required by law. Electronically signed by: Fritz Weber M.D. 06/08/2022 12:50 PM
--- NOTE | 2022-06-08 13:45 | Hospitalist Progress Note ---
Date of Service June 08, 2022 Assessment & Plan (1) Rib pain on left side: (2) Abdominal pain: (3) Abnormal computed tomography angiography (CTA) of abdomen and pelvis: (4) Complicated UTI (urinary tract infection): (5) Parkinsons: (6) Diabetes mellitus, type II: (7) (HFpEF) heart failure with preserved ejection fraction: (8) CKD (chronic kidney disease), stage III: (9) History of prostate cancer: (10) Chronic back pain: (11) Nocturnal hypoxemia: Plan Patient is an 78 yr old male with PMH of type 2 diabetes, Parkinson's disease, diastolic dysfunction, hypertension, CKD 3, chronic lower back pain with narcotic dependence, depression, history of prostate cancer, nocturnal hypoxemia not on oxygen and other medical problems listed below who presents with left- sided chest and lower abdominal pain. Metastatic disease Pleuritic/left rib pain secondary to above DD: Multiple myeloma/plasmacytoma , hepatocellular carcinoma with metastasis H/O prostate cancer --CT Chest: 6.7 x 5.9 cm destructive expansile lesion within the lateral left eighth rib. Additional proximal right humeral diaphyseal lesion and suspected tiny lytic rib lesions. These are consistent with a neoplastic etiology and myeloma with plasmacytoma of the left eighth rib is a consideration. Metastatic disease could appear similar. No suspicious pulmonary nodules. No thoracic lymphadenopathy. Indeterminate 2.9 cm right hepatic lobe lesion, as shown on abdominal CT performed earlier today. --CT ABD: No acute infectious or inflammatory findings are identified in the abdomen or pelvis. Moderate constipation. Numerous subtle osteolytic bone lesions are suggested. Additionally, there is a large destructive/expansile lesion in the left 8th rib with a large soft tissue component. This is new from 10/26/2021. Neoplasm is the diagnosis of exclusion. Myeloma with a plasmacytoma of the 8th rib could potentially have this appearance. A 2.7 cm low-attenuation right lobe liver lesion is indeterminant but suspicious for neoplasm/metastatic disease. Cirrhotic liver morphology. Brachytherapy implants are noted in the prostate. -SPEP, UPEP pending -PSA 0.009, free PSA 0.01 -GREG, quantitative immunoglobulins, serum free light chain, AFP and CEA -Appreciate oncology and Radiation oncology input S/P Left 8th rib lesion biopsy--on 06/08/22 Pain control, incentive spirometry Advised to follow up with Oncology/Radiation Oncology upon discharge Suspected complicated UTI--ruled out H/O prostate cancer Urine culture: Mixed probable skin francheska Received ceftriaxone empirically Bladder scan PRN for retention Parkinson's disease Continue Sinemet fall precautions Ambulates with walker DM II HbA1c 9.8 Hold home agents Basal/bolus insulin while admitted per protocol BSG AC HS HFpEF Appears euvolemic Continue torsemide, spironolactone CKD III Baseline Cr mid-high 1s Cr at baseline Monitor renal function Chronic back pain On narcotics Nocturnal hypoxemia Noted on previous admission. Declines further sleep workup or supplemental oxygen DVT Px: SQ heparin Code status: DNR/DNI Disposition Home with Home Health Admission and Anticipated Discharge Date Admission Date: June 03, 2022 Subjective Patient is seen and examined at bedside Poor historian secondary to hearing impairment No new complaints Had biopsy of left rib lesion today Reports left rib pain Denies any chest pain, dyspnea, dizziness, nausea, abdominal pain Review of Systems Review of Systems: All systems reviewed & are unremarkable except as noted in Subjective Physical Exam Physical Exam: Physical Exam: Vitals signs as noted above General Appearance:Moderately built and nourished, no apparent distress, elderly Head: normocephalic, Atraumatic Eyes: normal inspection, EOMI, Neck: supple, Trachea midline Respiratory/Chest: Normal breath sounds, CTA, Rib tender, No accessory muscle use Cardiovascular: S1, S2, No murmur Abdomen/GI:Soft, Non tender, Bowel sounds present Extremities/Musculoskeletal:normal inspection, no edema Neurologic/Psych:AAOX2, grossly no focal neurological deficits, +Hearing impairment, +Resting tremor Skin: normal color, warm Results & Data Results & Data ([facility]) Vital Signs (Past 12 Hours) Vital Signs Temp Pulse Pulse Pulse Resp BP Pulse Ox 06/08/22 11:40 36.2 C L 74 20 146/86 H 94 06/08/22 07:35 36.5 C 73 20 148/78 H 94 06/08/22 07:22 67 06/08/22 03:05 36.5 C 76 18 143/80 H 96 O2 Del Method 06/08/22 11:40 Room Air 06/08/22 07:35 Room Air 06/08/22 07:22 06/08/22 03:05 Room Air (1) Abdominal pain Abdominal location: left upper quadrant Qualified Code(s): R10.12 - Left upper quadrant pain
--- NOTE | 2022-06-08 13:49 | Ultrasound Report ---
US biopsy softtiss mass/muscle CLINICAL HISTORY: 6.7 x 5.9 cm lesion within lat 8th rib Comparison: None available at the time of this dictation. TECHNIQUES/FINDINGS: Following explanation of techniques, benefits and potential complications, [facility] consent was obtained from the patient. The patient was brought to the procedure room and placed supine on the stretcher. The preliminary ult rasound of the left rib region demonstrated a large soft tissue mass. The patient was then prepped an d draped in the usual standard fashion. 2% Lidocaine was used for local anesthesia. The patient's vit al signs, EKG and oxygen saturation were continuously monitored by the nursing staff. "Time out" was called, including patient's name, medical record number and date of , and the pro cedure to be performed was verified prior to beginning the procedure. Under ultrasound guidance, a 1 8-gauge biopsy needle with a 2 cm throw was used to obtain 2 core biopsies. 2 FNAs were also performe d with 25 and 22-gauge needles. The samples were immediately given to [facility] for analysis. Hemostasis was achieved with manual compression. The patient tolerated the procedure well with no imm ediate complications. Impression: Successful biopsy of the left rib mass under ultrasound guidance. ACT 112: Negative or not required by law. Electronically signed by: Fritz Weber M.D. 06/08/2022 1:48 PM
--- NOTE | 2022-06-08 13:57 | Discharge Summary ---
Date of Service June 08, 2022 Admission HPI Per Admitting Provider This is an 78-year-old male with PMH of type 2 diabetes, Parkinson's disease, diastolic dysfunction, hypertension, CKD 3, chronic lower back pain with narcotic dependence, depression, history of prostate cancer, nocturnal hypoxemia not on oxygen and other medical problems listed below who presents with left- sided chest and lower abdominal pain. Noticed aching pain on left side of abdomen for the past 6 weeks but it is gotten progressively worse over the past few days and is now radiating up onto left chest wall. Patient came to ED for further evaluation due to concern pain was cardiac. Also endorses decreased appetite and nausea but denies any vomiting. Denies any fall or trauma to this area. Patient taking all other medications as scheduled. Lidocaine patch was trialed and did not help pain. Patient states his normal as needed [place] at home for his back pain does help pain subside for a time. Started to have urinary symptoms again over the past few days after being admitted last March for Klebsiella UTI. States he is having increased frequency and urgency as well as intermittent hematuria. Denies any fever, chills, lightheadedness, substernal chest pain, palpitations, shortness of breath, dysuria, diarrhea or constipation. Lives with his caregiver and daughter. Ambulates with a walker. Admission Exam Per Admitting Provider General Appearance:WD/WN, vitals as above, NAD, sitting up in bed, pleasant, conversing easily Head: normocephalic, atraumatic Eyes:normal inspection, PERRL, conjunctivae normal, anicteric sclerae ENT: external ear and nose normal, oropharynx normal Neck: normal visual inspection, trachea midline, no thyromegaly Respiratory:normal respiratory effort, lungs clear to auscultation, no wheeze, rales, rhonchi. No accessory muscle use Cardiovascular: regular rate, rhythm, no murmur, normal peripheral pulses, no BLE edema. Vessels: no JVD Chest: normal inspection of chest Abdomen/GI: normal bowel sounds, soft, nontender, no hepatosplenomegaly. 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 and Liver lesion Discharge Data Allergies Allergy/AdvReac Type Severity Reaction Status Date / Time No Known Allergies Verified 10/26/21 03:07 Consultations 06/03/22 13:43 ED Decision to Admit Stat 06/03/22 18:33 Consult Oncology Routine 06/07/22 14:07 Consult Radiation Oncology Routine Procedures Performed Laboratory Results WBC 7.80 K/ul (4.8-10.8) 06/05/22 05:33 RBC 4.03 M/uL (4.63-6.08) L 06/05/22 05:33 Hgb 12.6 g/dl (14.0-18.0) L 06/05/22 05:33 Hct 37.6 % (40.1-51.0) L 06/05/22 05:33 MCV 93.3 fL (80.0-100.0) 06/05/22 05:33 MCH 31.3 pg (25.0-34.0) 06/05/22 05:33 MCHC 33.5 g/dL (32.0-36.0) 06/05/22 05:33 RDW Std Deviation 46.0 fL (36.4-46.3) 06/05/22 05:33 RDW Coeff of [place] 13.5 % (11.5-14.5) 06/05/22 05:33 Plt Count 222 K/uL (130-400) 06/05/22 05:33 MPV 10.6 fL (9.4-12.4) 06/05/22 05:33 Immature Gran % (Auto) 1.3 % 06/03/22 11:00 Neut % (Auto) 67.8 % 06/03/22 11:00 Lymph % (Auto) 21.2 % 06/03/22 11:00 [place] % (Auto) 7.4 % 06/03/22 11:00 Eos % (Auto) 1.8 % 06/03/22 11:00 Baso % (Auto) 0.5 % 06/03/22 11:00 Neut # (Auto) 6.28 K/uL (1.4-6.5) 06/03/22 11:00 Lymph # (Auto) 1.97 K/uL (1.2-3.4) 06/03/22 11:00 [place] # (Auto) 0.69 K/uL (0.24-0.82) 06/03/22 11:00 Eos # (Auto) 0.17 K/uL (0-0.50) 06/03/22 11:00 Baso # (Auto) 0.05 K/uL (0-0.2) 06/03/22 11:00 Immature Gran # (Auto) 0.12 K/uL (0.00-0.02) H 06/03/22 11:00 Peripher Smr Path Cons 06/03/22 11:00 PT 10.7 Seconds (9.0-12.0) 06/08/22 05:43 INR 1.0 (0.9-1.1) 06/08/22 05:43 Sodium 136 mmol/L (136-145) 06/06/22 05:51 Potassium 4.1 mmol/L (3.5-5.1) 06/06/22 05:51 Chloride 101 mmol/L (98-107) 06/06/22 05:51 Carbon Dioxide 28 mmol/L (21-32) 06/06/22 05:51 Anion Gap 7 (3-11) 06/06/22 05:51 BUN 33 mg/dl (6-23) H 06/06/22 05:51 Creatinine 1.43 mg/dl (0.6-1.4) H 06/06/22 05:51 Est Cr Clr Drug Dosing 47.7 ml/min 06/06/22 05:51 Est GFR ( Amer) 52.1 ml/min 06/06/22 05:51 Est GFR (Non-Af Amer) 45.0 ml/min 06/06/22 05:51 BUN/Creatinine Ratio 23.1 (10-20) H 06/06/22 05:51 Glucose 175 mg/dl (70-99(Fasting)) H 06/06/22 05:51 POC Glucose 186 mg/dl (70-99) H 06/08/22 11:35 Estimat Average Glucose 235 mg/dl 06/04/22 07:41 Hemoglobin A1c 9.8 % (4.5-5.6) H 06/04/22 07:41 Calcium 8.9 mg/dl (8.5-10.1) 06/06/22 05:51 Magnesium 2.1 mg/dl (1.7-2.4) 06/05/22 05:33 Total Bilirubin 0.8 mg/dl (0.2-1.0) 06/03/22 11:52 AST 30 U/L (13-39) 06/03/22 11:52 ALT 34 U/L (7-52) 06/03/22 11:52 Alkaline Phosphatase 119 U/L (34-104) H 06/03/22 11:52 Troponin I High Sens 7.8 pg/ml (0-20) 06/03/22 11:52 Total Protein 7.2 gm/dl (6.0-8.3) 06/03/22 11:52 Total Protein (PEP) 7.1 g/dL (6.1-8.1) 06/03/22 11:00 Albumin 3.7 gm/dl (3.4-5.0) 06/03/22 11:52 Albumin (PEP) 3.7 g/dL (3.8-4.8) L 06/03/22 11:00 Globulin 3.5 gm/dl (2.5-4.0) 06/03/22 11:52 Albumin/Globulin Ratio 1.1 (0.9-2) 06/03/22 11:52 Xyiww-7-Srnrfvslp 0.3 g/dL (0.2-0.3) 06/03/22 11:00 Qlnfm-0-Xgmujlrle 1.0 g/dL (0.5-0.9) H 06/03/22 11:00 Tyhg-9-Zywnyzma 0.5 g/dL (0.4-0.6) 06/03/22 11:00 Gavy-7-Gxifhmpz 0.5 g/dL (0.2-0.5) 06/03/22 11:00 Uhvq-7-Qhtmkjinlumyq 4.51 mg/L (< OR = 2.51) H 06/05/22 09:19 Gamma Globulins 1.1 g/dL (0.8-1.7) 06/03/22 11:00 Monoclonal Peak 3 DNR g/dL (NONE DETECTED) 06/03/22 11:00 Ser Monoclonl Protein DNR g/dL (NONE DETECTED) 06/03/22 11:00 Ser Monoclonal Prot 2 DNR g/dL (NONE DETECTED) 06/03/22 11:00 PEP Interpretation SEE NOTE 06/03/22 11:00 Lipase 19 U/L (11-82) 06/03/22 11:52 Tumor Marker AFP 1953.2 ng/mL (<6.1) H 06/05/22 09:19 Carcinoembryonic Ag 3.8 ng/ml (0-2.5) H 06/05/22 09:19 Prostate Specific Ag 0.009 ng/ml (0-4) 06/03/22 18:45 Free PSA 0.01 ng/ml (0-2.0) 06/03/22 18:45 % Free PSA 111.1 % 06/03/22 18:45 Urine Color Yellow 06/03/22 23:30 Urine Appearance Clear (Clear) 06/03/22 23:30 Urine pH 6.5 (4.5-7.5) 06/03/22 23:30 Ur Specific [place] 1.022 (1.000-1.030) 06/03/22 23:30 Urine Protein Negative (Negative) 06/03/22 23:30 Urine Glucose (UA) 3+ (Negative) H 06/03/22 23:30 Urine Ketones Negative (Negative) 06/03/22 23:30 Urine Blood 2+ (Negative) H 06/03/22 23:30 Urine Nitrite Negative (Negative) 06/03/22 23:30 Urine Bilirubin Negative (Negative) 06/03/22 23:30 Urine Urobilinogen Negative (Negative) 06/03/22 23:30 Ur Leukocyte Esterase Negative (Negative) 06/03/22 23:30 Urine WBC (Auto) 5-10 /hpf (0-5) H 06/03/22 23:30 Urine RBC (Auto) 10-30 /hpf (0-4) H 06/03/22 23:30 U Hyaline Cast (Auto) 0 /lpf (0-5) 06/03/22 23:30 U Epithel Cells (Auto) 10-20 /lpf (0-5) H 06/03/22 23:30 Urine Bacteria (Auto) Negative (Negative) 06/03/22 23:30 U Random Total Protein 15 mg/dL (5-25) 06/03/22 13:34 Ur Creatinine mg/dL 63 mg/dL (20-320) 06/03/22 13:34 Protein/Creatinin Ratio 0.238 (0.025-0.148) H 06/03/22 13:34 Urine Albumin (%) 42 % 06/03/22 13:34 U Lrqih-6-Pivvdupt (%) 4 % 06/03/22 13:34 U Vvgsf-4-Exzpzytu (%) 13 % 06/03/22 13:34 U Beta Globulin (%) 21 % 06/03/22 13:34 U Gamma Globulin (%) 20 % 06/03/22 13:34 U Abnormal Prot Band 1 DNR mg/dL (NONE DETECTED) 06/03/22 13:34 U Abnormal Prot Band 2 DNR mg/dL (NONE DETECTED) 06/03/22 13:34 U Abnormal Prot Band 3 DNR mg/dL (NONE DETECTED) 06/03/22 13:34 Urine PEP Interpret SEE NOTE 06/03/22 13:34 IgG 999.9 mg/dl (635-1741) 06/05/22 09:19 IgA 358.2 mg/dl (70-400) 06/05/22 09:19 IgM 54.7 mg/dl (45-281) 06/05/22 09:19 Free [place] LC, Quant 46.0 mg/L (3.3-19.4) H 06/05/22 09:19 Free Lambda LC, Quant 32.7 mg/L (5.7-26.3) H 06/05/22 09:19 Free [place]/Lambda Ratio 1.41 (0.26-1.65) 06/05/22 09:19 SARS-CoV-2 (PCR) NEGATIVE (Negative) 06/03/22 13:15 Influenza Type A (PCR) Negative (Neg) 06/03/22 13:15 Influenza Type B (PCR) Negative (Neg) 06/03/22 13:15 RSV (RT-PCR) Negative (Neg) 06/03/22 13:15 SARS-CoV-2, RNA, NAAT See Comment (NEGATIVE) 06/03/22 12:09 First/Repeat Specimen Cancelled 06/05/22 09:19 Gestational Age Cancelled 06/05/22 09:19 Estimated Delivery Date Cancelled 06/05/22 09:19 Est Date Determined By Cancelled 06/05/22 09:19 Maternal Race Cancelled 06/05/22 09:19 Maternal Weight Cancelled 06/05/22 09:19 Maternal Diabetes Cancelled 06/05/22 09:19 Number of Fetuses Cancelled 06/05/22 09:19 Maternal Scrn Egg Donor Cancelled 06/05/22 09:19 Donor Age or Cancelled 06/05/22 09:19 AFP Triple Screen Cancelled 06/05/22 09:19 Prev Trisomy 21 Preg Cancelled 06/05/22 09:19 Maternal Serum AFP Cancelled 06/05/22 09:19 AFP MoM Cancelled 06/05/22 09:19 Maternal AFP Interp Cancelled 06/05/22 09:19 Family History NTD Cancelled 06/05/22 09:19 NTD Risk Assessment Cancelled 06/05/22 09:19 Maternal Scrn Comment Cancelled 06/05/22 09:19 Impressions Abdomen/Pelvis CT 06/03/22 11:32 CT SCAN OF THE ABDOMEN AND PELVIS WITHOUT IV CONTRAST CLINICAL HISTORY: Left lower quadrant abdominal pain. Melanotic stool. COMPARISON STUDY: Abdominal CT dated 10/26/2021. TECHNIQUE: CT scan of the abdomen and pelvis is performed from the lung bases to the proximal femora. Images are reviewed in the axial, sagittal, and coronal planes. IV contrast was not administered for this examination. Note that the examination was performed in significantly suboptimal fashion without oral and IV contrast. There is also motion artifact, as well as streak artifact from the left arm which could not be elevated above the abdomen. A dose lowering technique was utilized adhering to the principles of ALARA. CT DOSE: 1725.01 mGy.cm FINDINGS: Lung bases: The heart is mildly enlarged and without pericardial effusion. The coronary arteries are densely calcified. The lung bases are clear noting bibasilar scarring/atelectasis. Tiny hiatal hernia. Liver: The unenhanced liver is cirrhotic in morphology and heterogeneous in attenuation. There is nodularity of the hepatic surface contour. There is no intrahepatic biliary ductal dilatation. A 2.7 cm right lobe liver lesion on image #32 of 114 is highly suggestive of metastatic disease. Gallbladder: Unremarkable. Spleen: Normal in size and attenuation. Pancreas: Unremarkable. Adrenal glands: Unremarkable. Kidneys: The unenhanced kidneys demonstrate cortical atrophy and are without hydronephrosis. There are no renal calculi identified. There is no evidence of contour deforming renal mass lesion. Abdominal vasculature: The abdominal aorta is normal in course and caliber noting advanced atherosclerotic calcification. Bowel: There are scattered colonic diverticula without CT evidence of acute diverticulitis. No bowel obstruction is seen. Moderate fecal retention is noted throughout the colon. The appendix is well-visualized and normal. Peritoneum: There is no intraperitoneal free air or abdominal ascites. There is a small fat-containing umbilical hernia. Lymphadenopathy: None. Pelvic viscera: Evaluation of the pelvis is degraded by streak artifact from a left hip arthroplasty. The prostate gland is enlarged and heterogeneous. Brachytherapy implants are in place. The bladder is distended, and the wall appears thickened/trabeculated indicating chronic outlet obstruction. Skeletal structures: The skeletal structures are osteopenic. There is a large expansile lesion eroding the left posterolateral 8th rib seen on axial image #75. The soft tissue component of this lesion measures 7.2 x 5.5 cm. Numerous additional subtle osteolytic lesions are suggested. There is moderate lumbosacral spondylosis. A chronic superior endplate compression deformity is seen in the body of L5. A left hip arthroplasty is in place. IMPRESSION: 1. No acute infectious or inflammatory findings are identified in the abdomen or pelvis. 2. Moderate constipation. 3. Numerous subtle osteolytic bone lesions are suggested. Additionally, there is a large destructive/expansile lesion in the left 8th rib with a large soft tissue component. This is new from 10/26/2021. Neoplasm is the diagnosis of exclusion. Myeloma with a plasmacytoma of the 8th rib could potentially have this appearance. 4. A 2.7 cm low-attenuation right lobe liver lesion is indeterminant but suspicious for neoplasm/metastatic disease. 5. Cirrhotic liver morphology. 6. Brachytherapy implants are noted in the prostate. 7. Additional findings as above. ACT 112: Positive. There are findings on this exam that require communication between the performing entity and the patient following Patient Test Result Information Act ([place] Act 112) guidelines. Electronically signed by: Miguel Bloom M.D. 06/03/2022 1:[address] 06/03/22 15:36 CT OF THE CHEST WITHOUT IV CONTRAST CLINICAL HISTORY: lytic lesions on CT a/p, rib pain COMPARISON STUDY: Chest radiograph June 03, 2022. CT DOSE: 790.27 mGycm TECHNIQUE: Axial images of the chest were obtained without IV contrast. Images were reviewed in the axial, sagittal, and coronal planes. IV contrast was not administered for this examination. Automated exposure control was utilized for the study. A dose lowering technique was utilized adhering to the principles of ALARA. FINDINGS: No enlarged axillary, mediastinal or hilar lymph nodes are present. There is mild cardiomegaly and moderate coronary artery calcification. No pneumothorax or pleural effusion is noted. There is no consolidation to suggest pneumonia. Note is made of an expansile destructive lesion of the lateral left eighth rib that measures 6.7 x 5.9 cm. This corresponds to the finding on prior chest radiograph. A 1.6 cm lesion within the proximal right humeral shaft on image 43 of 326 is noted. There may be innumerable tiny lytic rib lesions. There are no suspicious pulmonary nodules. An indeterminate 2.9 cm right hepatic lobe lesion is noted. This was depicted on abdominal CT performed earlier today. IMPRESSION: 1. 6.7 x 5.9 cm destructive expansile lesion within the lateral left eighth rib. Additional proximal right humeral diaphyseal lesion and suspected tiny lytic rib lesions. These are consistent with a neoplastic etiology and myeloma with plasmacytoma of the left eighth rib is a consideration. Metastatic disease could appear similar. 2. No suspicious pulmonary nodules. 3. No thoracic lymphadenopathy. 4. Indeterminate 2.9 cm right hepatic lobe lesion, as shown on abdominal CT performed earlier today. ACT 112: Negative or not required by law. Electronically signed by: Jose Ontiveros M.D. 06/03/2022 4:38 PM Biopsy Ultrasound 06/08/22 09:09 US biopsy softtiss mass/muscle CLINICAL HISTORY: 6.7 x 5.9 cm lesion within lat 8th rib Comparison: None available at the time of this dictation. TECHNIQUES/FINDINGS: Following explanation of techniques, benefits and potential complications, informed consent was obtained from the patient. The patient was brought to the procedure room and placed supine on the stretcher. The preliminary ultrasound of the left rib region demonstrated a large soft tissue mass. The patient was then prepped and draped in the usual standard fashion. 2% Lidocaine was used for local anesthesia. The patient's vital signs, EKG and oxygen saturation were continuously monitored by the nursing staff. "Time out" was called, including patient's name, medical record number and date of , and the procedure to be performed was verified prior to beginning the procedure. Under ultrasound guidance, a 18-gauge biopsy needle with a 2 cm throw was used to obtain 2 core biopsies. 2 FNAs were also performed with 25 and 22-gauge needles. The samples were immediately given to standby cytology for analysis. Hemostasis was achieved with manual compression. The patient tolerated the procedure well with no immediate complications. Impression: Successful biopsy of the left rib mass under ultrasound guidance. ACT 112: Negative or not required by law. Electronically signed by: Fritz Weber M.D. 06/08/2022 1:48 PM Chest X-Ray 06/08/22 12:00 XR chest inspiration/expiratio CLINICAL HISTORY: s/p chest wall biopsy TECHNIQUE: Inspiration and expiration frontal views were obtained. Comparison: Comparison is made to chest radiograph 06/07/2022 FINDINGS: No lines and tubes are seen. Calcified aortic knob is seen. The lungs are clear. No evidence of pleural effusion or pneumothorax. A large left-sided chest wall mass is again seen. IMPRESSION: No acute abnormality, in particular no evidence of pneumothorax in this patient status post left chest wall biopsy. ACT 112: Negative or not required by law. Electronically signed by: Fritz Weber M.D. 06/08/2022 12:50 PM Ordered Studies 06/03/22 11:32 CT abd pelvis wo con Stat 06/03/22 15:36 CT chest diagnostic wo con Routine 06/08/22 09:09 US biopsy softtiss mass/muscle Routine 06/08/22 11:21 US FNA w/img 1st lesion Routine Hospital Course (1) Rib pain on left side: (2) Abdominal pain: (3) Abnormal computed tomography angiography (CTA) of abdomen and pelvis: (4) Complicated UTI (urinary tract infection): (5) Parkinsons: (6) Diabetes mellitus, type II: (7) (HFpEF) heart failure with preserved ejection fraction: (8) CKD (chronic kidney disease), stage III: (9) History of prostate cancer: (10) Chronic back pain: (11) Nocturnal hypoxemia: Plan Patient is an 78 yr old male with PMH of type 2 diabetes, Parkinson's disease, diastolic dysfunction, hypertension, CKD 3, chronic lower back pain with narcotic dependence, depression, history of prostate cancer, nocturnal hypoxemia not on oxygen and other medical problems listed below who presents with left- sided chest and lower abdominal pain. Metastatic disease Pleuritic/left rib pain secondary to above DD: Multiple myeloma/plasmacytoma , hepatocellular carcinoma with metastasis H/O prostate cancer --CT Chest: 6.7 x 5.9 cm destructive expansile lesion within the lateral left eighth rib. Additional proximal right humeral diaphyseal lesion and suspected tiny lytic rib lesions. These are consistent with a neoplastic etiology and myeloma with plasmacytoma of the left eighth rib is a consideration. Metastatic disease could appear similar. No suspicious pulmonary nodules. No thoracic lymphadenopathy. Indeterminate 2.9 cm right hepatic lobe lesion, as shown on abdominal CT performed earlier today. --CT ABD: No acute infectious or inflammatory findings are identified in the ab domen or pelvis. Moderate constipation. Numerous subtle osteolytic bone lesions are suggested. Additionally, there is a large destructive/expansile lesion in the left 8th rib with a large soft tissue component. This is new from 10/26/2021. Neoplasm is the diagnosis of exclusion. Myeloma with a plasmacytoma of the 8th rib could potentially have this appearance. A 2.7 cm low-attenuation right lobe liver lesion is indeterminant but suspicious for neoplasm/metastatic disease. Cirrhotic liver morphology. Brachytherapy implants are noted in the prostate. -SPEP, UPEP pending -PSA 0.009, free PSA 0.01 -GREG, quantitative immunoglobulins, serum free light chain, AFP and CEA -Appreciate oncology and Radiation oncology input S/P Left 8th rib lesion biopsy--on 06/08/22 Pain control, incentive spirometry Advised to follow up with Oncology/Radiation Oncology upon discharge Suspected complicated UTI--ruled out H/O prostate cancer Urine culture: Mixed probable skin fr[place]ka Received ceftriaxone empirically Bladder scan PRN for retention Parkinson's disease Continue Sinemet fall precautions Ambulates with walker DM II HbA1c 9.8 Hold home agents Basal/bolus insulin while admitted per protocol BSG AC HS HFpEF Appears euvolemic Continue torsemide, spironolactone CKD III Baseline Cr mid-high 1s Cr at baseline Monitor renal function Chronic back pain On narcotics Nocturnal hypoxemia Noted on previous admission. Declines further sleep workup or supplemental oxygen DVT Px: SQ heparin Code status: DNR/DNI Disposition Home with Home Health Total Time Total Time Spent Total Time Spent (In Minutes): 54 minutes Discharge Plan Discharge Items Patient Disposition: Home - Home Health Services Reason For Visit: RIB PAIN, PARMJIT, LYTIC LESIONS ON IMAGING Discharge Diagnosis: Metastatic disease Left 8th rib and Liver lesion Activity: Per Instructions section Exercise/Sports: Wait until after follow-up appointment Non-emergency contact: Primary Care Provider and Oncologist Call non-emergency contact if: you have any medication questions, your symptoms worsen, your pain is concerning for you and you have a fever Follow-up/Referrals: Latha Gómez, [Primary Care Provider] - Diet: Carb Consistent or DM2 and Heart Healthy Addtl Attending Provider Instructions: Follow-up with your primary care physician in 1 week Follow-up with your oncologist in 2-3 weeks Follow up with your Radiation Oncologist Dr.Veeral Hamm in 2-3 weeks --Your Pathology results are pending at the time of discharge. Follow up with your physician for results Seek immediate medical attention if your symptoms reoccur or worsen Please take all medications as instructed on discharge list below. Please call if you have any questions or problems. You can reach a [facility] hospitalist on duty at [facility] 24 hours a day by calling [phone] Pending Studies at Discharge: Yes Studies:: Pathology results Stand-Alone Forms: My [facility] [employer]ORE MEDIA, Smoking Cessation Medications and DC Order Prescriptions: New docusate sodium 100 mg Capsule 100 mg PO BID PRN (Reason: constipation) Qty: 30 0RF Continued metformin 500 mg Tablet Extended Release 24 Hr 850 mg PO BIDM hydrocodone-acetaminophen 10-325 mg tablet 1 tab PO TID PRN (Reason: Severe Pain (Scale Score 7-10)) Rx Instructions: pain 6-10 aspirin 81 mg Tablet,Delayed Release (Dr/Ec) 81 mg PO DAILY spironolactone 25 mg tablet 12.5 mg PO DAILY tamsulosin 0.4 mg capsule 0.4 mg PO DAILY@1800 potassium chloride 10 mEq tablet,ER particles/crystals 10 meq PO DAILY omega 7-sdx-zfn-fish oil 1,000 mg (120 mg-180 mg) Capsule 1 cap PO DAILY nystatin 100,000 unit/gram Cream 1 applic EXT BID Qty: 30 0RF pantoprazole 40 mg tablet,delayed release (DR/EC) 40 mg PO DAILY allopurinol 300 mg tablet 300 mg PO QAM pravastatin 20 mg tablet 20 mg PO HS gabapentin 100 mg capsule 100 mg PO BID carbidopa-levodopa 25-100 mg tablet 1 tab PO TID torsemide 20 mg tablet 20 mg PO DAILY Rx Instructions: MAY TAKE ADDITIONAL DOSE IF WT GAIN > 5 LBS. Jardiance 10 mg tablet 10 mg PO DAILY citalopram 20 mg tablet 20 mg PO DAILY famotidine 20 mg tablet 20 mg PO HS Trulicity 4.5 mg/0.5 mL pen injector 4.5 mg SUBCUT WK insulin glargine [Lantus Solostar U-100 Insulin] 100 unit/mL (3 mL) insulin pen 30 unit subcut BID Discharge Orders: Discharge Order (Routine); Ordered 06/08/22 Ordered By: Lito Arguello Admission Data Admit Date/Time: 06/03/22 14:23 Attending Provider: Lito Arguello Admit Provider: Alina Patrick Primary Care Provider: Latha Gómez Other Providers: Alina Patrick ; Shy Jackson ; Belen Hamm
--- NOTE | 2022-06-08 14:32 | Ultrasound Report ---
US biopsy softtiss mass/muscle CLINICAL HISTORY: 6.7 x 5.9 cm lesion within lat 8th rib Comparison: None available at the time of this dictation. TECHNIQUES/FINDINGS: Following explanation of techniques, benefits and potential complications, [facility] consent was obtained from the patient. The patient was brought to the procedure room and placed supine on the stretcher. The preliminary ult rasound of the left rib region demonstrated a large soft tissue mass. The patient was then prepped an d draped in the usual standard fashion. 2% Lidocaine was used for local anesthesia. The patient's vit al signs, EKG and oxygen saturation were continuously monitored by the nursing staff. "Time out" was called, including patient's name, medical record number and date of , and the pro cedure to be performed was verified prior to beginning the procedure. Under ultrasound guidance, a 1 8-gauge biopsy needle with a 2 cm throw was used to obtain 2 core biopsies. 2 FNAs were also performe d with 25 and 22-gauge needles. The samples were immediately given to [facility] for analysis. Hemostasis was achieved with manual compression. The patient tolerated the procedure well with no imm ediate complications. Impression: Successful biopsy of the left rib mass under ultrasound guidance. ACT 112: Negative or not required by law. Electronically signed by: Frtiz Weber M.D. 06/08/2022 1:48 PM
[2022-06-08] MEDS: HYDROcodone/ACETAMINOPHEN 10/325 TAB PO PRN (15:46)
[2022-06-10 08:19] LABS: Albumin 3.4 g/dL (3.8-4.8); Alpha 1 Globulin 0.3 g/dL (0.2-0.3); Alpha 2 Globulin 0.8 g/dL (0.5-0.9); Beta-1-Globulin 0.5 g/dL (0.4-0.6); Beta-2-Globulin 0.4 g/dL (0.2-0.5); Gamma Globulin 1.1 g/dL (0.8-1.7); Monoclonal Protein Band 2 DNR g/dL (NONE DETECTED); Monoclonal Protein Band 3 DNR g/dL (NONE DETECTED); Total Protein 6.4 g/dL (6.1-8.1)
--- NOTE | 2022-06-15 09:54 | Coding Query ---
PATHOLOGY To promote full compliance with coding requirements relating to patient care, physician participation is requested in all cases of computer language coder uncertainty. Please assist us with the question(s) below: Please review the Pathology report and please document any relevant diagnosis(es) below. 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 Rib mass biopsy was obtained. Thanks for your help! WENDY Mckoy CCS Diagnosis(es): metastatic carcinoma MTDD
== END 2022-06-08 16:43 | disposition home health service (06) | DRG 478 ==
LOC: ED 11:22 → 2W 14:23 → SUATTDRO 14:23 → 2W 15:34

== ENCOUNTER 2022-07-26 09:37 | Inpatient (IN) ==
[2022-07-26] MEDS ORDERED: ONDANSETRON INJ 2 MG/ML 2 ML VIAL IV STA (09:50)
[2022-07-26] MEDS ORDERED: SODIUM CHLORIDE 0.9% 500 ML IV STA (09:50)
--- NOTE | 2022-07-26 09:57 | Emergency Department Note ---
Impression & Plan Metastatic adenocarcinoma, Chronic pain of right hip ED Provider Note NAME: RALPH HAQUE AGE: 82 SEX: M : 1940 ARRIVES VIA: Ambulance INFORMANT: Patient, ED PROVIDER(S): Kurtis Valadez DO CHIEF COMPLAINT: Hip pain HPI: The patient is an 82-year-old gentleman who presented to the emergency department for an evaluation of hip pain. The patient describes severe pain in his right hip that began this morning. He has had hip pain for many months. He has had testing to determine if there was any kind of bony abnormality which was negative. He was recently diagnosed with a mass on his rib which was felt to be secondary to metastatic carcinoma but as far as the patient knows there is no primary carcinoma yet. He has received radiation therapy to this area on his chest. He states that he was walking today at his home when he felt severe pain in his right hip. He is unable to put any weight on his right hip. He denies having any trauma or back pain. He denies having any chest pain or difficulty breathing. Has been taking his outpatient medication with only minimal relief of his symptoms. ROS: See above HPI for pertinent positives & negatives. A total of 10 systems reviewed and were otherwise negative. PAST MEDICAL HISTORY: See Below PAST SURGICAL HISTORY: See Below FAMILY HISTORY: See Below SOCIAL HISTORY: See Below HOME MEDICATIONS: See Below ALLERGIES: See Below VITALS: See Below PHYSICAL EXAMINATION: GENERAL: Patient is awake and alert. The patient is very anxious appearing. He appears to be very uncomfortable. EYES: The conjunctivae are clear. The pupils are round and reactive. EARS, NOSE, MOUTH AND THROAT: The nose is without any evidence of any deformity. NECK: The neck is nontender and supple. RESPIRATORY: Normal respiratory effort is noted there is no evidence of wheezing rhonchi or rales CARDIOVASCULAR: Regular rate and rhythm noted there no murmurs rubs or gallops normal S1 normal S2. GASTROINTESTINAL: The abdomen is soft. Abdomen is nontender. BACK: No midline tenderness was noted to palpation. There is no step-off. MUSCULOSKELETAL/EXTREMITIES: There is no shortening or deformity of the right lower extremity but patient has very severe pain with any range of motion testing. SKIN: Skin is warm and dry. There is no significant pedal edema. There is no tenderness over the right inguinal region. Pulses are symmetric in both groins and both feet. NEUROLOGIC: Patient is awake alert and oriented x3. MEDICAL DECISION MAKING: The patient is an 82-year-old male who presented to the emergency department for an evaluation of right hip pain. The patient's had ongoing hip pain for many months but recently he was diagnosed with a metastatic lesion on his rib. He does have a remote history of prostate cancer. The area on the right rib was biopsied and appears to be consistent with an adenocarcinoma. The patient was treated with IV pain medication in the emergency department. He was reevaluated multiple times. The patient is known to palliative medicine. Dr. Islas came to the emergency department to evaluate him. Plans were laid down to try to get the patient into hospice but at this time the patient's pain still require some intense management. They would prefer the patient be brought in for inpatient management as well as further testing prior to initiating hospice if this is the direction the patient and family decided to go. I discussed patient's condition with the on-call [facility]. They have agreed to evaluate the patient in the emergency department for further management and disposition. Triage Nursing notes reviewed. Prior medical records reviewed Vital Signs: reviewed and remarkable for elevated blood pressure. Differential diagnosis: Fracture, subluxation, dislocation, contusion, ligamentous injury, neurovascular, compartment syndrome, rhabdomyolysis, as well as other pathologies. ER treatment provided: See below Diagnostics interpreted by me: ECG: EKG was obtained in the emergency department. My interpretation is normal sinus rhythm at 70 bpm. PVCs were noted with nonsustained wide complexes but this resolved spontaneously. This was compared to a tracing from June 03, 2022. The wide-complex is are new compared to the earlier tracing otherwise no changes were noted. Cardiac Monitoring: An order was placed for continuous cardiac monitoring. The monitor shows a rate of 75 bpm with sinus rhythm. Laboratory studies: As stated above and show below. Imaging studies: See below. Radiographic imaging was reviewed by myself Consultation(s): I discussed this case with Dr. Ilsas who is on for palliative medicine. She does feel the patient may benefit from further inpatient management and then if it still his wishes to set up for outpatient hospice. She does recommend MRI of the lumbar spine as well as the hip and pelvis to ensure there is no other bony abnormality such as metastatic disease causing the patient's acute presentation today. I discussed this case with Lindy who is on for the [facility] hospitalist group. They will evaluate the patient in the emergency department. Past Med/Surg History Medical History (HFpEF) heart failure with preserved ejection fraction PARMJIT (acute kidney injury) Chronic back pain Chronic back pain Chronic diastolic heart failure CKD (chronic kidney disease), stage III COVID-19 Depression Diabetes mellitus, type II Diaphragmatic hernia Diverticulitis Encephalopathy GERD (gastroesophageal reflux disease) History of prostate cancer Hyperlipidemia Hypertension Narcotic dependence Parkinsons Prostate cancer Right knee pain Type 2 diabetes mellitus Urinary tract infection Venous insufficiency Weakness generalized Surgical History History of elbow surgery History of hip replacement History of knee replacement History of transurethral resection of prostate Status post hernia repair Family History Mother Stroke Social History Smoking Status: Never smoker Tobacco Type: Smokeless Tobacco (Dip or Chew) Second Hand Exposure: No; Hx Alcohol Use: No Hx Substance Use: No Preferred Language: Slovenian Communication Ability: Effective Market Research Associate Required: No Beliefs That Will Affect Care: None marital status: / Current Living Situation: Family Current Living Situation Comment: with friends current occupational status: retired How many Children do You have: 3 Feels Safe at Home: Yes Assistive Devices: Walker Allergies Allergies Allergy/AdvReac Type Severity Reaction Status Date / Time No Known Allergies Verified 07/12/22 18:48 Home Meds Home Medications Medication Instructions Recorded Confirmed aspirin 81 mg tablet,delayed 81 mg PO DAILY 07/31/18 07/26/22 release omega 6-sgw-dfc-fish oil 1,000 mg 1 cap PO DAILY 07/31/18 07/26/22 (120 mg-180 mg) capsule potassium chloride 10 mEq 10 meq PO DAILY 07/31/18 07/26/22 tablet,extended release(part/cryst) spironolactone 25 mg tablet 12.5 mg PO DAILY 07/31/18 07/26/22 tamsulosin 0.4 mg capsule 0.4 mg PO DAILY@1800 07/31/18 07/26/22 allopurinol 300 mg tablet 300 mg PO QAM 10/26/21 07/26/22 carbidopa 25 mg-levodopa 100 mg 1 tab PO TID 10/26/21 07/26/22 tablet empagliflozin 10 mg tablet 10 mg PO DAILY 10/26/21 07/26/22 (Jardiance) gabapentin 100 mg capsule 100 mg PO BID 10/26/21 07/26/22 pantoprazole 40 mg tablet,delayed 40 mg PO DAILY 10/26/21 07/26/22 release pravastatin 20 mg tablet 20 mg PO HS 10/26/21 07/26/22 torsemide 20 mg tablet 20 mg PO DAILY 10/26/21 07/26/22 citalopram 20 mg tablet 20 mg PO DAILY 11/07/21 07/26/22 famotidine 20 mg tablet 20 mg PO HS 11/07/21 07/26/22 dulaglutide 4.5 mg/0.5 mL 4.5 mg subcut WK 06/03/22 07/26/22 subcutaneous pen injector (Trulicity) insulin glargine 100 unit/mL (3 30 unit subcut BID 06/03/22 07/26/22 mL) subcutaneous pen (Lantus Solostar U-100 Insulin) nystatin 100,000 unit/gram topical 1 applic EXT BID PRN Skin 07/12/22 07/26/22 cream Irritation oxycodone 10 mg tablet 10 mg PO Q4H PRN Pain 07/19/22 07/26/22 metformin 850 mg tablet 850 mg PO BID 07/26/22 07/26/22 Previous Rx's Medication Instructions Recorded docusate sodium 100 mg capsule 100 mg PO BID PRN constipation #30 06/08/22 caps Results & Data (ED) Vital Signs Vital Signs - 24 hr 07/26/22 09:39 07/26/22 10:07 07/26/22 10:48 Temperature 36.8 C Temperature Source Oral Pulse Rate 78 Pulse Rate [Left] 75 Pulse Rhythm [Left] Regular Pulse Strength [Left] Normal Respiratory Rate 20 18 Respiratory Effort / Characteristics Non-Labored Non-Labored Respiratory Depth Normal Normal Respiratory Pattern Regular Blood Pressure 168/83 H Blood Pressure [Left Arm] 144/71 H Blood Pressure Mean 111 Blood Pressure Mean [Left Arm] 95 Blood Pressure Position [Left Arm] Lying Pulse Oximetry 95 98 98 Oxygen Delivery Method Room Air Room Air Room Air Sepsis Recent Fever Within 48 Hours No Sepsis New/Unexplained Change in Mental Status N/A Sepsis Action Taken by Nursing No Action Required Home Medications Current Medication List: was personally reviewed by me Laboratory Data Attestation: I reviewed the patient's lab results. 07/26/22 10:10 07/26/22 10:11 Lab Results 07/26/22 07/26/22 07/26/22 Range/Units 09:55 10:10 10:11 WBC 11.01 H (4.8-10.8) K/ul RBC 4.55 L (4.70-6.10) M/uL Hgb 14.2 (14.0-18.0) g/dl Hct 42.3 (42.0-52.0) % MCV 93.0 (80.0-100.0) fL MCH 31.2 (25.0-34.0) pg MCHC 33.6 (32.0-36.0) g/dL RDW Std Deviation 46.3 (36.4-46.3) fL RDW Coeff of Faiza 13.8 (11.5-14.5) % Plt Count 186 (130-400) K/uL MPV 10.9 (9.4-12.4) fL Immature Gran % (Auto) 2.3 % Neut % (Auto) 80.5 % Lymph % (Auto) 8.5 % [place] % (Auto) 7.1 % Eos % (Auto) 1.1 % Baso % (Auto) 0.5 % Neut # (Auto) 8.87 H (1.40-6.50) K/uL Lymph # (Auto) 0.94 L (1.2-3.4) K/uL [place] # (Auto) 0.78 H (0.11-0.59) K/uL Eos # (Auto) 0.12 (0-0.50) K/uL Baso # (Auto) 0.05 (0-0.2) K/uL Immature Gran # (Auto) 0.25 H (0.01-0.20) K/uL Sodium 133 L (136-145) mmol/L Potassium 4.2 (3.5-5.1) mmol/L Chloride 98 (98-107) mmol/L Carbon Dioxide 28 (21-32) mmol/L Anion Gap 7 (3-11) BUN 37 H (6-23) mg/dl Creatinine 1.42 H (0.6-1.4) mg/dl Est Cr Clr Drug Dosing 50.1 ml/min Est GFR ( Amer) 52.2 ml/min Est GFR (Non-Af Amer) 45.0 ml/min BUN/Creatinine Ratio 26.1 H (10-20) Glucose 325 H* (70-99(Fasting)) mg/dl Calcium 9.1 (8.5-10.1) mg/dl Total Bilirubin 1.1 H (0.2-1.0) mg/dl AST 45 H (13-39) U/L ALT 12 (7-52) U/L Alkaline Phosphatase 166 H (34-104) U/L Total Protein 6.9 (6.0-8.3) gm/dl Albumin 3.8 (3.4-5.0) gm/dl Globulin 3.1 (2.5-4.0) gm/dl Albumin/Globulin Ratio 1.2 (0.9-2) Lipase 8 L (11-82) U/L SARS-CoV-2, RNA, NAAT NEGATIVE (NEGATIVE) 07/26/22 Range/Units 14:15 WBC (4.8-10.8) K/ul RBC (4.70-6.10) M/uL Hgb (14.0-18.0) g/dl Hct (42.0-52.0) % MCV (80.0-100.0) fL MCH (25.0-34.0) pg MCHC (32.0-36.0) g/dL RDW Std Deviation (36.4-46.3) fL RDW Coeff of Faiza (11.5-14.5) % Plt Count (130-400) K/uL MPV (9.4-12.4) fL Immature Gran % (Auto) % Neut % (Auto) % Lymph % (Auto) % [place] % (Auto) % Eos % (Auto) % Baso % (Auto) % Neut # (Auto) (1.40-6.50) K/uL Lymph # (Auto) (1.2-3.4) K/uL [place] # (Auto) (0.11-0.59) K/uL Eos # (Auto) (0-0.50) K/uL Baso # (Auto) (0-0.2) K/uL Immature Gran # (Auto) (0.01-0.20) K/uL Sodium (136-145) mmol/L Potassium (3.5-5.1) mmol/L Chloride (98-107) mmol/L Carbon Dioxide (21-32) mmol/L Anion Gap (3-11) BUN (6-23) mg/dl Creatinine (0.6-1.4) mg/dl Est Cr Clr Drug Dosing ml/min Est GFR ( Amer) ml/min Est GFR (Non-Af Amer) ml/min BUN/Creatinine Ratio (10-20) Glucose (70-99(Fasting)) mg/dl Calcium (8.5-10.1) mg/dl Total Bilirubin (0.2-1.0) mg/dl AST (13-39) U/L ALT (7-52) U/L Alkaline Phosphatase (34-104) U/L Total Protein (6.0-8.3) gm/dl Albumin (3.4-5.0) gm/dl Globulin (2.5-4.0) gm/dl Albumin/Globulin Ratio (0.9-2) Lipase (11-82) U/L SARS-CoV-2, RNA, NAAT NEGATIVE (NEGATIVE) Administered Medications Discontinued Medications Sodium Chloride (Nss) 500 mls @ 999 mls/hr IV .Q31M STA Stop: 07/26/22 10:20 Last Infusion: 07/26/22 10:55 Dose: 0 mls/hr Documented By: Admin: 07/26/22 10:09 Dose: 999 mls/hr Documented By: LUC Morphine Sulfate (Morphine Sulfate 4 Mg/Ml 1 Ml Carp\Vial) 4 mg IV Q15M PRN PRN Reason: Pain Stop: 08/09/22 09:49 Last Admin: 07/26/22 12:12 Dose: 4 mg Documented By: Admin: 07/26/22 10:08 Dose: 4 mg Documented By: LUC Ondansetron HCl (Ondansetron Inj 2 Mg/Ml 2 Ml Vial) 4 mg IV NOW STA Stop: 07/26/22 09:51 Last Admin: 07/26/22 10:08 Dose: 4 mg Documented By: LUC Imaging Data Attestation: I personally reviewed and interpreted this imaging study as follows: My Impression: 1 view chest x-ray was obtained in the emergency department. My interpretation is no definite filtrate, no free air. Plain x-rays of the right hip and pelvis were obtained. Interpretation is no definite fracture. Final read is pending. Radiologist's Impression: Hip/Pelvis X-Ray 07/26/22 09:50 XR hip RT 2V w pelvis CLINICAL HISTORY: pain TECHNIQUE: 2 views of the right hip and single frontal view of the pelvis were obtained. Comparison: None available at the time of this dictation. FINDINGS: There is no evidence of an acute fracture. Prostate therapy beads are seen. There is a left total hip arthroplasty. Degenerative changes are seen in the hip joint. No soft tissue abnormality is seen. IMPRESSION: Degenerative changes without evidence of acute abnormality. ACT 112: Negative or not required by law. Electronically signed by: Fritz Weber M.D. 07/26/2022 11:12 AM Chest X-Ray 07/26/22 09:52 XR chest 1V portable CLINICAL HISTORY: rib mass TECHNIQUE: Single frontal radiograph of the chest was obtained. Comparison: Comparison is made to chest radiograph 07/12/[address] chest 06/24/2022 FINDINGS: No lines and tubes are seen. Cardiomegaly is noted. The aortic arch is calcified. Lungs are underinflated but clear. No evidence of pleural effusion or pneumothorax. Large left lower chest wall mass is again seen bony destruction of the eighth rib is better seen in cross sectional imaging. IMPRESSION: Redemonstration of left rib mass. No acute cardiopulmonary abnormalities. ACT 112: Negative or not required by law. Electronically signed by: Fritz Weber M.D. 07/26/2022 11:16 AM Discharge Plan Visit Data Chief Complaint: Leg Injury/Pain ED Provider: Kurtis Valadez Discharge Problem: Metastatic adenocarcinoma, Chronic pain of right hip Patient Disposition: Being Evaluated by Hospitalist Forms Stand Alone Forms: My [facility] [employer] Prescriptions Prescriptions: No Action oxycodone 10 mg tablet 10 mg PO Q4H PRN (Reason: Pain) aspirin 81 mg Tablet,Delayed Release (Dr/Ec) 81 mg PO DAILY spironolactone 25 mg tablet 12.5 mg PO DAILY tamsulosin 0.4 mg capsule 0.4 mg PO DAILY@1800 potassium chloride 10 mEq tablet,ER particles/crystals 10 meq PO DAILY omega 0-kdy-apd-fish oil 1,000 mg (120 mg-180 mg) Capsule 1 cap PO DAILY nystatin 100,000 unit/gram cream 1 applic EXT BID PRN (Reason: Skin Irritation) metformin 850 mg tablet 850 mg PO BID pantoprazole 40 mg tablet,delayed release (DR/EC) 40 mg PO DAILY allopurinol 300 mg tablet 300 mg PO QAM pravastatin 20 mg tablet 20 mg PO HS gabapentin 100 mg capsule 100 mg PO BID carbidopa-levodopa 25-100 mg tablet 1 tab PO TID torsemide 20 mg tablet 20 mg PO DAILY Rx Instructions: MAY TAKE ADDITIONAL DOSE IF WT GAIN > 5 LBS. Jardiance 10 mg tablet 10 mg PO DAILY citalopram 20 mg tablet 20 mg PO DAILY famotidine 20 mg tablet 20 mg PO HS Trulicity 4.5 mg/0.5 mL pen injector 4.5 mg SUBCUT WK insulin glargine [Lantus Solostar U-100 Insulin] 100 unit/mL (3 mL) insulin pen 30 unit subcut BID docusate sodium 100 mg Capsule 100 mg PO BID PRN (Reason: constipation) Qty: 30 0RF Referrals Referrals: Latha Gómez DO [Primary Care Provider] -
[2022-07-26] MEDS: MoRPHine SULFATE 4 MG/ML 1 ML CARP\\VIAL IV PRN ×2 (10:08→12:12)
[2022-07-26 10:54] LABS: Basophils # (auto) 0.05 K/uL (0-0.2); Basophils % (auto) 0.5 %; Eosinophils # (auto) 0.12 K/uL (0-0.50); Eosinophils % (auto) 1.1 %; Hematocrit (blood only) 42.3 % (42.0-52.0); Hemoglobin 14.2 g/dl (14.0-18.0); Immature Granulocytes # (auto) 0.25 K/uL (0.01-0.20); Immature Granulocytes % (auto) 2.3 %; Lymphocytes # (auto) 0.94 K/uL (1.2-3.4); Lymphocytes % (auto) 8.5 %; Mean Corpuscular Hemoglobin 31.2 pg (25.0-34.0); Mean Corpuscular Hgb Conc 33.6 g/dL (32.0-36.0); Mean Platelet Volume 10.9 fL (9.4-12.4); Monocytes # (auto) 0.78 K/uL (0.11-0.59); Monocytes % (auto) 7.1 %; Neutrophils # (auto) 8.87 K/uL (1.40-6.50); Neutrophils % (auto) 80.5 %; Platelet Count 186 K/uL (130-400); RDW Coefficient of Variation 13.8 % (11.5-14.5); RDW Standard Deviation 46.3 fL (36.4-46.3); Red Blood Count 4.55 M/uL (4.70-6.10); White Blood Count 11.01 K/ul (4.8-10.8)
--- NOTE | 2022-07-26 11:13 | XRay Report ---
XR hip RT 2V w pelvis CLINICAL HISTORY: pain TECHNIQUE: 2 views of the right hip and single frontal view of the pelvis were obtained. Comparison: None available at the time of this dictation. FINDINGS: There is no evidence of an acute fracture. Prostate therapy beads are seen. There is a left total hip arthroplasty. Degenerative changes are seen in the hip joint. No soft tissue abnormality is seen. IMPRESSION: Degenerative changes without evidence of acute abnormality. ACT 112: Negative or not required by law. Electronically signed by: Fritz Weber M.D. 07/26/2022 11:12 AM
--- NOTE | 2022-07-26 11:18 | XRay Report ---
XR chest 1V portable CLINICAL HISTORY: rib mass TECHNIQUE: Single frontal radiograph of the chest was obtained. Comparison: Comparison is made to chest radiograph 07/12/[address] chest 06/24/2022 FINDINGS: No lines and tubes are seen. Cardiomegaly is noted. The aortic arch is calcified. Lungs are underinfl ated but clear. No evidence of pleural effusion or pneumothorax. Large left lower chest wall mass is again seen bony destruction of the eighth rib is better seen in cross sectional imaging. IMPRESSION: Redemonstration of left rib mass. No acute cardiopulmonary abnormalities. ACT 112: Negative or not required by law. Electronically signed by: Fritz Weber M.D. 07/26/2022 11:16 AM
[2022-07-26 11:21] LABS: Albumin Globulin Ratio 1.2 (0.9-2); Albumin Level 3.8 gm/dl (3.4-5.0); BUN Creatinine Ratio 26.1 (10-20); Bilirubin,Total 1.1 mg/dl (0.2-1.0); Calcium 9.1 mg/dl (8.5-10.1); Creatinine Clr Calc Pharmacy 50.1 ml/min; Est GFR (African American) 52.2 ml/min; Globulin 3.1 gm/dl (2.5-4.0); Potassium 4.2 mmol/L (3.5-5.1); Total Protein 6.9 gm/dl (6.0-8.3)
[2022-07-26] MEDS ORDERED: ACETAMINOPHEN 500 MG TAB PO STA (14:44)
[2022-07-26] MEDS ORDERED: oxyCODONE HCL IR 5 MG TAB (IMMEDIATE RELEASE) PO STA (14:54)
--- NOTE | 2022-07-26 15:18 | History & Physical Report ---
Date of Service July 26, 2022 Assessment & Plan (1) Neoplasm related pain (acute) (chronic): (2) Neoplasm of rib: Plan: Admit to [facility] [place] Patient presenting from home with reports of right hip pain radiating into the right leg. Recently admitted to [facility] 06/03 through 06/08 for left rib pain and patient was found to have a left eighth rib mass. 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 Specimen was sent for molecular testing however this is pending. Patient completed radiation therapy to left eighth rib lesion. Pain today seems to be radicular in nature, potentially due to new malignant lesion. Will obtain CT lumbar spine and CT right hip. Discussed with Dr. Islas with palliative medicine, will await final results of molecular testing to determine if patient is eligible for immunotherapy. Consideration for additional palliative radiation however may be difficult for patient to travel to hospital daily for treatments. Patient did state he does not want any chemotherapy. For pain control, will increase gabapentin to 100 mg in the morning and 300 mg at bedtime, start methadone 2.5 mg HS, Lidoderm patch, scheduled Tylenol, continue oxycodone 10 mg q4h PRN Oncology consult, Dr. Jackson (3) Diabetes mellitus, type II: Plan: Hgb A1c 9.8 on 05/2022 Hold oral agents, continue home dose Lantus. Add NovoLog sliding scale Glucose 325, no signs of DKA Pharmacy consult (4) CKD (chronic kidney disease), stage III: Plan: Baseline creatinine low-mid 1s Creatinine 1.4 today Monitor renal functions (5) (HFpEF) heart failure with preserved ejection fraction: Plan: Appears euvolemic Continue home dose torsemide and spironolactone DVT PROPHYLAXIS SQ heparin I spent a total of 90 minutes coordinating, documenting, and providing care for this patient excluding time spent in the performance of separately billed services. This included personally reviewing all current laboratories and imaging studies, medication reconciliation, outpatient chart review, and discussion with specialists. History of Present Illness Chief Complaint: Right hip pain Primary Care Provider: Latha Gómez DO 82-year-old male with PMH DM type II, dyslipidemia, chronic diastolic CHF, HTN, CKD stage III, history of prostate cancer s/p Lupron and implant, Parkinson's, depression, and other problems listed below who presents to the ED for evaluation of right hip pain. History obtained from patient, daughter over the telephone, review of outpatient PCP records, recent inpatient admission, and discussion with Dr. Islas palliative medicine. Patient recently admitted to [facility] 06/03 through 06/08 for left rib pain and patient was found to have a left eighth rib mass. 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 Specimen was sent for molecular testing however this is pending. Patient completed radiation therapy to left eighth rib lesion. Over the past few weeks, patient has had increasing right hip pain radiating into the right leg. Patient's hydrocodone was changed to oxycodone with minimal improvement. Patient reports his right leg feels very weak. He has not had any falls. Patient denies chest pain and shortness of breath. No lightheadedness, dizziness, diaphoresis, syncopal events. Denies recent illnesses, fevers, chills. Appetite remains good, denies abdominal pain, nausea, vomiting, diarrhea. Has urinary incontinence which is unchanged from baseline. Denies dysuria and hematuria. In the ED, patient is hemodynamically stable. Labs show creatinine 1.4, glucose 325. Hip and pelvis x-ray unremarkable for acute findings. Patient was given IVF, IV morphine. Dr. Islas with palliative medicine completed consultation in the ED. Allergies Allergy/AdvReac Type Severity Reaction Status Date / Time No Known Allergies Verified 07/12/22 18:48 Home Medications Medication Instructions Recorded Confirmed Type aspirin 81 mg tablet,delayed 81 mg PO DAILY 07/31/18 07/26/22 History release omega [id number]-rya-[id number]-fish oil 1,000 mg 1 cap PO DAILY 07/31/18 07/26/22 History (120 mg-180 mg) capsule potassium chloride 10 mEq 10 meq PO DAILY 07/31/18 07/26/22 History tablet,extended release(part/cryst) spironolactone 25 mg tablet 12.5 mg PO DAILY 07/31/18 07/26/22 History tamsulosin 0.4 mg capsule 0.4 mg PO DAILY@1800 07/31/18 07/26/22 History allopurinol 300 mg tablet 300 mg PO QAM 10/26/21 07/26/22 History carbidopa 25 mg-levodopa 100 mg 1 tab PO TID 10/26/21 07/26/22 History tablet empagliflozin 10 mg tablet 10 mg PO DAILY 10/26/21 07/26/22 History (Jardiance) gabapentin 100 mg capsule 100 mg PO BID 10/26/21 07/26/22 History pantoprazole 40 mg tablet,delayed 40 mg PO DAILY 10/26/21 07/26/22 History release pravastatin 20 mg tablet 20 mg PO HS 10/26/21 07/26/22 History torsemide 20 mg tablet 20 mg PO DAILY 10/26/21 07/26/22 History citalopram 20 mg tablet 20 mg PO DAILY 11/07/21 07/26/22 History famotidine 20 mg tablet 20 mg PO HS 11/07/21 07/26/22 History dulaglutide 4.5 mg/0.5 mL 4.5 mg subcut WK 06/03/22 07/26/22 History subcutaneous pen injector (Trulicity) insulin glargine 100 unit/mL (3 30 unit subcut BID 06/03/22 07/26/22 History mL) subcutaneous pen (Lantus Solostar U-100 Insulin) docusate sodium 100 mg capsule 100 mg PO BID PRN constipation #30 06/08/22 07/26/22 Rx caps nystatin 100,000 unit/gram topical 1 applic EXT BID PRN Skin 07/12/22 07/26/22 History cream Irritation oxycodone 10 mg tablet 10 mg PO Q4H PRN Pain 07/19/22 07/26/22 History metformin 850 mg tablet 850 mg PO BID 07/26/22 07/26/22 History Past Med/Surg History Medical History (HFpEF) heart failure with preserved ejection fraction Chronic back pain CKD (chronic kidney disease), stage III COVID-19 Depression Diabetes mellitus, type II Diaphragmatic hernia Diverticulitis Encephalopathy GERD (gastroesophageal reflux disease) History of prostate cancer Hyperlipidemia Hypertension Monoarticular arthritis Narcotic dependence Parkinsons Prostate cancer "Prostate, adenocarcinoma, cristina 3 + 3, 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, cT1c, group I TREATMENT: Prostate seed implant - Cesium 131 - 06/30/2011 - monotherapy alone, Lupron for 6 months prior to implantation." Right knee pain Type 2 diabetes mellitus Venous insufficiency Weakness generalized Surgical History History of elbow surgery ORIF of left elbow fracture in 1995 History of hip replacement History of knee replacement History of transurethral resection of prostate 2005 Status post hernia repair Family History Mother Stroke Social History Smoking Status: Former smoker Tobacco Type: Smokeless Tobacco (Dip or Chew) Second Hand Exposure: No; Do You Dip or Chew Tobacco: No; Tobacco Cessation Education Requested by Patient: No Hx Alcohol Use: No Hx Substance Use: No Preferred Language: Nigerian Communication Ability: Effective [employer] Required: No Beliefs That Will Affect Care: None marital status: / Current Living Situation: Family Current Living Situation Comment: with friends current occupational status: retired How many Children do You have: 3 Other Information That Helps Us Care for You: No Feels Safe at Home: Yes Safety Concerns: Feels Safe At This Time Assistive Devices: Walker Review of Systems Review of Systems: ROS per HPI, all other systems reviewed and negative Physical Exam Constitutional: WD/WN, vitals as above Eyes: PERRL, conjunctivae normal, anicteric sclerae ENMT: external ear and nose normal, oropharynx normal Respiratory: normal respiratory effort, lungs clear to auscultation Cardiovascular: Rate/Rhythm: regular rate and regular rhythm Vessels: normal peripheral pulses Extremities: no edema Gastrointestinal (Abdomen): normal bowel sounds, soft, nontender, no hepatosplenomegaly Musculoskeletal: Patient grabbing at right hip during exam, hip exam limited due to pain, patient is lifting the right leg off of the bed without difficulty Skin: no rashes, warm and dry Neurologic: PERRL, EOMI, accommodation nl, no face palsy, no dysarthria Psychiatric: A+Ox3, euthymic affect Results & Data Results & Data ([facility]) Vital Signs (Past 12 Hours) Vital Signs Temp Pulse Pulse Resp BP BP Pulse Ox 07/26/22 10:48 75 18 144/71 H 98 07/26/22 10:07 98 07/26/22 09:39 36.8 C 78 20 168/83 H 95 O2 Del Method 07/26/22 10:48 Room Air 07/26/22 10:07 Room Air 07/26/22 09:39 Room Air Laboratory Results Short CBC 07/26/22 Range/Units 10:10 WBC 11.01 H (4.8-10.8) K/ul Hgb 14.2 (14.0-18.0) g/dl Hct 42.3 (42.0-52.0) % Plt Count 186 (130-400) K/uL BMP 07/26/22 10:11 Sodium 133 L Potassium 4.2 Chloride 98 Carbon Dioxide 28 BUN 37 H Creatinine 1.42 H Glucose 325 H* Calcium 9.1 Liver Function 07/26/22 Range/Units 10:11 Total Bilirubin 1.1 H (0.2-1.0) mg/dl AST 45 H (13-39) U/L ALT 12 (7-52) U/L Alkaline Phosphatase 166 H (34-104) U/L Albumin 3.8 (3.4-5.0) gm/dl Diagnostic Findings Hip/Pelvis X-Ray 07/26/22 09:50 XR hip RT 2V w pelvis CLINICAL HISTORY: pain TECHNIQUE: 2 views of the right hip and single frontal view of the pelvis were obtained. Comparison: None available at the time of this dictation. FINDINGS: There is no evidence of an acute fracture. Prostate therapy beads are seen. Ther e is a left total hip arthroplasty. Degenerative changes are seen in the hip joint. No soft tissue abnormality is seen. IMPRESSION: Degenerative changes without evidence of acute abnormality. ACT 112: Negative or not required by law. Electronically signed by: Fritz Weber M.D. 07/26/2022 11:12 AM Chest X-Ray 07/26/22 09:52 XR chest 1V portable CLINICAL HISTORY: rib mass TECHNIQUE: Single frontal radiograph of the chest was obtained. Comparison: Comparison is made to chest radiograph 07/12/[address] chest 06/24/2022 FINDINGS: No lines and tubes are seen. Cardiomegaly is noted. The aortic arch is calcified. Lungs are underinflated but clear. No evidence of pleural effusion or pneumothorax. Large left lower chest wall mass is again seen bony destruction of the eighth rib is better seen in cross sectional imaging. IMPRESSION: Redemonstration of left rib mass. No acute cardiopulmonary abnormalities. ACT 112: Negative or not required by law. Electronically signed by: Fritz Weber M.D. 07/26/2022 11:16 AM Code Status & VTE Plan Code Status Patient is a DNR as per my discussion with him. VTE Prophylaxis Plan VTE Prophylaxis will be ordered: Yes Supervising Physician Co-Signing Physician Notes Patient was seen and examined independently. Chart reviewed. Case discussed with IRVING. Agree with assessment and plan as above
[2022-07-26] MEDS: LIDOCAINE 5% 1 PATCH TD SCH (15:23)
--- NOTE | 2022-07-26 15:33 | CT Scan Report ---
CT hip RT wo con HISTORY: 82 years-old Male right hip pain, hx metastatic disease acute right hip pain without report ed trauma. History of osteolytic bony metastasis. COMPARISON: CT lumbar spine of same day, CT abdomen and pelvis 06/03/2022 TECHNIQUE: Multiple axial CT images of the right hip were obtained without the use of IV contrast. A dose lowering technique was used consistent with the principals of ALARA. FINDINGS: Distended urinary bladder. Brachytherapy seeds within the enlarged prostate redemonstrated. Mild subc utaneous edema lateral to the right hip. No fluid collection or large joint effusion. Demineralized appearance of the bones. Degeneration with partial bony fusion of the right SI joint. M oderate osteoarthritis of the right hip. No acute fracture, dislocation, avascular necrosis or destru ctive bone lesions identified. IMPRESSION: 1. No acute fracture, dislocation or destructive bone lesion identified. 2. Urinary bladder distention. ACT 112: Negative or not required by law. The above report was generated using voice recognition software. It may contain grammatical, syntax o r spelling errors. Electronically signed by: Brandon Aguilar M.D. 07/26/2022 3:30 PM
--- NOTE | 2022-07-26 15:44 | CT Scan Report ---
CT SCAN OF THE LUMBAR SPINE WITHOUT IV CONTRAST CLINICAL HISTORY: Low back pain. Right hip pain. Reported history of metastatic disease. COMPARISON STUDY: Abdominal CT dated 06/03/2022. TECHNIQUE: CT scan of the lumbar spine is performed from the lower thoracic spine to the sacrum. Imag es are reviewed in the axial, sagittal, and coronal planes. IV contrast was not administered for this examination. A dose lowering technique was utilized adhering to the principles of ALARA. FINDINGS: The skeletal structures are heterogeneously osteopenic. There is no evidence of acute fract ure or malalignment involving the lumbar spine. A mild chronic superior endplate compression deformit y of L5 is unchanged. Vertebral body height is otherwise maintained throughout the lumbar spine. Alig nment is preserved. Large anterior and lateral marginal osteophytes are seen throughout. The transver se and spinous processes are intact. There is no spondylolysis. No definite lytic or blastic lesion i s seen involving the lumbar spine. There is mild multilevel degenerative disc space narrowing. 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 There is no CT evidence of high-grade ce ntral canal stenosis. There are right lateral disc bulges at L2-L3, L3-L4, and L4-L5. Bilateral disc bulge is noted at L5-S1. There is multilevel facet arthropathy, greatest in the lower lumbar region. The visualized sacrum and bony pelvis appear intact. Degenerative change is seen in the sacroiliac chu ints. There is fatty atrophy of the paraspinous musculature. There is advanced atherosclerotic calcif ication of the abdominal aorta which is normal in caliber. No retroperitoneal lymphadenopathy is seen . IMPRESSION: 1. No acute bony abnormality is seen involving the lumbar spine. 2. There is a chronic compression deformity of L5. 3. No lytic or blastic lesion is clearly seen involving the lumbar spine. 4. Degenerative disc disease and spondylosis as above. ACT 112: Negative or not required by law. Electronically signed by: Miguel Bloom M.D. 07/26/2022 3:43 PM
[2022-07-26] MEDS ORDERED: ACETAMINOPHEN 325 MG TAB PO PRN (17:01)
[2022-07-26] MEDS ORDERED: DEXTROSE 50% 50 ML SYRINGE IV PRN (17:01)
[2022-07-26] MEDS ORDERED: GLUCOSE 40% GEL 15 GM TUBE PO PRN (17:01)
[2022-07-26] MEDS ORDERED: ONDANSETRON INJ 2 MG/ML 2 ML VIAL IV PRN (17:01)
[2022-07-26] MEDS ORDERED: PHARMACY GLYCEMIC MGMT CONSULT PRN (17:01)
[2022-07-26] MEDS ORDERED: CARBOHYDRATES FOR HYPOGLYCEMIA PO PRN (17:01)
[2022-07-26] MEDS ORDERED: DOCUSATE SODIUM 100 MG CAP PO PRN (17:01)
[2022-07-26] MEDS ORDERED: GLUCAGON FOR INJ 1 MG VIAL SQ PRN (17:01)
[2022-07-26] MEDS ORDERED: GLUCOSE 10 TAB/TUBE PO PRN (17:01)
[2022-07-26] MEDS: INSULIN ASPART PER UNIT SC SCH ×2 (18:20→20:35)
[2022-07-26] MEDS: HEPARIN SOD 5,000 UNIT/0.5 ML VIAL SQ SCH ×2 (18:21→20:51)
[2022-07-26] MEDS: TAMSULOSIN HCL 0.4 MG CAP PO SCH (18:22)
[2022-07-26] MEDS: ACETAMINOPHEN 500 MG TAB PO SCH (18:22)
[2022-07-26] MEDS: PRAVASTATIN SOD 20 MG TAB PO SCH (20:49)
[2022-07-26] MEDS: GABAPENTIN 300 MG CAP PO SCH (20:49)
[2022-07-26] MEDS: FAMOTIDINE 20 MG TAB PO SCH (20:49)
[2022-07-26] MEDS: CARBIDOPA/LEVODOPA 25/100MG TAB PO SCH (20:50)
[2022-07-26] MEDS ORDERED: LANTUS PER UNIT CHARGE SQ SCH (21:00)
[2022-07-26] MEDS ORDERED: METHADONE HCL 5 MG TAB PO SCH (21:00)
[2022-07-26] MEDS ORDERED: NON-FORMULARY MEDICATION (Insulin Glargine [Lantus Solostar U-100 Insulin] 100 unit/mL (3 SQ SCH (21:00)
[2022-07-27] MEDS: ACETAMINOPHEN 500 MG TAB PO SCH ×3 (01:07→17:57)
[2022-07-27 04:16] LABS: Appearance Urine Cloudy (Clear); Bacteria Urine Automated 1+ (Negative); Bilirubin Urine Negative (Negative); Blood Urine 3+ (Negative); Color Urine Yellow; Epithelial Cell Urine Auto 20-30 /lpf (0-5); Glucose Urine UA 3+ (Negative); Ketones Urine Negative (Negative); Leukocyte Esterase Urine 2+ (Negative); Nitrite Urine Negative (Negative); Protein Urine Negative (Negative); Urobilinogen Urine Negative (Negative); WBC Urine Automated >30 /hpf (0-5)
[2022-07-27] MEDS: HEPARIN SOD 5,000 UNIT/0.5 ML VIAL SQ SCH (05:27)
--- NOTE | 2022-07-27 05:42 | Electrocardiogram Report ---
Test Reason : Blood Pressure : / mmHG Vent. Rate : 070 BPM Atrial Rate : 070 BPM P-R Int : 172 ms QRS Dur : 082 ms QT Int : 394 ms P-R-T Axes : -26 026 070 degrees QTc Int : 425 ms Sinus rhythm with frequent Premature ventricular complexes and AIVR Abnormal ECG When compared with ECG of 03-JUN-2022 11:36, Premature ventricular complexes are now Present Confirmed by Terry Lyons ([id number]) on 07/27/2022 5:42:08 AM Referred By: REFERRED SELF Confirmed By:Terry Lyons
[2022-07-27 06:17] LABS: Hematocrit (blood only) 38.6 % (42.0-52.0); Hemoglobin 13.2 g/dl (14.0-18.0); Mean Corpuscular Hemoglobin 31.1 pg (25.0-34.0); Mean Corpuscular Hgb Conc 34.2 g/dL (32.0-36.0); Mean Corpuscular Volume 90.8 fL (80.0-100.0); Platelet Count 172 K/uL (130-400); RDW Coefficient of Variation 13.6 % (11.5-14.5); RDW Standard Deviation 45.5 fL (36.4-46.3); Red Blood Count 4.25 M/uL (4.70-6.10); White Blood Count 8.46 K/ul (4.8-10.8)
[2022-07-27 06:38] LABS: BUN Creatinine Ratio 23.4 (10-20); Calcium 9.1 mg/dl (8.5-10.1); Creatinine Clr Calc Pharmacy 44.6 ml/min; Est GFR (African American) 45.9 ml/min; Est GFR (Non-African American) 39.6 ml/min; Potassium 4.4 mmol/L (3.5-5.1)
[2022-07-27] MEDS: oxyCODONE HCL IR 5 MG TAB (IMMEDIATE RELEASE) PO PRN ×4 (08:18→20:50)
[2022-07-27] MEDS: CARBIDOPA/LEVODOPA 25/100MG TAB PO SCH ×3 (08:19→20:12)
[2022-07-27] MEDS: CITALOPRAM 20 MG TAB PO SCH (08:19)
[2022-07-27] MEDS: ASPIRIN 81 MG ECTAB PO SCH (08:20)
[2022-07-27] MEDS: PANTOprazole 40 MG TAB PO SCH (08:20)
[2022-07-27] MEDS: allopurinoL 300 MG TAB PO SCH (08:20)
[2022-07-27] MEDS: GABAPENTIN 100 MG CAP PO SCH (08:20)
[2022-07-27] MEDS: POTASSIUM CHLORIDE 10 MEQ TABCR PO SCH (08:21)
[2022-07-27] MEDS: TORSEMIDE 20 MG TAB PO SCH (08:21)
[2022-07-27] MEDS: LIDOCAINE 5% 1 PATCH TD SCH (08:21)
[2022-07-27] MEDS: SPIRONOLACTONE 12.5 MG TAB PO SCH (08:21)
[2022-07-27] MEDS: INSULIN ASPART PER UNIT SC SCH ×4 (08:56→20:38)
--- NOTE | 2022-07-27 09:39 | Palliative Care Progress Note ---
Date of Service July 27, 2022 Assessment & Plan (1) Neuropathic pain: Plan: Gabapentin increased Low dose methadone added Lidocaine patch added CT negative for L spine lytic lesions/metastases Monitor with medication changes Continue prn oxycodone (2) Palliative care encounter: Plan: Molecular testing results pending from biopsy of rib lesion. Dr. Jackson will meet with him to discuss results and options for treatment. He tells me that he knows that he is dying. He and his daughter, Suzette, are agreeable to hospice depending on treatment options. He is adamant that he does not want chemot herapy. Case management involved to assist with home support, either home nursing or hospice. Will follow. Admission and Anticipated Discharge Date Admission Date: July 26, 2022 Subjective Had good night last night. Slept well and did not need prn pain medication. Had severe right leg pain while out of bed to bathroom this morning. Review of Systems Review of Systems: ESAS Pain 3/3 Dyspnea 0/3 Nausea 0/3 Drowsiness 0/3 Physical Exam Constitutional: no acute distress Respiratory: normal respiratory effort; no labored breathing Gastrointestinal (Abdomen): abdomen obese Skin: warm and dry Neurologic: Speech / Cognition: normal cognition Results & Data ([facility]) Vital Signs (Past 12 Hours) Vital Signs Temp Pulse Resp BP Pulse Ox O2 Del Method 07/27/22 07:36 98.1 F 55 L 16 116/64 95 Room Air PG Care Time/CCT Total # of Minutes Spent Total Time Spent: 38 Total Time Spent with Patient: Total time spent is greater than 50% in coordination of care (as documented) at patient's floor/unit and/or counseling patient:[id number] Symptom management, goals of care, patient education and support Coding Level of Care Code 01145 SUB INP/OBS CARE 2/35MIN Diagnoses Neuropathic pain M79.2 Palliative care encounter Z51.5
[2022-07-27] MEDS: cefTRIAXone SODIUM 2,000 MG in DEXTROSE 5% 50 ML IV SCH (11:20)
--- NOTE | 2022-07-27 13:54 | Hospitalist Progress Note ---
Date of Service July 27, 2022 Assessment & Plan (1) Neoplasm related pain (acute) (chronic): (2) Neoplasm of rib: Plan: Admit to [facility] Patient presenting from home with reports of right hip pain radiating into the right leg. Recently admitted to [facility] 06/03 through 06/08 for left rib pain and patient was found to have a left eighth rib mass. 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 Specimen was sent for molecular testing however this is pending. Patient completed radiation therapy to left eighth rib lesion. This had improved from pain standpoint CT hip and lumbar spine reviewed revealing no acute fracture, dislocation or destructive bone lesion identified Recommending MRI on the patient severely claustrophobic and currently wishes against Palliative care Dr. Islas on board, will await final results of molecular testing to determine if patient is eligible for immunotherapy. Consideration for additional palliative radiation however may be difficult for patient to travel to hospital daily for treatments. Patient did state he does not want any chemotherapy. For pain control, gabapentin increased to 100 mg in the morning and 300 mg at bedtime, & methadone started 2.5 mg HS, Lidoderm patch, scheduled Tylenol, continue oxycodone 10 mg q4h PRN Oncology consult, Dr. Jackson (3) Diabetes mellitus, type II: Plan: Hgb A1c 9.8 on 05/2022 Hold oral agents, continue home dose Lantus. Novolog SS Glucose 127, no signs of DKA Pharmacy consult - appreciate their management (4) CKD (chronic kidney disease), stage III: Plan: Baseline creatinine low-mid 1s Creatinine 1.58 today continue to follow closely, if no improvement or worsening consider holding torsemide Monitor renal functions (5) (HFpEF) heart failure with preserved ejection fraction: Plan: Appears euvolemic Continue home dose torsemide and spironolactone DVT PROPHYLAXIS SQ heparin A total of 35 minutes was spent with greater than 50% of that time personally viewing all current laboratory work and diagnostic imaging studies obtained in the ED. Additionally, I was able to view the patients past medication reconciliation and history with direct visualization in the patients chart. Included in the time above, a portion of that time was spent assessing the patient while discussing and collaborating with specialists, if necessary, and making medical decision making on treatment plan. All of the above was collaborated with Dr. Cates. Please see addendum for further details. Admission and Anticipated Discharge Date Admission Date: July 26, 2022 Supervising Physician Co-Signing Physician Notes Patient was seen and examined independently. CT Lumbar spine and CT pelvis negative for lytic lesions or fractures. He is unable to lay still to have MRI study. Would recommend PET scan if concern about metastatic spread of his adenocarcinoma (outpatient). Pending further studies to see if he is a candidate for immunotherapy. Appreciate Palliative care input regarding pain control. Patient with uncontrolled pain currently. Subjective Pt seen and examined in room 350-2. Follow up R hip pain. C/o 8/10 hip pain with movement. Does not feel he could tolerate MRI due to claustrophobia. Denies f/c/s chest pain, sob, n/v/d. Appetite okay. Review of Systems Review of Systems: All systems reviewed & are unremarkable except as noted in Subjective Physical Exam Physical Exam: Gen: elderly, M, sitting up in bed, +distress with pain, A&O x3 HEENT: Normocephalic, atraumatic, conjunctivae moist, sclerae anicteric, mucous membranes moist. Lung: Clear to Auscultation bilaterally, no wheezes/rales/rhonchi Heart: Regular rate, regular rhythm, no murmurs, rubs, or gallops Abdomen: Soft, NT, ND +BS x 4 Extremities: No edema, Pt lifting R leg but difficult to examine due to pain, he is also abducting at hip joint Skin: Warm, no rash, negative turgor. Results & Data Results & Data ([facility]) Vital Signs (Past 12 Hours) Vital Signs Temp Pulse Resp BP Pulse Ox O2 Del Method 07/27/22 07:36 36.7 C 55 L 16 116/64 95 Room Air Laboratory Results Short CBC 07/27/22 Range/Units 05:56 WBC 8.46 (4.8-10.8) K/ul Hgb 13.2 L (14.0-18.0) g/dl Hct 38.6 L (42.0-52.0) % Plt Count 172 (130-400) K/uL BMP 07/27/22 05:56 Sodium 136 Potassium 4.4 Chloride 103 Carbon Dioxide 29 BUN 37 H Creatinine 1.58 H Glucose 110 H Calcium 9.1 Urine 07/27/22 Range/Units 04:02 Urine Color Yellow Urine Appearance Cloudy A (Clear) Urine pH 5.0 (4.5-7.5) Ur Specific [place] 1.020 (1.000-1.030) Urine Protein Negative (Negative) Urine Glucose (UA) 3+ H (Negative) Medications Administered Current Inpatient Medications Acetaminophen (Acetaminophen 325 Mg Tab) 650 mg PO Q4H PRN PRN Reason: pain/fever Stop: 08/25/22 17:00 Acetaminophen (Acetaminophen 500 Mg Tab) 1,000 mg PO Q8H [facility] Stop: 08/25/22 17:00 Last Admin: 07/27/22 08:22 Dose: 1,000 mg Allopurinol (Allopurinol 300 Mg Tab) 300 mg PO QAM [facility]AL[facility] Stop: 08/26/22 08:59 Last Admin: 07/27/22 08:20 Dose: 300 mg Aspirin (Aspirin 81 Mg Ectab) 81 mg PO DAILY [facility]ALI Stop: 08/26/22 08:59 Last Admin: 07/27/22 08:20 Dose: 81 mg Carbidopa/Levodopa (Carbidopa/Levodopa 25/100mg Tab) 1 tab PO TID [facility]ALI Stop: 08/25/22 20:59 Last Admin: 07/27/22 08:19 Dose: 1 tab Citalopram Hydrobromide (Citalopram 20 Mg Tab) 20 mg PO DAILY [facility]ALI Stop: 08/26/22 08:59 Last Admin: 07/27/22 08:19 Dose: 20 mg Dextrose (Dextrose 50% 50 Ml Syringe) 25 - 50 ml IV UD PRN; Protocol PRN Reason: Hypoglycemia Protocol Stop: 08/25/22 17:00 Docusate Sodium (Docusate Sodium 100 Mg Cap) 100 mg PO BID PRN PRN Reason: constipation Stop: 08/25/22 17:00 Enoxaparin Sodium (Enoxaparin Inj 30 Mg/0.3 Ml Syr) 30 mg SQ HS VAISHALI Stop: 08/26/22 20:59 Famotidine (Famotidine 20 Mg Tab) 20 mg PO HS [facility]ALI Stop: 08/25/22 20:59 Last Admin: 07/26/22 20:49 Dose: 20 mg Gabapentin (Gabapentin 100 Mg Cap) 100 mg PO QAM [facility] Stop: 08/26/22 08:59 Last Admin: 07/27/22 08:20 Dose: 100 mg Gabapentin (Gabapentin 300 Mg Cap) 300 mg PO HS [facility]ALI Stop: 08/25/22 20:59 Last Admin: 07/26/22 20:49 Dose: 300 mg Glucagon (Glucagon For Inj 1 Mg Vial) 1 mg SQ UD PRN; Protocol PRN Reason: Hypoglycemia Protocol Stop: 08/25/22 17:00 Glucose (Glucose 10 Tab/Tube) 4 - 8 tab PO UD PRN; Protocol PRN Reason: Hypoglycemia Treatment Stop: 08/25/22 17:00 Glucose (Glucose 40% Gel 15 Gm Tube) 15 - 30 gm PO UD PRN; Protocol PRN Reason: Hypoglycemia Protocol Stop: 08/25/22 17:00 Ceftriaxone Sodium 2,000 mg/ (Dextrose) 70 mls @ 100 mls/hr IV Q24H VAISHALI; Protocol Stop: 08/01/22 09:59 Last Infusion: 07/27/22 12:02 Dose: Infused Insulin Aspart (Insulin Aspart Per Unit) 0 units SC ACHS [facility] Stop: 08/25/22 17:00 Last Admin: 07/27/22 12:56 Dose: 7 units Lidocaine (Lidocaine 5% 1 Patch) 1 patch TD QAM [facility] Stop: 08/25/22 14:44 Last Admin: 07/27/22 08:21 Dose: 1 patch Methadone HCl (Methadone Hcl 5 Mg Tab) 2.5 mg PO [facility] Stop: 08/09/22 20:59 Last Admin: 07/26/22 20:49 Dose: 2.5 mg Miscellaneous (Remove Lidoderm Patch) 1 each N/A DAILY@2100 [facility] Stop: 08/25/22 20:59 Last Admin: 07/26/22 20:51 Dose: 1 each Miscellaneous (Carbohydrates For Hypoglycemia ) 15 - 30 gm PO UD PRN PRN Reason: Hypoglycemia Protocol Stop: 08/25/22 17:00 Miscellaneous Information (Pharmacy Glycemic Mgmt Consult) 1 each N/A UD PRN PRN Reason: Consult Stop: 08/25/22 17:00 Ondansetron HCl (Ondansetron Inj 2 Mg/Ml 2 Ml Vial) 4 mg IV Q6H PRN PRN Reason: Nausea Stop: 08/25/22 17:00 Oxycodone HCl (Oxycodone Hcl Ir 5 Mg Tab (Immediate Release)) 10 mg PO Q4H PRN PRN Reason: Pain Stop: 08/09/22 17:00 Last Admin: 07/27/22 12:02 Dose: 10 mg Pantoprazole Sodium (Pantoprazole 40 Mg Tab) 40 mg PO DAILY [facility] Stop: 08/26/22 08:59 Last Admin: 07/27/22 08:20 Dose: 40 mg Potassium Chloride (Potassium Chloride 10 Meq Tabcr) 10 meq PO DAILY [facility] Stop: 08/26/22 08:59 Last Admin: 07/27/22 08:21 Dose: 10 meq Pravastatin Sodium (Pravastatin Sod 20 Mg Tab) 20 mg PO HS [facility] Stop: 08/25/22 20:59 Last Admin: 07/26/22 20:49 Dose: 20 mg Spironolactone (Spironolactone 12.5 Mg Tab) 12.5 mg PO DAILY [facility] Stop: 08/26/22 08:59 Last Admin: 07/27/22 08:21 Dose: 12.5 mg Tamsulosin HCl (Tamsulosin Hcl 0.4 Mg Cap) 0.4 mg PO DAILY@1800 [facility] Stop: 08/25/22 17:59 Last Admin: 07/26/22 18:22 Dose: 0.4 mg Torsemide (Torsemide 20 Mg Tab) 20 mg PO DAILY [facility] Stop: 08/26/22 08:59 Last Admin: 07/27/22 08:21 Dose: 20 mg
--- NOTE | 2022-07-27 14:18 | Pharmacy Report ---
Pharmacy Glycemic Short Note 2 - Date of Service July 27, 2022 - Glycemic Short BSG Results (Last 24 hours): 07/26/22 07/26/22 07/27/22 17:01 20:24 05:56 Glucose 110 H POC Glucose 119 H 111 H 07/27/22 07/27/22 07:57 11:52 Glucose POC Glucose 113 H 127 H OUTPATIENT ANTIDIABETIC REGIMEN: * Lantus 30 units SQ BID * Trulicity 4.5mg SQ weekly * Metformin 850mg PO BID * Jardiance 10mg PO qAM * HbA1c: 9.3% (06/14/22) ASSESSMENT: * Mr Merritt is an 82yo diabetic male admitted with pain related to neoplasm of rib. * Palliative care has been consulted and patient is considering hospice at dis charge. * Do not expect that pt requires aggressive or tight glycemic control during admission. * Will aim to keep BSGs less than 180mg/dL as much as possible, while prioritizing limiting the risk of hypoglycemia. * Will continue to follow and adjust regimen as indicated. PLAN FOR INPATIENT GLYCEMIC CONTROL: * Hold outpatient oral diabetes medications * Basal insulin * Lantus 15 units SQ qPM * Bolus insulin * NovoLog per scale ACHS or Q6hrs while NPO * Goal Range: Low 120 mg/dL - High 150 mg/dL * Correction Factor: 20 mg/dL/unit * Nutritional / Prandial insulin per carb ratio of 1 unit per 7 grams CHO consumed
--- NOTE | 2022-07-27 16:48 | Oncology Consultation ---
Date of Consultation July 27, 2022 Assessment & Plan (1) Adenocarcinoma of unknown primary: (2) Neoplasm related pain (acute) (chronic): Plan 82-year-old gentleman recently diagnosed with adenocarcinoma of unknown primary. He is s/p palliative radiation treatments to eighth lateral rib lesion. Presented with right lower extremity pain of unclear etiology. Regarding his adenocarcinoma of unknown primary, molecular/PD-L1 studies have been ordered and are still pending. He is yet to have outpatient PET/CT as he has missed several appointments due to intractable pain. I had an extensive discussion with patient today regarding potential treatment options including systemic IV chemotherapy, targeted pill treatments or immunotherapy. Explained to him that usually targetable/treatments are usually overall better tolerated than IV chemotherapy. If he is not found to have t argetable mutations or PD-L1 expression is 0, he would require IV chemotherapy. Patient however indicated that he would not want any form of active treatment even if he is found to have an actionable mutation or high PD-L1 expression which would make him a candidate for pill/immunotherapy treatment. He indicated that he would prefer pain control/supportive care with goal of transitioning to home hospice. With patient's permission, I also had a discussion with patient's daughter over the phone regarding his wishes. Will communicate with palliative care as well as primary team regarding above discussion. Thank you for this consult. Oncology will sign off at this time. Please feel free to call if you have any further questions History of Present Illness Reason for Consultation: Metastatic adenocarcinoma of unknown primary Attending Physician: Freddie Cates MD History of Present Illness Mr. Merritt is an 82-year-old gentleman who was recently diagnosed with metastatic adenocarcinoma of unknown primary. He is s/p palliative radiation treatment to it lateral rib lesion. He presented to [facility] with intractable right lower extremity pain. Imaging obtained since admission including CT lumbar spine and CT right hip have been unremarkable. MRI has not been performed due to claustrophobia. During my evaluation of patient today, he continues to complain of right lower extremity pain. He indicates that he does not want systemic therapy and would prefer supportive care/hospice Allergies Allergy/AdvReac Type Severity Reaction Status Date / Time No Known Allergies Verified 07/12/22 18:48 Home Medications Medication Instructions Recorded Confirmed Type aspirin 81 mg tablet,delayed 81 mg PO DAILY 07/31/18 07/26/22 History release omega 2-lcy-hdy-fish oil 1,000 mg 1 cap PO DAILY 07/31/18 07/26/22 History (120 mg-180 mg) capsule potassium chloride 10 mEq 10 meq PO DAILY 07/31/18 07/26/22 History tablet,extended release(part/cryst) spironolactone 25 mg tablet 12.5 mg PO DAILY 07/31/18 07/26/22 History tamsulosin 0.4 mg capsule 0.4 mg PO DAILY@1800 07/31/18 07/26/22 History allopurinol 300 mg tablet 300 mg PO QAM 10/26/21 07/26/22 History carbidopa 25 mg-levodopa 100 mg 1 tab PO TID 10/26/21 07/26/22 History tablet empagliflozin 10 mg tablet 10 mg PO DAILY 10/26/21 07/26/22 History (Jardiance) gabapentin 100 mg capsule 100 mg PO BID 10/26/21 07/26/22 History pantoprazole 40 mg tablet,delayed 40 mg PO DAILY 10/26/21 07/26/22 History release pravastatin 20 mg tablet 20 mg PO HS 10/26/21 07/26/22 History torsemide 20 mg tablet 20 mg PO DAILY 10/26/21 07/26/22 History citalopram 20 mg tablet 20 mg PO DAILY 11/07/21 07/26/22 History famotidine 20 mg tablet 20 mg PO HS 11/07/21 07/26/22 History dulaglutide 4.5 mg/0.5 mL 4.5 mg subcut WK 06/03/22 07/26/22 History subcutaneous pen injector (Trulicity) insulin glargine 100 unit/mL (3 30 unit subcut BID 06/03/22 07/26/22 History mL) subcutaneous pen (Lantus Solostar U-100 Insulin) docusate sodium 100 mg capsule 100 mg PO BID PRN constipation #30 06/08/22 07/26/22 Rx caps nystatin 100,000 unit/gram topical 1 applic EXT BID PRN Skin 07/12/22 07/26/22 History cream Irritation oxycodone 10 mg tablet 10 mg PO Q4H PRN Pain 07/19/22 07/26/22 History metformin 850 mg tablet 850 mg PO BID 07/26/22 07/26/22 History Patient History Medical History (HFpEF) heart failure with preserved ejection fraction Chronic back pain CKD (chronic kidney disease), stage III COVID-19 Depression Diabetes mellitus, type II Diaphragmatic hernia Diverticulitis Encephalopathy GERD (gastroesophageal reflux disease) History of prostate cancer Hyperlipidemia Hypertension Monoarticular arthritis Narcotic dependence Parkinsons Prostate cancer "Prostate, adenocarcinoma, cristina 3 + 3, 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, cT1c, group I TREATMENT: Prostate seed implant - Cesium 131 - 06/30/2011 - monotherapy alone, Lupron for 6 months prior to implantation." Right knee pain Type 2 diabetes mellitus Venous insufficiency Weakness generalized Surgical History History of elbow surgery ORIF of left elbow fracture in 1995 History of hip replacement History of knee replacement History of transurethral resection of prostate 2004 Status post hernia repair Family History Mother Stroke Social History Smoking Status: Former smoker Tobacco Type: Smokeless Tobacco (Dip or Chew) Second Hand Exposure: No; Do You Dip or Chew Tobacco: No; Tobacco Cessation Education Requested by Patient: No Hx Alcohol Use: No Hx Substance Use: No Preferred Language: Japanese Communication Ability: Effective Cut In Worker Required: No Beliefs That Will Affect Care: None marital status: / Current Living Situation: Family Current Living Situation Comment: with friends current occupational status: retired How many Children do You have: 3 Other Information That Helps Us Care for You: No Feels Safe at Home: Yes Safety Concerns: Feels Safe At This Time Assistive Devices: Walker Results & Data ([facility]) Vital Signs (Past 12 Hours) Vital Signs Temp Pulse Resp BP Pulse Ox O2 Del Method 07/27/22 07:36 36.7 C 55 L 16 116/64 95 Room Air
[2022-07-27] MEDS: TAMSULOSIN HCL 0.4 MG CAP PO SCH (17:57)
[2022-07-27] MEDS: METHADONE HCL 5 MG TAB PO SCH (20:09)
[2022-07-27] MEDS: FAMOTIDINE 20 MG TAB PO SCH (20:11)
[2022-07-27] MEDS: PRAVASTATIN SOD 20 MG TAB PO SCH (20:11)
[2022-07-27] MEDS: GABAPENTIN 300 MG CAP PO SCH (20:12)
[2022-07-27] MEDS: ENOXAPARIN INJ 30 MG/0.3 ML SYR SQ SCH (20:13)
[2022-07-27] MEDS: DOCUSATE SODIUM 100 MG CAP PO SCH (20:38)
[2022-07-27] MEDS ORDERED: LANTUS PER UNIT CHARGE SQ SCH (21:00)
[2022-07-27] MEDS ORDERED: HYDROmorphone INJ 0.5 MG/0.5 ML SYR IV STA (23:47)
[2022-07-28] MEDS: ACETAMINOPHEN 500 MG TAB PO SCH ×3 (00:15→18:04)
[2022-07-28] MEDS: oxyCODONE HCL IR 5 MG TAB (IMMEDIATE RELEASE) PO PRN ×3 (01:28→20:13)
[2022-07-28] MEDS: CITALOPRAM 20 MG TAB PO SCH (08:52)
[2022-07-28] MEDS: DOCUSATE SODIUM 100 MG CAP PO SCH ×2 (08:52→20:05)
[2022-07-28] MEDS: ASPIRIN 81 MG ECTAB PO SCH (08:53)
[2022-07-28] MEDS: SPIRONOLACTONE 12.5 MG TAB PO SCH (08:53)
[2022-07-28] MEDS: PANTOprazole 40 MG TAB PO SCH (08:53)
[2022-07-28] MEDS: POTASSIUM CHLORIDE 10 MEQ TABCR PO SCH (08:54)
[2022-07-28] MEDS: CARBIDOPA/LEVODOPA 25/100MG TAB PO SCH ×3 (08:54→20:06)
[2022-07-28] MEDS: allopurinoL 300 MG TAB PO SCH (08:54)
[2022-07-28] MEDS: TORSEMIDE 20 MG TAB PO SCH (08:55)
[2022-07-28] MEDS: LIDOCAINE 5% 1 PATCH TD SCH (08:55)
[2022-07-28] MEDS: GABAPENTIN 100 MG CAP PO SCH (08:56)
[2022-07-28] MEDS: INSULIN ASPART PER UNIT SC SCH ×4 (09:17→21:04)
[2022-07-28 09:54] LABS: Basophils # (auto) 0.04 K/uL (0-0.2); Basophils % (auto) 0.4 %; Eosinophils # (auto) 0.16 K/uL (0-0.50); Eosinophils % (auto) 1.5 %; Hematocrit (blood only) 39.4 % (42.0-52.0); Hemoglobin 13.2 g/dl (14.0-18.0); Immature Granulocytes # (auto) 0.12 K/uL (0.01-0.20); Immature Granulocytes % (auto) 1.1 %; Lymphocytes # (auto) 1.18 K/uL (1.2-3.4); Lymphocytes % (auto) 11.2 %; Mean Corpuscular Hemoglobin 31.2 pg (25.0-34.0); Mean Corpuscular Hgb Conc 33.5 g/dL (32.0-36.0); Mean Corpuscular Volume 93.1 fL (80.0-100.0); Mean Platelet Volume 10.7 fL (9.4-12.4); Monocytes % (auto) 9.5 %; Neutrophils # (auto) 8.08 K/uL (1.40-6.50); Neutrophils % (auto) 76.3 %; Platelet Count 174 K/uL (130-400); RDW Coefficient of Variation 13.7 % (11.5-14.5); RDW Standard Deviation 46.5 fL (36.4-46.3); Red Blood Count 4.23 M/uL (4.70-6.10); White Blood Count 10.58 K/ul (4.8-10.8)
[2022-07-28] MEDS: METHADONE HCL 5 MG TAB PO SCH ×2 (10:00→10:15)
[2022-07-28 10:11] LABS: BUN Creatinine Ratio 23.4 (10-20); Calcium 9.3 mg/dl (8.5-10.1); Creatinine Clr Calc Pharmacy 41.2 ml/min; Est GFR (African American) 41.7 ml/min; Potassium 4.7 mmol/L (3.5-5.1)
[2022-07-28] MEDS: cefTRIAXone SODIUM 2,000 MG in DEXTROSE 5% 50 ML IV SCH (10:36)
--- NOTE | 2022-07-28 14:00 | Hospitalist Progress Note ---
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 Recently admitted to [facility] 06/03 through 06/08 for left rib pain and patient was found to have a left eighth rib mass. 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 Specimen was sent for molecular testing however this is pending. Patient completed radiation therapy to left eighth rib lesion. CT hip and lumbar spine reviewed revealing no acute fracture, dislocation or destructive bone lesion identified Discussed with Dr. Islas with palliative medicine, will await final results of molecular testing to determine if patient is eligible for immunotherapy. Consideration for additional palliative radiation however may be difficult for patient to travel to hospital daily for treatments. Patient did state he does not want any chemotherapy. Pt saw Dr. Jackson on 07/27 and wishes to not pursue and further treatment including immunotherapy and wishes to transition to home hospice For pain control, gabapentin increased to 100 mg in the morning and 300 mg at bedtime, started on methadone 2.5 mg HS on 07/26 and this was increased to BID on 07/27, Lidoderm patch, scheduled Tylenol, continue oxycodone 10 mg q4h PRN Pt more lethargic this a.m. Received IV dilaudid overnight, a.m. methadone held Possibly in setting of IV dilaudid along with frequent administration of oxy IR q4. Will reduce freq of oxy to q8h. Discussed with palliative who also felt pt was more delirious this afternoon, will hold evening dose of methadone reassess mental status and alertness in a.m. to determine if able to resume methadone plan to transition to hospice - will await palliative further recs (3) Diabetes mellitus, type II: Plan: Hgb A1c 9.8 on 05/2022 Hold oral agents, continue home dose Lantus. Add NovoLog sliding scale Glucose 325, no signs of DKA Pharmacy consult bsg controlled, 150 (4) CKD (chronic kidney disease), stage III: Plan: Baseline creatinine low-mid 1s Creatinine increased to 1.7 today he has been tolerating PO intake well, no significant edema will hold oral torsemide for now, monitor daily bmp Monitor renal functions (5) (HFpEF) heart failure with preserved ejection fraction: Plan: Appears euvolemic hold torsemide, continue aldactone DVT PROPHYLAXIS SQ heparin A total of 45 minutes was spent with greater than 50% of that time personally viewing all current laboratory work and diagnostic imaging studies obtained in the ED. Additionally, I was able to view the patients past medication reconciliation and history with direct visualization in the patients chart. Included in the time above, a portion of that time was spent assessing the patient while discussing and collaborating with specialists, if necessary, and making medical decision making on treatment plan. All of the above was collaborated with Dr. Moses. Please see addendum for further details. Admission and Anticipated Discharge Date Admission Date: July 26, 2022 Subjective Pt seen and examined in room 350-2. Follow up R hip pain. Nursing at bedside states pt more lethargic today and not assisting in adls like he was yesterday. Also did not eat as well. AM dose of methadone was held. Nurse at bedside states he got dose of IV dilaudid over night as well as oxy IR yesterday due to significant pain. Review of Systems Review of Systems: All systems reviewed & are unremarkable except as noted in HPI & below Physical Exam Physical Exam: Gen: elderly, M, sitting up in bed, NAD, A&O x3 HEENT: Normocephalic, atraumatic, conjunctivae moist, sclerae anicteric, mucous membranes moist. Lung: Clear to Auscultation bilaterally, no wheezes/rales/rhonchi Heart: Regular rate, regular rhythm, no murmurs, rubs, or gallops Abdomen: Soft, NT, ND +BS x 4 Extremities: No edema, Skin: Warm, no rash, negative turgor. Results & Data Results & Data ([facility]) Vital Signs (Past 12 Hours) Vital Signs Temp Pulse Resp BP Pulse Ox O2 Del Method 07/28/22 08:34 36.6 C 58 L 18 113/67 97 Room Air Laboratory Results Short CBC 07/28/22 Range/Units 09:36 WBC 10.58 (4.8-10.8) K/ul Hgb 13.2 L (14.0-18.0) g/dl Hct 39.4 L (42.0-52.0) % Plt Count 174 (130-400) K/uL BMP 07/28/22 09:36 Sodium 135 L Potassium 4.7 Chloride 101 Carbon Dioxide 29 BUN 40 H Creatinine 1.71 H Glucose 183 H Calcium 9.3 Medications Administered Current Inpatient Medications Acetaminophen (Acetaminophen 325 Mg Tab) 650 mg PO Q4H PRN PRN Reason: pain/fever Stop: 08/25/22 17:00 Acetaminophen (Acetaminophen 500 Mg Tab) 1,000 mg PO Q8H VAISHALI Stop: 08/25/22 17:00 Last Admin: 07/28/22 08:57 Dose: 1,000 mg Allopurinol (Allopurinol 300 Mg Tab) 300 mg PO QAM VAISHALI Stop: 08/26/22 08:59 Last Admin: 07/28/22 08:54 Dose: 300 mg Aspirin (Aspirin 81 Mg Ectab) 81 mg PO DAILY VAISHALI Stop: 08/26/22 08:59 Last Admin: 07/28/22 08:53 Dose: 81 mg Carbidopa/Levodopa (Carbidopa/Levodopa 25/100mg Tab) 1 tab PO TID VAISHALI Stop: 08/25/22 20:59 Last Admin: 07/28/22 08:54 Dose: 1 tab Citalopram Hydrobromide (Citalopram 20 Mg Tab) 20 mg PO DAILY VAISHALI Stop: 08/26/22 08:59 Last Admin: 07/28/22 08:52 Dose: 20 mg Dextrose (Dextrose 50% 50 Ml Syringe) 25 - 50 ml IV UD PRN; Protocol PRN Reason: Hypoglycemia Protocol Stop: 08/25/22 17:00 Docusate Sodium (Docusate Sodium 100 Mg Cap) 100 mg PO BID VAISHALI Stop: 08/26/22 20:59 Last Admin: 07/28/22 08:52 Dose: 100 mg Enoxaparin Sodium (Enoxaparin Inj 30 Mg/0.3 Ml Syr) 30 mg SQ HS VAISHALI Stop: 08/26/22 20:59 Last Admin: 07/27/22 20:13 Dose: 30 mg Famotidine (Famotidine 20 Mg Tab) 20 mg PO HS VAISHALI Stop: 08/25/22 20:59 Last Admin: 07/27/22 20:11 Dose: 20 mg Gabapentin (Gabapentin 100 Mg Cap) 100 mg PO QAM VAISHALI Stop: 08/26/22 08:59 Last Admin: 07/28/22 08:56 Dose: 100 mg Gabapentin (Gabapentin 300 Mg Cap) 300 mg PO HS [facility] Stop: 08/25/22 20:59 Last Admin: 07/27/22 20:12 Dose: 300 mg Glucagon (Glucagon For Inj 1 Mg Vial) 1 mg SQ UD PRN; Protocol PRN Reason: Hypoglycemia Protocol Stop: 08/25/22 17:00 Glucose (Glucose 10 Tab/Tube) 4 - 8 tab PO UD PRN; Protocol PRN Reason: Hypoglycemia Treatment Stop: 08/25/22 17:00 Glucose (Glucose 40% Gel 15 Gm Tube) 15 - 30 gm PO UD PRN; Protocol PRN Reason: Hypoglycemia Protocol Stop: 08/25/22 17:00 Ceftriaxone Sodium 2,000 mg/ (Dextrose) 70 mls @ 100 mls/hr IV Q24H [facility]; Protocol Stop: 08/01/22 09:59 Last Infusion: 07/28/22 11:46 Dose: Infused Insulin Aspart (Insulin Aspart Per Unit) 0 units SC ACHS [facility] Stop: 08/25/22 17:00 Last Admin: 07/28/22 13:18 Dose: 5 units Lidocaine (Lidocaine 5% 1 Patch) 1 patch TD QAM [facility] Stop: 08/25/22 14:44 Last Admin: 07/28/22 08:55 Dose: 1 patch Methadone HCl (Methadone Hcl 5 Mg Tab) 2.5 mg PO BID [facility] Stop: 08/10/22 20:59 Last Admin: 07/28/22 10:15 Dose: Not Given Miscellaneous (Remove Lidoderm Patch) 1 each N/A DAILY@2100 [facility] Stop: 08/25/22 20:59 Last Admin: 07/27/22 20:51 Dose: 1 each Miscellaneous (Carbohydrates For Hypoglycemia ) 15 - 30 gm PO UD PRN PRN Reason: Hypoglycemia Protocol Stop: 08/25/22 17:00 Miscellaneous Information (Pharmacy Glycemic Mgmt Consult) 1 each N/A UD PRN PRN Reason: Consult Stop: 08/25/22 17:00 Ondansetron HCl (Ondansetron Inj 2 Mg/Ml 2 Ml Vial) 4 mg IV Q6H PRN PRN Reason: Nausea Stop: 08/25/22 17:00 Oxycodone HCl (Oxycodone Hcl Ir 5 Mg Tab (Immediate Release)) 10 mg PO Q8H PRN PRN Reason: Pain Stop: 08/09/22 17:00 Pantoprazole Sodium (Pantoprazole 40 Mg Tab) 40 mg PO DAILY [facility] Stop: 08/26/22 08:59 Last Admin: 07/28/22 08:53 Dose: 40 mg Potassium Chloride (Potassium Chloride 10 Meq Tabcr) 10 meq PO DAILY VAISHALI Stop: 08/26/22 08:59 Last Admin: 07/28/22 08:54 Dose: 10 meq Pravastatin Sodium (Pravastatin Sod 20 Mg Tab) 20 mg PO HS VAISHALI Stop: 08/25/22 20:59 Last Admin: 07/27/22 20:11 Dose: 20 mg Spironolactone (Spironolactone 12.5 Mg Tab) 12.5 mg PO DAILY VAISHALI Stop: 08/26/22 08:59 Last Admin: 07/28/22 08:53 Dose: 12.5 mg Tamsulosin HCl (Tamsulosin Hcl 0.4 Mg Cap) 0.4 mg PO DAILY@1800 [facility] Stop: 08/25/22 17:59 Last Admin: 07/27/22 17:57 Dose: 0.4 mg Torsemide (Torsemide 20 Mg Tab) 20 mg PO DAILY VAISHALI Stop: 08/26/22 08:59 Last Admin: 07/28/22 08:55 Dose: 20 mg
[2022-07-28] MEDS: TAMSULOSIN HCL 0.4 MG CAP PO SCH (18:06)
--- NOTE | 2022-07-28 18:08 | Palliative Care Progress Note ---
Date of Service July 28, 2022 Assessment & Plan (1) Neuropathic pain: Plan: Gabapentin: no change I will hold methadone tonight given acute AMS changes Continue Lidocaine patch added Continue to monitor with medication changes Reduced dose and frequency of prn oxycodone I have added Hold parameters of: hold for somnolence or resp rate below 14/min, document resp rate with med administration. (2) Palliative care encounter: Plan Med changes as above. Hold Methadone tonight Hold parameters added for opioids as noted above Wen Wolf DNP Clinical Director, Palliative Medicine Admission and Anticipated Discharge Date Admission Date: July 28, 2022 Subjective pt met with oncology and declined chemo. he advised wanting to go home with hospice/family in agreement. patient is a little more confused today, nursing states he did not participate in ADLs per his usual mentation seemed to clear a little but at time of my visit he was a little confused, telling me "your hospital music promoter were here, trying to push me into doing chemo. I don't want it." Then he asks me if I am a logistical engineer "are you another one of the music promoter, here to paddle that BS to me?" Review of Systems Review of Systems: Unobtainable due to cognitive status Physical Exam Physical Exam: Resting in bed, confused/delirium present no other acute distress abd softly distended, BS+ color pink,slightly diaphoretic able to follow simple commands Results & Data ([facility]) Vital Signs (Past 12 Hours) Vital Signs Temp Pulse Resp BP BP Pulse Ox O2 Del Method 07/28/22 14:34 37.1 C 81 18 113/70 91 Room Air 07/28/22 08:34 36.6 C 58 L 18 113/67 97 Room Air PG Care Time/CCT Total # of Minutes Spent Total Time Spent: 55 Total Time Spent with Patient: Total time spent is greater than 50% in coordination of care (as documented) at patient's floor/unit and/or counseling patient: [place] [address] SUB INP/OBS CARE 3/50MIN Patient Type Established History Detailed Exam Detailed Medical Decision Making High Complexity Diagnoses Neuropathic pain M79.2 Palliative care encounter Z51.5
[2022-07-28] MEDS: PRAVASTATIN SOD 20 MG TAB PO SCH (20:06)
[2022-07-28] MEDS: ENOXAPARIN INJ 30 MG/0.3 ML SYR SQ SCH (20:06)
[2022-07-28] MEDS: FAMOTIDINE 20 MG TAB PO SCH (20:06)
[2022-07-28] MEDS: GABAPENTIN 300 MG CAP PO SCH (20:06)
[2022-07-29] MEDS: ACETAMINOPHEN 500 MG TAB PO SCH ×3 (03:25→17:33)
[2022-07-29] MEDS: oxyCODONE HCL IR 5 MG TAB (IMMEDIATE RELEASE) PO PRN ×4 (05:45→21:50)
[2022-07-29] MEDS: PANTOprazole 40 MG TAB PO SCH (08:21)
[2022-07-29] MEDS: POTASSIUM CHLORIDE 10 MEQ TABCR PO SCH (08:21)
[2022-07-29] MEDS: allopurinoL 300 MG TAB PO SCH (08:21)
[2022-07-29] MEDS: CITALOPRAM 20 MG TAB PO SCH (08:21)
[2022-07-29] MEDS: CARBIDOPA/LEVODOPA 25/100MG TAB PO SCH ×3 (08:22→21:49)
[2022-07-29] MEDS: DOCUSATE SODIUM 100 MG CAP PO SCH ×2 (08:22→21:50)
[2022-07-29] MEDS: SPIRONOLACTONE 12.5 MG TAB PO SCH (08:23)
[2022-07-29] MEDS: GABAPENTIN 100 MG CAP PO SCH (08:23)
[2022-07-29] MEDS: ASPIRIN 81 MG ECTAB PO SCH (08:23)
[2022-07-29] MEDS: LIDOCAINE 5% 1 PATCH TD SCH ×2 (08:24→12:07)
[2022-07-29] MEDS: INSULIN ASPART PER UNIT SC SCH ×4 (08:37→21:49)
[2022-07-29] MEDS ORDERED: LANTUS PER UNIT CHARGE SQ SCH ×2 (09:00)
[2022-07-29] MEDS ORDERED: oxyCODONE HCL IR 5 MG TAB (IMMEDIATE RELEASE) PO PRN (09:10)
--- NOTE | 2022-07-29 09:27 | Palliative Care Progress Note ---
Date of Service July 29, 2022 Assessment & Plan (1) Neuropathic pain: Plan: Lethargy after 2-3 dose of very low dose methadone. He is also on prn oxycodone. He has been on this for some time and tolerating well. Methadone with its NMDA receptor activity is an important component of his pain management. Will decrease to 2.5mg at HS with hold for lethargy. Oxycodone with a half life of 4-6 hours will not effectively address his pain if given every eight hours. If reduction is needed, would reduce dose rather than frequency. Dose decreased to 5mg every four hours as needed and monitor. He also had an increase in his gabapentin on admission. Discussed with RN and Dr. Moses. (2) Palliative care encounter: Plan: Mr. Merritt has consistently refused further cancer treatment, even after discussion with Dr. Jackson. He would prefer to live as well as he can for the time remaining. He is agreeable to hospice care at home. Case management is coordinating delivery of equipment and hospice admission. I spoke with his daughter, Suzette, she supports his decision. She has unfortunately had experience with hospice and caring for a loved one after her of cancer. She tells me that as long as he is comfortable, she is at peace and able to care for him at home. Admission and Anticipated Discharge Date Admission Date: July 28, 2022 Subjective Awake, alert. He was lethargic for several hours yesterday. Review of Systems Review of Systems: ESAS Pain 2/3 Dyspnea 0/3 Nausea 0/3 Anorexia 0/3 Fatigue 2/3 Drowsiness 0/3 Physical Exam Constitutional: no acute distress and not lethargic Respiratory: normal respiratory effort; no labored breathing Gastrointestinal (Abdomen): obese LBM 3/8 Neurologic: Speech / Cognition: normal cognition Results & Data ([facility]) Vital Signs (Past 12 Hours) Vital Signs Temp Pulse Resp BP Pulse Ox O2 Del Method 07/29/22 07:03 97.3 F L 65 17 124/74 92 Room Air PG Care Time/CCT Total # of Minutes Spent Total Time Spent: 53 Total Time Spent with Patient: Total time spent is greater than 50% in coordination of care (as documented) at patient's floor/unit and/or counseling patient: [id number] Symptom management, goals of care, hospice, patient and family education and support, coordination of care Coding Level of Care Code 37463 SUB INP/OBS CARE 50MIN Diagnoses Neuropathic pain M79.2 Palliative care encounter Z51.5
[2022-07-29 09:53] LABS: BUN Creatinine Ratio 27.4 (10-20); Calcium 9.2 mg/dl (8.5-10.1); Creatinine Clr Calc Pharmacy 48.2 ml/min; Est GFR (African American) 50.5 ml/min; Est GFR (Non-African American) 43.5 ml/min; Potassium 4.4 mmol/L (3.5-5.1)
[2022-07-29] MEDS ORDERED: Nursing to Pharmacy Communication SCH (10:45)
--- NOTE | 2022-07-29 10:59 | Pharmacy Report ---
Pharmacy Glycemic Short Note 2 - Date of Service July 29, 2022 - Glycemic Short BSG Results (Last 24 hours): 07/28/22 07/28/22 07/28/22 12:08 17:00 20:18 Glucose POC Glucose 150 H 198 H 217 H 07/29/22 07/29/22 07:58 08:52 Glucose 240 H POC Glucose 177 H OUTPATIENT ANTIDIABETIC REGIMEN: * Lantus 30 units SQ BID * Trulicity 4.5mg SQ weekly * Metformin 850mg PO BID * Jardiance 10mg PO qAM * HbA1c: 9.3% (06/14/22) ASSESSMENT: 07/29/22: * Basal insulin was held the past two days, d/t BSGs below goal range. * Last evening, pt was hyperglycemic. Fasting BSG above goal this morning. * Lantus re-started this morning, at a conservative dose. * Novolog parameters adjusted to provide additional carb coverage, for better control throughout the day. 07/27 * Mr Merritt is an 82yo diabetic male admitted with pain related to neoplasm of rib. * Palliative care has been consulted and patient is considering hospice at discharge. * Do not expect that pt requires aggressive or tight glycemic control during admission. * Will aim to keep BSGs less than 180mg/dL as much as possible, while prioritizing limiting the risk of hypoglycemia. * Will continue to follow and adjust regimen as indicated. PLAN FOR INPATIENT GLYCEMIC CONTROL: * Hold outpatient oral diabetes medications * Basal insulin * Lantus 10 units SQ daily * Bolus insulin * NovoLog per scale ACHS or Q6hrs while NPO * Goal Range: Low 120 mg/dL - High 150 mg/dL * Correction Factor: 30 mg/dL/unit * Nutritional / Prandial insulin per carb ratio of 1 unit per 7 grams CHO consumed
[2022-07-29] MEDS: SENNA 8.6 MG TAB PO SCH ×2 (11:05→21:50)
[2022-07-29] MEDS: cefTRIAXone SODIUM 2,000 MG in DEXTROSE 5% 50 ML IV SCH (11:07)
--- NOTE | 2022-07-29 16:04 | Hospitalist Progress Note ---
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 Recently admitted to [facility] 06/03 through 06/08 for left rib pain and patient was found to have a left eighth rib mass. 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 Specimen was sent for molecular testing however this is pending. Patient completed radiation therapy to left eighth rib lesion. CT hip and lumbar spine reviewed revealing no acute fracture, dislocation or destructive bone lesion identified Per discussion with Dr. Jackson on 07/27, patient does not wish to pursue treatment and wishes to transition to hospice Consideration for additional palliative radiation however may be difficult for patient to travel to hospital daily for treatments. Patient did state he does not want any chemotherapy. Became more lethargic with medication changes yesterday and regimen readjusted today once patient back to mentation baseline Discussed plan with Dr. Islas of palliative care today today - resumed oxycodone Q4H frequency but decreased to 5mg for now, resume methadone 2.5mg H, Lidoderm patch, scheduled Tylenol, gabapentin at same dose Daughter updated by palliative service - plan to transition to hospice home tomorrow if stable (3) Diabetes mellitus, type II: Plan: Hgb A1c 9.8 on 05/2022 Hold oral agents, continue home dose Lantus. Add NovoLog sliding scale Glucose 325, no signs of DKA Pharmacy consult bsg controlled, 150 (4) CKD (chronic kidney disease), stage III: Plan: Baseline creatinine low-mid 1s Creatinine increased to 1.7 today he has been tolerating PO intake well, no significant edema Transitioning to hospice at discharge (5) (HFpEF) heart failure with preserved ejection fraction: Plan: Appears euvolemic hold torsemide, continue aldactone A total of 30 minutes was spent with greater than 50% of that time personally viewing all current laboratory work and diagnostic imaging studies obtained in the ED. Additionally, I was able to view the patients past medication reconciliation and history with direct visualization in the patients chart. Included in the time above, a portion of that time was spent assessing the patient while discussing and collaborating with specialists, if necessary, and making medical decision making on treatment plan. All of the above was collaborated with Dr. Moses. Please see addendum for further details. Admission and Anticipated Discharge Date Admission Date: July 28, 2022 Subjective Seen and examined in 350-2. Currently having knee and hip pain. Alert and oriented after periods of AMS yesterday. Denies any additional symptoms overnight. Is on hospice and planning for discharge home once medically stable and pain regimen determined. Denies fever, chills, lightheadedness, chest pain, shortness of breath, abdominal pain, nausea,dysuria or diarrhea. Review of Systems 2 Review of Systems: At least ten systems reviewed and negative except as noted in the HPI. Physical Exam 2 Physical Exam: Gen: WD/WN, NAD, resting comfortably in bed, alert and orientedx3 HEENT: Normocephalic, atraumatic, conjunctivae moist, sclerae anicteric, mucous membranes moist Lung: Clear to Auscultation bilaterally, no wheezes/rales/rhonchi Heart: Regular rate, regular rhythm, no murmurs, rubs, or gallops Abdomen: Soft, NT, ND +BS x 4 Extremities: no edema Skin: Warm, no rash Results & Data Results & Data ([facility]) Vital Signs (Past 12 Hours) Vital Signs Temp Pulse Resp BP BP Pulse Ox O2 Del Method 07/29/22 14:01 36.9 C 84 17 133/78 96 Room Air 07/29/22 07:03 36.3 C L 65 17 124/74 92 Room Air Laboratory Results [facility] 07/29/22 08:52 Sodium 134 L Potassium 4.4 Chloride 99 Carbon Dioxide 28 BUN 40 H Creatinine 1.46 H Glucose 240 H Calcium 9.2 Diagnostic Findings Hip/Pelvis X-Ray 07/26/22 09:50 XR hip RT 2V w pelvis CLINICAL HISTORY: pain TECHNIQUE: 2 views of the right hip and single frontal view of the pelvis were obtained. Comparison: None available at the time of this dictation. FINDINGS: There is no evidence of an acute fracture. Prostate therapy beads are seen. There is a left total hip arthroplasty. Degenerative changes are seen in the hip joint. No soft tissue abnormality is seen. IMPRESSION: Degenerative changes without evidence of acute abnormality. ACT 112: Negative or not required by law. Electronically signed by: Fritz Weber M.D. 07/26/2022 11:12 AM Chest X-Ray 07/26/22 09:52 XR chest 1V portable CLINICAL HISTORY: rib mass TECHNIQUE: Single frontal radiograph of the chest was obtained. Comparison: Comparison is made to chest radiograph 07/12/[address] chest 06/24/2022 FINDINGS: No lines and tubes are seen. Cardiomegaly is noted. The aortic arch is calcified. Lungs are underinflated but clear. No evidence of pleural effusion or pneumothorax. Large left lower chest wall mass is again seen bony destruction of the eighth rib is better seen in cross sectional imaging. IMPRESSION: Redemonstration of left rib mass. No acute cardiopulmonary abnormalities. ACT 112: Negative or not required by law. Electronically signed by: Fritz Weber M.D. 07/26/2022 11:[address] 07/26/22 14:35 CT hip RT wo con HISTORY: 82 years-old Male right hip pain, hx metastatic disease acute right hip pain without reported trauma. History of osteolytic bony metastasis. COMPARISON: CT lumbar spine of same day, CT abdomen and pelvis 06/03/2022 TECHNIQUE: Multiple axial CT images of the right hip were obtained without the use of IV contrast. A dose lowering technique was used consistent with the principals of ALARA. FINDINGS: Distended urinary bladder. Brachytherapy seeds within the enlarged prostate redemonstrated. Mild subcutaneous edema lateral to the right hip. No fluid col lection or large joint effusion. Demineralized appearance of the bones. Degeneration with partial bony fusion of the right SI joint. Moderate osteoarthritis of the right hip. No acute fracture, dislocation, avascular necrosis or destructive bone lesions identified. IMPRESSION: 1. No acute fracture, dislocation or destructive bone lesion identified. 2. Urinary bladder distention. ACT 112: Negative or not required by law. The above report was generated using voice recognition software. It may contain grammatical, syntax or spelling errors. Electronically signed by: Brandon Aguilar M.D. 07/26/2022 3:[address] 07/26/22 14:35 CT SCAN OF THE LUMBAR SPINE WITHOUT IV CONTRAST CLINICAL HISTORY: Low back pain. Right hip pain. Reported history of metastatic disease. COMPARISON STUDY: Abdominal CT dated 06/03/2022. TECHNIQUE: CT scan of the lumbar spine is performed from the lower thoracic spine to the sacrum. Images are reviewed in the axial, sagittal, and coronal planes. IV contrast was not administered for this examination. A dose lowering technique was utilized adhering to the principles of ALARA. FINDINGS: The skeletal structures are heterogeneously osteopenic. There is no evidence of acute fracture or malalignment involving the lumbar spine. A mild chronic superior endplate compression deformity of L5 is unchanged. Vertebral body height is otherwise maintained throughout the lumbar spine. Alignment is preserved. Large anterior and lateral marginal osteophytes are seen throughout. The transverse and spinous processes are intact. There is no spondylolysis. No definite lytic or blastic lesion is seen involving the lumbar spine. There is mild multilevel degenerative disc space narrowing. Posterior disc osteophyte complexes are seen at all lumbar levels. There is no CT evidence of high-grade central canal stenosis. There are right lateral disc bulges at L2-L3, L3-L4, and L4-L5. Bilateral disc bulge is noted at L5-S1. There is multilevel facet arthropathy, greatest in the lower lumbar region. The visualized sacrum and bony pelvis appear intact. Degenerative change is seen in the sacroiliac joints. There is fatty atrophy of the paraspinous musculature. There is advanced atherosclerotic calcification of the abdominal aorta which is normal in caliber. No retroperitoneal lymphadenopathy is seen. IMPRESSION: 1. No acute bony abnormality is seen involving the lumbar spine. 2. There is a chronic compression deformity of L5. 3. No lytic or blastic lesion is clearly seen involving the lumbar spine. 4. Degenerative disc disease and spondylosis as above. ACT 112: Negative or not required by law. Electronically signed by: Miguel Bloom M.D. 07/26/2022 3:43 PM
[2022-07-29] MEDS: TAMSULOSIN HCL 0.4 MG CAP PO SCH (17:32)
[2022-07-29] MEDS ORDERED: METHADONE HCL 5 MG TAB PO SCH ×2 (21:00)
[2022-07-29] MEDS ORDERED: SENNA 8.6 MG TAB PO SCH (21:00)
[2022-07-29] MEDS: PRAVASTATIN SOD 20 MG TAB PO SCH (21:49)
[2022-07-29] MEDS: FAMOTIDINE 20 MG TAB PO SCH (21:50)
[2022-07-29] MEDS: GABAPENTIN 300 MG CAP PO SCH (21:50)
[2022-07-29] MEDS: ENOXAPARIN INJ 30 MG/0.3 ML SYR SQ SCH (21:51)
[2022-07-30] MEDS: ACETAMINOPHEN 500 MG TAB PO SCH ×2 (00:08→08:08)
[2022-07-30] MEDS: oxyCODONE HCL IR 5 MG TAB (IMMEDIATE RELEASE) PO PRN ×3 (02:20→14:18)
[2022-07-30] MEDS: allopurinoL 300 MG TAB PO SCH (08:01)
[2022-07-30] MEDS: CARBIDOPA/LEVODOPA 25/100MG TAB PO SCH ×2 (08:02→13:34)
[2022-07-30] MEDS: ASPIRIN 81 MG ECTAB PO SCH (08:02)
[2022-07-30] MEDS: DOCUSATE SODIUM 100 MG CAP PO SCH (08:03)
[2022-07-30] MEDS: CITALOPRAM 20 MG TAB PO SCH (08:03)
[2022-07-30] MEDS: LIDOCAINE 5% 1 PATCH TD SCH (08:04)
[2022-07-30] MEDS: GABAPENTIN 100 MG CAP PO SCH (08:04)
[2022-07-30] MEDS: PANTOprazole 40 MG TAB PO SCH (08:05)
[2022-07-30] MEDS: POTASSIUM CHLORIDE 10 MEQ TABCR PO SCH (08:06)
[2022-07-30] MEDS: SENNA 8.6 MG TAB PO SCH (08:06)
[2022-07-30] MEDS: SPIRONOLACTONE 12.5 MG TAB PO SCH (08:07)
[2022-07-30 08:29] LABS: Calcium 9.1 mg/dl (8.5-10.1); Potassium 4.9 mmol/L (3.5-5.1)
[2022-07-30 08:35] LABS: BUN Creatinine Ratio 22.2 (10-20); Creatinine Clr Calc Pharmacy 42.2 ml/min; Est GFR (African American) 42.9 ml/min
[2022-07-30] MEDS: INSULIN ASPART PER UNIT SC SCH ×2 (08:45→12:47)
[2022-07-30] MEDS ORDERED: LANTUS PER UNIT CHARGE SQ SCH ×2 (09:00→21:00)
--- NOTE | 2022-07-30 10:37 | Palliative Care Progress Note ---
Date of Service July 30, 2022 Assessment & Plan (1) Neuropathic pain: Plan: He rates pain at tolerable level with current medications. He has had oxycodone x 5 (25mg) in last 24 hours. Continue hs methadone, lidocaine patch and gabapentin Discussed with daughter to hold methadone if he is lethargic and contact hospice (2) Palliative care encounter: Plan: Plan for discharge home today with hospice. His daughter has everything set up. Mr. Merritt tells me that he feels safe knowing that she will be there for him. Discussed with case management. Admission and Anticipated Discharge Date Admission Date: July 28, 2022 Subjective Sleeping but easily arousable. Able to converse, oriented x 3. Review of Systems Review of Systems: ESAS Pain 2/3 Dyspnea 0/3 Nausea 0/3 Anxiety 0/3 Drowsiness 1/3 Physical Exam Constitutional: no acute distress Respiratory: normal respiratory effort; no labored breathing Skin: warm and dry Neurologic: Speech / Cognition: normal cognition Psychiatric: Orientation: oriented x 3 Genitourinary: condom catheter Results & Data ([facility]) Vital Signs (Past 12 Hours) Vital Signs Temp Pulse Resp BP Pulse Ox O2 Del Method 07/30/22 07:45 97.3 F L 59 L 15 124/78 96 Room Air PG Care Time/CCT Total # of Minutes Spent Total Time Spent with Patient: Total time spent is greater than 50% in coordination of care (as documented) at patient's floor/unit and/or counseling patient: Coding Level of Care Code 93365 SUB INP/OBS CARE 2/35MIN Diagnoses Neuropathic pain M79.2 Palliative care encounter Z51.5
--- NOTE | 2022-07-30 13:07 | Discharge Summary ---
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 History obtained from patient, daughter over the telephone, review of outpatient PCP records, recent inpatient admission, and discussion with Dr. Islas palliative medicine. Patient recently admitted to [facility] 06/03 through 06/08 for left rib pain and patient was found to have a left eighth rib mass. 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 Specimen was sent for molecular testing however this is pending. Patient completed radiation therapy to left eighth rib lesion. Over the past few weeks, patient has had increasing right hip pain radiating into the right leg. Patient's hydrocodone was changed to oxycodone with minimal improvement. Patient reports his right leg feels very weak. He has not had any falls. Patient denies chest pain and shortness of breath. No lightheadedness, dizziness, diaphoresis, syncopal events. Denies recent illnesses, fevers, chills. Appetite remains good, denies abdominal pain, nausea, vomiting, diarrhea. Has urinary incontinence which is unchanged from baseline. Denies dysuria and hematuria. In the ED, patient is hemodynamically stable. Labs show creatinine 1.4, glucose 325. Hip and pelvis x-ray unremarkable for acute findings. Patient was given IVF, IV morphine. Dr. Islas with palliative medicine completed consultation in the ED. Admission Exam Per Admitting Provider Constitutional: WD/WN, vitals as above Eyes: PERRL, conjunctivae normal, anicteric sclerae ENMT: external ear and nose normal, oropharynx normal Respiratory: normal respiratory effort, lungs clear to auscultation Cardiovascular: Rate/Rhythm: regular rate and regular rhythm Vessels: normal peripheral pulses Extremities: no edema Gastrointestinal (Abdomen): normal bowel sounds, soft, nontender, no hepatosplenomegaly Musculoskeletal: Patient grabbing at right hip during exam, hip exam limited due to pain, patient is lifting the right leg off of the bed without difficulty Skin: no rashes, warm and dry Neurologic: PERRL, EOMI, accommodation nl, no face palsy, no dysarthria Psychiatric: A+Ox3, euthymic affect Principal Dx & Hospital Course #1 = Principal Diagnosis (1) Neoplasm related pain (acute) (chronic): (2) Neoplasm of rib: (3) Diabetes mellitus, type II: (4) CKD (chronic kidney disease), stage III: (5) (HFpEF) heart failure with preserved ejection fraction: Plan This is a 82-year-old male with PMH DM type II, dyslipidemia, chronic diastolic CHF, HTN, CKD stage III, history of prostate cancer s/p Lupron and implant, Parkinson's, depression, and other problems listed below who presents to the ED for evaluation of right hip pain. Patient was recently admitted to [facility] 06/03 through 06/08 for left rib pain and patient was found to have a left eighth rib mass. 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 Specimen was sent for molecular testing however this is pending. Patient completed radiation therapy to left eighth rib lesion. Over the past few weeks, patient has had increasing right hip pain radiating into the right leg and CT hip and lumbar spine performed although did not reveal acute fracture, dislocation or destructive bone lesion identified. Per discussion with Dr. Jackson on 07/27, patient does not wish to pursue treatment and wished to transition to home hospice at time of discharge. Consideration for additional palliative radiation however may be difficult for patient to travel to hospital daily for treatments. Patient stated he does not want any chemotherapy. Became lethargic with medication changes and palliative care assisted in readjusting pain regimen and patient now comfortable and back to mentation baseline. Oxycodone dose decreased to 5mg Q4H PRN, methadone 2.5mg resumed, Lidoderm patch, scheduled Tylenol, gabapentin 100mg daily and 300mg HS. Daughter updated and prepared to bring patient home on hospice today. Discharge Exam Gen: WD/WN, NAD, resting comfortably in bed, alert and orientedx3 HEENT: Normocephalic, atraumatic, conjunctivae moist, sclerae anicteric, mucous membranes moist Lung: Clear to Auscultation bilaterally, no wheezes/rales/rhonchi Heart: Regular rate, regular rhythm, no murmurs, rubs, or gallops Abdomen: Soft, NT, ND +BS x 4 Extremities: no edema Skin: Warm, no rash Updated Medication List Medication Instructions Recorded Confirmed Type aspirin 81 mg tablet,delayed 81 mg PO DAILY 07/31/18 07/26/22 History release omega 1-jdf-kth-fish oil 1,000 mg 1 cap PO DAILY 07/31/18 07/26/22 History (120 mg-180 mg) capsule potassium chloride 10 mEq 10 meq PO DAILY 07/31/18 07/26/22 History tablet,extended release(part/cryst) spironolactone 25 mg tablet 12.5 mg PO DAILY 07/31/18 07/26/22 History tamsulosin 0.4 mg capsule 0.4 mg PO DAILY@1800 07/31/18 07/26/22 History allopurinol 300 mg tablet 300 mg PO QAM 10/26/21 07/26/22 History carbidopa 25 mg-levodopa 100 mg 1 tab PO TID 10/26/21 07/26/22 History tablet empagliflozin 10 mg tablet 10 mg PO DAILY 10/26/21 07/26/22 History (Jardiance) gabapentin 100 mg capsule 100 mg PO BID 10/26/21 07/26/22 History pantoprazole 40 mg tablet,delayed 40 mg PO DAILY 10/26/21 07/26/22 History release pravastatin 20 mg tablet 20 mg PO HS 10/26/21 07/26/22 History torsemide 20 mg tablet 20 mg PO DAILY 10/26/21 07/26/22 History citalopram 20 mg tablet 20 mg PO DAILY 11/07/21 07/26/22 History famotidine 20 mg tablet 20 mg PO HS 11/07/21 07/26/22 History dulaglutide 4.5 mg/0.5 mL 4.5 mg subcut WK 06/03/22 07/26/22 History subcutaneous pen injector (Trulicity) insulin glargine 100 unit/mL (3 30 unit subcut BID 06/03/22 07/26/22 History mL) subcutaneous pen (Lantus Solostar U-100 Insulin) docusate sodium 100 mg capsule 100 mg PO BID PRN constipation #30 06/08/22 07/26/22 Rx caps nystatin 100,000 unit/gram topical 1 applic EXT BID PRN Skin 07/12/22 07/26/22 History cream Irritation metformin 850 mg tablet 850 mg PO BID 07/26/22 07/26/22 History acetaminophen 500 mg tablet 1,000 mg PO Q8H pain #0 tabs 07/30/22 Rx (Tylenol Extra Strength) gabapentin 100 mg capsule 100 mg PO QAM #15 caps 07/30/22 Rx gabapentin 300 mg capsule 300 mg PO HS #15 caps 07/30/22 Rx lidocaine 5 % topical patch 1 patch transdermal QAM #5 ea 07/30/22 Rx methadone 5 mg tablet 2.5 mg PO HS #5 tabs 07/30/22 Rx oxycodone 5 mg tablet 5 mg PO Q4H PRN severe pain (scale 07/30/22 Rx score 7-10) #15 tabs sennosides 8.6 mg tablet (Senokot) 8.6 mg PO BID #30 tabs 07/30/22 Rx Hospital Stay Data Consultations 07/26/22 13:34 ED Decision to Admit Stat 07/26/22 14:19 Consult Palliative Care Routine 07/26/22 14:46 Consult Oncology Routine Diagnostic Imagining Performed 07/26/22 14:35 CT hip RT wo con Routine CT lumbar spine wo con Routine Pending Results Patient Have Any Pending Studies at Discharge: No Discharge Instructions Given to Patient (Per Discharging Provider) Discharging home on hospice in setting of adenocarcinoma. MEDICATION CHANGES: Oxycodone decreased to 5mg Q4H PRN for severe pain, methadone 2.5mg at night, lidocaine patch daily and gabapentin dose adjusted to 100mg daily and 300mg at night RECOMMENDATIONS FOR FOLLOW-UP: Discussed with daughter to hold methadone if he is lethargic and contact hospice Please take good care of yourself. Call if you have any questions or problems. You can reach a [facility] hospitalist on duty at [facility] 24 hours a day by calling [phone]. Total Time Total Time Spent Total Time Spent (In Minutes): 60 Supervising Physician Co-Signing Physician Notes Patient was seen and examined independently. Chart reviewed. Case discussed with IRVING. Agree with assessment and plan as above
== END 2022-07-30 14:34 | disposition hospice, home (50) | DRG 844 ==
LOC: 3W 09:37 → ED 09:37 → SUATTDRO 13:44 → 3W 16:51
DX: I50.32 Chronic diastolic (congestive) heart failure; G89.29 Other chronic pain; Z85.46 Personal history of malignant neoplasm of prostate; F32.A Depression, unspecified; Z92.3 Personal history of irradiation; C80.1 Malignant (primary) neoplasm, unspecified; Z79.4 Long term (current) use of insulin; M79.2 Neuralgia and neuritis, unspecified; Z86.16 Personal history of COVID-19; K21.9 Gastro-esophageal reflux disease without esophagitis; E11.22 Type 2 diabetes mellitus with diabetic chronic kidney disease; Z51.5 Encounter for palliative care; E78.5 Hyperlipidemia, unspecified; Z79.82 Long term (current) use of aspirin; G89.3 Neoplasm related pain (acute) (chronic); Z79.84 Long term (current) use of oral hypoglycemic drugs; I13.0 Hypertensive heart and chronic kidney disease with heart failure and stage 1 through stage 4 chronic kidney disease, or unspecified chronic kidney disease; G20 Parkinson's disease; N18.30 Chronic kidney disease, stage 3 unspecified; Z79.899 Other long term (current) drug therapy